=== PATIENT | female | born 2000 | race Caucasian/White ===

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

== ENCOUNTER 2018-05-30 13:03 | Emergency (ER) | payer MEDICAID, SELFPAY ==
[2018-05-30 13:04] VITALS: BP 120/71; PULSE 85; RESP 16; TEMP 36.6; O2SAT 100; BMI 24.6
[2018-05-30] MEDS: proCHLORPERazine 10 MG/2 ML Vial IV (15:47)
[2018-05-30] MEDS: 0.9% Normal Saline 1,000 ML 999 ML IV (15:47)
[2018-05-30] MEDS: Ketorolac 30 MG/ML Syringe IV (15:47)
[2018-05-30] MEDS: DiphenhydrAMINE 50 MG/ML Syringe IV (15:47)
[2018-05-30 15:50] VITALS: BP 120/77; PULSE 86; RESP 16; O2SAT 100
[2018-05-30 17:06] VITALS: BP 111/73; PULSE 69; RESP 14; O2SAT 99
--- NOTE | 2018-05-30 17:33 | ED.VISSUMM ---
- ER Visit Summary Date of Service: 05/30/18 Chief Complaint: Headache History of Present Illness: The patient is a 18 F with chronic recurrent headaches presents with a gradual onset of headache that started about 5 weeks ago and is not improved with outpatient medications. She has no vision changes but she has photophobia. She has no fever chills neck pain or any other symptoms. Physical Examination: Appears in slight distress Moist mucous membranes, no obvious facial deformity No C-spine tenderness supple neck. Regular rate and rhythm without any obvious murmurs Clear lungs bilaterally speaking in full sentences without any obvious respiratory distress Abdomen soft and nontender no guarding or rebound Moves all extremities without any difficulty or pain. Skin does not show any obvious rashes or lesions, no trauma. Alert oriented ?3 with no gross focal deficit Emergency Department Course and Treatment: Patient is given Toradol Compazine and Benadryl along with 1 L of IV fluids as of 1731 her headache is gone I will discharge her in stable condition Disposition: Discharge stable condition Impression: Headache This note was generated with [employer] dictation software. It may contain incorrect words, spelling, and punctuation that were not noted in review of the chart prior to signing ED Disposition - Plan for ED Patient: Chief Complaint: Headache Referrals: Mina Vu MD [Primary Care Provider] -
--- NOTE | 2018-05-30 17:38 | ED.DEP ---
ED Disposition - Plan for ED Patient: Disposition: Home or Assisted Living Chief Complaint: Headache Instructions: ED Headache Migraine Referrals: Mina Vu MD [Primary Care Provider] - 3-5 Days
[2018-05-30 17:48] VITALS: BP 113/90; PULSE 86; RESP 16; TEMP 36.7; O2SAT 99
== END 2018-05-30 17:49 | disposition home or self-care (01) ==
PROVIDERS: Emergency Provider Emergency Medicine; Family Provider Internal Medicine; PCP Internal Medicine
DX: R51 Headache (principal); G89.29 Other chronic pain; H53.149 Visual discomfort, unspecified; Z72.0 Tobacco use; Z79.899 Other long term (current) drug therapy
CPT/HCPCS: 96361; 96374; 96375; 99282; J7030; A4216

== ENCOUNTER → 2018-06-10 08:45 | Outpatient (CLI) | payer MEDICAID, SELFPAY ==
--- NOTE | 2018-06-10 08:47 | MRI_ITS ---
STUDY: MRI BRAIN WITH AND WITHOUT CONTRAST REASON FOR EXAM: Female, 18 years old. complicated migraine, frontal headache, weakness/memory loss during headache; x 8 wks TECHNIQUE: Standardized multiplanar fat and water weighted pulse sequences were obtained. 6 ml of Gadavist contrast material was administered intravenously for the contrast portion of the examination. COMPARISON: None. FINDINGS: Normal size of the ventricles and extra-axial spaces for the patient's age. Normal white matter tracts of the supratentorial brain. Normal bilateral basal ganglia. Normal thalami. There is no extra-axial fluid accumulation. Normal flow voids within the major intracranial circulation suggesting patency by spin echo criteria. Normal venous enhancement. There is no enhancing intra-axial or extra-axial abnormality. Normal sella turcica, pituitary gland, infundibular stalk, optic chiasm and hypothalamus. Normal tectal plate and pineal gland. Normal midbrain, sammy and medulla. Normal cerebellum. Normal basal cisterns. Normal bilateral temporal bones. Normal bilateral internal auditory canals. No demonstrated orbital abnormality, within the constraints of a routine brain study. Normal visualized paranasal sinuses. Normal calvarium and skull base. Normal visualized soft tissue structures. Normal visualized upper cervical spine. MRI/Brain W/WO Contrast IMPRESSION: Normal unenhanced and enhanced MRI of the brain. Electronically Signed: Haris Elliott MD at 9:16 EST Tel , Service support ,
== END ==
PROVIDERS: Family Provider Internal Medicine; PCP Internal Medicine; Visit Provider Nurse Practitioner Family
DX: G43.109 Migraine with aura, not intractable, without status migrainosus (principal)
CPT/HCPCS: 70553; A9585

== ENCOUNTER 2018-06-14 15:39 | Emergency (ER) | payer MEDICAID, SELFPAY ==
[2018-06-14 15:13] VITALS: BMI 24.7
[2018-06-14 15:40] VITALS: BP 129/70; PULSE 92; RESP 16; TEMP 36.7; O2SAT 100; BMI 24.4
--- NOTE | 2018-06-14 16:05 | ED.VISSUMM ---
- ER Visit Summary Date of Service: 06/14/18 Chief Complaint: Trouble urinating History of Present Illness: The patient is a 18 F history of migraine headaches. States that her last menstrual period was 05/20/2018. She had 2 days to decrease urinary output and some hematuria. Denies nausea vomiting or diarrhea. Denies any fluid retention. Denies any prior bladder or kidney history. No fever. No vaginal bleeding or discharge. Physical Examination: Well-appearing young female. Vital signs are stable and afebrile. Sh EENT exam unremarkable. Neck nontender. Lungs clear to auscultation bilaterally. Heart regular rhythm no murmur. Abdomen soft nontender. Normal bowel sounds. No peritoneal signs. Patient moving all 4 extremities. Calves are nontender without edema or cords. Neurologically the patient is awake alert with no focal motor deficits. There is Test Results: Urinalysis no acute abnormality. 1+ bacteria. But no other signs of infection. A culture was sent. Urine was sent by nursing was negative. Bladder scan was only 75. No signs of urinary retention. Emergency Department Course and Treatment: Clinically patient has a normal exam. Bladder scan and UA will be obtained. Treatment Plan: Patient be discharged home. Since she has what she believes is hematuria she will be discharged to follow-up with her primary care physician. Disposition: Discharge Impression: Gross hematuria of uncertain etiology This note was generated with [employer] dictation software. It may contain incorrect words, spelling, and punctuation that were not noted in review of the chart prior to signing ED Disposition - Plan for ED Patient: Chief Complaint: Complaint Referrals: Mina Vu MD [Primary Care Provider] -
[2018-06-14 16:33] LABS: Mucous, Urine 0 SEEN /hpf (<or=2+); Red Blood Cells-Urine 0 SEEN /hpf (0-5)
[2018-06-14 16:35] LABS: Color, Urine Yellow (Yellow); Glucose, Dipstick Normal (Normal); Ketone-Dipstick Negative (Negative); Leukocyte Esterase-Dipstick Negative /ul (Negative); Nitrite-Dipstick Negative (Negative); Occult Blood-Urine Negative /ul (Negative); Protein-Dipstick Negative (Negative); Urine Bilirubin Dipstick Negative (Negative); Urine Clarity Sl. Cloudy (Clear); Urine Urobilinogen Normal (Normal)
--- NOTE | 2018-06-14 16:46 | NURSING ---
PT REQUEST A PREG TEST. ORDER OBTAINED FROM DR. Jaqueline BOLANOS, RN [id number]
[2018-06-14 16:57] LABS: Bacteria 1+ /hpf (None Seen); Internal QC Validated? YES +Cl - CLEAR BKGD; Pregnancy, Urine Negative Negative; Squamous Epithelial Cells - UA 0-5 SEEN /hpf (5-10); White Blood Cells 0-5 SEEN /hpf (0-5)
--- NOTE | 2018-06-14 17:34 | ED.DEP ---
ED Disposition - Plan for ED Patient: Disposition: Home or Assisted Living Chief Complaint: Complaint Instructions: ED Hematuria Referrals: Mina Vu MD [Primary Care Provider] - 3-5 Days Additional Instructions: Return if feeling worse. Your urine showed no signs of infection. A urine culture was also sent when she will return in the next 24 hours and he will be notified if there is any signs of infection. Urine test was negative. All up with your doctor.
[2018-06-14 17:41] VITALS: BP 118/73; PULSE 80; RESP 14; O2SAT 100
== END 2018-06-14 17:42 | disposition home or self-care (01) ==
PROVIDERS: Emergency Provider Emergency Medicine; Family Provider Internal Medicine; PCP Internal Medicine
DX: R31.0 Gross hematuria (principal); R30.0 Dysuria; Z79.899 Other long term (current) drug therapy
CPT/HCPCS: 81001; 81025; 87086; 99282

== ENCOUNTER 2018-06-28 11:15 | Emergency (ER) | payer MEDICAID, SELFPAY ==
[2018-06-26 11:48] VITALS: BMI 24.4
[2018-06-28 11:16] VITALS: BP 134/76; PULSE 103; RESP 18; TEMP 36.5; O2SAT 100; BMI 24.5
--- NOTE | 2018-06-28 11:38 | ED.DCSUM_ITS ---
- ER Visit Summary Date of Service: 06/28/18 Chief Complaint: Headache History of Present Illness: The patient is a 18 F with history of migraines. She states she has had migraines for the past 5 weeks that are getting worse. She had an MRI of her brain last month was reportedly normal. Her amitriptyline dose was increased. She was seen at the [facility] 2 days ago and then at [facility] yesterday. Patient is complaining of generalized headache that is worse above her eyes. She did go to work this morning but left due to worsening headache. She reports black blurry vision that she had before with the severe headaches. She states she cannot feel her legs. Physical Examination: Vital signs unremarkable. Patient sitting upright in a wheelchair at bedside. She is assisted to the bed. Head neck examination reveals no sign of trauma. No meningismus. Heart is tachycardic and regular. Lung sounds are clear. Abdomen is soft nontender. Neuro exam reveals that she is tearful. She is moving all 4 extremities. She has strong distal pulses throughout. Test Results: CBC was a white count 12.5 with unremarkable differential. Chemistry studies significant for potassium 3.2 and a glucose of 73. Emergency Department Course and Treatment: Patient is given Toradol, Compazine, Benadryl, and IV fluids. On repeat evaluation she is sleeping comfortably. She easily awakens. Headache is significantly improved. Patient does state that her headache improved after receiving meds at [facility] yesterday, but returned last evening. I will give her prescriptions for the above meds to have at home as well. She will be given a couple days of potassium replacement. She will be referred to neurology for follow-up. Treatment Plan: [] Disposition: Discharge Impression: 1. Migraine, improved 2. Mild hypokalemia This note was generated with [employer] dictation software. It may contain incorrect words, spelling, and punctuation that were not noted in review of the chart prior to signing ED Disposition - Plan for ED Patient: Chief Complaint: Neuro S/Sx Referrals: Mina Vu MD [Primary Care Provider] -
[2018-06-28] MEDS: 0.9% Normal Saline 1,000 ML 999 ML IV (11:40)
[2018-06-28] MEDS: DiphenhydrAMINE 50 MG/ML Syringe 25 MG IV (11:40)
[2018-06-28] MEDS: proCHLORPERazine 10 MG/2 ML Vial IV (11:41)
[2018-06-28] MEDS: Ketorolac 30 MG/ML Syringe IV (11:41)
[2018-06-28 11:50] LABS: Absolute Lymphocyte Count 2.71 X10^3/ul (0.83-4.51); Absolute Neutrophil Count 8.8 X10^3/uL (2.0-7.7); Basophil# 0.01 X10^3/uL; Basophil% 0.1 % (0-1); Eosinophil# 0.01 X10^3/uL; Eosinophils% 0.1 % (0-5); Hematocrit 38.3 % (37-47); Hemoglobin 12.4 g/dl (12.0-15.0); Lymphocyte # 2.71 X10^3/ul (4.0); Lymphocyte % 21.7 % (19-41); Mean Corp Hgb Conc 32.4 g/gl (32-36); Mean Corpuscular Hgb 30.5 pg (27.0-32.0); Mean Corpuscular Volume 94.1 fL (81-99); Mean Platelet Vol. 9.4 fl (6.2-12.0); Monocyte# 0.89 X10^3/uL; Monocyte% 7.1 % (0-10); Neutrophil # 8.83 X10^3/uL (2.7-7.7); Neutrophil % 70.8 % (47-70); Platelet Count 306 K/mm3 (150-450); RBC Distribution Width CV 13.5 % (11.6-14.6); RBC Distribution Width SD 44.9 fl (35.1-43.9); Red Blood Count 4.07 M/mm3 (4.2-5.4); White Blood Count 12.5 K/mm3 (4.4-11.0)
[2018-06-28 11:51] LABS: POSITIVE COUNT NO; POSITIVE DIFFERENTIAL NO; POSITIVE MORPHOLOGY NO
[2018-06-28 12:07] LABS: Anion Gap 8 (5-15); BUN 14 mg/dL (7-18); BUN/Creat Ratio 19.3 RATIO (10-20); Calcium,Total 8.7 mg/dL (8.5-10.1); Chloride 107 mmol/L (98-107); Creatinine, Serum 0.73 mg/dL (0.55-1.02); EST Glomerular Filtration Rate 108 mL/min (>60); Est Glom Filt Rate - Afr Amer 131 mL/min (>60); Estimated Creatinine Clearance 92.76 ml/min; Glucose 73 mg/dL (74-106); Potassium 3.2 mmol/L (3.5-5.1); Sodium Level 142 mmol/L (136-145)
--- NOTE | 2018-06-28 12:44 | ED.DEP ---
ED Disposition - Plan for ED Patient: Disposition: Home or Assisted Living Chief Complaint: Neuro S/Sx Instructions: ED Headache Migraine, ED Potassium Deficiency Prescriptions: DiphenhydrAMINE [Benadryl] 50 mg PO Q6H PRN PRN #7 capsule PRN Reason: Headache Prochlorperazine Maleate [Compazine] 10 mg PO 4X/DAY PRN PRN #7 tablet PRN Reason: Headache Potassium Chloride [K-Dur] 20 meq PO BID #7 tablet Ketorolac [Toradol] 10 mg PO Q6H PRN #7 tablet PRN Reason: Pain Referrals: Mina Vu MD [Primary Care Provider] - 1-2 Weeks Pepe Daniels MD [STAFF PHYSICIAN] - As soon as possible
[2018-06-28 12:46] LABS: Pregnancy, Serum, hCG Quali. NEGATIVE Negative (0-9 Nonpreg)
[2018-06-28 13:03] VITALS: PULSE 103; RESP 16; O2SAT 100
== END 2018-06-28 13:04 | disposition home or self-care (01) ==
PROVIDERS: Emergency Provider Emergency Medicine; Family Provider Internal Medicine; PCP Internal Medicine
DX: G43.909 Migraine, unspecified, not intractable, without status migrainosus (principal); E87.6 Hypokalemia; F32.9 Major depressive disorder, single episode, unspecified; Z79.899 Other long term (current) drug therapy; Z87.891 Personal history of nicotine dependence
CPT/HCPCS: 80048; 84703; 85025; 96361; 96374; 96375; 99284; J7030; A4216

== ENCOUNTER → 2018-07-24 15:24 | Outpatient (CLI) | payer MEDICAID, SELFPAY ==
[2018-07-11 16:24] VITALS: BMI 24.5
[2018-07-24 17:49] LABS: Anion Gap 10 (5-15); BUN 15 mg/dL (7-18); BUN/Creat Ratio 23.2 RATIO (10-20); Calcium,Total 8.8 mg/dL (8.5-10.1); Chloride 105 mmol/L (98-107); Creatinine, Serum 0.65 mg/dL (0.55-1.02); EST Glomerular Filtration Rate 124 mL/min (>60); Est Glom Filt Rate - Afr Amer 150 mL/min (>60); Glucose 74 mg/dL (74-106); Potassium 3.5 mmol/L (3.5-5.1); Sodium Level 141 mmol/L (136-145)
== END ==
PROVIDERS: Family Provider Internal Medicine; PCP Internal Medicine; Referring Provider Nurse Practitioner Family; Visit Provider Nurse Practitioner Family
DX: E87.6 Hypokalemia (principal); R61 Generalized hyperhidrosis
CPT/HCPCS: 36415; 80048; 84443

== ENCOUNTER 2018-07-30 12:12 | Emergency (ER) | payer MEDICAID, SELFPAY ==
[2018-07-11 16:24] VITALS: BMI 24.5
[2018-07-30 12:13] VITALS: BP 115/69; PULSE 70; RESP 16; TEMP 36.8; O2SAT 100; BMI 24.3
[2018-07-30] MEDS: Metoclopramide 10 MG/2 ML Vial IV (12:41)
[2018-07-30] MEDS: Ketorolac 30 MG/ML Syringe IV (12:41)
[2018-07-30] MEDS: 0.9% Normal Saline 1,000 ML 1000 ML IV (12:41)
[2018-07-30] MEDS: DiphenhydrAMINE 50 MG/ML Syringe 25 MG IV (12:41)
--- NOTE | 2018-07-30 13:54 | ED.DCSUM_ITS ---
- ER Visit Summary Date of Service: 07/30/18 Chief Complaint: [Headache] History of Present Illness: The patient is a 18 F [presents to the emergency department complaint of a headache that started around 8 AM today. Patient has a history of migraines of a chronic nature from a young age. Patient is sched uled to see a neurologist in a couple of months. Patient states that she was started on Imitrex by her primary care physician and that worked for a while but now the headaches are becoming more regular again. Patient denies any falls or head injuries. Patient rates her headache as a 10 out of 10 and similar to prior headaches. Patient states the headache is diffuse and she describes photophobia. She describes nausea. Patient denies any falls or head injuries or recent illness.] Physical Examination: [HEENT-PERRLA, EOMI. Cranial nerves II through XII grossly intact. TMs clear. Mucous membranes moist. No adenopathy. Cardiovascular-regular rate and rhythm without murmur or ectopy Lungs-clear to auscultation, chest wall stable without crepitus or subcu emphyse ma Abdomen-normoactive bowel sounds, soft, nontender, no rebound or rigidity, no peritoneal signs. Neuro [id number] and heel gomez testing within normal limits, negative Romberg, negative pronator drift, fundi benign Extremities-intact ?4, normal range of motion, normal pulses, atraumatic] Test Results: [None indicated] Emergency Department Course and Treatment: [Patient was given a liter normal same fluid bolus as well as Reglan, Benadryl, and Toradol. Patient's headache improved from a 10 out of 10 to a 3 out of 10. Patient is requesting to go home.] Treatment Plan: [Patient to follow-up with her primary care physician as needed and follow-up with neurology. Disposition: [Discharged home in stable condition] Impression: [Migrainous cephalgia] This note was generated with [employer] dictation software. It may contain incorrect words, spelling, and punctuation that were not noted in review of the chart prior to signing ED Disposition - Plan for ED Patient: Chief Complaint: Headache Referrals: Mina Vu MD [Primary Care Provider] -
--- NOTE | 2018-07-30 13:54 | ED.DEP ---
ED Disposition - Plan for ED Patient: Chief Complaint: Headache Instructions: ED Headache Migraine Referrals: Mina Vu MD [Primary Care Provider] - 3-5 Days
[2018-07-30 14:14] VITALS: PULSE 67; RESP 18; O2SAT 100
== END 2018-07-30 14:14 | disposition home or self-care (01) ==
PROVIDERS: Emergency Provider Emergency Medicine; Family Provider Internal Medicine; PCP Internal Medicine
DX: G43.909 Migraine, unspecified, not intractable, without status migrainosus (principal); Z79.899 Other long term (current) drug therapy
CPT/HCPCS: 96361; 96374; 96375; 99284; J7030; A4216

== ENCOUNTER → 2018-09-12 17:47 | Outpatient (CLI) | payer MEDICAID, SELFPAY ==
[2018-09-12 15:21] VITALS: BMI 24.3
[2018-09-12 20:28] LABS: Chlamydia Trachomatis by PCR Negative (Negative); Neisserai gonorrhoeae by PCR Negative (Negative); Probe Check PASS; Sample Adequacy Control PASS; Specimen Processing Control PASS
== END ==
PROVIDERS: Family Provider Internal Medicine; PCP Internal Medicine; Referring Provider Nurse Practitioner Women's Health; Visit Provider Nurse Practitioner Women's Health
DX: Z11.3 Encounter for screening for infections with a predominantly sexual mode of transmission (principal)
CPT/HCPCS: 87491; 87591

== ENCOUNTER → 2018-12-20 15:30 | Outpatient (CLI) | payer MEDICAID, SELFPAY ==
[2018-12-20 15:20] VITALS: BMI 30.2
== END ==
PROVIDERS: Family Provider Internal Medicine; PCP Internal Medicine; Visit Provider Nurse Practitioner Family
DX: J02.9 Acute pharyngitis, unspecified (principal)
CPT/HCPCS: 87070; 87077; 87186

== ENCOUNTER 2019-01-31 10:18 | Emergency (ER) | payer MEDICAID, SELFPAY ==
[2018-12-20 15:20] VITALS: BMI 30.2
[2019-01-31 10:19] VITALS: BP 118/84; PULSE 82; RESP 18; TEMP 36.6; O2SAT 100; BMI 27.4
--- NOTE | 2019-01-31 10:36 | ED.VISSUMM ---
- ER Visit Summary Date of Service: 01/31/19 Chief Complaint: Abdominal pain History of Present Illness: The patient is a 18 F who presents the emergency department for the evaluation of abdominal pain with nausea. Patient states that last night around 2100 hrs. she was in bed and developed a sharp stabbing pain in her right upper quadrant. She had nausea with it but no vomiting. It subsided and she went to sleep. This morning she woke and went to work. She arrived at approximately 0600hours she ate breakfast. She states that about 3 hours later the sharp stabbing pain returned. Does not radiate. She had a normal bowel movement. She has not vomited. She notes urinary frequency that began yesterday without dysuria or hematuria. No fevers. She states that gallbladder and appendicitis runs in the family but not kidney stones. Physical Examination: Afebrile vital signs are stable Gen: Well-nourished well-developed Head: Normocephalic atraumatic Eyes: Perrl EOMI ENT: TMs clear no rhinorrhea moist mucous membranes Neck: Supple no lymphadenopathy no JVD nontender CVS: Regular rate rhythm no murmurs normal S1-S2 Respiratory: No distress clear to auscultation bilaterally chest nontender Abdomen: Soft tenderness in the right lower right middle right upper quadrant without guarding or rebound nondistended normal bowel sounds no masses Back: Nontender Extremity: Nontender no edema Skin: Normal color no rash Neuro: alert orientated ?3 CN II-XII intact normal strength sensation reflexes gait cerebellar Psych: Normal affect normal mood Test Results: CBC CMP lipase urine and test were negative. CT the pelvis demonstrated increased amount of fecal material in the right. Emergency Department Course and Treatment: I suspect with the patient is feeling is her: Attempting to push the increased stool on the right side of her colon crossed. I do not see any acute emergency requiring admission or surgery. Patient will drink apple juice and may use a dose of magnesium citrate to help. Impression: 1. Acute abdominal pain 2. Constipation This note was generated with [employer] dictation software. It may contain incorrect words, spelling, and punctuation that were not noted in review of the chart prior to signing ED Disposition - Plan for ED Patient: Disposition: Home or Assisted Living Instructions: CONSTIPATION (Adult) Prescriptions: Magnesium Citrate [Citrate Of Magnesia] 300 ml PO X1 #1 bottle Prescription Printed Referrals: Mina Vu MD [Primary Care Provider] - 3-5 Days if not improving
[2019-01-31] MEDS: Ondansetron 4 MG/2 ML Vial IV (10:59)
[2019-01-31 11:04] LABS: Absolute Lymphocyte Count 2.29 X10^3/ul (0.83-4.51); Absolute Neutrophil Count 3.7 X10^3/uL (2.0-7.7); Basophil# 0.02 X10^3/uL; Basophil% 0.3 % (0-1); Eosinophils% 1.5 % (0-5); Hematocrit 39.2 % (37-47); Hemoglobin 13.1 g/dl (12.0-15.0); Lymphocyte # 2.29 X10^3/ul (4.0); Lymphocyte % 34.9 % (19-41); Mean Corp Hgb Conc 33.4 g/gl (32-36); Mean Corpuscular Hgb 31.9 pg (27.0-32.0); Mean Corpuscular Volume 95.4 fL (81-99); Mean Platelet Vol. 9.6 fl (6.2-12.0); Monocyte# 0.47 X10^3/uL; Monocyte% 7.2 % (0-10); Neutrophil # 3.67 X10^3/uL (2.7-7.7); Neutrophil % 55.8 % (47-70); POSITIVE COUNT NO; POSITIVE DIFFERENTIAL NO; POSITIVE MORPHOLOGY NO; Platelet Count 272 K/mm3 (150-450); RBC Distribution Width CV 13.3 % (11.6-14.6); RBC Distribution Width SD 46.6 fl (35.1-43.9); Red Blood Count 4.11 M/mm3 (4.2-5.4); White Blood Count 6.6 K/mm3 (4.4-11.0)
[2019-01-31 11:12] LABS: Mucous, Urine 0 SEEN /hpf (<or=2+); Red Blood Cells-Urine 0 SEEN /hpf (0-5); White Blood Cells 0 SEEN /hpf (0-5)
[2019-01-31 11:21] LABS: AST(SGOT) 21 U/L (15-37); Alanine Aminotransfer ALT/SGPT 25 U/L (13-56); Albumin, Serum 3.8 g/dL (3.2-5.0); Alkaline Phosphatase 59 U/L (45-117); Anion Gap 5 (5-15); BUN 13 mg/dL (7-18); BUN/Creat Ratio 17.9 RATIO (10-20); Bilirubin, Direct 0.06 mg/dL (0.00-0.30); Calcium,Total 9.2 mg/dL (8.5-10.1); Chloride 105 mmol/L (98-107); Creatinine, Serum 0.73 mg/dL (0.55-1.02); EST Glomerular Filtration Rate 107 mL/min (>60); Est Glom Filt Rate - Afr Amer 130 mL/min (>60); Estimated Creatinine Clearance 101.69 ml/min; Globulin 3.7 g/dL (2.2-4.2); Glucose 89 mg/dL (74-106); Lipase 72 U/L (73-393); Potassium 4.2 mmol/L (3.5-5.1); Protein, Total 7.5 g/dL (6.4-8.2); Sodium Level 139 mmol/L (136-145)
[2019-01-31 11:28] LABS: Color, Urine Yellow (Yellow); Glucose, Dipstick Normal (Normal); Ketone-Dipstick Negative (Negative); Leukocyte Esterase-Dipstick Negative /ul (Negative); Nitrite-Dipstick Negative (Negative); Occult Blood-Urine Negative /ul (Negative); Protein-Dipstick Negative (Negative); Specific Gravity, Urine 1.005 (1.002-1.030); Urine Bilirubin Dipstick Negative (Negative); Urine Clarity Clear (Clear); Urine Urobilinogen Normal (Normal)
[2019-01-31 11:31] LABS: Internal QC Validated? YES +Cl - CLEAR BKGD; Pregnancy, Urine Negative Negative
[2019-01-31 11:37] LABS: Bacteria 1+ /hpf (None Seen); Squamous Epithelial Cells - UA 0-5 SEEN /hpf (5-10)
--- NOTE | 2019-01-31 12:00 | CT_ITS ---
STUDY: CT ABDOMEN AND PELVIS WITH CONTRAST REASON FOR EXAM: Female, 18 years old. Right-sided abdominal pain with nausea RADIATION DOSAGE (If Supplied By Facility): CTDIvol = ( 15.31 ) mGy, DLP = ( 854.91 ) mGycm TECHNIQUE: Transaxial images were obtained from the dome of the diaphragm to the symphysis pubis without oral contrast. 100 IV Isovue 300 was administered. Sagittal and coronal images were reconstructed. Individualized dose optimization techniques were used for this CT. COMPARISON: 04/06/2017 FINDINGS: The visualized lung bases are unremarkable. The visualized portions of the heart are within normal limits. Normal liver. Normal gallbladder and extrahepatic biliary system. Normal spleen. Normal pancreas. Normal bilateral adrenal glands. Normal right kidney. Normal left kidney. Normal visualized stomach. Normal small intestine. Moderate fecal retention throughout the colon. The appendix is visualized and appears normal. Normal abdominal aorta. Normal inferior vena cava. Normal retroperitoneum. Normal urinary bladder. Irregular appearance of the uterus suggesting bicornuate or septate uterus. Normal abdominal wall. Normal osseous structures. CT/Abdomen/Pelvis W IV Cont ONLY IMPRESSION: No acute findings. Fecal retention throughout the colon suggesting constipation. Normal appendix. Possible bicornuate versus septate uterus. Electronically Signed: David Burkett DO at 12:36 EDT Tel , Service support ,
== END 2019-01-31 13:38 | disposition home or self-care (01) ==
PROVIDERS: Emergency Provider Emergency Medicine; Family Provider Internal Medicine; PCP Internal Medicine
DX: R10.11 Right upper quadrant pain (principal); K59.00 Constipation, unspecified; R35.0 Frequency of micturition; K21.9 Gastro-esophageal reflux disease without esophagitis; F41.9 Anxiety disorder, unspecified; E66.9 Obesity, unspecified; Z79.899 Other long term (current) drug therapy
CPT/HCPCS: 74177; 80048; 80076; 81001; 81025; 83690; 85025; 96374; 99284; Q9967; A4216; J2405

== ENCOUNTER → 2019-02-08 16:25 | Outpatient (CLI) | payer MEDICAID, SELFPAY ==
[2019-02-08 16:25] VITALS: BMI 27.4
--- NOTE | 2019-02-08 16:30 | RAD_ITS ---
STUDY: X-RAY - LUMBAR SPINE REASON FOR EXAM: Female, 18 years old. Back pain TECHNIQUE: 5 view(s) of the lumbar spine were obtained. COMPARISON: 01/09/2015 FINDINGS: Normal lumbar lordosis. There is no substantial scoliosis. There is a normal alignment of the vertebrae. Normal vertebral bodies and endplates. Seen is mild narrowing of the L5-S1 disc space. Otherwise normal disc space heights. There is no demonstrated fracture. The soft tissue structures are unremarkable. RAD/L/S Spine Min 4 Views IMPRESSION: No change or acute abnormality. Mild narrowing of the disc at L5-S1. Electronically Signed: Joshua Wilkerson MD at 16:51 EDT , Service support ,
== END ==
PROVIDERS: Family Provider Internal Medicine; PCP Internal Medicine; Referring Provider Internal Medicine; Visit Provider Internal Medicine
DX: M54.9 Dorsalgia, unspecified (principal)
CPT/HCPCS: 72110

== ENCOUNTER 2019-03-30 15:00 | Outpatient (RCR) | payer MEDICAID, SELFPAY ==
[2019-02-08 16:25] VITALS: BMI 27.4
--- NOTE | 2019-02-21 16:42 | HP.PTEVAL_ITS ---
Patient's Visit Information FAISAL FERNÁNDEZ is a 19 year old F referred to Physical Therapy by Mina Vu MD with a diagnosis of DORSALGIA. Date of Evaluation: 02/21/19 Physical Therapist: Stephanie Olson PT, Cert MDT - Visit Plan Frequency: 2-3x /Week Duration: 4-6 Weeks Plan: AQUATIC THERAPY FOR PAIN RELIEF, POSTURE CORRECTION/STRENGTHENING, INSTRUCTION IN APPROPRIATE BODY MECHANICS AND ACTIVITY MODIFICATIONS. DLS STARTING WITH A NEUTRAL SPINE PROGRESSING ROM TOLERATED. KYLIE LE ROM, STRETCHING AND STRENGTHENING. HEP INSTRUCTION. 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 Disability: NO. Present symptoms: RIGHT LOW BACK PAIN. REALLY BAD SHOOTING PAINS THAT COME AND GO ALL THE WAY DOWN RIGHT LEG TO TOES BUT MAINLY BACK PAIN. Present since: HIGH SCHOOL. Pain Scale: WORST 9/10, LEAST 2/10. Currently: 2/10. Commenced as a result of: NO APPARENT REASON. Symptoms at onset: LOW BACK - IT WAS SO BAD I COULDN'T EVEN WALK. Worse: SWEEPING, LIFTING, PULLING, BENDING. Better: LYING ON RIGHT SIDE. Disturbed sleep: NO. Previous history/Previous treatment: H/O OF PHYSICAL THERAPY AND CHIROPRACTIC. TEMPORARY RELIEF WITH CHIROPRACTOR. NO BACK SURGERY. DX'D WITH HERNIATED DISC IN HIGH SCHOOL AND SURGERY WAS RECOMMENDED AT THAT TIME BUT PATIENT DECLINED. Coughing/sneezing/straining: NEGATIVE. Gait: BACK GETS SORE WITH TOO MUCH WALKING. Difficulty initiating urinatin: NO. Accidents: NO. Unexplained weight loss: NO. Imaging: NO MRI. BACK X-RAYS RECENTLY - PATIENT IS NOT SURE OF RESULTS BECAUSE CAN'T REMEMBER WHAT THE NURSE SAID. [facility] EMR SHOWS: STUDY: X-RAY - LUMBAR SPINE. REASON FOR EXAM: Female, 18 years old. Back pain. TECHNIQUE: 5 view(s) of the lumbar spine were obtained. COMPARISON: 01/09/2015. FINDINGS: Normal lumbar lordosis. There is no substantial scoliosis. There is a. normal alignment of the vertebrae. Normal vertebral bodies and endplates. Seen is mild narrowing of the L5-S1 disc space. Otherwise normal disc. space heights. There is no demonstrated fracture. The soft tissue structures are unremarkable. RAD/L/S Spine Min 4 Views. IMPRESSION: No change or acute abnormality. Mild narrowing of the disc at L5-S1. PMH: INTERMITTENT ABDOMINAL PAIN, ANXIETY, DEPRESSION, CHRONIC MIGRAINES, H/O HTN BUT PATIENT REPORTS THEY TOOK HER OFF BLOOD PRESSURE MEDICINE. Recent major surgery: PLOF (Prior Level of Function): - Objective Sitting/Standing Posture: POOR. Lordosis: NORMAL. Lateral shift: NO. Relevant shift: N/A. Active Correction of posture: BETTER. Other Observations: INDEP AMBULATION INTO PT WITH NO GROSS DEVIATIONS NOTED. INDEP TRANSFERS. Motor deficit: KYLIE LE'S 5/5 WITH MMT'ING EXCEPT KYLIE HIPS GRADED 4- 5/5. Sensory deficit: NO. ROM deficit: KYLIE LE'S WFL. Reflexes: 2/3 KYLIE LE'S. Dural Signs: NEGATIVE KYLIE LE'S. Lumbar mvmt loss: flex - MINIMAL - INCREASES RIGHT LOW BACK PAIN. ext - MODERATE - INCREASES RIGHT LOW BACK PAIN. R SG - MIN - NE. L SG - NIL - NE. Core strength: POOR. Palpation: NO ACUTE LUMBAR REGION TENDERNESS. SHE IS ALSO NOT TENDER WITH PALPATION IN HER HIPS. - Goals Goal 1:: DECREASE C/O RIGHT LOW BACK AND RIGHT LE SX'S. Goal Time Frame: 4-6 Weeks Goal 2:: IMPROVE BENDING, LIFTING, ADL AND WORK FUNCTION Goal Time Frame: 4-6 Weeks Goal 3:: INSTRUCT IN PROPHYLAXIS Goal Time Frame: 4-6 Weeks - Rehabilitation Potential Rehabilitation Potential: Fair - Anticipated Interventions Patient/Client Instruction: Educate patient on: Condition, Plan of Care, Risk Factors, Benefits of Fitness Program For the Purpose of:: To improve self management Therapeutic Exercise to Include: Strength training, Body mechanics, Postural training, In an aquatic setting, Dynamic Lumbar Stabilization For the Purpose of:: To decrease pain, To increase ROM, To improve muscle performance and motor function, To increase tolerance to activity/condition/position, To improve ability of physical actions for home/community/work/leisure Thank you for the opportunity to evaluate your patient. For Medicare and Medicare HMO plans, please review the plan of care and approve it. It will need to be FAXED BACK to us at [phone] for Medicare purposes. For Medicare only, by signing this I certify the plan of care. Please let me know if there are questions or concerns regarding this plan of care. Physician Signature: Date:
--- NOTE | 2019-03-30 15:27 | HP.PTDCSUM ---
HP - PT D/C Summary It has been my pleasure to treat FAISAL FERNÁNDEZ under orders from Mina Vu MD, for the diagnosis of DORSALGIA for a total of 10 visit(s). Discharge Date: 03/30/19 Please see the following information for a summary of their discharge status. - Subjective Subjective: PATIENT REPORTS HER BACK ISN'T BAD IT WAS BUT IT HAS BEEN BOTHERING HER TODAY FOR NO APPARENT REASON. PATIENT REPORTS THAT THERAPY HAS HELPED HER LEGS AND HER BACK. 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 PATIENT REPORTS SHE IS GLAD SHE DID PHYSICAL THERAPY. - Pain right LB Pain Intensity (Out of 10): 4 - Overall Improvement % Improvement: 80 - Objective Objective/Function: ALL PT GOALS HAVE BEEN MET. KYLIE LE STRENGTH IS 5/5 WITH MMT'ING BUT SHE STILL HAS POOR CORE STRENGTH AND EX'S HAVE BEEN GIVEN FOR THIS. Lumbar mvmt loss: flex - NIL. ext - MIN. R SG - NIL - NE. L SG - NIL - NE. PATIENT DENIES INCREASED PAIN WITH ROM TESTING TODAY. Core strength: POOR. Palpation: NO ACUTE LUMBAR REGION TENDERNESS. SHE IS ALSO NOT TENDER WITH PALPATION IN HER HIPS. - Goals Goal 1:: DECREASE C/O RIGHT LOW BACK AND RIGHT LE SX'S. Goal Progress: Goal Met Goal 2:: IMPROVE BENDING, LIFTING, ADL AND WORK FUNCTION Goal Progress: Goal Met Goal 3:: INSTRUCT IN PROPHYLAXIS Goal Progress: Goal Met - Plan Plan: D/C TO INDEP EX. PATIENT IS AGREEABLE. - D/C Information If there are questions or concerns regarding this patient's physical therapy, please feel free to call me at [phone]. Thank you for the referral of this patient. Sincerely, Stephanie Olson, PT, Cert MDT
== END 2019-03-30 19:00 | disposition home or self-care (01) ==
LOC: PT 15:00
PROVIDERS: Family Provider Internal Medicine; PCP Internal Medicine; Referring Provider Internal Medicine; Visit Provider Internal Medicine
DX: M54.9 Dorsalgia, unspecified (principal)
CPT/HCPCS: 97110; 97161; 97530

== ENCOUNTER 2019-05-29 07:15 | Emergency (ER) | payer MEDICAID, SELFPAY ==
[2019-05-09 15:06] VITALS: BMI 27.4
[2019-05-29 07:15] VITALS: BP 122/68; PULSE 92; RESP 18; TEMP 37.1; O2SAT 100; BMI 31.2
--- NOTE | 2019-05-29 07:42 | ED.DCSUM_ITS ---
History of Present Illness Chief Complaint: Headache Informant: Patient Onset: Days - 3 Narrative: Patient presents with gradual onset of headache that started 3 days ago. She has chronic recurrent headaches she has had migraines for quite some time in fact she needed to be admitted for these migraines a month and a half ago at [facility] per her. She takes daily medications for these migraines but she does not know what they are or who her doctor is, she tells me that [facility] at the [facility]. She has no fever chills or visual changes. She denies any cough or congestion, her headache is frontal and posterior without any neck involvement. Past Medical History - Allergies and Home Meds Allergies/Adverse Reactions: Allergies codeine phosphate [From Tylenol-Codeine #3] Allergy (Verified 05/29/19 07:18) Hives morphine Allergy (Verified 05/29/19 07:18) Itching oxycodone HCl [From Percocet] Allergy (Verified 05/29/19 07:18) Hives red dye Allergy (Verified 05/29/19 07:18) Hives Primary Care Physician: Mina Vu MD [Primary Care Provider] - Past Medical History: None Smoking Status: Never smoker Review of Systems All systems negative except as indicated General: Denies: Fever Eyes: Denies: Visual changes - bilaterally Cardiovascular: Denies: Chest pain Gastrointestinal: Denies: Abdominal pain, Nausea Musculoskeletal: Denies: Myalgias, Neck pain Neurological: Reports: Headache. Denies: Weakness, Parasthesia Psych: Reports: Anxiety Physical Exam Vital Signs/Narrative: Vital Signs Temp Pulse Resp BP Pulse Ox 05/29/19 07:15 98.8 F 92 18 122/68 H 100 General: Well nourished, Well developed, - - Appears in slight distress ENT: Moist mucous membranes Cardiovascular: Regular rate, Regular rhythm Respiratory: No distress Abdomen: Soft, Nontender Back: Nontender, Normal Inspection Extremities: Nontender, No edema Skin: Normal color, No rash Neurological: Alert, Oriented x3 Psychological: Normal affect Diagnostic/Tx/Re-eval - Medical Decision Making Patient has chronic recurrent headaches. She has a normal neurological exam and a normal physical exam. This feels like her last migraine. No diagnostic treatment is needed. She was given IV fluids, analgesics and she improved, I believe the patient is stable for discharge Discharge stable condition ED Disposition - Plan for ED Patient: Disposition: Home or Assisted Living Diagnosis: Headache Instructions: ED, Migraine (Classical) Referrals: Mina Vu MD [Primary Care Provider] - 3-5 Days
[2019-05-29] MEDS: 0.9% Normal Saline 1,000 ML 999 ML IV (07:52)
[2019-05-29] MEDS: DiphenhydrAMINE 50 MG/ML Syringe IV (07:53)
[2019-05-29] MEDS: HYDROmorphone 0.5 MG/0.5 ML SYRINGE IV (07:53)
[2019-05-29] MEDS: proCHLORPERazine 10 MG/2 ML Vial IV (07:53)
[2019-05-29] MEDS: Ketorolac 30 MG/ML Syringe IV (08:12)
[2019-05-29 09:45] VITALS: BP 119/69; PULSE 85; RESP 18; O2SAT 99
== END 2019-05-29 10:09 | disposition home or self-care (01) ==
LOC: ED 07:49
PROVIDERS: Emergency Provider Emergency Medicine; Family Provider Internal Medicine; PCP Internal Medicine
DX: R51 Headache (principal); G89.29 Other chronic pain; F41.9 Anxiety disorder, unspecified; Z88.5 Allergy status to narcotic agent; Z88.6 Allergy status to analgesic agent
CPT/HCPCS: 96361; 96365; 96366; 96375; 99285; J7030

== ENCOUNTER → 2019-07-11 15:00 | Outpatient (CLI) | payer MEDICAID, SELFPAY ==
[2019-07-11 15:06] VITALS: BMI 31.8
[2019-07-12 11:20] LABS: Red Blood Cells-Urine 0 SEEN /hpf (0-5); White Blood Cells 0 SEEN /hpf (0-5)
[2019-07-12 12:14] LABS: Color, Urine Yellow (Yellow); Glucose, Dipstick Normal (Normal); Ketone-Dipstick Negative (Negative); Leukocyte Esterase-Dipstick Negative /ul (Negative); Nitrite-Dipstick Negative (Negative); Occult Blood-Urine Negative /ul (Negative); Protein-Dipstick Negative (Negative); Urine Bilirubin Dipstick Negative (Negative); Urine Clarity Sl. Cloudy (Clear); Urine Urobilinogen Normal (Normal)
[2019-07-12 12:29] LABS: Bacteria 1+ /hpf (None Seen); Mucous, Urine RARE /hpf (<or=2+); Squamous Epithelial Cells - UA 0-5 SEEN /hpf (5-10)
== END ==
PROVIDERS: Family Provider Internal Medicine; PCP Internal Medicine; Visit Provider Nurse Practitioner Family
DX: R33.9 Retention of urine, unspecified (principal)
CPT/HCPCS: 81001

== ENCOUNTER → 2019-07-13 15:01 | Outpatient (CLI) | payer MEDICAID, SELFPAY ==
[2019-07-11 15:06] VITALS: BMI 31.8
[2019-07-13 16:12] LABS: T4 Free Direct 0.86 ng/dL (0.76-1.46); Thyroid Stim Hormone (TSH) 1.91 uIU/mL (0.358-3.74)
== END ==
PROVIDERS: Family Provider Internal Medicine; PCP Internal Medicine; Referring Provider Nurse Practitioner Family; Visit Provider Nurse Practitioner Family
DX: R63.5 Abnormal weight gain (principal)
CPT/HCPCS: 36415; 84439; 84443

== ENCOUNTER → 2019-08-21 | Outpatient (CLI) | payer MEDICAID, SELFPAY ==
[2019-08-21 16:35] VITALS: BMI 31.8
[2019-08-22 09:39] LABS: Mucous, Urine 0 SEEN /hpf (<or=2+); Red Blood Cells-Urine 0 SEEN /hpf (0-5)
[2019-08-22 12:29] LABS: Color, Urine Yellow (Yellow); Glucose, Dipstick Normal (Normal); Ketone-Dipstick Negative (Negative); Leukocyte Esterase-Dipstick Negative /ul (Negative); Nitrite-Dipstick Negative (Negative); Occult Blood-Urine 25 /ul (Negative); Protein-Dipstick Negative (Negative); Specific Gravity, Urine 1.015 (1.002-1.030); Urine Bilirubin Dipstick Negative (Negative); Urine Clarity Sl. Cloudy (Clear); Urine Urobilinogen Normal (Normal)
[2019-08-22 12:48] LABS: Amorphous Sediment 2+; Bacteria 1+ /hpf (None Seen); Squamous Epithelial Cells - UA 0-5 SEEN /hpf (5-10); White Blood Cells 0-5 SEEN /hpf (0-5)
== END | disposition home or self-care (01) ==
LOC: LABSPEC 08-22 09:36
PROVIDERS: PCP Internal Medicine; Referring Provider Nurse Practitioner Family; Visit Provider Nurse Practitioner Family
DX: R30.0 Dysuria (principal)
CPT/HCPCS: 81001; 87086; 87088

== ENCOUNTER → 2019-09-13 16:45 | Outpatient (CLI) | payer MEDICAID, SELFPAY ==
[2019-09-13 16:20] VITALS: BMI 33.3
[2019-09-14 08:58] LABS: Mucous, Urine 0 SEEN /hpf (<or=2+); Red Blood Cells-Urine 0 SEEN /hpf (0-5)
[2019-09-14 13:17] LABS: Color, Urine Yellow (Yellow); Glucose, Dipstick Normal (Normal); Ketone-Dipstick Negative (Negative); Leukocyte Esterase-Dipstick Negative /ul (Negative); Nitrite-Dipstick Negative (Negative); Occult Blood-Urine Negative /ul (Negative); Protein-Dipstick Negative (Negative); Specific Gravity, Urine 1.015 (1.002-1.030); Urine Bilirubin Dipstick Negative (Negative); Urine Clarity Sl. Cloudy (Clear); Urine Urobilinogen Normal (Normal)
[2019-09-14 13:39] LABS: Bacteria 2+ /hpf (None Seen); Squamous Epithelial Cells - UA 0-5 SEEN /hpf (5-10); White Blood Cells 0-5 SEEN /hpf (0-5)
== END ==
PROVIDERS: PCP Internal Medicine; Referring Provider Internal Medicine; Visit Provider Internal Medicine
DX: N39.0 Urinary tract infection, site not specified (principal)
CPT/HCPCS: 81001

== ENCOUNTER → 2019-09-28 14:25 | Outpatient (CLI) | payer MEDICAID, SELFPAY ==
[2019-09-27 14:58] VITALS: BMI 31.8
--- NOTE | 2019-09-28 14:40 | RAD_ITS ---
STUDY: X-RAY - LUMBAR SPINE REASON FOR EXAM: Female, 19 years old. Radiating low back pain TECHNIQUE: 5 view(s) of the lumbar spine were obtained. COMPARISON: 02/08/2019 FINDINGS: Normal lumbar lordosis. There is no substantial scoliosis. There is a normal alignment of the vertebrae. Normal vertebral bodies and endplates. Normal disc space heights, except for stable mild narrowing at L5/S1. There is no demonstrated fracture. The soft tissue structures are unremarkable. RAD/L/S Spine Min 4 Views IMPRESSION: No acute findings or significant interval change. Stable mild disc space narrowing at L5/S1 Electronically Signed: Kalen Singh MD at 9:01 EST , Service support ,
== END ==
PROVIDERS: PCP Internal Medicine; Referring Provider Internal Medicine; Visit Provider Internal Medicine
DX: M54.9 Dorsalgia, unspecified (principal); G89.29 Other chronic pain; M54.10 Radiculopathy, site unspecified
CPT/HCPCS: 72110

== ENCOUNTER → 2020-04-28 15:19 | Outpatient (CLI) | payer MEDICAID, SELFPAY ==
[2020-04-28 14:41] VITALS: BMI 31.8
[2020-04-28 17:29] LABS: ALB/GLOB Ratio 1.1 RATIO (0.9-2.4); AST(SGOT) 15 U/L (15-37); Alanine Aminotransfer ALT/SGPT 23 U/L (13-56); Alkaline Phosphatase 69 U/L (45-117); Anion Gap 5 (5-15); BUN 11 mg/dL (7-18); BUN/Creat Ratio 14.1 RATIO (10-20); Chloride 106 mmol/L (98-107); Creatinine, Serum 0.78 mg/dL (0.55-1.02); EST Glomerular Filtration Rate 98 mL/min (>60); Est Glom Filt Rate - Afr Amer 119 mL/min (>60); Globulin 3.8 g/dL (2.2-4.2); Glucose 87 mg/dL (74-106); Protein, Total 7.8 g/dL (6.4-8.2); Sodium Level 137 mmol/L (136-145); T4 Free Direct 0.97 ng/dL (0.76-1.46); Thyroid Stim Hormone (TSH) 2.07 uIU/mL (0.358-3.74)
== END ==
PROVIDERS: PCP Internal Medicine; Visit Provider Internal Medicine
DX: R35.8 Other polyuria (principal); R63.2 Polyphagia; N93.9 Abnormal uterine and vaginal bleeding, unspecified
CPT/HCPCS: 36415; 80053; 84439; 84443

== ENCOUNTER → 2020-09-03 16:08 | Outpatient (CLI) | payer MEDICAID, SELFPAY ==
[2020-09-03 08:13] VITALS: BMI 31.8
[2020-09-03 17:25] LABS: Absolute Lymphocyte Count 2.98 X10^3/uL (0.83-4.51); Absolute Neutrophil Count 3.3 X10^3/uL (2.0-7.7); Basophil# 0.02 X10^3/uL; Basophil% 0.3 % (0-1); Eosinophil# 0.12 X10^3/uL; Eosinophils% 1.7 % (0-5); Hematocrit 39.8 % (37-47); Lymphocyte # 2.98 X10^3/ul (4.0); Lymphocyte % 42.9 % (19-41); Mean Corp Hgb Conc 32.7 g/dL (32-36); Mean Corpuscular Hgb 30.1 pg (27.0-32.0); Mean Corpuscular Volume 92.1 fL (81-99); Mean Platelet Vol. 10.4 fl (6.2-12.0); Monocyte# 0.47 X10^3/uL; Monocyte% 6.8 % (0-10); NRBC Flagged by Analyzer 0 % (0-5); Neutrophil # 3.33 X10^3/uL (2.7-7.7); Neutrophil % 47.9 % (47-70); Platelet Count 274 K/mm3 (150-450); RBC Distribution Width CV 13.2 % (11.6-14.6); RBC Distribution Width SD 45.1 fl (35.1-43.9); Red Blood Count 4.32 M/mm3 (4.2-5.4)
[2020-09-03 17:54] LABS: ALB/GLOB Ratio 1.1 RATIO (0.9-2.4); AST(SGOT) 11 U/L (15-37); Alanine Aminotransfer ALT/SGPT 18 U/L (13-56); Albumin, Serum 4.2 g/dL (3.2-5.0); Alkaline Phosphatase 76 U/L (45-117); Anion Gap 6 (5-15); BUN 17 mg/dL (7-18); Calcium,Total 9.2 mg/dL (8.5-10.1); Chloride 104 mmol/L (98-107); Creatinine, Serum 0.63 mg/dL (0.55-1.02); EST Glomerular Filtration Rate 125 mL/min (>60); Est Glom Filt Rate - Afr Amer 151 mL/min (>60); Globulin 3.7 g/dL (2.2-4.2); Glucose 86 mg/dL (74-106); Lipase 70 U/L (73-393); Potassium 3.8 mmol/L (3.5-5.1); Protein, Total 7.9 g/dL (6.4-8.2); Sodium Level 138 mmol/L (136-145)
== END ==
PROVIDERS: PCP Internal Medicine; Referring Provider Internal Medicine; Visit Provider Internal Medicine
DX: R10.11 Right upper quadrant pain (principal); R14.0 Abdominal distension (gaseous)
CPT/HCPCS: 36415; 80053; 83690; 85025

== ENCOUNTER → 2020-09-03 16:51 | Outpatient (CLI) | payer MEDICAID, SELFPAY ==
[2020-09-03 08:13] VITALS: BMI 31.8
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
== END ==
PROVIDERS: PCP Internal Medicine; Referring Provider Internal Medicine; Visit Provider Internal Medicine
DX: R10.11 Right upper quadrant pain (principal); R14.0 Abdominal distension (gaseous)
CPT/HCPCS: 36415; 76705; 80053; 83690; 85025

== ENCOUNTER → 2020-09-17 15:35 | Outpatient (CLI) | payer MEDICAID, SELFPAY ==
[2020-09-11 15:23] VITALS: BMI 34.0
--- NOTE | 2020-09-17 15:38 | US_ITS ---
STUDY: ULTRASOUND OF THE FEMALE PELVIS - COMPLETE REASON FOR EXAM: Female, 20 years old. Pelvic pain. LMP: 08/07/2020. TECHNIQUE: Transabdominal and Transvaginal TECHNICAL QUALITY: Adequate. COMPARISON: CT of the abdomen and pelvis, 01/31/2015. FINDINGS: The uterus is anteverted and is in a midline position. The uterus measures 6.6 x 3.3 x 1.9 cm. Normal uterine cervix. The endometrium measures 10 mm in thickness, and is hyperechoic. There is no demonstrated endometrial mass. There is slight irregularity of the left posterior fundal wall thought to correlate with the fibroid seen on CT. This is ill-defined and not well visualized on the sagittal view. It is best seen on image 23 series 1-1. I.U.D. - The patient does not have an I.U.D. The right ovary is visualized. The right ovary measures 6.3 x 5.5 x 4.9 cm cm. There is a 5.2 x 4.9 x 4.5 cm right ovarian cyst. This was not previously noted. There is no visualized right adnexal mass or complex lesion. There is normal arterial and normal venous vascularity. The left ovary is visualized. The left ovary measures 2.3 x 2.1 x 1.3 cm. There are multiple follicles of the left ovary without a dominant cyst. There is no visualized left adnexal mass or complex lesion. There is normal arterial and normal venous vascularity. There is no fluid in the cul-de-sac. The pre void volume of the bladder was 250 ml. The urinary bladder appears grossly normal. Polycystic ovary disease: No. US/Pelvic (Non ) IMPRESSION: 1. Stable left posterior fundal fibroid. The uterus is otherwise unremarkable. 2. Large right ovarian cyst. SRU Consensus Conference guidelines (Moore, et. al. Radiology 2019;293:359-371) suggest that this follicle or simple cyst is almost certainly benign and no follow-up of this cyst is necessary. Electronically Signed: Pavel Browning DO at 16:50 EST Tel [phone], Service support ,
--- NOTE | 2020-09-17 15:38 | US_ITS ---
STUDY: ULTRASOUND OF THE FEMALE PELVIS - COMPLETE REASON FOR EXAM: Female, 20 years old. Pelvic pain. LMP: 08/07/2020. TECHNIQUE: Transabdominal and Transvaginal TECHNICAL QUALITY: Adequate. COMPARISON: CT of the abdomen and pelvis, 01/31/2015. FINDINGS: The uterus is anteverted and is in a midline position. The uterus measures 6.6 x 3.3 x 1.9 cm. Normal uterine cervix. The endometrium measures 10 mm in thickness, and is hyperechoic. There is no demonstrated endometrial mass. There is slight irregularity of the left posterior fundal wall thought to correlate with the fibroid seen on CT. This is ill-defined and not well visualized on the sagittal view. It is best seen on image 23 series 1-1. I.U.D. - The patient does not have an I.U.D. The right ovary is visualized. The right ovary measures 6.3 x 5.5 x 4.9 cm cm. There is a 5.2 x 4.9 x 4.5 cm right ovarian cyst. This was not previously noted. There is no visualized right adnexal mass or complex lesion. There is normal arterial and normal venous vascularity. The left ovary is visualized. The left ovary measures 2.3 x 2.1 x 1.3 cm. There are multiple follicles of the left ovary without a dominant cyst. There is no visualized left adnexal mass or complex lesion. There is normal arterial and normal venous vascularity. There is no fluid in the cul-de-sac. The pre void volume of the bladder was 250 ml. The urinary bladder appears grossly normal. Polycystic ovary disease: No. US/Transvaginal Non- IMPRESSION: 1. Stable left posterior fundal fibroid. The uterus is otherwise unremarkable. 2. Large right ovarian cyst. SRU Consensus Conference guidelines (Moore, et. al. Radiology 2019;293:359-371) suggest that this follicle or simple cyst is almost certainly benign and no follow-up of this cyst is necessary. Electronically Signed: Pavel Browning DO at 16:50 EST Tel [phone], Service support ,
== END ==
PROVIDERS: PCP Internal Medicine; Referring Provider Nurse Practitioner Women's Health; Visit Provider Nurse Practitioner Women's Health
DX: R10.2 Pelvic and perineal pain (principal)
CPT/HCPCS: 76830; 76856; 93976

== ENCOUNTER 2020-09-18 10:14 | Emergency (ER) | payer MEDICAID, SELFPAY ==
[2020-09-11 15:23] VITALS: BMI 34.0
[2020-09-18 10:15] VITALS: BP 152/84; PULSE 93; RESP 17; TEMP 36.6; O2SAT 99; BMI 28.3
[2020-09-18 10:20] VITALS: BP 152/84; PULSE 93; RESP 16; TEMP 36.6; O2SAT 99
[2020-09-18 10:21] VITALS: BP 152/84
--- NOTE | 2020-09-18 10:42 | CT_ITS ---
STUDY: CT ABDOMEN AND PELVIS WITHOUT CONTRAST REASON FOR EXAM: Female, 20 years old. Pain RADIATION DOSAGE (If Supplied By Facility): CTDIvol = ( 12.83 ) mGy, DLP = ( 628.45 ) mGycm TECHNIQUE: Transaxial images were obtained from the dome of the diaphragm to the symphysis pubis without oral contrast, and without intravenous contrast. Sagittal and coronal images were reconstructed. Individualized dose optimization techniques were used for this CT. COMPARISON: None. FINDINGS: The visualized lung bases are unremarkable. The visualized portions of the heart are within normal limits. Normal liver. Normal gallbladder and extrahepatic biliary system. Normal spleen. Normal pancreas. Normal bilateral adrenal glands. Normal right kidney. Normal left kidney. Normal visualized stomach. Normal small intestine. Normal colon. The appendix is visualized and appears normal. Normal abdominal aorta. Normal inferior vena cava. Normal retroperitoneum. Normal urinary bladder. 4.5 cm corpus luteum cyst of the right ovary. Normal abdominal wall. Normal osseous structures. CT/Abdomen/Pelvis without Cont IMPRESSION: 4.5 cm corpus luteum cyst of the right ovary. Electronically Signed: Pietro Mart MD at 12:06 EST Tel , Service support ,
[2020-09-18 11:03] LABS: Absolute Lymphocyte Count 1.98 X10^3/uL (0.83-4.51); Absolute Neutrophil Count 3.1 X10^3/uL (2.0-7.7); Basophil# 0.03 X10^3/uL; Basophil% 0.5 % (0-1); Eosinophil# 0.08 X10^3/uL; Eosinophils% 1.4 % (0-5); Hematocrit 41.4 % (37-47); Lymphocyte # 1.98 X10^3/ul (4.0); Lymphocyte % 35.6 % (19-41); Mean Corp Hgb Conc 31.4 g/dL (32-36); Mean Corpuscular Hgb 29.3 pg (27.0-32.0); Mean Corpuscular Volume 93.2 fL (81-99); Monocyte# 0.36 X10^3/uL; Monocyte% 6.5 % (0-10); NRBC Flagged by Analyzer 0 % (0-5); Neutrophil # 3.09 X10^3/uL (2.7-7.7); Neutrophil % 55.6 % (47-70); Platelet Count 312 K/mm3 (150-450); RBC Distribution Width CV 13.2 % (11.6-14.6); RBC Distribution Width SD 45.4 fl (35.1-43.9); Red Blood Count 4.44 M/mm3 (4.2-5.4); White Blood Count 5.6 K/mm3 (4.4-11.0)
[2020-09-18 11:08] LABS: ALB/GLOB Ratio 1.1 RATIO (0.9-2.4); AST(SGOT) 13 U/L (15-37); Alanine Aminotransfer ALT/SGPT 22 U/L (13-56); Albumin, Serum 4.3 g/dL (3.2-5.0); Alkaline Phosphatase 77 U/L (45-117); Anion Gap 6 (5-15); BUN 16 mg/dL (7-18); BUN/Creat Ratio 20.4 RATIO (10-20); Calcium,Total 9.4 mg/dL (8.5-10.1); Chloride 103 mmol/L (98-107); Creatinine, Serum 0.78 mg/dL (0.55-1.02); EST Glomerular Filtration Rate 97 mL/min (>60); Est Glom Filt Rate - Afr Amer 118 mL/min (>60); Estimated Creatinine Clearance 93.58 ml/min; Globulin 3.9 g/dL (2.2-4.2); Glucose 95 mg/dL (74-106); Lipase 64 U/L (73-393); Mucous, Urine 0 SEEN /hpf (<or=2+); Potassium 3.4 mmol/L (3.5-5.1); Protein, Total 8.2 g/dL (6.4-8.2); Red Blood Cells-Urine 0 SEEN /hpf (0-5); Sodium Level 138 mmol/L (136-145); White Blood Cells 0 SEEN /hpf (0-5)
[2020-09-18 11:11] LABS: Color, Urine Yellow (Yellow); Glucose, Dipstick Normal (Normal); Ketone-Dipstick Negative (Negative); Leukocyte Esterase-Dipstick Negative /ul (Negative); Nitrite-Dipstick Negative (Negative); Occult Blood-Urine Negative /ul (Negative); Protein-Dipstick Negative (Negative); Urine Bilirubin Dipstick Negative (Negative); Urine Clarity Clear (Clear); Urine Urobilinogen Normal (Normal); Urine pH 6.5 (5.0 - 8.0)
[2020-09-18 11:13] LABS: Internal QC Validated? YES +Cl - CLEAR BKGD; Pregnancy, Serum, hCG Quali. NEGATIVE Negative
[2020-09-18 11:19] LABS: Squamous Epithelial Cells - UA 0-5 SEEN /hpf (5-10)
[2020-09-18 11:20] LABS: Bacteria RARE /hpf (None Seen)
[2020-09-18] MEDS: 0.9% Normal Saline 1,000 ML 1000 ML IV (11:20)
[2020-09-18] MEDS: Ketorolac 30 MG/ML Syringe IV (11:49)
[2020-09-18 11:50] VITALS: BP 152/84; PULSE 93; RESP 16; TEMP 36.6; O2SAT 99
[2020-09-18] MEDS: Ondansetron 4 MG/2 ML Vial IV (11:50)
--- NOTE | 2020-09-18 13:27 | ED.DCSUM_ITS ---
- ER Visit Summary Date of Service: 09/18/20 Chief Complaint: Right lower abdominal/pelvic pain History of Present Illness: The patient is a 20 F who presents with lower abdominal and pelvic pain for the past 2 weeks. Patient describes the pain as throbbing. Patient states the pain radiates into her back. Patient states the pain is worse whenever she urinates. Patient admits to nausea but denies any vomiting. Patient denies any dysuria or hematuria. Patient denies any fevers or chills. Patient states she had a recent ultrasound which showed a 9 cm right ovarian cyst. Previous records were reviewed. The ultrasound showed the right ovarian cyst to be 5 cm. Physical Examination: Vital signs are stable. Patient is afebrile. Patient is in no acute distress. Oral mucosa is pink and moist. Neck is supple. Trachea is midline. There is no JVD. Heart was regular rate and rhythm. Lungs are clear and equal bilaterally. Abdomen is soft. Bowel sounds are normal. There is some right lower quadrant tenderness. There is no rebound or guarding noted. Cranial nerves II through XII are intact. There are no focal motor or sensory deficits. Extremities are intact. There is no calf tenderness or edema. Test Results: CBC and comprehensive metabolic profile were within normal limits. Lipase was normal. Urinalysis does not show any evidence of urinary tract infection. Serum hCG was negative. CT scan of the abdomen pelvis was obtained. There is a 4.5 cm right ovarian cyst. This was interpreted by the radiologist and reviewed by myself. Emergency Department Course and Treatment: Patient was given IV fluids, Toradol, and Zofran. Patient was instructed to follow-up with her primary care physician in 5 to 7 days. Patient was given a prescription for Naprosyn for pain. Patient understood and was agreeable with the plan. All questions were answered. Disposition: Discharge home Impression: 1. Right ovarian cyst This note was generated with [employer] dictation software. It may contain incorrect words, spelling, and punctuation that were not noted in review of the chart prior to signing ED Disposition - Plan for ED Patient: Disposition: Home or Assisted Living Diagnosis: Ovarian cyst Instructions: ED Ovarian Cyst Prescriptions: Naproxen [Naprosyn] 500 mg PO BID PRN #20 tab Transmission Status: Received by [facility]/pharmacy #[id number] Referrals: Mina Vu MD [Primary Care Provider] -
== END 2020-09-18 13:47 | disposition home or self-care (01) ==
PROVIDERS: Emergency Provider Emergency Medicine; PCP Internal Medicine
DX: N83.201 Unspecified ovarian cyst, right side (principal); G40.909 Epilepsy, unspecified, not intractable, without status epilepticus; I10 Essential (primary) hypertension; K21.9 Gastro-esophageal reflux disease without esophagitis; F32.9 Major depressive disorder, single episode, unspecified; Z79.899 Other long term (current) drug therapy
CPT/HCPCS: 74176; 80053; 81001; 83690; 84703; 85025; 96361; 96374; 96375; 99283; J7030; A4216; J2405

== ENCOUNTER → 2020-09-22 12:21 | Outpatient (CLI) | payer MEDICAID, SELFPAY ==
[2020-09-19 13:41] VITALS: BMI 33.6
--- NOTE | 2020-09-22 12:22 | US_ITS ---
STUDY: ULTRASOUND OF THE FEMALE PELVIS - COMPLETE REASON FOR EXAM: Female, 20 years old. Pelvic pain -- STAT read LMP: 09/07/2020. TECHNIQUE: Transabdominal and Transvaginal TECHNICAL QUALITY: Adequate. COMPARISON: Comparison is made with prior study dated 09/17/2020. FINDINGS: The uterus is anteverted and is in a midline position. The uterus measures 6.2 cm x 3.3 cm x 2.5 cm. Normal uterine cervix. The endometrium measures 5 mm in thickness, and is hyperechoic. There is no demonstrated endometrial mass. There is no demonstrated myometrial mass. I.U.D. - The patient does not have an I.U.D. The right ovary is visualized. The right ovary measures 3.7 cm x 4.4 cm x 2.4 cm. There is a 3.3 cm x 3.8 cm x 2.1 cm cyst in the right ovary. This has decreased in size as compared to prior study. There is no visualized right adnexal mass or complex lesion. There is normal arterial and normal venous vascularity. The left ovary is visualized. The left ovary measures 2.1 cm x 1.2 cm x 1.7 cm. There is no left ovarian cyst or ovarian mass. There is no visualized left adnexal mass or complex lesion. There is normal arterial and normal venous vascularity. There is no fluid in the cul-de-sac. The pre void volume of the bladder was 166 ml. US/Transvaginal Non- IMPRESSION: Persistent right ovarian cyst although this has decreased in size as compared to prior study. Electronically Signed: Brendan Adamson MD at 13:36 EST , Service support ,
--- NOTE | 2020-09-22 12:22 | US_ITS ---
STUDY: ULTRASOUND OF THE FEMALE PELVIS - COMPLETE REASON FOR EXAM: Female, 20 years old. Pelvic pain -- STAT read LMP: 09/07/2020. TECHNIQUE: Transabdominal and Transvaginal TECHNICAL QUALITY: Adequate. COMPARISON: Comparison is made with prior study dated 09/17/2020. FINDINGS: The uterus is anteverted and is in a midline position. The uterus measures 6.2 cm x 3.3 cm x 2.5 cm. Normal uterine cervix. The endometrium measures 5 mm in thickness, and is hyperechoic. There is no demonstrated endometrial mass. There is no demonstrated myometrial mass. I.U.D. - The patient does not have an I.U.D. The right ovary is visualized. The right ovary measures 3.7 cm x 4.4 cm x 2.4 cm. There is a 3.3 cm x 3.8 cm x 2.1 cm cyst in the right ovary. This has decreased in size as compared to prior study. There is no visualized right adnexal mass or complex lesion. There is normal arterial and normal venous vascularity. The left ovary is visualized. The left ovary measures 2.1 cm x 1.2 cm x 1.7 cm. There is no left ovarian cyst or ovarian mass. There is no visualized left adnexal mass or complex lesion. There is normal arterial and normal venous vascularity. There is no fluid in the cul-de-sac. The pre void volume of the bladder was 166 ml. US/Pelvic (Non ) IMPRESSION: Persistent right ovarian cyst although this has decreased in size as compared to prior study. Electronically Signed: Brendan Adamson MD at 13:36 EST , Service support ,
== END ==
PROVIDERS: PCP Internal Medicine; Referring Provider Nurse Practitioner Women's Health; Visit Provider Nurse Practitioner Women's Health
DX: R10.2 Pelvic and perineal pain (principal)
CPT/HCPCS: 76830; 76856; 93976

== ENCOUNTER → 2020-10-03 12:38 | Outpatient (CLI) | payer MEDICAID, SELFPAY ==
[2020-09-24 17:05] VITALS: BMI 33.6
--- NOTE | 2020-10-03 12:40 | NM_ITS ---
CLINICAL: 20-year-old female with reported history of right upper quadrant abdominal pain and nausea. RADIONUCLIDE HEPATOBILIARY SCINTIGRAPHY COMPARISON: Abdominal ultrasound report 09/03/2020, CT of the abdomen-pelvis report 09/18/2020 FINDINGS: Following the intravenous administration of 5.6 mCi of 99m Tc Mebrofenin, hepatobiliary images reveal:. 1. Relatively prompt and homogeneous radiopharmaceutical concentration is noted by a normal sized liver. No parenchymal defects are identified. 2. Gallbladder activity is identified at 15 minutes post radiopharmaceutical administration. 3. Small intestinal tract is observed at 30 minutes following tracer injection. 4. Washout of the radiopharmaceutical by the hepatic parenchyma appears qualitatively normal. Cholecystokinin (0.02 ug/kg) was administered intravenously over a 30-minute period. The post CCK gallbladder ejection fraction calculated at 20 minutes following Cholecystokinin administration was noted to be 83.0 % (normal greater than 35%). During 30 minutes of post CCK imaging, there is scintigraphic evidence of refilling of the gallbladder. NM/Hepatobilliary Img w/Pharm Int IMPRESSION: 1. A gallbladder ejection fraction calculated to be greater than 35% following the administration of Cholecystokinin makes the probability of functional hepatobiliary disease (gallbladder dyskinesia) and/or organic hepatobiliary disease (chronic acalculous cholecystitis and/or cystic duct syndrome) to be low. (Kelton Galicia et al, Journal of Nuclear Medicine 32:1695, 1991). 2. An encountered normal gallbladder ejection fraction with refilling of the gallbladder following CCK administration may represent the presence of Sphincter of Oddi dysfunction. Correlation with Sphincter of Oddi manometry may be of benefit. (Allyson and Allyson, J Nucl Med 38:1824, 1997). Electronically Signed: Pietro Deutsch DO at 7:50 EST Tel , Service support ,
== END ==
PROVIDERS: PCP Internal Medicine; Referring Provider Internal Medicine; Visit Provider Internal Medicine
DX: R10.11 Right upper quadrant pain (principal); R11.0 Nausea
CPT/HCPCS: 78227; A9537; J2805

== ENCOUNTER → 2020-11-12 15:13 | Outpatient (CLI) | payer MEDICAID, SELFPAY ==
[2020-11-12 16:46] LABS: hCG Titer Quant., Serum 11156 mIU/mL (1-3)
== END ==
PROVIDERS: PCP Internal Medicine
DX: Z32.01 Encounter for pregnancy test, result positive (principal)
CPT/HCPCS: 36415; 84702; 84703

== ENCOUNTER 2021-05-25 09:48 | Emergency (ER) | payer MEDICAID, SELFPAY ==
[2021-05-25 09:48] VITALS: BP 120/78; PULSE 73; RESP 18; TEMP 35.8; O2SAT 100; BMI 32.6
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
[2021-05-25] MEDS: Ondansetron 4 MG/2 ML Vial IV (10:48)
[2021-05-25] MEDS: 0.9% Normal Saline 1,000 ML 1000 ML IV (10:48)
[2021-05-25 10:49] LABS: Absolute Lymphocyte Count 2.05 X10^3/uL (0.83-4.51); Absolute Neutrophil Count 1.5 X10^3/uL (2.0-7.7); Basophil# 0.03 X10^3/uL; Basophil% 0.7 % (0-1); Eosinophil# 0.09 X10^3/uL; Eosinophils% 2.2 % (0-5); Hematocrit 37.8 % (37-47); Hemoglobin 12.4 g/dL (12.0-15.0); Lymphocyte # 2.05 X10^3/ul (0.83-4.51); Lymphocyte % 49.9 % (19-41); Mean Corp Hgb Conc 32.8 g/dL (32-36); Mean Corpuscular Volume 91.3 fL (81-99); Mean Platelet Vol. 9.9 fl (6.2-12.0); Monocyte# 0.42 X10^3/uL; Monocyte% 10.2 % (0-10); NRBC Flagged by Analyzer 0 % (0-5); Neutrophil # 1.51 X10^3/uL (2.7-7.7); Neutrophil % 36.8 % (47-70); Platelet Count 265 K/mm3 (150-450); RBC Distribution Width CV 13.2 % (11.6-14.6); RBC Distribution Width SD 44.4 fl (35.1-43.9); Red Blood Count 4.14 M/mm3 (4.2-5.4); White Blood Count 4.1 K/mm3 (4.4-11.0)
[2021-05-25 11:03] LABS: AST(SGOT) 15 U/L (15-37); Alanine Aminotransfer ALT/SGPT 19 U/L (13-56); Albumin, Serum 3.7 g/dL (3.2-5.0); Alkaline Phosphatase 63 U/L (45-117); Anion Gap 5 (5-15); BUN 12 mg/dL (7-18); BUN/Creat Ratio 19.6 RATIO (10-20); Calcium,Total 9.1 mg/dL (8.5-10.1); Chloride 106 mmol/L (98-107); Creatinine, Serum 0.61 mg/dL (0.55-1.02); EST Glomerular Filtration Rate 128 mL/min (>60); Est Glom Filt Rate - Afr Amer 155 mL/min (>60); Estimated Creatinine Clearance 118.65 ml/min; Globulin 3.7 g/dL (2.2-4.2); Glucose 105 mg/dL (74-106); Lipase 42 U/L (73-393); Potassium 3.7 mmol/L (3.5-5.1); Protein, Total 7.4 g/dL (6.4-8.2); Sodium Level 139 mmol/L (136-145)
== END 2021-05-25 12:55 | disposition home or self-care (01) ==
PROVIDERS: Emergency Provider Emergency Medicine; PCP Internal Medicine
DX: R10.11 Right upper quadrant pain (principal); R11.10 Vomiting, unspecified; G40.909 Epilepsy, unspecified, not intractable, without status epilepticus; I10 Essential (primary) hypertension; F32.A Depression, unspecified; F41.9 Anxiety disorder, unspecified; E66.9 Obesity, unspecified; F17.290 Nicotine dependence, other tobacco product, uncomplicated; Z79.899 Other long term (current) drug therapy
CPT/HCPCS: 74176; 80053; 83690; 85025; 96361; 96374; 99283; J7030; J2405

== ENCOUNTER 2021-07-06 08:59 | Emergency (ER) | payer MEDICAID, SELFPAY ==
[2021-07-06 08:59] VITALS: BP 137/84; PULSE 107; RESP 22; TEMP 36.6; O2SAT 100; BMI 28.8
--- NOTE | 2021-07-06 10:08 | CT_ITS ---
STUDY: CT BRAIN WITHOUT CONTRAST REASON FOR EXAM: Female, 21 years old. Vertigo RADIATION DOSAGE (If Supplied By Facility): CTDIvol = ( 44.99 ) mGy, DLP = ( 745.49 ) mGycm TECHNIQUE: Transaxial CT imaging of the brain was performed without administration of intravenous contrast material. Individualized dose optimization techniques were used for this CT. COMPARISON: Comparison is made with prior MRI of the brain dated 07/10/2008. FINDINGS: Normal soft tissue structures. Normal calvarium. Normal size ventricles and extra-axial spaces for the patient''s age. Normal white matter tracts of the cerebral hemispheres. Normal basal ganglia and thalami. Normal brainstem. Normal cerebellum. There is no intracranial hemorrhage. There are no findings of an acute ischemic infarction. Normal visualized paranasal sinuses. CT/Brain/Head without Contrast IMPRESSION: Normal unenhanced CT scan of the brain. Electronically Signed: Brendan Adamson MD at 12:13 EST , Service support ,
--- NOTE | 2021-07-06 10:08 | EKG12_ITS ---
Test Reason : DIZZINESS Blood Pressure : / mmHG Vent. Rate : 073 BPM Atrial Rate : 073 BPM P-R Int : 152 ms QRS Dur : 090 ms QT Int : 364 ms P-R-T Axes : 031 045 037 degrees QTc Int : 401 ms Normal sinus rhythm with sinus arrhythmia Low voltage QRS Borderline ECG Confirmed by JAMAR WRIGHT, NURYS ([id number]), editor department JONAS WORKMAN ([id number]) on 07/08/2021 11:28:24 AM Referred By: SYBIL Confirmed By:NURYS ROLDAN MD
--- NOTE | 2021-07-06 10:11 | EDS_ITS ---
HPI History of Present Illness Chief Complaint: Dizziness Informant: patient Onset/Context/Timing Onset: Yesterday Current Severity: Moderate Maximum Severity: Moderate Narrative Narrative: Patient presents secondary to vertigo symptoms. She states she woke yesterday morning feeling that everything was spinning. Symptoms went away after couple hours. Yesterday afternoon and evening she was fine. When she got up this morning she again felt like everything was spinning and symptoms have not abated. She feels nauseated. She denies any recent head injury. She does have history of seizures but states has never had anything like this previously. [facility] Medical History Abdominal pain Anxiety Back problem Depression Epilepsy Flu vaccine need Headache HTN (hypertension) Home Medications albuterol sulfate 90 mcg/actuation aerosol inhaler 2 puff INHALATION Q6H PRN #8.5 g 06/02/20 [Rx Last Taken Unknown] sertraline 50 mg tablet 50 mg PO DAILY #90 tab 04/30/21 [Rx Last Taken Unknown] omeprazole 40 mg capsule,delayed release 40 mg PO DAILY #30 cap 05/22/21 [Rx Last Taken Unknown] ondansetron 4 mg PO Q8H PRN #10 tab 05/25/21 [Rx Last Taken Unknown] labetalol 100 mg tablet 50 mg PO BID #60 tab 06/25/21 [Rx Last Taken Unknown] diazepam [Valium] 2 mg PO BID PRN #10 tab 07/06/21 [Rx Last Taken Unknown] ondansetron HCl [Zofran] 4 mg PO Q8H PRN #14 tab 07/06/21 [Rx Last Taken Unknown] Allergy/AdvReac Type Severity Reaction Status Date / Time Iodinated Contrast Media Allergy Intermediate HIVES, Verified 07/06/21 08:59 SHORT OF BREATH acetaminophen [From Tylenol] Allergy Mild unknown Verified 07/06/21 08:59 codeine phosphate Allergy Hives Verified 07/06/21 08:59 [From Tylenol-Codeine #3] morphine Allergy Itching Verified 07/06/21 08:59 oxycodone HCl [From Percocet] Allergy Hives Verified 07/06/21 08:59 red dye Allergy Hives Verified 07/06/21 08:59 Family History Mother Endometriosis Depression with anxiety Grandfather Diabetes Aunt Diabetes Grandfather Cancer unknown [place], passed of Unknown Hypertension High cholesterol Father Depression with anxiety Bipolar 1 disorder Surgical History H/O laparoscopy Social History Smoking Status: Current every day smoker tobacco type: cigarettes Electronic Cigarette Use: with nicotine alcohol intake: never substance use type: does not use caffeine: Yes what type of physical activity do you participate in: none seatbelt use: always do you feel safe at home: Yes 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 ED Constitutional Constitutional ED: Denies chills or fever(s) Eyes Eyes: Denies change in vision ENT ENT ED: Denies sore throat Cardiovascular Cardiovascular: Denies chest pain, palpitations or racing heartbeat Respiratory/Chest Respiratory/Chest: Reports dyspnea; Denies cough Gastrointestinal Gastrointestinal: Reports nausea; Denies abdominal pain, diarrhea or vomiting Genitourinary Genitourinary ED: Denies dysuria Musculoskeletal Musculoskeletal: Denies back pain Integumentary Denies rash Neurologic Neurologic: Denies headache(s) or weakness Allergic/Immunologic Allergic/Immunologic ED: Denies urticaria EXAM Physical Exam Const Vital Signs: 07/06/21 08:59 07/06/21 10:04 07/06/21 12:03 Temperature 98 F Temperature Source Temporal Pulse Rate 107 H 75 Respiratory Rate 22 H 19 H Respiratory Effort Normal Non-Labored Respiratory Pattern Normal Blood Pressure 137/84 H Blood Pressure Mean 101 Pulse Ox 100 Oxygen Delivery Method Room Air Positive well nourished and well developed General Appearance ED: well developed HEENT Reports moist mucous membranes Eyes PERRL and EOMs intact bilaterally Neck supple Chest Wall inspection of chest normal Resp normal respiratory effort and clear to auscultation bilaterally Cardio regular rate and regular rhythm GI non-tender Palpation: soft Extremity normal to inspection General Extremety ED: Yes tenderness Neuro oriented x3 Neuro Narrative: No focal neurologic deficits Sensorium / Orientation: alert Psych mental status grossly normal Skin no rashes or lesions noted MDM MDM MDM Narrative Medical decision making narrative: Patient had lab work and CT scan obtained. test ordered. Patient given IV fluids along with Zofran and Ativan. She has a red dye allergy cannot take Antivert. Lab Data Attestation: I reviewed the patient's lab results. Labs: Laboratory Results - last 24 hr 07/06/21 07/06/21 07/06/21 08:15 08:15 10:50 WBC 5.5 RBC 4.70 Hgb 14.3 Hct 42.9 MCV 91.3 MCH 30.4 MCHC 33.3 RDW Std Deviation 42.7 RDW Coeff of Danis 12.9 Plt Count 287 MPV 11.2 Immature Gran % (Auto) 0.200 Neut % (Auto) 51.9 Lymph % (Auto) 40.0 [place] % (Auto) 5.6 Eos % (Auto) 1.8 Baso % (Auto) 0.5 Absolute Neuts (auto) 2.9 Absolute Lymphs (auto) 2.20 Nucleated RBC % 0 Sodium Cancelled Potassium Cancelled Chloride Cancelled Carbon Dioxide Cancelled Anion Gap Cancelled BUN Cancelled Creatinine Cancelled Estim Creat Clear Calc Cancelled Est GFR (MDRD) Af Amer Cancelled Est GFR (MDRD) Non-Af Cancelled BUN/Creatinine Ratio Cancelled Glucose Cancelled Calcium Cancelled Serum , Qual NEGATIVE 07/06/21 10:50 WBC RBC Hgb Hct MCV MCH MCHC RDW Std Deviation RDW Coeff of Danis Plt Count MPV Immature Gran % (Auto) Neut % (Auto) Lymph % (Auto) [place] % (Auto) Eos % (Auto) Baso % (Auto) Absolute Neuts (auto) Absolute Lymphs (auto) Nucleated RBC % Sodium 141 Potassium 3.7 Chloride 109 H Carbon Dioxide 27.0 Anion Gap 5 BUN 9 Creatinine 0.61 Estim Creat Clear Calc 118.65 Est GFR (MDRD) Af Amer 155 Est GFR (MDRD) Non-Af 128 BUN/Creatinine Ratio 14.7 Glucose 94 Calcium 8.8 Serum , Qual Radiography Diagnostic Testing: Clinical Impression(s) from Imaging Studies Brain CT 07/06/21 10:08 IMPRESSION: Normal unenhanced CT scan of the brain. Electronically Signed: Brendan Adamson MD at 12:13 EST , Service support , Treatment and Re-Evaluation Comments:: On repeat evaluation patient does feel improved. She was able to ambulate in the roman to the restroom and back without difficulty. I do believe she has peripheral vertigo. Work-up here is all unremarkable. Patient be given prescription for Valium and Zofran. Return instructions provided. Discharge Plan Triage Chief Complaint: Dizziness ED Provider: Génesis Mueller Dx/Rx/DC Orders Clinical Impression: Vertigo Instructions: ED BPV Vertigo Prescriptions: New ondansetron HCl [Zofran] 4 mg tablet 4 mg PO Q8H PRN (Reason: nausea and vomiting) Qty: 14 RF: 0 diazepam [Valium] 2 mg tablet 2 mg PO BID PRN (Reason: vertigo) Qty: 10 RF: 0 No Action ondansetron 4 mg tablet,disintegrating 4 mg PO Q8H PRN (Reason: nausea and vomiting) Qty: 10 RF: 0 albuterol sulfate 90 mcg/actuation HFA aerosol inhaler 2 puff INHALATION Q6H PRN (Reason: shortness of breath or wheezing) Qty: 8.5 RF: 1 sertraline 50 mg tablet 50 mg PO DAILY Qty: 90 RF: 1 omeprazole 40 mg capsule,delayed release(DR/EC) 40 mg PO DAILY Qty: 30 RF: 2 labetalol 100 mg tablet 50 mg PO BID Qty: 60 RF: 1 Primary Care Provider: Mina Vu Referrals: Mina Vu MD [Primary Care Provider] - As Needed Disposition Disposition: Home, Self Care
[2021-07-06] MEDS: 0.9% Normal Saline 1,000 ML 1000 ML IV (10:21)
[2021-07-06] MEDS: Ondansetron 4 MG/2 ML Vial IV (10:22)
[2021-07-06] MEDS: LORazepam 2 MG/ML Syringe 0.5 MG IV (10:22)
[2021-07-06 10:31] LABS: Absolute Neutrophil Count 2.9 X10^3/uL (2.0-7.7); Basophil# 0.03 X10^3/uL; Basophil% 0.5 % (0-1); Eosinophils% 1.8 % (0-5); Hematocrit 42.9 % (37-47); Hemoglobin 14.3 g/dL (12.0-15.0); Mean Corp Hgb Conc 33.3 g/dL (32-36); Mean Corpuscular Hgb 30.4 pg (27.0-32.0); Mean Corpuscular Volume 91.3 fL (81-99); Mean Platelet Vol. 11.2 fl (6.2-12.0); Monocyte# 0.31 X10^3/uL; Monocyte% 5.6 % (0-10); NRBC Flagged by Analyzer 0 % (0-5); Neutrophil # 2.85 X10^3/uL (2.7-7.7); Neutrophil % 51.9 % (47-70); Platelet Count 287 K/mm3 (150-450); RBC Distribution Width CV 12.9 % (11.6-14.6); RBC Distribution Width SD 42.7 fl (35.1-43.9); White Blood Count 5.5 K/mm3 (4.4-11.0)
[2021-07-06 11:27] LABS: Internal QC Validated? YES +Cl - CLEAR BKGD; Pregnancy, Serum, hCG Quali. NEGATIVE Negative
[2021-07-06 11:34] LABS: Anion Gap 5 (5-15); BUN 9 mg/dL (7-18); BUN/Creat Ratio 14.7 RATIO (10-20); Calcium,Total 8.8 mg/dL (8.5-10.1); Chloride 109 mmol/L (98-107); Creatinine, Serum 0.61 mg/dL (0.55-1.02); EST Glomerular Filtration Rate 128 mL/min (>60); Est Glom Filt Rate - Afr Amer 155 mL/min (>60); Estimated Creatinine Clearance 118.65 ml/min; Glucose 94 mg/dL (74-106); Potassium 3.7 mmol/L (3.5-5.1); Sodium Level 141 mmol/L (136-145)
[2021-07-06 12:03] VITALS: PULSE 75; RESP 19
[2021-07-06 12:26] VITALS: BP 111/62; PULSE 57; RESP 14
== END 2021-07-06 12:42 | disposition home or self-care (01) ==
PROVIDERS: Emergency Provider Emergency Medicine; PCP Internal Medicine
DX: R42 Dizziness and giddiness (principal); G40.909 Epilepsy, unspecified, not intractable, without status epilepticus; I10 Essential (primary) hypertension; F32.A Depression, unspecified; F41.9 Anxiety disorder, unspecified; F17.210 Nicotine dependence, cigarettes, uncomplicated; Z79.899 Other long term (current) drug therapy
CPT/HCPCS: 70450; 80048; 84703; 85025; 93005; 96361; 96374; 96375; 99285; J7030; A4216; J2405

== ENCOUNTER 2021-11-02 15:16 | Outpatient (CLI) | payer MEDICAID, SELFPAY ==
--- NOTE | 2021-11-02 15:30 | RAD_ITS ---
STUDY: X-RAY - LUMBAR SPINE REASON FOR EXAM: Female, 21 years old. Low back pain. TECHNIQUE: 3 view(s) of the lumbar spine were obtained. COMPARISON: 09/28/2019. FINDINGS: Normal lumbar lordosis. Mild, likely positional, dextroscoliosis, unchanged. There is a normal alignment of the vertebrae. Normal vertebral bodies and endplates. Minimal intervertebral disc space narrowing at L5-S1. The soft tissue structures are unremarkable. RAD/Lumbar Spine 2 or 3 Views IMPRESSION: Stable mild dextroscoliosis with intervertebral disc space narrowing at L5-S1. No acute finding or evidence of erosive changes/fusion. Electronically Signed: Hiram Kelsey MD at 10:36 EDT ,
== END 2021-11-02 23:59 | disposition home or self-care (01) ==
PROVIDERS: PCP Internal Medicine; Referring Provider Physician Assistant; Visit Provider Physician Assistant
DX: M54.10 Radiculopathy, site unspecified (principal)
CPT/HCPCS: 72100

== ENCOUNTER → 2022-02-01 | Outpatient (CLI) | payer MEDICAID, SELFPAY ==
[2022-02-01 15:34] LABS: Mucous, Urine 0 SEEN /hpf (<or=2+); Red Blood Cells-Urine 0 SEEN /hpf (0-5); White Blood Cells 0 SEEN /hpf (0-5)
[2022-02-01 16:42] LABS: Absolute Lymphocyte Count 2.69 X10^3/uL (0.83-4.51); Absolute Neutrophil Count 4.3 X10^3/uL (2.0-7.7); Basophil# 0.03 X10^3/uL; Basophil% 0.4 % (0-1); Eosinophil# 0.12 X10^3/uL; Eosinophils% 1.6 % (0-5); Hematocrit 39.8 % (37-47); Lymphocyte # 2.69 X10^3/ul (0.83-4.51); Lymphocyte % 34.8 % (19-41); Mean Corp Hgb Conc 32.7 g/dL (32-36); Mean Corpuscular Volume 91.7 fL (81-99); Mean Platelet Vol. 10.1 fl (6.2-12.0); Monocyte# 0.57 X10^3/uL; Monocyte% 7.4 % (0-10); NRBC Flagged by Analyzer 0 % (0-5); Neutrophil # 4.28 X10^3/uL (2.7-7.7); Neutrophil % 55.4 % (47-70); Platelet Count 274 K/mm3 (150-450); RBC Distribution Width CV 13.1 % (11.6-14.6); RBC Distribution Width SD 44.1 fl (35.1-43.9); Red Blood Count 4.34 M/mm3 (4.2-5.4); White Blood Count 7.7 K/mm3 (4.4-11.0)
[2022-02-01 16:43] LABS: Color, Urine Yellow (Yellow); Glucose, Dipstick Normal (Normal); Ketone-Dipstick Negative (Negative); Leukocyte Esterase-Dipstick Negative /ul (Negative); Nitrite-Dipstick Negative (Negative); Occult Blood-Urine Negative /ul (Negative); Protein-Dipstick Negative (Negative); Urine Bilirubin Dipstick Negative (Negative); Urine Clarity Clear (Clear); Urine Urobilinogen Normal (Normal)
[2022-02-01 16:46] LABS: Internal QC Validated? YES +Cl - CLEAR BKGD; Pregnancy, Serum, hCG Quali. NEGATIVE Negative
[2022-02-01 16:54] LABS: ALB/GLOB Ratio 1.1 RATIO (0.9-2.4); AST(SGOT) 15 U/L (15-37); Alanine Aminotransfer ALT/SGPT 22 U/L (13-56); Albumin, Serum 3.8 g/dL (3.2-5.0); Alkaline Phosphatase 63 U/L (45-117); Anion Gap 8 (5-15); BUN 10 mg/dL (7-18); BUN/Creat Ratio 14.8 RATIO (10-20); Calcium,Total 9.2 mg/dL (8.5-10.1); Chloride 104 mmol/L (98-107); Creatinine, Serum 0.68 mg/dL (0.55-1.02); EST Glomerular Filtration Rate 114 mL/min (>60); Est Glom Filt Rate - Afr Amer 138 mL/min (>60); Globulin 3.6 g/dL (2.2-4.2); Glucose 89 mg/dL (74-106); Potassium 3.8 mmol/L (3.5-5.1); Protein, Total 7.4 g/dL (6.4-8.2); Sodium Level 140 mmol/L (136-145)
[2022-02-01 17:09] LABS: Bacteria 1+ /hpf (None Seen); Squamous Epithelial Cells - UA 0-5 SEEN /hpf (5-10)
== END | disposition home or self-care (01) ==
LOC: BIMLAB 15:21
PROVIDERS: PCP Internal Medicine; Referring Provider Internal Medicine; Visit Provider Internal Medicine
DX: R10.9 Unspecified abdominal pain (principal); R11.2 Nausea with vomiting, unspecified; N92.6 Irregular menstruation, unspecified
CPT/HCPCS: 36415; 80053; 81001; 84703; 85025; 87086; 87088

== ENCOUNTER 2022-04-27 14:53 | Emergency (ER) | payer MEDICAID, SELFPAY ==
[2022-04-27 14:54] VITALS: BP 111/81; PULSE 74; RESP 16; TEMP 36.3; O2SAT 100; BMI 30.7
--- NOTE | 2022-04-27 15:40 | MRI_ITS ---
STUDY: MRI LUMBAR SPINE WITHOUT CONTRAST REASON FOR EXAM: Female, 22 years old. back pain, cauda equina TECHNIQUE: Standardized fat and water weighted pulse sequences were obtained in the sagittal and axial planes. COMPARISON: None FINDINGS: T12-L1: Normal endplates. Normal disc height, hydration and morphology. Normal bilateral facet joints. Normal central canal and bilateral lateral recesses. Normal bilateral intervertebral neural foramina. Normal lumbar lordosis. There is no substantial scoliosis. Normal conus medullaris that terminates at the L1-2: Normal endplates. Normal disc height, hydration and morphology. Normal bilateral facet joints. Normal central canal and bilateral lateral recesses. Normal bilateral intervertebral neural foramina. L2-3: Normal endplates. Normal disc height, hydration and morphology. Normal bilateral facet joints. Normal central canal and bilateral lateral recesses. Normal bilateral intervertebral neural foramina. L3-4: Normal endplates. Normal disc height, hydration and morphology. Normal bilateral facet joints. Normal central canal and bilateral lateral recesses. Normal bilateral intervertebral neural foramina. L4-5: Normal endplates. Narrowed disc space with desiccation of the disc and mild annular bulge with small broad-based central disc protrusion.. Mild facet arthropathy and thickening of ligamenta flava. Mild narrowing of central canal. Normal bilateral lateral recesses. Normal bilateral intervertebral neural foramina. L5-S1: Normal endplates. Normal disc height, desiccation and moderate sized broad-based right paracentral/posterolateral disc protrusion displacing the descending right S1 nerve root.. Normal bilateral facet joints. Normal central canal and bilateral lateral recesses. Moderate right neuroforaminal stenosis Normal visualized sacral ala. Incidental finding of multiple small right ovarian cyst Normal visualized paraspinous soft tissue structures. MRI/Spine Lumbar (Routine) IMPRESSION: No evidence for acute fracture or other significant bony pathology.. Spinal stenosis at L4-5 secondary to small central disc protrusion and minor annular bulge. Moderate-sized broad-based right paracentral/posterolateral disc protrusion L5-S1 displacing the descending right S1 nerve root and narrowing of the right nerve root foramen Electronically Signed: Dickson Braxton MD at 21:18 EDT ,
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
[2022-04-27 16:07] LABS: Absolute Lymphocyte Count 2.56 X10^3/uL (0.83-4.51); Absolute Neutrophil Count 5.3 X10^3/uL (2.0-7.7); Basophil# 0.02 X10^3/uL; Basophil% 0.2 % (0-1); Eosinophil# 0.14 X10^3/uL; Eosinophils% 1.6 % (0-5); Hematocrit 43.7 % (37-47); Lymphocyte # 2.56 X10^3/ul (0.83-4.51); Lymphocyte % 29.9 % (19-41); Mean Corpuscular Hgb 29.8 pg (27.0-32.0); Mean Platelet Vol. 9.8 fl (6.2-12.0); Monocyte# 0.46 X10^3/uL; Monocyte% 5.4 % (0-10); NRBC Flagged by Analyzer 0 % (0-5); Neutrophil # 5.33 X10^3/uL (2.7-7.7); Neutrophil % 62.4 % (47-70); Platelet Count 269 K/mm3 (150-450); RBC Distribution Width CV 13.7 % (11.6-14.6); RBC Distribution Width SD 47.6 fl (35.1-43.9); White Blood Count 8.6 K/mm3 (4.4-11.0)
[2022-04-27 16:22] LABS: Anion Gap 5 (5-15); BUN 16 mg/dL (7-18); BUN/Creat Ratio 25.1 RATIO (10-20); Calcium,Total 10.2 mg/dL (8.5-10.1); Chloride 104 mmol/L (98-107); Creatinine, Serum 0.64 mg/dL (0.55-1.02); EST Glomerular Filtration Rate 122 mL/min (>60); Est Glom Filt Rate - Afr Amer 147 mL/min (>60); Estimated Creatinine Clearance 112.12 ml/min; Glucose 101 mg/dL (74-106); Potassium 3.8 mmol/L (3.5-5.1); Sodium Level 138 mmol/L (136-145)
[2022-04-27] MEDS: HYDROmorphone 1 MG/ML Syringe 0.5 MG IV (16:26)
[2022-04-27] MEDS: Ondansetron 4 MG/2 ML Vial IV (16:26)
[2022-04-27 16:34] VITALS: BP 127/73; PULSE 75; RESP 16; O2SAT 100
[2022-04-27 16:45] LABS: Color, Urine Straw (Yellow); Glucose, Dipstick Normal (Normal); Ketone-Dipstick Negative (Negative); Leukocyte Esterase-Dipstick Negative /ul (Negative); Nitrite-Dipstick Negative (Negative); Occult Blood-Urine Negative /ul (Negative); Protein-Dipstick Negative (Negative); Specific Gravity, Urine 1.025 (1.002-1.030); Urine Bilirubin Dipstick Negative (Negative); Urine Clarity Sl. Cloudy (Clear); Urine Urobilinogen Normal (Normal)
[2022-04-27 16:47] LABS: Internal QC Validated? YES +Cl - CLEAR BKGD; Pregnancy, Serum, hCG Quali. NEGATIVE Negative
[2022-04-27 17:13] LABS: Red Blood Cells-Urine 0-5 SEEN /hpf (0-5); Squamous Epithelial Cells - UA 10-25 SEEN /hpf (5-10); White Blood Cells 0-5 SEEN /hpf (0-5)
[2022-04-27 17:14] LABS: Bacteria 4+ /hpf (None Seen); Mucous, Urine 0 SEEN /hpf (<or=2+)
[2022-04-27] MEDS: DiphenhydrAMINE 50 MG/ML Syringe 25 MG IV (17:14)
--- NOTE | 2022-04-27 17:20 | NURSING ---
pt called out after dilaudid given and c/o itching all over no hives present but pt red all across upper back and pt scratching. dr. joyce aware and iv benadryl given
[2022-04-27 21:46] VITALS: BP 109/6; BP 109/66; PULSE 73; PULSE 81; RESP 16; TEMP 36.7; O2SAT 98; O2SAT 99
[2022-04-27] MEDS: traMADol 50 MG Tablet PO (21:54)
[2022-04-27] MEDS: predniSONE 20 MG Tablet 40 MG PO (21:54)
== END 2022-04-27 21:59 | disposition home or self-care (01) ==
PROVIDERS: Emergency Provider Emergency Medicine; PCP Internal Medicine; Visit Provider Emergency Medicine
DX: M54.16 Radiculopathy, lumbar region (principal); G89.29 Other chronic pain; I10 Essential (primary) hypertension; Z79.899 Other long term (current) drug therapy; Z87.891 Personal history of nicotine dependence
CPT/HCPCS: 72148; 80048; 81001; 84703; 85025; 96374; 96375; 99283; A4216; J2405

== ENCOUNTER → 2022-05-26 | Outpatient (CLI) | payer MEDICAID, SELFPAY ==
--- NOTE | 2022-05-26 11:49 | US_ITS ---
STUDY: ULTRASOUND OF THE FEMALE PELVIS - COMPLETE REASON FOR EXAM: Female, 22 years old. IRREGULAR MENSES LMP: 05/04/2022. TECHNIQUE: Transabdominal and Transvaginal TECHNICAL QUALITY: Adequate. COMPARISON: Comparison is made with prior study 09/22/2020. FINDINGS: The uterus is anteverted and is in a midline position. The uterus measures 6.3 cm x 4 cm x 2.4 cm. Normal uterine cervix. The endometrium measures 3.1 mm in thickness, and is hyperechoic. There is no demonstrated endometrial mass. There is no demonstrated myometrial mass. I.U.D. - The patient does not have an I.U.D. The right ovary is visualized. The right ovary measures 2.4 cm x 2.4 cm x 2.7 cm. There is a 1.5 cm x 1 cm x 1 cm septated right ovarian cyst. There is no visualized right adnexal mass or complex lesion. There is normal arterial and normal venous vascularity. The left ovary is visualized. The left ovary measures 2 cm x 1.9 cm x 2.1 cm. There is a 1.5 cm x 1.1 cm x 1 cm dominant follicle in the ovary. There is no visualized left adnexal mass or complex lesion. There is normal arterial and normal venous vascularity. There is no fluid in the cul-de-sac. The pre void volume of the bladder was 423 ml. US/Pelvic (Non ) IMPRESSION: Follicles are seen in both ovaries. Electronically Signed: Brendan Adamson MD at 14:56 EDT ,
== END | disposition home or self-care (01) ==
LOC: OPUS 11:47
PROVIDERS: PCP Internal Medicine; Visit Provider Nurse Practitioner Women's Health
DX: N92.6 Irregular menstruation, unspecified (principal)
CPT/HCPCS: 76830; 76856

== ENCOUNTER → 2022-05-31 | Outpatient (CLI) | payer MEDICAID, SELFPAY ==
[2022-05-31 14:54] LABS: Thyroid Stim Hormone (TSH) 3.81 uIU/mL (0.358-3.74)
[2022-06-02 22:07] LABS: Chlamydia By Nucleic Acid AMP Negative (Negative)
[2022-06-04 14:37] LABS: Gonococcus By Nucleic Acid AMP Negative (Negative)
[2022-06-07 17:36] LABS: HPV Reflexed? NOT INDICATED
== END | disposition home or self-care (01) ==
PROVIDERS: PCP Internal Medicine; Referring Provider Nurse Practitioner Women's Health; Visit Provider Nurse Practitioner Women's Health
DX: Z12.4 Encounter for screening for malignant neoplasm of cervix (principal); Z11.3 Encounter for screening for infections with a predominantly sexual mode of transmission; N92.6 Irregular menstruation, unspecified
CPT/HCPCS: 36415; 84443; 87491; 87591; 88175; G0145

== ENCOUNTER → 2022-06-07 | Outpatient (CLI) | payer MEDICAID, SELFPAY ==
[2022-06-07 12:47] LABS: Cholesterol 175 mg/dL (200); Free T3 2.3 pg/mL (2.18-3.98); High Density Lipoprotein 73 mg/dL; Thyroid Stim Hormone (TSH) 2.65 uIU/mL (0.358-3.74); Triglycerides 61 mg/dL; Very Low Density Lipoprotein 12 mg/dL (5-40)
== END | disposition home or self-care (01) ==
LOC: BIMLAB 09:41
PROVIDERS: PCP Internal Medicine; Referring Provider Physician Assistant; Visit Provider Physician Assistant
DX: R79.89 Other specified abnormal findings of blood chemistry (principal); Z13.220 Encounter for screening for lipoid disorders
CPT/HCPCS: 36415; 80061; 84439; 84443; 84481

== ENCOUNTER → 2022-08-05 | Outpatient (CLI) | payer MEDICAID, SELFPAY ==
[2022-08-05 12:19] LABS: Absolute Lymphocyte Count 2.27 X10^3/uL (0.83-4.51); Absolute Neutrophil Count 2.4 X10^3/uL (2.0-7.7); Basophil# 0.02 X10^3/uL; Basophil% 0.4 % (0-1); Eosinophils% 1.9 % (0-5); Hematocrit 41.7 % (37-47); Hemoglobin 13.3 g/dL (12.0-15.0); Lymphocyte # 2.27 X10^3/ul (0.83-4.51); Lymphocyte % 44.1 % (19-41); Mean Corp Hgb Conc 31.9 g/dL (32-36); Mean Corpuscular Volume 93.9 fL (81-99); Mean Platelet Vol. 10.4 fl (6.2-12.0); Monocyte# 0.39 X10^3/uL; Monocyte% 7.6 % (0-10); NRBC Flagged by Analyzer 0 % (0-5); Neutrophil # 2.36 X10^3/uL (2.7-7.7); Neutrophil % 45.8 % (47-70); Platelet Count 298 K/mm3 (150-450); RBC Distribution Width CV 13.2 % (11.6-14.6); RBC Distribution Width SD 45.2 fl (35.1-43.9); Red Blood Count 4.44 M/mm3 (4.2-5.4); White Blood Count 5.2 K/mm3 (4.4-11.0)
[2022-08-05 12:28] LABS: ALB/GLOB Ratio 1.1 RATIO (0.9-2.4); AST(SGOT) 10 U/L (15-37); Alanine Aminotransfer ALT/SGPT 21 U/L (13-56); Albumin, Serum 4.1 g/dL (3.2-5.0); Alkaline Phosphatase 62 U/L (45-117); Anion Gap 6 (5-15); BUN 14 mg/dL (7-18); BUN/Creat Ratio 19.3 RATIO (10-20); Calcium,Total 9.3 mg/dL (8.5-10.1); Chloride 102 mmol/L (98-107); Creatinine, Serum 0.73 mg/dL (0.55-1.02); EST Glomerular Filtration Rate 104 mL/min (>60); Est Glom Filt Rate - Afr Amer 126 mL/min (>60); Globulin 3.8 g/dL (2.2-4.2); Glucose 89 mg/dL (74-106); Potassium 3.9 mmol/L (3.5-5.1); Protein, Total 7.9 g/dL (6.4-8.2); Sodium Level 137 mmol/L (136-145)
== END | disposition home or self-care (01) ==
LOC: BIMLAB 09:22
PROVIDERS: PCP Internal Medicine; Referring Provider Physician Assistant; Visit Provider Physician Assistant
DX: Z01.818 Encounter for other preprocedural examination (principal); I10 Essential (primary) hypertension
CPT/HCPCS: 36415; 80053; 85025

== ENCOUNTER → 2022-08-09 | Outpatient (CLI) | payer MEDICAID, SELFPAY ==
--- NOTE | 2022-08-09 08:50 | EKG12_ITS ---
Test Reason : PRE OP Blood Pressure : / mmHG Vent. Rate : 072 BPM Atrial Rate : 072 BPM P-R Int : 148 ms QRS Dur : 088 ms QT Int : 360 ms P-R-T Axes : 029 048 042 degrees QTc Int : 394 ms Normal sinus rhythm Low voltage QRS Borderline ECG Confirmed by BARBARA WRIGHT, CRYS ([id number]), science editor JONAS WORKMAN ([id number]) on 08/10/2022 9:36:02 AM Referred By: MAGDALENA Confirmed By:CRYS JIMENEZ MD
== END | disposition home or self-care (01) ==
LOC: PSN 08:49
PROVIDERS: PCP Internal Medicine; Visit Provider Physician Assistant
DX: Z01.818 Encounter for other preprocedural examination (principal); I10 Essential (primary) hypertension
CPT/HCPCS: 93005

== ENCOUNTER 2022-08-11 11:28 | Emergency (ER) | payer MEDICAID, SELFPAY ==
[2022-08-11 11:29] VITALS: BP 116/76; PULSE 80; RESP 16; TEMP 36.4; O2SAT 98; BMI 30.1
--- NOTE | 2022-08-11 13:00 | MRI_ITS ---
STUDY: MRI BRAIN WITH AND WITHOUT CONTRAST REASON FOR EXAM: Female, 22 years old. Papilledema TECHNIQUE: Standardized multiplanar fat and water weighted pulse sequences were obtained. IV Yes YES was administered for the contrast portion of the examination. COMPARISON: MRI of the brain dated June 10, 2018. Head CT dated July 06, 2021 FINDINGS: Normal size of the ventricles and extra-axial spaces for the patient''s age. Normal white matter tracts of the supratentorial brain. There is no evidence for recent intracranial ischemia or other cause of cytotoxic edema on diffusion weighted imaging (DWI). There are no demyelinating plagues of the supratentorial brain, brainstem or cerebellum. There are no findings suspicious for multiple sclerosis (MS). Normal bilateral frontal poles, and orbital frontal and gyrus recti of the frontal lobes. Normal bilateral temporal tips of the temporal lobes. There are no white matter shear injuries (diffuse axonal injuries). There are no parenchymal hemorrhages or hematomas. There are no findings to suggest prior closed head parenchymal injury of the brain. Mild left optic neuritis/fluid distention of the optic nerve sheath is seen at the optic nerve/retinal cup junction, see image 1024 series 5. There is no demonstrated MR evidence of papilledema on the right. No intraconal masses or inflammatory processes are seen in either orbit. The bilateral eye globes are normal. There is no demonstrated MR evidence of optic neuritis on the right. No intraconal masses or inflammatory processes are seen in either orbit. The bilateral eye globes are normal. No focal or suspicious enhancement of the bilateral orbital structures or optic nerve complexes is demonstrated on this exam. Normal bilateral basal ganglia. Normal thalami. There is no extra-axial fluid accumulation. There are no brain parenchymal lesions or abnormal enhancement of the brain parenchyma. There is no demonstrated abnormal thickening or enhancement of meninges or dura. Normal flow voids within the major intracranial circulation suggesting patency by spin echo criteria. Normal venous enhancement. There is no enhancing intra-axial or extra-axial abnormality. Normal sella turcica, pituitary gland, infundibular stalk, optic chiasm and hypothalamus. Normal tectal plate and pineal gland. Normal midbrain, sammy and medulla. Normal cerebellum. Normal basal cisterns. Normal bilateral temporal bones. Normal bilateral internal auditory canals. No demonstrated orbital abnormality, within the constraints of a routine brain study. Normal visualized paranasal sinuses. Normal calvarium and skull base. Normal visualized soft tissue structures. Normal visualized upper cervical spine. MRI/Brain W/WO Contrast IMPRESSION: Mild left optic neuritis 1. There are no visualized masses of the optic chiasm or surrounding regions or of the optic nerve complexes. 2. Mild left optic neuritis/fluid distention of the optic nerve sheath is seen at the optic nerve/retinal cup junction, see image 05/17 series 5. 3. There is no demonstrated MR evidence of optic neuritis on the right. No intraconal masses or inflammatory processes are seen in either orbit. The bilateral eye globes are normal. No focal or suspicious enhancement of the bilateral orbital structures or optic nerve complexes is demonstrated on this exam. 4. Normal unenhanced and enhanced MRI of the brain. Electronically Signed: Joseluis Andrews MD at 15:57 EST ,
--- NOTE | 2022-08-11 13:00 | MRI_ITS ---
STUDY: EXAMINATION - MRV BRAIN WITHOUT CONTRAST REASON FOR EXAM: Female, 22 years old. Papilledema TECHNIQUE: 3D [id number] (TOF) imaging was performed in a kateryna MRI scanner. COMPARISON: MRI of the brain dated August 11, 2022. FINDINGS: Normal flow within the superior sagittal sinus. Normal flow within the superficial cortical veins. Normal flow within the paired internal cerebral veins, vein of Aakash and straight sinus. There is preferential flow within the right transverse and sigmoid sinuses, however there is demonstrated flow within the left transverse and sigmoid sinus. Normal flow within the bilateral jugular bulbs. There is no demonstrated evidence of intracranial venous thrombosis. MRI/MRV Head Without Contrast IMPRESSION: Normal unenhanced MRV of the brain. Electronically Signed: Joseluis Andrews MD at 15:59 EST ,
[2022-08-11] MEDS: DiphenhydrAMINE 50 MG/ML Syringe 25 MG IV (13:24)
[2022-08-11] MEDS: dexAMETHasone 10 MG/ML Vial IV (13:24)
[2022-08-11 13:38] LABS: Absolute Lymphocyte Count 2.17 X10^3/uL (0.83-4.51); Absolute Neutrophil Count 2.7 X10^3/uL (2.0-7.7); Basophil# 0.03 X10^3/uL; Basophil% 0.6 % (0-1); Eosinophil# 0.05 X10^3/uL; Hematocrit 39.2 % (37-47); Hemoglobin 12.8 g/dL (12.0-15.0); Lymphocyte # 2.17 X10^3/ul (0.83-4.51); Lymphocyte % 41.3 % (19-41); Mean Corp Hgb Conc 32.7 g/dL (32-36); Mean Corpuscular Hgb 30.4 pg (27.0-32.0); Mean Corpuscular Volume 93.1 fL (81-99); Monocyte# 0.33 X10^3/uL; Monocyte% 6.3 % (0-10); NRBC Flagged by Analyzer 0 % (0-5); Neutrophil # 2.66 X10^3/uL (2.7-7.7); Neutrophil % 50.4 % (47-70); Platelet Count 267 K/mm3 (150-450); RBC Distribution Width CV 13.3 % (11.6-14.6); RBC Distribution Width SD 45.3 fl (35.1-43.9); Red Blood Count 4.21 M/mm3 (4.2-5.4); White Blood Count 5.3 K/mm3 (4.4-11.0)
[2022-08-11 13:55] LABS: ALB/GLOB Ratio 1.1 RATIO (0.9-2.4); AST(SGOT) 11 U/L (15-37); Alanine Aminotransfer ALT/SGPT 18 U/L (13-56); Albumin, Serum 4.2 g/dL (3.2-5.0); Alkaline Phosphatase 60 U/L (45-117); Anion Gap 6 (5-15); BUN 14 mg/dL (7-18); Calcium,Total 9.5 mg/dL (8.5-10.1); Chloride 106 mmol/L (98-107); Creatinine, Serum 0.64 mg/dL (0.55-1.02); EST Glomerular Filtration Rate 122 mL/min (>60); Est Glom Filt Rate - Afr Amer 147 mL/min (>60); Estimated Creatinine Clearance 112.12 ml/min; Globulin 3.7 g/dL (2.2-4.2); Glucose 100 mg/dL (74-106); Potassium 3.6 mmol/L (3.5-5.1); Protein, Total 7.9 g/dL (6.4-8.2); Sodium Level 138 mmol/L (136-145)
[2022-08-11 14:00] LABS: Internal QC Validated? YES +Cl - CLEAR BKGD; Pregnancy, Serum, hCG Quali. NEGATIVE Negative
[2022-08-11 14:30] LABS: Prothrombin Time (Protime)PT. 13.3 SECONDS (11.7-14.9)
[2022-08-11 14:31] LABS: Partial Thromboplast Time 30.3 Seconds (24.1-36.2)
--- NOTE | 2022-08-11 14:53 | EDS_ITS ---
HPI History of Present Illness Chief Complaint: Eye Problem Informant: patient Onset/Context/Timing Location: Bilateral Eyes Onset: Days Context: Gradual Onset Timing: Continuous Worsened by: Nothing Relieved by: Nothing Associated Symptoms Visual correction: Glasses Narrative Narrative: Patient presents with swelling behind her eyes that has been constant for the past couple days. Patient states she went to the emergency department at [facility] a couple days ago and was told that she had swelling behind her eyes. Patient saw her manager code today for follow-up examination and he told her that she also had swelling behind her eyes. Patient states she was then referred to the emergency department. Patient denies any visual changes. Patient denies any loss of vision. Patient denies any headaches. Patient denies any paresthesias or weakness. Patient states she otherwise feels fine. Patient's manager code, Dr. Zenon Willard, called in prior to her coming to the emergency department. They recommend obtaining an MRI and MRV to rule out intracranial mass and dural sinus thrombosis. [facility] Medical History Abdominal discomfort Abdominal pain Acute exacerbation of chronic low back pain Anxiety Anxiety and depression Back problem Depression Epilepsy Flu vaccine need Headache HTN (hypertension) Insomnia Missed period Nausea and vomiting Seizures Home Medications labetalol 100 mg tablet 50 mg PO BID #90 tabs 06/07/22 [Rx Last Taken Unknown] omeprazole 40 mg capsule,delayed release 40 mg PO DAILY #90 caps 06/07/22 [Rx Last Taken Unknown] sertraline 50 mg tablet 75 mg PO DAILY 90 days #135 tabs 08/05/22 [Rx Last Taken Unknown] Allergy/AdvReac Type Severity Reaction Status Date / Time Iodinated Contrast Media Allergy Intermediate HIVES, Verified 08/11/22 11:31 SHORT OF BREATH codeine phosphate Allergy Hives Verified 08/11/22 11:31 [From Tylenol-Codeine #3] morphine Allergy Itching Verified 08/11/22 11:31 oxycodone HCl [From Percocet] Allergy Hives Verified 08/11/22 11:31 red dye Allergy Hives Verified 08/11/22 11:31 hydromorphone [From Dilaudid] AdvReac Itching Verified 08/11/22 11:31 Family History Mother Endometriosis Depression with anxiety Grandfather Diabetes Aunt Diabetes Grandfather Cancer unknown [place], passed of Unknown Hypertension High cholesterol Father Depression with anxiety Bipolar 1 disorder Surgical History H/O laparoscopy Social History Smoking Status: Unknown if ever smoked Electronic Cigarette Use: with nicotine alcohol intake: never substance use type: does not use caffeine: Yes what type of physical activity do you participate in: none seatbelt use: always do you feel safe at home: Yes 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 ROS ED Constitutional Constitutional ED: Denies chills or fever(s) Eyes Eyes: Denies blurry vision or change in vision ENT ENT ED: Denies rhinorrhea or sore throat Cardiovascular Cardiovascular: Denies chest pain or palpitations Respiratory/Chest Respiratory/Chest: Denies cough or dyspnea Gastrointestinal Gastrointestinal: Denies nausea or vomiting Genitourinary Genitourinary ED: Denies dysuria or hematuria Musculoskeletal Musculoskeletal: Reports back pain; Denies neck pain Integumentary Denies abscess or rash Neurologic Neurologic: Denies headache(s) or weakness Allergic/Immunologic Allergic/Immunologic ED: Denies mouth swelling or urticaria EXAM Physical Exam Const Vital Signs: 08/11/22 11:29 Temperature 97.5 F L Temperature Source Temporal Pulse Rate 80 Respiratory Rate 16 Blood Pressure 116/76 Blood Pressure Mean 89 Pulse Ox 98 Oxygen Delivery Method Room Air Positive well nourished and well developed General Appearance ED: well developed and NAD HEENT Reports moist mucous membranes Neck supple and no JVD Resp normal respiratory effort and clear to auscultation bilaterally Cardio regular rate and regular rhythm GI normal to inspection, nondistended, normoactive bowel sounds and non-tender Palpation: soft Extremity normal to inspection General Extremety ED: Negative for edema or tenderness General Extremity: Negative for edema Neuro oriented x3, CN's II-XII intact bilaterally and no sensory deficits noted Sensorium / Orientation: alert Motor Exam: strength 5/5 throughout Psych mental status grossly normal Skin no rashes or lesions noted MDM MDM MDM Narrative Medical decision making narrative: Patient has an allergy to contrast dye. Because of this, patient was given Adán adryl and Decadron here. CBC was obtained and was reviewed. This was within normal limits. PT was INR and PTT were obtained and were reviewed. This was within normal limits. Comprehensive metabolic profile was obtained and was reviewed. This was also within normal limits. Serum hCG was negative. Patient had no contraindications to MRI. MRI and MRV of the brain was obtained. There is no evidence of venous sinus thrombosis. There is some mild left optic neuritis/fluid distention of the optic nerve sheath at the optic nerve/rectal Junction. This was interpreted by the radiologist. These are also independently reviewed by myself. Patient was advised of her findings. Case was discussed with Dr. Agarwal from ophthalmology. They will attempt to contact neurology for follow-up care. Patient will follow-up with neurology for further evaluation of possible pseudotumor cerebri. Patient understood and was agreeable with plan. All questions were answered. Lab Data Attestation: I reviewed the patient's lab results. Labs: Laboratory Results - last 24 hr 08/11/22 08/11/22 08/11/22 13:27 13:27 13:27 WBC 5.3 RBC 4.21 Hgb 12.8 Hct 39.2 MCV 93.1 MCH 30.4 MCHC 32.7 RDW Std Deviation 45.3 H RDW Coeff of Danis 13.3 Plt Count 267 MPV 10.0 Immature Gran % (Auto) 0.400 Neut % (Auto) 50.4 Lymph % (Auto) 41.3 H [place] % (Auto) 6.3 Eos % (Auto) 1.0 Baso % (Auto) 0.6 Absolute Neuts (auto) 2.7 Absolute Lymphs (auto) 2.17 Nucleated RBC % 0 PT 13.3 INR 1.0 APTT 30.3 Sodium 138 Potassium 3.6 Chloride 106 Carbon Dioxide 26.0 Anion Gap 6 BUN 14 Creatinine 0.64 Estim Creat Clear Calc 112.12 Est GFR (MDRD) Af Amer 147 Est GFR (MDRD) Non-Af 122 BUN/Creatinine Ratio 22.0 H Glucose 100 Calcium 9.5 Total Bilirubin 0.60 AST 11 L ALT 18 Alkaline Phosphatase 60 Total Protein 7.9 Albumin 4.2 Globulin 3.7 Albumin/Globulin Ratio 1.1 Serum , Qual 08/11/22 13:27 WBC RBC Hgb Hct MCV MCH MCHC RDW Std Deviation RDW Coeff of Danis Plt Count MPV Immature Gran % (Auto) Neut % (Auto) Lymph % (Auto) [place] % (Auto) Eos % (Auto) Baso % (Auto) Absolute Neuts (auto) Absolute Lymphs (auto) Nucleated RBC % PT INR APTT Sodium Potassium Chloride Carbon Dioxide Anion Gap BUN Creatinine Estim Creat Clear Calc Est GFR (MDRD) Af Amer Est GFR (MDRD) Non-Af BUN/Creatinine Ratio Glucose Calcium Total Bilirubin AST ALT Alkaline Phosphatase Total Protein Albumin Globulin Albumin/Globulin Ratio Serum , Qual NEGATIVE Discharge Plan Triage Chief Complaint: Eye Problem ED Provider: Gregory Neil Dx/Rx/DC Orders Clinical Impression: Left optic neuritis Prescriptions: No Action labetalol 100 mg tablet 50 mg PO BID Qty: 90 1RF omeprazole 40 mg capsule,delayed release(DR/EC) 40 mg PO DAILY Qty: 90 1RF sertraline 50 mg tablet 75 mg PO DAILY 90 Days Qty: 135 0RF Primary Care Provider: Mina Vu Referrals: Mina Vu MD [Primary Care Provider] - 3-5 Days Zenon Gould MD [Med Staff - Active Staff] - 3-5 Days Disposition Disposition: Home, Self Care
== END 2022-08-11 17:05 | disposition home or self-care (01) ==
PROVIDERS: Emergency Provider Emergency Medicine; PCP Internal Medicine; Visit Provider Emergency Medicine
DX: H46.9 Unspecified optic neuritis (principal); F17.290 Nicotine dependence, other tobacco product, uncomplicated; I10 Essential (primary) hypertension
CPT/HCPCS: 70544; 70553; 80053; 84703; 85025; 85610; 85730; 99282; A9575; A4216

== ENCOUNTER 2022-12-02 11:00 | Outpatient (RCR) | payer MEDICAID, SELFPAY ==
--- NOTE | 2022-10-22 13:37 | HP.PTEVAL ---
Patient's Visit Information FAISAL FERNÁNDEZ is a 22 year old F referred to Physical Therapy by GIOVANI MACIEL with a diagnosis of LUMBAR PAIN ,S/P SPINAL SURGERY. Date of Evaluation: 10/22/22 Physical Therapist: Allen Hdz, PT, Cert MDT, OCS - Visit Plan Frequency: 2x /Week Duration: 6 Weeks Plan: OKAY REMOVE BRACE WITH SUPINE EX'S. PT INTERVENTIONS DLS ,RIGHT LE STRENGTHENING ,QUADS/HAMS/HIP /ANKLE ,POSTURAL EX'S ,LE FLEXABILITY AND GRADED LUMBAR ROM - Subjective This 22 y/o female presents to physical therapy with Lumbar pain . Patient underwent s/p right lumbar discectomy/laminectomy 09/14/[address] Vallejo at [facility] d/c same day with lumbar brace. Initially , seen October 06 with BLT and lumbar as silvia when walking. RTD December 08. Pain medication meloxicam , flexural . Patient located right lumbar to right leg to foot. Patient has weakness right leg. Patient has paresthesia/tingling right leg. Aggravating standing ~ 10mins and unable to bending. Alleviating some better with walking and sitting. Bowel/bladder -. Coughing/sneezing - . No Abnormal night pain. Pain affects sleeping. Patient has had lumbar radicular symptoms many years . Tried PT in past. Symptoms worse past several months MRI showed HNP . Patient tried epidural injections which made symptoms. Patient has not been working since Apr. Patient surgery has affected QOL and function. SOCIAL: [place]. VOCATION: unemployed - Pain Right Back Pain Intensity (Out of 10): 8 Pain Intensity Range: 10 Right Lower Extremity Pain Intensity (Out of 10): 8 - Objective POSTURE: mild forward posture. GAIT: mild forward posture reciprocal pattern steppage gait right ankle with decrease stance time. NEURO: c/o paresthesia/tingling right leg ,light touch intact ,+ ANR right leg ,myotome weakness ,reflexes L3-4,L4-5,L5-S1 1/3. SYMMTRIES: align. FLEXABLITY; mod tight hamstring tightness. MMT: (peak force) quads 8.5 ,hamstrings 10.6 ,anterior tibia 4.2 ,GTE 3.3 ,hip flexion 6.7 -Right leg. LUMBAR ROM: flexion mod loss ,extension min/mod loss ,side glides min loss - Special Tests L/S Slump test left side: Negative L/S Slump test right side: Positive L/S Left Straight Leg Raise: Negative L/S Right Straight Leg Raise: Positive - Balance/Special Test Scores Oswestry Low Back Score: 35 - Goals Goal 1:: Patient to be I with HEP Goal Time Frame: 6-8 Weeks Goal 2:: Patient improve posture/body mechanics 80% of time for ADLS Goal Time Frame: 6-8 Weeks Goal 3:: Patient improve lumbar ROM for function of recovery to tie shoes Goal Time Frame: 6-8 Weeks Goal 4:: Patient to improve peak force right quads/hams /hip/ankle by 5-10 to improve gait and function Goal Time Frame: 6-8 Weeks Goal 5:: Patient to improve back oswestry score by 5 points to improve function /QOL. Goal Time Frame: 6-8 Weeks Goal 6:: Patient to ambulate with improve gait pattern 90% to improve function Goal Time Frame: 6-8 Weeks - Rehabilitation Potential Physical Therapy Diagnosis: This patient underwent s/p lumbar surgery microdiscectomy/laminectomy 09/14/22 with weakness right leg ,decrease gait ,pain and poor lumbar ROM thus will benefit from skilled PT Rehabilitation Potential: Good - Anticipated Interventions Patient/Client Instruction: Educate patient on: Condition, Plan of Care For the Purpose of:: To decrease pain, To increase ROM, To improve muscle performance and motor function, To improve ability to perform ADL's, To increase tolerance to activity/condition/position, To improve ability of physical actions for home/community/work/leisure, To improve gait and locomotor functions, To improve health of tissue, To decrease soft tissue restriction, To increase flexibility/ROM, To improve endurance, To prevent re-injury, To improve tolerance to ADL's Therapeutic Exercise to Include: Strength training, Endurance training, Balance training, Body mechanics, Postural training, Flexibilty training, Dynamic Lumbar Stabilization Comment: RLE STRENGTHENING For the Purpose of:: To decrease pain, To increase ROM, To improve muscle performance and motor function, To improve ability to perform ADL's, To increase tolerance to activity/condition/position, To improve ability of physical actions for home/community/work/leisure, To improve health of tissue, To decrease soft tissue restriction, To increase flexibility/ROM, To improve balance, To prevent re-injury, To improve tolerance to ADL's Thank you for the opportunity to evaluate your patient. For Medicare and Medicare HMO plans, please review the plan of care and approve it. It will need to be FAXED BACK to us at [phone] for Medicare purposes. For Medicare only, by signing this I certify the plan of care. Please let me know if there are questions or concerns regarding this plan of care. Physician Signature: Date:
--- NOTE | 2023-03-22 11:17 | HP.PT.NRP ---
Patient Information Patient Information: FAISAL FERNÁNDEZ was seen in my office for initial evaluation on 10/22/22. The following Plan of Care was established for this patient: POC Established Initial Frequency: 2x /Week Initial Duration: 6 Weeks Anticipated Interventions Patient/Client Instruction: Educate patient on: Condition and Plan of Care For the Purpose of:: To decrease pain, To increase ROM, To improve muscle performance and motor function, To improve ability to perform ADL's, To increase tolerance to activity/condition/position, To improve ability of physical actions for home/community/work/leisure, To improve gait and locomotor functions, To improve health of tissue, To decrease soft tissue restriction, To increase flexibility/ROM, To improve endurance, To prevent re-injury and To improve tolerance to ADL's Therapeutic Exercise to Include: Strength training, Endurance training, Balance training, Body mechanics, Postural training, Flexibilty training and Dynamic Lumbar Stabilization For the Purpose of:: To decrease pain, To increase ROM, To improve muscle performance and motor function, To improve ability to perform ADL's, To increase tolerance to activity/condition/position, To improve ability of physical actions for home/community/work/leisure, To improve health of tissue, To decrease soft tissue restriction, To increase flexibility/ROM, To improve balance, To prevent re-injury and To improve tolerance to ADL's Last Seen Last Seen: This patient was last seen in our office . Pertinent comments regarding their Physical therapy will appear below: Patient was seen for PT for lumbar surgery for DLS and postural ex's thus is d/c due to not returning and cont to c/o pain At this point I will be discontinuing this patient from physical therapy. I would be happy to see this patient again in the future if found appropriate by the physician. Thank you! Allen Hdz, PT, Cert MDT, OCS Balance/Gait/Functional tests Balance/Special Test Scores Oswestry Low Back Score: 35
== END 2022-12-02 19:00 | disposition home or self-care (01) ==
LOC: PT 11:00
PROVIDERS: PCP Internal Medicine
DX: M54.50 Low back pain, unspecified (principal); Z98.890 Other specified postprocedural states
CPT/HCPCS: 97110; 97113; 97162

== ENCOUNTER → 2023-01-03 | Outpatient (CLI) | payer MEDICAID, SELFPAY ==
[2023-01-03 17:50] LABS: Absolute Lymphocyte Count 2.93 X10^3/uL (0.83-4.51); Absolute Neutrophil Count 3.1 X10^3/uL (2.0-7.7); Basophil# 0.03 X10^3/uL; Basophil% 0.4 % (0-1); Eosinophil# 0.18 X10^3/uL; Eosinophils% 2.7 % (0-5); Hematocrit 38.5 % (37-47); Hemoglobin 12.8 g/dL (12.0-15.0); Lymphocyte # 2.93 X10^3/ul (0.83-4.51); Lymphocyte % 43.9 % (19-41); Mean Corp Hgb Conc 33.2 g/dL (32-36); Mean Corpuscular Volume 93.2 fL (81-99); Mean Platelet Vol. 10.4 fl (6.2-12.0); Monocyte# 0.39 X10^3/uL; Monocyte% 5.8 % (0-10); NRBC Flagged by Analyzer 0 % (0-5); Neutrophil # 3.13 X10^3/uL (2.7-7.7); Neutrophil % 46.9 % (47-70); Platelet Count 299 K/mm3 (150-450); RBC Distribution Width CV 13.5 % (11.6-14.6); RBC Distribution Width SD 46.1 fl (35.1-43.9); Red Blood Count 4.13 M/mm3 (4.2-5.4); White Blood Count 6.7 K/mm3 (4.4-11.0)
[2023-01-03 18:01] LABS: Erythrocyte Sedimentation Rate 16 mm/hr (0-30)
[2023-01-03 18:10] LABS: Vitamin B12 253 pg/mL (211-911)
[2023-01-03 18:44] LABS: ALB/GLOB Ratio 1.1 RATIO (0.9-2.4); AST(SGOT) 17 U/L (15-37); Alanine Aminotransfer ALT/SGPT 26 U/L (13-56); Alkaline Phosphatase 72 U/L (45-117); Anion Gap 7 (5-15); BUN 14 mg/dL (7-18); BUN/Creat Ratio 22.4 RATIO (10-20); CRP < 2.90 mg/L (0.0-3.0); Calcium,Total 8.9 mg/dL (8.5-10.1); Chloride 108 mmol/L (98-107); Creatinine, Serum 0.62 mg/dL (0.55-1.02); EST Glomerular Filtration Rate 124 mL/min (>60); Est Glom Filt Rate - Afr Amer 150 mL/min (>60); Globulin 3.5 g/dL (2.2-4.2); Glucose 84 mg/dL (74-106); LDH 207 U/L (84-246); Potassium 3.7 mmol/L (3.5-5.1); Protein, Total 7.5 g/dL (6.4-8.2); Sodium Level 140 mmol/L (136-145)
[2023-01-05 13:08] LABS: Anti-Centromere B Ab <0.2 AI (0.0-0.9); Anti-Chromatin <0.2 AI (0.0-0.9); Anti-Jo <0.2 AI (0.0-0.9); Anti-Scleroderma-70 AB 0.2 AI (0.0-0.9); Anti-dsDNA Ab <1 IU/mL (0-9); RNP Ab <0.2 AI (0.0-0.9); SJOGREN'S Anti-SS-A test < 0.2 AI (0.0-0.9); SJOGREN'S Anti-SS-B test < 0.2 AI (0.0-0.9); Smith Ab <0.2 AI (0.0-0.9)
[2023-01-06 08:12] LABS: Endomysial Antibody IgA Negative (Negative); Immunoglobulin A 110 mg/dL (87-352); t-Transglutaminase IgA <2 U/mL (0-3)
[2023-01-08 22:07] LABS: Albumin 4.2 g/dL (2.9-4.4); Alpha-1-Globulins 0.2 g/dL (0.0-0.4); Alpha-2-Globulins 0.8 g/dL (0.4-1.0); Cytoplasmic Ab (C-ANCA) <1:20 titer (Neg:<1:20); Gamma Globulin 0.9 g/dL (0.4-1.8); Immunoglobulin A 107 mg/dL (87-352); Immunoglobulin E 23 IU/mL (6-495); Immunoglobulin G 979 mg/dL (586-1602); Immunoglobulin M 85 mg/dL (26-217); PROEL- TOTAL PROTEIN 7.1 g/dL (6.0-8.5); Perinuclear Ab (P-ANCA) <1:20 titer (Neg:<1:20)
== END | disposition home or self-care (01) ==
LOC: LAB 16:25
PROVIDERS: PCP Internal Medicine; Referring Provider Internal Medicine Gastroenterology; Visit Provider Internal Medicine Gastroenterology
DX: K58.0 Irritable bowel syndrome with diarrhea (principal)
CPT/HCPCS: 36415; 80053; 82607; 82746; 82784; 82785; 83516; 83615; 84165; 85025; 85652; 86140; 86225; 86235; 86255; 86256; 86334

== ENCOUNTER → 2023-01-04 | Outpatient (CLI) | payer MEDICAID, SELFPAY ==
[2023-01-09 20:07] LABS: Pancreatic Elastase, Fecal 198 (>200)
[2023-01-12 13:07] LABS: Calprotectin, Stool 27 ug/g (0-120)
== END | disposition home or self-care (01) ==
LOC: LABSPEC 08:46
PROVIDERS: PCP Internal Medicine; Referring Provider Internal Medicine Gastroenterology; Visit Provider Internal Medicine Gastroenterology
DX: K58.0 Irritable bowel syndrome with diarrhea (principal)
CPT/HCPCS: 82653; 83630; 83993; 87177; 87209; 87329; 87506

== ENCOUNTER → 2023-01-18 | Outpatient (CLI) | payer MEDICAID, SELFPAY | END | disposition home or self-care (01) | LOC: LABSPEC 15:09 | PROVIDERS: PCP Internal Medicine; Referring Provider Internal Medicine Gastroenterology; Visit Provider Internal Medicine Gastroenterology | DX: R19.7 Diarrhea, unspecified (principal) | CPT/HCPCS: 87506 ==

== ENCOUNTER → 2023-02-02 | Outpatient (CLI) | payer MEDICAID, SELFPAY ==
[2023-02-02 12:23] LABS: Absolute Lymphocyte Count 2.18 X10^3/uL (0.83-4.51); Absolute Neutrophil Count 2.4 X10^3/uL (2.0-7.7); Basophil# 0.04 X10^3/uL; Basophil% 0.7 % (0-1); Eosinophil# 0.15 X10^3/uL; Eosinophils% 2.8 % (0-5); Hematocrit 40.9 % (37-47); Hemoglobin 13.2 g/dL (12.0-15.0); Lymphocyte # 2.18 X10^3/ul (0.83-4.51); Lymphocyte % 40.7 % (19-41); Mean Corp Hgb Conc 32.3 g/dL (32-36); Mean Corpuscular Hgb 30.4 pg (27.0-32.0); Mean Corpuscular Volume 94.2 fL (81-99); Mean Platelet Vol. 10.1 fl (6.2-12.0); Monocyte# 0.54 X10^3/uL; Monocyte% 10.1 % (0-10); NRBC Flagged by Analyzer 0 % (0-5); Neutrophil # 2.42 X10^3/uL (2.7-7.7); Neutrophil % 45.3 % (47-70); Platelet Count 301 K/mm3 (150-450); RBC Distribution Width CV 13.4 % (11.6-14.6); RBC Distribution Width SD 46.5 fl (35.1-43.9); Red Blood Count 4.34 M/mm3 (4.2-5.4); White Blood Count 5.4 K/mm3 (4.4-11.0)
[2023-02-02 12:50] LABS: ALB/GLOB Ratio 0.9 RATIO (0.9-2.4); AST(SGOT) 15 U/L (15-37); Alanine Aminotransfer ALT/SGPT 23 U/L (13-56); Albumin, Serum 3.8 g/dL (3.2-5.0); Alkaline Phosphatase 75 U/L (45-117); Amylase 32 U/L (25-115); Anion Gap 7 (5-15); BUN 12 mg/dL (7-18); BUN/Creat Ratio 16.6 RATIO (10-20); Calcium,Total 9.1 mg/dL (8.5-10.1); Chloride 105 mmol/L (98-107); Creatinine, Serum 0.72 mg/dL (0.55-1.02); EST Glomerular Filtration Rate 104 mL/min (>60); Est Glom Filt Rate - Afr Amer 126 mL/min (>60); Globulin 4.1 g/dL (2.2-4.2); Glucose 94 mg/dL (74-106); Lipase 21 U/L (13-75); Potassium 3.9 mmol/L (3.5-5.1); Protein, Total 7.9 g/dL (6.4-8.2); Sodium Level 138 mmol/L (136-145)
== END | disposition home or self-care (01) ==
LOC: BIMLAB 09:05
PROVIDERS: PCP Internal Medicine; Visit Provider Internal Medicine
DX: R19.7 Diarrhea, unspecified (principal); R10.9 Unspecified abdominal pain
CPT/HCPCS: 36415; 80053; 82150; 83690; 85025

== ENCOUNTER → 2023-02-03 | Outpatient (CLI) | payer MEDICAID, SELFPAY | END | disposition home or self-care (01) | LOC: LABSPEC 11:42 | PROVIDERS: PCP Internal Medicine; Referring Provider Internal Medicine; Visit Provider Internal Medicine | DX: R19.7 Diarrhea, unspecified (principal); K58.9 Irritable bowel syndrome, unspecified | CPT/HCPCS: 87493; 87506 ==

== ENCOUNTER → 2023-02-16 | Outpatient (CLI) | payer MEDICAID, SELFPAY ==
--- NOTE | 2023-02-16 08:50 | US_ITS ---
STUDY: ABDOMINAL ULTRASOUND - RIGHT UPPER QUADRANT REASON FOR VISIT: Female, 22 years old RUQ Pain TECHNIQUE: Ultrasound evaluation of the right upper quadrant was performed with real-time and static coughlin-scale imaging. TECHNICAL QUALITY: Adequate. COMPARISON: Comparison is made with prior study dated September 03, 2020. FINDINGS: Liver: The liver measures 17.4 cm. There is increased echogenicity consistent with fatty infiltration. The bile ducts are within normal limits. There is hepatic color flow. The direction of portal flow is hepatopetal. There is no demonstrated mass lesion. Gallbladder: Normal distended gallbladder. The gallbladder wall measures 1 mm. There is a negative sonographic Vargas''s sign. There is no pericholecystic fluid. There are no gallstones. Common Bile Duct (C.B.D.): The common bile duct measures 4 mm. Pancreas: Normal size of the head, body and tail of the pancreas. There is normal echogenicity of the pancreas. There is no demonstrated pancreatic mass or cyst. Right Kidney: Normal size of the right kidney. The right kidney measures 11.3 cm x 4.3 cm x 4.8 cm. Normal renal cortex. The right cortex measures 2.2 cm. There is no demonstrated renal mass or cyst. There is no right hydronephrosis. US/Gallbladder IMPRESSION: Fatty infiltration of the liver. Electronically Signed: Brendan Adamson MD at 9:48 EDT ,
== END | disposition home or self-care (01) ==
LOC: US 08:49
PROVIDERS: PCP Internal Medicine; Referring Provider Internal Medicine; Visit Provider Internal Medicine
DX: R10.11 Right upper quadrant pain (principal); R19.7 Diarrhea, unspecified
CPT/HCPCS: 76705

== ENCOUNTER → 2023-03-11 | Outpatient (CLI) | payer MEDICAID, SELFPAY ==
[2023-03-15 20:07] LABS: QNTFERON TB Mitogen Value > 10.00 IU/mL (.); QNTFERON TB Nil Value 0.01 IU/mL (.); QNTFERON TB1+ Ag Value 0.03 IU/mL (.); QNTFERON TB2+ Ag Value 0.03 IU/mL (.); QNTIFERON TB Positive Criteria Negative (Negative)
== END | disposition home or self-care (01) ==
LOC: MTLAB 10:23
PROVIDERS: PCP Internal Medicine; Referring Provider Physician Assistant Surgical; Visit Provider Physician Assistant Surgical
DX: Z02.1 Encounter for pre-employment examination (principal)
CPT/HCPCS: 36415; 86480

== ENCOUNTER → 2023-09-22 | Outpatient (CLI) | payer MEDICAID, SELFPAY ==
[2023-09-22 16:57] LABS: Absolute Lymphocyte Count 2.09 X10^3/uL (0.83-4.51); Absolute Neutrophil Count 4.6 X10^3/uL (2.0-7.7); Basophil# 0.03 X10^3/uL; Basophil% 0.4 % (0-1); Eosinophil# 0.07 X10^3/uL; Hematocrit 41.8 % (37-47); Hemoglobin 13.5 g/dL (12.0-15.0); Lymphocyte # 2.09 X10^3/ul (0.83-4.51); Lymphocyte % 28.9 % (19-41); Mean Corp Hgb Conc 32.3 g/dL (32-36); Mean Corpuscular Volume 92.9 fL (81-99); Mean Platelet Vol. 10.5 fl (6.2-12.0); Monocyte# 0.43 X10^3/uL; Monocyte% 5.9 % (0-10); NRBC Flagged by Analyzer 0 % (0-5); Neutrophil # 4.57 X10^3/uL (2.7-7.7); Neutrophil % 63.2 % (47-70); Platelet Count 297 K/mm3 (150-450); RBC Distribution Width CV 15.1 % (11.6-14.6); RBC Distribution Width SD 51.9 fl (35.1-43.9); White Blood Count 7.2 K/mm3 (4.4-11.0)
[2023-09-22 17:14] LABS: AST(SGOT) 15 U/L (15-37); Alanine Aminotransfer ALT/SGPT 27 U/L (13-56); Alkaline Phosphatase 74 U/L (45-117); Anion Gap 6 (5-15); BUN 9 mg/dL (7-18); BUN/Creat Ratio 11.7 RATIO (10-20); Calcium,Total 9.8 mg/dL (8.5-10.1); Chloride 103 mmol/L (98-107); Cholesterol 211 mg/dL (200); Creatinine, Serum 0.77 mg/dL (0.55-1.02); EST Glomerular Filtration Rate 97 mL/min (>60); Est Glom Filt Rate - Afr Amer 117 mL/min (>60); Globulin 4.1 g/dL (2.2-4.2); Glucose 117 mg/dL (74-106); High Density Lipoprotein 81 mg/dL; Potassium 3.8 mmol/L (3.5-5.1); Protein, Total 8.1 g/dL (6.4-8.2); Sodium Level 137 mmol/L (136-145); Triglycerides 187 mg/dL; Very Low Density Lipoprotein 37 mg/dL (5-40)
== END | disposition home or self-care (01) ==
LOC: BIMLAB 14:37
PROVIDERS: PCP Internal Medicine; Visit Provider Internal Medicine
DX: I10 Essential (primary) hypertension (principal)
CPT/HCPCS: 36415; 80053; 80061; 85025

== ENCOUNTER 2023-09-28 20:08 | Emergency (ER) | payer MEDICAID, SELFPAY ==
[2023-09-28 20:09] VITALS: BP 128/90; PULSE 100; RESP 18; TEMP 36.8; O2SAT 97; BMI 34.7
[2023-09-28 20:57] LABS: Absolute Lymphocyte Count 2.88 X10^3/uL (0.83-4.51); Absolute Neutrophil Count 8.3 X10^3/uL (2.0-7.7); Basophil# 0.05 X10^3/uL; Basophil% 0.4 % (0-1); Eosinophil# 0.09 X10^3/uL; Eosinophils% 0.7 % (0-5); Hematocrit 37.3 % (37-47); Hemoglobin 12.6 g/dL (12.0-15.0); Lymphocyte # 2.88 X10^3/ul (0.83-4.51); Lymphocyte % 23.6 % (19-41); Mean Corp Hgb Conc 33.8 g/dL (32-36); Mean Corpuscular Hgb 30.4 pg (27.0-32.0); Mean Corpuscular Volume 89.9 fL (81-99); Mean Platelet Vol. 10.4 fl (6.2-12.0); Monocyte# 0.85 X10^3/uL; NRBC Flagged by Analyzer 0 % (0-5); Neutrophil # 8.26 X10^3/uL (2.7-7.7); Neutrophil % 67.8 % (47-70); Platelet Count 298 K/mm3 (150-450); RBC Distribution Width CV 15.3 % (11.6-14.6); RBC Distribution Width SD 50.2 fl (35.1-43.9); Red Blood Count 4.15 M/mm3 (4.2-5.4); White Blood Count 12.2 K/mm3 (4.4-11.0)
[2023-09-28] MEDS: Ondansetron 4 MG/2 ML Vial IV (20:59)
[2023-09-28] MEDS: Ketorolac 30 MG/ML Syringe IV (20:59)
[2023-09-28] MEDS: 0.9% Normal Saline (1000mL) 1,000 ML 250 ML IV (20:59)
--- NOTE | 2023-09-28 21:00 | EDS_ITS ---
HPI <Joan Ryan RN - Last Filed: 09/28/23 22:16> History of Present Illness Chief Complaint: Flank Pain Informant: patient Onset/Context/Timing Onset: Days (5) Timing: Intermittent Quality: Burning Location: Right abdomen, right flank Current Severity: 8/10 Maximum Severity: 8/10 Associated Symptoms Associated Symptoms: Nausea and vomiting Narrative Narrative: Patient is a 23-year-old female who presents to the ED for chest wall burning in the mid abdomen and right flank pain radiating down her buttock and right leg x 5 days. Patient also reports nausea and vomiting beginning tonight. Patient reports prior history of sciatic pain. However she reports this pain is different. She last took Motrin at 3:30 PM today without relief. She has no history of kidney stones. No family history of kidney stones. She does report a back surgery 09/14/2022. She reports only urinating small amounts. However this is chronic. She denies recent surgeries or recent travel. Prior similar symptoms: No Recent Illness/Hospitalization: No PFSH <Joan Ryan RN - Last Filed: 09/28/23 22:16> PFSH Medical History Abdominal discomfort Abdominal pain Acute exacerbation of chronic low back pain Anxiety Anxiety and depression Back problem Change in bowel habit Depression Epilepsy Flu vaccine need Gastroenteritis GERD (gastroesophageal reflux disease) Headache HTN (hypertension) Insomnia Irritable bowel syndrome with diarrhea Nausea and vomiting Seizures Home Medications omeprazole 40 mg capsule,delayed release See Rx Instructions .Route .COMPLEX #90 caps 09/02/23 [Rx Last Taken Unknown] sertraline 100 mg tablet 100 mg PO DAILY #30 tabs 09/21/23 [Rx Last Taken Unknown] norethindrone (contraceptive) 0.35 mg tablet (Stephanie) 0.35 mg PO QDAY #28 tabs 09/27/23 [Rx Last Taken Unknown] Allergy/AdvReac Type Severity Reaction Status Date / Time Iodinated Contrast Media Allergy Intermediate HIVES, Verified 09/28/23 20:11 SHORT OF BREATH codeine phosphate Allergy Hives Verified 09/28/23 20:11 [From Tylenol-Codeine #3] morphine Allergy Itching Verified 09/28/23 20:11 oxycodone HCl [From Percocet] Allergy Hives Verified 09/28/23 20:11 red dye Allergy Hives Verified 09/28/23 20:11 hydromorphone [From Dilaudid] AdvReac Itching Verified 09/28/23 20:11 Family History Mother Endometriosis Depression with anxiety Grandfather Diabetes Aunt Diabetes Grandfather Cancer unknown CA, passed of Unknown Hypertension High cholesterol Father Depression with anxiety Bipolar 1 disorder Surgical History H/O laparoscopy History of laminectomy Social History Smoking Status: Unknown if ever smoked Electronic Cigarette Use: with nicotine alcohol intake: never substance use type: does not use caffeine: Yes what type of physical activity do you participate in: none seatbelt use: always do you feel safe at home: Yes additional social history: [facility] ROS <Joan Ryan RN - Last Filed: 09/28/23 22:16> ROS ED Constitutional Constitutional ED: Denies chills, fever(s) or sweats Eyes Eyes: Denies change in vision ENT ENT ED: Denies rhinorrhea or sore throat Cardiovascular Cardiovascular: Denies chest pain, orthopnea or palpitations Respiratory/Chest Respiratory/Chest: Denies cough, dyspnea or orthopnea Gastrointestinal Gastrointestinal: Reports abdominal pain, nausea and vomiting; Denies constipation or diarrhea Genitourinary Genitourinary ED: Reports LMP (females 10-50) Details: Comment: (08/29/2023); Denies dysuria, hematuria or urinary frequency Musculoskeletal Musculoskeletal: Reports back pain; Denies arthralgias, myalgias or neck pain Integumentary Denies abscess, Abrasions or rash Neurologic Neurologic: Denies headache(s), paresthesias or weakness Psychiatric Psychiatric: Denies anxiety or depression Hematologic/Lymphatic Hematologic/Lymphatic: Reports systems reviewed and no addt'l complaints, except as documented EXAM <Joan Ryan RN - Last Filed: 09/28/23 22:16> Physical Exam Narrative Exam Narrative: Patient awake and alert. Const Vital Signs: 09/28/23 20:09 Temperature 98.2 F Temperature Source Temporal Pulse Rate 100 Respiratory Rate 18 Blood Pressure 128/90 H Blood Pressure Mean 102 Pulse Ox 97 Oxygen Delivery Method Room Air Positive well nourished and well developed General Appearance ED: well developed and NAD HEENT Reports moist mucous membranes Negative for trauma Eyes PERRL and EOMs intact bilaterally Neck no lymphadenopathy, supple and no JVD Chest Wall inspection of chest normal and palpation of chest normal Resp normal respiratory effort and clear to auscultation bilaterally Auscultation: Negative for rales, rhonchi or wheezes Cardio regular rate, regular rhythm, S1 normal heart sound and S2 normal heart sound GI normal to inspection, nondistended, normoactive bowel sounds and non-tender Auscultation: normoactive bowel sounds Palpation: soft Back/Spine General Back: CVA tenderness right Extremity normal to inspection General Extremety ED: Negative for edema or tenderness General Extremity: Negative for edema Neuro oriented x3 Sensorium / Orientation: alert Motor Exam: strength 5/5 throughout Psych mental status grossly normal Skin no rashes or lesions noted <Dr. Babak Whitaker MD - Last Filed: 09/28/23 21:25> Physical Exam Const Vital Signs: 09/28/23 20:09 Temperature 98.2 F Temperature Source Temporal Pulse Rate 100 Respiratory Rate 18 Blood Pressure 128/90 H Blood Pressure Mean 102 Pulse Ox 97 Oxygen Delivery Method Room Air MDM <Joan Ryan RN - Last Filed: 09/28/23 22:16> MDM MDM Narrative Medical decision making narrative: IV line initiated. Labwork obtained to evaluate for leukocytosis, anemia, and electrolyte derangement. Urinalysis obtained to evaluate for infection/hematuria. CT abdomen/pelvis ordered to evaluate for kidney stones. Patient given Toradol and Zofran for pain. I have personally performed a face to face assessment of the patient and have reviewed the JEREL Note. I performed a substantive portion of the visit including all aspects of the following. My hernandez findings include: History is 23-year-old female history of chronic back pain with prior lumbar back surgery for disc. Denies any fall injury or trauma. No fever. For 4 days she has had lower back pain and in the last 24 hours or so start radiating to her right flank and suprapubic area. She also has had some nausea and vomiting which she thinks is secondary to pain. Denies any fever. No hematuria. No dysuria. No history of kidney stones. No abdominal trauma. No falls. No leg weakness or numbness. No radiation of the pain to her legs. Exam is [23-year-old female. Vital signs are stable. She is afebrile. She does not look septic or toxic. H EENT exam unremarkable. Mytrex members. Neck nontender. Lungs clear to auscultation bilaterally. Heart regular rhythm rate about 95 no murmur. Chest wall and ribs nontender. Abdomen is soft, nontender, nondistended normal bowel sounds no peritoneal signs. No McBurney's point or right upper quadrant tenderness. No hernia or mass. No obstruction. Back she has reproducible lumbar and right CVA tenderness. There is no ecchymosis or bruising. There is no redness or warmth. There is no signs of trauma. Moving all 4 extremities. Neurovascularly intact. 5 out of 5 travel specialist strength. Normal dorsi and plantarflexion. Negative straight leg raise bilaterally. No cauda equina. Normal medial thigh sensation. Neurologically she is awake and alert with no focal motor deficits.] Medical Decision Making [patient with back and flank pain. Clinically think this may be musculoskeletal back pain. Versus kidney stone or other etiologies. CAT scan and labs are being obtained. She will be treated with Toradol for pain. Zofran for nausea.] Other additions or changes: [None] History & Record Review Discussion w/independent historian: Patient and Family Lab Data Labs: Laboratory Results - last 24 hr 09/28/23 09/28/23 20:00 20:23 WBC 12.2 H RBC 4.15 L Hgb 12.6 Hct 37.3 MCV 89.9 MCH 30.4 MCHC 33.8 RDW Std Deviation 50.2 H RDW Coeff of Danis 15.3 H Plt Count 298 MPV 10.4 Immature Gran % (Auto) 0.500 Neut % (Auto) 67.8 Lymph % (Auto) 23.6 [place] % (Auto) 7.0 Eos % (Auto) 0.7 Baso % (Auto) 0.4 Absolute Neuts (auto) 8.3 H Absolute Lymphs (auto) 2.88 Nucleated RBC % 0 Sodium 138 Potassium 3.7 Chloride 106 Carbon Dioxide 25.0 Anion Gap 7 BUN 14 Creatinine 0.94 Estim Creat Clear Calc 96.77 Est GFR (MDRD) Af Amer 93 Est GFR (MDRD) Non-Af 77 BUN/Creatinine Ratio 15.0 Glucose 100 Calcium 9.5 Serum , Qual NEGATIVE Urine Color Yellow Urine Clarity Clear Urine pH 6.0 Ur Specific [place] 1.025 Urine Protein 30 H Urine Glucose (UA) Normal Urine Ketones 5 H Urine Occult Blood Negative Urine Nitrite Negative Urine Bilirubin Negative Urine Urobilinogen 1 H Ur Leukocyte Esterase 25 H Urine RBC 0 SEEN Urine WBC 0-5 SEEN Ur Squamous Epith Cells 5-10 SEEN Calcium Oxalate Crystal 1+ Urine Bacteria 1+ Urine Mucus 0 SEEN Differential Diagnosis Abdominal Pain: UTI Differential Diagnosis: Renal calculi Management Discussion w/another healthcare provider: Other (Dr. Whitaker, ED provider.) Treatment and Re-Evaluation :: Lab work and imaging reviewed. CBC significant for elevated white blood cell count of 12.2 with normal neutrophils 67.8. Hemoglobin 12.6. Chemistry unremarkable. Urinalysis negative for UTI. CT abdomen pelvis negative for renal calculi. Upon reevaluation, patient reports right flank/lower back pain decreased to 7/10. Patient declined fentanyl. <Dr. Babak Whitaker MD - Last Filed: 09/28/23 21:25> MDM MDM Narrative Medical decision making narrative: IV line initiated. Labwork obtained to evaluate for leukocytosis, anemia, and electrolyte derangement. Urinalysis obtained to evaluate for infection/hematuria. CT abdomen/pelvis ordered to evaluate for kidney stones. Patient given Toradol and Zofran for pain. I have personally performed a face to face assessment of the patient and have reviewed the JEREL Note. I performed a substantive portion of the visit including all aspects of the following. My hernandez findings include: History is 23-year-old female history of chronic back pain with prior lumbar back surgery for disc. Denies any fall injury or trauma. No fever. For 4 days she has had lower back pain and in the last 24 hours or so start radiating to her right flank and suprapubic area. She also has had some nausea and vomiting which she thinks is secondary to pain. Denies any fever. No hematuria. No dysuria. No history of kidney stones. No abdominal trauma. No falls. No leg weakness or numbness. No radiation of the pain to her legs. Exam is [23-year-old female. Vital signs are stable. She is afebrile. She does not look septic or toxic. H EENT exam unremarkable. Mytrex members. Neck nontender. Lungs clear to auscultation bilaterally. Heart regular rhythm rate about 95 no murmur. Chest wall and ribs nontender. Abdomen is soft, nontender, nondistended normal bowel sounds no peritoneal signs. No McBurney's point or right upper quadrant tenderness. No hernia or mass. No obstruction. Back she has reproducible lumbar and right CVA tenderness. There is no ecchymosis or bruising. There is no redness or warmth. There is no signs of trauma. Moving all 4 extremities. Neurovascularly intact. 5 out of 5 travel specialist strength. Normal dorsi and plantarflexion. Negative straight leg raise bilaterally. No cauda equina. Normal medial thigh sensation. Neurologically she is awake and alert with no focal motor deficits.] Medical Decision Making [patient with back and flank pain. Clinically think this may be musculoskeletal back pain. Versus kidney stone or other etiologies. CAT scan and labs are being obtained. She will be treated with Toradol for pain. Zofran for nausea.] Other additions or changes: [None] Lab Data Attestation: I reviewed the patient's lab results. Lab results narrative: CBC shows a white count of 12.2. H&H 12.6 and 37. Platelets 298. Chemistries show a gap of 7. Normal BUN and creatinine. Glucose of 100. Serum test negative. UA shows 0 red cells. 0 white cells. 1+ bacteria. It is contaminated with 5- 10 epithelial cells. No nitrates. It is basically negative. Labs: Laboratory Results - last 24 hr 09/28/23 09/28/23 20:00 20:23 WBC 12.2 H RBC 4.15 L Hgb 12.6 Hct 37.3 MCV 89.9 MCH 30.4 MCHC 33.8 RDW Std Deviation 50.2 H RDW Coeff of Danis 15.3 H Plt Count 298 MPV 10.4 Immature Gran % (Auto) 0.500 Neut % (Auto) 67.8 Lymph % (Auto) 23.6 [place] % (Auto) 7.0 Eos % (Auto) 0.7 Baso % (Auto) 0.4 Absolute Neuts (auto) 8.3 H Absolute Lymphs (auto) 2.88 Nucleated RBC % 0 Sodium 138 Potassium 3.7 Chloride 106 Carbon Dioxide 25.0 Anion Gap 7 BUN 14 Creatinine 0.94 Estim Creat Clear Calc 96.77 Est GFR (MDRD) Af Amer 93 Est GFR (MDRD) Non-Af 77 BUN/Creatinine Ratio 15.0 Glucose 100 Calcium 9.5 Serum , Qual NEGATIVE Urine Color Yellow Urine Clarity Clear Urine pH 6.0 Ur Specific [place] 1.025 Urine Protein 30 H Urine Glucose (UA) Normal Urine Ketones 5 H Urine Occult Blood Negative Urine Nitrite Negative Urine Bilirubin Negative Urine Urobilinogen 1 H Ur Leukocyte Esterase 25 H Urine RBC 0 SEEN Urine WBC 0-5 SEEN Ur Squamous Epith Cells 5-10 SEEN Calcium Oxalate Crystal 1+ Urine Bacteria 1+ Urine Mucus 0 SEEN Discharge Plan Triage Chief Complaint: Flank Pain ED Provider: Babak Whitaker Dx/Rx/DC Orders Prescriptions: No Action norethindrone (contraceptive) [Stephanie] 0.35 mg tablet 0.35 mg PO QDAY Qty: 28 3RF omeprazole 40 mg capsule,delayed release(DR/EC) See Rx Instructions .ROUTE .COMPLEX Qty: 90 0RF Dose Instruction: 40 MG ORALLY DAILY Rx Instructions: 40 MG ORALLY DAILY sertraline 100 mg tablet 100 mg PO DAILY Qty: 30 0RF Primary Care Provider: Mina Vu Referrals: Mina Vu MD [Primary Care Provider] -
[2023-09-28 21:04] LABS: Mucous, Urine 0 SEEN /hpf (<or=2+); Red Blood Cells-Urine 0 SEEN /hpf (0-5)
[2023-09-28 21:06] LABS: Color, Urine Yellow (Yellow); Glucose, Dipstick Normal (Normal); Ketone-Dipstick 5 mg/dl (Negative); Leukocyte Esterase-Dipstick 25 /ul (Negative); Nitrite-Dipstick Negative (Negative); Occult Blood-Urine Negative /ul (Negative); Protein-Dipstick 30 mg/dl (Negative); Specific Gravity, Urine 1.025 (1.002-1.030); Urine Bilirubin Dipstick Negative (Negative); Urine Clarity Clear (Clear); Urine Urobilinogen 1 mg/dl (Normal)
[2023-09-28 21:11] LABS: Anion Gap 7 (5-15); BUN 14 mg/dL (7-18); Calcium,Total 9.5 mg/dL (8.5-10.1); Chloride 106 mmol/L (98-107); Creatinine, Serum 0.94 mg/dL (0.55-1.02); EST Glomerular Filtration Rate 77 mL/min (>60); Est Glom Filt Rate - Afr Amer 93 mL/min (>60); Estimated Creatinine Clearance 96.77 ml/min; Glucose 100 mg/dL (74-106); Potassium 3.7 mmol/L (3.5-5.1); Sodium Level 138 mmol/L (136-145)
[2023-09-28 21:13] LABS: Internal QC Validated? YES +Cl - CLEAR BKGD; Pregnancy, Serum, hCG Quali. NEGATIVE Negative
--- NOTE | 2023-09-28 21:15 | CT_ITS ---
INDICATION: Kidney Stone EXAMINATION: CT ABDOMEN AND PELVIS WITHOUT CONTRAST - CT Abdomen And Pelvis W/O Contrast Injection TECHNIQUE: Helically acquired images were obtained of the abdomen and pelvis without oral or IV contrast. A radiation dose optimization technique was used for this scan. IV Contrast dosage and agent: None. Oral contrast: None. COMPARISON: October 12, 2013. FINDINGS: LOWER CHEST: Lung bases are clear. No cardiomegaly or pericardial effusion. LIVER: Homogeneous with mild hepatomegaly. No focal mass. GALLBLADDER AND BILIARY TREE: No calcified gallstones. No gallbladder distension or wall edema. No intra- or extrahepatic biliary ductal dilation. PANCREAS: No focal cystic or solid mass. SPLEEN: Normal size without focal cystic or solid mass. ADRENAL GLANDS: No nodules. KIDNEYS AND URETERS: Normal renal size and position. No hydronephrosis. PERITONEUM: No ascites or free air. No other fluid collection. BOWEL: No acute gastric finding. No small bowel distention or focal wall thickening. Normal appendix. No acute colonic finding. . LYMPH NODES: No enlarged mesenteric or retroperitoneal lymph nodes. VESSELS: Aorta is non-dilated. URINARY BLADDER: Unremarkable. REPRODUCTIVE ORGANS: Unremarkable uterus and adnexa. ABDOMINAL WALL: Small fat-containing umbilical hernia without inflammation. No discrete abdominal or pelvic wall hernia. BONES: No lytic or blastic abnormality. Small posterior disc protrusion L4-5 and L5-S1 with mild spinal canal narrowing. CT/Abdomen/Pelvis without Cont IMPRESSION: No nephrolithiasis or evidence of obstructive uropathy. Small lower lumbar posterior disc protrusions with mild spinal canal narrowing. Electronically Signed: Chemo King MD at 22:31 EST ,
[2023-09-28 21:21] LABS: Bacteria 1+ /hpf (None Seen); Calcium Oxalate Crystals Ur 1+ /hpf (<or=2+); Squamous Epithelial Cells - UA 5-10 SEEN /hpf (5-10); White Blood Cells 0-5 SEEN /hpf (0-5)
--- OUTSIDE RECORDS SUMMARY | 2023-09-28 21:24 | XMS RPT_ITS | CCD ---
Author Name Unknown Address [address] [place] [address] Organization [facility] Care Team Providers Care Membership Coordinator Name Role Phone Ishmael Vu MD Unavailable Mirella Efewongbe B Primary Care Provider ALDAIR WRIGHT, DR BRIAN Mehta Primary Care Physician Ishmael Vu MD Primary Care Provider [phone] Ishmael Vu MD Primary Care Provider [phone] Mirella Efewongbe B Primary Care Provider Mirella Efewongbe B Primary Care Provider MIRELLA, EFEWONGBE B Primary Care Unavailable YAHAIRA RAMOS Attending Unavailable OLEGHE, EFEWONGBE B Primary Care Unavailable BENNY RYAN Attending Unavailabl e GURDEEP PENNY S Referring Unavailable OLEGHE, EFEWONGBE B Primary Care Unavailable AZZAM, RAED H Admitting Unavailable AZZAM, RAED H Attending Unavailable MACKENZIE, PENNY S Referring Unavailable OLEGHE, EFEWONGBE B Primary Care Unavailable MACKENZIE, PENNY S Referring Unavailable OLEGHE, EFEWONGBE B Primary Care Unavailable OLEGHE, EFEWONGBE B Primary Care Unavailable NITZ, GONZÁLEZ Admitting Unavailable NITZ, GONZÁLEZ Attending Unavailable NITZ, GONZÁLEZ Referring Unavailable Oleghe, Efewongbe B Primary Care Provider OLEGHE, EFEWONGBE Primary Care Unavailable JASON BERNARDO Attending Unavailable LYRICROTT, TONI Admitting Unavailable OLEGHE, EFEWONGBE Primary Care Unavailable INKROTT, TONI Attending Unavailable OLEGHE, EFEWONGBE Primary Care Unavailable OLEGHE, EFEWONGBE Primary Care Unavailable INKROTT, TONI Attending Unavailable OLEGHE, EFEWONGBE Primary Care Unavailable INKROTT, TONI Attending Unavailable OLEGHE, EFEWONGBE Primary Care Unavailable INKROTT, TONI Attending Unavailable INKROTT, TONI Attending Unavailable OLEGHE, EFEWONGBE Primary Care Unavailable INKROTT, TONI Referring Unavailable OLEGHE, EFEWONGBE Primary Care Unavailable INKROTT, TONI Attending Unavailable OLEGHE, EFEWONGBE Primary Care Unavailable INKROTT, TONI Referring Unavailable INKROTT, TONI Attending Unavailable INKROTT, TONI Attending Unavailable INKROTT, TONI Referring Unavailable OLEGHE, EFEWONGBE Primary Care Unavailable INKROTT, TONI Referring Unavailable INKROTT, TONI Attending Unavailable OLEGHE, EFEWONGBE B Primary Care Unavailable ARETHA DENIS Attending Unavailable OLEGHE, EFEWONGBE B Primary Care Unavailable PENNY SKY Referring Unavailable OLEGHE, EFEWONGBE B Primary Care Unavailable PENNY SKY Attending Unavailable OLEGHE, EFEWONGBE B Primary Care Unavailable PENNY MACKENZIE Referring Unavailable OLEGHE, EFEWONGBE B Primary Care Unavailable PENNY MACKENZIE Attending Unavailable MILLY LOCKWOOD Referring Unavailable OLEGHE, EFEWONGBE B Primary Care Unavailable OLEGHE, EFEWONGBE B Primary Care Unavailable PENNY SKY Attending Unavailable PENNY SKY Referring Unavailable OLEGHE, EFEWONGBE B Primary Care Unavailable ARIEL ROMO Attending Unavailable Allergies Allergy Classification Reported Allergen(s) Allergy Type Date of Onset Reaction(s) Facility Contrast Media (1 source) Contrast media Substance Allergy 8 Hives [facility]io[facility]on[facility] (2 sources) Codeine Drug Allergy 7 Hives, Itching [facility] (20 sources) Codeine; Translations: [codeine] Drug Allergy 7 [facility] (20 sources) Contrast media; Translations: [RED DYE] Drug allergy 8 Hives [facility] (20 sources) Morphine; Translations: [morphine] Drug Allergy 8 Hives, Itching [facility] (20 sources) Acetaminophen / oxyCODONE; Translations: [OXYCODONE-ACETAM INOPHEN] Drug Allergy [address] [facility] (13 sources) guaiFENesin / HYDROmorphone; Translations: [DILAUDID COUGH] Drug Allergy 3 Hives, Other: See Comments [facility] (9 sources) HYDROmorphone Drug Allergy 3 [facility] Medications Current Medications Medication Drug Class(es) Dates Sig (Normalized) Sig (Original) benoxinate hydrochloride 4 mg/ml / fluorescein sodium 2.5 mg/ml ophthalmic solution (1 source) Diagnostic Dye Start: 11-28-2022 End: 12-09-2022 fluorescein-benox inate 0.25-0.4 % 1 Drop (FLURESS) busPIRone hydrochloride 7.5 mg oral tablet (11 sources) Start: 08-22-2018 End: 08-25-2022 take 1 tablet by mouth in the morning busPIRone (Buspar) 7.5 MG tablet Take 7.5 mg by mouth in the morning and 7.5 mg in the evening. 0 08/22/2018 Active Completed/Discontinued Medications Medication Drug Class(es) Dates Sig (Normalized) Sig (Original) acetaminophen 500 mg oral tablet (8 sources) Start: 11-24-2022 take 2 tablets by mouth every eight hours as needed acetaminophen (TYLENOL) 500 mg tablet Take 2 tablets by mouth every 8 hours as needed for pain. 60 tablet 0 11/24/2022 Active Problems Active Problems Problem Classification Problem Date Documented Da te Episodic/Chronic Abdominal pain (1 source) Abdominal pain 04-22-2015 Episodic Anxiety disorders (20 sources) Anxiety state; Translations: [Generalized anxiety disorder] Onset: 09-02-2015 Chronic Epilepsy; convulsions (20 sources) Epilepsy, not refractory; Translations: [Epilepsy, unspecified, not intractable, without status epilepticus] Onset: 10-02-2018 10-02-2018 Chronic Fluid and electrolyte disorders (1 source) Hypokalemia; Translations: [Hypokalemia] Onset: 11-20-2021 Episodic Headache; including migraine (20 sources) Migraine; Translations: [Migraine, unspecified, not intractable, without status migrainosus] Onset: 09-06-2018 10-02-2018 Chronic Headache; including migraine (1 source) Headache; including migraine; Translations: [Nonintractable headache, unspecified chronicity pattern, unspecified headache type] Onset: 11-24-2022 Inflammation; infection of eye (except that caused by tuberculosis or sexually transmitteddisease) (5 sources) Optic neuritis; Translations: [Unspecified optic neuritis] Onset: 08-27-2022 Chronic Mood disorders (20 sources) Major depressive disorder; Translations: [Major depressive disorder, single episode, unspecified] Onset: 09-02-2015 Chronic Other eye disorders (3 sources) Optic disc edema; Translations: [Unspecified papilledema] Chronic Other eye disorders (4 sources) Unspecified papilledema; Translations: [Unspecified papilledema] Onset: 08-27-2022 Chronic Other eye disorders (3 sources) Optic disc disorder; 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, 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 Other eye disorders (1 source) Other disorders of optic disc, bilateral; 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, bilateral] Onset: 12-22-2022 Chronic Other female genital disorders (1 source) Abnormal uterine bleeding; Translations: [Other specified abnormal uterine and vaginal bleeding] Chronic Other female genital disorders (1 source) Other specified abnormal uterine and vaginal bleeding; Translations: [DUB (dysfunctional uterine bleeding)] Onset: 03-12-2022 Chronic Other nervous system disorders (20 sources) Chronic pain syndrome; Translations: [Chronic pain syndrome] Onset: 09-02-2015 09-08-2018 Chronic Other nervous system disorders (5 sources) Benign intracranial hypertension; Translations: [Benign intracranial hypertension] Chronic Other nervous system disorders (3 sources) Benign intracranial hypertension; Translations: [IIH (idiopathic intracranial hypertension)] Onset: 08-27-2022 Chronic Other and delivery including normal (1 source) test positive; Translations: [Encounter for test, result positive] Episodic Syncope (1 source) Near syncope; Translations: [Syncope and collapse] Episodic Unclassified (1 source) No current problems or disability 06-22-2017 Unclassified (2 sources) Post-op; Translations: [Post-op] Onset: 12-08-2022 Unclassified (2 sources) R leg numbness (post op problem) Onset: 09-23-2022 Unclassified (1 source) Low back pain, unspecified; Translations: [Low back pain, unspecified] Onset: 05-09-2022 Past or Other Problems Problem Classification Problem Date Documented Date Episodic/Chronic Blindness and vision defects (2 sources) Localized visual field defect; Translations: [Other localized visual field defect, bilateral] Onset: 11-29-2022 Episodic Contraceptive and procreative management (12 sources) Patient encounter status; Translations: [Encounter for other general counseling and advice on contraception] Onset: 09-08-2018 09-08-2018 Episodic Epilepsy; convulsions (20 sources) Seizure; Translations: [Unspecified convulsions] Onset: 09-06-2018 Episodic Other aftercare (2 sources) Encounter for follow-up examination after completed treatment for conditions other than malignant neoplasm; Translations: [Encounter for follow-up examination after completed treatment for conditions other than malignant neoplasm] Onset: 09-22-2022 Episodic Other connective tissue disease (2 sources) Other symptoms and signs involving the musculoskeletal system; Translations: [Other symptoms and signs involving the musculoskeletal system] Onset: 07-28-2022 Episodic Other eye disorders (1 source) Ocular pain, bilateral; Translations: [Eye pain, bilateral] Onset: 11-24-2022 Episodic Other injuries and conditions due to external causes (12 sources) At risk for falls ; Translations: [History of falling] Onset: 09-05-2018 09-06-2018 Episodic Residual codes; unclassified (1 source) Personal history of other specified conditions; Translations: [History of seizure] Onset: 11-24-2022 Episodic Spondylosis; intervertebral disc disorders; other back problems (20 sources) Pain in right sacroiliac joint; Translations: [Sacrococcygeal disorders, not elsewhere classified] Onset: 03-18-2020 03-18-2020 Episodic Unclassified (1 source) Low back pain, unspecified; Translations: [Low back pain, unspecified] Onset: 09-14-2022 Results Test Name Value Interpretation Reference Range Facil ity Vital Signs Date Time Vital Sign Value Performing Clinician Facility 02-23-2023 10:48-0400 Body height 160 cm Toni Vallejo MD Work Phone: [facility] 02-23-2023 10:48-0400 Body mass index (BMI) [Ratio] 34.01 kg/m2 Toni Vallejo MD Work Phone: [facility] 02-23-2023 10:48-0400 Body weight 87.09 kg Toni Valleoj MD Work Phone: [facility] 01-20-2023 10:00-0400 Body height 160 cm Benny Ryan MD Work Phone: [facility] 01-20-2023 10:00-0400 Body weight 92.99 kg Benny Ryan MD Work Phone: [facility] 01-20-2023 10:00-0400 Diastolic blood pressure 82 mm[Hg] Benny Ryan MD Work Phone: [facility] 01-20-2023 10:00-0400 Heart rate 64 /min Benny Ryan MD Work Phone: [facility] 01-20-2023 10:00-0400 Respiratory rate 18 /min Benny Ryan MD Work Phone: [facility] 01-20-2023 10:00-0400 Systolic blood pressure 120 mm[Hg] Benny Ryan MD Work Phone: [facility] 12-22-2022 11:10-0400 SaO2% (BldA) [Mass fraction] 100 % González Nitz RESPIRATORY CARE TECHNICIAN.SALES RESEARCH ANALYST Work Phone: [facility] 12-22-2022 11:00-0400 Diastolic blood pressure 77 mm[Hg] González Nitz RESPIRATORY CARE TECHNICIAN.SALES RESEARCH ANALYST Work Phone: [facility] 12-22-2022 11:00-0400 Systolic blood pressure 115 mm[Hg] González Nitz RESPIRATORY CARE TECHNICIAN.SALES RESEARCH ANALYST Work Phone: [facility] 12-22-2022 10:30-0400 Respiratory rate 16 /min González Nitz RESPIRATORY CARE TECHNICIAN.SALES RESEARCH ANALYST Work Phone: [facility] 12-22-2022 09:11-0400 Body height 160 cm González Nitz RESPIRATORY CARE TECHNICIAN.SALES RESEARCH ANALYST Work Phone: [facility] 12-22-2022 09:11-0400 Body temperature 97.5 [degF] González Nitz RESPIRATORY CARE TECHNICIAN.SALES RESEARCH ANALYST Work Phone: [facility] 12-22-2022 09:11-0400 Body weight 93.89 kg González Nitz RESPIRATORY CARE TECHNICIAN.SALES RESEARCH ANALYST Work Phone: [facility] 12-22-2022 09:11-0400 Heart rate 63 /min González Nitz RESPIRATORY CARE TECHNICIAN.SALES RESEARCH ANALYST Work Phone: [facility] 08-25-2022 12:48-0500 Body height 160 cm Penny Mackenzie MD Work Phone: [facility] 08-25-2022 12:48-0500 Body weight 77.11 kg Penny Mackenzie MD Work Phone: [facility] 08-25-2022 12:48-0500 Diastolic blood pressure 84 mm[Hg] Penny Mackenzie MD Work Phone: [facility] 08-25-2022 12:48-0500 Heart rate 89 /min Penny Mackenzie MD Work Phone: [facility] 08-25-2022 12:48-0500 Systolic blood pressure 124 mm[Hg] Penny Mackenzie MD Work Phone: [facility] 03-12-2022 16:25-0400 Body height 160 cm Yahaira Biats DO Work Phone: [facility] 03-12-2022 16:25-0400 Body weight 79.56 kg Yahaira Biats DO Work Phone: [facility] 03-12-2022 16:25-0400 Diastolic blood pressure 80 mm[Hg] Yahaira Biats DO Work Phone: [facility] 03-12-2022 16:25-0400 Systolic blood pressure 121 mm[Hg] Yahaira Biats DO Work Phone: [facility] 11-20-2021 21:30-0400 Diastolic blood pressure 58 mm[Hg] JOSELYN REICHFIELD DO [facility] 11-20-2021 21:30-0400 Heart rate 82 /min JOSELYN REICHFIELD DO [facility] 11-20-2021 21:30-0400 Mean blood pressure 75 mm[Hg] JOSELYN REICHFIELD DO [facility] 11-20-2021 21:30-0400 Respiratory rate 16 /min JOSELYN REICHFIELD DO [facility] 11-20-2021 21:30-0400 Systolic blood pressure 110 mm[Hg] JOSELYN REICHFIELD DO [facility] 11-20-2021 20:30-0400 Diastolic blood pressure 53 mm[Hg] JOSELYN REICHFIELD DO [facility] 11-20-2021 20:30-0400 Heart rate 84 /min JOSELYN REICHFIELD DO [facility] 11-20-2021 20:30-0400 Mean blood pressure 67 mm[Hg] JOSELYN REICHFIELD DO [facility] 11-20-2021 20:30-0400 Respiratory rate 16 /min JOSELYN REICHFIELD DO [facility] 11-20-2021 20:30-0400 Systolic blood pressure 94 mm[Hg] JOSELYN REICHFIELD DO [facility] 11-20-2021 18:29-0400 Diastolic blood pressure 87 mm[Hg] JOSELYN REICHFIELD DO [facility] 11-20-2021 18:29-0400 Heart rate 101 /min JOSELYN REICHFIELD DO [facility] 11-20-2021 18:29-0400 Respiratory rate 15 /min JOSELYN REICHFIELD DO [facility] 11-20-2021 18:29-0400 Systolic blood pressure 119 mm[Hg] JOSELYN REICHFIELD DO [facility] 11-20-2021 17:46-0400 Body temperature 99.14 [degF] JOSELYN REICHFIELD DO [facility] 11-20-2021 17:46-0400 Body weight 77.1 kg JOSELYN REICHFIELD DO [facility] 11-10-2020 13:04-0400 Diastolic blood pressure 65 mm[Hg] Varun Horn MD Work Phone: [facility] Work Phone: 11-10-2020 13:04-0400 Heart rate 80 /min Varun Horn MD Work Phone: [facility] Work Phone: 11-10-2020 13:04-0400 SaO2% (BldA) [Mass fraction] 100 % Varun Horn MD Work Phone: [facility] Work Phone: 11-10-2020 13:04-0400 Systolic blood pressure 112 mm[Hg] Varun Horn MD Work Phone: [facility] Work Phone: 11-10-2020 12:40-0400 Respiratory rate 14 /min Varun Horn MD Work Phone: [facility] Work Phone: 11-10-2020 10:21-0400 Body height 160 cm Varun Horn MD Work Phone: [facility] Work Phone: 11-10-2020 10:21-0400 Body mass index (BMI) [Ratio] 34.9 kg/m2 Varun Horn MD Work Phone: [facility] Work Phone: 11-10-2020 10:21-0400 Body temperature 97.7 [degF] Varun Horn MD Work Phone: [facility] Work Phone: 11-10-2020 10:21-0400 Body weight 89.36 kg Varun Horn MD Work Phone: [facility] Work Phone: Encounters Encounter Date Encounter Type Care Provider Facility Start: 07-27-2023 End: 07-27-2023 [facility] Start: 02-23-2023 End: 02-23-2023 ambulatory [facility] Start: 02-23-2023 End: 02-23-2023 Office outpatient visit 25 minutes Toni Vallejo MD Work Phone: [facility] Procedures Date Procedure Procedure Detail Performing Clinician Start: 12-22-2022 Diagnostic lumbar sp inal puncture w/fluor or ct Aretha Denis PA-C Work Phone: Start: 12-22-2022 Cell count misc body fluids w/differential count Penny Sky MD Work Phone: Start: 12-22-2022 CSF MANUAL DIFF Penny guzman MD Work Phone: Start: 12-22-2022 Protein total xcpt refractometry oth src Penny Sky MD Work Phone: Start: 11-29-2022 Oph us dx b-scan&alex n a-scan sm pt enctr Penny Sky MD Work Phone: Start: 11-29-2022 End: 11-29-2022 Visual field xm uni/bi w/interp extended exam Penny Sky MD Work Phone: Start: 11-10-2020 Us preg uterus real time w/image dcmtn transvag Varun Horn MD Work Phone: Start: 11-10-2020 ADD ON LAB TEST Varun Horn MD Work Phone: Start: 11-10-2020 Comprehensive metabo lic panel Varun Horn MD Work Phone: Start: 11-10-2020 Ecg routine ecg w/le ast 12 lds w/i&r Varun Horn MD Work Phone: Start: 01-13-2015 Diagnostic laparoscopy JOSELYN JO DO Plan of Treatment Date Care Activity Detail Author Start: 02-21-2048 Zoster Vaccines (1 of 2) Zoster Vaccines (1 of 2) [employer] Start: 12-14-2023 End: 02-13-2024 Angiotensin converting enzyme [Enzymatic activity/volume] in Cerebral spinal fluid ANGIOTEN CON ENZ, CSF Lab Routine Elevation of optic disc, bilateral IIH (idiopathic intracranial hypertension) Expected: 12/14/2023, Expires: 02/13/2024 [facility] Work Phone: Immunizations Immunization Date Immunization Notes Care Provider Fa bisi 04-28-2020 influenza, seasonal, injectable, preservative free Yahaira Ramos DO Work Phone: [facility] 04-28-2020 influenza virus vacc ine, unspecified formulation Toni Vallejo MD Work Phone: [facility] 03-15-2016 Human Papillomavirus 9-valent vaccine Yahaira Ramos DO Work Phone: [facility] 03-15-2016 HPV, unspecified formulation Toni Vallejo MD Work Phone: [facility] 03-08-2016 meningococcal oligosaccharide (groups A, C, Y and W-135) diphtheria toxoid conjugate vaccine (MCV4O) Yahaira Ramos DO Work Phone: [facility] 04-21-2011 tetanus toxoid, redu edy diphtheria toxoid, and acellular pertussis vaccine, adsorbed Yahaira Ramos DO Work Phone: [facility] 04-21-2011 varicella virus vaccine Kee miriam Ramos DO Work Phone: [facility] 03-26-2003 diphtheria, tetanus toxoids and acellular pertussis vaccine, unspecified formulation Yahaira Ramos DO Work Phone: [facility] 03-26-2003 hepatitis B vaccine, pediatric or pediatric/adolescent dosage Yahaira Ramos DO Work Phone: [facility] 03-26-2003 measles, mumps and r ubella virus vaccine Yahaira Ramos DO Work Phone: [facility] 03-26-2003 trivalent poliovirus vaccine, live, oral Yahaira Ramos DO Work Phone: [facility] 08-27-1999 diphtheria, tetanus toxoids and acellular pertussis vaccine, unspecified formulation Yahaira Ramos DO Work Phone: [facility] 08-27-1999 trivalent poliovirus vaccine, live, oral Yahaira Ramos DO Work Phone: [facility] 07-09-1999 trivalent poliovirus vaccine, live, oral Yahaira Ramos DO Work Phone: [facility] 06-24-1999 measles, mumps and r ubella virus vaccine Yahaira Rmaos DO Work Phone: [facility] 03-03-1999 varicella virus vaccine Kee d Bihemant DO Work Phone: [facility] 1998 diphtheria, tetanus toxoids and acellular pertussis vaccine, unspecified formulation Yahaira Bihemant DO Work Phone: [facility] 1998 haemophilus influenz ae type b vaccine, conjugate unspecified formulation Yahaira Biats DO Work Phone: [facility] 1998 hepatitis B vaccine, pediatric or pediatric/adolescent dosage Yahaiar Biats DO Work Phone: [facility] 1998 diphtheria, tetanus toxoids and acellular pertussis vaccine, unspecified formulation Yahaira Biats DO Work Phone: [facility] 1998 haemophilus influenz ae type b vaccine, conjugate unspecified formulation Yahaira Biats DO Work Phone: [facility] 1998 poliovirus vaccine, inactivated Yahaira Bihemant DO Work Phone: [facility] 1998 diphtheria, tetanus toxoids and acellular pertussis vaccine, unspecified formulation Yahaira Biats DO Work Phone: [facility] 1998 haemophilus influenz ae type b vaccine, conjugate unspecified formulation Yahaira Biats DO Work Phone: [facility] 1998 hepatitis B vaccine, pediatric or pediatric/adolescent dosage Yahaira Biats DO Work Phone: [facility] 1998 poliovirus vaccine, inactivated Yahaira Ramos DO Work Phone: [facility] 1998 hepatitis B vaccine, pediatric or pediatric/adolescent dosage Yahaira Biats DO Work Phone: [facility] Payers Date Payer Category Payer Medicaid [id number] 2018 Medicaid [id number] 2018 Unknown [id number] Social History Date Type Detail Facility Start: 11-10-2020 End: 01-20-2023 Tobacco smoking status NHIS Former smoker [facility] Work Phone: End: 01-22-2005 History of tobacco use Current smoker [facility] End: 01-22-2005 History of tobacco use Cigarette Smoker [facility] Start: 11-10-2020 End: 09-07-2022 Tobacco use and exposure Never used [facility] Start: 2000 Sex Assigned At Not on file [facility] Work Phone: Start: 11-28-2022 End: 01-04-2023 Exposure to SARS-CoV-2 (event) Not sure [facility] Sex Assigned At Sex [facility] Start: 10-23-2020 End: 09-07-2022 Tobacco smoking status NHIS Never smoked tobacco [facility] Start: 03-12-2022 Alcohol intake Current non-dr edge inker uppers of alcohol (finding) [facility] Start: 09-05-2018 Tobacco Comment vapes every no w and then [facility] Start: 02-02-2022 End: 02-12-2022 Exposure to SARS-CoV-2 (event) Unable to assess [facility] Start: 08-25-2022 End: 09-22-2022 Alcohol intake Current drinker of alcohol (finding) [facility] Start: 08-25-2022 Education [address] [facility] Start: 08-25-2022 Tobacco Comment Former vape user [facility] Start: 08-25-2022 Alcohol Comment Less than once a wee k [facility] Start: 11-24-2022 Tobacco smoking stat us GAIS Smokes tobacco daily [facility] Start: 11-24-2022 Tobacco Comment Vape user [facility] Start: 09-14-2022 History SDOH IPV Fear 2 [facility] Start: 09-07-2022 Alcohol Comment occas [facility] Start: 09-14-2022 End: 09-22-2022 History of Social function [facility] Start: 09-14-2022 End: 09-22-2022 Humiliation, Afraid, Rape, and Kick questionnaire [HARK] [facility] Within the last year , have you been afraid of your partner or ex-partner? No [facility] Status Date Assessment Result Facility [facility]-20-2021 [facility] Mental Status Date Assessment Result Facility 11-20-[facility]21 [facility] 11-20-2021 to 07-27-2023 Toni Vallejo MD - 02/23/2023 10:45 AM EDTTelephone Encounter - Chrissie Yen MA - 02/17/2023 12:19 PM EDTTelephone Encounter - Chrissie Yen MA - 02/17/2023 12:19 PM EDTPatient Instructions Note Date & Type Note Facility 07-27-2023 Note HNO ID: [id number] Author: Dickson Buchanan APRN.SALES RESEARCH ANALYST Service: ? Author Type: Nurse Practitioner Type: Progress Notes Filed: 07/27/2023 12:54 PM Note Text: Subjective HPI Nontoxic-appearing female presents urgent care chief complaint vomiting chills. Duration of symptoms 2 days. Associated symptoms listed above. Most bothersome symptom today is fatigue vomiting. Vomited 4 times today. Is able to drink some water. Has not vomited since drinking some water. Sick contacts work similar signs and symptoms. Has not used any OTC medications. Has transient abdominal pain. No pain currently. Denies any fevers productive cough chest pain shortness of breath pleuritic pain hemoptysis change in bowel or bladder habits. Past medical history prescription medications allergies reviewed. .Patient presents with: Vomiting: Vomiting and chills x 2 days PAST MEDICAL HISTORY Diagnosis Date Acid reflux Endometriosis age 11 Fibromyalgia a freshman in high school IIH (idiopathic intracranial hypertension) Lumbar herniated disc Migraines age 4 Papilledema PAST SURGICAL HISTORY Procedure Laterality Date PAST SURGICAL HISTORY OF laparoscopy ALLERGIES Dilaudid Cough, Morphine, Percocet [Oxycodone-Acetaminophen], Red Dye, and Tylenol #3 [Codeine] MEDICATIONS divalproex ER (DEPAKOTE ER) 500 mg 24 hr tablet Take 1 tablet by mouth daily at bedtime for 21 days. Then STOP. lamoTRIgine (LAMICTAL) 25 mg tablet Wk 1: 1 tab in pm. Wk 2: 1 tab in am AND 1 tab in pm. Wk 3: 1 tab in am AND 2 tabs in pm. Wk 4: 2 tabs in am AND 2 tabs in pm. Wk 5: 2 tabs in am AND 3 tabs in pm. Wk 6: 3 tabs in am AND 3 tabs in pm. Wk 7: 3 tabs in am AND 4 tabs in pm. Wk 8: switch to the 100 mg tablet and take 100 mg twice daily. lamoTRIgine (LAMICTAL) 100 mg tablet Take 1 tablet by mouth twice daily. Start on week 8 of the titration on 03/31/2023. acetaminophen (TYLENOL) 500 mg tablet Take 2 tablets by mouth every 8 hours as needed for pain. labetalol (TRANDATE) 100 mg tablet Take 50 mg by mouth twice daily. methocarbamol (ROBAXIN) 750 mg tablet Take 375 mg by mouth twice daily. amitriptyline (ELAVIL) 100 mg tablet Take 1 tablet by mouth daily at bedtime. FAMILY HISTORY Problem Relation Age of Onset other (obese) Sister Fibromyalgia Maternal Grandmother other (carpal tunnel) Maternal Grandmother other (acid reflux) Maternal Grandmother Cancer Maternal Grandfather Cancer Paternal Grandmother Cancer Paternal Grandfather Multiple Sclerosis No Family History Social History Tobacco Use Smoking status: Former Types: Cigarettes Smokeless tobacco: Never Tobacco comments: Vape user Vaping Use Vaping Use: current everyday user Substance Use Topics Alcohol use: Yes Comment: Less than once a week Drug use: No BP 104/64 Pulse 84 Temp 36.9 ?C (98.5 ?F) (Tympanic) Resp 18 Wt 92.3 kg (203 lb 6.4 oz) LMP (LMP Unknown) SpO2 95% BMI 36.03 kg/m? Review of Systems Constitutional: Positive for chills and malaise/fatigue. Negative for fever. HENT: Negative for congestion, ear discharge, ear pain, sinus pain and sore throat. Eyes: Negative for blurred vision, pain, discharge and redness. Respiratory: Negative for cough, hemoptysis, sputum production, shortness of breath, wheezing and stridor. Cardiovascular: Negative for chest pain. Gastrointestinal: Positive for abdominal pain and vomiting. Negative for diarrhea and nausea. Musculoskeletal: Negative for myalgias. Skin: Negative for itching and rash. Neurological: Negative for dizziness and headaches. Objective Physical Exam Constitutional: General: She is not in acute distress. Appearance: She is not diaphoretic. HENT: Head: Normocephalic. Jaw: No trismus, tenderness, swelling or pain on movement. Nose: Congestion present. Mouth/Throat: Mouth: Mucous membranes are moist. Pharynx: Oropharynx is clear. Uvula midline. No pharyngeal swelling, oropharyngeal exudate, posterior oropharyngeal erythema or uvula swelling. Eyes: Conjunctiva/sclera: Conjunctivae normal. Pupils: Pupils are equal, round, and reactive to light. Cardiovascular: Rate and Rhythm: Normal rate and regular rhythm. Heart sounds: Normal heart sounds. Pulmonary: Effort: Pulmonary effort is normal. No tachypnea, accessory muscle usage or respiratory distress. Breath sounds: Normal breath sounds. No stridor. No wheezing, rhonchi or rales. Abdominal: General: There is no distension. Palpations: Abdomen is soft. Tenderness: There is generalized abdominal tenderness. There is no guarding or rebound. Musculoskeletal: Cervical back: Normal range of motion and neck supple. No edema, erythema, rigidity or tenderness. No pain with movement. Normal range of motion. Lymphadenopathy: Cervical: No cervical adenopathy. Skin: General: Skin is warm and dry. Neurological: Mental Status: She is alert and oriented to person, (more content not included)... [facility] 02-23-2023 History of Present illness Narrative Images from the original note were not included. [facility] [address] [facility] [address] Dept: [phone] Dept Faisal [place] 2000 [phone] 02/23/2023 Problem List: MIS Right L5-S1 Laminectomy DOS 09/14/22 Lumbar radiculitis, improving Axial lower back pain, improving Diagnoses: (M54.50) Lumbar pain Chief Complaint Patient presents with Leg Pain Follow-up Back Pain HPI: Faisal is a 23 y.o. female who is here today for: PO L5-S1 Laminectomy DOS: 09/14/22 Current symptoms: Pain is located in the low back radiating to bilateral legs down the thighs to the knee. Reports left leg is worse than right leg Numbness/tingling: bilateral legs Weakness: right leg giving . Changes since surgery: Injection got denied - Rudy Aggravating factors: standing and walking Alleviating Factors: Laying down Current Treatment: L5-S1 Laminectomy gabapentin Review of Systems Musculoskeletal: Positive for arthralgias, back pain, gait problem and myalgias. Neurological: Positive for weakness and numbness. Allergies Allergen Reactions Codeine Hives Dilaudid [Hydromorphone] hives Morphine Hives and Itching Oxycodone-Acetaminophen Hives Red Dye Hives Current Outpatient Medications Medication Sig Dispense Refill amitriptyline (Elavil) 10 MG tablet Take 10 mg by mouth. busPIRone (Buspar) 7.5 MG tablet Take 7.5 mg by mouth in the morning and 7.5 mg in the evening. clonazePAM (KlonoPIN) 0.5 MG tablet Take 1 tablet by mouth for seizures greater than 3 minutes or for 3 or more seizures in 8 hours. Not to exceed 2 doses in 24 hours. gabapentin (Neurontin) 300 MG capsule Take 1 capsule (300 mg) by mouth 3 times daily. 90 capsule 0 medroxyPROGESTERone (Provera) 10 MG tablet TAKE 1 TABLET BY MOUTH EVERY DAY FOR 10 DAYS omeprazole (PriLOSEC) [address] capsule Take 40 mg by mouth daily. sertraline (Zoloft) 100 MG tablet Take 100 mg by mouth daily. methocarbamol (Robaxin) 750 MG tablet Take 1 tablet (750 mg) by mouth Nightly. (Patient not taking: Reported on 02/23/2023) 30 tablet 0 methylPREDNISolone (Medrol Dospak) 4 MG tablets Take by mouth as directed by package instructions (Patient not taking: Reported on 02/23/2023) 21 tablet 0 predniSONE (Deltasone) 20 MG tablet Take 40 mg by mouth daily. traMADol (Ultram) 50 MG tablet Take 25 mg by mouth in the morning and 25 mg in the evening. No current facility-administered medications for this visit. Past Medical History: Diagnosis Date Anxiety Depression Epilepsy (HCC) Seizures (CMS/HCC) (HCC) Past Surgical History: Procedure Laterality Date LAMINECTOMY AND MICRODISCECTOMY LUMBAR SPINE N/A 09/14/2022 L5/S1 LAPAROSCOPY ABDOMEN DIAGNOSTIC (HISTORICAL) Social History Socioeconomic History Marital status: Single Spouse name: Not on file Number of children: Not on file Years of education: Not on file Highest education level: Not on file Occupational History Not on file Tobacco Use Smoking status: Never Smokeless tobacco: Never Vaping Use Vaping Use: Former Substances: Nicotine, 8 yrs, quit few months ago Substance and Sexual Activity Alcohol use: Yes Comment: occas Drug use: Never Sexual activity: Not on file Other Topics Concern Not on file Social History Narrative Not on file Social Determinants of Health Financial Resource Strain: Not on file Food Insecurity: Not on file Transportation Needs: Not on file Physical Activity: Not on file Stress: Not on file Social Connections: Not on file Intimate Partner Violence: Not At Risk (09/14/2022) Humiliation, Afraid, Rape, and Kick questionnaire Fear of Current or Ex-Partner: No Emotionally Abused: No Physically Abused: No Sexually Abused: No Housing Stability: Not on file No family history on file. Physical Exam: Ht 5' 3 (1.6 m) Wt 192 lb (87.1 kg) BMI 34.01 kg/m SPINE/EXTREMITY: General: Posterior incision well-healed Lower Extremity Motor: 5/5 strength in all muscle groups Lower extremity sensation to light touch: L2 L3 L4 L5 S1 Right Intact Intact Intact Intact Diminished Left Intact Intact Intact Intact Intact Hip exam: Bilateral hip range of motion is full and symmetric without pain. Radiographic findings: Radiographs: Lumbar Spine: Date: 12/08/22 Views: 4 views (ap/lat/flex/ext) Findings: Please see radiology report for full interpretation. Mild degenerative disc disease at the L5/S1 level. No instability with flexion and extension. All documented radiology studies listed above were individually reviewed, interpreted (agree with radiology report unless noted below) and discussed with the patient during today's office visit. Postoperative MRI reviewed which does not reveal any residual neurologic compression. Mild L5/S1 degenerative disc disease. Lab Review: No labs were reviewed/no labs were available for review this visit. IMPRESSION: See problem list above. Faisal is a 23 y.o. female presenting with improving lower back pain status post MIS right L5-S1 Laminectomy DOS: 09/14/22. Since I last saw her, the patient is improving with respect to back and leg pain. I did certified credit counselor her that it is very important that she pursue a physical therapy program and core and hip strengthening. She voices understanding. We will see her back on an as-needed basis. PLAN: Physical therapy No follow-ups on file. Electronically signed by Toni Vallejo MD 02/23/2023 at 12:28 PM Dictated using [employer] Version 2.4 Proof read however unrecognized voice recognition errors may have occurred documented in this encounter [facility] 02-17-2023 Note Procedure request de nied, denial scanned into patients chart. [facility] 02-17-2023 Telephone encounter Note Procedure request denied, denial scanned into patients chart. [facility] 02-17-2023 Miscellaneous Notes Procedure request denied, denial scanned into patients chart. Submitted PA request to pts insurance, office will contact patient to schedule if approved Can offer fast-track RIGHT S1 TFESI. Noted Fast-track Right S1 TFESI Referral entered Please send to provider for review Patient called and notified that her MRI showed that she had normal scar tissue at the right S1 nerve. She is willing to try a right S1 TFESI as recommended by Dr. Vallejo. Please place an order for this for me to sign. documented in this encounter [facility] 02-09-2023 Note HNO ID: [id number] Author: Linda Rodriguez APRN.CNP Service: Neurology Adult Epilepsy Author Type: Nurse Practitioner Type: Progress Notes Filed: 02/09/2023 12:34 PM Note Text: Attestation signed by Silvia Tse MD at 02/09/2023 1:41 PM EPILEPSY CENTER ATTENDING NOTE [facility] Epilepsy Monitoring Unit Progress Note Date of Service: February 09, 2023 [facility] STAFF PHYSICIAN NOTE OF PERSONAL INVOLVEMENT IN CARE Patient was interviewed and examined by me on separate attending rounds this morning with nurse practitioner, Linda Rodriguez CNP. I have reviewed the history, exam, diagnosis, and plan obtained and documented by the nurse practitioner as above. I performed my own [id number] assessment and personally participated in the hernandez components. The following comments revise or confirm these. I have discussed the case and management of the patient's care with the care team. Clinical overnight update: No episodes. No complaints. Pertinent exam: Normal neurological examination Data reviewed: Continuous video EEG recording was personally reviewed by myself and the results of the evaluation to date are summarized below. Interictal findings: IS gen Ictal findings: none IMPRESSION: 22-year-old woman with evidence of generalized epilepsy based on interictal findings during EMU evaluation in 2019 presents to the EMU now to evaluate for nocturnal episodes (shaking, unawareness) of unclear etiology. Some of the symptoms are attributed to worsening stressors and anxiety by the patient. She is on Depakote 500 mg QHS. Previously tried 1000 mg QHS that caused nausea. Did not tolerate Zonisamide in the past (felt high). Discussed switching to Lamictal when in the EMU. Primary epileptologist: Dr. Ryan Admit Date: 02/07 AEDs Home: VPA ER 500 mg once daily Here: 02/07: stopped VPA ER 500 mg once daily 02/08: continue to hold VPA ER 500 mg once daily 02/09: continue to hold VPA ER 500 mg once daily PLAN: Continuous video-EEG monitoring continues Holding home anti-epileptic medications Plan to restart VPA ER 500 mg once daily on discharge with LTG titration to 50 mg BID then stopping VPA DR 500 mg BID and continuing titration of LTG to 100 mg BID Seizure precautions Rescue plan in place: 2mg of lorazepam (Ativan) IV as needed for prolonged motor epileptic seizure greater than 3 minutes and or 3rd motor epileptic seizure within 8 hours. Discharge planning tomorrow if stable overnight Follow-up after discharge with Dr. Ryan in 3 months The treatment plan was discussed in detail with the patient. Time for questions was given and answers were discussed. The patient agreed with the treatment plan. Silvia Tse MD Staff Physician [facility] Epilepsy Center Personal Pager and Cell Office: [phone] For urgent EEG review, call the Epilepsy Continuous Monitoring Unit (ECMU) at [facility] [phone] or [phone]. For overnight issues, 7pm [place] 7am, [place] [phone]. For in house night coverage of emergencies, call NPCS pager [phone]. NEUROLOGY EPILEPSY MONITORING UNIT (EMU) PROGRESS NOTE NIGHT AND WEEKEND COVERAGE: After 5 pm and over the weekends, please page [phone] to contact the epilepsy provider fondant machine operator Subjective No complaints. No seizures overnight. HOME ANTI EPILEPTIC DRUGS: VPA 1000 mg QHS ANTI EPILEPTIC DRUGS HERE: Objective 02/09/23 0921 02/09/23 0922 02/09/23 0923 02/09/23 0924 BP: Pulse: 89 91 91 91 Resp: 17 18 18 18 Temp: TempSrc: SpO2: 96% 95% 95% 95% Weight: Height: EKG, TELEMETRY, EEG, MONITORS AND ALARMS ARE ON: Yes ? Written order: Remains standing. SEIZURE DETECTION SOFTWARE ON: Yes ? outer diameter technician has been notified: Yes ? respiratory care specialist has been notified: Yes EXAM: Mental Status: Alert and oriented to person, place and time. Able to follow 1 and 2 step commands. Cranial Nerves: Pupils equal and reactive to light, extraocular muscles intact. No nystagmus, face symmetric. Motor: Moves all extremities equally. Sensation: Intact to light touch. Coordination: No dysmetria Exam otherwise unchanged. DATA: Diagnostic tests reviewed for today's visit: Most recent labs QUALITY CHECKLIST: Lines, Drains, and Airways None Reviewed lines and needs to be continued: REASONS: PRN IV SIEURE MEDICATION Current restraint orders: None Assessment AND Plan 22 year old Right handed female with evidence of generalized epilepsy based on interictal findings during EMU evaluation in 2019, presents with new nocturnal episodes of shaking of unclear etiology. Last occurred at the end of (more content not included)... [facility] 02-09-2023 Note HNO ID: [id number] Author: Angela Vargas RN Service: Care Management Author Type: Registered Nurse Type: Care Mgt Progress Note Filed: 02/09/2023 9:04 AM Note Text: CARE MANAGEMENT PROGRESS NOTE SERVICE DATE: 02/09/2023 SERVICE TIME: 9:03 AM LOS: 2 days Post-Acute Discharge Planning Patient Goal(s): General wellness, Be able to go home Spencer of Choice Explained: Discharge Planning Participant(s): Patient Patient/Family Comments: Anticipated # of Days Until Discharge: Transport at Discharge: Transportation Arrangements: Car Destination: Home Needs Prior to Discharge: Needs Prior to Discharge: To Be Determined, Discharge Prescriptions Post-Acute Discharge Plan: Patient from home with louis and his mother. IND BUFFING WHEEL FORMER MACHINE. Patient drove self to [facility]. Will drive self at discharge. Planned admission. No CM needs at this time. Will follow for transitional care planning. SIGNATURE: Angela Vargas RN PATIENT NAME: Faisal Alegria DATE: February 09, 2023 TIME: 9:03 AM PAGER/CONTACT #: [phone] [facility] 02-08-2023 Note HNO ID: [id number] Author: Angela Vargas RN Service: Care Management Author Type: Registered Nurse Type: Care Mgt Initial Assessment Filed: 02/08/2023 11:07 AM Note Text: CARE MANAGEMENT: ASSESSMENT AND DISCHARGE PLAN SERVICE DATE: February 08, 2023 SERVICE TIME: 11:05 AM PCP: Ishmael Vu MD Primary Contact: Extended Emergency Contact Information Primary Emergency Contact: Lilia Lee Relation: Friend Secondary Emergency Contact: JesusLevi Mobile Relation: Significant other Admission Status: Inpatient Insurance Provider: [employer] Discharge Planning requested by: Per Department Practice Potential Transition Plans No Services Indicated;Home Advance Directives Current Advance Directive: None Vest Finisher Attempted to Assist with AD Completion: Yes Action: Education Provided Current Living Arrangements and Support Lives with: Spouse/significant other, Other person(s) Fiance and mother in law Type of Residence: Private Residence (House) Does the patient have to climb stairs at home?: Yes;stairs outside the home;stairs within the home Support: Family members, Friends/neighbors, Spouse/significant other How do you manage to accomplish the following: Independent: Ambulation;Bathe/Shower;Dress;Meal s/Meal Prep;Going to the bathroom;Medication Management;Transportation to appointments/community Current Services/Equipment Current Post-Acute Service(s): None Discharge Planning Patient Goal(s): General wellness, Be able to go home Spencer of Choice Explained: Spencer of Choice Given: No Reason Not Given: No placements necessary Are you interested in bedside delivery of your medications? No Discharge Planning Participant(s): Patient Patient/Family Comments: Caregiver Assessment: Caregiver is ready, willing and able to meet the patient's needs as recommended by the inter-professional team: No Caregiver needed Transport at Discharge: Transportation Arrangements: Car Destination: Home Needs Prior to Discharge: Needs Prior to Discharge: To Be Determined;Discharge Prescriptions Post-Acute Discharge Plan: Spoke with patient. Patient lives with fiance and mother in law in a 2 story home. IND BUFFING WHEEL FORMER MACHINE. +Driving. -DME. Unemployed, filed for SSI but not yet approved. Uses [facility] for scripts. Drove self to hospital and will drive self at discharge. +PCP +RX -DME No CM needs at this time. Will follow for transitional care planning. SIGNATURE: Angela Vargas RN PATIENT NAME: Faisal Alegria DATE: February 08, 2023 TIME: 11:05 AM CONTACT #: [phone] [facility] 02-08-2023 Note HNO ID: [id number] Author: Linda Rodriguez APRN.CNP Service: Neurology Adult Epilepsy Author Type: Nurse Practitioner Type: Progress Notes Filed: 02/08/2023 11:10 AM Note Text: Attestation signed by Silvia Tse MD at 02/08/2023 1:44 PM EPILEPSY CENTER ATTENDING NOTE [facility] Epilepsy Monitoring Unit Progress Note Date of Service: February 08, 2023 [facility] STAFF PHYSICIAN NOTE OF PERSONAL INVOLVEMENT IN CARE Patient was interviewed and examined by me on separate attending rounds this morning with nurse practitioner, Linda Rodriguez CNP. I have reviewed the history, exam, diagnosis, and plan obtained and documented by the nurse practitioner as above. I performed my own [id number] assessment and personally participated in the hernandez components. The following comments revise or confirm these. I have discussed the case and management of the patient's care with the care team. Clinical overnight update: No episodes. No complaints. Pertinent exam: Normal neurological examination Data reviewed: Continuous video EEG recording was personally reviewed by myself and the results of the evaluation to date are summarized below. Interictal findings: IS gen Ictal findings: none IMPRESSION: 22-year-old woman with evidence of generalized epilepsy based on interictal findings during EMU evaluation in 2019 presents to the EMU now to evaluate for nocturnal episodes (shaking, unawareness) of unclear etiology. Some of the symptoms are attributed to worsening stressors and anxiety by the patient. She is on Depakote 500 mg QHS. Previously tried 1000 mg QHS that caused nausea. Did not tolerate Zonisamide in the past (felt high). Discussed switching to Lamictal when in the EMU. Primary epileptologist: Dr. Ryan Admit Date: 02/07 AEDs Home: VPA ER 500 mg once daily Here: 02/07: stopped VPA ER 500 mg once daily 02/08: continue to hold VPA ER 500 mg once daily PLAN: Continuous video-EEG monitoring continues Holding home anti-epileptic medications Plan to restart VPA ER 500 mg once daily on discharge with LTG titration to 50 mg BID then stopping VPA DR 500 mg BID and continuing titration of LTG to 100 mg BID Seizure precautions Rescue plan in place: 2mg of lorazepam (Ativan) IV as needed for prolonged motor epileptic seizure greater than 3 minutes and or 3rd motor epileptic seizure within 8 hours. Discharge planning pending capturing episodes of concern Follow-up after discharge with Dr. Ryan The treatment plan was discussed in detail with the patient. Time for questions was given and answers were discussed. The patient agreed with the treatment plan. Silvia Tse MD Staff Physician [facility] Epilepsy Center Personal Pager and Cell Office: [phone] For urgent EEG review, call the Epilepsy Continuous Monitoring Unit (ECMU) at [facility] [phone] or [phone]. For overnight issues, 7pm [place] 7am[place] [phone]. For in house night coverage of emergencies, call NPC[facility] pager [phone]. NEUROLOGY EPILEPSY MONITORING UNIT (EMU) PROGRESS NOTE NIGHT AND WEEKEND COVERAGE: After 5 pm and over the weekends, please page [phone] to contact the epilepsy provider fondant machine operator Subjective No complaints. No seizures overnight. HOME ANTI EPILEPTIC DRUGS: VPA 1000 mg QHS ANTI EPILEPTIC DRUGS HERE: Objective 02/07/23200202/07/23202302/08/23 0515 02/08/23 0935 BP: 128/81 114/70 105/63 109/61 Pulse: 81 70 71 110 Resp: 13 12 15 25 Temp: 36.6 ?C (97.8 ?F) 36.3 ?C (97.3 ?F) 36.7 ?C (98.1 ?F) TempSrc: Oral Temporal Temporal SpO2: 98% 98% 95% Weight: Height: EKG, TELEMETRY, EEG, MONITORS AND ALARMS ARE ON: Yes Written order: Remains standing. SEIZURE DETECTION SOFTWARE ON: Yes outer diameter technician has been notified: Yes respiratory care specialist has been notified: Yes EXAM: Mental Status: Alert and oriented to person, place and time. Able to follow 1 and 2 step commands. Cranial Nerves: Pupils equal and reactive to light, extraocular muscles intact. No nystagmus, face symmetric. Motor: Moves all extremities equally. Sensation: Intact to light touch. Coordination: No dysmetria Exam otherwise unchanged. DATA: Diagnostic tests reviewed for today's visit: Most recent labs QUALITY CHECKLIST: Lines, Drains, and Airways None Reviewed lines and needs to be continued: REASONS: PRN IV SIEURE MEDICATION Current restraint orders: None Assessment AND Plan 22 year old Right handed female with evidence of generalized epilepsy based on interictal findings during EMU evaluation in 2019, presents with new nocturnal episodes of shaking of unclear (more content not included)... [facility] 01-31-2023 Miscellaneous Notes Spoke with the patient and reiterated the purpose for EMU admission versus home EEG. Patient has opted to continue with EMU. REHANA OVIEDO RN Spoke with the patient and explained recommendation. She understands and will call back with decision. REHANA OVIEDO RN VEEG is still strongly preferred is at all possible because we can decrease and stop meds which we can not do at home. If it is absolutely not possible then home EEG is an option Linda Rodriguez APRN.CNP Patient is requesting home VEEG instead of EMU admission. REHANA OVIEDO RN documented in this encounter [facility] 01-21-2023 Miscellaneous Notes Patient can be reached at [phone] (home). Agree with recommendation Linda Rodriguez APRN.SOUTH Called patient and left vmm regarding Tramadol and side effects. Patient needs to call her PCP or prescriber. Left number for return call. REHANA OVIEDO RN General call : Full name of person calling: Faisal Dorantes Alegria Relationship to patient: self Phone # : [phone] Reason for call: Is EMU admit necessary if muscle spasms are caused by Tramadol.? Patient believes Tramadol is causing the muscle spasms at night. Please advise. Patient of Dr. Ryan documented in this encounter [facility] 01-20-2023 Note HNO ID: [id number] Author: Benny Ryan MD Service: ? Author Type: Physician Type: Progress Notes Filed: 01/20/2023 6:44 PM Note Text: [facility] Patient Name: Faisal ZUNIGA Date of : 2000 Referring Provider: Penny Mackenzie [address] [facility] [address] INITIAL EPILEPSY CLINIC NOTE 01/20/2023 10:00 AM CHIEF COMPLAINT: New Patient and Epilepsy HISTORY OF PRESENT ILLNESS Ms. Alegria is a 22 year old right-handed female seen in [facility] for initial consultation. There is no one accompanying the patient during today's visit. Handedness: right-handed Age of onset: 15 years Seizure History and Evolution Ms. Faisal Alegria is a 22 year old Right handed woman with history of headaches, unexplained falls, back pain s/p L5 S1 laminectomy for ?severe radiculopathy and epilepsy. She was previously seen by Dr. Velarde , last seen in 2019. 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 She felt heart rate drop and lost consciousness with shaking. Per chart review, she was seen in 2016 in Peds Neurology clinic for falls and leg pain. It was noted that her legs give out. Some of these symptoms were attributed to stressors. She was referred to psychiatry. She was seen by Dr. Velarde in 2019 for multiple different episode types including passing out at work, that she associates with headaches, her eyes becoming dark, face goes numb, tingling in lower extremities. In addition she also had nocturnal shaking episodes. With these concerns, she was referred to EMU in 2019 which showed polyspikes, and generalized spikes suggesting a diagnosis of generalized epilepsy. She also had an event of headache, vision symptoms and crying without EEG changes. She was originally started on Zonisamide but felt high-like so it was switched to Depakote. She cut the dose to half on her own due to nausea on 1000 mg QHS dose. She was previously on Lamictal for mood and has tolerated well. Recently she was evaluated for IIH, however no elevated opening pressure was noted on LP ( OP of 23). There was concern for papilledema on eye exam however it is now felt to be anatomical. No signs of optic neuritis based on evaluation at [facility] (Dr. Mackenzie). Total # of Current Anti-seizure Medications: Side Effects to Current Anti-seizure Medications: Seizure Frequency at First Visit: Longest Seizure-free Interval: CURRENT OUTPATIENT ANTISEIZURE MEDICATIONS (as of the start of the encounter) divalproex ER (DEPAKOTE ER) 500 mg 24 hr tablet (Taking) Take 2 tabs by mouth QHS. Prior Anti-seizure Therapies: Trial Adequacy: Max Daily Dose Achieved: Side Effects: Effectiveness: Comments: Gabapentin, other use Valproate Zonisamide Congitive sideeffects Comorbidities: Minor: Mood Disorders Episode Description: SEIZURE TYPE 1: Episodes of LOC (unclear if epileptic or non-epileptic) Description: She feels heart rate getting slower followed by loss of consciousness. Pediatric clinic in 2016 also noted legs giving out. Loss of awareness: Duration: Frequency: Last occurred: SEIZURE TYPE 2: nocturnal shaking episode Description: No warning or aura. Per witnesses whole body shakes in the middle of night. Patient has no awareness or recollection. Occurring every day. Loss of awareness: Duration: Frequency: Last occurred: 1 per day Patient Entered Data: EPILEPSY SCORE No Data PHQ-9 SCORE - MALLIKA 2 SCORE - MALLIKA 7 SCORE - QOLIE-10 SCORE (0=worst; 100=best QoL - higher scores represent better function) - LSSS SCORE (0- no seizures 100- most severe possible seizures) - C-SSRS SCREEN - On average, how many hours of sleep do you get in a 24-hour period? - PROMIS Sleep Disturbance T-SCORE - Have you been diagnosed with Sleep Apnea? - Seizure risk factors: Brain Tumor Unanswered CIRCULAR SAWYER STONE Infections Unanswered Developmental Delay Unanswered Family history of seizures Unanswered Febrile Seizure Unanswered Complications Unanswered Stroke Unanswered Traumatic Brain Injury Unanswered Previous Epilepsy Evaluations Other caregivers: Primary Care Provider: Ishmael Vu MD Current Outpatient Medications Medication Sig acetaminophen (TYLENOL) 500 mg tablet Take 2 tablets by mouth every 8 hours as needed for pain. prochlorperazine (COMPAZINE) 10 mg tablet Take 1 tablet by mouth every 8 hours as needed for nausea/vomiting. labetalol (TRANDATE) 100 mg tablet Take 50 mg by mouth twice daily. methocarbamol (ROBAXIN) 750 mg tablet Take 375 mg by mouth twice daily. traMADol (ULTRAM) 50 mg tablet Take 0.5 tablets by mouth twice daily. amitriptyline (ELAVIL) 100 mg tablet Take 1 tablet by mouth daily at bedtime. divalproex ER (DEPAKOTE ER) 500 mg 24 hr tablet (more content not included)... [facility] 01-20-2023 Instructions Benny Ryan MD - 01/20/2023 10:27 AM EDT We will admit you to EMU for clarifying diagnosis. We will attempt to change Depakote to a different medication when you are in the hospital. Avoid Tramadol and Wellbutrin due to increased risk of seizures. Seizure precautions - No driving in the [facility] until seizure free for 6 months - No operating heavy machines - No swimming without supervision or bathing in a bathtub due to risk of drowning in the event of a seizure. Patient may shower. - Avoid unsafe heights, including ladders, due to risk of fall-related injury in the event of a seizure. - Seizure precipitating factors discussed including not taking seizure medications as prescribed, stress, excessive caffeine intake, energy drinks, alcohol, sleep deprivation or any identifiable seizure precipitating factor. Benny Ryan MD Associate Staff, Epilepsy [facility] January 20, 2023 Office phone: [phone] documented in this encounter [facility] 01-20-2023 History of Present illness Narrative [facility] Patient Name: Faisal ZUNIGA Date of : 2000 Referring Provider: Penny Mackenzie [facility] [address] Cuello [address] [address] INITIAL EPILEPSY CLINIC NOTE 01/20/2023 10:00 AM CHIEF COMPLAINT: New Patient and Epilepsy HISTORY OF PRESENT ILLNESS Ms. Alegria is a 22 year old right-handed female seen in [facility] for initial consultation. There is no one accompanying the patient during today's visit. Handedness: right-handed Age of onset: 15 years Seizure History and Evolution Ms. Faisal Alegria is a 22 year old Right handed woman with history of headaches, unexplained falls, back pain s/p L5 S1 laminectomy for ?severe radiculopathy and epilepsy. She was previously seen by Dr. Velarde , last seen in 2019. 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 She felt heart rate drop and lost consciousness with shaking. Per chart review, she was seen in [address] [facility] Neurology clinic for falls and leg pain. It was noted that her legs give out. Some of these symptoms were attributed to stressors. She was referred to psychiatry. She was seen by Dr. Velarde in 2019 for multiple different episode types including passing out at work, that she associates with headaches, her eyes becoming dark, face goes numb, tingling in lower extremities. In addition she also had nocturnal shaking episodes. With these concerns, she was referred to EMU in 2019 which showed polyspikes, and generalized spikes suggesting a diagnosis of generalized epilepsy. She also had an event of headache, vision symptoms and crying without EEG changes. She was originally started on Zonisamide but felt high-like so it was switched to Depakote. She cut the dose to half on her own due to nausea on 1000 mg QHS dose. She was previously on Lamictal for mood and has tolerated well. Recently she was evaluated for IIH, however no elevated opening pressure was noted on LP ( OP of 23). There was concern for papilledema on eye exam however it is now felt to be anatomical. No signs of optic neuritis based on evaluation at [facility] (Dr. Mackenzie). Total # of Current Anti-seizure Medications: Side Effects to Current Anti-seizure Medications: Seizure Frequency at First Visit: Longest Seizure-free Interval: CURRENT OUTPATIENT ANTISEIZURE MEDICATIONS (as of the start of the encounter) divalproex ER (DEPAKOTE ER) 500 mg 24 hr tablet (Taking) Take 2 tabs by mouth QHS. Prior Anti-seizure Therapies: Trial Adequacy: Max Daily Dose Achieved: Side Effects: Effectiveness: Comments: Gabapentin, other use Valproate Zonisamide Congitive sideeffects Comorbidities: Minor: Mood Disorders Episode Description: SEIZURE TYPE 1: Episodes of LOC (unclear if epileptic or non-epileptic) Description: She feels heart rate getting slower followed by loss of consciousness. Pediatric clinic in 2016 also noted legs giving out. Loss of awareness: Duration: Frequency: Last occurred: SEIZURE TYPE 2: nocturnal shaking episode Description: No warning or aura. Per witnesses whole body shakes in the middle of night. Patient has no awareness or recollection. Occurring every day. Loss of awareness: Duration: Frequency: Last occurred: 1 per day Patient Entered Data: EPILEPSY SCORE No Data PHQ-9 SCORE - MALLIKA 2 SCORE - MALLIKA 7 SCORE - QOLIE-10 SCORE (0=worst; 100=best QoL - higher scores represent better function) - LSSS SCORE (0- no seizures 100- most severe possible seizures) - C-SSRS SCREEN - On average, how many hours of sleep do you get in a 24-hour period? - PROMIS Sleep Disturbance T-SCORE - Have you been diagnosed with Sleep Apnea? - Seizure risk factors: Brain Tumor Unanswered CIRCULAR SAWYER STONE Infections Unanswered Developmental Delay Unanswered Family history of seizures Unanswered Febrile Seizure Unanswered Complications Unanswered Stroke Unanswered Traumatic Brain Injury Unanswered Previous Epilepsy Evaluations Other caregivers: Primary Care Provider: Ishmael Vu MD Current Outpatient Medications Medication Sig acetaminophen (TYLENOL) 500 mg tablet Take 2 tablets by mouth every 8 hours as needed for pain. prochlorperazine (COMPAZINE) 10 mg tablet Take 1 tablet by mouth every 8 hours as needed for nausea/vomiting. labetalol (TRANDATE) 100 mg tablet Take 50 mg by mouth twice daily. methocarbamol (ROBAXIN) 750 mg tablet Take 375 mg by mouth twice daily. traMADol (ULTRAM) 50 mg tablet Take 0.5 tablets by mouth twice daily. amitriptyline (ELAVIL) 100 mg tablet Take 1 tablet by mouth daily at bedtime. divalproex ER (DEPAKOTE ER) 500 mg 24 hr tablet Take 2 tabs by mouth QHS. No current facility-administered medications for this visit. ALLERGIES Allergen Reactions Dilaudid Cough Hives, Other: See Comments dILAUDID Morphine Hives Percocet [Oxycodone* Hives Red Dye Hives Tylenol #3 [Codeine] Hives PAST MEDICAL HISTORY Diagnosis Date Acid reflux Endometriosis age 11 Fibromyalgia a freshman in high school IIH (idiopathic intracranial hypertension) Lumbar herniated disc Migraines age 4 Papilledema PAST SURGICAL HISTORY Procedure Laterality Date PAST SURGICAL HISTORY OF laparoscopy FAMILY HISTORY Problem Relation Age of Onset other (obese) Sister Fibromyalgia Maternal Grandmother other (carpal tunnel) Maternal Grandmother other (acid reflux) Maternal Grandmother Cancer Maternal Grandfather Cancer Paternal Grandmother Cancer Paternal Grandfather Multiple Sclerosis No Family History SOCIAL HISTORY: -Lives in [place], [place] -Patient lives alone? -Vocation: -Education: -Cigarette, alcohol, substance use: -Functional status: -Patient driving? Review of Systems All other systems reviewed and are negative. VITAL SIGNS: BP 120/82 Pulse 64 Resp 18 Ht 160 cm (5' 3 ) Wt 93 kg (205 lb) LMP (LMP Unknown) No BMI 36.31 kg/m General Examination: She is alone. General: Awake, alert, interactive, no acute distress, good nutritional status, normal development, well-kept Patient is wearing an abdominal binder Neurological Exam Mental Status Alert, fully oriented, attentive, with normal cognition, memory, speech and affect. Cranial Nerves Face symmetric. Hearing intact with conversational speech. Motor Examination and Coordination Motor examination with normal bulk. Normal coordination. No adventitious movements or significant tremor. Gait Antalgic gait IMPRESSION: Ms. Faisal Alegria is a 22 year old Right handed woman with evidence of generalized epilepsy based on interictal findings during EMU evaluation in 2019, now with nocturnal episodes( shaking, unawareness) of unclear etiology. Some of the symptoms are attributed to worsening stressors and anxiety by the patient. Discussed EMU evaluation to clarify new episodes as well as to switch AEDs. She is on Depakote 500 mg QHS. Previous tried 1000 mg QHS that caused nausea. Did not tolerate Zonisamide in the past (felt high). Discussed switching to lamictal when in the EMU. CLASSIFICATION OF NON-EPILEPTIC CONDITIONS Paroxysmal Events EPILEPSY CLASSIFICATION Generalized Epilepsy PLAN: Continue VPA 500 mg QHS ( prescribed as 2x 500 tabs, pt only takes one tab) Diagnostic EMU evaluation for nocturnal shaking episodes. Switch VPA to LTG while in EMU Seizure precautions including no driving discussed. Consider Folic acid supplementation. Avoid Tramadol/bupropion Future AED options: Vimpat, Onfi Data reviewed as above including: electronic medical record Education Seizure precautions - No driving in the [facility] until seizure free for 6 months - No operating heavy machines - No swimming without supervision or bathing in a bathtub due to risk of drowning in the event of a seizure. Patient may shower. - Avoid unsafe heights, including ladders, due to risk of fall-related injury in the event of a seizure. - Seizure precipitating factors discussed including not taking seizure medications as prescribed, stress, excessive caffeine intake, energy drinks, alcohol, sleep deprivation or any identifiable seizure precipitating factor. I discussed the risks, benefits and alternatives of the medical plan with the patient. Questions were answered. The patient agreed with the plan as discussed. FOLLOW-UP: Return in about 5 months (around 06/22/2023). I spent a total of 60 minutes on the date of the service which included: preparing to see the patient completing clinical documentation [id number] patient care obtaining and/or reviewing separately obtained history counseling and educating the patient/family/caregiver performing a medically appropriate examination ordering medications, tests, or procedures Benny Ryan MD cc: Primary Care Physician: Ishmael Vu MD [address] [place] [id number] Referring: Penny Mackenzie [address] [address] Patient: Ms. Faisal Alegria [address] [place] [id number] Please route this encounter to the EMU Scheduling Pool ( P EMU ) or PMU Scheduling Pool ( P PMU ) through LOS & Follow up PHASE 1.0 AND 1.5 ORDER SYNOPSIS Patient: Faisal Alegria ([id number]) Best contact number: [phone] Insurance: Payor: [facility] MEDICAID / Plan: [facility] MEDICAID / Product Type: Medicaid / Scheduling Team: Please call for adult patients: Kalie Montenegro ([phone]) Linda Ghosh ([phone]) Heidy Irwin ([phone]) Yovana Powell([phone]) Keiry Roe([phone]) Please call for pediatric patients: Yovana Powell ([phone]) Kalie Montenegro ([phone]) Linda Ghosh ([phone]) Heidy Irwin ([phone]),Keiry Roe([phone]) 01/20/2023 Admission Type EMU Adult Number of Days requested 5 Location [place] (Adults only) Admit Priority Routine PURPOSE 01/20/2023 Patient Being Considered for Epilepsy Surgery? No VEEG recommended to assess seizure burden, address new & concerning syymptom-sign complex, and/or clarify syndromic epilepsy diagnosis? Yes 01/20/2023 Sphenoidal monitoring No Electrode placement Standard Appointments and Tests EPIL EEG LEAD PLACEMENT EPIL VEEG ADMIT TO EMU/PMU Consultations None Please route this encounter to the EMU Scheduling pool ( P EMU ) or PMU Scheduling pool ( P PMU ) through LOS & Follow up Scheduling coordinators: For all VNS patients being scheduled for JAYDON, please schedule VNS off/on office visits. documented in this encounter [facility] 01-12-2023 Telephone encounter Note Submitted PA request to pts insurance, office will contact patient to schedule if approved [facility] 01-12-2023 Miscellaneous Notes Submitted PA request to pts insurance, office will contact patient to schedule if approved Can offer fast-track RIGHT S1 TFESI. Noted Fast-track Right S1 TFESI Referral entered Please send to provider for review Patient called and notified that her MRI showed that she had normal scar tissue at the right S1 nerve. She is willing to try a right S1 TFESI as recommended by Dr. Vallejo. Please place an order for this for me to sign. documented in this encounter [facility] 01-11-2023 Telephone encounter Note Can offer fast-track RIGHT [facility] TFESI. [facility]: 01-11-2023 Miscellaneous Notes Can offer fast-track RIGHT S1 TFESI. Noted Fast-track Right S1 TFESI Referral entered Please send to provider for review Patient called and notified that her MRI showed that she had normal scar tissue at the right S1 nerve. She is willing to try a right S1 TFESI as recommended by Dr. Vallejo. Please place an order for this for me to sign. documented in this encounter [facility] 01-10-2023 Note Fast-track Right S1 TFESI Referral entered Please send to provider for review [facility] 01-10-2023 Telephone encounter Note Noted [facility] 01-10-2023 Telephone encounter Note Fast-track Right S1 TFESI Referral entered Please send to provider for review [facility] 01-10-2023 Telephone encounter Note Patient called and notified that her MRI showed that she had normal scar tissue at the right S1 nerve. She is willing to try a right S1 TFESI as recommended by Dr. Vallejo. Please place an order for this for me to sign. [facility] 12-24-2022 Note HNO ID: [id number] Author: Penny Sky MD Service: ? Author Type: Physician Type: Progress Notes Filed: 12/24/2022 8:52 AM Note Text: ??This is a telemedicine visit that was performed using the [employer] virtual platform with the originating site at my work office and the distant site at the patient's home. Verbal consent to participate in a combined audio and video visit was obtained. This visit occurred during the Coronavirus (COVID-19) Public Health Emergency. The patient consented to this virtual visit. I discussed with the patient the nature of our telemedicine visits, that: - I would evaluate the patient and recommend diagnostics and treatments based on my assessment - Our sessions are not being recorded and that personal health information is protected - Our team would provide follow up care in person if/when the patient needs it I have communicated my name and active licensure. The patient's identity and physical location were verified at the time of this visit. Either the patient or their legal sales representative education courses has been informed of the risks and benefits of -- and alternatives to -- treatment through a remote evaluation and consents to proceed with the evaluation remotely. Faisal Alegria is a 22 year old woman who presents today for follow up optic disc elevation. At initial consultation on November 29, 2022, the patient reported being incidentally found to have bilateral optic disc edema by a local eye doctor Winter 2021. There were no other recent dilated fundus exams available for comparison when this was initially diagnosed. This occurred in the setting of intermittently positional headaches, with vision changes at times with her headaches, otherwise without peripheral vision loss, transient visual obscurations, pulsatile tinnitus, or diplopia. Her weight had not significantly changed. She denied exposure to topical retin-A / accutane, tetracyclines, or recent COVID-19 infection. MRI AND MRV brain performed in August 2022 with and without contrast did not show a structural etiology for her optic disc edema. Her family history is notable for color blindness in her brother and a maternal uncle with glaucoma. Her initial neuro-ophthalmic exam on 11/29/22 did show bilateral optic disc edema, right blind spot enlargement (with unreliable arcuates on the left), and bilateral dyschromatopsia. Given the history, exam, and prior work up, the next step was a lumbar puncture to check the opening pressure, thereby either confirming or rejecting the diagnosis of intracranial hypertension. ASSESSMENT/PLAN: (H47.393) Elevation of optic disc, bilateral (primary encounter diagnosis) Today (December 24, 2022) She reports actually experiencing some relief in the weight in her head with the lumbar puncture, with return of her headaches last night (that does not reportedly worsen when upright as with a post-lumbar puncture /CSF hypotension headache). There have otherwise been no changes of vision since last visit and vision was notably not something that she had reported concerns with other than in association with her headaches. She did establish with neurology 12/16 and is pending epilepsy consultation. Opening pressure on lumbar puncture performed 12/22 was recorded at 23 cm H2O, which is within normal limits (<25). It is certainly possible that this reflects the anatomic appearance of her nerves since her referring provider had seen her for the first time when she presented in winter without comparison exams prior to that. We discussed the potential options of monitoring as well as a diagnostic therapeutic trial on a low dose of a pressure lowering medication, but after extensive discussion with the patient she would like to opt for monitoring which is reasonable given normal opening pressure. I will therefore plan to see her back in 3-4 months for repeat testing/OCT to ensure at minimum stability, particularly given her afferent visual pathway deficits present at initial consultation. We reviewed signs/symptoms to be aware of that would warrant immediate presentation, for which she was provided my contact information and was encouraged to reach out. ER presentation is otherwise advised for any acute onset neurological deficits. Penny Sky MD 8:47 AM 12/24/2022 FOR ADMINISTRATIVE PURPOSES ONLY: My impression of this case is based upon an assessment of the the patient's subacute on chronic problems listed above that pose a threat to neurologic function. 32 minutes were spent on total patient care on the day of service that includes [id number] time and non. The majority of this time was spent counseling and coordinating care. I communicated with Dr. Vu regarding the management of this patient. The assessment and plan were discussed extensively with the patient who was amenable and voiced understanding. [facility] 12-24-2022 History of Present illness Narrative ??This is a telemedicine visit that was performed using the [employer] virtual platform with the originating site at my work office and the distant site at the patient's home. Verbal consent to participate in a combined audio and video visit was obtained. This visit occurred during the Coronavirus (COVID-19) Public Health Emergency. The patient consented to this virtual visit. I discussed with the patient the nature of our telemedicine visits, that: - I would evaluate the patient and recommend diagnostics and treatments based on my assessment - Our sessions are not being recorded and that personal health information is protected - Our team would provide follow up care in person if/when the patient needs it I have communicated my name and active licensure. The patient's identity and physical location were verified at the time of this visit. Either the patient or their legal sales representative education courses has been informed of the risks and benefits of -- and alternatives to -- treatment through a remote evaluation and consents to proceed with the evaluation remotely. Faisal Alegria is a 22 year old woman who presents today for follow up optic disc elevation. At initial consultation on November 29, 2022, the patient reported being incidentally found to have bilateral optic disc edema by a local eye doctor Winter 2021. There were no other recent dilated fundus exams available for comparison when this was initially diagnosed. This occurred in the setting of intermittently positional headaches, with vision changes at times with her headaches, otherwise without peripheral vision loss, transient visual obscurations, pulsatile tinnitus, or diplopia. Her weight had not significantly changed. She denied exposure to topical retin-A / accutane, tetracyclines, or recent COVID-19 infection. MRI & MRV brain performed in August 2022 with and without contrast did not show a structural etiology for her optic disc edema. Her family history is notable for color blindness in her brother and a maternal uncle with glaucoma. Her initial neuro-ophthalmic exam on 11/29/22 did show bilateral optic disc edema, right blind spot enlargement (with unreliable arcuates on the left), and bilateral dyschromatopsia. Given the history, exam, and prior work up, the next step was a lumbar puncture to check the opening pressure, thereby either confirming or rejecting the diagnosis of intracranial hypertension. ASSESSMENT/PLAN: (H47.393) Elevation of optic disc, bilateral (primary encounter diagnosis) Today (December 24, 2022) She reports actually experiencing some relief in the weight in her head with the lumbar puncture, with return of her headaches last night (that does not reportedly worsen when upright as with a post-lumbar puncture /CSF hypotension headache). There have otherwise been no changes of vision since last visit and vision was notably not something that she had reported concerns with other than in association with her headaches. She did establish with neurology 12/16 and is pending epilepsy consultation. Opening pressure on lumbar puncture performed 12/22 was recorded at 23 cm H2O, which is within normal limits (<25). It is certainly possible that this reflects the anatomic appearance of her nerves since her referring provider had seen her for the first time when she presented in winter without comparison exams prior to that. We discussed the potential options of monitoring as well as a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 patient that the outcome of complex spinal surgery such as this cannot be guaranteed. All questions were answered to the patient's satisfaction, and the patient expressed excellent understanding of the above mentioned concepts. Based on the discussion above, the patient elected to proceed with surgery as outlined above and signed informed consent. Procedure: The patient Faisal Alegria was brought to the holding area. In the holding area the patient was seen and examined by myself and the surgical site was marked with my initials with an indelible pen. The patient was then transferred to the OR by the nursing staff. In the OR the patient was given a dose of IV antibiotics within an hour of the surgical start. The patient then underwent general anesthetic while on their hospital bed and a timeout procedure was performed. SCD's were placed on the lower extremities and then turned prone onto the OR Tamir Frame table. All pressure points were well padded. The back was then prepped and draped in the usual sterile fashion. Fluoroscopy was then used to identify the appropriate surgical level. The skin over the target level was then anesthetized with local anesthetic. The skin was then incised with a scalpel and dissection was carried down to the lumbar fascia. The lumbodorsal fascia was then divided on the right with sequentially larger dilators until the self retaining retractor could be placed on the posterior elements of the correct operative levels. The intraoperative microscope was then brought into the operative field for the laminectomy. I then performed the laminectomy of L5. Using a combination of the high speed bur, Kerrison punches, spinal curets, and the microscopic Rhoton instruments, a laminectomy was performed to decompress the lamina and expose the ligamentum beneath. The cauda equina and nerve roots were seen to be compressed by the residual hypertrophic facets and the residual ligamentum flavum. A partial medial facetectomy was performed to decompress the lateral recess and expose the lateral ligamentum. The flavum was then removed to decompress the dura and nerve roots beneath. At the conclusion of the decompression the cauda equina and the L5 nerve roots were visualized and found to be decompressed. I then performed the laminectomy of S1. Using a combin (more content not included)... [facility] 09-14-2022 Note Please see office an d permission testing history and physical dated within 30 days of surgery. The patient and I discussed thoroughly the natural history of lumbar radiculopathy. I explained to them that their symptoms are caused by both mechanical compression on the nerve in addition to chemical irritation secondary to the acute inflammation. I reviewed with them the data of the spine patient outcome research trial (SPORT trial). We reviewed how conservative measures in the form of physical therapy, activity modification, oral medication and possible epidural injections are typically performed. If the patient's quality of life is not acceptable after undergoing at least 6 weeks of the above treatments, then surgical intervention becomes an option. The patient and I discussed at length their spinal condition. At this point, they have exhausted all forms of conservative measures that I have recommended. Their quality of life is totally unacceptable and they are unable to perform activities of daily living. We discussed the role of continued conservative care versus operative intervention. We discussed that the role of spine surgery is to obtain a meaningful functional recovery and does not guarantee a 100% recovery. I explained to them that we will certainly take the pressure off of the nerves during surgery, but we cannot predict biology and the nerves may take time to heal, if at all. After careful consideration, the patient certainly understands and has elected to proceed. The risks of surgery were carefully explained to the patient and family members present, of which are detailed below, verbally acknowledged and verbal consent given. Assessment: 22-year-old female with right S1 radiculopathy Plan: MIS right L5/S1 microdiscectomy with laminectomy Toni Vallejo MD The patient and I had a long discussion today with confirmed verbal understanding regarding the risks of spine surgery, which include but are not limited to the following: Blood loss from arteries or veins requiring tying off or repairing of the vessels. Transfusions of blood, which have a risk of allergic transfusion reactions and viral illnesses, including hepatitis and HIV. Infection, including wound or bone infections and/or meningitis (spinal cord infection), with subsequent need for antibiotics or future surgical procedures. Epidural hematoma. Blood clots, including deep vein thromboses (DVT) and arterial clots, with possibility of propagation of the blood clot to the lungs, brain or other organs. Respiratory or cardiac arrest (heart attack). Strokes. Coma. Blindness related to anesthesia in the prone position (rare). Renal failure. Lymphatic injury. Pneumonia. Esophageal injury. Difficulty swallowing. Hoarseness or loss of vocalization. Bowel injury. Ileus. Headache. Dizziness. Syncope. Allergic reactions to medications. Unpleasant scar formation. The need for further surgery. . Risks more specific to operations on the spine include: Failure of the surgery to relieve pain, weakness or numbness. Increased pain in the neck, back, arms or legs relating to the surgery and/or positioning. Nerve or spinal cord irritation or injury leading to paralysis, spinal instability, spinal vertebral fracture, weakness, numbness, urologic dysfunction, bowel dysfunction, sexual dysfunction, or pain. Tear of the covering of the spinal cord and spinal nerves (dural tear), leading to the need for patching or repair of such tear, or leading to spinal fluid leaks and fistulas. Surgical instrument failure, spine instrumentation/hardware failure (loosening or breakage). The need for further surgery. Risks commonly associated with spinal fusion operations include: Graft donor site pain, numbness and weakness. Graft failure and/or collapse. Failure of fusion to take place (pseudarthrosis). Breakage or dislodgement of hardware used in the spine (screws, hooks, rods, plates, cages). The need to use cadaver banked bone, with increased risk of infection and pseudarthrosis. The need for further surgery. The use of certain spinal hardware is not fully approved by the [place] Food and Drug Administration (FDA), and continues to be investigated for a decision about approval. I have substantial training in the safe placement of all spinal hardware, and this hardware is often the best choice for use in assisting a solid fusion to occur, and thus for improved clinical outcome. Risks associated with this hardware includes breakage or dislodgement of the hardware, blood vessel and/or nerve injury associated with placement of the hardware, and failure of the hardware to hold fast to itself or to bone. Occasionally, bone cement is used to help the hardware to hold well. ' [facility] 09-08-2022 Note HNO ID: [id number] Author: RT Vinicio(R) Service: ? Author Type: Technologist Type: Progress Notes Filed: 09/08/2022 2:52 PM Note Text: Radiology Service Progress Note DATE OF SERVICE: September 08, 2022 TIME: 2:30 PM PATIENT IDENTITY VERIFICATION COMPLETED USING TWO (2) STANDARD IDENTIFIERS: Name and Date of confirmed by patient verbally. FALL SCREENING: Has the patient had 2 falls in the last year or 1 fall with injury or currently using an Ambulatory Assistive Device (Walker, Cane, Wheelchair, Crutches, etc.)? No PATIENT GENDER DATA: Female. status: : No status: NO. PATIENT RELEVANT IMPLANT DATA REVIEWED: Yes ALLERGIES: Reviewed and unchanged CONTRAST ALLERGY: NO. EXAM: MRI - CONTRAST TYPE: GROUP II PERIPHERAL IV DATA: Ambulatory: A peripheral IV was started in the Right antecubital site with a Angio cath: 22 gauge. RADIOLOGY DEPARTMENT: MR; Exam(s) Completed: Head: Orbit/Sinus Sagittal Sinus MRV SIGNATURE: Karine Stover RDMS, RVT- Brent ([facility]) PATIENT NAME: Faisal Alegria DATE: September 08, 2022 TIME: 2:30 PM [facility] 09-08-2022 History of Present illness Narrative Radiology Service Progress Note DATE OF SERVICE: September 08, 2022 TIME: 2:30 PM PATIENT IDENTITY VERIFICATION COMPLETED USING TWO (2) STANDARD IDENTIFIERS: Name and Date of confirmed by patient verbally. FALL SCREENING: Has the patient had 2 falls in the last year or 1 fall with injury or currently using an Ambulatory Assistive Device (Walker, Cane, Wheelchair, Crutches, etc.)? No PATIENT GENDER DATA: Female. status: : No status: NO. PATIENT RELEVANT IMPLANT DATA REVIEWED: Yes ALLERGIES: Reviewed and unchanged CONTRAST ALLERGY: NO. EXAM: MRI - CONTRAST TYPE: GROUP II PERIPHERAL IV DATA: Ambulatory: A peripheral IV was started in the Right antecubital site with a Angio cath: 22 gauge. RADIOLOGY DEPARTMENT: MR; Exam(s) Completed: Head: Orbit/Sinus Sagittal Sinus MRV SIGNATURE: Karine Stover RDMS, RVT- [facility] ([facility]) PATIENT NAME: Faisal Alegria DATE: September 08, 2022 TIME: 2:30 PM documented in this encounter [facility] 09-07-2022 Note Patient: Faisal elizondo Procedure Information Date/Time: 09/14/22 1530 Procedure: Lumbar MIS Right L5/S1 Laminectomy (Spine Lumbar) - 150 MINUTES TOTAL WITH TURNOVER Location: [address] Operating Room Surgeons: Toni Vallejo MD Past Medical History: Past Medical History: No date: Anxiety No date: Depression No date: Epilepsy (HCC) No date: Seizures (CMS/HCC) (HCC) Past Surgical History: Past Surgical History: No date: LAPAROSCOPY ABDOMEN DIAGNOSTIC (HISTORICAL) Social History: TOBACCO: reports that she has never smoked. She has never used smokeless tobacco. ETOH: reports current alcohol use. Social History Substance and Sexual Activity Drug Use Never Family History: No family history on file. Screening: Having periods Clinical information reviewed: Allergies Meds Problems OB Status Physical Exam Airway Mallampati: III TM distance: >3 FB Neck ROM: full Mouth Open: normalendotracheal tube not in place Cardiovascular Dental Pulmonary Abdominal Anesthesia Plan ASA 2 general (H&H not done in PAT ordered DOS ) The patient is not a current smoker. Anesthetic plan and risks discussed with patient. Use of blood products discussed with who consented to blood products. patient is NPO General ERAS Patient has history of grand mal seizures, none for the last few months, on meds ÓSCAR Screening STOP-Bang Total Score: 0 Labs: Lab Results Component Value Date WBC 5.4 11/10/2020 HGB 12.7 11/10/2020 MCV 90.6 11/10/2020 Lab Results Component Value Date NA 137 11/10/2020 K 4.0 11/10/2020 CL 103 11/10/2020 CO2 28 07/28/2022 BUN 17 07/28/2022 CREATININE 0.65 07/28/2022 GLUCOSE 88 07/28/2022 CALCIUM 10.0 07/28/2022 PROT 7.6 07/28/2022 ALKPHOS 58 07/28/2022 AST 13 07/28/2022 ALT 11 07/28/2022 EGFR 126 07/28/2022 Pain Score: 8 No echocardiogram results found for the past 14 days 11/10/20 (Final) Narrative Ordered by an unspecified provider. [facility] 09-07-2022 Note Comprehensive PreSur gical History and Physical ? Name: Faisal Alegria : 2000 (Age-22 y.o.) Date of Service: Pt seen/examined on 09/07/2022 Procedure Information Date/Time: 09/14/22 1530 Procedure: Lumbar MIS Right L5/S1 Laminectomy (Spine Lumbar) - 150 MINUTES TOTAL WITH TURNOVER Location: [facility] OR [address] [place] [address] Operating Room Surgeons: Toni Vallejo MD Chief Complaint: Right leg weakness History Of Present Illness: 22 y.o. female who we are asked to see/evaluate by No name on file for pre-operative evaluation prior to . ? Pt. Presenting for the above surgery for right lower extremity weakness and numbness. Pt. Endorses leg buckling when going down the stairs.Lumbar degenerative disc disease L4/L5 and L5/S1. Pt. Saw above MD and elected for the procedure. Past Medical History: Past Medical History: No date: Anxiety No date: Depression No date: Epilepsy (HCC) No date: Seizures (CMS/HCC) (HCC) Past Surgical History: Past Surgical History: No date: LAPAROSCOPY ABDOMEN DIAGNOSTIC (HISTORICAL) Medications Prior to Admission: Prior to Admission medications Medication Sig Start Date End Date Taking? Authorizing Provider amitriptyline (Elavil) 10 MG tablet Take 10 mg by mouth. Historical Provider, busPIRone (Buspar) 7.5 MG tablet Take 7.5 mg by mouth in the morning and 7.5 mg in the evening. 08/22/18 Historical Provider, clonazePAM (KlonoPIN) 0.5 MG tablet Take 1 tablet by mouth for seizures greater than 3 minutes or for 3 or more seizures in 8 hours. Not to exceed 2 doses in 24 hours. 09/08/18 Historical ProviderMD medroxyPROGESTERone (Provera) 10 MG tablet TAKE 1 TABLET BY MOUTH EVERY DAY FOR 10 DAYS 09/11/20 Historical Provider, methocarbamol (Robaxin) 750 MG tablet Take 1 tablet (750 mg) by mouth Nightly. 07/23/22 08/22/22 Alexandro Hanks PA-C omeprazole (PriLOSEC) [address] capsule Take 40 mg by mouth daily. 06/07/22 Historical ProviderMD predniSONE (Deltasone) 20 MG tablet Take 40 mg by mouth daily. 04/27/22 Historical Provider, sertraline (Zoloft) 100 MG tablet Take 100 mg by mouth daily. 06/07/22 Historical Provider, CHRONIC NARCOTIC USE: No Allergies: Codeine, Dilaudid [hydromorphone], Morphine, Oxycodone-acetaminophen, and Red dye Can the patient take acetaminophen: Yes Social History: TOBACCO: reports that she has never smoked. She has never used smokeless tobacco. ETOH: reports current alcohol use. Social History Substance and Sexual Activity Drug Use Never Family History: No family history on file. REVIEW OF SYSTEMS: Review of Systems Constitutional: Negative. Negative for unexpected weight change. HENT: Negative. Eyes: Negative. Respiratory: Negative. Cardiovascular: Negative. Gastrointestinal: Negative. Endocrine: Negative. Genitourinary: Negative. Musculoskeletal: Negative. Skin: Negative. Neurological: Positive for weakness and numbness. Right leg Hematological: Negative. Psychiatric/Behavioral: Negative. All other systems reviewed and are negative. Physical Exam Vitals reviewed. Constitutional: Appearance: Normal appearance. HENT: Head: Normocephalic. Right Ear: Tympanic membrane normal. Left Ear: Tympanic membrane normal. Nose: Nose normal. Eyes: Extraocular Movements: Extraocular movements intact. Pupils: Pupils are equal, round, and reactive to light. Cardiovascular: Rate and Rhythm: Normal rate and regular rhythm. Pulses: Normal pulses. Heart sounds: Normal heart sounds. Pulmonary: Effort: Pulmonary effort is normal. Breath sounds: Normal breath sounds. Abdominal: General: Abdomen is flat. Bowel sounds are normal. Palpations: Abdomen is soft. Musculoskeletal: Cervical back: Normal range of motion and neck supple. Skin: General: Skin is warm and dry. Neurological: General: No focal deficit present. Mental Status: She is alert. Psychiatric: Mood and Affect: Mood normal. Vitals: Vitals Value Taken Time BP 108/70 09/07/22 1357 Temp 36.8 ?C (98.2 ?F) 09/07/22 1357 Pulse 92 09/07/22 1357 Resp 20 09/07/22 1357 SpO2 96 % 09/07/22 1357 Labs: Lab Results Component Value Date WBC 5.4 11/10/2020 HGB 12.7 11/10/2020 MCV 90.6 11/10/2020 Lab Results Component Value Date NA 137 11/10/2020 K 4.0 11/10/2020 CL 103 11/10/2020 CO2 28 07/28/2022 BUN 17 07/28/2022 CREATININE 0.65 07/28/2022 GLUCOSE 88 07/28/2022 CALCIUM 10.0 07/28/2022 PROT 7.6 07/28/2022 ALKPHOS 58 07/28/2022 AST 13 07/28/2022 ALT 11 07/28/2022 EGFR 126 07/28/2022 Francesco's Simple Cardiac Risk Index: FRANCESCO'S SIMPLE CARDIAC RISK SCORE: 0 Interpretation: 0 Points Class I 0.5% 1 Point Class II 1.3% 2 Points Class III 3.6% 3+ Points Class IV 9.1% METS >4 METS (Able to climb a flight of stairs with no chest pain or shortness of breath): Yes PAT Pain Score: Pain Score: 8 Postop Pain Management Plan (Pain consult ordered?): Pain (more content not included)... [facility] 09-07-2022 Note Comprehensive PreSur gical History and Physical ? Name: Faisal Alegria : 2000 (Age-22 y.o.) Date of Service: Pt seen/examined on 09/07/2022 Procedure Information Date/Time: 09/14/22 1530 Procedure: Lumbar MIS Right L5/S1 Laminectomy (Spine Lumbar) - 150 MINUTES TOTAL WITH TURNOVER Location: [facility] Operating Room Surgeons: Toni Vallejo MD Chief Complaint: Right leg weakness History Of Present Illness: 22 y.o. female who we are asked to see/evaluate by No name on file for pre-operative evaluation prior to . ? Pt. Presenting for the above surgery for right lower extremity weakness and numbness. Pt. Endorses leg buckling when going down the stairs.Lumbar degenerative disc disease L4/L5 and L5/S1. Pt. Saw above MD and elected for the procedure. Past Medical History: Past Medical History: No date: Anxiety No date: Depression No date: Epilepsy ([facility]) No date: Seizures (CMS/HCC) ([facility]) Past Surgical History: Past Surgical History: No date: LAPAROSCOPY ABDOMEN DIAGNOSTIC (HISTORICAL) Medications Prior to Admission: Prior to Admission medications Medication Sig Start Date End Date Taking? Authorizing Provider amitriptyline (Elavil) 10 MG tablet Take 10 mg by mouth. Historical Provider, busPIRone (Buspar) 7.5 MG tablet Take 7.5 mg by mouth in the morning and 7.5 mg in the evening. 08/22/18 Historical Provider, clonazePAM (KlonoPIN) 0.5 MG tablet Take 1 tablet by mouth for seizures greater than 3 minutes or for 3 or more seizures in 8 hours. Not to exceed 2 doses in 24 hours. 09/08/18 Historical Provider, medroxyPROGESTERone (Provera) 10 MG tablet TAKE 1 TABLET BY MOUTH EVERY DAY FOR 10 DAYS 09/11/20 Historical Provider, methocarbamol (Robaxin) 750 MG tablet Take 1 tablet (750 mg) by mouth Nightly. 07/23/22 08/22/22 Alexandro Hanks PA-C omeprazole (PriLOSEC) [address] capsule Take 40 mg by mouth daily. 06/07/22 Historical Provider, predniSONE (Deltasone) 20 MG tablet Take 40 mg by mouth daily. 04/27/22 Historical Provider, sertraline (Zoloft) 100 MG tablet Take 100 mg by mouth daily. 06/07/22 Historical Provider, CHRONIC NARCOTIC USE: No Allergies: Codeine, Dilaudid [hydromorphone], Morphine, Oxycodone-acetaminophen, and Red dye Can the patient take acetaminophen: Yes Social History: TOBACCO: reports that she has never smoked. She has never used smokeless tobacco. ETOH: reports current alcohol use. Social History Substance and Sexual Activity Drug Use Never Family History: No family history on file. REVIEW OF SYSTEMS: Review of Systems Constitutional: Negative. Negative for unexpected weight change. HENT: Negative. Eyes: Negative. Respiratory: Negative. Cardiovascular: Negative. Gastrointestinal: Negative. Endocrine: Negative. Genitourinary: Negative. Musculoskeletal: Negative. Skin: Negative. Neurological: Positive for weakness and numbness. Right leg Hematological: Negative. Psychiatric/Behavioral: Negative. All other systems reviewed and are negative. Physical Exam Vitals reviewed. Constitutional: Appearance: Normal appearance. HENT: Head: Normocephalic. Right Ear: Tympanic membrane normal. Left Ear: Tympanic membrane normal. Nose: Nose normal. Eyes: Extraocular Movements: Extraocular movements intact. Pupils: Pupils are equal, round, and reactive to light. Cardiovascular: Rate and Rhythm: Normal rate and regular rhythm. Pulses: Normal pulses. Heart sounds: Normal heart sounds. Pulmonary: Effort: Pulmonary effort is normal. Breath sounds: Normal breath sounds. Abdominal: General: Abdomen is flat. Bowel sounds are normal. Palpations: Abdomen is soft. Musculoskeletal: Cervical back: Normal range of motion and neck supple. Skin: General: Skin is warm and dry. Neurological: General: No focal deficit present. Mental Status: She is alert. Psychiatric: Mood and Affect: Mood normal. Vitals: Vitals Value Taken Time BP 108/70 09/07/22 1357 Temp 36.8 ?C (98.2 ?F) 09/07/22 1357 Pulse 92 09/07/22 1357 Resp 20 09/07/22 1357 SpO2 96 % 09/07/22 1357 Labs: Lab Results Component Value Date WBC 5.4 11/10/2020 HGB 12.7 11/10/2020 MCV 90.6 11/10/2020 Lab Results Component Value Date NA 137 11/10/2020 K 4.0 11/10/2020 CL 103 11/10/2020 CO2 28 07/28/2022 BUN 17 07/28/2022 CREATININE 0.65 07/28/2022 GLUCOSE 88 07/28/2022 CALCIUM 10.0 07/28/2022 PROT 7.6 07/28/2022 ALKPHOS 58 07/28/2022 AST 13 07/28/2022 ALT 11 07/28/2022 EGFR 126 07/28/2022 Francesco's Simple Cardiac Risk Index: FRANCESCO'S SIMPLE CARDIAC RISK SCORE: 0 Interpretation: 0 Points Class I 0.5% 1 Point Class II 1.3% 2 Points Class III 3.6% 3+ Points Class IV 9.1% METS >4 METS (Able to climb a flight of stairs with no chest pain or shortness of breath): Yes PAT Pain Score: Pain Score: 8 Postop Pain Management Plan (Pain consult ordered?): Pain (more content not included)... [facility] 08-25-2022 Note HNO ID: [id number] Author: Penny Mackenzie MD Service: ? Author Type: Physician Type: Progress Notes Filed: 08/25/2022 4:23 PM Note Text: [facility] NEW PATIENT EVALUATION/CONSULTATION Referral source: Milly Lockwood MD [id number] [facility] [id number] Also followed by: Patient Care Team: Ishmael Vu MD as PCP - General (Internal Medicine) PRINCIPAL NEUROLOGIC DIAGNOSIS: Bilateral optic disc edema DISEASE SUMMARY Date of onset: JUL 2022 Most recent MRI brain: JUL 2022 HISTORY OF ILLNESS: An opinion on this 22 year old right handed female was requested by the referring physician for a second opinion on neurological symptoms. The patient was accompanied by her great aunt and fiance. Previous records (physician notes, laboratory reports, and radiology reports) and imaging studies were reviewed and summarized. My recommendations will be communicated back to the patient's physician(s) via electronic medical record. Follow-up is expected to be with me at the [facility]. Ms. Faisal Alegria is here today for possible optic neuritis. A few days ago, her industrial millwright told her that she had optic disc swelling and mildly elevated intra-ocular pressure (while at a routine check up) and sent her to the ER immediately after at [facility]. They told her that she had swelling in the back of her eyes. At the hospital, they ran labs and told her nothing is wrong. MRI and labs were completed but she does not have the results. A few days following the ER visit, she went back to the industrial millwright who suggested that she be seen at the [facility]. She is scheduled to follow up with ophthalmology in October 2022. Her industrial millwright is Dr. Milly Lockwood at [facility]: [phone] During this time, she has not noticed any problems with her vision and denies any BREAUX. Surgery for a herniated disc is scheduled for 14 SEP 2022 at [facility] - laminectomy, L5 /S1. For the past few years, she has experienced chronic pain and her right leg gives out constantly. 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 History of epilepsy - used to follow with Dr. Velarde. She has trouble scheduling an appointment with him. She is on Depakote for her epilepsy. History of anxiety and epilepsy. She is currently unable to work due to her back. We called and spoke with Dr. Agarwal who is covering for Dr. Mcfadden. Per his report, the patient was noted to have bilateral mild optic disc swelling; she was sent to ER and had a MRI which was read as possible left optic neuritis vs. fluid distension of the left optic nerve sheath. The MRI was otherwise unremarkable. PAST HISTORY: has a past medical history of Acid reflux, Endometriosis, Fibromyalgia, Lumbar herniated disc, and Migraines. has a past surgical history that includes past surgical history of. has a current medication list which includes the following prescription(s): labetalol, methocarbamol, ondansetron orally disintegrating, tramadol, amitriptyline, divalproex er, iv contrast, and iv contrast. Social History Tobacco Use Smoking status: Former Smokeless tobacco: Never Tobacco comments: Former vape user family history includes Cancer in her maternal grandfather, paternal grandfather, and paternal grandmother; Fibromyalgia in her maternal grandmother; acid reflux in her maternal grandmother; carpal tunnel in her maternal grandmother; obese in her sister. PHYSICAL EXAM: BP 124/84 Pulse 89 Ht 160 cm (5' 3 ) Wt 77.1 kg (170 lb) LMP 07/07/2020 (Exact Date) BMI 30.11 kg/m? Multiple Sclerosis Performance Test Flowsheet Row Office Visit from 08/25/[address] [facility] Processing Speed Total Number Correct 32 Low-contrast letter acuity test-2.5 percent opacity 32 Low-contrast letter acuity test-100 percent opacity 59 Dominant hand Right hand MDT Left Hand Time 45.07 MDT Right Hand Time 41.71 Walking Speed Test (25 feet) 9.91 Hair, skin, nails, and joints were normal. Neck was supple without Lhermitte's phenomenon. Heart was regular with no murmurs. Lungs were clear to auscultation bilaterally. There was no peripheral edema. The patient was alert and oriented to person, place, and time with normal language, attention and concentration, recent and remote memory, praxis, and intellectual function. Affect was normal. The patient did not appear depressed. Visual acuity to near card was as follows: OD= 20/25 (with correction) OS= 20/25 (with correction). Visual rivera were full to confrontation. Pupils were 4 mm and briskly reactive OU without a relative afferent pupillary defect. Funduscopic examination was notable for mild bilateral optic disc edema. Ocular ductions were full without nystagmus or ataxia. Facial sensation was normal. Muscles of mastication and (more content not included)... [facility] 08-25-2022 Instructions Penny Mackenzie MD - 08/25/2022 2:27 PM EST Note If you notice any changes in your vision, increases in headaches, fever, or confusion, please go to an emergency room immediately. documented in this encounter [facility] 08-25-2022 History of Present illness Narrative Images from the original note were not included. [facility] NEW PATIENT EVALUATION/CONSULTATION Referral source: Milly Lockwood MD [id number] [facility] [id number] Also followed by: Patient Care Team: Ishmael Vu MD as PCP - General (Internal Medicine) PRINCIPAL NEUROLOGIC DIAGNOSIS: Bilateral optic disc edema DISEASE SUMMARY Date of onset: JUL 2022 Most recent MRI brain: JUL 2022 HISTORY OF ILLNESS: An opinion on this 22 year old right handed female was requested by the referring physician for a second opinion on neurological symptoms. The patient was accompanied by her great aunt and fiance. Previous records (physician notes, laboratory reports, and radiology reports) and imaging studies were reviewed and summarized. My recommendations will be communicated back to the patient's physician(s) via electronic medical record. Follow-up is expected to be with me at the [facility]. Ms. Faisal Alegria is here today for possible optic neuritis. A few days ago, her industrial millwright told her that she had optic disc swelling and mildly elevated intra-ocular pressure (while at a routine check up) and sent her to the ER immediately after at [facility]. They told her that she had swelling in the back of her eyes. At the hospital, they ran labs and told her nothing is wrong. MRI and labs were completed but she does not have the results. A few days following the ER visit, she went back to the industrial millwright who suggested that she be seen at the [facility]. She is scheduled to follow up with ophthalmology in October 2022. Her industrial millwright is Dr. Milly Lockwood at [facility]: [phone] During this time, she has not noticed any problems with her vision and denies any BREAUX. Surgery for a herniated disc is scheduled for 14 SEP 2022 at [facility] - laminectomy, L5 /S1. For the past few years, she has experienced chronic pain and her right leg gives out constantly. 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 History of epilepsy - used to follow with Dr. Velarde. She has trouble scheduling an appointment with him. She is on Depakote for her epilepsy. History of anxiety and epilepsy. She is currently unable to work due to her back. We called and spoke with Dr. Agarwal who is covering for Dr. Mcfadden. Per his report, the patient was noted to have bilateral mild optic disc swelling; she was sent to ER and had a MRI which was read as possible left optic neuritis vs. fluid distension of the left optic nerve sheath. The MRI was otherwise unremarkable. PAST HISTORY: has a past medical history of Acid reflux, Endometriosis, Fibromyalgia, Lumbar herniated disc, and Migraines. has a past surgical history that includes past surgical history of. has a current medication list which includes the following prescription(s): labetalol, methocarbamol, ondansetron orally disintegrating, tramadol, amitriptyline, divalproex er, iv contrast, and iv contrast. Social History Tobacco Use Smoking status: Former Smokeless tobacco: Never Tobacco comments: Former vape user family history includes Cancer in her maternal grandfather, paternal grandfather, and paternal grandmother; Fibromyalgia in her maternal grandmother; acid reflux in her maternal grandmother; carpal tunnel in her maternal grandmother; obese in her sister. PHYSICAL EXAM: BP 124/84 Pulse 89 Ht 160 cm (5' 3 ) Wt 77.1 kg (170 lb) LMP 07/07/2020 (Exact Date) BMI 30.11 kg/m Multiple Sclerosis Performance Test Flowsheet Row Office Visit from 08/25/[address] [facility] Processing Speed Total Number Correct 32 Low-contrast letter acuity test-2.5 percent opacity 32 Low-contrast letter acuity test-100 percent opacity 59 Dominant hand Right hand MDT Left Hand Time 45.07 MDT Right Hand Time 41.71 Walking Speed Test (25 feet) 9.91 Hair, skin, nails, and joints were normal. Neck was supple without Lhermitte's phenomenon. Heart was regular with no murmurs. Lungs were clear to auscultation bilaterally. There was no peripheral edema. The patient was alert and oriented to person, place, and time with normal language, attention and concentration, recent and remote memory, praxis, and intellectual function. Affect was normal. The patient did not appear depressed. Visual acuity to near card was as follows: OD= 20/25 (with correction) OS= 20/25 (with correction). Visual rivera were full to confrontation. Pupils were 4 mm and briskly reactive OU without a relative afferent pupillary defect. Funduscopic examination was notable for mild bilateral optic disc edema. Ocular ductions were full without nystagmus or ataxia. Facial sensation was normal. Muscles of mastication and facial expression moved normally. Hearing was intact to finger rub bilaterally. Palatal movements were normal. Sternocleidomastoid and trapezius power were normal. Tongue movements were normal. There was no dysarthria. Motor Examination: There was no pronator drift. Right Upper Extremity: Left Upper Extremity: Deltoid 5/5 Deltoid 5/5 Biceps 5/5 Biceps 5/5 Triceps 5/5 Triceps 5/5 Wrist extensors 5/5 Wrist extensors 5/5 Wrist flexors 5/5 Wrist flexors 5/5 Dorsal interossei 5/5 Dorsal interossei 5/5 Abductor pollicis 5/5 Abductor pollicis 5/5 Tone (Mane scale) 0 Tone (Mane scale) 0 Right Lower Extremity: Left Lower Extremity: Hip flexors 3+/5 Hip flexors 3/5 Hip extensors 3+/5 Hip extensors 3/5 Knee flexors 5/5 Knee flexors 3/5 Knee extensors 5/5 Knee extensors 3/5 Dorsiflexors 5/5 Dorsiflexors 4/5 Plantarflexors 5/5 Plantarflexors 4/5 Toe extensors 5/5 Toe extensors 4/5 Toe flexors 5/5 Toe flexors 4/5 Tone (Mane scale) 0 Tone (Mane scale) 0 Reflexes: brachioradialis ++ brachioradialis ++ biceps ++ biceps ++ triceps ++ triceps ++ patellar ++ patellar ++ Achilles + Achilles + Warren's sign absent Warren's sign absent clonus absent clonus absent plantar response down plantar response down Coordination testing in the arms and legs was performed including [id number], rapid-alternating, and fine movements. Coordination testing in the right leg is limited due to pain and weakness. Rapid movements were smooth with good zara and there was no dysmetria or ataxia. No signs of cerebellar dysfunction. Sensory examination: Pinprick: Normal all four extremities. Vibration: Normal bilateral lower extremities. Proprioception: Normal bilateral lower extremities. Romberg's test was normal. Gait was wide based, favoring the right leg. Stress gaits were not attempted. REVIEW OF RECORDS: See ophthalmology reports under scanned documents. REVIEW OF IMAGING STUDIES: No imaging studies were available for review. ASSESSMENT: Ms. Faisal Alegria is a 22 year old woman sent to me due to the presence of bilateral optic disc edema and concern for optic neuritis. Unfortunately, her MRI was not available for me to review but per the note from Dr. Lockwood there were findings in the left optic nerve concerning for optic neuritis versus fluid distention of the optic nerve sheath. She has no symptoms of optic neuritis and my leading suspicion is that she has idiopathic intracranial hypertension. However, for further evaluation I'm going to obtain an MRI of the orbits and will also obtain an MRV to exclude dural venous sinus thrombosis. I'll also ask neuro-ophthalmology to comment on her case. I'll send blood work for potential triggers of optic neuritis, though my suspicion is this is most likely IIH, particularly as the patient is overweight. I discussed the nature of IIH with her and the risk of insidious visual loss and the importance of following through with testing. I also advised her that weight loss can be curative. Finally, I also reviewed with the patient that while I suspect this is largely a benign process, increased intracranial pressure can be dangerous and that the cause of her papilledema has not been completely established thus far. As such, I advised that if she notices any changes in her vision, new headaches, confusion, or other neurologic changes, she should go to the emergency department immediately. She agreed to this. We should also get her reestablished with the epilepsy center and a consultation was placed for this. PLAN: MRI orbits w/wo contrast. MR venogram Refer to neuro ophthalmology Labs: Vit B12, MMA, homocysteine, CIRCULAR SAWYER STONE demyelinating disease evaluation, anti gallo id, ambar by ifa with reflex, cristian/angiotensin, Consider LP depending on results of above. Refer to epilepsy clinic Follow-up after the MRIs and neuro-ophthalmology evaluation. Office Visit on 08/25/22 MRI ORBIT WO/W IVCON MRV BRAIN WO/W IVCON CRISTIAN/ANGIOTENSIN BLD AMBAR BY IFA WITH REFLEX ANTI GALLO ID VITAMIN B12 BLOOD HOMOCYSTEINE METHYLMALONIC ACID CIRCULAR SAWYER STONE DEMYELINATING DISEASE EVALUATION, SERUM CONSULT TO OPHTHALMOLOGY CONSULT TO NEUROLOGY I spent a total of 60 minutes on the date of the service which included preparing to see the patient, [id number] patient care, completing clinical documentation, obtaining and/or reviewing separately obtained history, performing a medically appropriate examination, counseling and educating the patient/family/caregiver, and ordering medications, tests, or procedures. By signing my dame below, I, Anjana José, attest that this documentation has been prepared under the direction and in the presence of Dr. Mackenzie Electronically signed, Leopoldo Morel August 25, 2022 1:49 PM I agree with the Chief Complaint, ROS, and Past Histories independently gathered by the clinical client technical support associate and the remaining scribed note accurately describes my personal service to the patient. Penny Mackenzie MD Staff Neurologist [facility] for Multiple Sclerosis documented in this encounter [facility] 03-12-2022 Note HNO ID: [id number] Author: Yahaira Ramos, DO Service: ? Author Type: Physician Type: Progress Notes Filed: 03/12/2022 4:38 PM Note Text: Faisal Alegria is a 22 year old female who presents with a chief complaint of Follow Up (Check up since miscarriage been a year. Also cant hold urine at times urinates on herself if she don't make it. ) and Amenorrhea (Skips months it comes when it wants too. ) SUBJECTIVE Patient presents complaining of skipping periods. She states that she has skipped 2 months and arrival and then has a heavy period after that. She that this has been going on since her miscarriage last year. She denies any weight gain or problems with facial hair. She also states she had a weak bladder since her miscarriage. PAST MEDICAL HISTORY Diagnosis Date Acid reflux Endometriosis age 11 Fibromyalgia a freshman in high school Lumbar herniated disc Migraines age 4 PAST SURGICAL HISTORY Procedure Laterality Date PAST SURGICAL HISTORY OF lap Social History Tobacco Use Smoking status: Never Smokeless tobacco: Never Tobacco comments: vapes every now and then Vaping Use Vaping Use: Former Substance Use Topics Alcohol use: No Drug use: No FAMILY HISTORY Problem Relation Age of Onset Cancer Maternal Grandfather Fibromyalgia Maternal Grandmother other (carpal tunnel) Maternal Grandmother other (acid reflux) Maternal Grandmother other (obese) Sister Cancer Paternal Grandmother Cancer Paternal Grandfather OB History T0 L0 SAB0 IAB0 Ectopic0 Multiple0 Live Births0 OBJECTIVE ALLERGIES Allergen Reactions Morphine Hives Percocet [Oxycodone* Hives Red Dye Hives Tylenol #3 [Codeine] Hives Current Outpatient Medications Medication Sig Gmbjekwzfmacitx-Emowkbkig-HH (BROMFED DM) 2-30-10 mg/5 mL syrup Take 5-10 ml po q6h prn (Patient not taking: Reported on 03/12/2022) ibuprofen (MOTRIN) 800 mg tablet Take 1 tablet by mouth every 8 hours as needed for Pain. (Patient not taking: No sig reported) cyclobenzaprine (FLEXERIL) 5 mg tablet Take 1 tablet by mouth three times daily. (Patient not taking: No sig reported) miSOPROStol (CYTOTEC) 100 mcg tablet Take 4 tablets by mouth twice daily. (Patient not taking: Reported on 03/02/2021 ) ALBUTEROL INHALATION Albuterol Albuterol Sulfate (Proventil Hfa) 90 mcg/actuation HFA aerosol inhaler Active 2 PUFF INHALATION EVERY 6 HOURS 8.5 June 02, 2020 8:46am 06-02-2020 [facility] ([id number]) (Patient not taking: Reported on 03/12/2022) ondansetron orally disintegrating (ZOFRAN ODT) 4 mg disintegrating tablet (Patient not taking: No sig reported) traMADol (ULTRAM) 50 mg tablet (Patient not taking: No sig reported) potassium chloride ER (K-DUR, KLOR-CON) 20 mEq tablet Potassium Chloride Potassium Chloride [K-Dur] 20 MEQ PO TWICE A DAY 7 June 28, 2018 [facility]28-[facility] [place] ([id number] (Patient not taking: No sig reported) medroxyPROGESTERone (PROVERA, CYCRIN) 10 mg tablet TAKE 1 TABLET BY MOUTH EVERY DAY FOR 10 DAYS (Patient not taking: No sig reported) sertraline (ZOLOFT) 50 mg tablet Take 25 mg by mouth once daily. (Patient not taking: No sig reported) divalproex ER (DEPAKOTE ER) 500 mg 24 hr tablet Take 2 tabs by mouth QHS. (Patient not taking: No sig reported) buPROPion XL (WELLBUTRIN XL) 150 mg 24 hr tablet Take 1 tablet by mouth once daily. (Patient not taking: Reported on 03/12/2022) folic acid 1 mg tablet Take 2 tablets by mouth once daily. (Patient not taking: No sig reported) clonazePAM (KLONOPIN) 0.5 mg tablet Take 1 tablet by mouth for seizures greater than 3 minutes or for 3 or more seizures in 8 hours. Not to exceed 2 doses in 24 hours. busPIRone HCl 7.5 mg tablet Take 7.5 mg by mouth twice daily. (Patient not taking: Reported on 03/12/2022) amitriptyline (ELAVIL) 10 mg tablet Take 10 mg by mouth daily at bedtime. (Patient not taking: No sig reported) No current facility-administered medications for this visit. Review of Systems Constitutional: Denies weight loss, weight gain, fever Eyes: Negative vision changes ENT/Mouth: No ulcers, sinusitis, tinnitus Cardiovascular: Denies STRONG, Edema, palpitations, chest pain Respiratory: Denies wheezing, hemoptysis, SOB, cough Gastrointestinal: Denies diarrhea, bloody stool, constipation Genitourinary: See HPI Musculoskeletal: Denies muscle weakness Skin/breast: Denies discharge, masses, rash, ulcers Neurological: Denies syncope, seizures, numbness Physical Exam BP 121/80 Ht 5' 3 (1.60m) Wt 175 lb 6.4 oz (79.6kg) LMP 08/07/2020 BMI 31.08 kg/(m2). General: No Acute Distress, Well nourished, Well developed, No obvious deformities, and Alert/Oriented x 3 Mood/Affect: Normal HEENT: Normocephalic, Atraumatic, and Grossly Within Normal Limits GI: Abdomen soft, non-tender, no masses, Liver/spleen non-palpable, No hernias, and Normoactive desirae (more content not included)... [facility] 03-12-2022 History of Present illness Narrative Faisal Alegria is a 22 year old female who presents with a chief complaint of Follow Up (Check up since miscarriage been a year. Also cant hold urine at times urinates on herself if she don't make it. ) and Amenorrhea (Skips months it comes when it wants too. ) SUBJECTIVE Patient presents complaining of skipping periods. She states that she has skipped 2 months and arrival and then has a heavy period after that. She that this has been going on since her miscarriage last year. She denies any weight gain or problems with facial hair. She also states she had a weak bladder since her miscarriage. PAST MEDICAL HISTORY Diagnosis Date Acid reflux Endometriosis age 11 Fibromyalgia a freshman in high school Lumbar herniated disc Migraines age 4 PAST SURGICAL HISTORY Procedure Laterality Date PAST SURGICAL HISTORY OF lap Social History Tobacco Use Smoking status: Never Smokeless tobacco: Never Tobacco comments: vapes every now and then Vaping Use Vaping Use: Former Substance Use Topics Alcohol use: No Drug use: No FAMILY HISTORY Problem Relation Age of Onset Cancer Maternal Grandfather Fibromyalgia Maternal Grandmother other (carpal tunnel) Maternal Grandmother other (acid reflux) Maternal Grandmother other (obese) Sister Cancer Paternal Grandmother Cancer Paternal Grandfather OB History T0 L0 SAB0 IAB0 Ectopic0 Multiple0 Live Births0 OBJECTIVE ALLERGIES Allergen Reactions Morphine Hives Percocet [Oxycodone* Hives Red Dye Hives Tylenol #3 [Codeine] Hives Current Outpatient Medications Medication Sig Ywrxmtkbrvfuvoo-Pxrhajkig-SN (BROMFED DM) 2-30-10 mg/5 mL syrup Take 5-10 ml po q6h prn (Patient not taking: Reported on 03/12/2022) ibuprofen (MOTRIN) 800 mg tablet Take 1 tablet by mouth every 8 hours as needed for Pain. (Patient not taking: No sig reported) cyclobenzaprine (FLEXERIL) 5 mg tablet Take 1 tablet by mouth three times daily. (Patient not taking: No sig reported) miSOPROStol (CYTOTEC) 100 mcg tablet Take 4 tablets by mouth twice daily. (Patient not taking: Reported on 03/02/2021 ) ALBUTEROL INHALATION Albuterol Albuterol Sulfate (Proventil Hfa) 90 mcg/actuation HFA aerosol inhaler Active 2 PUFF INHALATION EVERY 6 HOURS 8.5 June 02, 2020 8:46am 06-02-2020 [facility] ([id number]) (Patient not taking: Reported on 03/12/2022) ondansetron orally disintegrating (ZOFRAN ODT) 4 mg disintegrating tablet (Patient not taking: No sig reported) traMADol (ULTRAM) 50 mg tablet (Patient not taking: No sig reported) potassium chloride ER (K-DUR, KLOR-CON) 20 mEq tablet Potassium Chloride Potassium Chloride [K-Dur] 20 MEQ PO TWICE A DAY 7 June 28, 2018 Active 06-28-2018 [facility] ([id number]) (Patient not taking: No sig reported) medroxyPROGESTERone (PROVERA, CYCRIN) 10 mg tablet TAKE 1 TABLET BY MOUTH EVERY DAY FOR 10 DAYS (Patient not taking: No sig reported) sertraline (ZOLOFT) 50 mg tablet Take 25 mg by mouth once daily. (Patient not taking: No sig reported) divalproex ER (DEPAKOTE ER) 500 mg 24 hr tablet Take 2 tabs by mouth QHS. (Patient not taking: No sig reported) buPROPion XL (WELLBUTRIN XL) 150 mg 24 hr tablet Take 1 tablet by mouth once daily. (Patient not taking: Reported on 03/12/2022) folic acid 1 mg tablet Take 2 tablets by mouth once daily. (Patient not taking: No sig reported) clonazePAM (KLONOPIN) 0.5 mg tablet Take 1 tablet by mouth for seizures greater than 3 minutes or for 3 or more seizures in 8 hours. Not to exceed 2 doses in 24 hours. busPIRone HCl 7.5 mg tablet Take 7.5 mg by mouth twice daily. (Patient not taking: Reported on 03/12/2022) amitriptyline (ELAVIL) 10 mg tablet Take 10 mg by mouth daily at bedtime. (Patient not taking: No sig reported) No current facility-administered medications for this visit. Review of Systems Constitutional: Denies weight loss, weight gain, fever Eyes: Negative vision changes ENT/Mouth: No ulcers, sinusitis, tinnitus Cardiovascular: Denies STRONG, Edema, palpitations, chest pain Respiratory: Denies wheezing, hemoptysis, SOB, cough Gastrointestinal: Denies diarrhea, bloody stool, constipation Genitourinary: See HPI Musculoskeletal: Denies muscle weakness Skin/breast: Denies discharge, masses, rash, ulcers Neurological: Denies syncope, seizures, numbness Physical Exam BP 121/80 Ht 5' 3 (1.60m) Wt 175 lb 6.4 oz (79.6kg) LMP 08/07/2020 BMI 31.08 kg/(m^2). General: No Acute Distress, Well nourished, Well developed, No obvious deformities, and Alert/Oriented x 3 Mood/Affect: Normal HEENT: Normocephalic, Atraumatic, and Grossly Within Normal Limits GI: Abdomen soft, non-tender, no masses, Liver/spleen non-palpable, No hernias, and Normoactive bowel sounds Skin: Intact, no lesions ASSESSMENT/PLAN: 1. DUB (dysfunctional uterine bleeding) - ICD9: 626.8, ICD10: N93.8 - TSH BLD - PROLACTIN BLD - HGB A1C - DHEA-S BLD - BIOAVAIL TESTO/SHBG, FEM & CHILD - PELVIC US WHI Yahaira Ramos DO documented in this encounter [facility] 04-29-2022 Hospital Discharge instructions Patient Education 11/20/2021 21:45:22 Depression Depression Depression is one of the most common mental health problems today. It is not just a state of unhappiness or sadness. It is a true disease. The cause seems to be related to a decrease in chemicals that transmit signals in the brain. Having a family history of depression, alcoholism, or suicide increases the risk. Chronic illness, chronic pain, migraine headaches, and high emotional stress also increase the risk. Depression is something we tend to recognize in others, but may have a hard time seeing in ourselves. It can show in many physical and emotional ways: Loss of appetite Overeating Not being able to sleep Sleeping too much Tiredness not related to physical exertion Restlessness or irritability Slowness of movement or speech Feeling depressed or withdrawn Loss of interest in things you once enjoyed Trouble concentrating, poor memory, trouble making decisions Thoughts of harming or killing oneself, or thoughts that life is not worth living Low self-esteem The treatment for depression may include both medicine and psychotherapy. Antidepressants can reduce suffering and can improve the ability to function during the depressed period. Therapy can offer emotional support and help you understand emotional factors that may be causing the depression. Home care Ongoing care and support help people manage this disease. Find a healthcare provider and therapist who meet your needs. Seek help when you feel like you may be getting ill. Be kind to yourself. Make it a point to do things that you enjoy (gardening, walking in nature, going to a movie). Reward yourself for small successes. Take care of your physical body. Eat a balanced diet (low in saturated fat and high in fruits and vegetables). Exercise at least 3 times a week for 30 minutes. Even mild-moderate exercise (like brisk walking) can make you feel better. Don't drink alcohol, which can make depression worse. Take medicine as prescribed. Tell each of your healthcare providers about all of the prescription and cjjt-ivm-hgxqniy medicines, vitamins, and supplements you take. Certain supplements interact with medicines and can result in dangerous side effects. Ask your pharmacist when you have questions about medicine interactions. Talk with your family and trusted friends about your feelings and thoughts. Ask them to help you recognize behavior changes early so you can get help and, if needed, medicine can be adjusted. Follow-up care Follow up with your healthcare provider, or as advised. Call 911 Call 911 if you: Have suicidal thoughts, a suicide plan, and the means to carry out the plan; or serious thoughts of hurting someone else Have trouble breathing Are very confused Feel very drowsy or have trouble awakening Faint or lose consciousness Have new chest pain that becomes more severe, lasts longer, or spreads into your shoulder, arm, neck, jaw, or back When to seek medical advice Call your healthcare provider right away if any of these happen: Feeling extreme depression, fear, anxiety, or anger toward yourself or others Feeling out of control Feeling that you may try to harm yourself or another Hearing voices that others do not hear Seeing things that others do not see Can t sleep or eat for 3 days in a row Friends or family express concern over your behavior and ask you to seek help [phone] [employer] [place] [address]. All rights reserved. This information is not intended as a substitute for professional medical care. Always follow your healthcare professional's instructions. 11/20/2021 21:45:19 Hypokalemia Hypokalemia Hypokalemia means a low level of potassium in the blood. This most often occurs in people who take water pills (diuretics). It can also occur because of severe vomiting or diarrhea. You may also have it if you take laxatives for long periods of time. It sometimes happens if you have low magnesium (hypomagnesemia). If you have this, your healthcare provider will treat the low magnesium first. A mild case of hypokalemia usually causes no symptoms. It is only found with blood testing. More severe potassium loss causes overall weakness, muscle or abdominal cramps, rapid or irregular heartbeats (heart palpitations), low blood pressure, and muscle weakness. Home care Take any potassium supplements as prescribed. Eat foods rich in potassium. The highest amount is found in avocado, baked potatoes, spinach, cantaloupe, cod, halibut, salmon, and scallops. White, red, or canas beans are also very good sources. A modest amount of potassium is found in orange juice, bananas, carrots, and tomato juice. If you take certain types of diuretics, you will also need to take potassium supplements. If you take a diuretic, discuss potassium supplements with your doctor. Follow-up care Follow up with your healthcare provider for a repeat blood test within the next week, or as advised by our staff. When to seek medical advice Call your healthcare provider right away if any of the following occur: Increased weakness, fatigue, or muscle cramps Dizziness Call 911 Call 911 if any of the following occur: Irregular heartbeat, extra beats, or very fast heart rate Loss of consciousness [phone] [employer]. [address] [place] [address]. All rights reserved. This information is not intended as a substitute for professional medical care. Always follow your healthcare professional's instructions. 11/20/2021 21:45:18 Seizure, Recurrent (Adult) Recurrent Seizure (Adult) You have had another seizure today. A common cause of seizures that keep happening (recurrent seizures) is missing doses of seizure medicine. But sometimes seizures are hard to control even when you take the medicine correctly. If this is the case for you, your healthcare provider may need to increase your dosage. Or you may need to add or change to another medicine. Home care Follow these tips when caring for yourself at home. For this seizure: Seizures aren t predictable. So avoid doing anything that might cause danger to you or other people if you have another seizure. Until the seizures are under good control, take these precautions: oDon t drive, ride a motorcycle, or ride a bike. oDon t operate dangerous equipment such as power tools oTake showers instead of baths. oDon t swim or climb ladders, trees, or roofs. Tell your close friends and relatives about your seizure. Teach them what to do for you if it happens again. If medicine was prescribed to prevent seizures, take it exactly as directed. It does not work when taken as needed. Missing doses will increase the risk of having another seizure. If you miss a dose, take the missed dose as soon as you remember. If it is almost time for your next dose, skip the missed dose. Restart the medicine at your next scheduled time. Don t take extra medicine to make up the missed dose. Wear a Medic-Alert bracelet to let emergency personnel know about your condition. Follow a regular sleep schedule such that you get at least 6 to 8 hours of restful sleep every night. This is especially important when you are sick with a cold or flu and/or another type of infection. For future seizures, if you are alone: If you feel a seizure coming on, lie down on a bed or on the floor with something soft under your head. Lie on your left side, not on your back. This will keep you from falling. It will also let fluid drain out of your mouth and prevent choking. Be sure you are clear of any objects that might injure you during the seizure. Call for help if there is time. For future seizures, if someone is with you: The person should help you get into a safe position and call for help. The person shouldn t try to force anything in your mouth once the seizure begins. This could harm your teeth or jaw. Follow-up care Follow up with your healthcare provider. Keep a seizure calendar to record how often you have a seizure. If you are being started on anti-seizure medicine, make sure that you use additional control. Seizure medicine can affect how well control pills work, and you could become . Avoid alcohol until your doctor tells you it s OK. Note: For the safety of yourself and others on the road, certain states require that the treating doctor tell the Public Health Department about any adult who is treated for a seizure and is at risk of more seizures. In this case, the Department of Motor Vehicles will be told. A restriction will be put on your emergency vehicle driver s license until a doctor gives you medical clearance to drive again. Contact your treating doctor to find out if your state requires the reporting of patients with a seizures condition. When to seek medical advice Call your healthcare provider right away if any of these occur: Seizures happen more often or last longer than usual A seizure lasts over 5 minutes You don t wake up between seizures Confusion that lasts more than 30 minutes after a seizure Injury during a seizure Fever over 100.4 F (38.0 C), or as advised Unusual irritability, drowsiness, or confusion Stiff or painful neck Headache that gets worse [phone] [employer]. [address] [place] [address], [place] [address]. All rights reserved. This information is not intended as a substitute for professional medical care. Always follow your healthcare professional's instructions. Follow Up Care 11/20/2021 17:41:14 With:[facility] Address: [address] [place] [id number] When:2-4 days Comments: With:Go to emergency room if symptoms worsen Address:Unknown When:2-4 days With:BRIAN QUINTEROS MD Address: [address] [place] [phone] When:2-4 days [facility] Evaluation + Plan note No data available for this section [facility] documented in this encounter [facility] Work Phone: Evaluation note* Diagnosis DUB (dysfunctional uterine bleeding)- Primary Other disorder of menstruation and other abnormal bleeding from female genital tract documented in [facility] Diagnosis Papilledema- Primary Papilloedema, unspecified Optic neuritis Optic neuritis, unspecified Idiopathic intracranial hypertension Benign intracranial hypertension Nonintractable epilepsy without status epilepticus, unspecified epilepsy type (HCC) documented in this encounter [facility]* Diagnosis Papilledema Papilloedema, unspecified Optic neuritis Optic neuritis, unspecified Idiopathic intracranial hypertension Benign intracranial hypertension documented in this encounter [facility]* Diagnosis Papilledema Papilloedema, unspecified Optic neuritis Optic neuritis, unspecified Idiopathic intracranial hypertension Benign intracranial hypertension documented in this encounter [facility]* Diagnosis Elevation of optic disc, bilateral- Primary Other localized visual field defect, bilateral IIH (idiopathic intracranial hypertension) Benign intracranial hypertension documented in this encounter [facility]* Diagnosis Elevation of optic disc, bilateral IIH (idiopathic intracranial hypertension) Benign intracranial hypertension documented in this encounter [facility]* Diagnosis Elevation of optic disc, bilateral- Primary documented in this encounter [facility]* Diagnosis Lumbar radiculopathy Thoracic or lumbosacral neuritis or radiculitis, unspecified [facility] Diagnosis Radiculopathy of lumbar region [facility] Diagnosis Radiculopathy of lumbar region [facility] Diagnosis Generalized epilepsy (HCC)- Primary Unspecified epilepsy without mention of intractable epilepsy Seizure-like activity (HCC) Other convulsions [facility] Radiculopathy of lumbar region [facility] Diagnosis Lumbar pain- Primary Lumbago [facility]* Attachments The following attachments cannot be sent through Care Everywhere. * Lightheadedness or Faintness (Hong Konger) * Video: Anxiety: How to Change Anxious Thoughts (Hong Konger) documented in this [facility] Work Phone: Progress note No data available for this section [facility] Reason for referral (narrative)* Diagnostic Procedure Only (Routine) - Pending Review Specialty Diagnoses / Procedures Referred By Contac t Referred To Contact [facility] Diagnoses DUB (dysfunctional uterine bleeding) Procedures PELVIC US WHI US PELVIC NONOBSTETRIC REAL-TIME IMAGE COMPLETE Yahaira Ramos DO [address] [place] [address] [facility] [address] [place] [address] Referral ID Status Reason Start Date Expiration Date Visits Requested Visits Authorized [id number] Pending Review Auto-Generat ed Referral 03/12/2022 03/12/[address] [facility] for referral (narrative)* Consultation (Urgent) - Pending Review Specialty Diagnoses / Procedures Referred By Contac t Referred To Contact Pain Medicine Diagnoses Radiculopathy of lumbar region Procedures [place] OFFICE/OUTPATIENT [facility] MDM 60-74 MINUTES Toni Vallejo MD [address] [place] [address] [address] [place] [address] [facility] [address] [place] [address] Referral ID Status Reason Start Date Expiration Date Visits Requested Visits Authorized [id number] Pending Review Perform Procedure 01/10/2023 01/10/2024 1 1 [facility] for referral (narrative)* Outpatient Procedure (Routine) - Pending Review Specialty Diagnoses / Procedures Referred By Contac t Referred To [facility] Diagnoses Generalized epilepsy (HCC) Seizure-like activity (HCC) Procedures EPIL EEG LEAD PLACEMENT EEG EXTENDED MONITORING 61-119 MINUTES ELECTROENCEPHALOGRAM REC COMA/SLEEP ONLY Benny Ryan MD [address] [place] [address] [facility] [place] [address] [place] [id number] Referral ID Status Reason Start Date Expiration Date Visits Requested Visits Authorized [id number] Pending Review Auto-Generat ed Referral 01/20/2023 01/21/2024 [address] 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 Reason for Referral Specialty Diagnoses / Procedures Referred By Contac t Referred To Contact Physical Therapy Diagnoses Lumbar pain Procedures [place] OFFICE/OUTPATIENT [facility] MDM 60-74 MINUTES Toni Vallejo MD 1 [facility] [address] [place] [address] Referral ID Status Reason Start Date Expiration Date Visits Requested Visits Authorized [id number] Pending Review Eval and Treat 02/23/2023 08/22/2023 99 99 Specialty Diagnoses / Procedures Referred By Contac t Referred To Contact Radiology Diagnoses Lumbar radiculopathy Procedures MR lumbar spine w and wo contrast Toni Vallejo MD 1 [facility] [address] [place] [address] Referral ID Status Reason Start Date Expiration Date Visits Re quested Visits Authorized [id number] Closed 12/08/2022 06/06/2023 1 1 Specialty Diagnoses / Procedures Referred By Contac t Referred To Contact Neurology / MULTIPLE SCLEROSIS Diagnoses Nonintractable epilepsy without status epilepticus, unspecified epilepsy type (HCC) Procedures CONSULT TO NEUROLOGY OFFICE/OUTPATIENT [facility] 60-74 MINUTES Penny Mackenzie MD [address] [place] [address] [place] [address] Referral ID Status Reason Start Date Expiration Date Visits Requested Visits Authorized [id number] Authorized PCP Requested Referral 08/25/2022 01/27/2023 1 1 Specialty Diagnoses / Procedures Referred By Contac t Referred To Contact Ophthalmology / MULTIPLE SCLEROSIS Diagnoses Papilledema Optic neuritis Idiopathic intracranial hypertension Procedures CONSULT TO OPHTHALMOLOGY OFFICE/OUTPATIENT [facility] 60-74 MINUTES Penny Mackenzie MD [address] [place] [address] [place] [address] Referral ID Status Reason Start Date Expiration Date Visits Requested Visits Authorized [id number] Authorized PCP Requested Referral 08/25/2022 01/27/2023 1 1 Specialty Diagnoses / Procedures Referred By Contac t Referred To Contact MR IMAGING Diagnoses Papilledema Optic neuritis Idiopathic intracranial hypertension Procedures MRV BRAIN WO/W IVCON MRA; HEAD W & WO CONTRAST Penny Mackenzie MD [address] [place] [address] Mr Imaging Referral ID Status Reason Start Date Expiration Date Visits Requested Visits Authorized [id number] Additional Clinical Info Needed Auto-Generat ed Referral 08/25/2022 09/24/2023 1 1 Specialty Diagnoses / Procedures Referred By Contac t Referred To Contact [facility] IMAGING Diagnoses Papilledema Optic neuritis Idiopathic intracranial hypertension Procedures MRI ORBIT WO/W IVCON MRI ORBIT FACE & NECK W/O & W/CONTRAST MATRL Penny Mackenzie MD [address] [place] [id number] Mr Imaging Referral ID Status Reason Start Date Expiration Date Visits Requested Visits Authorized [id number] Additional Clinical Info Needed Auto-Generat ed Referral 08/25/2022 09/24/2023 1 1 Medications Administered Section Active Administered Medications - up to 3 most recent administrations Medication Order MAR Action Action Date Dose Rate Site PHENYLephrine 2.5 % 1 Drop (AK-DILATE, ELIE-SYNEPHRINE) 1 Drop, BOTH EYES, DIRECTED, Starting on 11/28/22 at 0000, Until Mary 12/09/22 at 2359, Administer for dilation PROTECT FROM LIGHT Given 11/29/2022 9:17 AM EDT 1 Drop tropicamide 1 % 1 Drop (MYDRIACYL) 1 Drop, BOTH EYES, DIRECTED, Starting on 11/28/22 at 0000, Until Mary 12/09/22 at 2359, Administer for dilation Given 11/29/2022 9:17 AM EDT 1 Drop Additional Source Comments INFORMATION SOURCE (unrecogn ized section and content) DATE CREATED AUTHOR AUTHOR'S ORGANIZ ATION 11/13/2020 [employer] DATE CREATED AUTHOR AUTHOR'S ORGANIZ ATION 12/03/2021 [facility] DATE CREATED AUTHOR AUTHOR'S ORGANIZ ATION 11/24/2022 [facility] DATE CREATED AUTHOR AUTHOR'S ORGANIZ ATION 02/11/2023 [facility] DATE CREATED AUTHOR AUTHOR'S ORGANIZ ATION 07/09/2023 [employer] [facility] DATE CREATED AUTHOR AUTHOR'S ORGANIZ ATION 07/28/2023 [facility] Reason for Visit (unrecogniz ed section and content) Reason Comments Follow Up Check up since ayde vacaiage been a year. Also cant hold urine at times urinates on herself if she don't make it. Amenorrhea Skips months it come s when it wants too. Reason Comments New Patient Evaluation Specialty Diagnoses / Procedures Referred By Cristofer t Referred To Contact MR IMAGING Diagnoses Papilledema Optic neuritis Idiopathic intracranial hypertension Procedures MRI ORBIT WO/W IVCON MRI ORBIT FACE & NECK W/O & W/CONTRAST Penny Barillas MD [address] [place] [address] Mr Imaging Referral ID Status Reason Start Date Expiration Date V isits Requested Visits Authorized [id number] Closed Auto-Generate d Referral 08/26/2022 10/25/2022 1 1 Specialty Diagnoses / Procedures Referred By Contac t Referred To Contact MR IMAGING Diagnoses Papilledema Optic neuritis Idiopathic intracranial hypertension Procedures MRV BRAIN WO/W IVCON MRA; HEAD W & WO CONTRAST Penny Mackenzie MD [address] [place] [address] Mr Imaging Referral ID Status Reason Start Date Expiration Date V isits Requested Visits Authorized [id number] Closed Auto-Generate d Referral 08/26/2022 10/25/2022 1 1 Reason Comments Papilledema Evaluation Reason Onset Date Comments Back Pain 12/13/2022 Specialty Diagnoses / Procedures Referred By Contac t Referred To Contact Diagnoses IIH (idiopathic intracranial hypertension) Elevation of optic disc, bilateral Procedures THERAPEUTIC SPINAL PUNCTURE DRAINAGE CSF SPINAL PUNCTURE THERAPEUTIC, DRAIN CSF VIA NEEDLE OR CATH [facility] [address] [place] [address] Referral ID Status Reason Start Date Expiration Date Visits Re quested Visits Authorized [id number] 1 1 Reason Comments R retro-orbital headache optic disc elevation Specialty Diagnoses / Procedures Referred By Contac t Referred To Contact Radiology Diagnoses Lumbar radiculopathy Procedures MR lumbar spine w and wo contrast Toni Vallejo MD [address] [address] Referral ID Status Reason Start Date Expiration Date Visits Re quested Visits Authorized [id number] Closed 12/08/2022 06/06/2023 1 1 Reason Onset Date Comments Error (VOID this visit) 01/10/2023 Reason Onset Date Comments Fast-track injection 01/10/2023 Reason Comments New Patient Epilepsy Reason Comments Other Is EMU admit necessa ry if muscle spasms are caused by Tramadol.? Reason Comments VEEG testing Reason Comments Leg Pain Follow-up Back Pain Care Team (unrecognized sect ion and content) Membership Coordinator Relationship Specialty Start Date End Date Ishmael Vu MD PCP - General Internal Medicine 06/13/18 Membership Coordinator Relationship Specialty Start Date End Date Ishmael Vu MD PCP - General Internal Medicine 06/13/18 Membership Coordinator Relationship Specialty Start Date End Date Ishmael Vu MD PCP - General Internal Medicine 06/13/18 Membership Coordinator Relationship Specialty Start Date End Date Ishmael Vu MD PCP - General Internal Medicine 06/13/18 Membership Coordinator Relationship Specialty Start Date End Date Ishmael Vu MD PCP - General Internal Medicine 06/13/18 Membership Coordinator Relationship Specialty Start Date End Date FarhansadiqVish fongeduardobarry Yepez [address] [place] [address] PCP - General 08/19/20 Membership Coordinator Relationship Specialty Start Date End Date Ishmael Vu MD PCP - General Internal Medicine 06/13/18 Membership Coordinator Relationship Specialty Start Date End Date Ishmael Vu MD PCP - General Internal Medicine 06/13/18 Membership Coordinator Relationship Specialty Start Date End Date Ishmael Vu MD PCP - General Internal Medicine 06/13/18 Membership Coordinator Relationship Specialty Start Date End Date Farhangisella Noledabe B [address] [place] [address] PCP - General 08/19/20 Membership Coordinator Relationship Specialty Start Date End Date Mirella Vishewongbe B [address] [place] [address] PCP - General 08/19/20 Membership Coordinator Relationship Specialty Start Date End Date Olesadiqsandra Vishewongbe B [address] [place] [address] PCP - General 08/19/20 Membership Coordinator Relationship Specialty Start Date End Date Ishmael Vu MD PCP - General Internal Medicine 06/13/18 Membership Coordinator Relationship Specialty Start Date End Date Ishmael Vu MD PCP - General Internal Medicine 06/13/18 Membership Coordinator Relationship Specialty Start Date End Date Ishmael Vu MD PCP - General Internal Medicine 06/13/18 Membership Coordinator Relationship Specialty Start Date End Date Ishmael Vu [address] [place] [address] PCP - General 08/19/20 Membership Coordinator Relationship Specialty Start Date End Date Ishmael Vu PCP - General 08/19/20 Source Comments (unrecognize d section and content) In the event this informatio n is protected by the Federal Confidentiality of Alcohol and Drug Abuse Patient Records regulations: The Federal rules restrict any use of the information to criminally investigate or prosecute any alcohol or drug abuse patient.[facility] the event this information is protected by the Federal Confidentiality of Alcohol and Drug Abuse Patient Records regulations: The Federal rules restrict any use of the information to criminally investigate or prosecute any alcohol or drug abuse patient.[facility] Hospital[facility] the event this information is protected by the Federal Confidentiality of Alcohol and Drug Abuse Patient Records regulations: The Federal rules restrict any use of the information to criminally investigate or prosecute any alcohol or drug abuse patient.[facility] Hospital[facility] the event this information is protected by the Federal Confidentiality of Alcohol and Drug Abuse Patient Records regulations: The Federal rules restrict any use of the information to criminally investigate or prosecute any alcohol or drug abuse patient.[facility] HospitalIn the event this information is protected by the Federal Confidentiality of Alcohol and Drug Abuse Patient Records regulations: The Federal rules restrict any use of the information to criminally investigate or prosecute any alcohol or drug abuse patient.[facility] HospitalIn the event this information is protected by the Federal Confidentiality of Alcohol and Drug Abuse Patient Records regulations: The Federal rules restrict any use of the information to criminally investigate or prosecute any alcohol or drug abuse patient.[facility] HospitalIn the event this information is protected by the Federal Confidentiality of Alcohol and Drug Abuse Patient Records regulations: The Federal rules restrict any use of the information to criminally investigate or prosecute any alcohol or drug abuse patient.[facility] HospitalIn the event this information is protected by the Federal Confidentiality of Alcohol and Drug Abuse Patient Records regulations: The Federal rules restrict any use of the information to criminally investigate or prosecute any alcohol or drug abuse patient.[facility] HospitalIn the event this information is protected by the Federal Confidentiality of Alcohol and Drug Abuse Patient Records regulations: The Federal rules restrict any use of the information to criminally investigate or prosecute any alcohol or drug abuse patient.[facility] HospitalIn the event this information is protected by the Federal Confidentiality of Alcohol and Drug Abuse Patient Records regulations: The Federal rules restrict any use of the information to criminally investigate or prosecute any alcohol or drug abuse patient.[facility] HospitalIn the event this information is protected by the Federal Confidentiality of Alcohol and Drug Abuse Patient Records regulations: The Federal rules restrict any use of the information to criminally investigate or prosecute any alcohol or drug abuse patient.[facility] HospitalIn the event this information is protected by the Federal Confidentiality of Alcohol and Drug Abuse Patient Records regulations: The Federal rules restrict any use of the information to criminally investigate or prosecute any alcohol or drug abuse patient.[facility] FOR RECORDS PERTAINING TO PATIENTS WHO ARE OR HAVE BEEN ENROLLED IN A CHEMICAL DEPENDENCY/SUBSTANCEABUSE PROGRAM, SOME INFORMATION MAY BE OMITTED. This clinical summary was aggregated from multiple sources. Caution should be exercised in using it in the provision of clinical care. This summary normalizes information from multiple sources, and as a consequence, information in this document may materially change the coding, format and clinical context of patient data. In addition, data may be omitted in some cases. CLINICAL DECISIONS SHOULD BE BASED ON THE PRIMARY CLINICAL RECORDS. [facility] [employer] [facility]. provides no warranty or guarantee of the accuracy or completeness of information in this document.
[2023-09-28 22:21] VITALS: PULSE 87; RESP 19; O2SAT 100
[2023-09-28 22:56] VITALS: BP 111/68; PULSE 83; RESP 17; TEMP 36.4; O2SAT 97
== END 2023-09-28 23:00 | disposition home or self-care (01) ==
PROVIDERS: Emergency Provider Emergency Medicine; PCP Internal Medicine; Visit Provider Emergency Medicine
DX: M51.27 Other intervertebral disc displacement, lumbosacral region (principal); R10.9 Unspecified abdominal pain; R11.2 Nausea with vomiting, unspecified; I10 Essential (primary) hypertension; M54.50 Low back pain, unspecified; M79.604 Pain in right leg; G89.29 Other chronic pain
CPT/HCPCS: 74176; 80048; 81001; 84703; 85025; 96361; 96374; 96375; 99283; J7030; A4216; J2405

== ENCOUNTER 2023-11-02 18:05 | Emergency (ER) | payer MEDICAID, SELFPAY ==
[2023-11-02 18:06] VITALS: BP 135/95; PULSE 102; RESP 20; TEMP 36; O2SAT 99
--- NOTE | 2023-11-02 19:35 | MRI_ITS ---
STUDY: MRI LUMBAR SPINE WITHOUT CONTRAST REASON FOR EXAM: Female, 23 years old. cauda equina, back pain TECHNIQUE: Standardized fat and water weighted pulse sequences were obtained in the sagittal and axial planes. COMPARISON: MRI lumbar spine April 27, 2022. Also compared with CT abdomen and pelvis September 28, 2023 FINDINGS: T10-11 and T11-12 degenerative endplate changes without disc herniation. T12-L1: Mild degenerative endplate changes. Normal disc signal and height. No posterior disc herniation. No central spinal canal stenosis. Normal lumbar lordosis. There is no substantial scoliosis. Normal conus medullaris that terminates at the T12-L1 level. L1-2: Small endplate herniation superior endplate of L2. Trace posterior disc bulge. Relatively well-maintained disc signal and height. No central spinal canal or neural foraminal narrowing. No facet arthropathy. L2-3: L3 superior endplate irregularities from endplate herniation pits. The signal and height relatively well maintained with slight posterior disc bulge. No central spinal canal or neural foraminal narrowing. Trace facet and ligamentum flavum thickening without central spinal canal narrowing. L3-4: Small endplate herniation. This superior endplate of L4. Minimal disc height loss with slight posterior disc bulge slightly indenting the anterior thecal sac. No disc herniation. No significant central spinal canal stenosis. There is mild facet hypertrophy and ligamentum flavum thickening minimally narrowing the central spinal canal. L4-5: Endplates are within normal limits. There is disc desiccation and height loss. Small central disc herniation indents anterior thecal sac, similar compared to prior exam. Herniation touches with the descending nerve roots without definite impingement. There is some facet and ligamentum flavum hypertrophy mildly narrowing the central spinal canal posteriorly. L5-S1: Right paracentral disc herniation touches without impinging the descending right S1 nerve root, unchanged compared to prior exam. No neural foraminal narrowing. No significant facet arthropathy. Normal visualized sacral ala. Sacroiliac joints are normal in appearance. Normal visualized paraspinous soft tissue structures. MRI/Spine Lumbar (Routine) IMPRESSION: Unchanged small posterior disc herniations L4-5 and L5-S1 without significant central spinal canal or neural foraminal narrowing. Electronically Signed: Dwayne Go DO at 22:33 EDT ,
--- NOTE | 2023-11-02 19:40 | ED.VIS.BACK ---
HPI History of Present Illness Chief Complaint: Back Narrative Narrative: 23-year-old female past medical history of chronic back pain, anxiety and depression, degenerative disc disease and radiculopathy states that she had a laminectomy performed at [facility] in August of last year. She has had problems ever since. She states that earlier she used to follow with Dr. Meza, but in her words, he would not do anything and told her that surgery was too risky. She had found someone at [facility] to perform the laminectomy. Of note, she was seen in the emergency department in early September, almost 1 month ago and was told to follow-up with her surgeon at [facility]. She states that she did, and was found to have another bulging disc after they performed an x-ray, but was told that they would not perform surgery on her again. She relates history that she is having increased back pain. Her significant other who is with her, states there is times where she will have pain in her back and a burning sensation up the middle of her spine. Additionally, she states that she has been having problems with controlling her bladder. This has been ongoing for weeks however, but gotten worse over the last few days. No fevers or chills, no nausea or vomiting, but she states that she has a sensation to urinate but cannot, then other times she states that she will still feel like she has to urinate and she will continuously stream urine. Additionally, she relates history that because of the pain she has been laying in bed for the past few days. Questionable saddle anesthesia. [facility] Medical History Abdominal discomfort Abdominal pain Acute exacerbation of chronic low back pain Anxiety Anxiety and depression Back problem Change in bowel habit Depression Epilepsy Flu vaccine need Gastroenteritis GERD (gastroesophageal reflux disease) Headache HTN (hypertension) Insomnia Irritable bowel syndrome with diarrhea Nausea and vomiting Seizures Home Medications omeprazole 40 mg capsule,delayed release See Rx Instructions .Route .COMPLEX #90 caps 09/02/23 [Rx Last Taken Unknown] sertraline 100 mg tablet 100 mg PO DAILY #30 tabs 09/21/23 [Rx Last Taken Unknown] norethindrone (contraceptive) 0.35 mg tablet (Stephanie) 0.35 mg PO QDAY #28 tabs 09/27/23 [Rx Last Taken Unknown] tramadol 50 mg tablet 50 mg PO Q4H PRN PRN Pain 5 days #20 tabs 09/28/23 [Rx Last Taken Unknown] tramadol 50 mg tablet 50 mg PO Q6H PRN pain #12 tabs 11/02/23 [Rx Last Taken Unknown] Allergy/AdvReac Type Severity Reaction Status Date / Time Iodinated Contrast Media Allergy Intermediate HIVES, Verified 11/02/23 18:08 SHORT OF BREATH codeine phosphate Allergy Hives Verified 11/02/23 18:08 [From Tylenol-Codeine #3] morphine Allergy Itching Verified 11/02/23 18:08 oxycodone HCl [From Percocet] Allergy Hives Verified 11/02/23 18:08 red dye Allergy Hives Verified 11/02/23 18:08 hydromorphone [From Dilaudid] AdvReac Itching Verified 11/02/23 18:08 Family History Mother Endometriosis Depression with anxiety Grandfather Diabetes Aunt Diabetes Grandfather Cancer unknown CA, passed of Unknown Hypertension High cholesterol Father Depression with anxiety Bipolar 1 disorder Surgical History H/O laparoscopy History of laminectomy Social History Smoking Status: Heavy Smoker (>10/day) Electronic Cigarette Use: with nicotine alcohol intake: never substance use type: does not use caffeine: Yes what type of physical activity do you participate in: none seatbelt use: always do you feel safe at home: Yes additional social history: Single-[facility] ROS ROS ED ROS Narrative Constitutional: No fever, no chills. HEENT: No sore throat. No neck pain. No loss of vision. No rhinorrhea. Cardiovascular: No chest pain. No palpitations. No pedal edema. Respiratory: No cough, no shortness of breath. Abdominal: No abdominal pain. No nausea. No vomiting. Genitourinary: No dysuria. No hematuria. Problems with bladder control. Musculoskeletal: No myalgias. No arthralgias. Positive low back pain with radiation down right leg. Neurologic: No headaches. No dizziness. No lightheadedness. Skin: No rash. No change in color. Psychiatric: No depression. No anxiety. EXAM Physical Exam Narrative Exam Narrative: Afebrile. Vital signs noted. HEENT: Normocephalic. Atraumatic. PERRL, EOMI. Neck soft and supple. No point tenderness or step off. Cardiovascular: Regular rate and rhythm with intermittent tachycardia. No murmurs, rubs, or gallops appreciated. Respiratory: No tachypnea. Lungs clear to auscultation bilaterally. Gastrointestinal: Abdomen soft, nontender, with normoactive bowel sounds. No rebound or guarding. Neurological: Awake. Alert. Nonfocal, nonlateralizing. Able to sit up and ambulate and stand without difficulty. EHL intact bilaterally. Negative cross symptoms for straight leg raising. Able to raise right leg off bed. Chaperoned rectal examination shows normal rectal tone/sphincter tone. Skin: No rash. Normal color. No pallor. Musculoskeletal: No pedal edema. Full range of motion extremities. Const Vital Signs: 11/02/23 18:06 11/02/23 20:06 11/02/23 22:00 Temperature 96.8 F L Temperature Source Temporal Pulse Rate 102 H 62 64 Respiratory Rate 20 H 16 18 Blood Pressure 135/95 H 136/89 H 128/76 H Blood Pressure Mean 108 104 93 Pulse Ox 99 97 98 Oxygen Delivery Method Room Air Room Air Room Air MDM MDM MDM Narrative Medical decision making narrative: In the differential diagnosis is cauda equina versus discitis versus chronic lumbar radiculopathy/acute on chronic. I reviewed the patient's prior records. She was supposed to follow-up with her surgeon. She states she did. She is relating history that she is having loss of bladder control. She has questionable saddle anesthesia. She has increased pain in her back. Also in review of her problem list, she lists cauda equina syndrome. Given her history, emergent MRI will be ordered. She was seen being able to stand and change into a gown and transfer. Additionally, I reviewed her prior ED visits and she received Dilaudid for pain although she lists it as an allergy currently along with codeine and morphine and oxycodone. She will be given 50 mcg of fentanyl intravenously for analgesia. I reviewed the laboratory work from today and her urinalysis shows no evidence of infection. I do not feel antibiotics are indicated. She has normal white count of 8.2. Hemoglobin normal at 13.5. Serum is negative. Electrolyte panel is grossly unremarkable. I did do a chaperoned rectal examination and she was able to transfer and turn to her right side without difficulty, and she was able to bend and sit up. Given her clinical examination, I have a lower suspicion for cauda equina or discitis. I think she is probably having chronic radicular pain. Patient states that she had a miscarriage in 2020, and she has been having problems with urination since then. She was told by her baby attendant that there could have been some relationship to this. I reviewed the radiology report of the MRI of the lumbar spine. She has small posterior disc bulging at L4-L5 and L5-S1. It is unchanged from previous MRI. At this point in time, I do think it is probably more of a matter of pain control with her. She should follow-up with her spine surgeon at [facility]. I will write her prescription for 12 tramadol given her multiple allergies to oral medications. I did discuss with her that she may need to enter pain management as well. I feel she can be discharged given her negative MRI, and her normal clinical examination currently. Disposition is discharged home in stable condition. History & Record Review Discussion w/independent historian: Patient and Significant other Additional record(s) reviewed:: Prior ED visit Lab Data Attestation: I reviewed the patient's lab results. Labs: Laboratory Results - last 24 hr 11/02/23 11/02/23 11/02/23 20:00 20:00 20:25 WBC Cancelled Corrected WBC Cancelled RBC Cancelled Hgb Cancelled Hct Cancelled MCV Cancelled MCH Cancelled MCHC Cancelled RDW Std Deviation Cancelled RDW Coeff of Danis Cancelled Plt Count Cancelled MPV Cancelled Immature Gran % (Auto) Cancelled Neut % (Auto) Cancelled Lymph % (Auto) Cancelled [place] % (Auto) Cancelled Eos % (Auto) Cancelled Baso % (Auto) Cancelled Absolute Neuts (auto) Cancelled Absolute Lymphs (auto) Cancelled Total Counted Cancelled Neutrophils % (Manual) Cancelled Band Neutrophils % Cancelled Lymphocytes % (Manual) Cancelled Monocytes % (Manual) Cancelled Eosinophils % (Manual) Cancelled Basophils % (Manual) Cancelled Metamyelocytes % Cancelled Myelocytes % Cancelled Promyelocytes % Cancelled Blast Cells % Cancelled Plasma Cell % (Manual) Cancelled Other Cells % Cancelled Nucleated RBC % Cancelled Nucleated RBCs/100 WBC Cancelled Differential Comment Cancelled Diff Path Review Cancelled Hypersegmented Neuts Cancelled Atypical Lymphocytes Cancelled Reactive Lymphocytes Cancelled Smudge Cells Cancelled Toxic Granulation Cancelled Toxic Vacuolation Cancelled Dohle Bodies Cancelled Mindy Rods Cancelled Platelet Estimate Cancelled Plt Morphology Comment Cancelled RBC Morphology Cancelled Cancelled Polychromasia Cancelled Hypochromasia Cancelled Basophilic Stippling Cancelled Anisocytosis Cancelled Microcytosis Cancelled Macrocytosis Cancelled Spherocytes Cancelled Sickle Cells Cancelled Target Cells Cancelled Tear Drop Cells Cancelled Ovalocytes Cancelled Stomatocytes Cancelled Ornelas-Atco Bodies Cancelled Otis Cells Cancelled Bite Cells Cancelled Crenated Cell Cancelled Acanthocytes (Spur) Cancelled Rouleaux Cancelled Schistocytes Cancelled Sodium Cancelled Potassium Cancelled Chloride Cancelled Carbon Dioxide Cancelled Anion Gap Cancelled BUN Cancelled Creatinine Cancelled Estim Creat Clear Calc Cancelled Est GFR (MDRD) Af Amer Cancelled Est GFR (MDRD) Non-Af Cancelled BUN/Creatinine Ratio Cancelled Glucose Cancelled Calcium Cancelled Serum , Qual Cancelled Urine Color Yellow Urine Clarity Clear Urine pH 6.5 Ur Specific [place] 1.020 Urine Protein 15 H Urine Glucose (UA) Normal Urine Ketones Negative Urine Occult Blood 10 H Urine Nitrite Negative Urine Bilirubin Negative Urine Urobilinogen Normal Ur Leukocyte Esterase Negative Urine RBC 0-5 SEEN Urine WBC 0-5 SEEN Ur Squamous Epith Cells 0-5 SEEN Urine Bacteria 1+ Urine Mucus 0 SEEN 11/02/23 20:44 WBC 8.2 Corrected WBC RBC 4.50 Hgb 13.5 Hct 41.6 MCV 92.4 MCH 30.0 MCHC 32.5 RDW Std Deviation 48.1 H RDW Coeff of Danis 14.1 Plt Count 284 MPV 9.8 Immature Gran % (Auto) 0.500 Neut % (Auto) 58.8 Lymph % (Auto) 31.9 [place] % (Auto) 7.1 Eos % (Auto) 1.1 Baso % (Auto) 0.6 Absolute Neuts (auto) 4.8 Absolute Lymphs (auto) 2.61 Total Counted Neutrophils % (Manual) Band Neutrophils % Lymphocytes % (Manual) Monocytes % (Manual) Eosinophils % (Manual) Basophils % (Manual) Metamyelocytes % Myelocytes % Promyelocytes % Blast Cells % Plasma Cell % (Manual) Other Cells % Nucleated RBC % 0 Nucleated RBCs/100 WBC Differential Comment Diff Path Review Hypersegmented Neuts Atypical Lymphocytes Reactive Lymphocytes Smudge Cells Toxic Granulation Toxic Vacuolation Dohle Bodies Mindy Rods Platelet Estimate Plt Morphology Comment RBC Morphology Polychromasia Hypochromasia Basophilic Stippling Anisocytosis Microcytosis Macrocytosis Spherocytes Sickle Cells Target Cells Tear Drop Cells Ovalocytes Stomatocytes Ornel[place] Bodies Francis Cells Bite Cells Crenated Cell Acanthocytes (Spur) Rouleaux Schistocytes Sodium 139 Potassium 3.6 Chloride 106 Carbon Dioxide 26.0 Anion Gap 7 BUN 16 Creatinine 0.77 Estim Creat Clear Calc 118.84 Est GFR (MDRD) Af Amer 117 Est GFR (MDRD) Non-Af 97 BUN/Creatinine Ratio 20.8 H Glucose 97 Calcium 9.7 Serum , Qual NEGATIVE Urine Color Urine Clarity Urine pH Ur Specific [place] Urine Protein Urine Glucose (UA) Urine Ketones Urine Occult Blood Urine Nitrite Urine Bilirubin Urine Urobilinogen Ur Leukocyte Esterase Urine RBC Urine WBC Ur Squamous Epith Cells Urine Bacteria Urine Mucus Radiography Diagnostic Testing: Clinical Impression(s) from Imaging Studies Lumbar Spine MRI 11/02/23 19:35 IMPRESSION: Unchanged small posterior disc herniations L4-5 and L5-S1 without significant central spinal canal or neural foraminal narrowing. Electronically Signed: Dwayne Go DO at 22:33 EDT Reading Location ID and State: [facility] / [place] Tel , Service support , Discharge Plan Triage Chief Complaint: Back ED Provider: Aki Kenyon Dx/Rx/DC Orders Clinical Impression: Acute exacerbation of chronic low back pain, Lumbar back pain with radiculopathy affecting right lower extremity Instructions: ED Back Pain (Acute or Chronic), ED Chronic Pain, ED Sciatica Prescriptions: New tramadol 50 mg tablet 50 mg PO Q6H PRN (Reason: pain) Qty: 12 0RF No Action norethindrone (contraceptive) [Stephanie] 0.35 mg tablet 0.35 mg PO QDAY Qty: 28 3RF tramadol 50 mg tablet 50 mg PO Q4H PRN PRN (Reason: Pain) 5 Days Qty: 20 0RF omeprazole 40 mg capsule,delayed release(DR/EC) See Rx Instructions .ROUTE .COMPLEX Qty: 90 0RF Dose Instruction: 40 MG ORALLY DAILY Rx Instructions: 40 MG ORALLY DAILY sertraline 100 mg tablet 100 mg PO DAILY Qty: 30 0RF Primary Care Provider: Mina Vu Referrals: Mina Vu MD [Primary Care Provider] - As soon as possible Disposition Disposition: Home, Self Care
[2023-11-02 20:06] VITALS: BP 136/89; PULSE 62; RESP 16; O2SAT 97
[2023-11-02] MEDS: fentaNYL 100 MCG/2 ML Ampul 50 MCG IV (20:21)
[2023-11-02 20:22] VITALS: BMI 35.1
[2023-11-02 20:33] LABS: Mucous, Urine 0 SEEN /hpf (<or=2+)
[2023-11-02 20:48] LABS: Color, Urine Yellow (Yellow); Glucose, Dipstick Normal (Normal); Ketone-Dipstick Negative (Negative); Leukocyte Esterase-Dipstick Negative /ul (Negative); Nitrite-Dipstick Negative (Negative); Occult Blood-Urine 10 /ul (Negative); Protein-Dipstick 15 mg/dl (Negative); Urine Bilirubin Dipstick Negative (Negative); Urine Clarity Clear (Clear); Urine Urobilinogen Normal (Normal); Urine pH 6.5 (5.0 - 8.0)
[2023-11-02 20:49] LABS: Absolute Lymphocyte Count 2.61 X10^3/uL (0.83-4.51); Absolute Neutrophil Count 4.8 X10^3/uL (2.0-7.7); Basophil# 0.05 X10^3/uL; Basophil% 0.6 % (0-1); Eosinophil# 0.09 X10^3/uL; Eosinophils% 1.1 % (0-5); Hematocrit 41.6 % (37-47); Hemoglobin 13.5 g/dL (12.0-15.0); Lymphocyte # 2.61 X10^3/ul (0.83-4.51); Lymphocyte % 31.9 % (19-41); Mean Corp Hgb Conc 32.5 g/dL (32-36); Mean Corpuscular Volume 92.4 fL (81-99); Mean Platelet Vol. 9.8 fl (6.2-12.0); Monocyte# 0.58 X10^3/uL; Monocyte% 7.1 % (0-10); NRBC Flagged by Analyzer 0 % (0-5); Neutrophil # 4.82 X10^3/uL (2.7-7.7); Neutrophil % 58.8 % (47-70); Platelet Count 284 K/mm3 (150-450); RBC Distribution Width CV 14.1 % (11.6-14.6); RBC Distribution Width SD 48.1 fl (35.1-43.9); White Blood Count 8.2 K/mm3 (4.4-11.0)
[2023-11-02 20:59] LABS: Bacteria 1+ /hpf (None Seen)
[2023-11-02 21:00] LABS: Red Blood Cells-Urine 0-5 SEEN /hpf (0-5); Squamous Epithelial Cells - UA 0-5 SEEN /hpf (5-10); White Blood Cells 0-5 SEEN /hpf (0-5)
[2023-11-02 21:02] LABS: Anion Gap 7 (5-15); BUN 16 mg/dL (7-18); BUN/Creat Ratio 20.8 RATIO (10-20); Calcium,Total 9.7 mg/dL (8.5-10.1); Chloride 106 mmol/L (98-107); Creatinine, Serum 0.77 mg/dL (0.55-1.02); EST Glomerular Filtration Rate 97 mL/min (>60); Est Glom Filt Rate - Afr Amer 117 mL/min (>60); Estimated Creatinine Clearance 118.84 ml/min; Glucose 97 mg/dL (74-106); Potassium 3.6 mmol/L (3.5-5.1); Sodium Level 139 mmol/L (136-145)
[2023-11-02 21:05] LABS: Internal QC Validated? YES +Cl - CLEAR BKGD; Pregnancy, Serum, hCG Quali. NEGATIVE Negative
[2023-11-02 22:00] VITALS: BP 128/76; PULSE 64; RESP 18; O2SAT 98
[2023-11-02 22:48] VITALS: BP 132/69; PULSE 67; RESP 16; TEMP 36.7; O2SAT 97
--- NOTE | 2023-11-02 22:50 | ED.RN ---
2251: Patient given discharge instructions with significant other at bedside. Patient removed IV herself, prior to me giving d/c instructions. Site dressed with bandage, but unable to assess angiocath to see if intact.
== END 2023-11-02 22:51 | disposition home or self-care (01) ==
PROVIDERS: Emergency Provider Emergency Medicine; PCP Internal Medicine; Visit Provider Emergency Medicine
DX: M51.16 Intervertebral disc disorders with radiculopathy, lumbar region (principal); G89.29 Other chronic pain; R32 Unspecified urinary incontinence; I10 Essential (primary) hypertension; K21.9 Gastro-esophageal reflux disease without esophagitis; F32.A Depression, unspecified; F41.9 Anxiety disorder, unspecified; F17.290 Nicotine dependence, other tobacco product, uncomplicated; Z79.899 Other long term (current) drug therapy
CPT/HCPCS: 72148; 80048; 81001; 84703; 85025; 96374; 99284; A4216

== ENCOUNTER 2024-01-17 09:42 | Outpatient (RCR) | payer MEDICAID, SELFPAY ==
--- NOTE | 2024-01-25 16:43 | HP.OTFCE_ITS ---
Task Lift Floor PDL: No Ability Knee PDL: No Ability Waist PDL: Sedentary Shoulder PDL: No Ability Overhead PDL: No Ability Work Activity/Posture Bending: Occasional Ability (1-33% of day) Comments: with use of external support low occasional ability Squatting: Occasional Ability (1-33% of day) Comments: with use of external support low occasional ability Kneeling: Occasional Ability (1-33% of day) Reaching out: Occasional Ability (1-33% of day) Comments: while sitting Reaching up: Occasional Ability (1-33% of day) Comments: while sitting Sitting: No Ablility (0% of day) Walking: Occasional Ability (1-33% of day) Standing: Occasional Ability (1-33% of day) Reference Reference: Duration Sedentary Sedentary Light Light Light Medium Medium Medium Heavy Very Heavy Heavy Occasional (0-33% of day) Frequent (34-66% of day) Constant (67-100% of day) 10 # Negligible Negligible 15 # 8 # Negligible 20 # 10# Negli. 35 # 18 # 7 # 50 # 25 # 10 # 75 # 100 # >100 # 38 # 50 # >50 # 15 # 20 # >20 # Patient Information Height: 1.6 m Weight:: 72.575 kg Hand Dominance: right Medical History Medical History Including Restrictions: Pt states she had increase back pain since she was [age] years old. Pt states pain continued to get worse. pt states she was seeing a chiropractor in [id number] pt states she would see him every day and sometimes more. pt states she went to see Dr. King for pain mtg. Pt states she had 8 spine injections. pt states she started to reject the injections. Last she did see him was November of 2022 Pt went to see Dr. Yaya Vallejo this did MRI and X-ray ( done in 2022) Pt underwent laminectomy 2022. Pt states right after surgery she did not have pain and noticed her pain increased over the weeks and months. Pt states she underwent 8 weeks of Physical therapy but due to increase pain she was unable to participate in therapy ( about 5 weeks having therapy). pt at 4 months out from surgery: pt states her surgeon will not do surgery due to she is still healing pt states she does not exercise on a regular basis. pt states she had a still in 2020 # pt states does not want her to lift anything over 50# Diagnoses Diagnoses: DDD ( dx 202) Fibromyalgia (dx 2022) Scoliosis (dx 202) Disc herniation Leaning disorders Comprehension disorder Symptoms Symptoms: incontinences feeling of nausea Pain weakness right leg weakness Pain Pain: pt states she takes 800 Mg of Ibphriprohin ( just 1 x a day) sleeps with pillow between legs at night. pt states she has a burning sensation all the time. pt states she thinks she remembers in PT using tens unit- pts reported pain Work History Work History: Pt states she was employed at [employer] pt states she was only employed for about 8 weeks due to her limited ability to perform the job duties. 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 pt states she works about 2 hours pt states she worked at [employer] for three months- pt states she was required to stand and she was unable to perform her job duties. 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 Behavioral Behavioral: pt demo with flat affect and verbalizes discomfort with all movement. ADLS ADLS: Pt states she lives with her Grandparents in a two story home, no steps for entry. pts bedroom and bathroom is on the 2nd floor (pt states about 10 steps with handrail on the right side) Bathroom is a walk in shower on 2nd floor. Does use a shower chair. pt states she Drives Ind. pt states laundry she folds and puts away her clothes ( her grandmother will do her laundry for her and carry it to her room) pt states she tries to cook- will put items in the oven as she can not stand for cooking. pt states with shopping she does use a scooter to get around the store. pt states she can not bush jeans- has to wear leggings or sweat pants- states she can not get the up. Physical Examination ROM: pt demo with limited lumbar flexion due to pain. pt demo all other ROM WFL Strength: Fet2 peak force comparing right to left Shoulder flexion right 9# left 6# shoulder extension right 9# left 18# Biceps right 15.3# left 17.4# triceps right 12# left 19# Hip flexion right 14.2# left 17.2# Quadriceps right 6.9# left 15.5# Hamstrings right 10.6# left 19.8# pt demo with right side LE weakness comparing to left Right Pension Manager Strength Average: 28.33 Right Pension Manager Strength Percentile: .1% Left Pension Manager Strength Average: 58.33 Left Pension Manager Strength Percentile: 36% Right Lateral Pinch Average: 8.66 Right Lateral Pinch Percentile: <10% Left Lateral Pinch Average: 20.00 Left Lateral Pinch Percentile: >90% Right Tripod Pinch Average: 3.33 Right Tripod Pinch Percentile: <10% Left Tripod Pinch Average: 10.00 Left Tripod Pinch Percentile: 10% Comments: pt demo with right vendor relationship manager and pinch weakness : no reported issues/injury or trauma history to right UE/hand/digits with right UE but significant weakness vs left. Sensation: denies Fine Motor: denies issues Balance: Functional reach testing for balance pt demo a functional reach of 4 Interpretation: A score of 6 or less indicates a significant increased risk for falls. A score between 6-10 inches indicates a moderate risk for falls References: 1. DEACON Huynh, Deyanira BARNES, Abrahan Ye, Ant S. Functional reach: A new clinical measure of balance. J Gerontol. 1990; 45:M192. 2. DEACON Huynh, et al: Functional reach: Predictive validity in a sample of elderly male veterans. J Gerontol. 1992; 47:M93. 3. DIANNA Clifton, et al: Functional reach and single leg stance in patients with peripheral vestibular disorders. J Vestib Res. 1996; 6:343. 4. CAMERON Mcmillan, et al: Does functional reach improve with rehabilitation. Arch Phys Med Rehab. 1993; 74:796. Non Material Handling Activities Bending: pt demo the ability to bend forward 3/3x and 4/10x while holding on table top- she felt like her right side was going to give out on her and needed to sit down. heart rate 78 pain 9/10 pt unable to complete further testing she was fear full she would end up on floor. pt can perform with external support on low occasional ability Squatting: pt demo the ability to squat 2/3 x with use of external support. chair behind pts- she did go to sit rapidly with 3rd squat and slid to floor. heart rate 103 following pt able to return to standing using chair for support. pt states she falls a lot. pt can squat with external support on low occasional ability Kneeling: unable Reaching out/up: pt demo the ability to reach up 3/3x, 10/10x and 10/10x rapidly pt completed while sitting heart rate 81 following pt states pain 9/10 pt demo the ability to reach out 3/3x, 10/10x and 10/10x rapidly pt completed while sitting states pain 9/10 right side low back hip and down her right leg. heart rate 81 pt can reach up/out on occasional ability Walking: pt demo the ability to ambulate with a antalgic gait pattern - pt ambulated 300 feet x 2 with reports of pain 9/10 reporting burning sensation down right LE. pt can ambulate on occasional ability Standing: pt demo the ability to stand for 3 min and then started shifting her bodyweight- states right leg will tingle and this increases pain pt can stand on occasional ability Sitting: pt demo the ability to sit for 40 min with shifting body weight x1 pt states she typically only can sit for about 30 min pt can sit on occasional ability Climbing Stairs: pt states she will crawl up steps or scoot down on her bottom this was not tested in clinic as pt with report of pain 9/10 and having difficulty with test due to pain. Dynamic Occasional Lifting Capacity Floor Lift: pt attempted to lift from this level and once she got in squat position and was in this position for 20 seconds- she then demo controlled fall to floor onto right side (hip/buttock region) pt was able to get self up from floor using chair- states that this happens all the time to her. pt demo no ability to lift from this level. Knee Lift: unable Waist Lift: pt demo the ability to lift 15# maximally from waist level. pt did use counter top for support. pt demo lift with fair lifting mechanics. Shoulder Lift: unable Overhead Lift: unable Carrying: unable Comments: Throughout session pt reported pain 9/10. pt maintained a flat affect during assessment. heart rate ranged from 78-103 pt demo with a right side weakness both in UB and LB pts pain limiting pts safe performance of assessment
--- NOTE | 2024-01-25 16:43 | HP.OTFCE.D ---
FCE D/C Summary Discharge text: FAISAL FERNÁNDEZ was seen for a one time visit for an FCE on 01/17/24 and is discharged.
== END 2024-01-17 19:00 | disposition home or self-care (01) ==
LOC: OT 09:42
PROVIDERS: PCP Internal Medicine; Referring Provider Internal Medicine; Visit Provider Internal Medicine
DX: Z02.71 Encounter for disability determination (principal)
CPT/HCPCS: 97750

== ENCOUNTER 2024-04-24 12:03 | Emergency (ER) | payer MEDICAID, SELFPAY ==
[2024-04-24 12:05] VITALS: BP 133/91; PULSE 80; RESP 26; TEMP 37.3; O2SAT 97; BMI 37.4
--- NOTE | 2024-04-24 12:28 | EDS_ITS ---
HPI History of Present Illness Chief Complaint: Shortness of Breath Informant: patient Onset/Context/Timing Onset: Today Context: sudden Timing: Continuous Quality: Positive for Dyspnea on exertion Worsened by: Exertion Relieved by: Nothing Associated Symptoms Negative for cough, rhinorrhea, post nasal drip, ear pain, fever, sore throat, chills, sweats, clear sputum, white sputum, yellow sputum or green sputum Chest Pain: Positive for Pressure (Heaviness) Narrative Narrative: Patient presents with shortness of breath, dizziness, and chest pain that began this morning. Patient states she got up to go to the bathroom and was having some shortness of breath. Patient states she also feels like the room is spinning.. Patient states she was having difficulty ambulating because of this. Patient states I do not feel right. Patient admits to some nausea and vomiting. Patient also admits to some back pain. Patient denies any cough. Patient denies any fevers or chills. [facility] Medical History History of gestational hypertension Disability examination Change in bowel habit GERD (gastroesophageal reflux disease) Gastroenteritis Irritable bowel syndrome with diarrhea Anxiety and depression Seizures Acute exacerbation of chronic low back pain Insomnia Epilepsy HTN (hypertension) Headache Back problem Anxiety Abdominal pain Home Medications ?Medication ?Instructions ?Recorded ?Last Taken ?Type ibuprofen 800 mg tablet 800 mg PO TID PRN pain #30 tabs 11/16/23 Unknown Rx cariprazine 1.5 mg (1)-3 mg (6) See Rx Instructions PO .COMPLEX #7 12/15/23 Unknown Rx capsules in a dose pack caps cariprazine 3 mg capsule 3 mg PO DAILY #30 caps 12/15/23 Unknown Rx norethindrone (contraceptive) 0.35 0.35 mg PO QDAY #84 tabs 02/21/24 Unknown Rx mg tablet (Stephanie) omeprazole 40 mg capsule,delayed See Rx Instructions .Route 02/24/24 Unknown Rx release .COMPLEX #90 caps sertraline 100 mg tablet 100 mg PO DAILY #90 tabs 02/24/24 Unknown Rx trazodone 50 mg tablet 50 mg PO QHS PRN insomnia #10 tabs 04/24/24 Unknown Rx Allergy/AdvReac Type Severity Reaction Status Date / Time Iodinated Contrast Media Allergy Intermediate HIVES, Verified 04/24/24 12:05 SHORT OF BREATH tramadol Allergy Intermediate itching Verified 04/24/24 12:05 codeine phosphate (From Allergy Hives Verified 04/24/24 12:05 Tylenol-Codeine #3) morphine Allergy Itching Verified 04/24/24 12:05 oxycodone HCl (From Percocet) Allergy Hives Verified 04/24/24 12:05 red dye Allergy Hives Verified 04/24/24 12:05 hydromorphone (From Dilaudid) AdvReac Itching Verified 04/24/24 12:05 Family History Mother Endometriosis Depression with anxiety Grandfather Diabetes Aunt Diabetes Grandfather Cancer unknown CA, passed of Unknown Hypertension High cholesterol Father Depression with anxiety Bipolar 1 disorder Surgical History History of laminectomy H/O laparoscopy Social History Smoking Status: Current some day smoker tobacco type: e-cigarettes Electronic Cigarette Use: with nicotine alcohol intake: never substance use type: does not use caffeine: Yes what type of physical activity do you participate in: none seatbelt use: always do you feel safe at home: Yes additional social history: [facility] ROS ROS ED Constitutional Constitutional ED: Denies chills or fever(s) Eyes Eyes: Denies blurry vision or change in vision ENT ENT ED: Denies rhinorrhea or sore throat Cardiovascular Cardiovascular: Reports chest pain; Denies palpitations Respiratory/Chest Respiratory/Chest: Reports dyspnea; Denies cough Gastrointestinal Gastrointestinal: Reports nausea and vomiting Genitourinary Genitourinary ED: Denies dysuria or hematuria Musculoskeletal Musculoskeletal: Reports back pain; Denies neck pain Integumentary Denies abscess or rash Neurologic Neurologic: Denies headache(s) or weakness Allergic/Immunologic Allergic/Immunologic ED: Denies mouth swelling or urticaria EXAM Physical Exam Const Vital Signs: 04/24/24 12:05 04/24/24 12:10 04/24/24 14:04 Temperature 99.2 F H Temperature Source Oral Pulse Rate 80 81 Pulse Rate [Lying] Pulse Rate [Sitting (for 1 minute prior to obtaining)] Pulse Rate [Standing (for 1 minute prior to obtaining)] Respiratory Rate 26 H 18 Respiratory Effort Normal Respiratory Pattern Tachypnea Blood Pressure 133/91 H 132/94 H Blood Pressure [Lying] Blood Pressure [Sitting (for 1 minute prior to obtaining)] Blood Pressure [Standing (for 1 minute prior to obtaining)] Blood Pressure Mean 105 106 Blood Pressure Mean [Lying] Blood Pressure Mean [Sitting (for 1 minute prior to obtaining)] Blood Pressure Mean [Standing (for 1 minute prior to obtaining)] Pulse Ox 97 98 Oxygen Delivery Method Room Air Room Air 04/24/24 15:00 Temperature Temperature Source Pulse Rate Pulse Rate [Lying] 74 Pulse Rate [Sitting (for 1 minute prior to obtaining)] 71 Pulse Rate [Standing (for 1 minute prior to obtaining)] 77 Respiratory Rate Respiratory Effort Respiratory Pattern Blood Pressure Blood Pressure [Lying] 128/77 H Blood Pressure [Sitting (for 1 minute prior to obtaining)] 127/81 H Blood Pressure [Standing (for 1 minute prior to obtaining)] 127/86 H Blood Pressure Mean Blood Pressure Mean [Lying] 94 Blood Pressure Mean [Sitting (for 1 minute prior to obtaining)] 96 Blood Pressure Mean [Standing (for 1 minute prior to obtaining)] 99 Pulse Ox Oxygen Delivery Method Positive well nourished and well developed General Appearance ED: well developed and NAD HEENT Reports moist mucous membranes Neck supple, no meningeal signs and no JVD Resp normal respiratory effort and clear to auscultation bilaterally Cardio regular rate and regular rhythm GI non-tender and non-distended Palpation: soft Extremity normal to inspection General Extremety ED: Negative for edema or tenderness General Extremity: Negative for edema Neuro oriented x3, CN's II-XII intact bilaterally and no sensory deficits noted [place] Coma Scale: document GCS findings Spontaneous Obeys Commands Oriented 15 Sensorium / Orientation: alert Motor Exam: strength 5/5 throughout Psych Mood & Affect: anxious MDM MDM MDM Narrative Medical decision making narrative: Nicotine cessation was discussed. Differential diagnosis includes vertigo, labyrinthitis, pneumonia, cardiac dysrhythmia, cardiac ischemia, gastritis, gastroesophageal reflux disease, and anxiety. EKG will be obtained to assess for cardiac dysrhythmia and cardiac ischemia. Chest x-ray will be obtained to assess for pneumonia and pneumothorax. CBC will be obtained to assess for le ukocytosis and anemia. Comprehensive metabolic profile will be obtained to assess for hepatic function, renal function, and electrolyte abnormality. Lipase will be obtained to assess for pancreatitis. Urinalysis will be obtained to assess for urinary tract infection and hematuria. Lab Data Attestation: I reviewed the patient's lab results. Lab results narrative: CBC was reviewed and was within normal limits. Comprehensive metabolic profile was reviewed and was within normal limits. High-sensitivity troponin was reviewed and was less than 3. Lipase was reviewed and was normal at 20. Serum hCG was reviewed and was negative. Urinalysis was reviewed. There is no evidence of urinary tract infection or hematuria. Labs: Laboratory Results - last 24 hr 04/24/24 04/24/24 12:30 13:10 WBC 7.2 RBC 4.32 Hgb 13.2 Hct 40.8 MCV 94.4 MCH 30.6 MCHC 32.4 RDW Std Deviation 45.4 H RDW Coeff of Danis 13.2 Plt Count 280 MPV 10.0 Immature Gran % (Auto) 0.600 Neut % (Auto) 73.7 H Lymph % (Auto) 20.2 Stephenson % (Auto) 4.3 Eos % (Auto) 0.6 Baso % (Auto) 0.6 Absolute Neuts (auto) 5.3 Absolute Lymphs (auto) 1.46 Nucleated RBC % 0 Sodium 140 Potassium 4.0 Chloride 106 Carbon Dioxide 25.0 Anion Gap 9 BUN 16 Creatinine 0.91 Estim Creat Clear Calc 103.17 Est GFR (MDRD) Af Amer 96 Est GFR (MDRD) Non-Af 80 BUN/Creatinine Ratio 17.6 Glucose 123 H Calcium 9.6 Total Bilirubin 0.50 AST 23 ALT 29 Alkaline Phosphatase 75 Troponin I High Sens < 3 L Total Protein 8.4 H Albumin 4.3 Globulin 4.1 Albumin/Globulin Ratio 1.0 Lipase 20 Serum , Qual NEGATIVE Urine Color Yellow Urine Clarity Sl. Cloudy Urine pH 6.5 Ur Specific [place] 1.015 Urine Protein 30 H Urine Glucose (UA) Normal Urine Ketones 15 H Urine Occult Blood 250 H Urine Nitrite Negative Urine Bilirubin Negative Urine Urobilinogen Normal Ur Leukocyte Esterase Negative Urine RBC 0-5 SEEN Urine WBC 0-5 SEEN Ur Squamous Epith Cells 5-10 SEEN Urine Bacteria 2+ Urine Mucus 0 SEEN Radiography Chest X-Ray - ED: 2 View, Read by ED Physician, Read by Radiologist and No Acute Disease Diagnostic Testing: Clinical Impression(s) from Imaging Studies Chest X-Ray 04/24/24 13:15 IMPRESSION: No acute abnormality is present. Electronically Signed: Brendan Adamson MD at 13:34 EDT , PA and lateral chest x-ray was obtained. There are 2 views. On my independent interpretation, lung rivera are clear. There is normal cardiac silhouette. Bony thorax is normal. There is no acute process noted. Radiologist also interpreted the x-ray and agrees. EKG Initial EKG: Attestation: I personally reviewed and interpreted this EKG as follows: Interpretation: No Acute Injury Pattern and Sinus Tachycardia (111) Comments: EKG was obtained. On my independent interpretation, it showed a sinus tachycardia with a rate of 111. HI interval, QRS interval, and QTc intervals were all normal. Holman was normal. There are no acute ST or T wave changes. Prior EKG tracings: available for review Prior: Unchanged (08/09/2022) Treatment and Re-Evaluation :: Patient given IV fluids and Zofran. Patient was given a dose of p.o. Valium. Patient was still nauseated. Patient was given a dose of Phenergan. Patient was sleeping on reevaluation. Mother was advised of the findings. Mother was advised that this is most likely anxiety attack. Mother states patient has been having trouble sleeping at home. Patient was given a prescription for a short course of trazodone to take at bedtime. Mother was instructed to follow-up with the patient's primary care physician and counselor in 5 to 7 days. Mother was instructed to return if worse in any way. Mother understood and was agreeable with plan. All questions were answered. Discharge Plan Triage Chief Complaint: Shortness of Breath Other Complaint: Nausea/Vomiting ED Provider: Gregory Neil Dx/Rx/DC Orders Clinical Impression: Acute anxiety, HTN (hypertension), Insomnia Instructions: ED Anxiety Reaction Prescriptions: New trazodone 50 mg tablet 50 mg PO QHS PRN (Reason: insomnia) Qty: 10 0RF No Action ibuprofen 800 mg tablet 800 mg PO TID PRN (Reason: pain) Qty: 30 0RF norethindrone (contraceptive) [Stephanie] 0.35 mg tablet 0.35 mg PO QDAY Qty: 84 4RF cariprazine 3 mg capsule 3 mg PO DAILY Qty: 30 0RF Rx Instructions: Begin after dosing pack is completed cariprazine 1.5 mg (1)- 3 mg (6) capsule,dose pack See Rx Instructions PO .COMPLEX Qty: 7 0RF Rx Instructions: take 1 - 1.5 mg (white) capsule on Day 1, then 1 - 3 mg (blue-green) capsule daily for 6 days (days 2 - 7) PO omeprazole 40 mg capsule,delayed release(DR/EC) See Rx Instructions .ROUTE .COMPLEX Qty: 90 1RF Dose Instruction: 40 MG ORALLY DAILY Rx Instructions: 40 MG ORALLY DAILY sertraline 100 mg tablet 100 mg PO DAILY Qty: 90 1RF Primary Care Provider: Mina Vu Referrals: Mina Vu MD [Primary Care Provider] - 3-5 Days Print Language: [place] Leonean Disposition Disposition: Home, Self Care
--- NOTE | 2024-04-24 12:48 | EKG12_ITS ---
Test Reason : SOB Blood Pressure : / mmHG Vent. Rate : 111 BPM Atrial Rate : 111 BPM P-R Int : 150 ms QRS Dur : 074 ms QT Int : 332 ms P-R-T Axes : 027 -04 017 degrees QTc Int : 451 ms Sinus tachycardia Otherwise normal ECG Confirmed by BARBARA WRIGHT, CRYS ([id number]), video tape editor JONAS WORKMAN ([id number]) on 04/26/2024 1:21:11 PM Referred By: Confirmed By:CRYS JIMENEZ MD
[2024-04-24] MEDS: Ondansetron 4 MG/2 ML Vial IV (13:02)
[2024-04-24] MEDS: 0.9% Normal Saline (1000mL) 1,000 ML 1000 ML IV (13:02)
[2024-04-24] MEDS: diazePAM 5 MG Tablet 2.5 MG PO (13:03)
[2024-04-24 13:08] LABS: Absolute Lymphocyte Count 1.46 X10^3/uL (0.83-4.51); Absolute Neutrophil Count 5.3 X10^3/uL (2.0-7.7); Basophil# 0.04 X10^3/uL; Basophil% 0.6 % (0-1); Eosinophil# 0.04 X10^3/uL; Eosinophils% 0.6 % (0-5); Hematocrit 40.8 % (37-47); Hemoglobin 13.2 g/dL (12.0-15.0); Lymphocyte # 1.46 X10^3/ul (0.83-4.51); Lymphocyte % 20.2 % (19-41); Mean Corp Hgb Conc 32.4 g/dL (32-36); Mean Corpuscular Hgb 30.6 pg (27.0-32.0); Mean Corpuscular Volume 94.4 fL (81-99); Monocyte# 0.31 X10^3/uL; Monocyte% 4.3 % (0-10); NRBC Flagged by Analyzer 0 % (0-5); Neutrophil # 5.32 X10^3/uL (2.7-7.7); Neutrophil % 73.7 % (47-70); Platelet Count 280 K/mm3 (150-450); RBC Distribution Width CV 13.2 % (11.6-14.6); RBC Distribution Width SD 45.4 fl (35.1-43.9); Red Blood Count 4.32 M/mm3 (4.2-5.4); White Blood Count 7.2 K/mm3 (4.4-11.0)
[2024-04-24 13:14] LABS: Mucous, Urine 0 SEEN /hpf (<or=2+)
--- NOTE | 2024-04-24 13:15 | RAD_ITS ---
STUDY: X-RAY CHEST REASON FOR EXAM: Female, 24 years old. Chest pain TECHNIQUE: PA and lateral views of the chest. COMPARISON: Comparison is made with prior study February 23, 2016. FINDINGS: EKG electrodes are seen. The lungs are clear and expanded. Scattered calcified granulomas. There is no demonstrated pleural abnormality. Normal size heart. Normal mediastinum and abdiel. Normal visualized pulmonary arteries. Normal visualized aortic arch and descending thoracic aorta. Normal visualized thoracic spine. Normal visualized ribs, clavicles, and shoulders. There is no demonstrated abnormality of the visualized soft tissue structures of the upper abdomen. RAD/Chest PA and Lateral IMPRESSION: No acute abnormality is present. Electronically Signed: Brendan Adamson MD at 13:34 EDT ,
[2024-04-24 13:17] LABS: Color, Urine Yellow (Yellow); Glucose, Dipstick Normal (Normal); Ketone-Dipstick 15 mg/dl (Negative); Leukocyte Esterase-Dipstick Negative /ul (Negative); Nitrite-Dipstick Negative (Negative); Occult Blood-Urine 250 /ul (Negative); Protein-Dipstick 30 mg/dl (Negative); Specific Gravity, Urine 1.015 (1.002-1.030); Urine Bilirubin Dipstick Negative (Negative); Urine Clarity Sl. Cloudy (Clear); Urine Urobilinogen Normal (Normal); Urine pH 6.5 (5.0 - 8.0)
[2024-04-24 13:19] LABS: Internal QC Validated? YES +Cl - CLEAR BKGD; Pregnancy, Serum, hCG Quali. NEGATIVE Negative
[2024-04-24 13:24] LABS: Bacteria 2+ /hpf (None Seen); Red Blood Cells-Urine 0-5 SEEN /hpf (0-5); Squamous Epithelial Cells - UA 5-10 SEEN /hpf (5-10); White Blood Cells 0-5 SEEN /hpf (0-5)
[2024-04-24 13:31] LABS: AST(SGOT) 23 U/L (15-37); Alanine Aminotransfer ALT/SGPT 29 U/L (13-56); Albumin, Serum 4.3 g/dL (3.2-5.0); Alkaline Phosphatase 75 U/L (45-117); Anion Gap 9 (5-15); BUN 16 mg/dL (7-18); BUN/Creat Ratio 17.6 RATIO (10-20); Calcium,Total 9.6 mg/dL (8.5-10.1); Chloride 106 mmol/L (98-107); Creatinine, Serum 0.91 mg/dL (0.55-1.02); EST Glomerular Filtration Rate 80 mL/min (>60); Est Glom Filt Rate - Afr Amer 96 mL/min (>60); Estimated Creatinine Clearance 103.17 ml/min; Globulin 4.1 g/dL (2.2-4.2); Glucose 123 mg/dL (74-106); Lipase 20 U/L (13-75); Protein, Total 8.4 g/dL (6.4-8.2); Sodium Level 140 mmol/L (136-145); Troponin-I HS < 3 pg/mL (3.0-54.0)
[2024-04-24 14:04] VITALS: BP 132/94; PULSE 81; RESP 18; O2SAT 98
[2024-04-24] MEDS: proMETHazine 25 MG/ML Syringe 6.25 MG IM (14:50)
[2024-04-24 15:00] VITALS: BP 127/81; BP 127/86; BP 128/77; PULSE 71; PULSE 74; PULSE 77
[2024-04-24 16:00] VITALS: BP 113/66; PULSE 96; RESP 13; O2SAT 98
[2024-04-24 16:21] VITALS: BP 138/74; PULSE 78; RESP 16; TEMP 36.8; O2SAT 99
== END 2024-04-24 16:25 | disposition home or self-care (01) ==
PROVIDERS: Emergency Provider Emergency Medicine; PCP Internal Medicine; Visit Provider Emergency Medicine
DX: F41.1 Generalized anxiety disorder (principal); I10 Essential (primary) hypertension; G47.00 Insomnia, unspecified; F17.290 Nicotine dependence, other tobacco product, uncomplicated; Z79.899 Other long term (current) drug therapy
CPT/HCPCS: 71046; 80053; 81001; 83690; 84484; 84703; 85025; 93005; 96361; 96372; 96374; 99285; J7030; A4216; J2405

== ENCOUNTER 2024-04-30 12:53 | Emergency (ER) | payer MEDICAID, SELFPAY ==
[2024-04-30 12:53] VITALS: BP 128/116; PULSE 89; RESP 16; TEMP 36.8; O2SAT 97; BMI 35.3
--- NOTE | 2024-04-30 13:27 | EX.ED.DYSGE1 ---
HPI <UZMA Greenberg - Last Filed: 04/30/24 20:54> History of Present Illness Chief Complaint: Suicidal Narrative Narrative: Patient is a 24-year-old female with history of chronic back pain, anxiety, PTSD, bipolar, GERD who presents to the emergency department for suicidal ideations, audio hallucinations, uncontrolled anxiety/manic episodes. Patient has been in contact with crisis, patient today drove there, and secondary to her manic speech, her explanation of her suicidal ideations as well as her auditory hallucinations, they referred her to the emergency department. She is pink slipped via the crisis center. The plan per the patient is to get admitted to a psychiatric facility. She denies any specific chest pain, nausea or vomiting. Patient has been drinking alcohol 5-7 beers daily however has not had any alcohol in 1 week. Patient has stressors such as her mother, she is in a relationship which is important to her. PFS <UZMA Greenberg - Last Filed: 04/30/24 20:54> [facility] Medical History History of gestational hypertension Disability examination Change in bowel habit GERD (gastroesophageal reflux disease) Gastroenteritis Irritable bowel syndrome with diarrhea Anxiety and depression Seizures Acute exacerbation of chronic low back pain Insomnia Epilepsy HTN (hypertension) Headache Back problem Anxiety Abdominal pain Home Medications ?Medication ?Instructions ?Recorded ?Last Taken ?Type norethindrone (contraceptive) 0.35 0.35 mg PO QDAY #84 tabs 02/21/24 Unknown Rx mg tablet (Setphanie) omeprazole 40 mg capsule,delayed See Rx Instructions .Route 02/24/24 Unknown Rx release .COMPLEX #90 caps trazodone 50 mg tablet 50 mg PO QHS PRN insomnia #10 tabs 04/24/24 Unknown Rx labetalol 100 mg tablet 100 mg PO DAILY 04/30/24 Unknown History Allergy/AdvReac Type Severity Reaction Status Date / Time Iodinated Contrast Media Allergy Intermediate HIVES, Verified 04/30/24 12:53 SHORT OF BREATH tramadol Allergy Intermediate itching Verified 04/30/24 12:53 codeine phosphate (From Allergy Hives Verified 04/30/24 12:53 Tylenol-Codeine #3) morphine Allergy Itching Verified 04/30/24 12:53 oxycodone HCl (From Percocet) Allergy Hives Verified 04/30/24 12:53 red dye Allergy Hives Verified 04/30/24 12:53 hydromorphone (From Dilaudid) AdvReac Itching Verified 04/30/24 12:53 Family History Mother Endometriosis Depression with anxiety Grandfather Diabetes Aunt Diabetes Grandfather Cancer unknown CA, passed of Unknown Hypertension High cholesterol Father Depression with anxiety Bipolar 1 disorder Surgical History History of laminectomy H/O laparoscopy Social History Smoking Status: Current some day smoker tobacco type: cigarettes and e-cigarettes Electronic Cigarette Use: with nicotine alcohol intake: never substance use type: does not use caffeine: Yes what type of physical activity do you participate in: none seatbelt use: always do you feel safe at home: Yes additional social history: [facility] ROS <UZMA Greenberg - Last Filed: 04/30/24 20:54> ROS ED ROS Narrative Constitutional: Negative for fever, chills, weight loss, weakness Eyes: Negative for vision loss, vision change, double vision ENT: Negative for any sore throat, ear pain, congestion Cardiovascular: Negative for any chest pain, tightness, palpitations Respiratory: Negative for any cough, sputum production, hemoptysis, dyspnea, dyspnea on exertion, orthopnea Gastrointestinal: Negative for any abdominal pain, nausea, vomiting, diarrhea, constipation, blood in stool, blood in vomit : Negative for any urinary frequency, dysuria, retention, blood in urine Muscle skeletal: Negative for any neck pain, back pain Neurological: Negative for any headache, syncope, dizziness Skin: Negative for any rashes, itching, abrasions, lacerations Psychiatric: Negative for any homicidal ideation. Positive for anxiety, manic episodes, suicidal ideation, auditory elucidation's Hematologic: Negative for any excessive bruising, easy bleeding EXAM <UZMA Greenberg - Last Filed: 04/30/24 20:54> Physical Exam Narrative Exam Narrative: Vital signs reviewed. Patient on my initial evaluation is tearful, patient is constantly crying, she continues to say that she needs help. HEET: Head normocephalic atraumatic, TMs clear bilaterally. Posterior pharynx is clear, moist mucous membranes. Nares clear bilaterally. Neck: Supple with no lymphadenopathy or tenderness. No signs of meningismus. Cardiac: Regular rate and rhythm no murmurs gallops or rubs, equal peripheral pulses bilaterally. Respiratory: Lungs clear to auscultation bilaterally. No chest tenderness. Abdomen: Soft, nontender, nondistended. No abdominal bruit or pulsatile masses. No hepatosplenomegaly Extremities: No peripheral edema, no signs of gross trauma or deformity. Active full range of motion of all extremities. Neuro: Cranial nerves II through XII intact, no focal neurological deficits. Skin: Clean dry and intact with no rash, purpura, petechiae, vesicles or pustules. Backs/flank: No CVA tenderness, no midline spinal tenderness, no deformity. Psych: Patient is anxious, tearful, when asked if she feels suicidal right now she says not at the moment. However patient states she is hearing things that is troubling to her. Const Vital Signs: 04/30/24 12:53 04/30/24 13:53 04/30/24 14:53 Temperature 98.2 F Temperature Source Oral Pulse Rate 89 82 79 Respiratory Rate 16 16 18 Blood Pressure 128/116 H 126/99 H 129/98 H Blood Pressure Mean 120 108 108 Pulse Ox 97 98 96 Oxygen Delivery Method Room Air Room Air <Dr. Kevin Mullins DO - Last Filed: 04/30/24 20:03> Physical Exam Const Vital Signs: 04/30/24 12:53 04/30/24 13:53 04/30/24 14:53 Temperature 98.2 F Temperature Source Oral Pulse Rate 89 82 79 Respiratory Rate 16 16 18 Blood Pressure 128/116 H 126/99 H 129/98 H Blood Pressure Mean 120 108 108 Pulse Ox 97 98 96 Oxygen Delivery Method Room Air Room Air [facility] <UZMA Greenberg - Last Filed: 04/30/24 20:54> [facility] Lab Data Labs: Laboratory Results - last 24 hr 04/30/24 13:31 WBC 6.9 RBC 4.50 Hgb 13.6 Hct 42.7 MCV 94.9 MCH 30.2 MCHC 31.9 L RDW Std Deviation 46.2 H RDW Coeff of Danis 13.2 Plt Count 301 MPV 9.9 Immature Gran % (Auto) 0.600 Neut % (Auto) 69.3 Lymph % (Auto) 21.3 Dodge % (Auto) 6.6 Eos % (Auto) 1.9 Baso % (Auto) 0.3 Absolute Neuts (auto) 4.8 Absolute Lymphs (auto) 1.46 Nucleated RBC % 0 Sodium 140 Potassium 3.6 Chloride 107 Carbon Dioxide 26.0 Anion Gap 7 BUN 19 H Creatinine 0.89 Estim Creat Clear Calc 102.22 Est GFR (MDRD) Af Amer 99 Est GFR (MDRD) Non-Af 82 BUN/Creatinine Ratio 21.4 H Glucose 104 Calcium 9.8 Serum , Qual NEGATIVE Urine Opiates Screen NEGATIVE Urine Methadone Screen NEGATIVE Ur Barbiturates Screen NEGATIVE Ur Phencyclidine Scrn NEGATIVE Ur Amphetamines Screen NEGATIVE MDMA (Ecstasy) Screen NEGATIVE U Benzodiazepines Scrn POSITIVE H Urine Cocaine Screen NEGATIVE U Cannabinoids Screen NEGATIVE Ur Drug Screen Comment Ethyl Alcohol < 3.0 Treatment and Re-Evaluation :: Differential diagnosis includes however is not limited to: Suicidal ideation, homicidal ideation, manic depression, bipolar, medication noncompliance, alcohol abuse, auditory hallucinations, failure to thrive Patient appears anxious, vital signs are stable, patient is tearful. Presenting to the emergency department for complaints of auditory hallucinations, suicidal ideations, anxiety, manic episodes. Speaking with the patient, I did read the patient's pink slip from the crisis, I do believe the patient would be best benefited at a psychiatric facility. Patient is agreeable with this plan. Patient will be having a sitter, 1 mg of oral Ativan will be given. Patient will receive the screening laboratory values. When these do return, I will speak with crisis, the plan will be to transfer the patient for psychiatric help. Patient at 3:52 PM is stable, in no obvious distress. Patient's laboratory values showed normal CBC, patient's chemistries were unremarkable, patient is not intoxicated, patient had positive for benzodiazepines. Patient has COVID-negative. At this time, I did speak with the crisis, they are currently reviewing her medical records, they will now try to find placement for this patient. Currently waiting for acceptance. Patient remained stable at 5:37 PM, patient is accepted to [facility]. Currently waiting for transport, according to the medical staff, the medical transport could be anywhere between 2 to 4 hours. Patient remained stable. 8:52 PM, patient remained stable. I spoke with the patient, she is calm, collected. Patient did request another pill for anxiety for the transport. Patient was given 1 more milligram of Ativan orally. Patient will have her transport here within the next 10 to 15 minutes. Supervisory Physician Note Patient was seen and examined with the Advanced Practice Provider. Nursing notes and vital signs have been reviewed. Pertinent old records have been reviewed. I agree with the essential elements of the JEREL's history, physical exam, assessment, and plan. The differential diagnosis and management options were discussed with the JEREL. I participated in determining and agree with the management, procedures, final impression and disposition as documented. See changes noted by me. Please see addendum or separate note for any additional details. 24-year-old female with history of bipolar disorder, anxiety, PTSD presents for evaluation of suicidal ideation, auditory hallucinations, and manic episodes. Patient was in contact with crisis today and they referred her to the emergency department. Patient pink slipped. Patient endorses suicidal ideation yesterday. Did not have a plan. States she has had poor appetite and insomnia. Very tearful and anxious in the room. States she needs help. Having nightmares. States she is not on any medication for her bipolar disorder. Denies any fever, chills, shortness of breath, chest pain abdominal pain, nausea, vomiting. Denies . Denies homicidal ideation. Gen: A&O x3, very tearful and anxious Head: Normocephalic, atraumatic Eyes: No sclera icterus, conjunctiva clear, PERRL ENT: Moist mucous membranes Neck: Trachea midline CV: RRR, no murmurs Resp: Lungs CTA BL, no w/r/c GI: Abd soft, non-distended, non-tender, no r/r/g Musc: Full ROM, no deformity Skin: Warm, dry Neuro: Alert, oriented, grossly intact, sensation intact Differential diagnosis includes but is not limited to depression, anxiety, suicidal ideation, bipolar disorder Patient would benefit from inpatient psychiatric facility placement. Ativan given for anxiety. Laboratory screening ordered. CBC and BMP unremarkable. Urine negative. Urine drug screen positive only for benzos. Patient did receive Ativan. Ethanol level unremarkable. Patient medically cleared for inpatient psychiatric facility. Patient was evaluated by crisis. Accepted to inpatient psychiatric facility. Impression: 1. Depression 2. Anxiety 3. Bipolar disorder 4. Suicidal ideation <Dr. Kevin Mullins, DO - Last Filed: 04/30/24 20:03> [facility] Lab Data Labs: Laboratory Results - last 24 hr 04/30/24 13:31 WBC 6.9 RBC 4.50 Hgb 13.6 Hct 42.7 MCV 94.9 MCH 30.2 MCHC 31.9 L RDW Std Deviation 46.2 H RDW Coeff of Danis 13.2 Plt Count 301 MPV 9.9 Immature Gran % (Auto) 0.600 Neut % (Auto) 69.3 Lymph % (Auto) 21.3 Dodge % (Auto) 6.6 Eos % (Auto) 1.9 Baso % (Auto) 0.3 Absolute Neuts (auto) 4.8 Absolute Lymphs (auto) 1.46 Nucleated RBC % 0 Sodium 140 Potassium 3.6 Chloride 107 Carbon Dioxide 26.0 Anion Gap 7 BUN 19 H Creatinine 0.89 Estim Creat Clear Calc 102.22 Est GFR (MDRD) Af Amer 99 Est GFR (MDRD) Non-Af 82 BUN/Creatinine Ratio 21.4 H Glucose 104 Calcium 9.8 Serum , Qual NEGATIVE Urine Opiates Screen NEGATIVE Urine Methadone Screen NEGATIVE Ur Barbiturates Screen NEGATIVE Ur Phencyclidine Scrn NEGATIVE Ur Amphetamines Screen NEGATIVE MDMA (Ecstasy) Screen NEGATIVE U Benzodiazepines Scrn POSITIVE H Urine Cocaine Screen NEGATIVE U Cannabinoids Screen NEGATIVE Ur Drug Screen Comment Ethyl Alcohol < 3.0 Treatment and Re-Evaluation :: Differential diagnosis includes however is not limited to: Suicidal ideation, homicidal ideation, manic depression, bipolar, medication noncompliance, alcohol abuse, auditory hallucinations, failure to thrive Patient appears anxious, vital signs are stable, patient is tearful. Presenting to the emergency department for complaints of auditory hallucinations, suicidal ideations, anxiety, manic episodes. Speaking with the patient, I did read the patient's pink slip from the crisis, I do believe the patient would be best benefited at a psychiatric facility. Patient is agreeable with this plan. Patient will be having a sitter, 1 mg of oral Ativan will be given. Patient will receive the screening laboratory values. When these do return, I will speak with crisis, the plan will be to transfer the patient for psychiatric help. Patient at 3:52 PM is stable, in no obvious distress. Patient's laboratory values showed normal CBC, patient's chemistries were unremarkable, patient is not intoxicated, patient had positive for benzodiazepines. Patient has COVID-negative. At this time, I did speak with the crisis, they are currently reviewing her medical records, they will now try to find placement for this patient. Currently waiting for acceptance. Patient remained stable at 5:37 PM, patient is accepted to [facility]. Currently waiting for transport, according to the medical staff, the medical transport could be anywhere between 2 to 4 hours. Patient remained stable. Supervisory Physician Note Patient was seen and examined with the Advanced Practice Provider. Nursing notes and vital signs have been reviewed. Pertinent old records have been reviewed. I agree with the essential elements of the JEREL's history, physical exam, assessment, and plan. The differential diagnosis and management options were discussed with the JEREL. I participated in determining and agree with the management, procedures, final impression and disposition as documented. See changes noted by me. Please see addendum or separate note for any additional details. 24-year-old female with history of bipolar disorder, anxiety, PTSD presents for evaluation of suicidal ideation, auditory hallucinations, and manic episodes. Patient was in contact with crisis today and they referred her to the emergency department. Patient pink slipped. Patient endorses suicidal ideation yesterday. Did not have a plan. States she has had poor appetite and insomnia. Very tearful and anxious in the room. States she needs help. Having nightmares. States she is not on any medication for her bipolar disorder. Denies any fever, chills, shortness of breath, chest pain abdominal pain, nausea, vomiting. Denies . Denies homicidal ideation. Gen: A&O x3, very tearful and anxious Head: Normocephalic, atraumatic Eyes: No sclera icterus, conjunctiva clear, PERRL ENT: Moist mucous membranes Neck: Trachea midline CV: RRR, no murmurs Resp: Lungs CTA BL, no w/r/c GI: Abd soft, non-distended, non-tender, no r/r/g Musc: Full ROM, no deformity Skin: Warm, dry Neuro: Alert, oriented, grossly intact, sensation intact Differential diagnosis includes but is not limited to depression, anxiety, suicidal ideation, bipolar disorder Patient would benefit from inpatient psychiatric facility placement. Ativan given for anxiety. Laboratory screening ordered. CBC and BMP unremarkable. Urine negative. Urine drug screen positive only for benzos. Patient did receive Ativan. Ethanol level unremarkable. Patient medically cleared for inpatient psychiatric facility. Patient was evaluated by crisis. Accepted to inpatient psychiatric facility. Impression: 1. Depression 2. Anxiety 3. Bipolar disorder 4. Suicidal ideation Discharge Plan Triage Chief Complaint: Suicidal ED Midlevel Provider: Jamaal Mann ED Provider: Kevin Mullins Dx/Rx/DC Orders Clinical Impression: Anxiety, Bipolar 1 disorder with moderate ashley, H/O medication noncompliance, Suicidal ideation, Auditory hallucination Prescriptions: No Action norethindrone (contraceptive) [Stephanie] 0.35 mg tablet 0.35 mg PO QDAY Qty: 84 4RF trazodone 50 mg tablet 50 mg PO QHS PRN (Reason: insomnia) Qty: 10 0RF labetalol 100 mg tablet 100 mg PO DAILY omeprazole 40 mg capsule,delayed release(DR/EC) See Rx Instructions .ROUTE .COMPLEX Qty: 90 1RF Dose Instruction: 40 MG ORALLY DAILY Rx Instructions: 40 MG ORALLY DAILY Primary Care Provider: Mina Vu Referrals: Mina Vu MD [Primary Care Provider] - Print Language: Malay Disposition Disposition: Acute Care Hospital Discharge Location: [facility]
[2024-04-30 13:45] LABS: Absolute Lymphocyte Count 1.46 X10^3/uL (0.83-4.51); Absolute Neutrophil Count 4.8 X10^3/uL (2.0-7.7); Basophil# 0.02 X10^3/uL; Basophil% 0.3 % (0-1); Eosinophil# 0.13 X10^3/uL; Eosinophils% 1.9 % (0-5); Hematocrit 42.7 % (37-47); Hemoglobin 13.6 g/dL (12.0-15.0); Lymphocyte # 1.46 X10^3/ul (0.83-4.51); Lymphocyte % 21.3 % (19-41); Mean Corp Hgb Conc 31.9 g/dL (32-36); Mean Corpuscular Hgb 30.2 pg (27.0-32.0); Mean Corpuscular Volume 94.9 fL (81-99); Mean Platelet Vol. 9.9 fl (6.2-12.0); Monocyte# 0.45 X10^3/uL; Monocyte% 6.6 % (0-10); NRBC Flagged by Analyzer 0 % (0-5); Neutrophil # 4.76 X10^3/uL (2.7-7.7); Neutrophil % 69.3 % (47-70); Platelet Count 301 K/mm3 (150-450); RBC Distribution Width CV 13.2 % (11.6-14.6); RBC Distribution Width SD 46.2 fl (35.1-43.9); White Blood Count 6.9 K/mm3 (4.4-11.0)
[2024-04-30 13:53] VITALS: BP 126/99; PULSE 82; RESP 16; O2SAT 98
[2024-04-30 13:56] LABS: Internal QC Validated? YES +Cl - CLEAR BKGD; Pregnancy, Serum, hCG Quali. NEGATIVE Negative
[2024-04-30 13:57] LABS: Amphetamine Urine VISTA NEGATIVE (<1000 ng/mL); Barbiturate Urine VISTA NEGATIVE (< 200 ng/mL); Benzodiazepine Urine VISTA POSITIVE (< 200 ng/mL); Cocaine Urine VISTA NEGATIVE (< 300 ng/mL); Ecstacy Urine VISTA NEGATIVE (< 500 ng/mL); Methadone Urine VISTA NEGATIVE (< 300 ng/mL); PCP Urine VISTA NEGATIVE (< 25 ng/mL); THC Urine VISTA NEGATIVE (< 50 ng/mL); Vista UDS pH Range 5
[2024-04-30 14:00] LABS: Alcohol, Blood (Medical)-Serum < 3.0 mg/dL
[2024-04-30] MEDS: LORazepam 1 MG Tablet PO ×2 (14:03→20:56)
[2024-04-30 14:04] LABS: Anion Gap 7 (5-15); BUN 19 mg/dL (7-18); BUN/Creat Ratio 21.4 RATIO (10-20); Calcium,Total 9.8 mg/dL (8.5-10.1); Chloride 107 mmol/L (98-107); Creatinine, Serum 0.89 mg/dL (0.55-1.02); EST Glomerular Filtration Rate 82 mL/min (>60); Est Glom Filt Rate - Afr Amer 99 mL/min (>60); Estimated Creatinine Clearance 102.22 ml/min; Glucose 104 mg/dL (74-106); Potassium 3.6 mmol/L (3.5-5.1); Sodium Level 140 mmol/L (136-145)
[2024-04-30 14:53] VITALS: BP 129/98; PULSE 79; RESP 18; O2SAT 96
[2024-04-30 23:15] VITALS: BP 133/86; PULSE 82; RESP 18; TEMP 36.6; O2SAT 98
== END 2024-04-30 23:31 ==
PROVIDERS: Nurse Practitioner; Emergency Provider Surgery; PCP Internal Medicine; Visit Provider Surgery
DX: R45.851 Suicidal ideations (principal); F31.12 Bipolar disorder, current episode manic without psychotic features, moderate; R44.0 Auditory hallucinations; F41.9 Anxiety disorder, unspecified; I10 Essential (primary) hypertension; F17.210 Nicotine dependence, cigarettes, uncomplicated; F17.290 Nicotine dependence, other tobacco product, uncomplicated; Z91.148 Patient's other noncompliance with medication regimen for other reason; Z79.899 Other long term (current) drug therapy; Z81.8 Family history of other mental and behavioral disorders
CPT/HCPCS: 80048; 80307; 82077; 84703; 85025; 87635; 99285

== ENCOUNTER 2024-07-28 14:41 | Emergency (ER) | payer MEDICAID, SELFPAY ==
[2024-07-28 14:42] VITALS: BP 115/81; PULSE 80; RESP 16; TEMP 37; O2SAT 100; BMI 36.2
--- NOTE | 2024-07-28 15:19 | CT_ITS ---
EXAM: CT ABDOMEN AND PELVIS WITHOUT INTRAVENOUS CONTRAST CLINICAL INDICATION: Right upper quadrant and right lower quadrant pain TECHNIQUE: Helically acquired images were obtained of the abdomen and pelvis without intravenous contrast. This CT exam was performed using one or more of the following dose reduction techniques: automated exposure control, adjustment of the mA and/or kV according to patient size, and/or use of iterative reconstruction technique. COMPARISON: 09/28/2023 FINDINGS: LOWER THORAX: Unremarkable. Lung bases are clear. No cardiomegaly. No significant pericardial effusion. ABDOMEN: LIVER: Unremarkable. Homogeneous. GALLBLADDER AND BILE DUCTS: Unremarkable. No calcified gallstones. No gallbladder distention or wall edema. No intra- or extrahepatic biliary ductal dilation. PANCREAS: Unremarkable. No focal cystic mass. SPLEEN: Unremarkable. Normal size without focal cystic or solid mass. ADRENALS: Unremarkable. No nodules. KIDNEYS AND URETERS: Unremarkable. Normal renal size and position. No hydronephrosis. STOMACH AND BOWEL: Unremarkable. No stomach or bowel distention. No focal inflammatory change. PELVIS: APPENDIX: No evidence of acute appendicitis. BLADDER: Unremarkable. REPRODUCTIVE: There is a 2.2 x 2.2 cm fluid density mass in the right hemipelvis which may represent a right ovarian cyst. ABDOMEN and PELVIS: INTRAPERITONEAL SPACE: Unremarkable. No ascites or other fluid collection. No free air. BONES/JOINTS: Unremarkable. No suspicious lytic or blastic abnormality. SOFT TISSUES: Unremarkable. No discrete abdominal or pelvic wall hernia. VASCULATURE: Unremarkable. Abdominal aorta is non-dilated. LYMPH NODES: Unremarkable. No enlarged lymph nodes. CT/Abdomen/Pelvis without Cont IMPRESSION: Fluid density mass in the right hemipelvis which may represent an ovarian cyst. No other acute abnormalities are identified. Electronically Signed: Regis Linda MD at 17:22 [facility] ,
--- NOTE | 2024-07-28 15:20 | EDS_ITS ---
HPI HPI - GI History of Present Illness Chief Complaint: Abd Pain Narrative Narrative: 24-year-old female past medical history of anxiety presents with 2 to 3 days of abdominal pain. States its described as a burning sensation. Is mainly in the right upper quadrant of her abdomen. Food does not make it better or worse but she has had decreased appetite. She states yesterday she experienced 3 episodes of nausea and vomiting without hematemesis. No other exacerbating or alleviating factors. She states she went to her [facility] care and was told that she had protein in her urine. She denies any problems with bowel movements. No diarrhea. No dysuria or hematuria. Her urgent care papers states that she was having more right lower quadrant abdominal pain. [facility] Medical History History of gestational hypertension Disability examination Change in bowel habit GERD (gastroesophageal reflux disease) Gastroenteritis Irritable bowel syndrome with diarrhea Anxiety and depression Seizures Acute exacerbation of chronic low back pain Insomnia Epilepsy HTN (hypertension) Headache Back problem Anxiety Abdominal pain Home Medications ?Medication ?Instructions ?Recorded ?Last Taken ?Type norethindrone (contraceptive) 0.35 0.35 mg PO QDAY #84 tabs 02/21/24 Unknown Rx mg tablet (Stephanie) omeprazole 40 mg capsule,delayed See Rx Instructions .Route 02/24/24 Unknown Rx release .COMPLEX #90 caps trazodone 50 mg tablet 50 mg PO QHS PRN insomnia #10 tabs 04/24/24 Unknown Rx labetalol 100 mg tablet 100 mg PO DAILY 04/30/24 Unknown History Allergy/AdvReac Type Severity Reaction Status Date / Time Iodinated Contrast Media Allergy Intermediate HIVES, Verified 07/28/24 14:43 SHORT OF BREATH tramadol Allergy Intermediate itching Verified 07/28/24 14:43 codeine phosphate (From Allergy Hives Verified 07/28/24 14:43 Tylenol-Codeine #3) morphine Allergy Itching Verified 07/28/24 14:43 oxycodone HCl (From Percocet) Allergy Hives Verified 07/28/24 14:43 red dye Allergy Hives Verified 07/28/24 14:43 hydromorphone (From Dilaudid) AdvReac Itching Verified 07/28/24 14:43 Family History Mother Endometriosis Depression with anxiety Grandfather Diabetes Aunt Diabetes Grandfather Cancer unknown [place], passed of Unknown Hypertension High cholesterol Father Depression with anxiety Bipolar 1 disorder Surgical History History of laminectomy H/O laparoscopy Social History Smoking Status: Current some day smoker tobacco type: cigarettes and e- cigarettes Electronic Cigarette Use: with nicotine alcohol intake: never substance use type: does not use caffeine: Yes what type of physical activity do you participate in: none seatbelt use: always do you feel safe at home: Yes additional social history: [facility]-House[employer] ROS ROS ED ROS Narrative Constitutional: No fever, no chills. HEENT: No sore throat. No neck pain. No loss of vision. No rhinorrhea. Cardiovascular: No chest pain. No palpitations. No pedal edema. Respiratory: No cough, no shortness of breath. Abdominal: Positive abdominal pain. Positive nausea and vomiting, 3 episodes in the last 24 hours. No hematemesis. No diarrhea. Genitourinary: No dysuria. No hematuria. Musculoskeletal: No myalgias. No arthralgias. Neurologic: No headaches. No dizziness. No lightheadedness. Skin: No rash. No change in color. EXAM Physical Exam Narrative Exam Narrative: Afebrile. Vital signs noted. Regular rate and rhythm. Lungs clear to auscultation bilaterally. Abdomen is soft with minimal tenderness to palpation in the right upper quadrant. Negative Vargas sign. No guarding or rebound. No pain over McBurney's point. Positive bowel sounds. Neurological examination is nonfocal and nonlateralizing. Const Vital Signs: 07/28/24 14:42 07/28/24 16:41 Temperature 98.6 F Temperature Source Oral Pulse Rate 80 78 Respiratory Rate 16 16 Blood Pressure 115/81 H 93/62 Blood Pressure Mean 92 72 Pulse Ox 100 99 Oxygen Delivery Method Room Air MDM MDM MDM Narrative Medical decision making narrative: Differential diagnosis includes but not limited to ureterolithiasis versus acute appendicitis versus biliary colic versus cholecystitis versus pancreatitis. Comprehensive workup was pursued. I reviewed her laboratory work and she has normal white count of 6.3 with hemoglobin 13.7, hematocrit 41.4, platelet count normal at 274. BUN slightly elevated 19 which I think is nonspecific and creatinine 0.70. Glucose 92, LFTs are grossly unremarkable. Lipase normal at 24 so I doubt pancreatitis. Serum test is negative. I reviewed the radiology report of the CT of the abdomen and pelvis and there is no acute process, there is a fluid density mass in the right hemipelvis which may be an ovarian cyst. I do not feel she needs a repeat UA as she had this done at urgent care. At this point in time, repeat examination shows her resting comfortably on the cot. I feel she can be discharged to take avyx-cud-eapncly medications and follow-up with her primary care provider and/or ALIGNING INSPECTOR. Return instructions to the emergency department were reviewed. Disposition is discharged home in stable condition. History & Record Review Discussion w/independent historian: Patient Lab Data Attestation: I reviewed the patient's lab results. Labs: Laboratory Results - last 24 hr 07/28/24 15:30 WBC 6.3 RBC 4.60 Hgb 13.7 Hct 41.4 MCV 90.0 MCH 29.8 MCHC 33.1 RDW Std Deviation 42.9 RDW Coeff of Danis 13.1 Plt Count 274 MPV 10.1 Immature Gran % (Auto) 0.500 Neut % (Auto) 58.9 Lymph % (Auto) 33.4 [place] % (Auto) 6.1 Eos % (Auto) 0.8 Baso % (Auto) 0.3 Absolute Neuts (auto) 3.7 Absolute Lymphs (auto) 2.09 Nucleated RBC % 0 Sodium 138 Potassium 4.0 Chloride 105 Carbon Dioxide 27.0 Anion Gap 5 BUN 19 H Creatinine 0.70 Estim Creat Clear Calc 131.78 Est GFR (MDRD) Af Amer 129 Est GFR (MDRD) Non-Af 106 BUN/Creatinine Ratio 27.0 H Glucose 92 Calcium 9.4 Total Bilirubin 0.50 AST 18 ALT 26 Alkaline Phosphatase 64 Total Protein 8.1 Albumin 4.0 Globulin 4.1 Albumin/Globulin Ratio 1.0 Lipase 24 Serum , Qual NEGATIVE Radiography Diagnostic Testing: Clinical Impression(s) from Imaging Studies Abdomen/Pelvis CT 07/28/24 15:19 IMPRESSION: Fluid density mass in the right hemipelvis which may represent an ovarian cyst. No other acute abnormalities are identified. Electronically Signed: Regis Linda MD at 17:22 EST , Discharge Plan Triage Chief Complaint: Abd Pain ED Provider: Aki Kenyon Dx/Rx/DC Orders Clinical Impression: Abdominal pain, Ovarian cyst Instructions: ED Abdominal Pain Unkn Cause Fem, ED Ovarian Cyst Prescriptions: No Action norethindrone (contraceptive) [Stephanie] 0.35 mg tablet 0.35 mg PO QDAY Qty: 84 4RF trazodone 50 mg tablet 50 mg PO QHS PRN (Reason: insomnia) Qty: 10 0RF labetalol 100 mg tablet 100 mg PO DAILY omeprazole 40 mg capsule,delayed release(DR/EC) See Rx Instructions .ROUTE .COMPLEX Qty: 90 1RF Dose Instruction: 40 MG ORALLY DAILY Rx Instructions: 40 MG ORALLY DAILY Primary Care Provider: Care Physician,No Primary Referrals: Mina Vu MD [Med Staff - Active Staff] - 3-5 Days if not improving Activity Restrictions/Additional Instructions: Return to the emergency department with fever, increased pain, new or worsening symptoms. Print Language: Wolof Disposition Disposition: Home, Self Care
[2024-07-28 15:49] LABS: Absolute Lymphocyte Count 2.09 X10^3/uL (0.83-4.51); Absolute Neutrophil Count 3.7 X10^3/uL (2.0-7.7); Basophil# 0.02 X10^3/uL; Basophil% 0.3 % (0-1); Eosinophil# 0.05 X10^3/uL; Eosinophils% 0.8 % (0-5); Hematocrit 41.4 % (37-47); Hemoglobin 13.7 g/dL (12.0-15.0); Lymphocyte # 2.09 X10^3/ul (0.83-4.51); Lymphocyte % 33.4 % (19-41); Mean Corp Hgb Conc 33.1 g/dL (32-36); Mean Corpuscular Hgb 29.8 pg (27.0-32.0); Mean Platelet Vol. 10.1 fl (6.2-12.0); Monocyte# 0.38 X10^3/uL; Monocyte% 6.1 % (0-10); NRBC Flagged by Analyzer 0 % (0-5); Neutrophil # 3.68 X10^3/uL (2.7-7.7); Neutrophil % 58.9 % (47-70); Platelet Count 274 K/mm3 (150-450); RBC Distribution Width CV 13.1 % (11.6-14.6); RBC Distribution Width SD 42.9 fl (35.1-43.9); White Blood Count 6.3 K/mm3 (4.4-11.0)
[2024-07-28 15:57] LABS: Internal QC Validated? YES +Cl - CLEAR BKGD; Pregnancy, Serum, hCG Quali. NEGATIVE Negative
[2024-07-28 16:04] LABS: AST(SGOT) 18 U/L (15-37); Alanine Aminotransfer ALT/SGPT 26 U/L (13-56); Alkaline Phosphatase 64 U/L (45-117); Anion Gap 5 (5-15); BUN 19 mg/dL (7-18); Calcium,Total 9.4 mg/dL (8.5-10.1); Chloride 105 mmol/L (98-107); EST Glomerular Filtration Rate 106 mL/min (>60); Est Glom Filt Rate - Afr Amer 129 mL/min (>60); Estimated Creatinine Clearance 131.78 ml/min; Globulin 4.1 g/dL (2.2-4.2); Glucose 92 mg/dL (74-106); Lipase 24 U/L (13-75); Protein, Total 8.1 g/dL (6.4-8.2); Sodium Level 138 mmol/L (136-145)
[2024-07-28 16:41] VITALS: BP 93/62; PULSE 78; RESP 16; O2SAT 99
[2024-07-28 17:48] LABS: Mucous, Urine 0 SEEN /hpf (<or=2+)
[2024-07-28 17:49] LABS: Color, Urine Yellow (Yellow); Glucose, Dipstick Normal (Normal); Ketone-Dipstick 5 mg/dl (Negative); Leukocyte Esterase-Dipstick 25 /ul (Negative); Nitrite-Dipstick Negative (Negative); Occult Blood-Urine Negative /ul (Negative); Protein-Dipstick 15 mg/dl (Negative); Urine Bilirubin Dipstick Negative (Negative); Urine Clarity Clear (Clear); Urine Urobilinogen Normal (Normal)
[2024-07-28 18:02] LABS: Bacteria RARE /hpf (None Seen); Red Blood Cells-Urine 0-5 SEEN /hpf (0-5); Renal Epithelial Cells 0-5 SEEN /hpf (0-5); Squamous Epithelial Cells - UA 5-10 SEEN /hpf (5-10); White Blood Cells 0-5 SEEN /hpf (0-5)
[2024-07-28 18:28] VITALS: BP 106/63; PULSE 57; RESP 15; TEMP 36.3; O2SAT 100
== END 2024-07-28 18:30 | disposition home or self-care (01) ==
PROVIDERS: Emergency Provider Emergency Medicine; Visit Provider Emergency Medicine
DX: R10.11 Right upper quadrant pain (principal); N83.201 Unspecified ovarian cyst, right side; I10 Essential (primary) hypertension; F17.210 Nicotine dependence, cigarettes, uncomplicated; F17.290 Nicotine dependence, other tobacco product, uncomplicated; Z79.899 Other long term (current) drug therapy
CPT/HCPCS: 74176; 80053; 81001; 83690; 84703; 85025; 99283

== ENCOUNTER 2024-08-10 12:13 | Emergency (ER) | payer MEDICAID, SELFPAY ==
[2024-08-10 12:14] VITALS: BP 128/93; PULSE 78; RESP 18; TEMP 36.9; O2SAT 100; BMI 36.0
--- NOTE | 2024-08-10 12:57 | EX.ED.DYSGE1 ---
HPI <BALTA Friedman - Last Filed: 08/10/24 14:34> History of Present Illness Chief Complaint: Abd Pain Narrative Narrative: 24-year-old female has had 5 days of suprapubic cramping and pressure with urination. She thought she saw blood in her urine. Occasionally the pain goes to her right lower back. She states her last menstrual cycle was July 15. She is not on control. She reports 1 episode of nausea and vomiting earlier this week. She states she has had laparoscopic surgery for endometriosis. PFSH <BALTA Friedman - Last Filed: 08/10/24 14:34> [facility] Medical History History of gestational hypertension Disability examination Change in bowel habit GERD (gastroesophageal reflux disease) Gastroenteritis Irritable bowel syndrome with diarrhea Anxiety and depression Seizures Acute exacerbation of chronic low back pain Insomnia Epilepsy HTN (hypertension) Headache Back problem Anxiety Abdominal pain Home Medications ?Medication ?Instructions ?Recorded ?Last Taken ?Type norethindrone (contraceptive) 0.35 0.35 mg PO QDAY #84 tabs 02/21/24 Unknown Rx mg tablet (Stephanie) omeprazole 40 mg capsule,delayed See Rx Instructions .Route 02/24/24 Unknown Rx release .COMPLEX #90 caps trazodone 50 mg tablet 50 mg PO QHS PRN insomnia #10 tabs 04/24/24 Unknown Rx labetalol 100 mg tablet 100 mg PO DAILY 04/30/24 Unknown History sulfamethoxazole 800 1 tab PO BID 5 days #10 tabs 08/10/24 Unknown Rx mg-trimethoprim 160 mg tablet (Bactrim DS) Allergy/AdvReac Type Severity Reaction Status Date / Time Iodinated Contrast Media Allergy Intermediate HIVES, Verified 08/10/24 12:16 SHORT OF BREATH tramadol Allergy Intermediate itching Verified 08/10/24 12:16 codeine phosphate (From Allergy Hives Verified 08/10/24 12:16 Tylenol-Codeine #3) morphine Allergy Itching Verified 08/10/24 12:16 oxycodone HCl (From Percocet) Allergy Hives Verified 08/10/24 12:16 red dye Allergy Hives Verified 08/10/24 12:16 hydromorphone (From Dilaudid) AdvReac Itching Verified 08/10/24 12:16 Family History Mother Endometriosis Depression with anxiety Grandfather Diabetes Aunt Diabetes Grandfather Cancer unknown [place], passed of Unknown Hypertension High cholesterol Father Depression with anxiety Bipolar 1 disorder Surgical History History of laminectomy H/O laparoscopy Social History Smoking Status: Current some day smoker tobacco type: cigarettes and e-cigarettes Electronic Cigarette Use: with nicotine alcohol intake: never substance use type: does not use caffeine: Yes what type of physical activity do you participate in: none seatbelt use: always do you feel safe at home: Yes 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 CVS: Negative for chest pain. Respiratory: Negative for shortness of breath. GI: Positive for abdominal pain, nausea, vomiting. Negative for diarrhea, constipation, melena, hematochezia. : Negative for dysuria. EXAM <BALTA Friedman - Last Filed: 08/10/24 14:34> Physical Exam Narrative Exam Narrative: CONST: Patient sitting in no acute distress. EYES: Normal inspection. NECK: Normal inspection. RESP: No respiratory distress, CTAB. CVS: Regular rate and rhythm, no murmur, no gallop. ABD: Soft with suprapubic tenderness, no guarding or rebound, nondistended. Back: Normal inspection, no CVA tenderness. SKIN: Color normal, no rash, warm, dry, intact. EXTREMITIES: Normal appearance, no pedal edema. NEURO: Alert and answering questions appropriately. PSYCH: Normal affect. Const Vital Signs: 08/10/24 12:14 08/10/24 14:14 08/10/24 14:29 Temperature 98.4 F 97.6 F L Temperature Source Oral Pulse Rate 78 98 98 Respiratory Rate 18 18 18 Blood Pressure 128/93 H 122/86 H 122/86 H Blood Pressure Mean 104 98 98 Pulse Ox 100 98 98 Oxygen Delivery Method Room Air <Dr. Babak Whitaker MD - Last Filed: 08/10/24 14:32> Physical Exam Const Vital Signs: 08/10/24 12:14 08/10/24 14:14 08/10/24 14:29 Temperature 98.4 F 97.6 F L Temperature Source Oral Pulse Rate 78 98 98 Respiratory Rate 18 18 18 Blood Pressure 128/93 H 122/86 H 122/86 H Blood Pressure Mean 104 98 98 Pulse Ox 100 98 98 Oxygen Delivery Method Room Air [facility] <BALTA Friedman - Last Filed: 08/10/24 14:34> [facility] Narrative Medical decision making narrative: 24-year-old female presents with suprapubic pain and pressure with urination. Patient was seen here on 07/28/2024 for RUQ abdominal pain. I reviewed her visit and she had normal blood work, negative serum test, and a CT of the abdomen/pelvis showing a fluid density mass in the right hemipelvis which could be an ovarian cyst. She does not have any right sided pelvic pain today. I am not concerned for appendicitis or ovarian torsion based on her very minimal symptoms and I do not think she needs repeat blood work or CAT scan. She is reporting suprapubic pain and pressure with urination. Although her urine does not look grossly infected today, I will treat with 5 days of Bactrim and send a culture. I recommended she follow-up with her press machine feeder. She was discharged in stable condition. I have personally performed a face to face assessment of the patient and have reviewed the JEREL Note. I performed a substantive portion of the visit including all aspects of the following. My hernandez findings include: History is [24-year-old female complaint of suprapubic abdominal discomfort. Recent seen in the emergency department a CAT scan done around the fourth showed a ovarian cyst. She denies any vaginal bleeding or discharge. Last menstrual period was around the 22nd.] Exam is [well-appearing 24-year-old female. Vital signs today stable and afebrile. H EENT exam unremarkable. Moist mucous members. Neck nontender. Lungs clear to auscultation. Heart regular rate and rhythm no murmur. Rate about 85. Chest wall and ribs nontender. Abdomen soft, nontender nondistended normal bowel sounds without peritoneal signs. No hernia or mass. No distention. Back nontender. Moving all 4 extremities. Nontender no edema. Neurologically patient awake alert no focal motor deficits.] Medical Decision Making [24-year-old female urine shows 5-10 white cells 1+ bacteria. May or may not be a UTI. Should be started on Bactrim p.o. twice daily for 5 days. She had a recent CAT scan showing ovarian cyst. She will follow-up with her [employer] group.] Other additions or changes: [None] Lab Data Attestation: I reviewed the patient's lab results. Labs: Laboratory Results - last 24 hr 08/10/24 13:05 Urine Color Yellow Urine Clarity Sl. Cloudy Urine pH 6.0 Ur Specific [place] 1.025 Urine Protein 30 H Urine Glucose (UA) Normal Urine Ketones 15 H Urine Occult Blood 10 H Urine Nitrite Negative Urine Bilirubin Negative Urine Urobilinogen 1 H Ur Leukocyte Esterase 25 H Urine RBC 0 SEEN Urine WBC 0-5 SEEN Ur Squamous Epith Cells 5-10 SEEN Urine Bacteria 1+ Urine Mucus 2+ Urine Test Negative <Dr. Babak Whitaker MD - Last Filed: 08/10/24 14:32> [facility] MDM Narrative Medical decision making narrative: I have personally performed a face to face assessment of the patient and have reviewed the JEREL Note. I performed a substantive portion of the visit including all aspects of the following. My hernandez findings include: History is [24-year-old female complaint of suprapubic abdominal discomfort. Recent seen in the emergency department a CAT scan done around the fourth showed a ovarian cyst. She denies any vaginal bleeding or discharge. Last menstrual period was around the 22nd.] Exam is [well-appearing 24-year-old female. Vital signs today stable and afebrile. H EENT exam unremarkable. Moist mucous members. Neck nontender. Lungs clear to auscultation. Heart regular rate and rhythm no murmur. Rate about 85. Chest wall and ribs nontender. Abdomen soft, nontender nondistended normal bowel sounds without peritoneal signs. No hernia or mass. No distention. Back nontender. Moving all 4 extremities. Nontender no edema. Neurologically patient awake alert no focal motor deficits.] Medical Decision Making [24-year-old female urine shows 5-10 white cells 1+ bacteria. May or may not be a UTI. Should be started on Bactrim p.o. twice daily for 5 days. She had a recent CAT scan showing ovarian cyst. She will follow-up with her [employer] group.] Other additions or changes: [None] Lab Data Labs: Laboratory Results - last 24 hr 08/10/24 13:05 Urine Color Yellow Urine Clarity Sl. Cloudy Urine pH 6.0 Ur Specific [place] 1.025 Urine Protein 30 H Urine Glucose (UA) Normal Urine Ketones 15 H Urine Occult Blood 10 H Urine Nitrite Negative Urine Bilirubin Negative Urine Urobilinogen 1 H Ur Leukocyte Esterase 25 H Urine RBC 0 SEEN Urine WBC 0-5 SEEN Ur Squamous Epith Cells 5-10 SEEN Urine Bacteria 1+ Urine Mucus 2+ Urine Test Negative Discharge Plan Triage Chief Complaint: Abd Pain ED Midlevel Provider: Yovana Loving ED Provider: Babak Whitaker Dx/Rx/DC Orders Clinical Impression: Suprapubic abdominal pain, UTI (urinary tract infection) Instructions: Urinary Tract Infections in Women Prescriptions: New sulfamethoxazole-trimethoprim [Bactrim DS] 800-160 mg tablet 1 tab PO BID 5 Days Qty: 10 0RF No Action norethindrone (contraceptive) [Stephanie] 0.35 mg tablet 0.35 mg PO QDAY Qty: 84 4RF trazodone 50 mg tablet 50 mg PO QHS PRN (Reason: insomnia) Qty: 10 0RF labetalol 100 mg tablet 100 mg PO DAILY omeprazole 40 mg capsule,delayed release(DR/EC) See Rx Instructions .ROUTE .COMPLEX Qty: 90 1RF Dose Instruction: 40 MG ORALLY DAILY Rx Instructions: 40 MG ORALLY DAILY Primary Care Provider: Care Physician,No Primary Referrals: Care Physician,No Primary [Primary Care Provider] - Activity Restrictions/Additional Instructions: I prescribed an antibiotic to treat a potential urinary tract infection (UTI). Please follow-up with your primary care doctor. Print Language: South African Disposition Disposition: Home, Self Care Discharge Date/Time: 08/10/24 14:31
[2024-08-10 13:15] LABS: Red Blood Cells-Urine 0 SEEN /hpf (0-5)
[2024-08-10 13:21] LABS: Color, Urine Yellow (Yellow); Glucose, Dipstick Normal (Normal); Ketone-Dipstick 15 mg/dl (Negative); Leukocyte Esterase-Dipstick 25 /ul (Negative); Nitrite-Dipstick Negative (Negative); Occult Blood-Urine 10 /ul (Negative); Protein-Dipstick 30 mg/dl (Negative); Specific Gravity, Urine 1.025 (1.002-1.030); Urine Bilirubin Dipstick Negative (Negative); Urine Clarity Sl. Cloudy (Clear); Urine Urobilinogen 1 mg/dl (Normal)
[2024-08-10 13:32] LABS: Mucous, Urine 2+ /hpf (<or=2+); Squamous Epithelial Cells - UA 5-10 SEEN /hpf (5-10); White Blood Cells 0-5 SEEN /hpf (0-5)
[2024-08-10 13:33] LABS: Bacteria 1+ /hpf (None Seen)
[2024-08-10 13:34] LABS: Internal QC Validated? YES +Cl - CLEAR BKGD; Pregnancy, Urine Negative Negative
[2024-08-10 14:14] VITALS: BP 122/86; PULSE 98; RESP 18; O2SAT 98
[2024-08-10 14:29] VITALS: BP 122/86; PULSE 98; RESP 18; TEMP 36.4; O2SAT 98
== END 2024-08-10 14:31 | disposition home or self-care (01) ==
PROVIDERS: Physician Assistant; Emergency Provider Emergency Medicine; Visit Provider Emergency Medicine
DX: N39.0 Urinary tract infection, site not specified (principal); I10 Essential (primary) hypertension; F17.210 Nicotine dependence, cigarettes, uncomplicated; F17.290 Nicotine dependence, other tobacco product, uncomplicated; Z79.899 Other long term (current) drug therapy

== ENCOUNTER → 2024-08-22 | Outpatient (CLI) | payer MEDICAID, SELFPAY ==
[2024-08-22 12:45] LABS: Hematocrit 40.3 % (37-47); Hemoglobin 13.2 g/dL (12.0-15.0); Mean Corp Hgb Conc 32.8 g/dL (32-36); Mean Corpuscular Hgb 29.8 pg (27.0-32.0); Mean Platelet Vol. 9.9 fl (6.2-12.0); Platelet Count 274 K/mm3 (150-450); RBC Distribution Width CV 13.6 % (11.6-14.6); RBC Distribution Width SD 45.6 fl (35.1-43.9); Red Blood Count 4.43 M/mm3 (4.2-5.4); White Blood Count 6.3 K/mm3 (4.4-11.0)
[2024-08-22 13:40] LABS: Estradiol 61.7 pg/mL; Follicle Stimulating Hormone 3.8 mIU/mL; Luteinizing Hormone 5.4 mIU/mL; Thyroid Stim Hormone (TSH) 0.963 uIU/mL (0.358-3.740)
[2024-08-24 04:07] LABS: PROGESTERONE 0.1 ng/mL (.)
[2024-08-24 09:07] LABS: PROLACTIN 7.9 ng/mL (4.8-33.4)
== END | disposition home or self-care (01) ==
LOC: VSLAB 12:03
PROVIDERS: PCP Family Medicine; Visit Provider Family Medicine
DX: N92.6 Irregular menstruation, unspecified (principal)
CPT/HCPCS: 36415; 82627; 82670; 83001; 83002; 84144; 84146; 84403; 84443; 85027; 82626

== ENCOUNTER 2024-09-20 20:52 | Emergency (ER) | payer MEDICAID, SELFPAY ==
[2024-09-20 20:52] VITALS: BP 136/88; PULSE 96; RESP 18; TEMP 36.9; O2SAT 98; BMI 34.1
[2024-09-20 21:18] VITALS: BP 119/73; PULSE 128; RESP 19; TEMP 36.6; O2SAT 99
[2024-09-20] MEDS: Ondansetron ODT 4 MG Tablet PO (21:39)
[2024-09-20] MEDS: Dicyclomine 10 MG Capsule 20 MG PO (21:39)
--- NOTE | 2024-09-20 21:59 | EDS_ITS ---
HPI History of Present Illness Chief Complaint: Complaint Narrative Narrative: Patient is a 24-year-old female with a past medical history of GERD, anxiety, depression, seizures, hypertension who presented to the emergency department the chief complaint of painful urination and not feeling well. States that she has had painful burning itch for the past few days and tried taking Azo which originally helped her symptoms and then they returned. She states that she overall feels terrible. States that her menstrual cycle was last week therefore she does not believe she is . Patient denies any recent contacts [facility] Medical History History of gestational hypertension Disability examination Change in bowel habit GERD (gastroesophageal reflux disease) Gastroenteritis Irritable bowel syndrome with diarrhea Anxiety and depression Seizures Acute exacerbation of chronic low back pain Insomnia Epilepsy HTN (hypertension) Headache Back problem Anxiety Abdominal pain Home Medications ?Medication ?Instructions ?Recorded ?Last Taken ?Type omeprazole 40 mg capsule,delayed See Rx Instructions . Route 02/24/24 Unknown Rx release .COMPLEX #90 caps metformin 500 mg tablet,extended 500 mg PO QPM #30 tab s 09/06/24 Unknown Rx release 24 hr cephalexin 500 mg capsule 500 mg PO Q12H 5 days #10 ca ps 09/20/24 Unknown Rx dicyclomine 20 mg tablet 20 mg PO TID #30 tabs Unknown Rx labetalol 1 tab PO DAILY 09/20/24 Unkn own History lamotrigine 100 mg tablet 100 mg PO BID 09/20/24 Unkno wn History ondansetron 4 mg disintegrating 4 mg PO Q6H PRN nausea and 09/20/24 Unknown Rx tablet vomiting #20 tabs prazosin 1 mg capsule 1 mg PO QHS 09/20/24 Unknown History Allergy/AdvReac Type Severity Reaction Status Date / Time Iodinated Contrast Media Allergy Intermediate HIVES, Verified 09/20/24 20:53 SHORT OF BREATH tramadol Allergy Intermediate itching Verified 09/20/24 20:53 codeine phosphate (From Allergy Hives Verified 09/20/24 20:53 Tylenol-Codeine #3) morphine Allergy Itching Verified 09/20/24 20:53 oxycodone HCl (From Percocet) Allergy Hives Verified 09/20/24 20:53 red dye Allergy Hives Verified 09/20/24 20:53 hydromorphone (From Dilaudid) AdvReac Itching Verified 09/20/24 20:53 Family History Mother Endometriosis Depression with anxiety Grandfather Diabetes Aunt Diabetes Grandfather Cancer unknown [place], passed of Unknown Hypertension High cholesterol Father Depression with anxiety Bipolar 1 disorder Surgical History History of laminectomy H/O laparoscopy Social History Smoking Status: Current every day smoker tobacco type: cigarettes and e- cigarettes Electronic Cigarette Use: with nicotine alcohol intake: never substance use type: does not use caffeine: Yes what type of physical activity do you participate in: none seatbelt use: always do you feel safe at home: Yes additional social history: [facility] ROS ROS ED ROS Narrative Constitutional: Complains of chills and bodyaches denies dizziness Cardiovascular: Denies chest pain or palpitations Respiratory: Denies coughing wheezing shortness of breath Abdomen: Denies abdominal pain nausea vomiting : Complains of urinary symptoms as noted above Neurological: Denies numbness, weakness, tingling Musculoskeletal: Denies back pain Skin: Denies rashes or lesions EXAM Physical Exam Narrative Exam Narrative: General: Patient lying in bed did appear to be uncomfortable not feeling well overall Head: Atraumatic, normocephalic Eyes: PERRL bilaterally, EOMI bilateral, no conjunctival injection noted Neck: Soft, supple, trach midline Cardiovascular: Regular rate and rhythm no murmurs gallops rubs noted Respiratory: Clear to auscultation bilaterally Abdomen: Soft, nondistended, nontender to palpation Extremities: +5/5 strength noted in the bilateral upper and lower extremities, radial pulses +2/4 in the bilateral upper extremities Neurological: Patient following commands knew that she was at [facility] years 2024 Skin: Warm, dry, intact no rashes or lesions noted Const Vital Signs: 09/20/24 20:52 09/20/24 21:18 09/20/24 21:18 Temperature 98.4 F 97.8 F 97.8 F Temperature Source Oral Oral Oral Pulse Rate 96 128 H 128 H Respiratory Rate 18 19 H 19 H Respiratory Effort Respiratory Pattern Blood Pressure 136/88 H 119/73 119/73 Blood Pressure Mean 104 88 88 Pulse Ox 98 99 99 Oxygen Delivery Method Room Air Room Air Room Air 09/20/24 21:36 09/20/24 22:00 09/20/24 23:00 Temperature 98.0 F 97.9 F Temperature Source Oral Oral Pulse Rate 71 72 Respiratory Rate 18 18 Respiratory Effort Normal Non-Labored Respiratory Pattern Tachypnea Blood Pressure 131/82 H 124/78 H Blood Pressure Mean 98 93 Pulse Ox 96 98 Oxygen Delivery Method Room Air Room Air MDM MDM MDM Narrative Medical decision making narrative: Patient is a 24-year-old female who presented to the emergency department with a chief complaint of generalized not feeling well and painful urination. On the differential diagnose includes but not limited to UTI, pyelonephritis, , influenza, COVID, hypoglycemia. Once workup is obtained and reviewed she will be reevaluated. Patient be given Bentyl and Zofran. Patient's urinalysis reviewed and was significant for urinary tract infection with positive nitrates 500 cassette esterase greater than 100 white cells with 1+ bacteria she was given a gram Rocephin urine was sent for culture test negative. Patient tested negative for COVID flu RSV. On reevaluation the patient and she is still having significant pain in the lower abdomen therefore workup will be added on including blood work and CT abdomen pelvis without contrast that she has an iodine Allergy including hives. I question the patient on her Vivitrol and she stated that she did not know why she is on this her significant other bedside states that are you not on this as one-sided body will go numb periodically she states that that this may be the case she cannot recall. I questioned her history of opiate abuse/substance abuse that she states that she went to rehab a few months ago therefore she will not be given any narcotics here in the emergency department and she will be given a gram of Tylenol. Once workup is obtained reviewed she will be reevaluated. Patient's blood work and CT scan pending therefore the case will be signed out to overnight provider to follow-up on these results and make ultimate disposition Lab Data Labs: Laboratory Results - last 24 hr 09/20/24 09/20/24 22:00 22:06 Urine Color Red Urine Clarity Cloudy Urine pH 7.0 Ur Specific [place] 1.015 Urine Protein 100 H Urine Glucose (UA) Normal Urine Ketones 50 H Urine Occult Blood 25 H Urine Nitrite Positive H Urine Bilirubin 6 H Urine Urobilinogen 12 H Ur Leukocyte Esterase 500 H Urine RBC 10-25 SEEN Urine WBC >100 SEEN Ur Squamous Epith Cells 5-10 SEEN Urine Bacteria 1+ Urine Mucus 0 SEEN Urine Test Negative POC Glucose 98 Discharge Plan Triage Chief Complaint: Complaint Other Complaint: Weakness ED Provider: Levi Chapa Dx/Rx/DC Orders Clinical Impression: Abdominal pain, Urinary tract infection Prescriptions: New cephalexin 500 mg capsule 500 mg PO Q12H 5 Days Qty: 10 0RF ondansetron 4 mg tablet,disintegrating 4 mg PO Q6H PRN (Reason: nausea and vomiting) Qty: 20 0RF dicyclomine 20 mg tablet 20 mg PO TID Qty: 30 0RF No Action metformin 500 mg tablet extended release 24 hr 500 mg PO QPM Qty: 30 3RF labetalol 1 tab PO DAILY lamotrigine 100 mg tablet 100 mg PO BID Patient Comments: TAKE 1/2 (ONE-HALF) TABLET BY MOUTH AFTER BREAKFAST AND 1 TAB AT BEDTIME prazosin 1 mg capsule 1 mg PO QHS omeprazole 40 mg capsule,delayed release(DR/EC) See Rx Instructions .ROUTE .COMPLEX Qty: 90 1RF Dose Instruction: 40 MG ORALLY DAILY Rx Instructions: 40 MG ORALLY DAILY Primary Care Provider: Chika Hugo Referrals: Chika Hugo, DO [Primary Care Provider] - Activity Restrictions/Additional Instructions: Follow-up with your doctor in outpatient setting. Return with worse symptoms or concerns. Follow-up and urine culture with your primary care physician. Take antibiotics and other prescriptions are sent to your pharmacy as prescribed. Print Language: Belarusian Disposition Disposition: Home, Self Care
[2024-09-20 22:00] VITALS: BP 131/82; PULSE 71; RESP 18; TEMP 36.7; O2SAT 96
[2024-09-20 22:20] LABS: Mucous, Urine 0 SEEN /hpf (<or=2+)
[2024-09-20 22:28] LABS: Bedside Glucose 98 mg/dL (74-106)
[2024-09-20 22:32] LABS: Color, Urine Red (Yellow); Glucose, Dipstick Normal (Normal); Ketone-Dipstick 50 mg/dl (Negative); Leukocyte Esterase-Dipstick 500 /ul (Negative); Nitrite-Dipstick Positive (Negative); Occult Blood-Urine 25 /ul (Negative); Protein-Dipstick 100 mg/dl (Negative); Specific Gravity, Urine 1.015 (1.002-1.030); Urine Clarity Cloudy (Clear); Urine Urobilinogen 12 mg/dl (Normal)
[2024-09-20 22:34] LABS: Urine Bilirubin Dipstick 6 mg/dL (Negative)
[2024-09-20 23:00] VITALS: BP 124/78; PULSE 72; RESP 18; TEMP 36.6; O2SAT 98
[2024-09-20 23:01] LABS: Bacteria 1+ /hpf (None Seen); Internal QC Validated? YES +Cl - CLEAR BKGD; Pregnancy, Urine Negative Negative; Red Blood Cells-Urine 10-25 SEEN /hpf (0-5); Squamous Epithelial Cells - UA 5-10 SEEN /hpf (5-10); White Blood Cells >100 SEEN /hpf (0-5)
--- NOTE | 2024-09-20 23:10 | CT_ITS ---
PROCEDURE: ABDOMEN/PELVIS WITHOUT CONT REASON FOR EXAM: Lower abdominal pain TECHNIQUE: Abdomen and pelvis CT without intravenous contrast. Coronal and sagittal reformatted images COMPARISON: 07/28/2024 FINDINGS: Noncontrast technique limits evaluation of the abdominal and pelvic viscera. Lung bases: Clear Liver: Unremarkable. Gallbladder: Unremarkable. Spleen: Unremarkable. Pancreas: Unremarkable. Adrenals: Unremarkable. Kidneys: Unremarkable. No renal stones, hydronephrosis or perinephric stranding. No evidence of ureteral or bladder stone. Bladder: Unremarkable. Reproductive Organs: Unremarkable. Bowel: Unremarkable. Appendix: Normal caliber without secondary signs. Lymph nodes: No suspicious lymph node enlargement. Vasculature: Major vascular structures are unremarkable on noncontrast imaging. Peritoneum / Retroperitoneum: No ascites. No free air. Bones: Unremarkable. CT/Abdomen/Pelvis without Cont IMPRESSION: No evidence of acute intra-abdominal process on noncontrast imaging. One or more dose reduction techniques were used (e.g., Automated exposure contr ol, adjustment of the mA and/or kV according to patient size, use of iterative reconstruction technique). Reading Location: [id number]
[2024-09-20] MEDS: 0.9% Normal Saline (1000mL) 1,000 ML 999 ML IV (23:38)
[2024-09-20] MEDS: Acetaminophen 500 MG Tablet 1000 MG PO (23:38)
[2024-09-20] MEDS: Ceftriaxone 1 GM/50 ML BAG IV (23:38)
[2024-09-21] VITALS: BP 130/92; PULSE 73; RESP 16; TEMP 36.7; O2SAT 99
[2024-09-21 00:20] LABS: Absolute Neutrophil Count 6.2 X10^3/uL (2.0-7.7); Basophil# 0.03 X10^3/uL; Basophil% 0.3 % (0-1); Eosinophil# 0.02 X10^3/uL; Eosinophils% 0.2 % (0-5); Hematocrit 39.5 % (37-47); Hemoglobin 13.3 g/dL (12.0-15.0); Lipase 14 U/L (13-75); Lymphocyte % 28.1 % (19-41); Mean Corp Hgb Conc 33.7 g/dL (32-36); Mean Corpuscular Hgb 30.4 pg (27.0-32.0); Mean Corpuscular Volume 90.2 fL (81-99); Mean Platelet Vol. 10.2 fl (6.2-12.0); Monocyte# 0.68 X10^3/uL; Monocyte% 7.1 % (0-10); NRBC Flagged by Analyzer 0 % (0-5); Neutrophil # 6.15 X10^3/uL (2.7-7.7); Neutrophil % 64.1 % (47-70); Platelet Count 298 K/mm3 (150-450); RBC Distribution Width CV 14.1 % (11.6-14.6); RBC Distribution Width SD 46.5 fl (35.1-43.9); Red Blood Count 4.38 M/mm3 (4.2-5.4); White Blood Count 9.6 K/mm3 (4.4-11.0)
[2024-09-21 00:37] LABS: ALB/GLOB Ratio 1.4 RATIO (0.9-2.4); AST(SGOT) 27 U/L (<=31); Alanine Aminotransfer ALT/SGPT 31 U/L (<=34); Albumin, Serum 4.5 g/dL (3.5-5.0); Alkaline Phosphatase 65 U/L (35-104); Anion Gap 15 (5-15); BUN 12 mg/dL (4-19); BUN/Creat Ratio 16.3 RATIO (10-20); Calcium 9.8 mg/dL (7.6-11.0); Carbon Dioxide 22.2 mmol/L (22.0-29.0); Chloride 101 mmol/L (96-108); Creatinine, Serum 0.74 mg/dL (0.70-1.20); EST Glomerular Filtration Rate 115 (>60); Estimated Creatinine Clearance 120.77 ml/min; Globulin 3.2 g/dL (2.2-4.2); Glucose 87 mg/dL (70-99); Potassium 3.5 mmol/L (3.3-5.1); Protein, Total 7.7 g/dL (5.9-8.4); Sodium Level 138 mmol/L (133-145)
[2024-09-21 01:00] VITALS: BP 144/82; PULSE 69; RESP 18; TEMP 36.6; O2SAT 98
[2024-09-21 01:27] VITALS: BP 144/82; PULSE 78; RESP 16; TEMP 37.1; O2SAT 100
== END 2024-09-21 01:27 | disposition home or self-care (01) ==
PROVIDERS: Emergency Provider Emergency Medicine; PCP Family Medicine; Referring Provider Emergency Medicine; Visit Provider Emergency Medicine
DX: N39.0 Urinary tract infection, site not specified (principal); R10.30 Lower abdominal pain, unspecified; I10 Essential (primary) hypertension; F17.210 Nicotine dependence, cigarettes, uncomplicated; F17.290 Nicotine dependence, other tobacco product, uncomplicated; Z79.899 Other long term (current) drug therapy
CPT/HCPCS: 74176; 80053; 81001; 81025; 82962; 83690; 85025; 87086; 87088; 87186; 87631; 96365; 99283; A4216

== ENCOUNTER 2024-11-12 00:57 | Emergency (ER) | payer MEDICAID, SELFPAY ==
[2024-11-12 00:58] VITALS: BP 133/85; PULSE 89; RESP 18; TEMP 36.8; O2SAT 100; BMI 32.7
--- NOTE | 2024-11-12 01:37 | EDS_ITS ---
HPI History of Present Illness Chief Complaint: Back Informant: patient Narrative Narrative: 24-year-old female with chronic low back issues states in the last few days the pain has been worsening and now she is having some pain going down her right leg to her foot. She denies any weakness in the leg. No bowel or bladder dysfunction. No saddle anesthesia. She denies any recent injuries. She cannot remember any overuse or repetitive bending over that could have made this worse but it has flared up in the past. She states she has had an MRI in the past that showed disc disease, stating I have disks that are out. She had a laminectomy in the past but the MRI was obtained since then. No recent surgeries in the past couple months. No abdominal pain or dysuria. Back pain is low lumbar, worse into the right buttock. Prior similar symptoms: Yes and With [facility] Medical History History of gestational hypertension Disability examination Change in bowel habit GERD (gastroesophageal reflux disease) Gastroenteritis Irritable bowel syndrome with diarrhea Anxiety and depression Seizures Acute exacerbation of chronic low back pain Insomnia Epilepsy HTN (hypertension) Headache Back problem Anxiety Abdominal pain Home Medications ?Medication ?Instructions ?Recorded ?Last Taken ?Type omeprazole 40 mg capsule,delayed See Rx Instructions . Route 02/24/24 Unknown Rx release .COMPLEX #90 caps metformin 500 mg tablet,extended 500 mg PO QPM #30 tab s 09/06/24 Unknown Rx release 24 hr cephalexin 500 mg capsule 500 mg PO Q12H 5 days #10 ca ps 09/20/24 Unknown Rx dicyclomine 20 mg tablet 20 mg PO TID #30 tabs Unknown Rx labetalol 1 tab PO DAILY 09/20/24 Unkn own History lamotrigine 100 mg tablet 100 mg PO BID 09/20/24 Unkno wn History ondansetron 4 mg disintegrating 4 mg PO Q6H PRN nausea and 09/20/24 Unknown Rx tablet vomiting #20 tabs prazosin 1 mg capsule 1 mg PO QHS 09/20/24 Unknown History Allergy/AdvReac Type Severity Reaction Status Date / Time Iodinated Contrast Media Allergy Intermediate HIVES, Verified 11/12/24 01:03 SHORT OF BREATH tramadol Allergy Intermediate itching Verified 11/12/24 01:03 morphine Allergy Itching Verified 11/12/24 01:03 oxycodone HCl (From Percocet) Allergy Hives Verified 11/12/24 01:03 red dye Allergy Hives Verified 09/20/24 20:53 hydromorphone (From Dilaudid) AdvReac Itching Verified 11/12/24 01:03 Family History Mother Endometriosis Depression with anxiety Grandfather Diabetes Aunt Diabetes Grandfather Cancer unknown [place], passed of Unknown Hypertension High cholesterol Father Depression with anxiety Bipolar 1 disorder Surgical History History of laminectomy H/O laparoscopy Social History Smoking Status: Current every day smoker tobacco type: cigarettes and e- cigarettes Electronic Cigarette Use: with nicotine alcohol intake: never substance use type: does not use caffeine: Yes what type of physical activity do you participate in: none seatbelt use: always do you feel safe at home: Yes additional social history: [facility] ROS ROS ED Constitutional Constitutional ED: Denies chills or fever(s) Gastrointestinal Gastrointestinal: Denies abdominal pain, constipation, fecal incontinence, nausea or vomiting Genitourinary Genitourinary ED: Reports other Details: no urinary retention ; Denies abdominal discomfort or urinary incontinence Musculoskeletal Musculoskeletal: Reports as per HPI and back pain; Denies neck pain Integumentary Denies rash or wounds Neurologic Neurologic: Denies headache(s), paresthesias or weakness EXAM Physical Exam Const Vital Signs: 11/12/24 00:58 Temperature 98.2 F Temperature Source Oral Pulse Rate 89 Respiratory Rate 18 Blood Pressure 133/85 H Blood Pressure Mean 101 Pulse Ox 100 Oxygen Delivery Method Room Air Positive well nourished and well developed General Appearance ED: well developed and NAD HEENT Negative for trauma or tenderness Eyes PERRL and EOMs intact bilaterally Neck full ROM and supple GI normal to inspection, nondistended, normoactive bowel sounds, soft to palpation and non-tender Back/Spine normal to inspection Back/Spine Narrative: Right straight leg raise yields some burning discomfort in the thigh but no radicular symptoms are reproduced. No cross straight leg raise signs. Left- sided straight leg raise is negative. Lumbar Spine / Lower Back: ROM limited, paraspinal muscle tenderness and straight leg raise negative bilaterally; Negative for lumbar spinal tenderness Extremity normal to inspection, full ROM and no pedal edema Neuro oriented x3 and no sensory deficits noted Sensorium / Orientation: alert Motor Exam: strength 5/5 throughout and clonus absent Deep Tendon Reflexes: Rt Patellar (L4): 2+, Lt Patellar (L4): 2+, Rt Ankle (S1): 2+ and Lt Ankle (S1): 2+ Deep Tendon Reflexes Back: Rt Patellar (L4): 2+, Lt Patellar (L4): 2+, Rt Ankle (S1): 2+ and Lt Ankle (S1): 2+ Plantar Reflex: Downgoing: bilateral Psych mental status grossly normal and thought process normal Skin no rashes or lesions noted and no wounds MDM MDM MDM Narrative Medical decision making narrative: Patient has no bony tenderness in her back, she has no objective neurologic de ficits and no signs or symptoms of cauda equina syndrome. She had an MRI of her lumbar spine 1 year ago that showed some minor posterior disc herniations in the L4-L5 and L5-S1 areas. She is treated here with IM Norflex and a couple of Ladora, and will be discharged to follow-up with her doctor. This is chronic and so I do not think we need to prescribe her narcotics for this right now. History & Record Review Discussion w/independent historian: Patient and Significant other Discharge Plan Triage Chief Complaint: Back ED Provider: Toni Carson Dx/Rx/DC Orders Clinical Impression: Acute exacerbation of chronic low back pain Instructions: ED Back Pain (Acute or Chronic) Prescriptions: No Action metformin 500 mg tablet extended release 24 hr 500 mg PO QPM Qty: 30 3RF labetalol 1 tab PO DAILY lamotrigine 100 mg tablet 100 mg PO BID Patient Comments: TAKE 1/2 (ONE-HALF) TABLET BY MOUTH AFTER BREAKFAST AND 1 TAB AT BEDTIME prazosin 1 mg capsule 1 mg PO QHS cephalexin 500 mg capsule 500 mg PO Q12H 5 Days Qty: 10 0RF ondansetron 4 mg tablet,disintegrating 4 mg PO Q6H PRN (Reason: nausea and vomiting) Qty: 20 0RF dicyclomine 20 mg tablet 20 mg PO TID Qty: 30 0RF omeprazole 40 mg capsule,delayed release(DR/EC) See Rx Instructions .ROUTE .COMPLEX Qty: 90 1RF Dose Instruction: 40 MG ORALLY DAILY Rx Instructions: 40 MG ORALLY DAILY Primary Care Provider: Chika Hugo Referrals: Chika Hugo, DO [Primary Care Provider] - As soon as possible Print Language: Greenlandic Disposition Disposition: Home, Self Care Discharge Date/Time: 11/12/24 02:09
[2024-11-12] MEDS: Orphenadrine 60 MG/2 ML Ampul IM (01:49)
[2024-11-12] MEDS: HYDROcodone Bitartrate/Apap 5/325 Tablet PO (01:49)
== END 2024-11-12 02:09 | disposition home or self-care (01) ==
PROVIDERS: Emergency Provider Emergency Medicine; PCP Family Medicine; Visit Provider Emergency Medicine
DX: G89.29 Other chronic pain (principal); I10 Essential (primary) hypertension; M54.50 Low back pain, unspecified; K21.9 Gastro-esophageal reflux disease without esophagitis; Z79.899 Other long term (current) drug therapy; F17.210 Nicotine dependence, cigarettes, uncomplicated; F17.290 Nicotine dependence, other tobacco product, uncomplicated
CPT/HCPCS: 96372; 99282

== ENCOUNTER → 2024-11-21 | Outpatient (CLI) | payer MEDICAID, SELFPAY ==
[2024-11-26 14:08] LABS: HPV APTIMA, High Risk Negative (Negative)
== END | disposition home or self-care (01) ==
LOC: LABSPEC 13:32
PROVIDERS: PCP Family Medicine; Referring Provider Nurse Practitioner Women's Health; Visit Provider Nurse Practitioner Women's Health
DX: Z12.4 Encounter for screening for malignant neoplasm of cervix (principal)
CPT/HCPCS: 87624; 88175; G0145

== ENCOUNTER 2025-01-02 05:38 | Emergency (ER) | payer MEDICAID, SELFPAY ==
[2025-01-02 05:40] VITALS: BP 136/97; PULSE 94; RESP 16; TEMP 36.3; O2SAT 98; BMI 31.2
--- NOTE | 2025-01-02 06:04 | EX.ED.VIS.PS ---
HPI HPI - Psych History of Present Illness Chief Complaint: Suicidal Informant: patient, EMS and police/residential treatment staff Narrative Narrative: 24-year-old female states that she feels that she is a burden to everyone and that she took pills this evening in an effort to end her life. She states that she regularly sees psychiatry through being on counseling center. States she is not due to see her psychiatrist for another week. States she had a couple beers tonight. She reportedly took 6 ibuprofen. She states she has never done anything to harm herself in the past other than cutting when she was a teenager. Patient states she takes Lamictal metformin and omeprazole. She denies any recreational drugs. She is not currently working due to chronic back pain from disc disease. She states she has been diagnosed with bipolar disorder with depression and anxiety. She believes she took the medications around an hour before arrival but does not know the exact time. [facility] Medical History History of gestational hypertension Disability examination Change in bowel habit GERD (gastroesophageal reflux disease) Gastroenteritis Irritable bowel syndrome with diarrhea Anxiety and depression Seizures Acute exacerbation of chronic low back pain Insomnia Epilepsy HTN (hypertension) Headache Back problem Anxiety Abdominal pain Home Medications ?Medication ?Instructions ?Recorded ?Last Taken ?Type omeprazole 40 mg capsule,delayed See Rx Instructions .Route 02/24/24 Unknown Rx release .COMPLEX #90 caps dicyclomine 20 mg tablet 20 mg PO TID #30 tabs 09/20/24 Unknown Rx labetalol 1 tab PO DAILY 09/20/24 Unknown History lamotrigine 100 mg tablet 100 mg PO BID 09/20/24 Unknown History ondansetron 4 mg disintegrating 4 mg PO Q6H PRN nausea and 09/20/24 Unknown Rx tablet vomiting #20 tabs prazosin 1 mg capsule 1 mg PO QHS 09/20/24 Unknown History metformin 500 mg tablet,extended 500 mg PO QPM #30 tabs 12/24/24 Unknown Rx release 24 hr Allergy/AdvReac Type Severity Reaction Status Date / Time Iodinated Contrast Media Allergy Intermediate HIVES, Verified 01/02/25 05:43 SHORT OF BREATH tramadol Allergy Intermediate itching Verified 01/02/25 05:43 morphine Allergy Itching Verified 01/02/25 05:43 oxycodone HCl (From Percocet) Allergy Hives Verified 01/02/25 05:43 red dye Allergy Hives Verified 01/02/25 05:43 hydromorphone (From Dilaudid) AdvReac Itching Verified 01/02/25 05:43 Family History Mother Endometriosis Depression with anxiety Grandfather Diabetes Aunt Diabetes Grandfather Cancer unknown [place], passed of Unknown Hypertension High cholesterol Father Depression with anxiety Bipolar 1 disorder Surgical History History of laminectomy H/O laparoscopy Social History household members: significant other housing: apartment Smoking Status: Current every day smoker tobacco type: cigarettes and e-cigarettes Electronic Cigarette Use: with nicotine alcohol intake: never substance use type: does not use caffeine: Yes what type of physical activity do you participate in: none seatbelt use: always do you feel safe at home: Yes additional social history: [facility] ROS ROS ED Constitutional Constitutional ED: Denies chills, fever(s) or weight loss Eyes Eyes: Denies change in vision or diplopia ENT ENT ED: Denies ear pain, rhinorrhea or sore throat Cardiovascular Cardiovascular: Denies chest pain, orthopnea, palpitations or racing heartbeat Respiratory/Chest Respiratory/Chest: Denies cough, dyspnea or orthopnea Gastrointestinal Gastrointestinal: Denies abdominal pain, diarrhea, nausea or vomiting Genitourinary Genitourinary ED: Denies dysuria, hematuria or urinary frequency Musculoskeletal Musculoskeletal: Denies arthralgias or myalgias Integumentary Denies abscess or rash Neurologic Neurologic: Denies headache(s) or weakness Psychiatric Psychiatric: Reports anxiety, depression, suicidal ideation and suicidal thoughts Endocrine Endocrinology: Denies polydipsia, polyphagia or polyuria Allergic/Immunologic Allergic/Immunologic ED: Denies mouth swelling, tongue swelling or urticaria EXAM Physical Exam Const Vital Signs: 01/02/25 05:40 01/02/25 06:38 Temperature 97.4 F L Temperature Source Oral Pulse Rate 94 82 Respiratory Rate 16 16 Blood Pressure 136/97 H 124/82 H Blood Pressure Mean 110 96 Pulse Ox 98 97 Oxygen Delivery Method Room Air Room Air Positive well nourished and well developed General Appearance ED: well developed and NAD HEENT Reports normocephalic, head/scalp atraumatic and moist mucous membranes Eyes PERRL and EOMs intact bilaterally Neck no lymphadenopathy, supple and no JVD Resp normal respiratory effort and clear to auscultation bilaterally Cardio regular rate, regular rhythm and no murmurs GI normal to inspection, nondistended, normoactive bowel sounds and non-tender Palpation: soft Back/Spine no CVA tenderness and normal ROM Extremity normal to inspection General Extremety ED: Negative for edema General Extremity: Negative for edema Neuro oriented x3 and CN's II-XII intact bilaterally Sensorium / Orientation: alert Motor Exam: strength 5/5 throughout Psych Psych Narrative: Patient is crying. She states that she does not know to most questions. She avoids eye contact and is fidgety with her hands. Patient however states she is not currently feeling suicidal. She does not want to go to a psychiatric hospital. Appearance: grossly normal Activity / Motor Behavior: fidgetting and avoids eye contact Speech: minimal Mood & Affect: depressed, anxious, sad and tearful Thought Content: suicidality and No homicidality Skin no rashes or lesions noted and no wounds MDM MDM MDM Narrative Medical decision making narrative: Differential diagnosis includes drug overdose alcohol intoxication bipolar disorder depression suicidal ideation/gesture/attempt. Psychiatric screening labs will be obtained including toxicology with acetaminophen and salicylate levels. If the patient is medically cleared we will have crisis evaluate the patient for possible placement. I will fill out a pink slip. Care of the patient will be turned over to the daytime physician for final disposition Toxicology is positive for alcohol at 93 (patient states she only had 2 beers) salicylates and acetaminophen are negative urine toxicology negative. test is negative. Patient is medically cleared for psychiatric assessment and we have asked crisis to come from the community to evaluate the patient. Crisis has completed their evaluation. Patient is not actively suicidal. She is comfortable with safety plan. She has follow-up already with her psychiatrist and has a pillowcase cutter. History & Record Review Discussion w/independent historian: Patient Additional record(s) reviewed:: Prior ED visit and Prior labs Lab Data Attestation: I reviewed the patient's lab results. Labs: Laboratory Results - last 24 hr 01/02/25 06:03 WBC 6.2 RBC 4.64 Hgb 14.5 Hct 44.0 MCV 94.8 MCH 31.3 MCHC 33.0 RDW Std Deviation 48.5 H RDW Coeff of Danis 13.9 Plt Count 310 MPV 10.0 Immature Gran % (Auto) 0.300 Neut % (Auto) 49.3 Lymph % (Auto) 43.4 H [place] % (Auto) 5.4 Eos % (Auto) 1.1 Baso % (Auto) 0.5 Absolute Neuts (auto) 3.1 Absolute Lymphs (auto) 2.71 Nucleated RBC % 0 Sodium 139 Potassium 3.6 Chloride 101 Carbon Dioxide 18.3 L Anion Gap 20 H BUN 8 Creatinine 0.68 L Estim Creat Clear Calc 120.85 Est GFR (MDRD) Non-Af 123 BUN/Creatinine Ratio 11.1 Glucose 109 H Calcium 9.7 Total Bilirubin 0.40 AST 27 ALT 16 Alkaline Phosphatase 68 Total Protein 7.5 Albumin 4.6 Globulin 2.9 Albumin/Globulin Ratio 1.6 Serum , Qual NEGATIVE Salicylates < 0.5 L Urine Opiates Screen NEGATIVE U Buprenorphine Qual NEGATIVE Ur Oxycodone Screen NEGATIVE Urine Methadone Screen NEGATIVE Urine Fentanyl Screen NEGATIVE Acetaminophen < 5.0 L Ur Barbiturates Screen NEGATIVE Ur Phencyclidine Scrn NEGATIVE Ur Amphetamines Screen NEGATIVE U Benzodiazepines Scrn NEGATIVE Urine Cocaine Screen NEGATIVE U Cannabinoids Screen NEGATIVE Ethyl Alcohol 93.0 H Discharge Plan Triage Chief Complaint: Suicidal ED Provider: Asad Rivero Dx/Rx/DC Orders Clinical Impression: Drug overdose, intentional, Bipolar disorder with depression Instructions: CONTRACT, No Harm, ED Overdose Intentional Adult Prescriptions: No Action labetalol 1 tab PO DAILY lamotrigine 100 mg tablet 100 mg PO BID Patient Comments: TAKE 1/2 (ONE-HALF) TABLET BY MOUTH AFTER BREAKFAST AND 1 TAB AT BEDTIME prazosin 1 mg capsule 1 mg PO QHS ondansetron 4 mg tablet,disintegrating 4 mg PO Q6H PRN (Reason: nausea and vomiting) Qty: 20 0RF dicyclomine 20 mg tablet 20 mg PO TID Qty: 30 0RF omeprazole 40 mg capsule,delayed release(DR/EC) See Rx Instructions .ROUTE .COMPLEX Qty: 90 1RF Dose Instruction: 40 MG ORALLY DAILY Rx Instructions: 40 MG ORALLY DAILY metformin 500 mg tablet extended release 24 hr 500 mg PO QPM Qty: 30 3RF Primary Care Provider: Chika Hugo Referrals: Counseling,Center [Group of Physicians] - As soon as possible Chika Hugo, DO [Primary Care Provider] - Activity Restrictions/Additional Instructions: If you are feeling unsafe or having thoughts of harming yourself please call crisis or return to emergency Print Language: Sinhala Disposition Disposition: Home, Self Care
[2025-01-02 06:11] LABS: Absolute Lymphocyte Count 2.71 X10^3/uL (0.83-4.51); Absolute Neutrophil Count 3.1 X10^3/uL (2.0-7.7); Basophil# 0.03 X10^3/uL; Basophil% 0.5 % (0-1); Eosinophil# 0.07 X10^3/uL; Eosinophils% 1.1 % (0-5); Hemoglobin 14.5 g/dL (12.0-15.0); Lymphocyte # 2.71 X10^3/ul (0.83-4.51); Lymphocyte % 43.4 % (19-41); Mean Corpuscular Hgb 31.3 pg (27.0-32.0); Mean Corpuscular Volume 94.8 fL (81-99); Monocyte# 0.34 X10^3/uL; Monocyte% 5.4 % (0-10); NRBC Flagged by Analyzer 0 % (0-5); Neutrophil # 3.07 X10^3/uL (2.7-7.7); Neutrophil % 49.3 % (47-70); Platelet Count 310 K/mm3 (150-450); RBC Distribution Width CV 13.9 % (11.6-14.6); RBC Distribution Width SD 48.5 fl (35.1-43.9); Red Blood Count 4.64 M/mm3 (4.2-5.4); White Blood Count 6.2 K/mm3 (4.4-11.0)
--- OUTSIDE RECORDS SUMMARY | 2025-01-02 06:19 | XMS RPT_ITS | CCD ---
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 Ishmael Vu Primary Care Provider [phone] Dr. Ishmael Vu Referring Provider [phone] Christiano GARCIA, BODY PIERCER-Selina Mc Attending Provider [phone] BALTA Hendrickson Attending Provider Unavailab kaity QUINTEROS MD, DR BRIAN Mehta Primary Care Physician Dr. Ishmael Vu Primary Care Provider [phone] Dr. Ishmael Vu Referring Provider [phone] Dr. Vincent Meza Attending Provider [phone] Dr. Ishmael Vu Attending Provider [phone] Ishmael Vu MD Primary Care Provider [phone] Dr. Ishmael uV Primary Care Provider [phone] Dr. Ishmael Vu Referring Provider [phone] Dr. Ishmael Vu Primary Care Provider [phone] Dr. Ishmael Vu Referring Provider [phone] Dr. Vincent Meza Attending Provider [phone] Aide BODY PIERCER, BODY PIERCER-C Abbey Attending Provider [phone] BALTA Hendrickson Attending Provider Unavailab Ishmael Shrestha MD Primary Care Provider [phone] Oleghe, Efewongbe B Primary Care Provider Oleghe, Efewongbe B Primary Care Provider Dr. Ishmael Vu Primary Care Provider [phone] Dr. Ishmael Vu Referring Provider [phone] Christiano BODY PIERCER, BODY PIERCER-C Alexandro Attending Provider [phone] Aide BODY PIERCER, BODY PIERCER-C Abbey Attending Provider [phone] Elmer, Dr. Campbell Attending Provider [phone] Dr. Ishmael Vu Attending Provider [phone] OLEGHE, EFEWONGBE B Primary Care Unavailable YAHAIRA RAMOS Attending Unavailable OLEGHE, EFEWONGBE B Primary Care Unavailable BENNY RYAN Attending Unavailabl e MACKENZIE, TAZ S Referring Unavailable OLEGHE, EFEWONGBE B Primary Care Unavailable AZZAM, RAED H Admitting Unavailable AZZAM, RAED H Attending Unavailable MACKENZIE, TAZ S Referring Unavailable OLEGHE, EFEWONGBE B Primary Care Unavailable MACKENZIE, TAZ S Referring Unavailable OLEGHE, EFEWONGBE B Primary Care Unavailable OLEGHE, EFEWONGBE B Primary Care Unavailable NITZ, EMMANUEL Admitting Unavailable NITZ, EMMANUEL Attending Unavailable NITZ, EMMANUEL Referring Unavailable Oleghe, Efewongbe B Primary Care Provider BALTA Sanchez Attending Provider Dr. Ishmael Vu Primary Care Provider [phone] Dr. Ishmael Vu Referring Provider [phone] OLEGHE, EFEWONGBE B Primary Care Unavailable ARETHA DENIS Attending Unavailable OLEGHE, EFEWONGBE B Primary Care Unavailable TAZ SKY Referring Unavailable OLEGHE, EFEWONGBE B Primary Care Unavailable TAZ SKY Attending Unavailable OLEGHE, EFEWONGBE B Primary Care Unavailable TAZ MACKENZIE Referring Unavailable OLEGHE, EFEWONGBE B Primary Care Unavailable TAZ MACKENZIE Attending Unavailable MILLY LOCKWOOD Referring Unavailable OLEGHE, EFEWONGBE B Primary Care Unavailable OLEGHE, EFEWONGBE B Primary Care Unavailable TAZ SKY Attending Unavailable TAZ SKY Referring Unavailable OLEGHE, EFEWONGBE B Primary Care Unavailable ARIEL ROMO Attending Unavailable Dr. Ishmael Vu Primary Care Provider [phone] Dr. Ishmael Vu Attending Provider [phone] Dr. Ishmael Vu Referring Provider [phone] Aide BODY PIERCER, BODY PIERCER-C Abbey Attending Provider Olegisella, Efewongbe B Primary Care Provider Mirella Efewongbe B Primary Care Provider Dr. Ishmael Vu Primary Care Provider [phone] Dr. Ishmael Vu Attending Provider [phone] Dr. Ishmael Vu Referring Provider [phone] Aide BODY PIERCER, BODY PIERCER-C Abbey Attending Provider [phone] TONI VALLEJO Attending Unavailable OLEGHE, EFEWONGBE Primary Care Unavailable OLEGHE, EFEWONGBE Primary Care Unavailable TONI VALLEJO Attending Unavailable OLEGHE, EFEWONGBE Primary Care Unavailable TONI VALLEJO Attending Unavailable TONI VALLEJO Referring Unavailable SKEGGS, FIDE Attending Unavailable SKEGGS, FIDE Referring Unavailable OLEGHE, EFEWONGBE Primary Care Unavailable OLEGHE, EFEWONGBE Primary Care Unavailable SKEGGS, FIDE Referring Unavailable OLEGHE, EFEWONGBE Primary Care Unavailable SKEGGS FIDE Attending Unavailable Oleghe, Efewongbe B Primary Care Provider Aki Kenyon MD Attending Provider Aki Kenyon MD Emergency Provider Care Physician, No Primary Primary Care Provider Unavailable Sherman WRIGHT, Dr. Hilliard Attending Provider [phone] Sherman WRIGHT, Dr. Hilliard Emergency Provider Oanh DO, Chika Primary Care Provider Oanh DO, Chika Attending Provider Oanh DO, Chika Referring Provider Aide BODY PIERCER-CAbbey Attending Provider Sammi FOWLER, Dr. Sims Attending Provider Sammi FOWLER, Dr. Sims Referring Provider Sammi FOWLER, Dr. Sims Emergency Provider [phone] Yamileth WRIGHT, Dr. Muñoz Emergency Provider Kevin Mullins Attending Unavailabl e Oleghe, Efewongbe Primary Care Unavailable Oanh VSC, Chika Primary Care Unavailable Oanh VSC, Chika Attending Unavailable Oleghe, Efewongbe Primary Care Unavailable Oleghe, Efewongbe Referring Unavailable Chemo Emery Attending Unavailable Oanh VSC, Chika Primary Care Unavailable Oanh VSC, Chika Referring Unavailable Aide, Abbey Attending Unavailable Oanh VSC, Chika Referring Unavailable Aide, Abbey Attending Unavailable Oanh VSC, Chika Primary Care Unavailable Oleghe, Efewongbe Referring Unavailable [place], Abbey Attending Unavailable Oleghe, Efewongbe Primary Care Unavailable Oanh VSC, Chika Primary Care Unavailable Oanh VSC, Chika Referring Unavailable [place], Abbey Attending Unavailable Oleghe, Efewongbe Referring Unavailable Bibiana Forde Attending Unavailable Oleghe, Efewongbe Primary Care Unavailable Oleghe, Efewongbe Referring Unavailable Aide, Abbey Attending Unavailable Oleghe, Efewongbe Primary Care Unavailable Oleghe, Efewongbe Referring Unavailable Oleghe, Efewongbe Attending Unavailable Oleghe, Efewongbe Primary Care Unavailable Levi Chapa Referring Unavailable Chapa, Levi Attending Unavailable Oanh VSC, Chika Primary Care Unavailable Oanh VS, Chika Primary Care Unavailable Toni Carson Attending Unavailable Oleghe, Efewongbe Primary Care Unavailable Gregory Neil Attending Unavailable Care Physician, No Primary Primary Care Unava ilable Aki Kenyon Attending Unavailable Care Physician, No Primary Primary Care Unava ilable Babak Whitaker [facility] Unavailable Abbey Noble Referring Unavailable Abbey Noble Attending Unavailable Oleghe, Efewongbe Referring Unavailable Oleghe, Efewongbe Attending Unavailable Oleghe, Efewongbe Primary Care Unavailable Oanh VS, Chika Primary Care Unavailable [facility]anh [facility], Chika [facility] Un[facility] Attending Unavailable Allergies Allergy Classification Reported Allergen(s) Allergy Type Date of Onset Reaction(s) Facility Acetaminophen / oxyCODONE (1 source) Acetaminophen / oxyCODONE Drug Allergy 1 [facility] Contrast Media (2 sources) Contrast media Substance Allergy 8 [facility] Opioid Agonists (5 sources) Codeine Drug Allergy 7 Hives, Itching [facility] (3 sources) Acetaminophen Drug Allergy [address] [facility] Work Phone: (19 sources) Codeine; Translations: [codeine phosphate] Drug Allergy 2 [facility] (20 sources) Contrast media; Translations: [RED DYE] Allergy to substance 8 [facility] Work Phone: (20 sources) Morphine; Translations: [morphine] Drug Allergy 8 Hives, Itching [facility] Work Phone: (20 sources) oxyCODONE; Translations: [oxycodone HCl] Drug Allergy 2 [facility] (20 sources) Iodinated Contrast Media; Translations: [Iodinated Contrast Media] Allergy to substance 2 HIVES, SHORT OF BREATH [facility] (20 sources) Codeine; Translations: [codeine] Drug Allergy 7 [facility] (20 sources) Acetaminophen / oxyCODONE; Translations: [OXYCODONE-ACETAM INOPHEN] Drug Allergy 1 Hives [facility] (20 sources) HYDROmorphone Drug Allergy [address] [facility] (13 sources) guaiFENesin / HYDROmorphone; Translations: [DILAUDID COUGH] Drug Allergy 3 Hives, Other: See Comments [facility] (1 source) [facility]) [facility] Drug Allergy 5 [facility] (1 source) Morphine Drug Allergy 5 [facility] (1 source) traMADol Drug Allergy 5 [facility] Medications Current Medications Medication Drug Class(es) Dates Sig (Normalized) Sig (Original) benoxinate hydrochloride 4 mg/ml / fluorescein sodium 2.5 mg/ml ophthalmic solution (1 source) Diagnostic Dye Start: 11-28-2022 End: 12-09-2022 fluorescein-brad xinate 0.25-0.4 % 1 Drop (FLURESS) cephalexin 500 mg oral capsule (20 sources) Cephalosporin Antibacterial Start: 09-20-2024 take 1 capsule by mouth every twelve hours Cephalexin 500 mg capsule Active 500 mg PO Q12H 10 5 September 20, 2024 1:00am Start: 08-21-2019 End: 09-13-2019 take 1 capsule by mouth three times daily Cephalexin (Keflex) 500 mg capsule Discontinued 500 mg PO THREE TIMES A DAY August 21, 2019 1:00am September 13, 2019 5:19pm diclofenac sodium 50 mg delayed release oral tablet (2 sources) Nonsteroidal Anti-inflammatory Drug Start: 03-14-2020 take 1 tablet by mouth twice daily at mealtime diclofenac (VOLTAREN) 50 MG EC tablet Indications: Lumbar pain , Pain of right sacroiliac joint Take 1 tablet by mouth 2 times daily (with meals) TO START AFTER COMPLETION OF MEDROL DOSE PACK 60 tablet 0 03/14/2020 Active Start: 04-22-2015 diclofenac pot assium 50 mg oral tablet Dose : 50 mg = 1 tab(s), Oral, TID, PRN as needed for pain Start Date: 04/22/15 Status: Ordered dicyclomine hydrochloride 20 mg oral tablet (20 sources) Anticholinergic Start: 09-20-2024 take 1 tablet by mouth three times daily Dicyclomine 20 mg tablet Active 20 mg PO THREE TIMES A DAY September 20, 2024 1:00am Start: 11-23-2022 End: 09-27-2023 take 1 tablet by mouth twice daily Dicyclomine 20 mg tablet Discontinued 0 .ROUTE .COMPLEX 60 February 07, 2023 5:38pm September 27, 2023 11:41am TAKE 1 TABLET BY MOUTH TWICE A DAY gabapentin 300 mg oral capsule (15 sources) Anti-epileptic Agent Start: 10-10-2023 End: 11-09-2023 take 1 capsule by mouth three times daily gabapentin (Neurontin) 300 MG capsule Take 1 capsule (300 mg) by mouth 3 times daily. 90 capsule 10/10/2023 Active Start: 10-06-2022 End: 10-04-2023 take 1 capsule by mouth three times daily gabapentin (Neurontin) 300 MG capsule Indications: Lumbar radiculopathy Take 1 capsule (300 mg) by mouth 3 times daily. 90 capsule 0 10/06/2022 10/04/2023 Discontinued (Med list cleanup) hydrOXYzine hydrochloride 25 mg oral tablet (1 source) Antihistamine Start: 12-30-2021 take 25 mg by mouth three times daily Hydroxyzine Hcl Active 25 MG PO THREE TIMES A DAY December 30, 2021 12:00am iv contrast (will be provided with radiology test) (2 sources) Start: 08-25-2022 End: 08-26-2022 iv contrast (will be provided with radiology test) MRI Orbits Inject, intravenously, once for 1 dose. No IV access, insert saline lock prior to the beginning of sedation, infusion, injection of imaging exam. Discontinue saline lock post exam. If Pt. has a central line or IVAD, may access for administration according to line specific nursing protocol. Once exam is complete flush line and de-access according to line specific nursing protocol in the MR contrast administration guidelines link. 1 Each 0 08/25/2022 08/26/2022 Active Start: 08-25-2022 End: 08-26-2022 iv contrast (will be provide d with radiology test) MRV Brain Inject, intravenously, once for 1 dose. No IV access, insert saline lock prior to the beginning of sedation, infusion, injection of imaging exam. Discontinue saline lock post exam. If Pt. has a central line or IVAD, may access for administration according to line specific nursing protocol. Once exam is complete flush line and de-access according to line specific nursing protocol in the MR contrast administration guidelines link. 1 Each 0 08/25/2022 08/26/2022 Active Comment on above: MRI Orbits Inject, i ntravenously, once for 1 dose. No IV access, insert saline lock prior to the beginning of sedation, infusion, injection of imaging exam. Discontinue saline lock post exam. If Pt. has a central line or IVAD, may access for administration according to line specific nursing protocol. Once exam is complete flush line and de-access according to line specific nursing protocol in the MR contrast administration guidelines link. MRV Brain Inject, in travenously, once for 1 dose. No IV access, insert saline lock prior to the beginning of sedation, infusion, injection of imaging exam. Discontinue saline lock post exam. If Pt. has a central line or IVAD, may access for administration according to line specific nursing protocol. Once exam is complete flush line and de-access according to line specific nursing protocol in the MR contrast administration guidelines link. Labetalol (20 sources) beta-Adrenergic Sharon Start: 09-20-2024 labetalol Active 1 {tbl} PO DAILY September 20, 2024 1:00am Start: 04-30-2024 End: 09-06-2024 take 1 tablet by mouth once daily Labetalol 100 mg tablet Discontinued 100 mg PO DAILY April 30, 2024 12:00am September 06, 2024 4:28pm Start: 01-14-2021 End: 09-27-2023 labetalol (TRANDATE) 100 mg tablet Take 50 mg by mouth twice daily. 0 06/07/2022 Active Start: 01-14-2021 End: 09-27-2023 take 50 mg by mouth twice daily Labetalol Discontinued 50 MG PO TWICE A DAY 60 June 25, 2021 11:29am June 07, 2022 10:26am Comment on above: Take 50 mg by mouth twice daily. lamoTRIgine 100 mg oral tablet (1 source) Mood Stabilizer, Anti-epileptic Agent Start: take 1 tablet by mouth twice daily Lamotrigine 100 mg tablet Active 100 mg PO TWICE A DAY September 20, 2024 1:00am meloxicam 15 mg oral tablet (3 sources) Nonsteroidal Anti-inflammatory Drug Start: 3 End: 3 take 1 tablet by mouth once daily meloxicam (Mobic) 15 MG tablet Indications: Lumbar pain Take 1 tablet (15 mg) by mouth daily. 30 tablet 0 10/06/2022 11/05/2022 Active Start: 10-28-2021 Meloxicam Acti ve 7.5 MG PO DAILY October 28, 2021 4:13pm Take daily for 1 week then use as needed. 24 hr metFORMIN hydrochloride 500 mg extended release oral tablet (1 source) Biguanide Start: 09-06-2024 take 1 tablet by mouth once daily in the evening Metformin 500 mg tablet extended release 24 hr Active 500 mg PO EVERY EVENING September 06, 2024 1:00am omeprazole 40 mg delayed release oral capsule (20 sources) Proton Pump Inhibitor Start: 05-22-2021 End: 02-24-2024 take 1 capsule by mouth once daily Omeprazole 40 mg capsule,delayed release(DR/EC) Active 0 .ROUTE .COMPLEX February 24, 2024 3:20pm 40 MG ORALLY DAILY Start: 01-14-2021 End: 05-22-2021 take 2 capsules by mouth once daily Omeprazole 20 mg capsule,delayed release(DR/EC) Discontinued 40 mg PO DAILY January 14, 2021 12:00am May 22, 2021 8:21am Start: 01-14-2021 End: 05-22-2021 take 40 mg by mouth once daily Omeprazole Discontinued 40 MG PO DAILY January 14, 2021 12:00am May 22, 2021 8:21am Start: 09-04-2020 End: 10-30-2020 take 1 capsule by mouth once daily Omeprazole Magnesium (Acid Syrup Maker Cook (Omeprazole)) 20 mg capsule,delayed release(DR/EC) Discontinued 20 mg PO DAILY October 29, 2020 11:31am October 30, 2020 4:10pm Comment on above: Take 40 mg by mouth once daily. ondansetron 4 mg disintegrating oral tablet (20 sources) Serotonin-3 Receptor Antagonist Start: 09-20-19 take 1 tablet by mouth every six hours as needed for nausea and vomiting Ondansetron 4 mg tablet,disintegrati ng Active 4 mg PO EVERY 6 HOURS as needed for nausea and vomiting September 20, 2024 1:00am Start: 09-15-2022 End: 09-22-2022 take 1 tablet by mouth every eight hours as needed for nausea and vomiting ondansetron (Zofran) 4 MG tablet Take 1 tablet (4 mg) by mouth every 8 hours as needed for nausea or vomiting for up to 7 days. 20 tablet 0 09/15/2022 09/22/2022 Active Start: 09-14-2022 End: 09-14-2022 ondansetron (Zofran) injecti on 4 mg Start: 07-06-2021 End: 10-28-2021 take 1 tablet by mouth every eight hours as needed for nausea and vomiting Ondansetron Hcl (Zofran) 4 mg tablet Discontinued 4 mg PO Q8H as needed for nausea and vomiting July 06, 2021 1:00am October 28, 2021 3:45pm Start: 09-19-2020 End: 08-25-2022 take 1 tablet by mouth every eight hours as needed for nausea and vomiting Ondansetron 4 mg tablet,disintegrating Discontinued 4 mg PO Q8H as needed for nausea and vomiting May 25, 2021 12:00am August 05, 2021 5:37pm Start: 06-21-2017 End: 07-01-2017 take 1 tablet by mouth every eight hours as needed for nausea Ondansetron 4 MG tablet Discontinued 4 mg PO EVERY 8 HOURS NEEDED as needed for Nausea June 21, 2017 1:00am July 01, 2017 11:01am Comment on above: Take 1 tablet by angela th every 8 hours as needed for nausea/vomiting. patella support brace (19 sources) Start: 10-28-2021 patella support brace Active 0 .Route .MEDSUPPLY October 28, 2021 4:13pm Wear daily Start: 10-28-2021 End: 05-31-2022 patella support brace Discon tinued 0 .Route .MEDSUPPLY October 28, 2021 12:00am May 31, 2022 1:52pm Wear daily Start: 10-28-2021 End: 05-31-2022 patella support brace Discon tinued 0 .Route .MEDSUPPLY October 27, 2021 11:00pm May 31, 2022 12:52pm Wear daily Start: 10-28-2021 patella suppor t brace Active 0 .Route .MEDSUPPLY October 28, 2021 12:00am Wear daily phenylephrine hydrochloride 25 mg/ml ophthalmic solution (1 source) alpha-1 Adrenergic Agonist Start: 11-28-2022 End: 12-09-2022 PHENYLephrine 2.5 % 1 Drop (AK-DILATE, ELIE-SYNEPHRINE) prazosin 1 mg oral capsule (1 source) alpha-Adrenergic Sharon Start: 09-20-2024 take 1 capsule by mouth at bedtime Prazosin 1 mg capsule Active 1 mg PO AT BEDTIME September 20, 2024 1:00am proparacaine hydrochloride 5 mg/ml ophthalmic solution (1 source) Local Anesthetic Start: 11-28-2022 End: 12-09-2022 proparacaine 0.5 % 1 Drop (ALCAINE) Imitrex (1 source) Serotonin-1b and Serotonin-1d Receptor Agonist Start: 08-04-2018 Imitrex Once, PRN as needed for migraine headache Start Date: 08/04/18 Status: Ordered tropicamide 10 mg/ml ophthalmic solution (1 source) Anticholinergic Start: 11-28-2022 End: 12-09-2022 tropicamide 1 % 1 Drop (MYDRIACYL) Completed/Discontinued Medications Medication Drug Class(es) Dates Sig (Normalized) Sig (Original) acetaminophen 500 mg oral tablet (10 sources) Start: 11-24-2022 take 2 tablets by mouth every eight hours as needed acetaminophen (TYLENOL) 500 mg tablet Take 2 tablets by mouth every 8 hours as needed for pain. 60 tablet 0 11/24/2022 Active Start: 09-14-2022 End: 09-14-2022 acetaminophen (Tylenol) tabl et 1,000 mg Start: 11-10-2020 End: 11-10-2020 acetaminophen (TYLENOL) tabl et 1,000 mg Comment on above: Take 2 tablets by mo uth every 8 hours as needed for pain. Albuterol (4 sources) beta2-Adrenergic Agonist Start: 06-02-2020 End: 08-25-2022 ALBUTEROL INHALATION Start: 06-02-2020 ALBUTEROL INHA LATION Albuterol Albuterol Sulfate (Proventil Hfa) 90 mcg/actuation HFA aerosol inhaler Active 2 PUFF INHALATION EVERY 6 HOURS 8.June 02, 2020 8:46am 06-02-2020 [facility] ([id number]) 0 06/02/2020 Active Start: 06-02-2020 take 1 puff(s) by in halation every six hours Albuterol Sulfate Active 2 PUFF INHALATION EVERY 6 HOURS 8.June 02, 2020 9:46am Comment on above: Albuterol Albuterol Sulfate (Proventil Hfa) 90 mcg/actuation HFA aerosol inhaler Active 2 PUFF INHALATION EVERY 6 HOURS 8.June 02, 2020 8:46am 06-02-2020 [facility] ([id number]) ALPRAZolam 0.25 mg disintegrating oral tablet (2 sources) Benzodiazepine Start: End: ALPRAZolam (Xanax) disintegrating tablet 0.25 mg amitriptyline hydrochloride 100 mg oral tablet (20 sources) Tricyclic Antidepressant Start: take 1 tablet by mouth once daily at bedtime amitriptyline (ELAVIL) 100 mg tablet Take 1 tablet by mouth daily at bedtime. 0 08/25/2022 Active Start: 08-02-2018 End: 08-21-2019 take 1 tablet by mouth at bedtime Amitriptyline 25 mg tablet Discontinued 25 mg PO AT BEDTIME December 27, 2018 10:49am August 21, 2019 5:35pm Start: 07-11-2018 End: 10-04-2023 take 1 tablet by mouth at bedtime Amitriptyline 10 mg tablet Discontinued 10 mg PO AT BEDTIME July 11, 2018 1:00am August 03, 2018 12:56pm Comment on above: Take 10 mg by mouth daily at bedtime. Take 1 tablet by angela th daily at bedtime. brompheniramine maleate 0.4 mg/ml / dextromethorphan hydrobromide 2 mg/ml / pseudoephedrine hydrochloride 6 mg/ml oral solution (2 sources) alpha-Adrenergic Agonist, Uncompetitive H-xkzpns-O-aspartate Receptor Antagonist, Sigma-1 Agonist Start: End: take 5-10 mL by mouth every six hours as needed Brompheniramine-Pse udoeph-DM (BROMFED DM) 2-30-10 mg/5 mL syrup Take 5-10 ml po q6h prn 120 mL 0 03/02/2021 08/25/2022 Discontinued (Other) Comment on above: Take 5-10 ml po q6h prn 24 hr buPROPion hydrochloride 150 mg extended release oral tablet (20 sources) Aminoketone Start: End: take 1 tablet by mouth once daily in the morning Bupropion Hcl 150 mg tablet extended release 24 hr Discontinued 150 mg PO EVERY MORNING 90 June 14, 2019 11:41am April 28, 2020 2:37pm Start: 09-29-2017 End: 07-11-2018 take 1 tablet by mouth once daily in the morning Bupropion Hcl 300 mg tablet extended release 24 hr Discontinued 300 mg PO EVERY MORNING 60 May 30, 2018 2:31pm July 11, 2018 5:18pm Start: 08-09-2017 End: 09-29-2017 take 1 tablet by mouth every other day in the morning, then take 1 tablet by mouth once daily Bupropion Hcl 300 mg tablet extended release 24 hr Discontinued 300 mg PO EVERY MORNING 60 August 09, 2017 4:13pm September 29, 2017 3:49pm Take 1 tab every other day x 4 days then 1 tab daily subsequently. Start: 08-09-2017 End: 08-09-2017 take 1 tablet by mouth once daily in the morning Bupropion Hcl 300 mg tablet extended release 24 hr Discontinued 300 mg PO EVERY MORNING 60 August 09, 2017 1:00am August 09, 2017 4:14pm Start: 04-22-2015 take 1 tablet by angela th every hour, then take 1 tablet by mouth once daily Wellbutrin XL 300 mg/24 hours oral tablet, extended release Dose : 300 mg = 1 tab(s), Oral, Daily Start Date: 04/22/15 Status: Ordered Comment on above: Take 1 tablet by angela th once daily. busPIRone hydrochloride 7.5 mg oral tablet (20 sources) Start: 08-22-19 End: 10-04-19 take 1 tablet by mouth twice daily Buspirone 7.5 mg tablet Discontinued 7.5 mg PO TWICE A DAY August 22, 2018 1:00am October 02, 2018 11:57am Comment on above: Take 7.5 mg by mouth twice daily. calcium chloride 0.0014 meq/ml / potassium chloride 0.004 meq/ml / sodium chloride 0.103 meq/ml / sodium lactate 0.028 meq/ml injectable solution (2 sources) Start: 09-14-19 End: 09-14-19 lactated Ringer's (LR) infusion cariprazine 3 mg oral capsule (2 sources) Atypical Antipsychotic Start: 12-15-19 End: 04-30-20 take 1 capsule by mouth once daily Cariprazine 3 mg capsule Discontinued 3 mg PO DAILY December 15, 2023 12:00am April 30, 2024 1:08pm Begin after dosing pack is completed Start: 12-15-2023 End: 04-30-2024 Cariprazine 1.5 mg (1)- 3 mg (6) capsule,dose pack Discontinued 0 PO .COMPLEX December 15, 2023 12:00am April 30, 2024 1:09pm take 1 - 1.5 mg (white) capsule on Day 1, then 1 - 3 mg (blue-green) capsule daily for 6 days (days 2 - 7) PO cholecalciferol 1.25 mg oral capsule (19 sources) Vitamin D Start: 09-16-2017 End: 08-21-2019 take 1 capsule by mouth every week Cholecalciferol (Vitamin D3) 50,000 unit capsule Discontinued 80762 U PO EVERY WEEK September 16, 2017 1:00am August 21, 2019 5:35pm clonazePAM 0.5 mg oral tablet (20 sources) Benzodiazepine Start: 09-08-2018 End: 10-04-2023 clonazePAM (KlonoPIN) 0.5 MG tablet Take 1 tablet by mouth for seizures greater than 3 minutes or for 3 or more seizures in 8 hours. Not to exceed 2 doses in 24 hours. 0 09/08/2018 10/04/2023 Discontinued (Med list cleanup) Comment on above: Take 1 tablet by angela for seizures greater than 3 minutes or for 3 or more seizures in 8 hours. Not to exceed 2 doses in 24 hours. cyclobenzaprine hydrochloride 5 mg oral tablet (20 sources) Muscle Relaxant Start: 12-16-2020 End: 08-25-2022 take 1 tablet by mouth three times daily cyclobenzaprine (FLEXERIL) 5 mg tablet Take 1 tablet by mouth three times daily. 20 tablet 0 12/16/2020 08/25/2022 Discontinued (Other) Start: 07-11-2019 End: 08-21-2019 take 5-10 mg by mouth three times daily as needed for muscle spasms Cyclobenzaprine 10 mg tablet Discontinued 5 - 10 mg PO THREE TIMES A DAY as needed for muscle spasm July 11, 2019 1:00am August 21, 2019 5:35pm Start: 06-14-2019 End: 06-21-2019 take 1 tablet by mouth twice daily as needed for muscle spasms Cyclobenzaprine 10 mg tablet Discontinued 10 mg PO TWICE A DAY as needed for muscle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 Episodic Residual codes; unclassified (1 source) Auditory hallucinations; Translations: [Auditory hallucinations] 05-08-2024 Episodic Spondylosis; intervertebral disc disorders; other back problems (20 sources) Other intervertebral disc displacement, lumbar region; Translations: [Herniation of intervertebral disc of lumbar spine] Chronic Spondylosis; intervertebral disc disorders; other back problems (20 sources) Pain in right sacroiliac joint; Translations: [Sacrococcygeal disorders, not elsewhere classified] Onset: 0 03-18-2020 Episodic Sprains and strains (19 sources) Low back strain; Translations: [Strain of muscle, fascia and tendon of lower back, initial encounter] 01-10-2015 Episodic Syncope (1 source) Near syncope; Translations: [Syncope and collapse] Episodic Unclassified (1 source) No current problems or disability 06-22-2017 Unclassified (1 source) Low back pain, unspecified; Translations: [Low back pain, unspecified] Onset: 2 Urinary tract infections (2 sources) Urinary tract infectious disease; Translations: [Urinary tract infection, site not specified] 09-29-2024 Episodic Past or Other Problems Problem Classification Problem Date Documented Date Episodic/Chronic Abdominal pain (20 sources) Right flank pain; Translations: [Unspecified abdominal pain] Onset: 08-20-2024 04-22-2015 Episodic Administrative/social admission (3 sources) Encounter for pre-employment examination; Translations: [Health examination of defined subpopulations] Onset: 02-01-2024 03-11-2023 Episodic Blindness and vision defects (2 sources) Localized visual field defect; Translations: [Other localized visual field defect, bilateral] Onset: 11-29-2022 Episodic Other aftercare (2 sources) Surgical follow-up; Translations: [Encounter for follow-up examination after completed treatment for conditions other than malignant neoplasm] Episodic Other connective tissue disease (5 sources) Weakness of right leg; Translations: [Other symptoms and signs involving the musculoskeletal system] Episodic Other eye disorders (1 source) Ocular pain, bilateral; Translations: [Eye pain, bilateral] Onset: 11-24-2022 Episodic Other injuries and conditions due to external causes (12 sources) At risk for falls ; Translations: [History of falling] Onset: 09-05-2018 09-06-2018 Episodic Other lower respiratory disease (1 source) Shortness of breath; Translations: [Shortness of breath] Onset: 05-16-2024 Episodic Residual codes; unclassified (1 source) Personal history of other specified conditions; Translations: [History of seizure] Onset: 11-24-2022 Episodic Residual codes; unclassified (1 source) H/O Spinal surgery; Translations: [Other specified postprocedural states] Episodic Suicide and intentional self-inflicted injury (2 sources) Suicidal thoughts; Translations: [Suicidal ideations] Onset: 05-22-2024 05-08-2024 Episodic Unclassified (1 source) Low back pain, unspecified; Translations: [Low back pain, unspecified] Onset: 02-23-2023 Results Test Name Value Interpretation Reference Range Facility PAP IG HPV APTIMA 16/18,45on 11-26-2024 ADEQ Comment Normal . [facility] Comment on above: Order Comment: Speci men Comment: [id number] Comment: No. of containers..01 ThinPrep Vial Result Comment: Sati sfactory for evaluation. No endocervical component is identified. Performed By: #### M 100.019, L501.9100, L700.6800, L505.5000, L100.0100, L500.2500 #### [facility] [address] [place], [place], [id number] COMM . Normal . [facility] Comment on above: Order Comment: Speci men Comment: [id number] Comment: No. of containers..01 ThinPrep Vial Performed By: #### M 100.019, L501.9100, L700.6800, L505.5000, L100.0100, L500.2500 #### [facility] [address] [place], [place], [id number] COMMENT Comment Normal . [facility] Comment on above: Order Comment: Pily barnhart Comment: [id number] Comment: No. of containers..01 ThinPrep Vial Result Comment: This liquid based ThinPrep(R) pap test was screened with the use of an image guided system. Performed By: #### M 100.019, L501.9100, L700.6800, L505.5000, L100.0100, L500.2500 #### [facility] [address] [place], [place], [id number] DIAG Comment Normal . [facility] Comment on above: Order Comment: Magalii men Comment: [id number] Comment: No. of containers..01 ThinPrep Vial Result Comment: NEGA TIVE FOR INTRAEPITHELIAL LESION OR MALIGNANCY. FUNGAL ORGANISMS MORPHOLOGICALLY CONSISTENT WITH EVONNE SPECIES ARE PRESENT. Performed By: #### M 100.019, L501.9100, L700.6800, L505.5000, L100.0100, L500.2500 #### [facility] [address] [place], [place], [id number] (684) HPV APTIMA, HR Negative Normal Negative [facility] Comment on above: Order Comment: Speci men Comment: [id number] Comment: No. of containers..01 ThinPrep Vial Result Comment: This nucleic acid amplification test detects fourteen high- risk HPV types (16,18,31,33,35,39,45,51,52,56,58,59,66,68) without differentiation. Performed By: #### M 100.019, L501.9100, L700.6800, L505.5000, L100.0100, L500.2500 #### [facility] [address] [place], [place], [id number] (081) HPV Jaclyn Rfx Comment Normal . [facility] Comment on above: Order Comment: Speci men Comment: [id number] Comment: No. of containers..01 ThinPrep Vial Result Comment: Crit eria not met, HPV Genotype not performed. Performed at: - [facility] [id number] Ground Products Director: Reema Enamorado MD, Phone: [phone] Performed at: = - [facility] [id number] Ground [employer] Director: Reema Enamorado MD, Phone: [phone] Performed By: #### M 100.019, L501.9100, L700.6800, L505.5000, L100.0100, L500.2500 #### [facility] [address] [place], [place], [phone] (912) PAPSMR Comment Normal . [facility] Comment on above: Order Comment: Speci men Comment: [id number] Comment: No. of containers..01 ThinPrep Vial Result Comment: The Pap smear is a screening test designed to aid in the detection of premalignant and malignant conditions of the uterine cervix. It is not a diagnostic procedure and should not be used as the sole means of detecting cervical cancer. Both false-positive and false-negative reports do occur. Performed By: #### M 100.019, L501.9100, L700.6800, L505.5000, L100.0100, L500.2500 #### [facility] [address] [place], [place], [address] PERFORM Comment Normal . [facility] Comment on above: Order Comment: Speci men Comment: [id number] Comment: No. of containers..01 ThinPrep Vial Result Comment: Kareem Barrientos, Subassembly Assembler (ASCP) Performed By: #### M 100.019, L501.9100, L700.6800, L505.5000, L100.0100, L500.2500 #### [facility] [address] 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: 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: No Is patient in pain?: No Allergies Iodinated Contrast Media Allergy (Intermediate, Verified 11/21/24 11:14) HIVES, SHORT OF BREATH tramadol Allergy (Intermediate, Verified 11/21/24 11:14) itching morphine Allergy (Verified 11/21/24 11:14) Itching oxycodone HCl (From Percocet) Allergy (Verified 11/21/24 11:14) Hives red dye Allergy (Verified 11/21/24 11:14) Hives hydromorphone (From Dilaudid) Adverse Reaction (Verified 11/21/24 11:14) Itching Medications ???Medication ???Instructions ???Recorded ???Confirmed ???Type omeprazole 40 mg capsule,delayed See Rx Instructions .Route 4 11/21/24 Rx release .COMPLEX #90 caps metformin 500 mg tablet,extended 500 mg PO QPM #30 tabs 09/06/24 Rx release 24 hr dicyclomine 20 mg tablet 20 mg PO TID #30 tabs 09/20/24 Rx labetalol 1 tab PO DAILY 09/20/24 11/21/24 H istory lamotrigine 100 mg tablet 100 mg PO BID 09/20/24 11/21/24 Hi story ondansetron 4 mg disintegrating 4 mg PO Q6H PRN nausea and 5 11/21/24 Rx tablet vomiting #20 tabs prazosin 1 mg capsule 1 mg PO QHS 09/20/24 11/21/24 Hist ory medroxyprogesterone 10 mg tablet 10 mg PO QDAY 10 days #10 tabs 11/21/24 Rx Is last menstrual period known: Yes Last Menstrual Period: 10/05/24 Post menopausal: No Patient : No : No PFSH Medical History History of gestational hypertension Disability examination Change in bowel habit GERD (gastroesophageal reflux disease) Gastroenteritis Irritable bowel syndrome with diarrhea Anxiety and depression Seizures Acute exacerbation of chronic low back pain Insomnia Epilepsy HTN (hypertension) Headache Back problem Anxiety Abdominal pain Surgical History History of laminectomy H/O laparoscopy Family History Mother Endometriosis Depression with anxiety Grandfather Diabetes Aunt Diabetes Grandfather Cancer unknown CA, passed of Unknown Hypertension High cholesterol Father Depression with anxiety Bipolar 1 disorder Social History Smoking Status: Current every day smoker tobacco type: cigarettes and e-cigarettes Electronic Cigarette Use: with nicotine alcohol intake: never substance use type: does not use caffeine: Yes what type of physical activity do you participate in: none seatbelt use: always do you feel safe at home: Yes additional social history: Single-[facility] History 0 Elective abortions Hx Para Spontaneous abortions Hx # Term Pregnancies Ectopic pregnancies Hx # Pregnancies Multiple births # of living children HPI Encounter for routine gynecological examination Details: PAMELA ALEGRIA is a 24 year old who presents for annual exam. Menses still irregular every 4-6 weeks. did not do semen analysis. He no longer has insurance. She has failed letrozole with another provider. Last PAP: 2021 History of abnormal PAP: no Last mammogram: age 33 Other preventative health care screenings: Oanh Female Reproductive History Last Menstrual Period: 10/05/24 Questions: metorrhagia: No, sexually active: Yes, dyspareunia: No and PCB: No ROS Const Constitutional: Denies fatigue, weight gain or weight loss Cardio Card: Denies chest pain Resp Resp: Denies cough or dyspnea on exertion GI GI: Denies abdominal pain, bloating, change in stool character, constipation or vomiting : Reports as per HPI; Denies difficulty voiding, pelvic pain, urinary frequency, urinary incontinence, urinary urgency, vaginal discharge or vaginal pruritus Exam Const General: cooperative, healthy appearing, no acute distress and well developed Nutritional Appearance: obese Orientation: alert, oriented to person and oriented to place HENMT Head: normal to inspection Neck Neck: normal visual inspection Thyroid: thyroid normal Lymphatic: no lymphadenopathy noted Chest Breast inspection: normal inspection of the breasts and normal inspection of the (more content not included)... Normal [facility] Emergency Department Summary on 11-12-2024 Emergency Department Summary [facility] Medical Records Department [address] [place] [address] Emergency Department Summary 11/12/24 MR#: [id number] Acct: [id number] Name: PAMELA ALEGRIA Rep #: [id number] : 2000 24 From: Toni Carson MD PCP: Chika Hugo DO Status:DEP ER Location: ED HPI History of Present Illness Chief Complaint: Back Informant: patient Narrative Narrative: 24-year-old female with chronic low back issues states in the last few days the pain has been worsening and now she is having some pain going down her right leg to her foot. She denies any weakness in the leg. No bowel or bladder dysfunction. No saddle anesthesia. She denies any recent injuries. She cannot remember any overuse or repetitive bending over that could have made this worse but it has flared up in the past. She states she has had an MRI in the past that showed disc disease, stating I have disks that are out. She had a laminectomy in the past but the MRI was obtained since then. No recent surgeries in the past couple months. No abdominal pain or dysuria. Back pain is low lumbar, worse into the right buttock. Prior similar symptoms: Yes and With Prior Back Pain [facility] Medical History History of gestational hypertension Disability examination Change in bowel habit GERD (gastroesophageal reflux disease) Gastroenteritis Irritable bowel syndrome with diarrhea Anxiety and depression Seizures Acute exacerbation of chronic low back pain Insomnia Epilepsy HTN (hypertension) Headache Back problem Anxiety Abdominal pain Home Medications ???Medication ???Instructions ???Recorded ???Last Taken ???Type omeprazole 40 mg capsule,delayed See Rx Instructions .Route 4 Unknown Rx release .COMPLEX #90 caps metformin 500 mg tablet,extended 500 mg PO QPM #30 tabs 09/06/24 Un known Rx release 24 hr cephalexin 500 mg capsule 500 mg PO Q12H 5 days #10 caps Unknown Rx dicyclomine 20 mg tablet 20 mg PO TID #30 tabs 09/20/24 Unk nown Rx labetalol 1 tab PO DAILY 09/20/24 Unknown Hi story lamotrigine 100 mg tablet 100 mg PO BID 09/20/24 Unknown His tory ondansetron 4 mg disintegrating 4 mg PO Q6H PRN nausea and 5 Unknown Rx tablet vomiting #20 tabs prazosin 1 mg capsule 1 mg PO QHS 09/20/24 Unknown Histo ry Allergy/AdvReac Type Severity Reaction Status Date / Time Iodinated Contrast Media Allergy Intermediate HIVES, Verified 11/12/24 01:03 SHORT OF BREATH tramadol Allergy Intermediate itching Verified 11/12/24 01:03 morphine Allergy Itching Verified 11/12/24 01:03 oxycodone HCl (From Percocet) Allergy Hives Verified 11/12/24 01:03 red dye Allergy Hives Verified 09/20/24 20:53 hydromorphone (From Dilaudid) AdvReac Itching Verified 11/12/24 01:03 Family History Mother Endometriosis Depression with anxiety Grandfather Diabetes Aunt Diabetes Grandfather Cancer unknown CA, passed of Unknown Hypertension High cholesterol Father Depression with anxiety Bipolar 1 disorder Surgical History History of laminectomy H/O laparoscopy Social History Smoking Status: Current every day smoker tobacco type: cigarettes and e-cigarettes Electronic Cigarette Use: with nicotine alcohol intake: never substance use type: does not use caffeine: Yes what type of physical activity do you participate in: none seatbelt use: always do you feel safe at home: Yes additional social history: [facility] ROS ROS ED Constitutional Constitutional ED: Denies chills or fever(s) Gastrointestinal Gastrointestinal: Denies abdominal pain, constipation, fecal incontinence, nausea or vomiting Genitourinary Genitourinary ED: Reports other Details: no urinary retention ; Denies abdominal discomfort or urinary incontinence Musculoskeletal Musculoskeletal: Reports as per HPI and back pain; Denies neck pain Integumentary Denies rash or wounds Neurologic Neurologic: Denies headache(s), paresthesias or weakness EXAM Physical Exam Const Vital Signs: 11/12/24 00:58 Temperature 98.2 F Temperature Source Oral Pulse Rate 89 Respiratory Rate 18 Blood Pressure 133/85 H Blood Pressure Mean 101 Pulse Ox 100 Oxygen Delivery Method Room Air Positive well nourished and well developed General Appearance ED: well developed and NAD HEENT Negative for trauma or tenderness Eyes PERRL and EOMs intact bilaterally Neck full ROM and supple GI normal to inspection, nondistended, normoactive bowel sounds, soft to palpation and no (more content not included)... Normal [facility] Urine Cultureon 09-22-2024 [facility] Presumptive E. coli [place] Count >100,000 Presumptive E. coli: REACTION Ampicillin Islt DAJA <=2 Ampicillin+Sulbac Islt DAJA <=2 S Cefepime Islt DAJA <=0.12 S cefTRIAXone Islt DAJA <=0.25 S Ciprofloxacin Islt DAJA 0.5 I B-Lactamase Extended Susc Islt NEG Gentamicin Islt DAJA <=1 S levoFLOXacin Islt DAJA 1 I Meropenem Islt DAJA <=0.25 S Nitrofurantoin Islt DAJA <=16 S Pip+Tazo Islt DAJA <=4 S TMP SMX Islt DAJA <=[address] [facility] Comment on above: Performed By: #### M 100.019, L501.9100, L700.6800, L505.5000, L100.0100, L500.2500 #### [facility] [address] [place], [address] CBC W/Diff, Automatedon 08-26 Absolute Lymph 2.70 X10 3/uL Normal 0.83-4.51 [facility] Comment on above: Performed By: #### M 100.019, L501.9100, L700.6800, L505.5000, L100.0100, L500.2500 #### [facility] [address] [place], [address] Absolute Neut 6.2 X10 3/uL Normal 2.0-7.7 [facility] Comment on above: Performed By: #### M 100.019, L501.9100, L700.6800, L505.5000, L100.0100, L500.2500 #### [facility] [address] [place], [address] Basophils/100 WBC (Bld) 0.3 % Normal 0-1 [facility] Comment on above: Performed By: #### M 100.019, L501.9100, L700.6800, L505.5000, L100.0100, L500.2500 #### [facility] [address] [place], [address] Eosinophils/100 WBC (Bld) 0.2 % Normal 0-5 [facility] Comment on above: Performed By: #### M 100.019, L501.9100, L700.6800, L505.5000, L100.0100, L500.2500 #### [facility] [address] [place], [address] Erythrocyte distribution width (RBC) [Ratio] 14.1 % Normal 11.6-14.6 [facility] Comment on above: Performed By: #### M 100.019, L501.9100, L700.6800, L505.5000, L100.0100, L500.2500 #### [facility] [address] [facility] [place], [address] Hematocrit (Bld) [Volume fraction] 39.5 % Normal 37-47 [facility] Comment on above: Performed By: #### M 100.019, L501.9100, L700.6800, L505.5000, L100.0100, L500.2500 #### [facility] [address] [facility] [place], [address] Hemoglobin (Bld) [Mass/Vol] 13.3 g/dL Normal 12.0-15.0 [facility] Comment on above: Performed By: #### M 100.019, L501.9100, L700.6800, L505.5000, L100.0100, L500.2500 #### [facility] [address] [facility] [place], [address] IG% 0.200 Normal 0.0-0.9 [facility] Comment on above: Result Comment: IG% - Immature Granulocytes (promyelocytes, myelocytes and metamyelocytes) > 1% indicates that a LEFT SHIFT is Present. Performed By: #### M 100.019, L501.9100, L700.6800, L505.5000, L100.0100, L500.2500 #### [facility] [address] [place], [address] Lymphocytes/100 WBC (Bld) 28.1 % Normal 19-41 [facility] Comment on above: Performed By: #### M 100.019, L501.9100, L700.6800, L505.5000, L100.0100, L500.2500 #### [facility] [address] [place], [address] MCH (RBC) [Entitic mass] 30.4 pg Normal 27.0-32.0 [facility] Comment on above: Performed By: #### M 100.019, L501.9100, L700.6800, L505.5000, L100.0100, L500.2500 #### [facility] [address] [place], [address] MCHC (RBC) [Mass/Vol] 33.7 g/dL Normal 32-36 [facility] Comment on above: Performed By: #### M 100.019, L501.9100, L700.6800, L505.5000, L100.0100, L500.2500 #### [facility] [address] [place], [address] MCV (RBC) [Entitic vol] 90.2 fL Normal 81-99 [facility] Comment on above: Performed By: #### M 100.019, L501.9100, L700.6800, L505.5000, L100.0100, L500.2500 #### [facility] [address] [place], [address] Monocytes/100 WBC (Bld) 7.1 % Normal 0-10 [facility] Comment on above: Performed By: #### M 100.019, L501.9100, L700.6800, L505.5000, L100.0100, L500.2500 #### [facility] [address] [place], [address] Neutrophils/100 WBC (Bld) 64.1 % Normal 47-70 [facility] Comment on above: Performed By: #### M 100.019, L501.9100, L700.6800, L505.5000, L100.0100, L500.2500 #### [facility] [address] [place], [address] Nucleated RBC (Bld) [#/Vol] 0 10*3/uL Normal 0-5 [facility] Comment on above: Performed By: #### M 100.019, L501.9100, L700.6800, L505.5000, L100.0100, L500.2500 #### [facility] [address] [place], [address] Platelet mean volume (Bld) [Entitic vol] 10.2 fL Normal 6.2-12.0 [facility] Comment on above: Performed By: #### M 100.019, L501.9100, L700.6800, L505.5000, L100.0100, L500.2500 #### [facility] [address] [place], [address] Platelets (Bld) [#/Vol] 298 10*3/uL Normal 150-450 [facility] Comment on above: Performed By: #### M 100.019, L501.9100, L700.6800, L505.5000, L100.0100, L500.2500 #### [facility] [address] [place], [address] RBC (Bld) [#/Vol] 4.38 10*6/uL Normal 4.2-5.4 [facility] Comment on above: Performed By: #### M 100.019, L501.9100, L700.6800, L505.5000, L100.0100, L500.2500 #### [facility] [address] [place], [address] RDW SD 46.5 fl High 35.1-43.9 [facility] Comment on above: Performed By: #### M 100.019, L501.9100, L700.6800, L505.5000, L100.0100, L500.2500 #### [facility] [address] [place], [address] WBC (Bld) [#/Vol] 9.6 10*3/uL Normal 4.4-11.0 [facility] Comment on above: Performed By: #### M 100.019, L501.9100, L700.6800, L505.5000, L100.0100, L500.2500 #### [facility] [address] [place], [address] Comprehensive Metabolic Prof [facility] 09-21-2024 Albumin [Mass/Vol] 4.5 g/dL Normal 3.5-5.0 [facility] Comment on above: Performed By: #### M 100.019, L501.9100, L700.6800, L505.5000, L100.0100, L500.2500 #### [facility] [address] [place], [address] Albumin/Globulin [Mass ratio] 1.4 {ratio} Normal 0.9-2.4 [facility] Comment on above: Performed By: #### M 100.019, L501.9100, L700.6800, L505.5000, L100.0100, L500.2500 #### [facility] [address] [place], [address] ALK PHOS 65 U/L Normal 35-104 [facility] Comment on above: Performed By: #### M 100.019, L501.9100, L700.6800, L505.5000, L100.0100, L500.2500 #### [facility] [address] [place], [address] ALT [Catalytic activity/Vol] 31 U/L Normal <=34 [facility] Comment on above: Performed By: #### M 100.019, L501.9100, L700.6800, L505.5000, L100.0100, L500.2500 #### [facility] [address] [place], [address] Anion gap [Moles/Vol] 15 mmol/L Normal 5-15 [facility] Comment on above: Performed By: #### M 100.019, L501.9100, L700.6800, L505.5000, L100.0100, L500.2500 #### [facility] [address] [place], [address] AST [Catalytic activity/Vol] 27 U/L Normal <=31 [facility] Comment on above: Performed By: #### M 100.019, L501.9100, L700.6800, L505.5000, L100.0100, L500.2500 #### [facility] [address] [place], [address] Bilirubin [Mass/Vol] 0.40 mg/dL Normal 0.00-1.30 [facility] [facility] Comment on above: Performed By: #### M 100.019, L501.9100, L700.6800, L505.5000, L100.0100, L500.2500 #### [facility] [address] [place], [address] BUN/CRE 16.3 RATIO Normal 10-20 [facility] Comment on above: Performed By: #### M 100.019, L501.9100, L700.6800, L505.5000, L100.0100, L500.2500 #### [facility] [address] [place], [address] Calcium [Mass/Vol] 9.8 mg/dL Normal 7.6-11.0 [facility] Comment on above: Performed By: #### M 100.019, L501.9100, L700.6800, L505.5000, L100.0100, L500.2500 #### [facility] [address] [place], [address] Chloride [Moles/Vol] 101 mmol/L Normal 96-108 [facility] Comment on above: Performed By: #### M 100.019, L501.9100, L700.6800, L505.5000, L100.0100, L500.2500 #### [facility] [address] [place], [address] CO2 [Moles/Vol] 22.2 mmol/L Normal 22.0-29.0 [facility] Comment on above: Performed By: #### M 100.019, L501.9100, L700.6800, L505.5000, L100.0100, L500.2500 #### [facility] [address] [place], [address] Creatinine [Mass/Vol] 0.74 mg/dL Normal 0.70-1.20 [facility] Comment on above: Performed By: #### M 100.019, L501.9100, L700.6800, L505.5000, L100.0100, L500.2500 #### [facility] [address] [place], [address] ECRCL 120.77 ml/min Normal [facility] Comment on above: Performed By: #### M 100.019, L501.9100, L700.6800, L505.5000, L100.0100, L500.2500 #### [facility] [address] [place], [address] GFR/1.73 sq M.predicted among non-blacks MDRD (S/P/Bld) [Vol rate/Area] 115 mL/min/{1.73_m2} Normal >60 [facility] Comment on above: Result Comment: mL/m in/1.73m2 CKD-EPI Creatinine Equation (2020) Performed By: #### M 100.019, L501.9100, L700.6800, L505.5000, L100.0100, L500.2500 #### [facility] [address] [place], [address] Globulin (S) [Mass/Vol] 3.2 g/dL Normal 2.2-4.2 [facility] Comment on above: Performed By: #### M 100.019, L501.9100, L700.6800, L505.5000, L100.0100, L500.2500 #### [facility] [address] [place], [address] Glucose [Mass/Vol] 87 mg/dL Normal 70-99 [facility] Comment on above: Performed By: #### M 100.019, L501.9100, L700.6800, L505.5000, L100.0100, L500.2500 #### [facility] [address] [place], [address] Potassium [Moles/Vol] 3.5 mmol/L Normal 3.3-5.1 [facility] Comment on above: Result Comment: Hemo lysis present, Results??could be affected. ?? Performed By: #### M 100.019, L501.9100, L700.6800, L505.5000, L100.0100, L500.2500 #### [facility] [address] [place], [address] Sodium [Moles/Vol] 138 mmol/L Normal 133-145 [facility] Comment on above: Performed By: #### M 100.019, L501.9100, L700.6800, L505.5000, L100.0100, L500.2500 #### [facility] [address] [place], [address] T PROT 7.7 g/dL Normal 5.9-8.4 [facility] Comment on above: Performed By: #### M 100.019, L501.9100, L700.6800, L505.5000, L100.0100, L500.2500 #### [facility] [address] [place], [address] Urea nitrogen [Mass/Vol] 12 mg/dL Normal 4-19 [facility] Comment on above: Performed By: #### M 100.019, L501.9100, L700.6800, L505.5000, L100.0100, L500.2500 #### [facility] [address] [place], [address] Lipaseon 09-21-2024 Lipase [Catalytic activity/Vol] 14 U/L Normal 13-75 [facility] Comment on above: Result Comment: Ayush dewitt note: LIPASE revised reference range effective 22. New Lipase methodology. Expected to produce lower values than the previous assay method. NEW Reference Range: 13 - 75 U/L Performed By: #### M 100.019, L501.9100, L700.6800, L505.5000, L100.0100, L500.2500 #### [facility] [address] [place], [address] Abdomen/Pelvis without Conto n 09-20-2024 Abdomen/Pelvis without Cont [facility] [address] [place] [address] Abdomen/Pelvis without Cont MR#: [id number] Acct: [id number] Name: PAMELA ALEGRIA Rep #: [id number] : 2000 F 24 From: Cas Lopez MD PCP: Chika Hugo DO Status: REG ER Study: Abdomen/Pelvis without Cont Date of Exam: 08/26 02/15 Exam# [id number] Ordering Dr: Levi Chapa DO PROCEDURE: ABDOMEN/PELVIS WITHOUT CONT REASON FOR EXAM: Lower abdominal pain TECHNIQUE: Abdomen and pelvis CT without intravenous contrast. Coronal and sagittal reformatted images COMPARISON: 07/28/2024 FINDINGS: Noncontrast technique limits evaluation of the abdominal and pelvic viscera. Lung bases: Clear Liver: Unremarkable. Gallbladder: Unremarkable. Spleen: Unremarkable. Pancreas: Unremarkable. Adrenals: Unremarkable. Kidneys: Unremarkable. No renal stones, hydronephrosis or perinephric stranding. No evidence of ureteral or bladder stone. Bladder: Unremarkable. Reproductive Organs: Unremarkable. Bowel: Unremarkable. Appendix: Normal caliber without secondary signs. Lymph nodes: No suspicious lymph node enlargement. Vasculature: Major vascular structures are unremarkable on noncontrast imaging. Peritoneum / Retroperitoneum: No ascites. No free air. Bones: Unremarkable. CT/Abdomen/Pelvis without Cont IMPRESSION: No evidence of acute intra-abdominal process on noncontrast imaging. One or more dose reduction techniques were used (e.g., Automated exposure control, adjustment of the mA and/or kV according to patient size, use of iterative reconstruction technique). Reading Location: [facility] CC: Dr. 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 Absolute neutrophil countOrd ered By: Levi Chapa on 09-20-2024 Neutrophils (Bld) [#/Vol] 6.2 10*3/uL 2.0-7.7 [facility] BUN/creatinine ratioOrdered By: Levi Chapa on 09-20-2024 Urea nitrogen/Creatinine [Mass ratio] 16.3 mg/mg 10-20 [facility] Basophil percentageOrdered B y: Levi Chapa on 09-20-2024 Basophils/100 WBC (Bld) 0.3 % 0-1 [facility] Bedside Glucoseon 09-20-2024 FINGERSTICK GLU 98 mg/dL Normal 74-106 [facility] Comment on above: Result Comment: MARIAA GEMENT OF PATIENT CARE PER NURSING PROTOCOL Performed By: #### M 100.019, L501.9100, L700.6800, L505.5000, L100.0100, L500.2500 #### [facility] [address] [place], [address] Bilirubin Test strip Ql (U)O rdered By: Levi Chapa on 09-20-2024 Bilirubin Ql (U) 6 mg/dL High Negative [facility] Comment on above: COLOR OF URINE MAY A FFECT DIPSTICK RESULTS. Bilirubin, totalOrdered By: Levi Chapa on 09-20-2024 Bilirubin [Mass/Vol] 0.40 mg/dL 0.00-1.30 [facility] Carbon dioxide measurementOr dered By: Levi Chapa on 09-20-2024 CO2 [Moles/Vol] 22.2 mmol/L 22.0-29.0 [facility] Chloride measurementOrdered By: Levi Chapa on 09-20-2024 Chloride [Moles/Vol] 101 mmol/L 96-108 [facility] Emergency Department Summary on 09-20-2024 Emergency Department Summary [facility] Medical Records Department [address] [place] [address] Emergency Department Summary 09/20/24 MR#: [id number] Acct: [id number] Name: PAMELA ALEGRIA Rep #: [id number] : 2000 24 From: Levi Chapa DO PCP: Chika Hugo DO Status:REG ER Location: ED ADDENDUM by Alpesh Chappell DO on 09/21/24 at 0123 The patient was signed out to me while awaiting results of her CT scan. The CT scan of the abdomen pelvis revealed no acute findings and therefore with overall negative workup there is no need for further evaluation in the ER and patient is otherwise safe for discharge 09/21/24 0123 Cosigner Signature (if applicable): cc: Chika Hugo DO * Signed HPI History of Present Illness Chief Complaint: Complaint Narrative Narrative: Patient is a 24-year-old female with a past medical history of GERD, anxiety, depression, seizures, hypertension who presented to the emergency department the chief complaint of painful urination and not feeling well. States that she has had painful burning itch for the past few days and tried taking Azo which originally helped her symptoms and then they returned. She states that she overall feels terrible. States that her menstrual cycle was last week therefore she does not believe she is . Patient denies any recent contacts [facility] Medical History History of gestational hypertension Disability examination Change in bowel habit GERD (gastroesophageal reflux disease) Gastroenteritis Irritable bowel syndrome with diarrhea Anxiety and depression Seizures Acute exacerbation of chronic low back pain Insomnia Epilepsy HTN (hypertension) Headache Back problem Anxiety Abdominal pain Home Medications ???Medication ???Instructions ???Recorded ???Last Taken ???Type omeprazole 40 mg capsule,delayed See Rx Instructions .Route 4 Unknown Rx release .COMPLEX #90 caps metformin 500 mg tablet,extended 500 mg PO QPM #30 tabs 09/06/24 Un known Rx release 24 hr cephalexin 500 mg capsule 500 mg PO Q12H 5 days #10 caps Unknown Rx dicyclomine 20 mg tablet 20 mg PO TID #30 tabs 09/20/24 Unk nown Rx labetalol 1 tab PO DAILY 09/20/24 Unknown Hi story lamotrigine 100 mg tablet 100 mg PO BID 09/20/24 Unknown His tory ondansetron 4 mg disintegrating 4 mg PO Q6H PRN nausea and 5 Unknown Rx tablet vomiting #20 tabs prazosin 1 mg capsule 1 mg PO QHS 09/20/24 Unknown Histo ry Allergy/AdvReac Type Severity Reaction Status Date / Time Iodinated Contrast Media Allergy Intermediate HIVES, Verified 09/20/24 20:53 SHORT OF BREATH tramadol Allergy Intermediate itching Verified 09/20/24 20:53 codeine phosphate (From Allergy Hives Verified 09/20/24 20:53 Tylenol-Codeine #3) morphine Allergy Itching Verified 09/20/24 20:53 oxycodone HCl (From Percocet) Allergy Hives Verified 09/20/24 20:53 red dye Allergy Hives Verified 09/20/24 20:53 hydromorphone (From Dilaudid) AdvReac Itching Verified 09/20/24 20:53 Family History Mother Endometriosis Depression with anxiety Grandfather Diabetes Aunt Diabetes Grandfather Cancer unknown CA, passed of Unknown Hypertension High cholesterol Father Depression with anxiety Bipolar 1 disorder Surgical History History of laminectomy H/O laparoscopy Social History Smoking Status: Current every day smoker tobacco type: cigarettes and e-cigarettes Electronic Cigarette Use: with nicotine alcohol intake: never substance use type: does not use caffeine: Yes what type of physical activity do you participate in: none seatbelt use: always do you feel safe at home: Yes additional social history: [facility]-House[employer] ROS ROS ED ROS Narrative Constitutional: Complains of chills and bodyaches denies dizziness Cardiovascular: Denies chest pain or palpitations Respiratory: Denies coughing wheezing shortness of breath Abdomen: Denies abdominal pain nausea vomiting : Complains of urinary symptoms as noted above Neurological: Denies numbness, weakness, tingling Musculoskeletal: Denies back pain Skin: Denies rashes or lesions EXAM Physical Exam Narrative Exam Narrative: General: Patient lying in bed did appear to be uncomfortable not feeling well overall Head: Atraumatic, normocephalic Eyes: PERRL bilaterally, EOMI bilateral, no conjunctival injection noted Neck: Soft, supple, trach midline Cardiovascular: Regular rate and rhythm no murmurs gallops rubs noted Respiratory: Clear to auscultation bilaterally Abdomen: Sof (more content not included)... Normal [facility] Eosinophil percentageOrdered By: Levi Chapa on 09-20-2024 Eosinophils/100 WBC (Bld) 0.2 % 0-5 [facility] Epithelial cells.squamous LM Ql (Urine sed)Ordered By: Levi Chapa on 09-20-2024 Epithelial cells.squamous LM.HPF (Urine sed) [#/Area] 5 /[HPF] 5-10 [facility] Erythrocyte distribution wid th (RBC) [Ratio]Ordered By: Levi Chapa on 09-20-2024 Erythrocyte distribution width (RBC) [Entitic vol] 46.5 fL High 35.1-43.9 [facility] Erythrocyte distribution wid th ratioOrdered By: Levi Chapa on 09-20-2024 Erythrocyte distribution width (RBC) [Ratio] 14.1 % 11.6-14.6 [facility] Estimation of creatinine nakul aranceOrdered By: Levi Chapa on 09-20-2024 Estimated Creatinine Clearance Calc 120.77 ml/min [facility] GFR/1.73 sq M.predicted abbe g non-blacks MDRD (S/P/Bld) [Vol rate/Area]Ordered By: Levi Chapa on 09-20-2024 Estimated GFR (MDRD) Non-Af Amer 115 >60 [facility] Comment on above: mL/min/1.73m2 CKD-EP I Creatinine Equation (2020) Glucose Ql (U)Ordered By: Marvin Chapa on 09-20-2024 Urine Glucose (UA) Normal mg/dl Normal [facility] Glucose measurement at bedsi deOrdered By: Levi Chapa on 09-20-2024 Bedside Glucose (Misc Panel) 98 mg/dL 74-106 [facility] Comment on above: MANAGEMENT OF PATIEN T CARE PER NURSING PROTOCOL Hematocrit Auto (Bld) [Volum e fraction]Ordered By: Levi Chapa on 09-20-2024 Hematocrit (Bld) [Volume fraction] 39.5 % 37-47 [facility] Hemoglobin measurementOrdere d By: Levi Chapa on 09-20-2024 Hemoglobin (Bld) [Mass/Vol] 13.3 g/dL 12.0-15.0 [facility] Immature granulocytes/100 WB C Auto (Bld)Ordered By: Levi Chapa on 09-20-2024 Immature granulocytes/100 WBC (Bld) 0.200 % 0.0-0.9 [facility] Comment on above: IG% - Immature Granu locytes (promyelocytes, myelocytes and metamyelocytes) > 1% indicates that a LEFT SHIFT is Present. Influenza virus A and B and SARS-CoV-2 (COVID-19) and Respiratory syncytial virus RNAOrdered By: Levi Chapa on 09-20-2024 SARS-CoV-2 (COVID-19) RNA JULIETTE+probe Ql (Unsp spec) [facility] Ketones Test strip Ql (U)Ord ered By: Levi Chapa on 02-27-2025 Ketones Ql (U) 50 mg/dl High Negative [facility] - Chemistry and C hemistry - challengeOrdered By: Levi Chapa on 09-20-2024 AST [Catalytic activity/Vol] 27 U/L <32 [facility] Lipase measurementOrdered By : Levi Chapa on 09-20-2024 Lipase [Catalytic activity/Vol] 14 U/L 13-75 [facility] Comment on above: Please note:LIPASE r evised reference range effective 22. New Lipase methodology. Expected to produce lower values than the previous assay method. NEW Reference Range: 13 - 75 U/L Lymphocytes Auto (Unsp spec) [#/Vol]Ordered By: Levi Chapa on 09-20-2024 Lymphocytes (Bld) [#/Vol] 2.70 10*3/uL 0.83-4.51 [facility] Lymphocytes/100 WBC Auto (Un sp spec)Ordered By: Levi Chapa on 09-20-2024 Lymphocytes/100 WBC (Bld) 28.1 % 19-41 [facility] M100.678on 09-20-2024 M100.678 SARS-CoV-2 (COVID 19 ) Negative INFLUENZA A Negative INFLUENZA B Negative RSV PCR Negative Normal [facility] Comment on above: Performed By: #### M 100.019, L501.9100, L700.6800, L505.5000, L100.0100, L500.2500 #### [facility] [address] [place], [place], [id number] MCV (mean corpuscular volume ) determinationOrdered By: Levi Chapa on 09-20-2024 MCV (RBC) [Entitic vol] 90.2 fL 81-99 [facility] Mean corpuscular hemoglobin (MCH) determinationOrdered By: Levi Chapa on 09-20-2024 MCH (RBC) [Entitic mass] 30.4 pg 27.0-32.0 [facility] Mean corpuscular hemoglobin concentration (MCHC) determinationOrdered By: Levi Chapa on 09-20-2024 MCHC (RBC) [Mass/Vol] 33.7 g/dL 32-36 [facility] Mean platelet volume determi nationOrdered By: Levi Chapa on 09-20-2024 Platelet mean volume (Bld) [Entitic vol] 10.2 fL 6.2-12.0 [facility] Microscopic analysis of urin e for red blood cells (RBC)Ordered By: Levi Chapa on 09-20-2024 Urine RBC 10-25 SEEN /hpf 0-5 [facility] Monocyte percentageOrdered B y: Levi Chapa on 09-20-2024 Monocytes/100 WBC (Bld) 7.1 % 0-10 [facility] Mucus LM Ql (Urine sed)Order ed By: Levi Chapa on 09-20-2024 Mucus Ql (Urine sed) 0 SEEN /hpf [facility] Neutrophil percentageOrdered By: Levi Chapa on 09-20-2024 Neutrophils/100 WBC (Bld) 64.1 % 47-70 [facility] Nitrite Test strip Ql (U)Ord ered By: Levi Chapa on 09-20-2024 Nitrite Ql (U) Positive High Negative [facility] Nucleated red blood cell per centageOrdered By: Levi Chapa on 09-20-2024 Nucleated RBC/100 WBC (Bld) [Ratio] 0 % 0-5 [facility] Platelet countOrdered By: Marvin Chapa on 09-20-2024 Platelets (Bld) [#/Vol] 298 10*3/uL 150-450 [facility] ,Urineon 09-20-2024 Beta HCG ( test) Ql (U) Negative Normal [facility] Comment on above: Order Comment: COLOR OF URINE MAY AFFECT DIPSTICK RESULTS. Result Comment: Very dilute urine specimens, as indicated by a low specific gravity, may not contain major account representative levels of hCG. If is still suspected, a first morning urine specimen should be collected 48 hours later and tested. Performed By: #### M 100.019, L501.9100, L700.6800, L505.5000, L100.0100, L500.2500 #### [facility] [address] [place], [address] Protein Test strip Ql (U)Ord ered By: Levi Chapa on 09-20-2024 Protein Ql (U) 100 mg/dl High Negative [facility] RBC Auto (Bld) [#/Vol]Ordere d By: Levi Chapa on 09-20-2024 RBC (Bld) [#/Vol] 4.38 10*6/uL 4.2-5.4 [facility] Serum creatinine measurement (mass/volume)Ordered By: Levi Chapa on 09-20-2024 Creatinine [Mass/Vol] 0.74 mg/dL 0.70-1.20 [facility] Serum globulin measurementOr dered By: Levi Chapa on 09-20-2024 Globulin (S) [Mass/Vol] 3.2 g/dL 2.2-4.2 [facility] Serum glucose measurement (m ass/volume)Ordered By: Levi Chapa on 09-20-2024 Glucose [Mass/Vol] 87 mg/dL 70-99 [facility] Serum or plasma alanine blanco otransferase (ALT) measurementOrdered By: Levi Chapa on 09-20-2024 ALT [Catalytic activity/Vol] 31 U/L <35 [facility] Serum or plasma albumin fabio urement (mass/volume)Ordered By: Levi Chapa on 09-20-2024 Albumin [Mass/Vol] 4.5 g/dL 3.5-5.0 [facility] Serum or plasma albumin/glob ulin mass ratioOrdered By: Levi Chapa on 09-20-2024 Albumin/Globulin [Mass ratio] 1.4 {ratio} 0.9-2.4 [facility] Serum or plasma alkaline nael sphatase measurementOrdered By: Levi Chapa on 09-20-2024 ALP [Catalytic activity/Vol] 65 U/L 35-104 [facility] Serum or plasma anion gap de termination (moles/volume)Ordered By: Levi Chapa on 09-20-2024 Anion gap [Moles/Vol] 15 mmol/L 5-15 [facility] Serum or plasma calcium fabio urement (mass/volume)Ordered By: Levi Chapa on 09-20-2024 Calcium [Mass/Vol] 9.8 mg/dL 7.6-11.0 [facility] Serum or plasma potassium me asurementOrdered By: Levi Chapa on 09-20-2024 Potassium [Moles/Vol] 3.5 mmol/L 3.3-5.1 [facility] Comment on above: Hemolysis present, R esults could be affected. Serum or plasma sodium measu rement (moles/volume)Ordered By: Leviyaneth Chapa on 09-20-2024 Sodium [Moles/Vol] 138 mmol/L 133-145 [facility] Serum or plasma urea nitroge n measurement (mass/volume)Ordered By: Levi Chapa on 09-20-2024 Urea nitrogen [Mass/Vol] 12 mg/dL 4-19 [facility] Total proteinOrdered By: [facility] yaneth Chapa on 09-20-2024 Protein [Mass/Vol] 7.7 g/dL 5.9-8.4 [facility] Urinalysis, Completeon 09-20 BACTERIA 1+ /hpf Normal None Seen [facility] Comment on above: Order Comment: COLOR OF URINE MAY AFFECT DIPSTICK RESULTS.CLEAN CATCH Performed By: #### M 100.019, L501.9100, L700.6800, L505.5000, L100.0100, L500.2500 #### [facility] [address] [place], [address] EPI,SQUAMOUS 5-10 SEEN Normal 5-10 [facility] Comment on above: Order Comment: COLOR OF URINE MAY AFFECT DIPSTICK RESULTS.CLEAN CATCH Performed By: #### M 100.019, L501.9100, L700.6800, L505.5000, L100.0100, L500.2500 #### [facility] [address] [place], [address] RBC 10-25 SEEN Normal 0-5 [facility] Comment on above: Order Comment: COLOR OF URINE MAY AFFECT DIPSTICK RESULTS.CLEAN CATCH Performed By: #### M 100.019, L501.9100, L700.6800, L505.5000, L100.0100, L500.2500 #### [facility] [address] [place], [address] WBC >100 SEEN Normal 0-5 [facility] Comment on above: Order Comment: COLOR OF URINE MAY AFFECT DIPSTICK RESULTS.CLEAN CATCH Performed By: #### M 100.019, L501.9100, L700.6800, L505.5000, L100.0100, L500.2500 #### [facility] [address] [place], [address] Mucus Ql (Urine sed) 0 SEEN Normal [facility] Comment on above: Order Comment: COLOR OF URINE MAY AFFECT DIPSTICK RESULTS.CLEAN CATCH Performed By: #### M 100.019, L501.9100, L700.6800, L505.5000, L100.0100, L500.2500 #### [facility] [address] [place], [address] Urine blood detectionOrdered By: Levi Chapa on 09-20-2024 Urine Occult Blood 25 /ul High Negative [facility] Urine clarityOrdered By: Kae Chapa on 09-20-2024 Clarity (U) Cloudy Clear [facility] Urine color determinationOrd ered By: Levi Chapa on 09-20-2024 Color (U) Red Yellow [facility] Urine cultureOrdered By: Kae Chapa on 09-20-2024 Bacteria identified Cx Nom (U) Presumptive E. coli Abnormal [facility] Urine leukocyte esterase det ection by dipstickOrdered By: Levi Chapa on 09-20-2024 Leukocyte esterase Test strip Ql (U) 500 /ul High Negative [facility] Urine pHOrdered By: Levi eckert on 09-20-2024 pH (U) 7.0 [pH] 5.0 - 8.0 [facility] Urine testOrdered By: Levi Chapa on 09-20-2024 HCG ( test) Ql (U) Negative [facility] Comment on above: Very dilute urine sp ecimens, as indicated by a low specificgravity, may not contain major account representative levels of hCG. If is still suspected, a first morning urinespecimen should be collected 48 hours later and tested. Urine sediment bacteria coun t by microscopy (number/high power field)Ordered By: Levi Chapa on 09-20-2024 Bacteria LM.HPF (Urine sed) [#/Area] 1 /[HPF] None Seen [facility] Urine specific gravity measu rementOrdered By: Levi Chapa on 09-20-2024 Specific gravity (U) [Rel density] 1.015 1.002-1.030 [facility] Urobilinogen Ql (U)Ordered B y: Levi Chapa on 09-20-2024 Urobilinogen (U) [Mass/Vol] 12 mg/dL High Normal [facility] White blood cell (WBC) count Ordered By: Levi Chapa on 09-20-2024 WBC (Bld) [#/Vol] 9.6 10*3/uL 4.4-11.0 [facility] White blood cell countOrdere d By: Levi Chapa on 09-20-2024 Urine WBC >100 SEEN /hpf 0-5 [facility] - Chemistry and C hemistry - challengeOrdered By: Abbey Noble on 09-06-2024 HCG ( test) Ql (U) Negative [facility] Overlock Waistline Joiner Office Visit Reporton 09-06-2024 Overlock Waistline Joiner Office Visit Report [facility] [address], [address] [place] [address] OFFICE VISIT Date of Service: 09/06/24 MR#: [id number] Acct: [id number] Name: PAMELA ALEGRIA Rep #: [id number] : 2000 Provider: UZMA harrison Age/Sex: 24/F Location: [facility] Status: Signed Intake Vital Signs 08/10/24 12:14 09/06/24 15:21 09/06/24 15:29 Height 5 ft 3 in 5 ft 3 in 5 ft 3 in Weight: 197 lb 4 oz BMI 34.9 BP 118/84 H Intake Visit Reasons: New PCOS dx Chief Complaint: New PCOS dx Service Greeter Required: No Is patient in pain?: No Allergies Iodinated Contrast Media Allergy (Intermediate, Verified 09/06/24 15:21) HIVES, SHORT OF BREATH tramadol Allergy (Intermediate, Verified 09/06/24 15:21) itching codeine phosphate (From Tylenol-Codeine #3) Allergy (Verified 09/06/24 15:21) Hives morphine Allergy (Verified 09/06/24 15:21) Itching oxycodone HCl (From Percocet) Allergy (Verified 09/06/24 15:21) Hives red dye Allergy (Verified 09/06/24 15:21) Hives hydromorphone (From Dilaudid) Adverse Reaction (Verified 09/06/24 15:21) Itching Medications ???Medication ???Instructions ???Recorded ???Confirmed ???Type omeprazole 40 mg capsule,delayed See Rx Instructions .Route 4 09/06/24 Rx release .COMPLEX #90 caps trazodone 50 mg tablet 50 mg PO QHS PRN insomnia #10 tabs 04/24/24 09/06/24 Rx sulfamethoxazole 800 1 tab PO BID 5 days #10 tabs 08/1009/06/24 Rx mg-trimethoprim 160 mg tablet (Bactrim DS) medroxyprogesterone 10 mg tablet 10 mg PO QDAY 10 days #10 tabs 09/06/24 Rx metformin 500 mg tablet,extended 500 mg PO QPM #30 tabs 09/06/24 Rx release 24 hr Is last menstrual period known: Yes Last Menstrual Period: 08/01/24 Post menopausal: No Patient : No : No PFSH Medical History History of gestational hypertension Disability examination Change in bowel habit GERD (gastroesophageal reflux disease) Gastroenteritis Irritable bowel syndrome with diarrhea Anxiety and depression Seizures Acute exacerbation of chronic low back pain Insomnia Epilepsy HTN (hypertension) Headache Back problem Anxiety Abdominal pain Surgical History History of laminectomy H/O laparoscopy Family History Mother Endometriosis Depression with anxiety Grandfather Diabetes Aunt Diabetes Grandfather Cancer unknown CA, passed of Unknown Hypertension High cholesterol Father Depression with anxiety Bipolar 1 disorder Social History Smoking Status: Current some day smoker tobacco type: cigarettes and e-cigarettes Electronic Cigarette Use: with nicotine alcohol intake: never substance use type: does not use caffeine: Yes what type of physical activity do you participate in: none seatbelt use: always do you feel safe at home: Yes additional social history: Single-[facility]-[employer] HPI New PCOS dx Details: PAMELA ALEGRIA is a 24 year old who presents for recently told by PCP that she has PCOS. Menses every 4-8 weeks. Her DHEAS slightly elevated. Other labs normal. Acne not problematic. Some facial hair/plucks once a week. States previous OB in [place] had her on metformin 500mg daily and very helpful and she had monthly menses but he retired. Her partner states he has never used contraception and has never achieved with anyone. Female Reproductive History Last Menstrual Period: 08/01/24 Questions: metorrhagia: No, sexually active: Yes, dyspareunia: No and PCB: No History 0 Elective abortions Hx Para Spontaneous abortions Hx # Term Pregnancies Ectopic pregnancies Hx # Pregnancies Multiple births # of living children ROS Const Constitutional: Reports system reviewed and no additional complaints, except as documented Eyes Eyes: Reports system reviewed and no additional complaints, except as documented GI GI: Denies abdominal pain or change in bowel habits : Reports as per HPI Exam Const General: cooperative and no acute distress Nutritional Appearance: obese Orientation: oriented x3 HENMT Head: normal to inspection and normocephalic Eyes General: appearance normal, both eyes and all related structures Neck Neck: normal visual inspection Resp Effort Inspection: normal respiratory effort Neuro Cognition: normal cognition Speech: speech normal Psych Appearance: grossly normal Mood: congruent mood Affect: normal affect Speech and Movement: speech and movement normal Attitude: cooperative Judgment: judgmen (more content not included)... Normal [facility] DHEA Sulfateon 08-24-2024 DHEA SULFATE 399.0 ug/dL High 84.8-378.0 [facility] Comment on above: Order Comment: N Performed By: #### M 100.019, L501.9100, L700.6800, L505.5000, L100.0100, L500.2500 #### [facility] [address] [place], [address] PROGESTERONE 4317on 08-24-19 25 PROGESTERONE 0.1 ng/mL Normal . [facility] Comment on above: Order Comment: N Result Comment: Foll icular phase 0.1 - 0.9 Luteal phase 1.8 - 23.9 Ovulation phase 0.1 - 12.0 First trimester 11.0 - 44.3 Second trimester 25.4 - 83.3 Third trimester 58.7 - 214.0 Postmenopausal 0.0 - 0.1 Performed at: [address] [id number] [employer] Director: Darryl Barnett PhD, Phone: [phone] Performed By: #### M 100.019, L501.9100, L700.6800, L505.5000, L100.0100, L500.2500 #### [facility] [address] [facility] [place], [place], [id number] PROLACTIN 4465on 08-24-2024 PROLACTIN 7.9 ng/mL Normal 4.8-33.4 [facility] Comment on above: Result Comment: Perf ormed at: [facility] [address] [place] [id number] [employer] Director: Darryl Barnett PhD, Phone: [phone] Performed By: #### M 100.019, L501.9100, L700.6800, L505.5000, L100.0100, L500.2500 #### [facility] [address] [facility] [place], [place], [id number] CBC-Complete Blood Cnt No Di ffon 08-22-2024 Erythrocyte distribution width (RBC) [Ratio] 13.6 % Normal 11.6-14.6 [facility] Comment on above: Performed By: #### M 100.019, L501.9100, L700.6800, L505.5000, L100.0100, L500.2500 #### [facility] [address] [place], [place], [id number] Hematocrit (Bld) [Volume fraction] 40.3 % Normal 37-47 [facility] Comment on above: Performed By: #### M 100.019, L501.9100, L700.6800, L505.5000, L100.0100, L500.2500 #### [facility] [address] [place], [address] Hemoglobin (Bld) [Mass/Vol] 13.2 g/dL Normal 12.0-15.0 [facility] Comment on above: Performed By: #### M 100.019, L501.9100, L700.6800, L505.5000, L100.0100, L500.2500 #### [facility] [address] [place], [address] MCH (RBC) [Entitic mass] 29.8 pg Normal 27.0-32.0 [facility] Comment on above: Performed By: #### M 100.019, L501.9100, L700.6800, L505.5000, L100.0100, L500.2500 #### [facility] [address], [address] MCHC (RBC) [Mass/Vol] 32.8 g/dL Normal 32-36 [facility] Comment on above: Performed By: #### M 100.019, L501.9100, L700.6800, L505.5000, L100.0100, L500.2500 #### [facility] [address], [address] MCV (RBC) [Entitic vol] 91.0 fL Normal 81-99 [facility] Comment on above: Performed By: #### M 100.019, L501.9100, L700.6800, L505.5000, L100.0100, L500.2500 #### [facility] [address] [place], [address] Platelet mean volume (Bld) [Entitic vol] 9.9 fL Normal 6.2-12.0 [facility] Comment on above: Performed By: #### M 100.019, L501.9100, L700.6800, L505.5000, L100.0100, L500.2500 #### [facility] [address] [place], [address] Platelets (Bld) [#/Vol] 274 10*3/uL Normal 150-450 [facility] Comment on above: Performed By: #### M 100.019, L501.9100, L700.6800, L505.5000, L100.0100, L500.2500 #### [facility] [address] [place], [address] RBC (Bld) [#/Vol] 4.43 10*6/uL Normal 4.2-5.4 [facility] Comment on above: Performed By: #### M 100.019, L501.9100, L700.6800, L505.5000, L100.0100, L500.2500 #### [facility] [address] [place], [address] RDW SD 45.6 fl High 35.1-43.9 [facility] Comment on above: Performed By: #### M 100.019, L501.9100, L700.6800, L505.5000, L100.0100, L500.2500 #### [facility] [address] [place], [address] WBC (Bld) [#/Vol] 6.3 10*3/uL Normal 4.4-11.0 [facility] Comment on above: Performed By: #### M 100.019, L501.9100, L700.6800, L505.5000, L100.0100, L500.2500 #### [facility] [address] [place], [address] Dehydroepiandrosterone sulfa te (DHEA-S) measurementOrdered By: Chika Hugo on 08-22-2024 Dehydroepiandrosterone Sulfate 399.0 ug/dL High 84.8-378.0 [facility] Erythrocyte distribution wid th (RBC) [Ratio]Ordered By: Chika Hugo on 08-22-2024 Erythrocyte distribution width (RBC) [Entitic vol] 45.6 fL High 35.1-43.9 [facility] Erythrocyte distribution wid th ratioOrdered By: Chika Hugo on 08-22-2024 Erythrocyte distribution width (RBC) [Ratio] 13.6 % 11.6-14.6 [facility] Estradiolon 08-22-2024 ESTRADIOL 61.7 pg/mL Normal [facility] Comment on above: Result Comment: NORM AL REFERENCE RANGES FEMALE FOLLICULAR 21.4 - 164.8 pg/mL MID-CYCLE PEAK 49.9 - 367.2 pg/mL LUTEAL 40.2 - 259.0 pg/mL POST-MENOPAUSAL ON MHT <11.0 - 462.1 pg/mL NOT ON MHT <11.0 - 58.3 pg/mL MALE <11.0 - 52.5 pg/mL NOTE: [employer] HAS CONFIRMED THE DRUG FULVETRANT (FASLODEX) MAY CAUSE FALSELY ELEVATED ESTRADIOL RESULTS WHEN USING THIS TEST METHOD. IF PATIENT IS TAKING FULVESTRANT AN ALTERNATIVE METHOD SHOULD BE USED TO DETERMINE ESTRADIOL CONCENTRATION. Performed By: #### M 100.019, L501.9100, L700.6800, L505.5000, L100.0100, L500.2500 #### [facility] [address] [place] [address], [id number] Estradiol measurementOrdered By: Chika Hugo on 08-22-2024 Estradiol (E2) Level 61.7 pg/mL [facility] Comment on above: NORMAL REFERENCE RAN GES FEMALE FOLLICULAR 21.4 - 164.8 pg/mL MID-CYCLE PEAK 49.9 - 367.2 pg/mL LUTEAL 40.2 - 259.0 pg/mL POST-MENOPAUSAL ON MHT <11.0 - 462.1 pg/mL NOT ON MHT <11.0 - 58.3 pg/mL MALE <11.0 - 52.5 pg/mL NOTE:[employer] HAS CONFIRMED THE DRUG FULVETRANT (FASLODEX) MAY CAUSE FALSELY ELEVATED ESTRADIOL RESULTS WHEN USING THIS TEST METHOD. IF PATIENT IS TAKING FULVESTRANT AN ALTERNATIVE METHOD SHOULD BE USED TO DETERMINE ESTRADIOL CONCENTRATION. FSH and LHon 08-22-2024 FSH 3.8 mIU/mL Normal [facility] Comment on above: Result Comment: NORMAL REFERENCE RANGES FEMALE FOLLICULAR 2.3 - 12.6 mIU/mL MID-CYCLE PEAK 5.2 - 17.5 mIU/mL LUTEAL 1.7 - 12.9 mIU/mL POST-MENOPAUSAL ON MHT 5.9 - 72.8 mIU/mL NOT ON MHT 12.7 - 132.2 mlU/mL MALE 0.7 - 10.8 mIU/mL Performed By: #### M 100.019, L501.9100, L700.6800, L505.5000, L100.0100, L500.2500 #### [facility] [address] [place], [place], [id number] LH 5.4 mIU/mL Normal [facility] Comment on above: Result Comment: NORMAL REFERENCE RANGES FEMALE FOLLICULAR 1.9 - 26.2 mIU/mL MID-CYCLE PEAK 22.8 - 76.1 mIU/mL LUTEAL 0.6 - 16.6 mIU/mL POST-MENOPAUSAL ON MHT 1.1 - 52.4 mIU/mL NOT ON MHT 8.6 - 61.8 mIU/mL MALE 1.2 - 10.6 mIU/mL Performed By: #### M 100.019, L501.9100, L700.6800, L505.5000, L100.0100, L500.2500 #### [facility] [address] [place], [place], [phone] Follicle stimulating hormone (FSH) levelOrdered By: Chika Hugo on 08-22-2024 Follicle Stimulating Hormone 3.8 mIU/mL [facility] Comment on above: NORMAL REFERENCE RAN GES FEMALE FOLLICULAR 2.3 - 12.6 mIU/mL MID-CYCLE PEAK 5.2 - 17.5 mIU/mL LUTEAL 1.7 - 12.9 mIU/mL POST-MENOPAUSAL ON MHT 5.9 - 72.8 mIU/mL NOT ON MHT 12.7 - 132.2 mlU/mL MALE 0.7 - 10.8 mIU/mL Hematocrit Auto (Bld) [Volum e fraction]Ordered By: Chika Hugo on 08-22-2024 Hematocrit (Bld) [Volume fraction] 40.3 % 37-47 [facility] Hemoglobin measurementOrdere d By: Chika Hugo on 08-22-2024 Hemoglobin (Bld) [Mass/Vol] 13.2 g/dL 12.0-15.0 [facility] Luteinizing hormone measurem entOrdered By: Chika Hugo on 08-22-2024 Luteinizing Hormone 5.4 mIU/mL [facility] Comment on above: NORMAL REFERENCE RAN GES FEMALE FOLLICULAR 1.9 - 26.2 mIU/mL MID-CYCLE PEAK 22.8 - 76.1 mIU/mL LUTEAL 0.6 - 16.6 mIU/mL POST-MENOPAUSAL ON MHT 1.1 - 52.4 mIU/mL NOT ON MHT 8.6 - 61.8 mIU/mL MALE 1.2 - 10.6 mIU/mL MCV (mean corpuscular volume ) determinationOrdered By: Chika Hugo on 08-22-2024 MCV (RBC) [Entitic vol] 91.0 fL 81-99 [facility] Mean corpuscular hemoglobin (MCH) determinationOrdered By: Chika Hugo on 08-22-2024 MCH (RBC) [Entitic mass] 29.8 pg 27.0-32.0 [facility] Mean corpuscular hemoglobin concentration (MCHC) determinationOrdered By: Chika Hugo on 08-22-2024 MCHC (RBC) [Mass/Vol] 32.8 g/dL 32-36 [facility] Mean platelet volume determi nationOrdered By: Chika Hugo on 08-22-2024 Platelet mean volume (Bld) [Entitic vol] 9.9 fL 6.2-12.0 [facility] Platelet countOrdered By: Michael Hugo on 08-22-2024 Platelets (Bld) [#/Vol] 274 10*3/uL 150-450 [facility] Prolactin [Mass/Vol]Ordered By: Chika Hugo on 08-22-2024 Prolactin 7.9 ng/mL 4.8-33.4 [facility] Comment on above: Performed at: - [facility] [address] [id number] Director: Darryl Barnett PhD, Phone: [phone] Quantitative serum progester one measurement by electrochemiluminescence immunoassay (Ordered By: Chika Hugo on 08-22-2024 Progesterone Level 0.1 ng/mL . [facility] Comment on above: Follicular phase 0.1 - 0.9 Luteal phase 1.8 - 23.9 Ovulation phase 0.1 - 12.0 First trimester 11.0 - 44.3 Second trimester 25.4 - 83.3 Third trimester 58.7 - 214.0 Postmenopausal 0.0 - 0.1Performed at: [facility] [address] [id number] Director: Darryl Barnett PhD, Phone: [phone] RBC Auto (Bld) [#/Vol]Ordere d By: Chika Hugo on 08-22-2024 RBC (Bld) [#/Vol] 4.43 10*6/uL 4.2-5.4 [facility] TSH QnOrdered By: Chika hendrickson on 08-22-2024 Thyroid Stimulating Hormone (TSH) 0.963 uIU/mL 0.358-3.740 [facility] Testosterone, Serum Totalon 08-22-2024 Testosterone [Mass/Vol] 41.02 ng/dL Normal [facility] Comment on above: Result Comment: CENT RAL 90% REFERENCE RANGES MALE AGE <50 197.44 - 669.58 ng/dL MALE AGE > or = 50 187.72 - 684.19 ng/dL FEMALE AGE <50 8.38 - 35.01 ng/dL FEMALE AGE > or = 50 <7.00 - 35.92 ng/dL Effective as of 02/17/21 Performed By: #### M 100.019, L501.9100, L700.6800, L505.5000, L100.0100, L500.2500 #### [facility] [address] [place], [place], [address] Testosterone, totalOrdered B y: Chika Hugo on 08-22-2024 Testosterone [Mass/Vol] 41.02 ng/dL [facility] Comment on above: CENTRAL 90% REFERENC E RANGES MALE AGE <50 197.44 - 669.58 ng/dL MALE AGE > or = 50 187.72 - 684.19 ng/dL FEMALE AGE <50 8.38 - 35.01 ng/dL FEMALE AGE > or = 50 <7.00 - 35.92 ng/dL Effective as of 02/17/21 Thyroid Stim Hormone (TSH)on 08-22-2024 TSH 0.963 uIU/mL Normal 0.358-3.740 [facility] Comment on above: Performed By: #### M 100.019, L501.9100, L700.6800, L505.5000, L100.0100, L500.2500 #### [facility] [address] [place], [place], [address] White blood cell (WBC) count Ordered By: Chika Hugo on 08-22-2024 WBC (Bld) [#/Vol] 6.3 10*3/uL 4.4-11.0 [facility] Bilirubin Test strip Ql (U)O rdered By: Yovana Loving on 08-10-2024 Bilirubin Ql (U) Negative Negative [facility] Emergency Department Summary on 08-10-2024 Emergency Department Summary [facility] Medical Records Department [address] [place] [address] Emergency Department Summary 08/10/24 MR#: [id number] Acct: [id number] Name: PAMELA ALEGRIA Rep #: [id number] : 2000 24 From: Yovana GIFFORD PCP: Care Physician,No Primary Status:DEP ER Location: ED HPI History of Present Illness Chief Complaint: Abd Pain Narrative Narrative: 24-year-old female has had 5 days of suprapubic cramping and pressure with urination. She thought she saw blood in her urine. Occasionally the pain goes to her right lower back. She states her last menstrual cycle was July 15. She is not on control. She reports 1 episode of nausea and vomiting earlier this week. She states she has had laparoscopic surgery for endometriosis. [facility] Medical History History of gestational hypertension Disability examination Change in bowel habit GERD (gastroesophageal reflux disease) Gastroenteritis Irritable bowel syndrome with diarrhea Anxiety and depression Seizures Acute exacerbation of chronic low back pain Insomnia Epilepsy HTN (hypertension) Headache Back problem Anxiety Abdominal pain Home Medications ???Medication ???Instructions ???Recorded ???Last Taken ???Type norethindrone (contraceptive) 0.35 0.35 mg PO QDAY #84 tabs 02/21/24 Unknown Rx mg tablet (Stephan) omeprazole 40 mg capsule,delayed See Rx Instructions .Route 02/24/24 Unknown Rx release .COMPLEX #90 caps trazodone 50 mg tablet 50 mg PO QHS PRN insomnia #10 tabs 04/24/24 Unknown Rx labetalol 100 mg tablet 100 mg PO DAILY 04/30/24 Unknown History sulfamethoxazole 800 1 tab PO BID 5 days #10 tabs 08/10/24 Unknown Rx mg-trimethoprim 160 mg tablet (Bactrim DS) Allergy/AdvReac Type Severity Reaction Status Date / Time Iodinated Contrast Media Allergy Intermediate HIVES, Verified 08/10/24 12:16 SHORT OF BREATH tramadol Allergy Intermediate itching Verified 08/10/24 12:16 codeine phosphate (From Allergy Hives Verified 08/10/24 12:16 Tylenol-Codeine #3) morphine Allergy Itching Verified 08/10/24 12:16 oxycodone HCl (From Percocet) Allergy Hives Verified 08/10/24 12:16 red dye Allergy Hives Verified 08/10/24 12:16 hydromorphone (From Dilaudid) AdvReac Itching Verified 08/10/24 12:16 Family History Mother Endometriosis Depression with anxiety Grandfather Diabetes Aunt Diabetes Grandfather Cancer unknown CA, passed of Unknown Hypertension High cholesterol Father Depression with anxiety Bipolar 1 disorder Surgical History History of laminectomy H/O laparoscopy Social History Smoking Status: Current some day smoker tobacco type: cigarettes and e-cigarettes Electronic Cigarette Use: with nicotine alcohol intake: never substance use type: does not use caffeine: Yes what type of physical activity do you participate in: none seatbelt use: always do you feel safe at home: Yes additional social history: Single-[facility]-[employer] ROS ROS ED ROS Narrative Constitutional: Negative for fever, chills, malaise. CVS: Negative for chest pain. Respiratory: Negative for shortness of breath. GI: Positive for abdominal pain, nausea, vomiting. Negative for diarrhea, constipation, melena, hematochezia. : Negative for dysuria. EXAM Physical Exam Narrative Exam Narrative: CONST: Patient sitting in no acute distress. EYES: Normal inspection. NECK: Normal inspection. RESP: No respiratory distress, CTAB. CVS: Regular rate and rhythm, no murmur, no gallop. ABD: Soft with suprapubic tenderness, no guarding or rebound, nondistended. Back: Normal inspection, no CVA tenderness. SKIN: Color normal, no rash, warm, dry, intact. EXTREMITIES: Normal appearance, no pedal edema. NEURO: Alert and answering questions appropriately. PSYCH: Normal affect. Const Vital Signs: 08/10/24 12:14 08/10/24 14:14 08/10/24 14:29 Temperature 98.4 F 97.6 F L Temperature Source Oral Pulse Rate 78 98 98 Respiratory Rate 18 18 18 Blood Pressure 128/93 H 122/86 H 122/86 H Blood Pressure Mean 104 98 98 Pulse Ox 100 98 98 Oxygen Delivery Method Room Air Physical Exam Const Vital Signs: 08/10/24 12:14 08/10/24 14:14 08/10/24 14:29 Temperature 98.4 F 97.6 F L Temperature Source Oral Pulse Rate 78 98 98 Respiratory Rate 18 18 18 Blood Pressure 128/93 H 122/86 H 122/86 H Blood Pressure Mean 104 98 98 Pulse Ox 100 98 98 Oxygen Delivery Method Room Air MDM MDM MDM Narrative Medical decision making narrative: (more content not included)... Normal [facility] Epithelial cells.squamous LM Ql (Urine sed)Ordered By: Yovana Loving on 08-10-2024 Epithelial cells.squamous LM.HPF (Urine sed) [#/Area] 5 /[HPF] 5-10 [facility] Glucose Ql (U)Ordered By: Yuliana Loving on 08-10-2024 Urine Glucose (UA) Normal mg/dl Normal [facility] Ketones Test strip Ql (U)Ord ered By: Yovana Loving on 08-10-2024 Ketones Ql (U) 15 mg/dl High Negative [facility] Microscopic analysis of urin e for red blood cells (RBC)Ordered By: Yovana Loving on 08-10-2024 Urine RBC 0 SEEN /hpf 0-5 [facility] Mucus LM Ql (Urine sed)Order ed By: Yovana Loving on 08-10-2024 Mucus Ql (Urine sed) 2+ /hpf [facility] Nitrite Test strip Ql (U)Ord ered By: Yovana Loving on 08-10-2024 Nitrite Ql (U) Negative Negative [facility] ,Urineon 08-10-2024 Beta HCG ( test) Ql (U) Negative Normal [facility] Comment on above: Order Comment: CLEAN CATCH Result Comment: Very dilute urine specimens, as indicated by a low specific gravity, may not contain major account representative levels of hCG. If is still suspected, a first morning urine specimen should be collected 48 hours later and tested. Performed By: #### M 100.019, L501.9100, L700.6800, L505.5000, L100.0100, L500.2500 #### [facility] [address] [place], [place], [address] Protein Test strip Ql (U)Ord ered By: Yovana Loving on 08-10-2024 Protein Ql (U) 30 mg/dl High Negative [facility] Urinalysis, Completeon 08-10 BACTERIA 1+ /hpf Normal None Seen [facility] Comment on above: Order Comment: CLEAN CATCH Performed By: #### M 100.019, L501.9100, L700.6800, L505.5000, L100.0100, L500.2500 #### [facility] [address] [place], [address] EPI,SQUAMOUS 5-10 SEEN Normal 5-10 [facility] Comment on above: Order Comment: CLEAN CATCH Performed By: #### M 100.019, L501.9100, L700.6800, L505.5000, L100.0100, L500.2500 #### [facility] [address] [place], [address] Mucus Ql (Urine sed) 2+ /hpf Normal [facility] Comment on above: Order Comment: CLEAN CATCH Performed By: #### M 100.019, L501.9100, L700.6800, L505.5000, L100.0100, L500.2500 #### [facility] [address] [place], [address] WBC 0-5 SEEN Normal 0-5 [facility] Comment on above: Order Comment: CLEAN CATCH Performed By: #### M 100.019, L501.9100, L700.6800, L505.5000, L100.0100, L500.2500 #### [facility] [address] [place], [address] RBC 0 SEEN Normal 0-5 [facility] Comment on above: Order Comment: CLEAN CATCH Performed By: #### M 100.019, L501.9100, L700.6800, L505.5000, L100.0100, L500.2500 #### [facility] [address] [place], [address] Urine blood detectionOrdered By: Yovana Loving on 08-10-2024 Urine Occult Blood 10 /ul High Negative [facility] Urine clarityOrdered By: Nhung Loving on 08-10-2024 Clarity (U) Sl. Cloudy Clear [facility] Urine color determinationOrd ered By: Yovana Loving on 08-10-2024 Color (U) Yellow Yellow [facility] Urine leukocyte esterase det ection by dipstickOrdered By: Yovana Loving on 01-17-2025 Leukocyte esterase Test strip Ql (U) 25 /ul High Negative [facility] Urine pHOrdered By: Yovana saleh on 08-10-2024 pH (U) 6.0 [pH] 5.0 - 8.0 [facility] Urine testOrdered By: Yovanakierra Loving on 08-10-2024 HCG ( test) Ql (U) Negative [facility] Comment on above: Very dilute urine sp ecimens, as indicated by a low specificgravity, may not contain major account representative levels of hCG. If is still suspected, a first morning urinespecimen should be collected 48 hours later and tested. Urine sediment bacteria coun t by microscopy (number/high power field)Ordered By: Yovana Loving on 08-10-2024 Bacteria LM.HPF (Urine sed) [#/Area] 1 /[HPF] None Seen [facility] Urine specific gravity measu rementOrdered By: Yovana Loving on 08-10-2024 Specific gravity (U) [Rel density] 1.025 1.002-1.030 [facility] Urobilinogen Ql (U)Ordered B y: Yovana Loving on 08-10-2024 Urobilinogen (U) [Mass/Vol] 1 mg/dL High Normal [facility] White blood cell countOrdere d By: Yovana Loving on 08-10-2024 Urine WBC 0-5 SEEN /hpf 0-5 [facility] Abdomen/Pelvis without Conto n 07-28-2024 Abdomen/Pelvis without Cont [facility] [address] [place], [place] [address] Abdomen/Pelvis without Cont MR#: [id number] Acct: [id number] Name: PAMELA ALEGRIA Rep #: [id number] : 2000 F 24 From: Regis Linda MD PCP: Care Physician,No Primary Status: REG ER Study: Abdomen/Pelvis without Cont Date of Exam: 11/16 Exam# [id number] Ordering [place]: [place] [id number] EXAM: CT ABDOMEN AND PELVIS WITHOUT INTRAVENOUS CONTRAST CLINICAL INDICATION: Right upper quadrant and right lower quadrant pain TECHNIQUE: Helically acquired images were obtained of the abdomen and pelvis without intravenous contrast. This CT exam was performed using one or more of the following dose reduction techniques: automated exposure control, adjustment of the mA and/or kV according to patient size, and/or use of iterative reconstruction technique. COMPARISON: 09/28/2023 FINDINGS: LOWER THORAX: Unremarkable. Lung bases are clear. No cardiomegaly. No significant pericardial effusion. ABDOMEN: LIVER: Unremarkable. Homogeneous. GALLBLADDER AND BILE DUCTS: Unremarkable. No calcified gallstones. No gallbladder distention or wall edema. No intra- or extrahepatic biliary ductal dilation. PANCREAS: Unremarkable. No focal cystic mass. SPLEEN: Unremarkable. Normal size without focal cystic or solid mass. ADRENALS: Unremarkable. No nodules. KIDNEYS AND URETERS: Unremarkable. Normal renal size and position. No hydronephrosis. STOMACH AND BOWEL: Unremarkable. No stomach or bowel distention. No focal inflammatory change. PELVIS: APPENDIX: No evidence of acute appendicitis. BLADDER: Unremarkable. REPRODUCTIVE: There is a 2.2 x 2.2 cm fluid density mass in the right hemipelvis which may represent a right ovarian cyst. ABDOMEN and PELVIS: INTRAPERITONEAL SPACE: Unremarkable. No ascites or other fluid collection. No free air. BONES/JOINTS: Unremarkable. No suspicious lytic or blastic abnormality. SOFT TISSUES: Unremarkable. No discrete abdominal or pelvic wall hernia. VASCULATURE: Unremarkable. Abdominal aorta is non-dilated. LYMPH NODES: Unremarkable. No enlarged lymph nodes. CT/Abdomen/Pelvis without Cont IMPRESSION: Fluid density mass in the right hemipelvis which may represent an ovarian cyst. No other acute abnormalities are identified. Electronically Signed: Regis Linda MD at 17:22 [facility] , CC: Dr. 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 Absolute neutrophil countOrd ered By: Aki Kneyon on 07-28-2024 Neutrophils (Bld) [#/Vol] 3.7 10*3/uL 2.0-7.7 [facility] Albumin to globulin ratioOrd ered By: Aki Kenyon on 07-28-2024 Albumin/Globulin [Mass ratio] 1.0 {ratio} 0.9-2.4 [facility] Bacteria LM.HPF (Urine sed) [#/Area]Ordered By: Aki Kenyon on 07-28-2024 Urine Bacteria RARE /hpf None Seen [facility] Basophil percentageOrdered B y: Aki Kenyon on 07-28-2024 Basophils/100 WBC (Bld) 0.3 % 0-1 [facility] Beta HCG ( test) Ql Ordered By: Aki Kenyon on 07-28-2024 Serum Test, Qualitative Negative [facility] Bilirubin Test strip Ql (U)O rdered By: Aki Kenyon on 07-28-2024 Bilirubin Ql (U) Negative Negative [facility] Bilirubin, totalOrdered By: Aki Kenyon on 07-28-2024 Bilirubin [Mass/Vol] 0.50 mg/dL 0.20-1.00 [facility] Comment on above: For patients on eltr ombopag therapy, use of Dimension [place] TBIL is not recommended. Blood urea nitrogen (BUN)/cr eatinine ratioOrdered By: Aki Kenyon on 07-28-2024 Urea nitrogen/Creatinine [Mass ratio] 27.0 mg/mg High 10-20 [facility] CBC W/Diff, Automatedon Absolute Lymph 2.09 X10 3/uL Normal 0.83-4.51 [facility] Comment on above: Performed By: #### M 100.019, L501.9100, L700.6800, L505.5000, L100.0100, L500.2500 #### [facility] [address] [place], [address] Absolute Neut 3.7 X10 3/uL Normal 2.0-7.7 [facility] Comment on above: Performed By: #### M 100.019, L501.9100, L700.6800, L505.5000, L100.0100, L500.2500 #### [facility] [address] [place], [address] Basophils/100 WBC (Bld) 0.3 % Normal 0-1 [facility] Comment on above: Performed By: #### M 100.019, L501.9100, L700.6800, L505.5000, L100.0100, L500.2500 #### [facility] [address] [place], [address] Eosinophils/100 WBC (Bld) 0.8 % Normal 0-5 [facility] Comment on above: Performed By: #### M 100.019, L501.9100, L700.6800, L505.5000, L100.0100, L500.2500 #### [facility] [address] [place], [address] Erythrocyte distribution width (RBC) [Ratio] 13.1 % Normal 11.6-14.6 [facility] Comment on above: Performed By: #### M 100.019, L501.9100, L700.6800, L505.5000, L100.0100, L500.2500 #### [facility] [address] [place], [address] Hematocrit (Bld) [Volume fraction] 41.4 % Normal 37-47 [facility] Comment on above: Performed By: #### M 100.019, L501.9100, L700.6800, L505.5000, L100.0100, L500.2500 #### [facility] [address] [place], [address] Hemoglobin (Bld) [Mass/Vol] 13.7 g/dL Normal 12.0-15.0 [facility] Comment on above: Performed By: #### M 100.019, L501.9100, L700.6800, L505.5000, L100.0100, L500.2500 #### [facility] [address] [place], [address] IG% 0.500 Normal 0.0-0.9 [facility] Comment on above: Result Comment: IG% - Immature Granulocytes (promyelocytes, myelocytes and metamyelocytes) > 1% indicates that a LEFT SHIFT is Present. Performed By: #### M 100.019, L501.9100, L700.6800, L505.5000, L100.0100, L500.2500 #### [facility] [address] [place], [address] Lymphocytes/100 WBC (Bld) 33.4 % Normal 19-41 [facility] Comment on above: Performed By: #### M 100.019, L501.9100, L700.6800, L505.5000, L100.0100, L500.2500 #### [facility] [address] [place], [address] MCH (RBC) [Entitic mass] 29.8 pg Normal 27.0-32.0 [facility] Comment on above: Performed By: #### M 100.019, L501.9100, L700.6800, L505.5000, L100.0100, L500.2500 #### [facility] [address] [place], [address] MCHC (RBC) [Mass/Vol] 33.1 g/dL Normal 32-36 [facility] Comment on above: Performed By: #### M 100.019, L501.9100, L700.6800, L505.5000, L100.0100, L500.2500 #### [facility] [address] [place], [address] MCV (RBC) [Entitic vol] 90.0 fL Normal 81-99 [facility] Comment on above: Performed By: #### M 100.019, L501.9100, L700.6800, L505.5000, L100.0100, L500.2500 #### [facility] [address] [place], [address] Monocytes/100 WBC (Bld) 6.1 % Normal 0-10 [facility] Comment on above: Performed By: #### M 100.019, L501.9100, L700.6800, L505.5000, L100.0100, L500.2500 #### [facility] [address] [place], [address] Neutrophils/100 WBC (Bld) 58.9 % Normal 47-70 [facility] Comment on above: Performed By: #### M 100.019, L501.9100, L700.6800, L505.5000, L100.0100, L500.2500 #### [facility] [address] [place], [address] Nucleated RBC (Bld) [#/Vol] 0 10*3/uL Normal 0-5 [facility] Comment on above: Performed By: #### M 100.019, L501.9100, L700.6800, L505.5000, L100.0100, L500.2500 #### [facility] [address] [place], [address] Platelet mean volume (Bld) [Entitic vol] 10.1 fL Normal 6.2-12.0 [facility] Comment on above: Performed By: #### M 100.019, L501.9100, L700.6800, L505.5000, L100.0100, L500.2500 #### [facility] [address] [place], [address] Platelets (Bld) [#/Vol] 274 10*3/uL Normal 150-450 [facility] Comment on above: Performed By: #### M 100.019, L501.9100, L700.6800, L505.5000, L100.0100, L500.2500 #### [facility] [address] [place], [address] RBC (Bld) [#/Vol] 4.60 10*6/uL Normal 4.2-5.4 [facility] Comment on above: Performed By: #### M 100.019, L501.9100, L700.6800, L505.5000, L100.0100, L500.2500 #### [facility] [address] [place], [address] RDW SD 42.9 fl Normal 35.1-43.9 [facility] Comment on above: Performed By: #### M 100.019, L501.9100, L700.6800, L505.5000, L100.0100, L500.2500 #### [facility] [address] [place], [address] WBC (Bld) [#/Vol] 6.3 10*3/uL Normal 4.4-11.0 [facility] Comment on above: Performed By: #### M 100.019, L501.9100, L700.6800, L505.5000, L100.0100, L500.2500 #### [facility] [address] [place], [place], [id number] [phone] Carbon dioxide measurementOr dered By: Aki Kenyon on 07-28-2024 CO2 [Moles/Vol] 27.0 mmol/L 21.0-32.0 [facility] Chloride measurementOrdered By: Aki Kenyon on 07-28-2024 Chloride [Moles/Vol] 105 mmol/L 98-107 [facility] Comprehensive Metabolic Prof ilon 07-28-2024 Albumin [Mass/Vol] 4.0 g/dL Normal 3.2-5.0 [facility] Comment on above: Performed By: #### M 100.019, L501.9100, L700.6800, L505.5000, L100.0100, L500.2500 #### [facility] [address] [place], [address] Albumin/Globulin [Mass ratio] 1.0 {ratio} Normal 0.9-2.4 [facility] Comment on above: Performed By: #### M 100.019, L501.9100, L700.6800, L505.5000, L100.0100, L500.2500 #### [facility] [address] [place], [address] ALK P 64 U/L Normal 45-117 [facility] Comment on above: Performed By: #### M 100.019, L501.9100, L700.6800, L505.5000, L100.0100, L500.2500 #### [facility] [address] [place], [address] ALT [Catalytic activity/Vol] 26 U/L Normal 13-56 [facility] Comment on above: Performed By: #### M 100.019, L501.9100, L700.6800, L505.5000, L100.0100, L500.2500 #### [facility] [address] [place], [address] AST [Catalytic activity/Vol] 18 U/L Normal 15-37 [facility] Comment on above: Result Comment: Slig ht Hemolysis, Result may be falsely increased. Performed By: #### M 100.019, L501.9100, L700.6800, L505.5000, L100.0100, L500.2500 #### [facility] [address] [place], [address] Bilirubin [Mass/Vol] 0.50 mg/dL Normal 0.20-1.00 [facility] Comment on above: Result Comment: For patients on eltrombopag therapy, use of Dimension [place] TBIL is not recommended. Performed By: #### M 100.019, L501.9100, L700.6800, L505.5000, L100.0100, L500.2500 #### [facility] [address] [place], [address] BUN/CRE 27.0 RATIO High 10-20 [facility] Comment on above: Performed By: #### M 100.019, L501.9100, L700.6800, L505.5000, L100.0100, L500.2500 #### [facility] [address] [place], [address] CA,Total 9.4 mg/dL Normal 8.5-10.1 [facility] Comment on above: Performed By: #### M 100.019, L501.9100, L700.6800, L505.5000, L100.0100, L500.2500 #### [facility] [address] [place], [address] Chloride [Moles/Vol] 105 mmol/L Normal 98-107 [facility] Comment on above: Performed By: #### M 100.019, L501.9100, L700.6800, L505.5000, L100.0100, L500.2500 #### [facility] [address] [place], [address] CO2 [Moles/Vol] 27.0 mmol/L Normal 21.0-32.0 [facility] Comment on above: Performed By: #### M 100.019, L501.9100, L700.6800, L505.5000, L100.0100, L500.2500 #### [facility] [address] [place], [address] Creatinine [Mass/Vol] 0.70 mg/dL Normal 0.55-1.02 [facility] Comment on above: Result Comment: The validity of the calculated GFR GFRAA in patients over 70 years has not been determined. Clinical correlation is essential. Performed By: #### M 100.019, L501.9100, L700.6800, L505.5000, L100.0100, L500.2500 #### [facility] [address] [place], [address] ECRCL 131.78 ml/min Normal [facility] Comment on above: Performed By: #### M 100.019, L501.9100, L700.6800, L505.5000, L100.0100, L500.2500 #### [facility] [address] [place], [address] EST GFR - AA 129 mL/min Normal >60 [facility] Comment on above: Result Comment: Afri can Danish GFR Calc Performed By: #### M 100.019, L501.9100, L700.6800, L505.5000, L100.0100, L500.2500 #### [facility] [address] [place], [address] GAP 5 Normal 5-15 [facility] Comment on above: Performed By: #### M 100.019, L501.9100, L700.6800, L505.5000, L100.0100, L500.2500 #### [facility] [address] [place], [address] GFR/1.73 sq M.predicted among non-blacks MDRD (S/P/Bld) [Vol rate/Area] 106 mL/min/{1.73_m2} Normal >60 [facility] Comment on above: Result Comment: Non- GFR Calc Performed By: #### M 100.019, L501.9100, L700.6800, L505.5000, L100.0100, L500.2500 #### [facility] [address] [place], [address] Globulin (S) [Mass/Vol] 4.1 g/dL Normal 2.2-4.2 [facility] Comment on above: Performed By: #### M 100.019, L501.9100, L700.6800, L505.5000, L100.0100, L500.2500 #### [facility] [address] [place], [address] Glucose [Mass/Vol] 92 mg/dL Normal 74-106 [facility] Comment on above: Performed By: #### M 100.019, L501.9100, L700.6800, L505.5000, L100.0100, L500.2500 #### [facility] [address] [place], [address] Potassium [Moles/Vol] 4.0 mmol/L Normal 3.5-5.1 [facility] Comment on above: Result Comment: Slig ht Hemolysis, Result may be falsely increased. Performed By: #### M 100.019, L501.9100, L700.6800, L505.5000, L100.0100, L500.2500 #### [facility] [address] [place], [address] Sodium [Moles/Vol] 138 mmol/L Normal 136-145 [facility] Comment on above: Performed By: #### M 100.019, L501.9100, L700.6800, L505.5000, L100.0100, L500.2500 #### [facility] [address] [place], [address] T PROT 8.1 g/dL Normal 6.4-8.2 [facility] Comment on above: Performed By: #### M 100.019, L501.9100, L700.6800, L505.5000, L100.0100, L500.2500 #### [facility] [address] [place], [address] Urea nitrogen [Mass/Vol] 19 mg/dL High 7-18 [facility] Comment on above: Performed By: #### M 100.019, L501.9100, L700.6800, L505.5000, L100.0100, L500.2500 #### [facility] [address] [place], [address] Emergency Department Summary on 07-28-2024 Emergency Department Summary [facility] Medical Records Department [address] [place] [address] Emergency Department Summary 07/28/24 MR#: [id number] Acct: [id number] Name: PAMELA ALEGRIA Rep #: [id number] : 2000 24 From: Aki Kenyon MD PCP: Care Physician,No Primary Status:REG ER Location: ED HPI HPI - GI History of Present Illness Chief Complaint: Abd Pain Narrative Narrative: 24-year-old female past medical history of anxiety presents with 2 to 3 days of abdominal pain. States its described as a burning sensation. Is mainly in the right upper quadrant of her abdomen. Food does not make it better or worse but she has had decreased appetite. She states yesterday she experienced 3 episodes of nausea and vomiting without hematemesis. No other exacerbating or alleviating factors. 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 She denies any problems with bowel movements. No diarrhea. No dysuria or hematuria. Her urgent care papers states that she was having more right lower quadrant abdominal pain. [facility] Medical History History of gestational hypertension Disability examination Change in bowel habit GERD (gastroesophageal reflux disease) Gastroenteritis Irritable bowel syndrome with diarrhea Anxiety and depression Seizures Acute exacerbation of chronic low back pain Insomnia Epilepsy HTN (hypertension) Headache Back problem Anxiety Abdominal pain Home Medications ???Medication ???Instructions ???Recorded ???Last Taken ???Type norethindrone (contraceptive) 0.35 0.35 mg PO QDAY #84 tabs 02/21/24 Unknown Rx mg tablet (Stephan) omeprazole 40 mg capsule,delayed See Rx Instructions .Route 02/24/24 Unknown Rx release .COMPLEX #90 caps trazodone 50 mg tablet 50 mg PO QHS PRN insomnia #10 tabs 04/24/24 Unknown Rx labetalol 100 mg tablet 100 mg PO DAILY 04/30/24 Unknown History Allergy/AdvReac Type Severity Reaction Status Date / Time Iodinated Contrast Media Allergy Intermediate HIVES, Verified 07/28/24 14:43 SHORT OF BREATH tramadol Allergy Intermediate itching Verified 07/28/24 14:43 codeine phosphate (From Allergy Hives Verified 07/28/24 14:43 Tylenol-Codeine #3) morphine Allergy Itching Verified 07/28/24 14:43 oxycodone HCl (From Percocet) Allergy Hives Verified 07/28/24 14:43 red dye Allergy Hives Verified 07/28/24 14:43 hydromorphone (From Dilaudid) AdvReac Itching Verified 07/28/24 14:43 Family History Mother Endometriosis Depression with anxiety Grandfather Diabetes Aunt Diabetes Grandfather Cancer unknown CA, passed of Unknown Hypertension High cholesterol Father Depression with anxiety Bipolar 1 disorder Surgical History History of laminectomy H/O laparoscopy Social History Smoking Status: Current some day smoker tobacco type: cigarettes and e-cigarettes Electronic Cigarette Use: with nicotine alcohol intake: never substance use type: does not use caffeine: Yes what type of physical activity do you participate in: none seatbelt use: always do you feel safe at home: Yes 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 HEENT: No sore throat. No neck pain. No loss of vision. No rhinorrhea. Cardiovascular: No chest pain. No palpitations. No pedal edema. Respiratory: No cough, no shortness of breath. Abdominal: Positive abdominal pain. Positive nausea and vomiting, 3 episodes in the last 24 hours. No hematemesis. No diarrhea. Genitourinary: No dysuria. No hematuria. Musculoskeletal: No myalgias. No arthralgias. Neurologic: No headaches. No dizziness. No lightheadedness. Skin: No rash. No change in color. EXAM Physical Exam Narrative Exam Narrative: Afebrile. Vital signs noted. Regular rate and rhythm. Lungs clear to auscultation bilaterally. Abdomen is soft with minimal tenderness to palpation in the right upper quadrant. Negative Vargas sign. No guarding or rebound. No pain over McBurney's point. Positive bowel sounds. Neurological examination is nonfocal and nonlateralizing. Const Vital Signs: 07/28/24 14:42 07/28/24 16:41 Temperature 98.6 F Temperature Source Oral Pulse Rate 80 78 Respiratory Rate 16 16 Blood Pressure 115/81 H 93/62 Blood Pressure Mean 92 72 Pulse Ox 100 99 Oxygen Delivery Method Room Air MDM MDM MDM Narrative Medical decision making narrative: Differential diagnosis includes but not limited to ureterolithiasis versus acute appendicitis versus biliary colic versus cholecystitis (more content not included)... Normal [facility] Eosinophil percentageOrdered By: Aki Kenyon on 07-28-2024 Eosinophils/100 WBC (Bld) 0.8 % 0-5 [facility] Epithelial cells.renal LM.HP F (Urine sed) [#/Area]Ordered By: Aki Kenyon on 07-28-2024 Urine Renal Epithelial Cells 0-5 SEEN /hpf 0-5 [facility] Epithelial cells.squamous LM Ql (Urine sed)Ordered By: Aki Kenyon on 07-28-2024 Epithelial cells.squamous LM.HPF (Urine sed) [#/Area] 5 /[HPF] 5-10 [facility] Erythrocyte distribution wid th (RBC) [Ratio]Ordered By: Aki Kenyon on 07-28-2024 Erythrocyte distribution width (RBC) [Entitic vol] 42.9 fL 35.1-43.9 [facility] Erythrocyte distribution wid th ratioOrdered By: Aki Kenyon on 07-28-2024 Erythrocyte distribution width (RBC) [Ratio] 13.1 % 11.6-14.6 [facility] Estimated glomerular filtrat ion rate (GFR) AmericanOrdered By: Aki Kenyon on 07-28-2024 Estimated GFR (MDRD) Amer 129 mL/min >60 [facility] Comment on above: GFR Calc Estimation of creatinine nakul aranceOrdered By: Aki Kenyon on 07-28-2024 Estimated Creatinine Clearance Calc 131.78 ml/min [facility] Glomerular filtration rate ( GFR) estimationOrdered By: Aki Kenyon on 07-28-2024 Estimated GFR (MDRD) Non-Af Amer 106 mL/min >60 [facility] Comment on above: Non- GFR Calc Glucose Ql (U)Ordered By: Roman Butlerodica on 07-28-2024 Urine Glucose (UA) Normal mg/dl Normal [facility] Glucose measurementOrdered B y: Aki Kostas on 07-28-2024 Glucose [Mass/Vol] 92 mg/dL 74-106 [facility] Hematocrit Auto (Bld) [Volum e fraction]Ordered By: Aki Kenyon on 07-28-2024 Hematocrit (Bld) [Volume fraction] 41.4 % 37-47 [facility] Hemoglobin measurementOrdere d By: Aki Kenyon on 07-28-2024 Hemoglobin (Bld) [Mass/Vol] 13.7 g/dL 12.0-15.0 [facility] Immature granulocytes/100 WB C Auto (Bld)Ordered By: Aki Kenyon on 07-28-2024 Immature granulocytes/100 WBC (Bld) 0.500 % 0.0-0.9 [facility] Comment on above: IG% - Immature Granu locytes (promyelocytes, myelocytes and metamyelocytes) > 1% indicates that a LEFT SHIFT is Present. Ketones Test strip Ql (U)Ord ered By: Aki Kenyon on 07-28-2024 Ketones Ql (U) 5 mg/dl High Negative [facility] - Chemistry and C hemistry - challengeOrdered By: Aki Kenyon on 07-28-2024 AST [Catalytic activity/Vol] 18 U/L 15-37 [facility] Comment on above: Slight Hemolysis, Re sult may be falsely increased. Lipaseon 07-28-2024 Lipase [Catalytic activity/Vol] 24 U/L Normal 13-75 [facility] Comment on above: Result Comment: Ayush dewitt note: LIPASE revised reference range effective 22. New Lipase methodology. Expected to produce lower values than the previous assay method. NEW Reference Range: 13 - 75 U/L Performed By: #### M 100.019, L501.9100, L700.6800, L505.5000, L100.0100, L500.2500 #### [facility] [address] [place] [address]. [place], [address] Lipase measurementOrdered By : Aki Kenyon on 07-28-2024 Lipase [Catalytic activity/Vol] 24 U/L 13-75 [facility] Comment on above: Please note:LIPASE r evised reference range effective 22. New Lipase methodology. Expected to produce lower values than the previous assay method. NEW Reference Range: 13 - 75 U/L Lymphocytes Auto (Unsp spec) [#/Vol]Ordered By: Aki Kenyon on 07-28-2024 Lymphocytes (Bld) [#/Vol] 2.09 10*3/uL 0.83-4.51 [facility] Lymphocytes/100 WBC Auto (Un sp spec)Ordered By: Aki Kenyon on 07-28-2024 Lymphocytes/100 WBC (Bld) 33.4 % 19-41 [facility] MCV (mean corpuscular volume ) determinationOrdered By: Aki Kenyon on 07-28-2024 MCV (RBC) [Entitic vol] 90.0 fL 81-99 [facility] Mean corpuscular hemoglobin (MCH) determinationOrdered By: Aki Kenyon on 07-28-2024 MCH (RBC) [Entitic mass] 29.8 pg 27.0-32.0 [facility] Mean corpuscular hemoglobin concentration (MCHC) determinationOrdered By: Aki Kenyon on 07-28-2024 MCHC (RBC) [Mass/Vol] 33.1 g/dL 32-36 [facility] Mean platelet volume determi nationOrdered By: Aki Kenyon on 07-28-2024 Platelet mean volume (Bld) [Entitic vol] 10.1 fL 6.2-12.0 [facility] Microscopic analysis of urin e for red blood cells (RBC)Ordered By: Aki Kenyon on 07-28-2024 Urine RBC 0-5 SEEN /hpf 0-5 [facility] Monocyte percentageOrdered B y: Aki Kenyon on 07-28-2024 Monocytes/100 WBC (Bld) 6.1 % 0-10 [facility] Mucus LM Ql (Urine sed)Order ed By: Aki Kenyon on 07-28-2024 Mucus Ql (Urine sed) 0 SEEN /hpf [facility] Neutrophil percentageOrdered By: Aki Kenyon on 07-28-2024 Neutrophils/100 WBC (Bld) 58.9 % 47-70 [facility] Nitrite Test strip Ql (U)Ord ered By: Aki Kenyon on 07-28-2024 Nitrite Ql (U) Negative Negative [facility] Nucleated red blood cell per centageOrdered By: Aki Kenyon on 07-28-2024 Nucleated RBC/100 WBC (Bld) [Ratio] 0 % 0-5 [facility] Platelet countOrdered By: Roman Kenyon on 07-28-2024 Platelets (Bld) [#/Vol] 274 10*3/uL 150-450 [facility] Potassium measurementOrdered By: Aki Kenyon on 07-28-2024 Potassium [Moles/Vol] 4.0 mmol/L 3.5-5.1 [facility] Comment on above: Slight Hemolysis, Re sult may be falsely increased. ,Serum,hCG Quali.on 07-28-2024 HCG, SERUM QUAL Negative Normal [facility] Comment on above: Performed By: #### L 700.6800 #### [facility] [address] [place] [address], [address] Protein Test strip Ql (U)Ord ered By: Aki Kenyon on 07-28-2024 Protein Ql (U) 15 mg/dl High Negative [facility] RBC Auto (Bld) [#/Vol]Ordere d By: Aki Kenyon on 07-28-2024 RBC (Bld) [#/Vol] 4.60 10*6/uL 4.2-5.4 [facility] Serum anion gap measurementO rdered By: Aki Kenyon on 07-28-2024 Anion gap [Moles/Vol] 5 mmol/L 5-15 [facility] Serum globulin measurementOr dered By: Aki Kenyon on 07-28-2024 Globulin (S) [Mass/Vol] 4.1 g/dL 2.2-4.2 [facility] Serum or plasma alanine blanco otransferase (ALT) measurementOrdered By: Aki Kenyon on 07-28-2024 ALT [Catalytic activity/Vol] 26 U/L 13-56 [facility] Serum or plasma albumin fabio urement (mass/volume)Ordered By: Aki Kenyon on 07-28-2024 Albumin [Mass/Vol] 4.0 g/dL 3.2-5.0 [facility] Serum or plasma alkaline nael sphatase measurementOrdered By: Aki Kenyon on 07-28-2024 ALP [Catalytic activity/Vol] 64 U/L 45-117 [facility] Serum or plasma calcium fabio urement (mass/volume)Ordered By: Aki Kenyon on 07-28-2024 Calcium [Mass/Vol] 9.4 mg/dL 8.5-10.1 [facility] Serum or plasma creatinine m easurement (mass/volume)Ordered By: Aki Kenyon on 07-28-2024 Creatinine [Mass/Vol] 0.70 mg/dL 0.55-1.02 [facility] Comment on above: The validity of the calculated GFR & GFRAA in patients over 70 years has not been determined. Clinical correlation is essential. Serum or plasma urea nitroge n measurement (mass/volume)Ordered By: Aki Kenyon on 07-28-2024 Urea nitrogen [Mass/Vol] 19 mg/dL High 7-18 [facility] Sodium levelOrdered By: Aki Kenyon on 07-28-2024 Sodium [Moles/Vol] 138 mmol/L 136-145 [facility] Total proteinOrdered By: Amanda Kenyon on 07-28-2024 Protein [Mass/Vol] 8.1 g/dL 6.4-8.2 [facility] Urinalysis, Completeon 07-28 BACTERIA RARE Normal None Seen [facility] Comment on above: Order Comment: CLEAN CATCH Performed By: #### M 100.019, L501.9100, L700.6800, L505.5000, L100.0100, L500.2500 #### [facility] [address] [place], [place], [id number] EPI,RENAL 0-5 SEEN Normal 0-5 [facility] Comment on above: Order Comment: CLEAN CATCH Performed By: #### M 100.019, L501.9100, L700.6800, L505.5000, L100.0100, L500.2500 #### [facility] [address] [place], [address] EPI,SQUAMOUS 5-10 SEEN Normal 5-10 [facility] Comment on above: Order Comment: CLEAN CATCH Performed By: #### M 100.019, L501.9100, L700.6800, L505.5000, L100.0100, L500.2500 #### [facility] [address] [place], [address] RBC 0-5 SEEN Normal 0-5 [facility] Comment on above: Order Comment: CLEAN CATCH Performed By: #### M 100.019, L501.9100, L700.6800, L505.5000, L100.0100, L500.2500 #### [facility] [address] [place], [address] WBC 0-5 SEEN Normal 0-5 [facility] Comment on above: Order Comment: CLEAN CATCH Performed By: #### M 100.019, L501.9100, L700.6800, L505.5000, L100.0100, L500.2500 #### [facility] [address] [place], [address] Mucus Ql (Urine sed) 0 SEEN Normal [facility] Comment on above: Order Comment: CLEAN CATCH Performed By: #### M 100.019, L501.9100, L700.6800, L505.5000, L100.0100, L500.2500 #### [facility] [address] [place], [address] Urine blood detectionOrdered By: Aki Kenyon on 07-28-2024 Urine Occult Blood Negative Negative [facility] Urine clarityOrdered By: Amanda Kenyon on 07-28-2024 Clarity (U) Clear Clear [facility] Urine color determinationOrd ered By: Aki Kenyon on 07-28-2024 Color (U) Yellow Yellow [facility] Urine leukocyte esterase det ection by dipstickOrdered By: Aki Kenyon on 07-28-2024 Leukocyte esterase Test strip Ql (U) 25 /ul High Negative [facility] Urine pHOrdered By: Aki Koroma jeannakierra on 07-28-2024 pH (U) 6.0 [pH] 5.0 - 8.0 [facility] Urine specific gravity measu rementOrdered By: Aki Robkierra on 07-28-2024 Specific gravity (U) [Rel density] 1.020 1.002-1.030 [facility] Urobilinogen Ql (U)Ordered B y: Aki Robkierra on 07-28-2024 Urine Urobilinogen Normal mg/dl Normal [facility] White blood cell (WBC) count Ordered By: Aki Butlermarshal on 07-28-2024 WBC (Bld) [#/Vol] 6.3 10*3/uL 4.4-11.0 [facility] White blood cell countOrdere d By: Aki Kenyon on 07-28-2024 Urine WBC 0-5 SEEN /hpf 0-5 [facility] Alcohol, Blood (Medical)-Ser umon 04-30-2024 SERUM ETOH < 3.[address] [facility] Comment on above: Result Comment: The serum:whole blood ethanol ratio is approximately 1.14 and varies slightly with hematocrit. Medical Alcohol reference interval and critical value in non-tolerant individuals; 50 - 100 Impairment 100 Intoxication 100 - 250 Severe Poisoning 250 - 400 Deep/possible fatal coma Performed By: #### M 100.019, L501.9100, L700.6800, L505.5000, L100.0100, L500.2500 #### [facility] [address] [place], [address] Basic Metabolic Profile (BMP )on 04-30-2024 BUN/CRE 21.4 RATIO High - [facility] Comment on above: Performed By: #### M 100.019, L501.9100, L700.6800, L505.5000, L100.0100, L500.2500 #### [facility] [address] [place], [address] CA,Total 9.8 mg/dL Normal 8.5-10.1 [facility] Comment on above: Performed By: #### M 100.019, L501.9100, L700.6800, L505.5000, L100.0100, L500.2500 #### [facility] [address] [place], [address] Chloride [Moles/Vol] 107 mmol/L Normal 98-107 [facility] Comment on above: Performed By: #### M 100.019, L501.9100, L700.6800, L505.5000, L100.0100, L500.2500 #### [facility] [address] [place], [address] CO2 [Moles/Vol] 26.0 mmol/L Normal 21.0-32.0 [facility] Comment on above: Performed By: #### M 100.019, L501.9100, L700.6800, L505.5000, L100.0100, L500.2500 #### [facility] [address] [place], [address] Creatinine [Mass/Vol] 0.89 mg/dL Normal 0.55-1.02 [facility] Comment on above: Result Comment: The validity of the calculated GFR GFRAA in patients over 70 years has not been determined. Clinical correlation is essential. Performed By: #### M 100.019, L501.9100, L700.6800, L505.5000, L100.0100, L500.2500 #### [facility] [address] [place], [address] ECRCL 102.22 ml/min Normal [facility] Comment on above: Performed By: #### M 100.019, L501.9100, L700.6800, L505.5000, L100.0100, L500.2500 #### [facility] [address] [place], [address] EST GFR - AA 99 mL/min Normal >60 [facility] Comment on above: Result Comment: Afri can Danish GFR Calc Performed By: #### M 100.019, L501.9100, L700.6800, L505.5000, L100.0100, L500.2500 #### [facility] [address] [place], [address] GAP 7 Normal 5-15 [facility] Comment on above: Performed By: #### M 100.019, L501.9100, L700.6800, L505.5000, L100.0100, L500.2500 #### [facility] [address] [place], [address] GFR/1.73 sq M.predicted among non-blacks MDRD (S/P/Bld) [Vol rate/Area] 82 mL/min/{1.73_m2} Normal >60 [facility] Comment on above: Result Comment: Non- GFR Calc Performed By: #### M 100.019, L501.9100, L700.6800, L505.5000, L100.0100, L500.2500 #### [facility] [address] [place], [address] Glucose [Mass/Vol] 104 mg/dL Normal 74-106 [facility] Comment on above: Result Comment: Fast ing Glucose result from 100 to 125 mg/dL suggests IMPAIRED HOMEOSTASIS per A.D.A. criteria. Performed By: #### M 100.019, L501.9100, L700.6800, L505.5000, L100.0100, L500.2500 #### [facility] [address] [place], [address] Potassium [Moles/Vol] 3.6 mmol/L Normal 3.5-5.1 [facility] Comment on above: Performed By: #### M 100.019, L501.9100, L700.6800, L505.5000, L100.0100, L500.2500 #### [facility] [address] [place], [address] Sodium [Moles/Vol] 140 mmol/L Normal 136-145 [facility] Comment on above: Performed By: #### M 100.019, L501.9100, L700.6800, L505.5000, L100.0100, L500.2500 #### [facility] [address] [place], [address] Urea nitrogen [Mass/Vol] 19 mg/dL High 7-18 [facility] Comment on above: Performed By: #### M 100.019, L501.9100, L700.6800, L505.5000, L100.0100, L500.2500 #### [facility] [address] [place], [address] CBC W/Diff, Automatedon 10-0 Absolute Lymph 1.46 X10 3/uL Normal 0.83-4.51 [facility] Comment on above: Performed By: #### M 100.019, L501.9100, L700.6800, L505.5000, L100.0100, L500.2500 #### [facility] [address], [address] Absolute Neut 4.8 X10 3/uL Normal 2.0-7.7 [facility] Comment on above: Performed By: #### M 100.019, L501.9100, L700.6800, L505.5000, L100.0100, L500.2500 #### [facility] [address] [place], [address] Basophils/100 WBC (Bld) 0.3 % Normal 0-1 [facility] Comment on above: Performed By: #### M 100.019, L501.9100, L700.6800, L505.5000, L100.0100, L500.2500 #### [facility] [address], [address] Eosinophils/100 WBC (Bld) 1.9 % Normal 0-5 [facility] Comment on above: Performed By: #### M 100.019, L501.9100, L700.6800, L505.5000, L100.0100, L500.2500 #### [facility] [address] [place], [address] Erythrocyte distribution width (RBC) [Ratio] 13.2 % Normal 11.6-14.6 [facility] Comment on above: Performed By: #### M 100.019, L501.9100, L700.6800, L505.5000, L100.0100, L500.2500 #### [facility] [address] [place], [address] Hematocrit (Bld) [Volume fraction] 42.7 % Normal 37-47 [facility] Comment on above: Performed By: #### M 100.019, L501.9100, L700.6800, L505.5000, L100.0100, L500.2500 #### [facility] [address] [place], [address] Hemoglobin (Bld) [Mass/Vol] 13.6 g/dL Normal 12.0-15.0 [facility] Comment on above: Performed By: #### M 100.019, L501.9100, L700.6800, L505.5000, L100.0100, L500.2500 #### [facility] [address], [address] IG% 0.600 Normal 0.0-0.9 [facility] Comment on above: Result Comment: IG% - Immature Granulocytes (promyelocytes, myelocytes and metamyelocytes) > 1% indicates that a LEFT SHIFT is Present. Performed By: #### M 100.019, L501.9100, L700.6800, L505.5000, L100.0100, L500.2500 #### [facility] [address] [place], [address] Lymphocytes/100 WBC (Bld) 21.3 % Normal 19-41 [facility] Comment on above: Performed By: #### M 100.019, L501.9100, L700.6800, L505.5000, L100.0100, L500.2500 #### [facility] [address] [place], [address] MCH (RBC) [Entitic mass] 30.2 pg Normal 27.0-32.0 [facility] Comment on above: Performed By: #### M 100.019, L501.9100, L700.6800, L505.5000, L100.0100, L500.2500 #### [facility] [address] [place], [address] MCHC (RBC) [Mass/Vol] 31.9 g/dL Low 32-36 [facility] Comment on above: Performed By: #### M 100.019, L501.9100, L700.6800, L505.5000, L100.0100, L500.2500 #### [facility] [address] [place], [address] MCV (RBC) [Entitic vol] 94.9 fL Normal 81-99 [facility] Comment on above: Performed By: #### M 100.019, L501.9100, L700.6800, L505.5000, L100.0100, L500.2500 #### [facility] [address] [place], [address] Monocytes/100 WBC (Bld) 6.6 % Normal 0-10 [facility] Comment on above: Performed By: #### M 100.019, L501.9100, L700.6800, L505.5000, L100.0100, L500.2500 #### [facility] [address] [place], [address] Neutrophils/100 WBC (Bld) 69.3 % Normal 47-70 [facility] Comment on above: Performed By: #### M 100.019, L501.9100, L700.6800, L505.5000, L100.0100, L500.2500 #### [facility] [address] [place], [address] Nucleated RBC (Bld) [#/Vol] 0 10*3/uL Normal 0-5 [facility] Comment on above: Performed By: #### M 100.019, L501.9100, L700.6800, L505.5000, L100.0100, L500.2500 #### [facility] [address] [place], [address] Platelet mean volume (Bld) [Entitic vol] 9.9 fL Normal 6.2-12.0 [facility] Comment on above: Performed By: #### M 100.019, L501.9100, L700.6800, L505.5000, L100.0100, L500.2500 #### [facility] [address] [place], [address] Platelets (Bld) [#/Vol] 301 10*3/uL Normal 150-450 [facility] Comment on above: Performed By: #### M 100.019, L501.9100, L700.6800, L505.5000, L100.0100, L500.2500 #### [facility] [address] [place], [address] RBC (Bld) [#/Vol] 4.50 10*6/uL Normal 4.2-5.4 [facility] Comment on above: Performed By: #### M 100.019, L501.9100, L700.6800, L505.5000, L100.0100, L500.2500 #### [facility] [address], [address] RDW SD 46.2 fl High 35.1-43.9 [facility] Comment on above: Performed By: #### M 100.019, L501.9100, L700.6800, L505.5000, L100.0100, L500.2500 #### [facility] [address] [place], [address] WBC (Bld) [#/Vol] 6.9 10*3/uL Normal 4.4-11.0 [facility] Comment on above: Performed By: #### M 100.019, L501.9100, L700.6800, L505.5000, L100.0100, L500.2500 #### [facility] [address], [address] Emergency Department Summary on 04-30-2024 Emergency Department Summary [facility] Medical Records Department [address] [place] [address] Emergency Department Summary 04/30/24 MR#: [id number] Acct: [id number] Name: PAMELA ALEGRIA Rep #: [id number] : 2000 24 From: Jamaal GUSMAN PCP: Dr. Ishmael Vu MD Status:DEP ER Location: ED [facility] History of Present Illness Chief Complaint: Suicidal Narrative Narrative: Patient is a 24-year-old female with history of chronic back pain, anxiety, PTSD, bipolar, GERD who presents to the emergency department for suicidal ideations, audio hallucinations, uncontrolled anxiety/manic episodes. Patient has been in contact with crisis, patient today drove there, and secondary to her manic speech, her explanation of her suicidal ideations as well as her auditory hallucinations, they referred her to the emergency department. She is pink slipped via the crisis center. The plan per the patient is to get admitted to a psychiatric facility. She denies any specific chest pain, nausea or vomiting. Patient has been drinking alcohol 5-7 beers daily however has not had any alcohol in 1 week. Patient has stressors such as her mother, she is in a relationship which is important to her. [facility] Medical History History of gestational hypertension Disability examination Change in bowel habit GERD (gastroesophageal reflux disease) Gastroenteritis Irritable bowel syndrome with diarrhea Anxiety and depression Seizures Acute exacerbation of chronic low back pain Insomnia Epilepsy HTN (hypertension) Headache Back problem Anxiety Abdominal pain Home Medications ???Medication ???Instructions ???Recorded ???Last Taken ???Type norethindrone (contraceptive) 0.35 0.35 mg PO QDAY #84 tabs 02/21/24 Unknown Rx mg tablet (Stephan) omeprazole 40 mg capsule,delayed See Rx Instructions .Route 02/24/24 Unknown Rx release .COMPLEX #90 caps trazodone 50 mg tablet 50 mg PO QHS PRN insomnia #10 tabs 04/24/24 Unknown Rx labetalol 100 mg tablet 100 mg PO DAILY 04/30/24 Unknown History Allergy/AdvReac Type Severity Reaction Status Date / Time Iodinated Contrast Media Allergy Intermediate HIVES, Verified 04/30/24 12:53 SHORT OF BREATH tramadol Allergy Intermediate itching Verified 04/30/24 12:53 codeine phosphate (From Allergy Hives Verified 04/30/24 12:53 Tylenol-Codeine #3) morphine Allergy Itching Verified 04/30/24 12:53 oxycodone HCl (From Percocet) Allergy Hives Verified 04/30/24 12:53 red dye Allergy Hives Verified 04/30/24 12:53 hydromorphone (From Dilaudid) AdvReac Itching Verified 04/30/24 12:53 Family History Mother Endometriosis Depression with anxiety Grandfather Diabetes Aunt Diabetes Grandfather Cancer unknown CA, passed of Unknown Hypertension High cholesterol Father Depression with anxiety Bipolar 1 disorder Surgical History History of laminectomy H/O laparoscopy Social History Smoking Status: Current some day smoker tobacco type: cigarettes and e-cigarettes Electronic Cigarette Use: with nicotine alcohol intake: never substance use type: does not use caffeine: Yes what type of physical activity do you participate in: none seatbelt use: always do you feel safe at home: Yes additional social history: Single-[facility] [employer] ROS ROS ED ROS Narrative Constitutional: Negative for fever, chills, weight loss, weakness Eyes: Negative for vision loss, vision change, double vision ENT: Negative for any sore throat, ear pain, congestion Cardiovascular: Negative for any chest pain, tightness, palpitations Respiratory: Negative for any cough, sputum production, hemoptysis, dyspnea, dyspnea on exertion, orthopnea Gastrointestinal: Negative for any abdominal pain, nausea, vomiting, diarrhea, constipation, blood in stool, blood in vomit : Negative for any urinary frequency, dysuria, retention, blood in urine Muscle skeletal: Negative for any neck pain, back pain Neurological: Negative for any headache, syncope, dizziness Skin: Negative for any rashes, itching, abrasions, lacerations Psychiatric: Negative for any homicidal ideation. Positive for anxiety, manic episodes, suicidal ideation, auditory elucidation's Hematologic: Negative for any excessive bruising, easy bleeding EXAM Physical Exam Narrative Exam Narrative: Vital signs reviewed. Patient on my initial evaluation is tearful, patient is constantly crying, she continues to say that she needs help. HEET: Head normocephalic atraumatic, TMs clear bilaterally. Posterior pharynx is clear, moist mucous membranes. Nares cl (more content not included)... Normal [facility] M100.019on 04-30-[address] [facility] Comment on above: Performed By: #### M 100.019, L501.9100, L700.6800, L505.5000, L100.0100, L500.2500 #### [facility] [address] [place], [address] ,Serum,hCG Quali.on 04-30-2024 HCG, SERUM QUAL Negative Normal [facility] Comment on above: Performed By: #### M 100.019, L501.9100, L700.6800, L505.5000, L100.0100, L500.2500 #### [facility] [address] [place], [address] Urine Drug Screen (VISTA)on 04-30-2024 AMPHETAMINES Negative Normal <1000 ng/mL [facility] Comment on above: Performed By: #### M 100.019, L501.9100, L700.6800, L505.5000, L100.0100, L500.2500 #### [facility] [address] [place] [address] BARBITIURATES Negative Normal < 200 ng/mL [facility] Comment on above: Performed By: #### M 100.019, L501.9100, L700.6800, L505.5000, L100.0100, L500.2500 #### [facility] [employer] [place], [place], [facility] BENZODIAZIPINE Positive Abnormal < 200 ng/mL [facility] Comment on above: Performed By: #### M 100.019, L501.9100, L700.6800, L505.5000, L100.0100, L500.2500 #### [facility] [employer] [place], [facility] COCAINE Negative Normal < 300 ng/mL [facility] Comment on above: Performed By: #### M 100.019, L501.9100, L700.6800, L505.5000, L100.0100, L500.2500 #### [facility] [address] [place], [facility] ECSTACY Negative Normal < 500 ng/mL [facility] Comment on above: Performed By: #### M 100.019, L501.9100, L700.6800, L505.5000, L100.0100, L500.2500 #### [facility] [address] [place], [address] METHADONE Negative Normal < 300 ng/mL [facility] Comment on above: Performed By: #### M 100.019, L501.9100, L700.6800, L505.5000, L100.0100, L500.2500 #### [facility] [address], [address] OPIATES Negative Normal < 300 ng/mL [facility] Comment on above: Performed By: #### M 100.019, L501.9100, L700.6800, L505.5000, L100.0100, L500.2500 #### [facility] [address] [place], [address] PCP Negative Normal < 25 ng/mL [facility] Comment on above: Performed By: #### M 100.019, L501.9100, L700.6800, L505.5000, L100.0100, L500.2500 #### [facility] [address], [address] THC Negative Normal < 50 ng/mL [facility] Comment on above: Performed By: #### M 100.019, L501.9100, L700.6800, L505.5000, L100.0100, L500.2500 #### [facility] [address] [place], [address] VISTA UDS PH [address] [facility] Comment on above: Performed By: #### M 100.019, L501.9100, L700.6800, L505.5000, L100.0100, L500.2500 #### [facility] [address] [place], [address] 12 Lead EKGon 04-24-2024 12 Lead EKG [facility] [address] [place], [place] [address] [address] 12 Lead EKG 04/24/24 1259 MR#: [id number] Acct: [id number] Name: PAMELA ALEGRIA Rep #: [id number] : 2000 24 From: Mina Gao MD Attending Dr: Status: DEP ER Ordering Dr: Gregory Neil DO Date: 04/24/24 Location: ED Sex: F C Admitted: Test Reason : SOB Blood Pressure : / mmHG Vent. Rate : 111 BPM Atrial Rate : 111 BPM P-R Int : 150 ms QRS Dur : 074 ms QT Int : 332 ms P-R-T Axes : 027 -04 017 degrees QTc Int : 451 ms Sinus tachycardia Otherwise normal ECG Confirmed by BARBARA WRIGHT, MINA ([id number]), offline editor JONAS WORKMAN ([id number]) on 04/26/2024 1:21:11 PM Referred By: Confirmed By:MINA GAO MD 04/26/24 1321 Date Mina Gao MD CC: Dr. Ishmael Vu MD; Dr. Gregory Niel DO Signed Normal [facility] CBC W/Diff, Automatedon 10-0 Absolute Lymph 1.46 X10 3/uL Normal 0.83-4.51 [facility] Comment on above: Performed By: #### L 501.2450, L501.4020, L500.4050, L100.0100, L700.6800 #### [facility] [address] [place], [address] Absolute Neut 5.3 X10 3/uL Normal 2.0-7.7 [facility] Comment on above: Performed By: #### L 501.2450, L501.4020, L500.4050, L100.0100, L700.6800 #### [facility] [address] [place], [address] Basophils/100 WBC (Bld) 0.6 % Normal 0-1 [facility] Comment on above: Performed By: #### L 501.2450, L501.4020, L500.4050, L100.0100, L700.6800 #### [facility] [address] [place], [address] Eosinophils/100 WBC (Bld) 0.6 % Normal 0-5 [facility] Comment on above: Performed By: #### L 501.2450, L501.4020, L500.4050, L100.0100, L700.6800 #### [facility] [address] [place], [address] Erythrocyte distribution width (RBC) [Ratio] 13.2 % Normal 11.6-14.6 [facility] Comment on above: Performed By: #### L 501.2450, L501.4020, L500.4050, L100.0100, L700.6800 #### [facility] [address] [place], [address] Hematocrit (Bld) [Volume fraction] 40.8 % Normal 37-47 [facility] Comment on above: Performed By: #### L 501.2450, L501.4020, L500.4050, L100.0100, L700.6800 #### [facility] [address], [address] Hemoglobin (Bld) [Mass/Vol] 13.2 g/dL Normal 12.0-15.0 [facility] Comment on above: Performed By: #### L 501.2450, L501.4020, L500.4050, L100.0100, L700.6800 #### [facility] [address] [place], [address] IG% 0.600 Normal 0.0-0.9 [facility] Comment on above: Result Comment: IG% - Immature Granulocytes (promyelocytes, myelocytes and metamyelocytes) > 1% indicates that a LEFT SHIFT is Present. Performed By: #### L 501.2450, L501.4020, L500.4050, L100.0100, L700.6800 #### [facility] [address] [place], [address] Lymphocytes/100 WBC (Bld) 20.2 % Normal 19-41 [facility] Comment on above: Performed By: #### L 501.2450, L501.4020, L500.4050, L100.0100, L700.6800 #### [facility] [address] [place], [address] MCH (RBC) [Entitic mass] 30.6 pg Normal 27.0-32.0 [facility] Comment on above: Performed By: #### L 501.2450, L501.4020, L500.4050, L100.0100, L700.6800 #### [facility] [address] [place], [address] MCHC (RBC) [Mass/Vol] 32.4 g/dL Normal 32-36 [facility] Comment on above: Performed By: #### L 501.2450, L501.4020, L500.4050, L100.0100, L700.6800 #### [facility] [address] [place], [address] MCV (RBC) [Entitic vol] 94.4 fL Normal 81-99 [facility] Comment on above: Performed By: #### L 501.2450, L501.4020, L500.4050, L100.0100, L700.6800 #### [facility] [address] [place], [address] Monocytes/100 WBC (Bld) 4.3 % Normal 0-10 [facility] Comment on above: Performed By: #### L 501.2450, L501.4020, L500.4050, L100.0100, L700.6800 #### [facility] [address] [place], [address] Neutrophils/100 WBC (Bld) 73.7 % High 47-70 [facility] Comment on above: Performed By: #### L 501.2450, L501.4020, L500.4050, L100.0100, L700.6800 #### [facility] [address] [place], [address] Nucleated RBC (Bld) [#/Vol] 0 10*3/uL Normal 0-5 [facility] Comment on above: Performed By: #### L 501.2450, L501.4020, L500.4050, L100.0100, L700.6800 #### [facility] [address] [place], [address] Platelet mean volume (Bld) [Entitic vol] 10.0 fL Normal 6.2-12.0 [facility] Comment on above: Performed By: #### L 501.2450, L501.4020, L500.4050, L100.0100, L700.6800 #### [facility] [address] [place], [address] Platelets (Bld) [#/Vol] 280 10*3/uL Normal 150-450 [facility] Comment on above: Performed By: #### L 501.2450, L501.4020, L500.4050, L100.0100, L700.6800 #### [facility] [address] [place], [address] RBC (Bld) [#/Vol] 4.32 10*6/uL Normal 4.2-5.4 [facility] Comment on above: Performed By: #### L 501.2450, L501.4020, L500.4050, L100.0100, L700.6800 #### [facility] [address] [place], [address] RDW SD 45.4 fl High 35.1-43.9 [facility] Comment on above: Performed By: #### L 501.2450, L501.4020, L500.4050, L100.0100, L700.6800 #### [facility] [address] [place], [address] WBC (Bld) [#/Vol] 7.2 10*3/uL Normal 4.4-11.0 [facility] Comment on above: Performed By: #### L 501.2450, L501.4020, L500.4050, L100.0100, L700.6800 #### [facility] [address] [place], [address] Chest PA and Lateralon 04-24 Chest PA and Lateral [facility] [address] [place] [address] Chest PA and Lateral MR#: [id number] Acct: [id number] Name: PAMELA ALEGRIA Rep #: [id number] : 2000 F 24 From: Brendan hodge MD PCP: Dr. Ishmael Vu MD Status: [facility] ER Study: Chest PA and Lateral Date of Exam: 04/24/24 Exam# [id number] Ordering Dr: [place] [id number] STUDY: X-RAY CHEST REASON FOR EXAM: Female, 24 years old. Chest pain TECHNIQUE: PA and lateral views of the chest. COMPARISON: Comparison is made with prior study February 23, 2016. FINDINGS: EKG electrodes are seen. The lungs are clear and expanded. Scattered calcified granulomas. There is no demonstrated pleural abnormality. Normal size heart. Normal mediastinum and abdiel. Normal visualized pulmonary arteries. Normal visualized aortic arch and descending thoracic aorta. Normal visualized thoracic spine. Normal visualized ribs, clavicles, and shoulders. There is no demonstrated abnormality of the visualized soft tissue structures of the upper abdomen. RAD/Chest PA and Lateral IMPRESSION: No acute abnormality is present. Electronically Signed: Brendan Adamson MD at 13:34 EDT , CC: Dr. Ishmael Vu MD; Dr. Gregory Neil DO Plate Painter Apprentice: Signed Normal [facility] Comprehensive Metabolic Prof ilon 04-24-2024 Albumin [Mass/Vol] 4.3 g/dL Normal 3.2-5.0 [facility] Comment on above: Order Comment: 'TROP ' Serial specimen #1, #2 or #3: 1 Performed By: #### L 501.2450, L501.4020, L500.4050, L100.0100, L700.6800 #### [facility] [address] [place], [address] Albumin/Globulin [Mass ratio] 1.0 {ratio} Normal 0.9-2.4 [facility] Comment on above: Order Comment: 'TROP ' Serial specimen #1, #2 or #3: 1 Performed By: #### L 501.2450, L501.4020, L500.4050, L100.0100, L700.6800 #### [facility] [address] [place], [address] ALK P 75 U/L Normal 45-117 [facility] Comment on above: Order Comment: 'TROP ' Serial specimen #1, #2 or #3: 1 Performed By: #### L 501.2450, L501.4020, L500.4050, L100.0100, L700.6800 #### [facility] [address] [place], [address] ALT [Catalytic activity/Vol] 29 U/L Normal 13-56 [facility] Comment on above: Order Comment: 'TROP ' Serial specimen #1, #2 or #3: 1 Performed By: #### L 501.2450, L501.4020, L500.4050, L100.0100, L700.6800 #### [facility] [address] [place], [address] AST [Catalytic activity/Vol] 23 U/L Normal 15-37 [facility] Comment on above: Order Comment: 'TROP ' Serial specimen #1, #2 or #3: 1 Result Comment: Mode rate Hemolysis, Result may be falsely increased. Performed By: #### L 501.2450, L501.4020, L500.4050, L100.0100, L700.6800 #### [facility] [address] [place], [address] Bilirubin [Mass/Vol] 0.50 mg/dL Normal 0.20-1.00 [facility] Comment on above: Order Comment: 'TROP ' Serial specimen #1, #2 or #3: 1 Result Comment: For patients on eltrombopag therapy, use of Dimension [place] TBIL is not recommended. Performed By: #### L 501.2450, L501.4020, L500.4050, L100.0100, L700.6800 #### [facility] [address] [place], [address] BUN/CRE 17.6 RATIO Normal 10-20 [facility] Comment on above: Order Comment: 'TROP ' Serial specimen #1, #2 or #3: 1 Performed By: #### L 501.2450, L501.4020, L500.4050, L100.0100, L700.6800 #### [facility] [address] [place], [address] CA,Total 9.6 mg/dL Normal 8.5-10.1 [facility] Comment on above: Order Comment: 'TROP ' Serial specimen #1, #2 or #3: 1 Performed By: #### L 501.2450, L501.4020, L500.4050, L100.0100, L700.6800 #### [facility] [address] [place], [address] Chloride [Moles/Vol] 106 mmol/L Normal 98-107 [facility] Comment on above: Order Comment: 'TROP ' Serial specimen #1, #2 or #3: 1 Performed By: #### L 501.2450, L501.4020, L500.4050, L100.0100, L700.6800 #### [facility] [address] [place], [address] CO2 [Moles/Vol] 25.0 mmol/L Normal 21.0-32.0 [facility] Comment on above: Order Comment: 'TROP ' Serial specimen #1, #2 or #3: 1 Performed By: #### L 501.2450, L501.4020, L500.4050, L100.0100, L700.6800 #### [facility] [address] [place], [address] Creatinine [Mass/Vol] 0.91 mg/dL Normal 0.55-1.02 [facility] Comment on above: Order Comment: 'TROP ' Serial specimen #1, #2 or #3: 1 Result Comment: The validity of the calculated GFR GFRAA in patients over 70 years has not been determined. Clinical correlation is essential. Performed By: #### L 501.2450, L501.4020, L500.4050, L100.0100, L700.6800 #### [facility] [address] [place], [address] ECRCL 103.17 ml/min Normal [facility] Comment on above: Order Comment: 'TROP ' Serial specimen #1, #2 or #3: 1 Performed By: #### L 501.2450, L501.4020, L500.4050, L100.0100, L700.6800 #### [facility] [address] [place], [address] EST GFR - AA 96 mL/min Normal >60 [facility] Comment on above: Order Comment: 'TROP ' Serial specimen #1, #2 or #3: 1 Result Comment: Afri can Danish GFR Calc Performed By: #### L 501.2450, L501.4020, L500.4050, L100.0100, L700.6800 #### [facility] [address] [place], [address] GAP 9 Normal 5-15 [facility] Comment on above: Order Comment: 'TROP ' Serial specimen #1, #2 or #3: 1 Performed By: #### L 501.2450, L501.4020, L500.4050, L100.0100, L700.6800 #### [facility] [address] [place], [address] GFR/1.73 sq M.predicted among non-blacks MDRD (S/P/Bld) [Vol rate/Area] 80 mL/min/{1.73_m2} Normal >60 [facility] Comment on above: Order Comment: 'TROP ' Serial specimen #1, #2 or #3: 1 Result Comment: Non- GFR Calc Performed By: #### L 501.2450, L501.4020, L500.4050, L100.0100, L700.6800 #### [facility] [address] [place], [address] Globulin (S) [Mass/Vol] 4.1 g/dL Normal 2.2-4.2 [facility] Comment on above: Order Comment: 'TROP ' Serial specimen #1, #2 or #3: 1 Performed By: #### L 501.2450, L501.4020, L500.4050, L100.0100, L700.6800 #### [facility] [address] [place], [address] Glucose [Mass/Vol] 123 mg/dL High 74-106 [facility] Comment on above: Order Comment: 'TROP ' Serial specimen #1, #2 or #3: 1 Result Comment: Fast ing Glucose result from 100 to 125 mg/dL suggests IMPAIRED HOMEOSTASIS per A.D.A. criteria. Performed By: #### L 501.2450, L501.4020, L500.4050, L100.0100, L700.6800 #### [facility] [address] [place], [address] Potassium [Moles/Vol] 4.0 mmol/L Normal 3.5-5.1 [facility] Comment on above: Order Comment: 'TROP ' Serial specimen #1, #2 or #3: 1 Result Comment: Mode rate Hemolysis, Result may be falsely increased. Performed By: #### L 501.2450, L501.4020, L500.4050, L100.0100, L700.6800 #### [facility] [address] [place], [address] Sodium [Moles/Vol] 140 mmol/L Normal 136-145 [facility] Comment on above: Order Comment: 'TROP ' Serial specimen #1, #2 or #3: 1 Performed By: #### L 501.2450, L501.4020, L500.4050, L100.0100, L700.6800 #### [facility] [address] [place], [address] T PROT 8.4 g/dL High 6.4-8.2 [facility] Comment on above: Order Comment: 'TROP ' Serial specimen #1, #2 or #3: 1 Performed By: #### L 501.2450, L501.4020, L500.4050, L100.0100, L700.6800 #### [facility] [address] [place], [address] Urea nitrogen [Mass/Vol] 16 mg/dL Normal 7-18 [facility] Comment on above: Order Comment: 'TROP ' Serial specimen #1, #2 or #3: 1 Performed By: #### L 501.2450, L501.4020, L500.4050, L100.0100, L700.6800 #### [facility] [address] [place], [address] Emergency Department Summary on 04-24-2024 Emergency Department Summary [facility] Medical Records Department [address] [place] [address] Emergency Department Summary 04/24/24 MR#: [id number] Acct: [id number] Name: PAMELA ALEGRIA Rep #: [id number] : 2000 24 From: Gregory Neil DO PCP: Dr. Ishmael Vu MD Status:DEP ER Location: ED HPI History of Present Illness Chief Complaint: Shortness of Breath Informant: patient Onset/Context/Timing Onset: Today Context: sudden Timing: Continuous Quality: Positive for Dyspnea on exertion Worsened by: Exertion Relieved by: Nothing Associated Symptoms Negative for cough, rhinorrhea, post nasal drip, ear pain, fever, sore throat, chills, sweats, clear sputum, white sputum, yellow sputum or green sputum Chest Pain: Positive for Pressure (Heaviness) Narrative Narrative: Patient presents with shortness of breath, dizziness, and chest pain that began this morning. Patient states she got up to go to the bathroom and was having some shortness of breath. Patient states she also feels like the room is spinning.. Patient states she was having difficulty ambulating because of this. Patient states I do not feel right. Patient admits to some nausea and vomiting. Patient also admits to some back pain. Patient denies any cough. Patient denies any fevers or chills. [facility] Medical History History of gestational hypertension Disability examination Change in bowel habit GERD (gastroesophageal reflux disease) Gastroenteritis Irritable bowel syndrome with diarrhea Anxiety and depression Seizures Acute exacerbation of chronic low back pain Insomnia Epilepsy HTN (hypertension) Headache Back problem Anxiety Abdominal pain Home Medications ???Medication ???Instructions ???Recorded ???Last Taken ???Type ibuprofen 800 mg tablet 800 mg PO TID PRN pain #30 tabs 11/16/23 Unknown Rx cariprazine 1.5 mg (1)-3 mg (6) See Rx Instructions PO .COMPLEX #7 12/15/23 Unknown Rx capsules in a dose pack caps cariprazine 3 mg capsule 3 mg PO DAILY #30 caps 12/15/23 Unknown Rx norethindrone (contraceptive) 0.35 0.35 mg PO QDAY #84 tabs 02/21/24 Unknown Rx mg tablet (Stephan) omeprazole 40 mg capsule,delayed See Rx Instructions .Route 02/24/24 Unknown Rx release .COMPLEX #90 caps sertraline 100 mg tablet 100 mg PO DAILY #90 tabs 02/24/24 Unknown Rx trazodone 50 mg tablet 50 mg PO QHS PRN insomnia #10 tabs 04/24/24 Unknown Rx Allergy/AdvReac Type Severity Reaction Status Date / Time Iodinated Contrast Media Allergy Intermediate HIVES, Verified 04/24/24 12:05 SHORT OF BREATH tramadol Allergy Intermediate itching Verified 04/24/24 12:05 codeine phosphate (From Allergy Hives Verified 04/24/24 12:05 Tylenol-Codeine #3) morphine Allergy Itching Verified 04/24/24 12:05 oxycodone HCl (From Percocet) Allergy Hives Verified 04/24/24 12:05 red dye Allergy Hives Verified 04/24/24 12:05 hydromorphone (From Dilaudid) AdvReac Itching Verified 04/24/24 12:05 Family History Mother Endometriosis Depression with anxiety Grandfather Diabetes Aunt Diabetes Grandfather Cancer unknown [place], passed of Unknown Hypertension High cholesterol Father Depression with anxiety Bipolar 1 disorder Surgical History History of laminectomy H/O laparoscopy Social History Smoking Status: Current some day smoker tobacco type: e-cigarettes Electronic Cigarette Use: with nicotine alcohol intake: never substance use type: does not use caffeine: Yes what type of physical activity do you participate in: none seatbelt use: always do you feel safe at home: Yes additional social history: Single-[facility]-House[employer] ROS ROS ED Constitutional Constitutional ED: Denies chills or fever(s) Eyes Eyes: Denies blurry vision or change in vision ENT ENT ED: Denies rhinorrhea or sore throat Cardiovascular Cardiovascular: Reports chest pain; Denies palpitations Respiratory/Chest Respiratory/Chest: Reports dyspnea; Denies cough Gastrointestinal Gastrointestinal: Reports nausea and vomiting Genitourinary Genitourinary ED: Denies dysuria or hematuria Musculoskeletal Musculoskeletal: Reports back pain; Denies neck pain Integumentary Denies abscess or rash Neurologic Neurologic: Denies headache(s) or weakness Allergic/Immunologic Allergic/Immunologic ED: Denies mouth swelling or urticaria EXAM Physical Exam Const Vital Signs: 04/24/24 12:05 04/24/24 12:10 04/24/24 14:04 Temperature 99.2 F H Temperature Source Oral Pulse Rate 80 81 Pulse Rate [Lying] Pulse Rate [Sitting (for 1 mi (more content not included)... Normal [facility] L501.4020on 04-24-2024 TROPONIN-I HS < 3 Low 3.0-54.0 [facility] Comment on above: Order Comment: 'TROP ' Serial specimen #1, #2 or #3: 1 Result Comment: Plekierra dewitt Note: New Test Units and Gender Specific Reference Ranges. For more information see Policy Stat Procedure [place] High Sensitivity Troponin (TNIH) and attachments. Performed By: #### M 100.019, L501.9100, L700.6800, L505.5000, L100.0100, L500.2500 #### [facility] [address] [place], [address] Lipaseon 04-24-2024 Lipase [Catalytic activity/Vol] 20 U/L Normal 13-75 [facility] Comment on above: Order Comment: 'TROP ' Serial specimen #1, #2 or #3: 1 Result Comment: Plea se note: LIPASE revised reference range effective 22. New Lipase methodology. Expected to produce lower values than the previous assay method. NEW Reference Range: 13 - 75 U/L Performed By: #### M 100.019, L501.9100, L700.6800, L505.5000, L100.0100, L500.2500 #### [facility] [address] [place], [address] ,Serum,hCG Quali.on 04-24-2024 HCG, SERUM QUAL Negative Normal [facility] Comment on above: Performed By: #### L 501.2450, L501.4020, L500.4050, L100.0100, L700.6800 #### [facility] [address] [place], [address] Urinalysis, Completeon 04-24 BACTERIA 2+ /hpf Normal None Seen [facility] Comment on above: Order Comment: CLEAN CATCH Performed By: #### M 100.019, L501.9100, L700.6800, L505.5000, L100.0100, L500.2500 #### [facility] [address] [place], [address] EPI,SQUAMOUS 5-10 SEEN Normal 5-10 [facility] Comment on above: Order Comment: CLEAN CATCH Performed By: #### M 100.019, L501.9100, L700.6800, L505.5000, L100.0100, L500.2500 #### [facility] [address] [place], [address] RBC 0-5 SEEN Normal 0-5 [facility] Comment on above: Order Comment: CLEAN CATCH Performed By: #### M 100.019, L501.9100, L700.6800, L505.5000, L100.0100, L500.2500 #### [facility] [address] [place], [address] WBC 0-5 SEEN Normal 0-5 [facility] Comment on above: Order Comment: CLEAN CATCH Performed By: #### M 100.019, L501.9100, L700.6800, L505.5000, L100.0100, L500.2500 #### [facility] [address] [place], [address] Mucus Ql (Urine sed) 0 SEEN Normal [facility] Comment on above: Order Comment: CLEAN CATCH Performed By: #### M 100.019, L501.9100, L700.6800, L505.5000, L100.0100, L500.2500 #### [facility] [address] [place], [address] Overlock Waistline Joiner Office Visit Reporton 02-21-2024 Overlock Waistline Joiner Office Visit Report [facility] [place] [address] [place], [place] [address] OFFICE VISIT Date of Service: 02/21/24 MR#: [id number] Acct: [id number] Name: PAMELA ALEGRIA Rep #: [id number] : 2000 Provider: UZMA harrison Age/Sex: 24/F Location: [facility] Status: Signed Intake Vital Signs 01/17/24 10:15 02/21/24 10:21 02/21/24 10:25 Height 5 ft 3 in 5 ft 3 in 5 ft 3 in Weight: 208 lb 4 oz BMI 36.8 BP 117/73 Intake Visit Reasons: BC FOLLOW UP Chief Complaint: BC F/U Service Greeter Required: No Is patient in pain?: No Allergies Iodinated Contrast Media Allergy (Intermediate, Verified 02/21/24 10:20) HIVES, SHORT OF BREATH tramadol Allergy (Intermediate, Verified 02/21/24 10:20) itching codeine phosphate (From Tylenol-Codeine #3) Allergy (Verified 02/21/24 10:20) Hives morphine Allergy (Verified 02/21/24 10:20) Itching oxycodone HCl (From Percocet) Allergy (Verified 02/21/24 10:20) Hives red dye Allergy (Verified 02/21/24 10:20) Hives hydromorphone (From Dilaudid) Adverse Reaction (Verified 02/21/24 10:20) Itching Medications ???Medication ???Instructions ???Recorded ???Confirmed ???Type sertraline 100 mg tablet 100 mg PO DAILY #90 tabs 11/03/23 02/21/24 Rx ibuprofen 800 mg tablet 800 mg PO TID PRN pain #30 tabs 11/16/23 02/21/24 Rx omeprazole 40 mg capsule,delayed See Rx Instructions .Route 12/06/23 02/21/24 Rx release .COMPLEX #90 caps cariprazine 1.5 mg (1)-3 mg (6) See Rx Instructions PO .COMPLEX #7 12/15/23 02/21/24 Rx capsules in a dose pack caps cariprazine 3 mg capsule 3 mg PO DAILY #30 caps 12/15/23 02/21/24 Rx norethindrone (contraceptive) 0.35 0.35 mg PO QDAY #84 tabs 02/21/24 02/21/24 Rx mg tablet (Stephan) Is last menstrual period known: No Post menopausal: No Patient : No : No Control Method: OCP Nurse's Note: No menses; takes OCP continuously. [facility] Medical History (Updated 02/21/24 @ 10:32 by Abbey Noble NP, [facility]ERCER-C) History of gestational hypertension Disability examination Change in bowel habit GERD (gastroesophageal reflux disease) Gastroenteritis Irritable bowel syndrome with diarrhea Anxiety and depression Seizures Acute exacerbation of chronic low back pain Insomnia Epilepsy HTN (hypertension) Headache Back problem Anxiety Abdominal pain Surgical History History of laminectomy H/O laparoscopy Family History Mother Endometriosis Depression with anxiety Grandfather Diabetes Aunt Diabetes Grandfather Cancer unknown [place], passed of Unknown Hypertension High cholesterol Father Depression with anxiety Bipolar 1 disorder Social History Smoking Status: Heavy Smoker (>10/day) Electronic Cigarette Use: with nicotine alcohol intake: never substance use type: does not use caffeine: Yes what type of physical activity do you participate in: none seatbelt use: always do you feel safe at home: Yes additional social history: Single-[facility] HPI BC FOLLOW UP Details: PAMELA ALEGRIA is a 24 year old who presents for 3 month follow up start of stephan progesterone OCP. States she has had a couple of days of very light spotting but no menses. Very happy with this contraception and wishes to continue. Same sexual partner and declines need for STD evaluation. Denies any concerns History 0 Elective abortions Hx Para Spontaneous abortions Hx # Term Pregnancies Ectopic pregnancies Hx # Pregnancies Multiple births # of living children ROS Const Constitutional: Reports system reviewed and no additional complaints, except as documented Eyes Eyes: Reports system reviewed and no additional complaints, except as documented GI GI: Denies abdominal pain or change in bowel habits : Reports as per HPI Exam Const General: cooperative and no acute distress Orientation: oriented x3 HENMT Head: normal to inspection and normocephalic Eyes General: appearance normal, both eyes and all related structures Neck Neck: normal visual inspection Resp Effort Inspection: normal respiratory effort Neuro Cognition: normal cognition Speech: speech normal Psych Appearance: grossly normal Mood: congruent mood Affect: normal affect Speech and Movement: speech and movement normal Attitude: cooperative Judgment: judgment good Coding Level of Care Code Off vis,est,level 2 Diagnoses Irregular menses N92.6 Assessment and Plan Assessment and Plan (1) Irregular menses: Status: Acute Medications: Refilled norethindrone (contrac (more content not included)... Normal [facility] OT FCE D/C Summaryon 024 OT FCE D/C Summary [facility] Occup[facility] [address] [place] [address] [address] [place] [address] / REHABILITATION SERVICES DISCHARGE SUMMARY MR#: [id number] Acct: [id number] Name: PAMELA ALEGRIA Rep #: [id number] : 2000 23 From: Dian NIETO/Supa, CHT Referring Dr.: Dr. Ishmael Vu MD Status: REG RCR Eval Date: Discharge Date: FCE D/C Summary Discharge text: PAMELA ALEGRIA was seen for a one time visit for an FCE on 01/17/24 and is discharged. 01/25/24 1643 CC: Dr. Ishmael Vu MD MK Signed Normal [facility] OT Functional Capacity Evalo n 01-25-2024 OT Functional Capacity Eval [facility] [address] [place] [address] / REHABILITATION SERVICES INITIAL EVALUATION MR#: [id number] Acct: [id number] Name: PAMELA ALEGRIA Rep #: [id number] : 2000 23 From: Dian Woodson OTR/L, CHT Referring Dr.: Dr. Ishmael Vu MD Status: REG RCR Insurance: [facility] Hospital Date: SELF PAY INSURANCE Task Lift Floor PDL: No Ability Knee PDL: No Ability Waist PDL: Sedentary Shoulder PDL: No Ability Overhead PDL: No Ability Work Activity/Posture Bending: Occasional Ability (1-33% of day) Comments: with use of external support low occasional ability Squatting: Occasional Ability (1-33% of day) Comments: with use of external support low occasional ability Kneeling: Occasional Ability (1-33% of day) Reaching out: Occasional Ability (1-33% of day) Comments: while sitting Reaching up: Occasional Ability (1-33% of day) Comments: while sitting Sitting: No Ablility (0% of day) Walking: Occasional Ability (1-33% of day) Standing: Occasional Ability (1-33% of day) Reference Reference: Duration Sedentary Sedentary Light Light Light Medium Medium Medium Heavy Very Heavy Heavy Occasional (0-33% of day) Frequent (34-66% of day) Constant (67-100% of day) 10 # Negligible Negligible 15 # 8 # Negligible 20 # 10# Negli. 35 # 18 # 7 # 50 # 25 # 10 # 75 # 100 # >100 # 38 # 50 # >50 # 15 # 20 # >20 # Patient Information Height: 1.6 m Weight:: 72.575 kg Hand Dominance: right Medical History Medical History Including Restrictions: Pt states she had increase back pain since she was [age] years old. Pt states pain continued to get worse. pt states she was seeing a chiropractor in [id number] pt states she would see him every day and sometimes more. pt states she went to see Dr. King for pain mtg. Pt states she had 8 spine injections. pt states she started to reject the injections. Last she did see him was November of 2022 Pt went to [address] Dr[address] Yaya Vallejo this did MRI and X-ray ( done in 2022) Pt underwent laminectomy 2022. Pt states right after surgery she did not have pain and noticed her pain increased over the weeks and months. Pt states she underwent 8 weeks of Physical therapy but due to increase pain she was unable to participate in therapy ( about 5 weeks having therapy). pt at 4 months out from surgery: pt states her surgeon will not do surgery due to she is still healing pt states she does not exercise on a regular basis. pt states she had a still in 2020 # pt states does not want her to lift anything over 50# Diagnoses Diagnoses: DDD ( dx 2020) Fibromyalgia (dx 2021) Scoliosis (dx 2020) Disc herniation Leaning disorders Comprehension disorder Symptoms Symptoms: incontinences feeling of nausea Pain weakness right leg weakness Pain Pain: pt states she takes 800 Mg of Ibphriprohin ( just 1 x a day) sleeps with pillow between legs at night. pt states she has a burning sensation all the time. pt states she thinks she remembers in PT using tens unit- pts reported pain Work History Work History: Pt states she was employed at [employer] pt states she was only employed for about 8 weeks due to her limited ability to perform the job duties. 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 pt states she works about 2 hours pt states she worked at [employer] for three months- pt states she was required to stand and she was unable to perform her job duties. 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 Behavioral Behavioral: pt demo with flat affect and verbalizes discomfort with all movement. ADLS ADLS: Pt states she lives with her Grandparents in a two story home, no steps for entry. pts bedroom and bathroom is on the 2nd floor (pt states about 10 steps with handrail on the right side) Bathroom is a walk in shower on 2nd floor. Does use a shower chair. pt states she Drives Ind. pt states laundry she folds and puts away her clothes ( her grandmother will do her laundry for her and carry it to her room) pt states she tries to cook- will put items in the oven as she can not stand for cooking. pt states with shopping she does use a scooter to get around the store. pt states she can not bush jeans- has to wear leggings or sweat pants- states she can not get the up. Physical Examination ROM: pt demo with limited lumbar flexion due to pain. pt demo all other ROM WFL Strength: Fet2 peak force comparing right to left Shoulder flexion right 9# left 6# shoulder extension right 9# left 18# Biceps right 15.3# left 17.4# triceps right 12# left 19# Hi (more content not included)... [address] 12-15-2023 36 LETICIA has been faxed t o the number provided. [address] 12-13-2023 36 Pt aware no orders c an be completed until care is established. Please fax a blank LETICIA to [phone] [facility] 36 Name of caller: Millie or Contact phone number: [phone] Relationship to Patient: Patient Provider: Practice: 05/21/24 Chief Complaint/Reason for Call: Patient called in regarding records. Patient stated she contacted her old Doctors office () and they are needing a LETICIA form sent for her to sign. Patient stated they need one in order to send her records over. Patient stated the fax needs to go to [facility] at F: [phone]. Patient stated she would like to know if would also fill her medication once records are sent over. Please advise. Best time of day caller can be reached: Any Patient advised that office/PCP has 24-48 business hours to return their call: Yes [facility] Internal Medicine Office Vis waqas 12-08-2023 Internal Medicine Office Visit [facility] [address] [place] [address] [address] [place] [address] OFFICE VISIT Date of Service: 12/08/23 MR#: [id number] Acct: [id number] Name: PAMELA ALEGRIA Rep #: [id number] : 2000 Provider: UZMA bella Age/Sex: 23/F Location: [facility] Status: Signed Intake Vital Signs 11/16/23 10:30 12/08/23 09:37 Height 5 ft 3 in 5 ft 3 in Weight: 201 lb 201 lb BMI 35.6 35.6 BP 130/88 H 110/80 Blood Pressure Location Lt brachial Lt brachial Position Sitting Sitting Respiration 17 14 Pulse 76 86 Pulse Source Monitor Monitor Temp 98.0 F 97.1 F L Temp Source Temporal Temporal Pulse Oximetry (%) 98 98 Oxygen Delivery Method room air room air Intake Visit Reasons: acute - discuss meds Service Greeter Required: No Is patient in pain?: No Allergies Iodinated Contrast Media Allergy (Intermediate, Verified 12/08/23 09:33) HIVES, SHORT OF BREATH tramadol Allergy (Intermediate, Verified 12/08/23 09:36) itching codeine phosphate (From Tylenol-Codeine #3) Allergy (Verified 12/08/23 09:33) Hives morphine Allergy (Verified 12/08/23 09:33) Itching oxycodone HCl (From Percocet) Allergy (Verified 12/08/23 09:33) Hives red dye Allergy (Verified 12/08/23 09:33) Hives hydromorphone (From Dilaudid) Adverse Reaction (Verified 12/08/23 09:33) Itching Medications ???Medication ???Instructions ???Recorded ???Confirmed ???Type norethindrone (contraceptive) 0.35 0.35 mg PO QDAY #28 tabs 09/27/23 12/08/23 Rx mg tablet (Stephan) sertraline 100 mg tablet 100 mg PO DAILY #90 tabs 11/03/23 12/08/23 Rx ibuprofen 800 mg tablet 800 mg PO TID PRN pain #30 tabs 11/16/23 12/08/23 Rx omeprazole 40 mg capsule,delayed See Rx Instructions .Route 12/06/23 12/08/23 Rx release .COMPLEX #90 caps lurasidone 20 mg tablet (Latuda) 20 mg PO QPM #30 tabs 12/08/23 12/08/23 Rx Nurse's Note: Needs bp pill. States she has been having bad manic episodes has been bad the past couple of days. States she had a mental break, sx's include going nut's unable to explain crying, yelling locking herself in room. See's counselor. [facility] Medical History Abdominal discomfort Abdominal pain Acute exacerbation of chronic low back pain Anxiety Anxiety and depression Back problem Change in bowel habit Depression Epilepsy Flu vaccine need Gastroenteritis GERD (gastroesophageal reflux disease) Headache HTN (hypertension) Insomnia Irritable bowel syndrome with diarrhea Nausea and vomiting Seizures Surgical History H/O laparoscopy History of laminectomy Family History Mother Endometriosis Depression with anxiety Grandfather Diabetes Aunt Diabetes Grandfather Cancer unknown CA, passed of Unknown Hypertension High cholesterol Father Depression with anxiety Bipolar 1 disorder Social History Smoking Status: Heavy Smoker (>10/day) Electronic Cigarette Use: with nicotine alcohol intake: never substance use type: does not use caffeine: Yes what type of physical activity do you participate in: none seatbelt use: always do you feel safe at home: Yes additional social history: [facility] HPI HPI Details: PAMELA ALEGRIA, is a 23 F who presents to the office today for an acute visit to discuss medications. Recently, patient reports she has been feeling very down for the past 3 to 5 days. She states she has a history of bipolar disorder during childhood and has required inpatient psychiatric hospitaliz ations in the past. She states in her teenage years she was on multiple medications including Lamictal, Seroquel and Abilify she states over the past year she has only been on zoloft. She also states she took Vyvanse in the past for ADHD. In the past few months she has had episodes of major depression lasting at least 1-2 weeks at a time and occurring once per month. She reports during these episodes she feels very down, sleeps a lot, is very irritable and snaps at she feels exhausted. She states that she does not have high/manic episodes or symptoms. Denies manic type episodes such as spending, pressured speech, flight of ideas, excessive energy or risky behaviors. She reports she also has difficulty sleeping and sleeps on average 3 to 5 hours per night as she cannot control her racing thoughts. She has flashbacks of incidents from a few years ago. She does see a local counselor once per week however she thinks that counseling makes symptoms worse. She reports she lives with her grandparents and has a safe home environment and has a good relationship with her boyfriend. She (more content not included)... Normal [facility] 36on 11-21-2023 36 Pt is not under any restrictions from a spine standpoint. [facility] 36 Pt called stating th at she needs a dated letter/ list of restrictions sent to [facility] at [phone]. Please advise. [facility] Absolute lymphocyte countOrd ered By: Aki Butlermarshal on 11-02-2023 Lymphocytes Auto (Unsp spec) [#/Vol] 2.61 10*3/uL 0.83-4.51 [facility] Automated lymphocyte count a s percentage of total leukocytesOrdered By: Aki Kenyon on 11-02-2023 Lymphocytes/100 WBC Auto (Unsp spec) 31.9 % 19-41 [facility] Basophil percentageOrdered B y: Aki Carriemarshal on 11-02-2023 Basophils/100 WBC (Bld) 0.6 % 0-1 [facility] Chloride [Moles/Vol] 106 mmol/L 98-[address] [facility] [address] [facility] Eosinophils/100 WBC (Bld) 1.1 % 0-5 [facility] Glucose [Mass/Vol] 97 mg/dL 74-106 [facility] Hemoglobin (Bld) [Mass/Vol] 13.5 g/dL 12.0-15.0 [facility] Monocytes/100 WBC (Bld) 7.1 % 0-10 [facility] Neutrophils (Bld) [#/Vol] 4.8 10*3/uL 2.0-7.7 [facility] Neutrophils/100 WBC (Bld) 58.8 % 47-70 [facility] Potassium [Moles/Vol] 3.6 mmol/L 3.5-5.1 [facility] Sodium [Moles/Vol] 139 mmol/L 136-145 [facility] WBC (Bld) [#/Vol] 8.2 10*3/uL 4.4-11.0 [facility] Basophil percentage 0-5 SEEN /hpf 0-5 [facility] Bilirubin Test strip Ql (U)O rdered By: Aki Kenyon on 11-02-2023 Bilirubin Ql (U) Negative Negative [facility] Determination of erythrocyte mean corpuscular volume (MCV)Ordered By: Aki Kenyon on 11-02-2023 MCV (RBC) [Entitic vol] 92.4 fL 81-99 [facility] Erythrocyte distribution wid th ratioOrdered By: Aki Kenyon on 11-02-2023 Erythrocyte distribution width (RBC) [Ratio] 14.1 % 11.6-14.6 [facility] Erythrocyte distribution wid th standard deviationOrdered By: Aki Kenyon on 11-02-2023 Erythrocyte distribution width (RBC) [Entitic vol] 48.1 fL 35.1-43.9 [facility] Hematocrit Auto (Bld) [Volum e fraction]Ordered By: Aki Kenyon on 11-02-2023 Hematocrit (Bld) [Volume fraction] 41.6 % 37-47 [facility] Immature granulocytes/100 WB C Auto (Bld)Ordered By: Aki Kenyon on 11-02-2023 Immature granulocytes/100 WBC (Bld) 0.500 % 0.0-0.9 [facility] Comment on above: IG% - Immature Granu locytes (promyelocytes, myelocytes and metamyelocytes) > 1% indicates that a LEFT SHIFT is Present. Ketones Test strip Ql (U)Ord ered By: Aki Kenyon on 11-02-2023 Ketones Ql (U) Negative Negative [facility] Laboratory - Chemistry and C hemistry - challengeOrdered By: Aki Kenyon on 11-02-2023 CO2 [Moles/Vol] 26.0 mmol/L 21.0-32.0 [facility] Urea nitrogen/Creatinine [Mass ratio] 20.8 mg/mg 10-20 [facility] - Hematology and Cell countsOrdered By: Aki Kenyon on 11-02-2023 MCH (RBC) [Entitic mass] 30.0 pg 27.0-32.0 [facility] MCHC (RBC) [Mass/Vol] 32.5 g/dL 32-36 [facility] Nucleated RBC/100 WBC (Bld) [Ratio] 0 % 0-5 [facility] Platelet mean volume (Bld) [Entitic vol] 9.8 fL 6.2-12.0 [facility] Platelets (Bld) [#/Vol] 284 10*3/uL 150-450 [facility] Mucus LM Ql (Urine sed)Order ed By: Aki Kenyon on 11-02-2023 Mucus Ql (Urine sed) 0 SEEN /hpf [facility] Nitrite Test strip Ql (U)Ord ered By: Aki Kenyon on 11-02-2023 Nitrite Ql (U) Negative Negative [facility] No Panel InformationOrdered By: Aki Kenyon on 11-02-2023 Estimated Creatinine Clearance Calc 118.84 ml/min [facility] Estimated GFR (MDRD) Amer 117 mL/min >60 [facility] Comment on above: GFR Calc Estimated GFR (MDRD) Non-Af Amer 97 mL/min >60 [facility] Comment on above: Non- GFR Calc Urine RBC 0-5 SEEN /hpf 0-5 [facility] Protein Test strip Ql (U)Ord ered By: Aki Kenyon on 11-02-2023 Protein Ql (U) 15 mg/dl Negative [facility] RBC Auto (Bld) [#/Vol]Ordere d By: Aki Kenyon on 11-02-2023 RBC (Bld) [#/Vol] 4.50 10*6/uL 4.2-5.4 [facility] Serum or plasma calcium fabio urement (mass/volume)Ordered By: Aki Kenyon on 11-02-2023 Calcium [Mass/Vol] 9.7 mg/dL 8.5-10.1 [facility] Serum or plasma choriogonado tropin detectionOrdered By: Aki Kenyon on 11-02-2023 HCG ( test) Ql Negative [facility] Serum or plasma creatinine m easurement (mass/volume)Ordered By: Aki Kenyon on 11-02-2023 Creatinine [Mass/Vol] 0.77 mg/dL 0.55-1.02 [facility] Comment on above: The validity of the calculated GFR & GFRAA in patients over 70 years has not been determined. Clinical correlation is essential. Serum or plasma urea nitroge n measurement (mass/volume)Ordered By: Aki Kenyon on 11-02-2023 Urea nitrogen [Mass/Vol] 16 mg/dL 7-18 [facility] Squamous epithelial cells de tection in urine sediment by light microscopyOrdered By: Aki Kenyon on 11-02-2023 Epithelial cells.squamous LM Ql (Urine sed) 0-5 SEEN /hpf - [facility] Thin prep Papanicolaou smear with manual screeningOrdered By: Aki Kenyon on 11-02-2023 Thin prep Papanicolaou smear with manual screening 7 - [facility] Urine blood detectionOrdered By: Aki Kenyon on 11-02-2023 RBC Ql (U) 10 /ul Negative [facility] Urine clarityOrdered By: Amanda Kenyon on 11-02-2023 Clarity (U) Clear Clear [facility] Urine color determinationOrd ered By: Aki Kenyon on 11-02-2023 Color (U) Yellow Yellow [facility] Urine glucose detectionOrder ed By: Aki Kenyon on 11-02-2023 Glucose Ql (U) Normal mg/dl Normal [facility] Urine leukocyte esterase det ection by dipstickOrdered By: Aki Kenyon on 11-02-2023 Leukocyte esterase Test strip Ql (U) Negative Negative [facility] Urine pHOrdered By: Aki valderrama on 11-02-2023 pH (U) 6.5 [pH] 5.0 - 8.0 [facility] Urine sediment bacteria coun t by microscopy (number/high power field)Ordered By: Aki Kenyon on 11-02-2023 Bacteria LM.HPF (Urine sed) [#/Area] 1 /[HPF] None Seen [facility] Urine specific gravity measu rementOrdered By: Aki Kenyon on 11-02-2023 Specific gravity (U) [Rel density] 1.020 1.002-1.030 [facility] Urine urobilinogen measureme ntOrdered By: Aki Kenyon on 11-02-2023 Urobilinogen Ql (U) Normal mg/dl Normal [facility] Progress Noteon 10-10-2023 Progress Note [facility] [address] [place] [address] Dept: [phone] Dept Patient was seen today via Telehealth by agreement and consent. I used the following Telehealth technology: Audio capability only. Patient location: Patient Location: Home. The patient has been advised of the potential risks and limitations of this mode of treatment (including but not limited to the absence of in-person examination) and has agreed to be treated in a remote fashion in spite of them. I spent 21 minutes on the phone with this patient in addition to imaging review. Any and all of the patient's/patient's family's questions on this issue have been answered and I have made no promises or guarantees to the patient. The patient has also been advised to contact this office for worsening conditions or problems, and seek emergency medical treatment and/or call 911 if the patient deems either necessary. The patient stated that they are currently in the [facility]. If the patient is a minor, permission has been obtained by the parent or guardian for the patient to receive medical care at this visit. Chief Complaint Patient presents with Follow-up MRI review Subjective Current symptoms: Low back pain radiating down the anterior right thigh Intermittent tinging, not since Tuesday Right leg weakness Urinary incontinence Changes since last visit: MRI Aggravating factors: standing and walking Alleviating Factors: Laying down Current Treatment: Ibuprofen/tylenol Tobacco Use: Low Risk (10/04/2023) Patient History Smoking Tobacco Use: Never Smokeless Tobacco Use: Never Passive Exposure: Not on file Objective This was a virtual visit appointment. No vitals or in person physical exam obtained. Labs Lab Results Component Value Date HGBA1C 5.1 07/28/2022 Lab Results Component Value Date CREATININE 0.65 07/28/2022 Imaging Images reviewed with patient today Lumbar MRI 10/06/23 Findings: Multiplanar multisequence high field strength MRI images were obtained through the lumbar spine pre and post administration of intravenous gadolinium contrast. Five lumbar type vertebra are assumed for purposes of numbering on this examination. The lumbar spine is in normal overall alignment without evidence of spondylolisthesis. Postoperative changes of L5-S1 right-sided laminectomy. No abnormal postcontrast enhancement. L5-S1 intervertebral disc space narrowing, slightly increased compared to the prior exam. Additional new mild reactive endplate changes/edema, which are new compared to the prior exam. The remaining intervertebral disc spaces are maintained. The remaining bone marrow signal intensity is preserved. The conus terminates at a normal L1 level. No abnormal signal is appreciated within the distal cord. T12-L1: No disc bulge or disc protrusion. No central spinal canal stenosis. No neural foraminal narrowing. L1-L2: No disc bulge or disc protrusion. No central spinal canal stenosis. No neural foraminal narrowing. L2-L3: No disc bulge or disc protrusion. No central spinal canal stenosis. No neural foraminal narrowing. L3-L4: No disc bulge or disc protrusion. No central spinal canal stenosis. No neural foraminal narrowing. L4-L5: No disc bulge or disc protrusion. No central spinal canal stenosis. No neural foraminal narrowing. L5-S1: Asymmetric to the right, there is a tiny disc osteophyte complex, new compared to the prior exam, which abuts the exiting nerve root of the slightly narrowed right lateral recess. Otherwise the central canal and neural foramina are patent. IMPRESSION: Impression: 1. At L5-S1, there is a new tiny disc osteophyte complex asymmetric to the right which abuts the exiting nerve root of the slightly narrowed right lateral recess. 2. L5-S1 intervertebral disc space narrowing, slightly increased compared to the prior exam. Additional new mild reactive endplate changes/edema, which are new compared to the prior exam. All documented radiology studies listed above were individually reviewed, interpreted (agree with radiology report unless noted below) and discussed with the patient during today's office visit. Lumbar MRI reviewed which does not reveal any high-grade stenosis. Assessment 23-year-old female with lower back pain and radiculitis Plan MRI reviewed, see above. No high-grade compression. Unsure of the symptom etiology of the patient. We reviewed options with respect oral medication, injections and spinal cord stimulator. She would like to retrial gabapentin to see how her symptoms improve, which I think is reasonable. Prescription sent to her pharmacy. Electronically signed by Toni Vallejo MD 10/10/2023 at 3:38 PM Please note that portions of this note may have been completed with voice recognition software. Documentation reviewed prior to signing but min (more content not included)... Normal [facility] MR Lumbar spine WO and W con trast Gavin 10-06-2023 Impression: 1. At L5-S1, there is a new tiny disc osteophyte complex asymmetric to the right which abuts the exiting nerve root of the slightly narrowed right lateral recess. 2. L5-S1 intervertebral disc space narrowing, slightly increased compared to the prior exam. Additional new mild reactive endplate changes/edema, which are new compared to the prior exam. Report Dictated on Electronically Signed By: Celso Box MD Electronically Signed Date/Time: 10/06/2023 9:42 AM [facility] Patient Name: [facility]AMEL[facility]RIA [facility] 2000 [id number] Exam Date/Time: 10/06/2023 08:38 Procedure: MR LUMBAR SPINE W AND WO CONTRAST Ordering Provider: LEWIS SUSAN Reason For Exam: Low back pain, cauda equina syndrome suspected Examination: MRI lumbar spine Clinical Indication: Low back pain, cauda equina syndrome suspected Comparison: January 05, 2023 Findings: Multiplanar multisequence high field strength MRI images were obtained through the lumbar spine pre and post administration of intravenous gadolinium contrast. Five lumbar type vertebra are assumed for purposes of numbering on this examination. The lumbar spine is in normal overall alignment without evidence of spondylolisthesis. Postoperative changes of L5-S1 right-sided laminectomy. No abnormal postcontrast enhancement. L5-S1 intervertebral disc space narrowing, slightly increased compared to the prior exam. Additional new mild reactive endplate changes/edema, which are new compared to the prior exam. The remaining intervertebral disc spaces are maintained. The remaining bone marrow signal intensity is preserved. The conus terminates at a normal L1 level. No abnormal signal is appreciated within the distal cord. T12-L1: No disc bulge or disc protrusion. No central spinal canal stenosis. No neural foraminal narrowing. L1-L2: No disc bulge or disc protrusion. No central spinal canal stenosis. No neural foraminal narrowing. L2-L3: No disc bulge or disc protrusion. No central spinal canal stenosis. No neural foraminal narrowing. L3-L4: No disc bulge or disc protrusion. No central spinal canal stenosis. No neural foraminal narrowing. L4-L5: No disc bulge or disc protrusion. No central spinal canal stenosis. No neural foraminal narrowing. L5-S1: Asymmetric to the right, there is a tiny disc osteophyte complex, new compared to the prior exam, which abuts the exiting nerve root of the slightly narrowed right lateral recess. Otherwise the central canal and neural foramina are patent. [facility] Celso Box MD - 10/06/2023 Patient Name: PAMELA ALEGRIA : 2000 Exam Date/Time: 10/06/2023 08:38 Procedure: MR LUMBAR SPINE W AND WO CONTRAST Ordering Provider: LEWIS SUSAN Reason For Exam: Low back pain, cauda equina syndrome suspected Examination: MRI lumbar spine Clinical Indication: Low back pain, cauda equina syndrome suspected Comparison: January 05, 2023 Findings: Multiplanar multisequence high field strength MRI images were obtained through the lumbar spine pre and post administration of intravenous gadolinium contrast. Five lumbar type vertebra are assumed for purposes of numbering on this examination. The lumbar spine is in normal overall alignment without evidence of spondylolisthesis. Postoperative changes of L5-S1 right-sided laminectomy. No abnormal postcontrast enhancement. L5-S1 intervertebral disc space narrowing, slightly increased compared to the prior exam. Additional new mild reactive endplate changes/edema, which are new compared to the prior exam. The remaining intervertebral disc spaces are maintained. The remaining bone marrow signal intensity is preserved. The conus terminates at a normal L1 level. No abnormal signal is appreciated within the distal cord. T12-L1: No disc bulge or disc protrusion. No central spinal canal stenosis. No neural foraminal narrowing. L1-L2: No disc bulge or disc protrusion. No central spinal canal stenosis. No neural foraminal narrowing. L2-L3: No disc bulge or disc protrusion. No central spinal canal stenosis. No neural foraminal narrowing. L3-L4: No disc bulge or disc protrusion. No central spinal canal stenosis. No neural foraminal narrowing. L4-L5: No disc bulge or disc protrusion. No central spinal canal stenosis. No neural foraminal narrowing. L5-S1: Asymmetric to the right, there is a tiny disc osteophyte complex, new compared to the prior exam, which abuts the exiting nerve root of the slightly narrowed right lateral recess. Otherwise the central canal and neural foramina are patent. IMPRESSION: Impression: 1. At L5-S1, there is a new tiny disc osteophyte complex asymmetric to the right which abuts the exiting nerve root of the slightly narrowed right lateral recess. 2. L5-S1 intervertebral disc space narrowing, slightly increased compared to the prior exam. Additional new mild reactive endplate changes/edema, which are new compared to the prior exam. Report Dictated on Electronically Signed By: Celso Box MD Electronically Signed Date/Time: 10/06/2023 9:42 AM EDT [facility] Radiology Study observation (narrative) [facility] He alth MR Lumbar spine WO and W con trast IVOrdered By: Celso Box on 10-06-2023 [facility] Work Phone: Office Visiton 10-04-2023 Follow-up visit [id number] Pamela Alegria 2000 F Date Provider Department Center 10/04/2023 [id number] [facility] OR None No family history on file Level of Service:12097 NC OFFICE/OUTPATIENT ESTABLISHED LOW MDM 20 MIN Reason for Visit and Comments: Follow-up [366615] Back Pain [12] Leg Pain [522309] [facility] PATINSon 10-04-2023 PATINS We will call you wit h MRI time/date/location once approved and scheduled. Dr. Vallejo will call you with the results. [facility] Progress Noteon 10-04-2023 Progress Note [facility] [address] [facility] [address] Dept: [phone] Dept Pamela Alegria 2000 [id number] 10/04/2023 Problem List: MIS Right L5-S1 Laminectomy DOS 09/14/22; Dr. Vallejo Lumbar pain Lumbar radiculopathy, right Urinary incontinence Diagnoses: (M54.50) Lumbar pain (M54.16) Lumbar radiculopathy (R32) Urinary incontinence, unspecified type Chief Complaint Patient presents with Follow-up Back Pain Leg Pain HPI: Pamela is a 23 y.o. female who is here today for: right leg pain Current symptoms: Low back pain radiating down the anterior right thigh Intermittent tinging, not since Tuesday Right leg weakness Urinary incontinence Changes since last visit: Worsening right leg pain and swelling started a few weeks ago, went to [facility] 09/28/23; no injury/activity known Has not done PT Aggravating factors: standing and walking Alleviating Factors: Laying down Current Treatment: Ibuprofen/tylenol Review of Systems Musculoskeletal: Positive for arthralgias, back pain, gait problem and myalgias. Neurological: Positive for weakness and numbness. Allergies Allergen Reactions Codeine Hives Dilaudid [Hydromorphone] hives Morphine Hives and Itching Oxycodone-Acetaminophen Hives Red Dye Hives Current Outpatient Medications Medication Sig Dispense Refill gabapentin (Neurontin) 300 MG capsule Take 1 capsule (300 mg) by mouth 3 times daily. 90 capsule 0 methocarbamol (Robaxin) 750 MG tablet Take 1 tablet (750 mg) by mouth Nightly. (Patient not taking: Reported on 02/23/2023) 30 tablet 0 methylPREDNISolone (Medrol Dospak) 4 MG tablets Take by mouth as directed by package instructions (Patient not taking: Reported on 02/23/2023) 21 tablet 0 omeprazole (PriLOSEC) [address] capsule Take 40 mg by mouth daily. predniSONE (Deltasone) 20 MG tablet Take 40 mg by mouth daily. sertraline (Zoloft) 100 MG tablet Take 100 mg by mouth daily. No current facility-administered medications for this visit. Past Medical History: Diagnosis Date Anxiety Depression Epilepsy (HCC) Seizures (HCC) Past Surgical History: Procedure Laterality Date [...] No family history on file. Physical Exam: There were no vitals taken for this visit. SPINE/EXTREMITY: General: Patient is in no apparent distress. Gait is slightly antalgic, nonassisted. She is able to go up on her toes and back on her heels in a standing position. Mild tenderness to palpation of lumbar spine. Posterior incision well-healed. Lower Extremity Motor: HF Q TA EHL Peroneals GSC Right 4+ 5 5 5 5 5 Left 5 5 5 5 5 5 Lower extremity sensation to light touch: L2 L3 L4 L5 S1 Right Intact Decreased Intact Intact Intact Left Intact Intact Intact Intact Intact Lower extremity reflexes: Patellar Achilles Right 1+ 1+ Left 1+ 1+ Straight leg raise: Right Negative Left Negative Misc: Clonus Right None Left None Hip exam: Bilateral hip range of motion is full and symmetric without pain. Radiographic findings: Radiographs: Lumbar Spine: Date: 10/04/23 Views: 4 views (ap/lat/flex/ext) Findings: There is no aortic calcification noted. The bilateral hip joint spaces are observed with no significant degenerative changes noted. The bilateral SI joints are also observed with no significant degenerative changes noted. Mild dextroscoliosis. There is no loss of lumbar lordosis. There are five non rib-bearing lumbar vertebrae. Vertebral body heights maintained throughout the lumbar spine. There is no acute fracture or bony abnormality noted. Mild degenerative disc disease. There are mild spondylitic changes and facet arthropathy noted. There is no listhesis noted on flexion (more content not included)... [facility] XR LUMBAR SPINE 4-5 VIEWon 0 10-04-2023 XR LUMBAR SPINE 4-5 VIEW There is no aortic calcification noted. The bilateral hip joint spaces are observed with no significant degenerative changes noted. The bilateral SI joints are also observed with no significant degenerative changes noted. Mild dextroscoliosis. There is no loss of lumbar lordosis. There are five non rib-bearing lumbar vertebrae. Vertebral body heights maintained throughout the lumbar spine. There is no acute fracture or bony abnormality noted. Mild degenerative disc disease. There are mild spondylitic changes and facet arthropathy noted. There is no listhesis noted on flexion/extension radiographs. [facility] 36on 10-03-2023 36 We can discuss this at her appointment tomorrow. [facility] 36on 09-30-2023 36 S patient calling, swelling bruising and pain at laminectomy site B over a year ago A Had laminectomy last year. States 2 days ago she developed pain, swelling and bruising near surgical site. Pain is severe. Not relieved by tramadol. Can barely walk R Advised ED today. Patient was going to wait until next week but I strongly advised based off her symptoms to go to [facility] or [facility] today. Patient unsure if she will be going at this time. A patient calling, Reason for Disposition [1] SEVERE back pain (e.g., excruciating, unable to do any normal activities) AND [2] not improved 2 hours after pain medicine Protocols used: Back Olcy-ABZIM-IJ [facility] Absolute lymphocyte countOrd ered By: Babak Whitaker on 09-28-2023 Lymphocytes Auto (Unsp spec) [#/Vol] 2.88 10*3/uL 0.83-4.51 [facility] Automated lymphocyte count a s percentage of total leukocytesOrdered By: Babak Whitaker on 09-28-2023 Lymphocytes/100 WBC Auto (Unsp spec) 23.6 % 19-41 [facility] Basophil percentageOrdered B y: Babak Whitaker on 09-28-2023 Basophils/100 WBC (Bld) 0.4 % 0-1 [facility] Chloride [Moles/Vol] 106 mmol/L 98-107 [facility] Eosinophils/100 WBC (Bld) 0.7 % 0-5 [facility] Glucose [Mass/Vol] 100 mg/dL 74-106 [facility] Comment on above: Fasting Glucose resu lt from 100 to 125 mg/dL suggests IMPAIRED HOMEOSTASIS per A.D.A. criteria. Hemoglobin (Bld) [Mass/Vol] 12.6 g/dL 12.0-15.0 [facility] Monocytes/100 WBC (Bld) 7.0 % 0-10 [facility] Neutrophils (Bld) [#/Vol] 8.3 10*3/uL 2.0-7.7 [facility] Neutrophils/100 WBC (Bld) 67.8 % 47-70 [facility] Potassium [Moles/Vol] 3.7 mmol/L 3.5-5.1 [facility] Sodium [Moles/Vol] 138 mmol/L 136-145 [facility] WBC (Bld) [#/Vol] 12.2 10*3/uL 4.4-11.0 [facility] Basophil percentage 0-5 SEEN /hpf 0-5 [facility] Bilirubin Test strip Ql (U)O rdered By: Babak Whitaker on 09-28-2023 Bilirubin Ql (U) Negative Negative [facility] Calcium oxalate crystals det ection in urine sediment by light microscopyOrdered By: Babak Whitaker on 09-28-2023 Calcium oxalate crystals LM Ql (Urine sed) 1+ /hpf [facility] Determination of erythrocyte mean corpuscular volume (MCV)Ordered By: Babak Whitaker on 09-28-2023 MCV (RBC) [Entitic vol] 89.9 fL 81-99 [facility] Erythrocyte distribution wid th ratioOrdered By: Babak Whitaker on 09-28-2023 Erythrocyte distribution width (RBC) [Ratio] 15.3 % 11.6-14.6 [facility] Erythrocyte distribution wid th standard deviationOrdered By: Babak Whitaker on 09-28-2023 Erythrocyte distribution width (RBC) [Entitic vol] 50.2 fL 35.1-43.9 [facility] Hematocrit Auto (Bld) [Volum e fraction]Ordered By: Babak Whitaker on 09-28-2023 Hematocrit (Bld) [Volume fraction] 37.3 % 37-47 [facility] Immature granulocytes/100 WB C Auto (Bld)Ordered By: Babak Whitaker on 09-28-2023 Immature granulocytes/100 WBC (Bld) 0.500 % 0.0-0.9 [facility] Comment on above: IG% - Immature Granu locytes (promyelocytes, myelocytes and metamyelocytes) > 1% indicates that a LEFT SHIFT is Present. Ketones Test strip Ql (U)Ord ered By: Babak Whitaker on 09-28-2023 Ketones Ql (U) 5 mg/dl Negative [facility] Laboratory - Chemistry and C hemistry - challengeOrdered By: Babak Whitaker on 09-28-2023 CO2 [Moles/Vol] 25.0 mmol/L 21.0-32.0 [facility] Urea nitrogen/Creatinine [Mass ratio] 15.0 mg/mg 10-20 [facility] Laboratory - Hematology and Cell countsOrdered By: Babak Whitaker on 09-28-2023 MCH (RBC) [Entitic mass] 30.4 pg 27.0-32.0 [facility] MCHC (RBC) [Mass/Vol] 33.8 g/dL 32-36 [facility] Nucleated RBC/100 WBC (Bld) [Ratio] 0 % 0-5 [facility] Platelet mean volume (Bld) [Entitic vol] 10.4 fL 6.2-12.0 [facility] Platelets (Bld) [#/Vol] 298 10*3/uL 150-450 [facility] Mucus LM Ql (Urine sed)Order ed By: Babak Whitaker on 09-28-2023 Mucus Ql (Urine sed) 0 SEEN /hpf [facility] Nitrite Test strip Ql (U)Ord ered By: Babak Whitaker on 09-28-2023 Nitrite Ql (U) Negative Negative [facility] No Panel InformationOrdered By: Babak Whitaker on 09-28-2023 Estimated Creatinine Clearance Calc 96.77 ml/min [facility] Estimated GFR (MDRD) Amer 93 mL/min >60 [facility] Comment on above: GFR Calc Estimated GFR (MDRD) Non-Af Amer 77 mL/min >60 [facility] Comment on above: Non- GFR Calc Urine RBC 0 SEEN /hpf 0-5 [facility] Protein Test strip Ql (U)Ord ered By: Babak Whitaker on 09-28-2023 Protein Ql (U) 30 mg/dl Negative [facility] RBC Auto (Bld) [#/Vol]Ordere d By: Babak Whitaker on 09-28-2023 RBC (Bld) [#/Vol] 4.15 10*6/uL 4.2-5.4 [facility] Serum or plasma calcium fabio urement (mass/volume)Ordered By: Babak Whitaker on 09-28-2023 Calcium [Mass/Vol] 9.5 mg/dL 8.5-10.1 [facility] Serum or plasma choriogonado tropin detectionOrdered By: Babak Whitaker on 09-28-2023 HCG ( test) Ql Negative [facility] Serum or plasma creatinine m easurement (mass/volume)Ordered By: Babak Whitaker on 09-28-2023 Creatinine [Mass/Vol] 0.94 mg/dL 0.55-1.02 [facility] Comment on above: The validity of the calculated GFR & GFRAA in patients over 70 years has not been determined. Clinical correlation is essential. Serum or plasma urea nitroge n measurement (mass/volume)Ordered By: Babak Whitaker on 09-28-2023 Urea nitrogen [Mass/Vol] 14 mg/dL 7-18 [facility] Squamous epithelial cells de tection in urine sediment by light microscopyOrdered By: Babak Whitaker on 09-28-2023 Epithelial cells.squamous LM Ql (Urine sed) 5-10 SEEN /hpf 5-10 [facility] Thin prep Papanicolaou smear with manual screeningOrdered By: Babak Whitaker on 09-28-2023 Thin prep Papanicolaou smear with manual screening 7 5-15 [facility] Urine blood detectionOrdered By: Babak Whitaker on 09-28-2023 RBC Ql (U) Negative Negative [facility] Urine clarityOrdered By: Justice Whitaker on 09-28-2023 Clarity (U) Clear Clear [facility] Urine color determinationOrd ered By: Babak Whitaker on 09-28-2023 Color (U) Yellow Yellow [facility] Urine glucose detectionOrder ed By: Babak Whitaker on 09-28-2023 Glucose Ql (U) Normal mg/dl Normal [facility] Urine leukocyte esterase det ection by dipstickOrdered By: Babak Whitaker on 09-28-2023 Leukocyte esterase Test strip Ql (U) 25 /ul Negative [facility] Urine pHOrdered By: Babak melendrez on 09-28-2023 pH (U) 6.0 [pH] 5.0 - 8.0 [facility] Urine sediment bacteria coun t by microscopy (number/high power field)Ordered By: Babak Whitaker on 09-28-2023 Bacteria LM.HPF (Urine sed) [#/Area] 1 /[HPF] None Seen [facility] Urine specific gravity measu rementOrdered By: Babak Whitaker on 09-28-2023 Specific gravity (U) [Rel density] 1.025 1.002-1.030 [facility] Urine urobilinogen measureme ntOrdered By: Babak Whitaker on 09-28-2023 Urobilinogen Ql (U) 1 mg/dl Normal [facility] Laboratory - Chemistry and C hemistry - challengeon 09-27-2023 HCG ( test) Ql (U) Negative [facility] Absolute lymphocyte countOrd ered By: Ishmael Vu on 09-22-2023 Lymphocytes Auto (Unsp spec) [#/Vol] 2.09 10*3/uL 0.83-4.51 [facility] Automated lymphocyte count a s percentage of total leukocytesOrdered By: Ishmael Vu on 09-22-2023 Lymphocytes/100 WBC Auto (Unsp spec) 28.9 % 19-41 [facility] Basophil percentageOrdered B y: Ishmael Vu on 09-22-2023 Basophils/100 WBC (Bld) 0.4 % 0-1 [facility] Bilirubin [Mass/Vol] 0.30 mg/dL 0.20-1.00 [facility] Comment on above: For patients on eltr ombopag therapy, use of Dimension [place] TBIL is not recommended. Chloride [Moles/Vol] 103 mmol/L 98-107 [facility] Cholesterol [Mass/Vol] 211 mg/dL <200 [facility] Comment on above: <200 mg/dL Desirable 200-240 mg/dL Borderline >240 mg/dL High Risk Eosinophils/100 WBC (Bld) 1.0 % 0-5 [facility] Glucose [Mass/Vol] 117 mg/dL 74-106 [facility] Comment on above: Fasting Glucose resu lt from 100 to 125 mg/dL suggests IMPAIRED HOMEOSTASIS per A.D.A. criteria. Hemoglobin (Bld) [Mass/Vol] 13.5 g/dL 12.0-15.0 [facility] Monocytes/100 WBC (Bld) 5.9 % 0-10 [facility] Neutrophils (Bld) [#/Vol] 4.6 10*3/uL 2.0-7.7 [facility] Neutrophils/100 WBC (Bld) 63.2 % 47-70 [facility] Potassium [Moles/Vol] 3.8 mmol/L 3.5-5.1 [facility] Protein [Mass/Vol] 8.1 g/dL 6.4-8.2 [facility] Sodium [Moles/Vol] 137 mmol/L 136-145 [facility] Triglyceride [Mass/Vol] 187 mg/dL <199 [facility] Comment on above: The drugs N-Acetylcy steine and Metamizole may falsely depress this assay.Serum Triglycerides Reference Interval Normal <150 mg/dL Borderline high 150 - 199 mg/dL High 200 - 499 mg/dL Very High > or = 500 mg/dL WBC (Bld) [#/Vol] 7.2 10*3/uL 4.4-11.0 [facility] Determination of erythrocyte mean corpuscular volume (MCV)Ordered By: Ishmael Vu on 09-22-2023 MCV (RBC) [Entitic vol] 92.9 fL 81-99 [facility] Erythrocyte distribution wid th ratioOrdered By: [facility] on 09-22-2023 Erythrocyte distribution width (RBC) [Ratio] 15.1 % 11.6-14.6 [facility] Erythrocyte distribution wid th standard deviationOrdered By: [facility] on 09-22-2023 Erythrocyte distribution width (RBC) [Entitic vol] 51.9 fL 35.1-43.9 [facility] Hematocrit Auto (Bld) [Volum e fraction]Ordered By: [facility]nd[facility] on 09-22-2023 Hematocrit (Bld) [Volume fraction] 41.8 % 37-47 [facility] Immature granulocytes/100 WB C Auto (Bld)Ordered By: Ishmael Vu on 09-22-2023 Immature granulocytes/100 WBC (Bld) 0.600 % 0.0-0.9 [facility] Comment on above: IG% - Immature Granu locytes (promyelocytes, myelocytes and metamyelocytes) > 1% indicates that a LEFT SHIFT is Present. Laboratory - Chemistry and C hemistry - challengeOrdered By: Ishmael Vu on 09-22-2023 Albumin/Globulin [Mass ratio] 1.0 {ratio} 0.9-2.4 [facility] ALP [Catalytic activity/Vol] 74 U/L 45-117 [facility] ALT [Catalytic activity/Vol] 27 U/L 13-56 [facility] Cholesterol in HDL [Mass/Vol] 81 mg/dL >40 [facility] Comment on above: The drugs N-Acetylcy steine and Metamizole may falsely depress this assay. Reference Range HDL <40 mg/dL Low HDL Cholesterol HDL >or= 60 mg/dL High HDL Cholesterol Cholesterol in LDL [Mass/Vol] 93 mg/dL 0-130 [facility] CO2 [Moles/Vol] 28.0 mmol/L 21.0-32.0 [facility] Globulin (S) [Mass/Vol] 4.1 g/dL 2.2-4.2 [facility] Urea nitrogen/Creatinine [Mass ratio] 11.7 mg/mg 10-20 [facility] Laboratory - Hematology and Cell countsOrdered By: Ishmael Vu on 09-22-2023 MCH (RBC) [Entitic mass] 30.0 pg 27.0-32.0 [facility] MCHC (RBC) [Mass/Vol] 32.3 g/dL 32-36 [facility] Nucleated RBC/100 WBC (Bld) [Ratio] 0 % 0-5 [facility] Platelet mean volume (Bld) [Entitic vol] 10.5 fL 6.2-12.0 [facility] Platelets (Bld) [#/Vol] 297 10*3/uL 150-450 [facility] No Panel InformationOrdered By: Ishmael Vu on 09-22-2023 Estimated GFR (MDRD) Amer 117 mL/min >60 [facility] Comment on above: GFR Calc Estimated GFR (MDRD) Non-Af Amer 97 mL/min >60 [facility] Comment on above: Non- GFR Calc VLDL Cholesterol 37 mg/dL 5-40 [facility] RBC Auto (Bld) [#/Vol]Ordere d By: Ishmael Vu on 09-22-2023 RBC (Bld) [#/Vol] 4.50 10*6/uL 4.2-5.4 [facility] Serum or plasma calcium fabio urement (mass/volume)Ordered By: Ishmael Vu on 09-22-2023 Calcium [Mass/Vol] 9.8 mg/dL 8.5-10.1 [facility] Serum or plasma creatinine m easurement (mass/volume)Ordered By: Ishmael Vu on 09-22-2023 Creatinine [Mass/Vol] 0.77 mg/dL 0.55-1.02 [facility] Comment on above: The validity of the calculated GFR & GFRAA in patients over 70 years has not been determined. Clinical correlation is essential. Serum or plasma urea nitroge n measurement (mass/volume)Ordered By: Ishmael Vu on 09-22-2023 Urea nitrogen [Mass/Vol] 9 mg/dL 7-18 [facility] Thin prep Papanicolaou smear with manual screeningOrdered By: Ishmael Vu on 09-22-2023 Thin prep Papanicolaou smear with manual screening 4.0 g/dL 3.2-5.0 [facility] Thin prep Papanicolaou smear with manual screening 15 U/L 1537 [facility] Thin prep Papanicolaou smear with manual screening 6 5-15 [facility] CNOVon 07-27-2023 CNOV Office Visit (UCWSTR ) PAMELA ALEGRIA ([id number]) 2000 F Date Time Provider Department 07/27/23 12:15 PM [facility] During your visit today, we recorded the following information about you: Temperature Pulse Respiration Blood pressure 98.5 degrees 84/minute 18/minute 104/64 Weight 92.3 kg DewayneDicksonKRYSTAL.[employer] 07/27/2023 12:54 PM Signed Subjective HPI Nontoxic-appearing female presents urgent care [...] OF laparoscopy ALLERGIES Dilaudid Cough, Morphine, Percocet [Oxycodone-Acetaminophe n], Red Dye, and Tylenol #3 [Codeine] MEDICATIONS [...] guarding or rebound. Musculoskeletal: Cervical back: Normal r (more content not included)... Normal [facility] 36on 07-06-2023 36 Letter faxed [facility] 36 Pamela is calling ba ck in with the fax number of where the papers need sent to: [place] [phone] Name of caller: Millie or Contact phone number: [phone] Relationship to Patient: patient Provider: Dr. Vallejo Practice: Ortho Chief Complaint/Reason for Call: Pt is requesting a letter for [facility] hiring agency that she is able to work with no restrictions. Please call pt once letter is completed so that she can pickup in office. Please advise. Best time of day caller can be reached: any Patient advised that office/PCP has 24-48 business hours to return their call: Yes [facility] Qualitative QuantiFERON-TB g old in tube testOrdered By: Ankit Zhu on 03-11-2023 M. tuberculosis tuberculin stim IFN-g Ql (Bld) 0.03 IU/mL . [facility] Thin prep Papanicolaou smear with manual screeningOrdered By: Ankit Zhu on 03-11-2023 Thin prep Papanicolaou smear with manual screening Comment . [facility] Comment on above: QuantiFERON-TB Gold Plus is a qualitative indirect test forM tuberculosis infection (including disease) and isintended for use in conjunction with risk assessment,radiography, and other medical and diagnostic evaluations.The QuantiFERON-TB Gold Plus result is determined bysubtracting the Nil value from either TB antigen (Ag)value. The Mitogen tube serves as a control for the test. Thin prep Papanicolaou smear with manual screening 0.03 IU/mL . [facility] Thin prep Papanicolaou smear with manual screening 0.01 IU/mL . [facility] Thin prep Papanicolaou smear with manual screening > 10.00 IU/mL . [facility] Thin prep Papanicolaou smear with manual screening Negative Negative [facility] Comment on above: No response to M tub erculosis antigens detected.Infection with M tuberculosis is unlikely, but high riskindividuals should be considered for additional testing(ATS/IDSA/CDC Clinical Practice Guidelines, 2017). Thereference range is an Antigen minus Nil result of <0.35IU/mL.The specimen received for QuantiFERON testing was incubatedby the ordering institution. Specific procedures outlinedin our Directory of Services and in the package insert forthe QuantiFERON Gold (In Tube) test must be followed toenable for proper stimulation of cells for the productionof interferon gamma. Chemiluminescence immunoassaymethodologyPerformed at: [facility] [id number] Director: Darryl Barnett PhD, Phone: [phone] Office Visiton 02-23-2023 Follow-up visit [id number] Pamela Alegria 2000 F Date Provider Department Center 02/23/2023 [facility] ORT None No family history on file Level of Service:35680 NC OFFICE/OUTPATIENT ESTABLISHED MOD MDM 30-39 MIN Reason for Visit and Comments: Leg Pain [536331] Follow-up [670021] Back Pain [12] Normal [facility] Progress Noteon 02-23-2023 Progress Note [facility] [address] [facility] [address] Dept: [phone] Dept Pamela Alegria 2000 [id number] 02/23/2023 Problem List: MIS Right L5-S1 Laminectomy DOS 09/14/22 Lumbar radiculitis, improving Axial lower back pain, improving Diagnoses: (M54.50) Lumbar pain Chief Complaint Patient presents with Leg Pain Follow-up Back Pain HPI: Pamela is a 23 y.o. female who is [...] Wt 192 lb (87.1 kg) BMI 34.01 kg/m? SPINE/EXTREMITY: General: Posterior incision well-healed Lower Extremity [...] labs were available for review this visit. IMP (more content not included)... Normal [facility] 36on 02-15-2023 36 Pt returning Bibiana's call. Read message to Pt. Pt concerned that she has no restrictions as she states she still cannot stand or sit for long periods of time and still has shooting pain going down one leg. Pt asked what next steps should be and what restrictions she has. Advised Pt to talk with Dr Vallejo about restrictions and next steps at her OV next week. Pt voiced understanding. MARIAM [facility] 36 LVM informing that w e do not have any restrictions for her. Informed her we could write a letter if she needs one and to call back if she needs to. [facility] 36on 02-14-2023 36 Name of caller: Millie or Contact phone number: [phone] Relationship to Patient: patient Provider: Genevieve Practice: [facility] Chief Complaint/Reason for Call: Pt is calling asking if she would be able to return to work at this time. She has a few job interviews this week and is wanting to know when she would be able to return. All of the positions require an 8-10 hour work day with possible significant walking. Please call to advise. Best time of day caller can be reached: Any Patient advised that office/PCP has 24-48 business hours to return their call: No [facility] CNDSon 02-10-2023 CNDS HNO ID: [id number] Author: Stephie Carmona APRN.S[employer]IOR COMMISS[employer] AGENT Service: Neurology Adult Epilepsy Author Type: Nurse Practitioner Type: Discharge Summary Filed: 02/10/2023 11:57 AM Note Text: Attestation signed by Silvia Tse MD at 02/10/2023 12:07 PM EPILEPSY CENTER ATTENDING NOTE Date of Service: February 10, 2023 [facility] [place] NOTE OF PERSONAL INVOLVEMENT IN CARE I have reviewed the discharge note obtained and documented by the nurse practitioner as above. Please see my separate phase report for details of history, EEG interpretation, and overall impression. Silvia Tse MD Staff Physician [facility] Epilepsy Center Office phone: [phone] DISCHARGE SUMMARY PATIENT NAME: Pamela Alegria ADMISSION DATE: 02/07/2023 DISCHARGE DATE: 02/10/2023 ADMITTING SERVICE: Epilepsy ATTENDING PHYSICIAN: Silvia Tse MD Code Status: Not on file Referring/Secondary Physician: Benny Ryan MD Highest Readmission Risk Score: 12 The 30 day readmissions risk score is derived from an internally validated risk model which evaluates patient level characteristics, utilization history, medication orders and lab results up until the day of discharge. Patients with a score of 40 or above are considered highest risk for readmission. Specific patient level drivers will be listed at the bottom of the summary. The 30 day readmissions risk score is derived from an internally validated risk model which evaluates patient level characteristics, utilization history, medication orders and lab results up until the day of discharge. Patients with a score of 40 or above are considered highest risk for readmission. Specific patient level drivers will be listed at the bottom of the summary. REASON FOR HOSPITALIZATION: Diagnosis of Events Principal Problem: Seizures (HCC) (POA: Yes) Active Problems: Nicotine use disorder, F17.2 (POA: Unknown) Generalized idiopathic epilepsy and epileptic syndromes, not intractable, without status epilepticus (HCC) (POA: Yes) Resolved Problems: * No resolved hospital problems. * IMPORTANT TESTS AND PROCEDURES: Continuous Video EEG HOSPITAL COURSE: Pamela Alegria is a 22 year old female with evidence of generalized epilepsy based on interictal findings during EMU evaluation in 2019 who?presents with new?nocturnal episodes?of?shaking of unclear etiology.?Last occurred at the end of December with concurrent Wellbutrin Use. Pamela presented to the [facility] EMU on 02/07/2023 for diagnosis of new episode type and to switch medications. Medications (VPA) was discontinued during the admission. Patient noted to have no events captured. ?Interictal findings: ?IS gen, Jermaine and Wave Complex, Generalized. Please see separate video-EEG report for details. Prior to discharge, antiepileptic medications were changed to the following regimen: Lamictal 25 mg qHS was started and VPA ER 500 mg once daily was restarted with LTG titration to 50 mg BID then stopping VPA DR 500 mg BID and continuing titration of LTG to 100 mg BID. She will continue to follow up with Dr. Ryan regarding her Epilepsy. Activity precautions were reiterated. Transitions of Care Critical Issues: SPECIALIST FOLLOW-UP: Dr. Ryan HERNANDEZ MEDICATION CHANGES: LTG 25 mg qHS started with 8 week titration to 100 mg BID. VPA decreased to 500 mg qHS for 3 weeks-->then stop (once pt reached LTG 50 mg BID) LABS AND PROCEDURES PENDING AT DISCHARGE: Finalized Video EEG Report CONSULTING TEAMS DURING HOSPITALIZATION: None Treatment Team: Attending Provider: Silvia Tse MD PATIENT CONDITION AT DISCHARGE: Stable DISCHARGE DISPOSITION: Home with Self Care Discharge Physical Exam: VITAL SIGNS: BP 111/61 Pulse 94 Temp 36.7 ?C (98.1 ?F) (Temporal) Resp 20 Ht 160 cm (5' 3) Wt 98.3 kg (216 lb 11.4 oz) LMP (LMP Unknown) SpO2 100% BMI 38.39 kg/m? GENERAL: Alert, no distress, cooperative NEURO: Grossly normal cognition, motor function, and cranial nerves III-XII INFORMATION PROVIDED TO PATIENT: Hospital stay and summary Medication Instructions Activity Restrictions Follow UP DIET: Resume pre-hospital diet ACTIVITY: Seizure Precautions: no bathing or swimming unsupervised, no driving, no use of heavy machinery, no use of sharp moving objects (i.e. power tools), avoid heights. If active epilepsy, driving will need to be cleared by an Epileptologist. Driving laws vary state to state, refer to state law for restrictions. ALLERGIES Allergen Reactions - Dilaudid Cough Hives, Other: See Comments dILAUDID - Morphine Hives - Percocet [Oxycodone* Hives - Red Dye Hives - Tylenol #3 [Codeine] Hives DISCHARGE MEDICATION: Medication List START taking these medications * lamoTRIg (more content not included)... Normal [facility] HCG ( test) Ql (U)o n 02-07-2023 Specific gravity (U) [Rel density] 1.020 Normal 1.005-1.030 [facility] Comment on above: Order Comment: Speci men Type: URINE SPECIMEN Ordering Facility: [facility] Address: [address] [place] [id number] Performed By: #### 2 106-3 #### [facility] CLIA [id number] [address] [place] HCG Preg Ur Qlon 02-07-2023 HCG ( test) Ql (U) Negative Normal Negative [facility] Comment on above: Order Comment: Speci men Type: URINE SPECIMEN Ordering Facility: [facility] Address: [facility] [place] [address] Result Comment: This test is intended to aid in the early detection of . Very dilute urine samples, as indicated by a low specific gravity, may not contain major account representative levels of hCG. This test detects intact hCG only. This test does not reliably detect hCG degradation products, including free-beta subunit and beta-core fragment. Therefore, this test may show reduced reactivity in urine after 8 weeks gestation. A number of conditions other than , including trophoblastic disease and certain non-trophoblastic neoplasms cause elevated levels of hCG. As with any assay employing mouse antibodies, the possibility exists for interference by human anti-mouse antibodies (HAMA) in the specimen. The test provides a presumptive diagnosis for . Performed By: #### 2 106-3 #### [facility] CLIA [id number] [address] [place] HISTORY PHYSICALon 3 HISTORY PHYSICAL HNO ID: [id number] Author: Stephie Carmona APRN.SENIOR COMMISSARY AGENT Service: Neurology Adult Epilepsy Author Type: Nurse Practitioner Type: HANDP Filed: 02/07/2023 4:27 PM Note Text: Attestation signed by Silvia Tse MD at 02/08/2023 1:44 PM EPILEPSY CENTER ATTENDING NOTE [facility] Epilepsy Monitoring Unit Progress Note Date of Service: February 08, 2023 [facility] [place] NOTE OF PERSONAL INVOLVEMENT IN CARE Patient was interviewed and examined by me on separate attending rounds this morning with nurse practitioner, Stephie Carmona CNP. I have reviewed the history, exam, diagnosis, and plan obtained and documented by the nurse practitioner as above. I performed my own capj-jx-htcs assessment and personally participated in the hernandez [...] treatment plan. Silvia Tse MD Staff Physician [facility] Epilepsy Center Personal Pager and Cell Office: [phone] For urgent EEG review, call the Epilepsy Continuous Monitoring Unit (ECMU) at [facility] [phone] or [phone]. For overnight issues, 7pm to 7am, [place] [phone]. For in house night coverage of emergencies, call NPCS pager [phone]. NEURO EPILEPSY ADMIT NOTE SERVICE DATE: 02/07/2023 SERVICE TIME: 1:15 PM NIGHT AND WEEKEND COVERAGE: After 5 pm and over the weekends, please page [phone] to contact the epilepsy provider director of flight operations ATTENDING PHYSICIAN: Dr. Tse [facility] UNIT: [id number] [facility] Adult Epilepsy Monitoring Unit (EMU) SERVICE: Adult Epilepsy Subjective CHIEF COMPLAINT: seizures PRESENT ILLNESS: This is a 22 year old right handed female who presents with a chief complaint of seizures admitted for diagnsotic Video EEG monitoring. She is a newly established patient of Dr. Ryan, seen on 01/20/2023. Portions of his note were copied, italicized, and reviewed with the patient. SEIZURE HISTORY: Ms. Pamela Alegria is a 22 year old Right handed woman with history of headaches, unexplained falls, back pain s/p L5 S1 laminectomy for ?severe radiculopathy and epilepsy. She was previously seen by Dr. Velarde , last seen in 2019. 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 She felt heart rate drop [...] nocturnal shaking episodes. With these concerns, she (more content not included)... Normal [facility] TOX SCREEN ROUT URon 023 Amphetamines Confirm (U) [Mass/Vol] Negative Normal Negative [facility] Comment on above: Order Comment: Speci men Type: URINE SPECIMEN Ordering Facility: [facility] Address: [address] [place] [address] Result Comment: Cuto ff threshold at 1000 ng/mL. Performed By: #### U TOX2 #### [facility] CLIA [id number] [address] BARBITURATES, URINE Negative Normal Negative [facility] Comment on above: Order Comment: Speci men Type: URINE SPECIMEN Ordering Facility: [facility] Address: [address] [place] [address] Result Comment: Cuto ff threshold at 200 ng/mL. Performed By: #### U TOX2 #### [facility] CLIA [id number] [address] BENZODIAZEPINES, UR Negative Normal Negative [facility] Comment on above: Order Comment: Speci men Type: URINE SPECIMEN Ordering Facility: [facility] Address: [address] [place] [address] Result Comment: Cuto ff threshold at 200 ng/mL. Performed By: #### U TOX2 #### [facility] CLIA [id number] [address] CANNABINOIDS,URINE Negative Normal Negative [facility] Comment on above: Order Comment: Speci men Type: URINE SPECIMEN Ordering Facility: [facility] Address: [address] [place] [address] Result Comment: Cuto ff threshold at 50 ng/mL. Performed By: #### U TOX2 #### [facility] CLIA [id number] [address] [place] Cocaine Ql (U) Negative Normal Negative [facility] Comment on above: Order Comment: Speci men Type: URINE SPECIMEN Ordering Facility: [facility] Address: [address] [place] [address] Result Comment: Cuto ff threshold at 300 ng/mL. Performed By: #### U TOX2 #### [facility] CLIA [id number] [address] Ethanol (U) [Mass/Vol] <11 Normal <11 [facility] Comment on above: Order Comment: Speci men Type: URINE SPECIMEN Ordering Facility: [facility] Address: [address] [place] [address] Performed By: #### U TOX2 #### [facility] CLIA [id number] [address] Opiates Screen Ql (U) Negative Normal Negative [facility] Comment on above: Order Comment: Speci men Type: URINE SPECIMEN Ordering Facility: [facility] Address: [address] [place] [address] Result Comment: Cuto ff threshold at 300 ng/mL. Performed By: #### U TOX2 #### [facility] CLIA [id number] [address] oxyCODONE cutoff Screen (U) [Mass/Vol] Negative Normal Negative [facility] Comment on above: Order Comment: Speci men Type: URINE SPECIMEN Ordering Facility: [facility] Address: [address] [place] [address] Result Comment: Cuto ff threshold at 100 ng/mL. Performed By: #### U TOX2 #### [facility] CLIA [id number] [address] Phencyclidine Ql (U) Negative Normal Negative [facility] Comment on above: Order Comment: Speci men Type: URINE SPECIMEN Ordering Facility: [facility] Address: [address] [place] [address] Result Comment: Cuto ff threshold at 25 ng/mL. Performed By: #### U TOX2 #### [facility] CLIA [id number] [address] [place] [id number] [place] Clostridium difficile detect ion by polymerase chain reactionOrdered By: Ishmael Vu on 02-03-2023 C. difficile DNA JULIETTE+probe Ql (Unsp spec) [facility] Stool enteric pathogen panel by probe and target amplification methodOrdered By: Ishmael Vu on 02-03-2023 Gastrointestinal pathogens panel JULIETTE+probe (Stl) [facility] Absolute lymphocyte countOrd ered By: Ishmael Vu on 02-02-2023 Lymphocytes Auto (Unsp spec) [#/Vol] 2.18 10*3/uL 0.83-4.51 [facility] Basophil percentageOrdered B y: Ishmael Vu on 02-02-2023 Amylase [Catalytic activity/Vol] 32 U/L 25-115 [facility] Basophils/100 WBC (Bld) 0.7 % 0-1 [facility] Bilirubin [Mass/Vol] 0.30 mg/dL 0.20-1.00 [facility] Comment on above: For patients on eltr ombopag therapy, use of Dimension [place] TBIL is not recommended. Chloride [Moles/Vol] 105 mmol/L 98-107 [facility] Eosinophils/100 WBC (Bld) 2.8 % 0-5 [facility] Glucose [Mass/Vol] 94 mg/dL 74-106 [facility] Neutrophils (Bld) [#/Vol] 2.4 10*3/uL 2.0-7.7 [facility] Neutrophils/100 WBC (Bld) 45.3 % 47-70 [facility] Potassium [Moles/Vol] 3.9 mmol/L 3.5-5.1 [facility] Protein [Mass/Vol] 7.9 g/dL 6.4-8.2 [facility] Sodium [Moles/Vol] 138 mmol/L 136-145 [facility] WBC (Bld) [#/Vol] 5.4 10*3/uL 4.4-11.0 [facility] Blood erythrocytes count (nu mber/volume)Ordered By: Ishmael Vu on 02-02-2023 RBC (Bld) [#/Vol] 4.34 10*6/uL 4.2-5.4 [facility] Blood hemoglobin measurement (mass/volume)Ordered By: Ishmael Vu on 02-02-2023 Hemoglobin (Bld) [Mass/Vol] 13.2 g/dL 12.0-15.0 [facility] Blood lymphocytes/100 leukoc ytesOrdered By: maxime Vu on 02-02-2023 Lymphocytes/100 WBC (Bld) 40.7 % 19-41 [facility] Blood monocytes/100 leukocyt esOrdered By: maxime Vu on 02-02-2023 Monocytes/100 WBC (Bld) 10.1 % 0-10 [facility] Blood platelet mean volumeOr dered By: maxime Vu on 02-02-2023 Platelet mean volume (Bld) [Entitic vol] 10.1 fL 6.2-12.0 [facility] Determination of erythrocyte mean corpuscular volume (MCV)Ordered By: Ishmael Vu on 02-02-2023 MCV (RBC) [Entitic vol] 94.2 fL 81-99 [facility] Hematocrit Auto (Bld) [Volum e fraction]Ordered By: maxime Realsandra on 02-02-2023 Hematocrit (Bld) [Volume fraction] 40.9 % 37-47 [facility] Laboratory - Chemistry and C hemistry - challengeOrdered By: Ishmael Vu on 02-02-2023 ALP [Catalytic activity/Vol] 75 U/L 45-117 [facility] ALT [Catalytic activity/Vol] 23 U/L 13-56 [facility] CO2 [Moles/Vol] 26.0 mmol/L 21.0-32.0 [facility] Globulin (S) [Mass/Vol] 4.1 g/dL 2.2-4.2 [facility] Lipase [Catalytic activity/Vol] 21 U/L 13-75 [facility] Comment on above: Please note:LIPASE r evised reference range effective 22. New Lipase methodology. Expected to produce lower values than the previous assay method. NEW Reference Range: 13 - 75 U/L Urea nitrogen/Creatinine [Mass ratio] 16.6 mg/mg 10-20 [facility] Laboratory - Hematology and Cell countsOrdered By: Ishmael Vu on 02-02-2023 Erythrocyte distribution width (RBC) [Entitic vol] 46.5 fL 35.1-43.9 [facility] Erythrocyte distribution width (RBC) [Ratio] 13.4 % 11.6-14.6 [facility] Immature granulocytes/100 WBC (Bld) 0.400 % 0.0-0.9 [facility] Comment on above: IG% - Immature Granu locytes (promyelocytes, myelocytes and metamyelocytes) > 1% indicates that a LEFT SHIFT is Present. MCH (RBC) [Entitic mass] 30.4 pg 27.0-32.0 [facility] Nucleated RBC/100 WBC (Bld) [Ratio] 0 % 0-5 [facility] MCHC Auto (RBC) [Mass/Vol]Or dered By: Ishmael uV on 02-02-2023 MCHC (RBC) [Mass/Vol] 32.3 g/dL 32-36 [facility] No Panel InformationOrdered By: Ishmael Vu on 02-02-2023 Estimated GFR (MDRD) Amer 126 mL/min >60 [facility] Comment on above: GFR Calc Estimated GFR (MDRD) Non-Af Amer 104 mL/min >60 [facility] Comment on above: Non- GFR Calc Platelets bldOrdered By: Momo Vu on 02-02-2023 Platelets (Bld) [#/Vol] 301 10*3/uL 150-450 [facility] Serum or plasma albumin fabio urement (mass/volume)Ordered By: Ishmael Vu on 02-02-2023 Albumin [Mass/Vol] 3.8 g/dL 3.2-5.0 [facility] Serum or plasma albumin/glob ulin mass ratioOrdered By: Ishmael Vu on 02-02-2023 Albumin/Globulin [Mass ratio] 0.9 {ratio} 0.9-2.4 [facility] Serum or plasma calcium fabio urement (mass/volume)Ordered By: Ishmael Vu on 02-02-2023 Calcium [Mass/Vol] 9.1 mg/dL 8.5-10.1 [facility] Serum or plasma creatinine m easurement (mass/volume)Ordered By: Ishmael Vu on 02-02-2023 Creatinine [Mass/Vol] 0.72 mg/dL 0.55-1.02 [facility] Comment on above: The validity of the calculated GFR & GFRAA in patients over 70 years has not been determined. Clinical correlation is essential. Serum or plasma urea nitroge n measurement (mass/volume)Ordered By: Ishmael Vu on 02-02-2023 Urea nitrogen [Mass/Vol] 12 mg/dL 7-18 [facility] Thin prep Papanicolaou smear with manual screeningOrdered By: Ishmael Vu on 02-02-2023 Thin prep Papanicolaou smear with manual screening 15 U/L 15-37 [facility] Thin prep Papanicolaou smear with manual screening 7 5-15 [facility] CNPNon 01-27-2023 CNPN Telephone (NE50MN) PAMELA ALEGRIA ([id number]) 2000 F Date Time Provider Department 01/27/23 BENNY RYAN NE50MN During your visit today, we recorded the following information about you: TATI OVIEDO RN 01/27/2023 4:29 PM Signed Patient is requesting home VEEG instead of EMU admission. DARWIN RING APRN.SOUTH 01/27/2023 4:44 PM Signed VEEG is still strongly preferred is at all possible because we can decrease and stop meds which we can not do at home. If it is absolutely not possible then home EEG is an option Stephie Carmona APRN.[facility] OVIEDO RN 01/28/2023 10:42 AM Signed Spoke with the patient and explained recommendation. She understands and will call back with decision. DARWIN RING RN 01/31/2023 3:20 PM Signed Spoke with the patient and reiterated the purpose for EMU admission versus home EEG. Patient has opted to continue with EMU. TATI OVIEDO RN Allergies As of Date: 01/27/2023 Noted Allergy Reaction DILAUDID COUGH 08/25/2022 4 - Hives 14 - Other: See Comments Comments: dILAUDID MORPHINE 06/13/2018 4 - Hives PERCOCET (OXYCODONE-ACETAMINOPHE N)10/23/2020 4 - Hives RED DYE 06/13/2018 4 - Hives TYLENOL #3 (CODEINE) 06/13/2018 4 - Hives Date Reviewed: 01/20/2023 Reviewed by: Jonas Pa LPN - Fully Assessed Reason for Visit: VEEG testing [Other] Prescriptions as of 01/31/2023 - acetaminophen (TYLENOL) 500 mg tablet Take 2 tablets by mouth every 8 hours as needed for pain. - prochlorperazine (COMPAZINE) 10 mg tablet Take 1 tablet by mouth every 8 hours as needed for nausea/vomiting. - labetalol (TRANDATE) 100 mg tablet Take 50 mg by mouth twice daily. - methocarbamol (ROBAXIN) 750 mg tablet Take 375 mg by mouth twice daily. - traMADol (ULTRAM) 50 mg tablet Take 0.5 tablets by mouth twice daily. - amitriptyline (ELAVIL) 100 mg tablet Take 1 tablet by mouth daily at bedtime. - divalproex ER (DEPAKOTE ER) 500 mg 24 hr tablet Take 2 tabs by mouth QHS. 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 Patient believes Tramadol is causing the muscle spasms at night. Please advise. Patient of Dr. Issac OVIEDO RN 01/21/2023 4:45 PM Signed Called patient and left [facility] regarding Tramadol and side effects. Patient needs to call her PCP or prescriber. Left number for return call. DARWIN RING APRN.[facility] 01/21/2023 4:57 PM Signed Agree with recommendation Stephie Carmona APRN.[facility] Aida Carvajal Sec 01/21/2023 5:05 PM Signed Patient can be reached at [phone] (home). TATI OVIEDO RN 01/24/2023 10:35 AM Signed Spoke with the patient. She contacted her PCP and Tramadol was discontinued. She wanted to let Dr. Ryan know. She also wanted to know if she should still be admitted to EMU since spasms were caused by Tramadol. Informed her that given her history, it is still recommended for her to continue with plan of EMU. She verbalized understanding and will continue with admission. TATI OVIEDO RN Allergies As of Date: 01/21/2023 Noted Allergy Reaction DILAUDID COUGH 08/25/2022 4 - Hives 14 - Other: See Comments Comments: dILAUDID MORPHINE 06/13/2018 4 - Hives PERCOCET (OXYCODONE-ACETAMINOPHE N)10/23/2020 4 - Hives RED DYE 06/13/2018 4 - Hives TYLENOL #3 (CODEINE) 06/13/2018 4 - Hives Date Reviewed: 01/20/2023 Reviewed by: Jonas Pa LPN - Fully Assessed Reason for Visit: Other [Other] Cmt: Is EMU admit necessary if muscle spasms are caused by Tramadol.? Prescriptions as of 01/24/2023 - acetaminophen (TYLENOL) 500 mg tablet Take 2 tablets by mouth every 8 hours as needed for pain. - prochlorperazine (COMPAZINE) 10 mg tablet Take 1 tablet by mouth every 8 hours as needed for nausea/vomiting. - labetalol (TRANDATE) 100 mg tablet Take 50 mg by mouth twice daily. - methocarbamol (ROBAXIN) 750 mg tablet Take 375 mg by mouth twice daily. - traMADol (ULTRAM) 50 mg tablet Take 0.5 tablets by mouth twice daily. - amitriptyline (ELAVIL) 100 mg tablet Take 1 tablet by mouth daily at bedtime. - divalproex ER (DEPAKOTE ER) 500 mg 24 hr tablet Take 2 tabs by mouth QHS. 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*10/02/2018 Encounter Status:Closed by STEPHIE CARMONA on 01/21/23 Normal [facility] CNOVon 01-20-2023 CNOV Office Visit (NEEPBA ) PAMELA ALEGRIA ([id number]) 2000 F Date Time Provider Department 01/20/23 10:00 AM BENNY RYAN During your visit today, we recorded the following information about you: Pulse Respiration Blood pressure Weight 64/minute 18/minute 120/82 93 kg Height 1.6 m Benny Ryan MD 01/20/2023 6:44 PM Signed [facility] Patient Name: Pamela ZUNIGA Date of : 2000 Referring Provider: Taz Mackenzie [address] [place] [id number] INITIAL EPILEPSY CLINIC NOTE 01/20/2023 10:00 AM CHIEF COMPLAINT: New Patient and Epilepsy HISTORY OF PRESENT ILLNESS Ms. Alegria is a 22 year old right-handed female seen in [facility] for initial consultation. There is no one accompanying the patient during today's visit. Handedness: right-handed Age of onset: 15 years Seizure History and Evolution Ms. Pamela Alegria is a 22 year old Right handed woman with history of headaches, unexplained falls, back pain s/p L5 S1 laminectomy for ?severe radiculopathy and epilepsy. She was previously seen by Dr. Velarde , last seen in 2019. 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 She felt heart rate [...] of optic neuritis based on evaluation at [facility] (Dr. Mackenzie). 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 Normal [facility] Stool enteric pathogen panel by probe and target amplification methodOrdered By: Adrian Payne on 01-18-2023 Gastrointestinal pathogens panel JULIETTE+probe (Stl) [facility] 36on 01-12-2023 36 Submitted PA request to pts insurance, office will contact patient to schedule if approved Normal [facility] 36on 01-11-2023 Can offer fast-track RIGHT S1 TFESI. Normal [facility] 36on 01-10-2023 36 Noted Normal [facility] 36 Patient called and notified that her MRI showed that she had normal scar tissue at the right S1 nerve. She is willing to try a right S1 TFESI as recommended by Dr. Vallejo. Please place an order for this for me to sign. Normal [facility] Gastrointestinal pathogens p holly JULIETTE+probe (Stl)Ordered By: Adrian Payne on 01-04-2023 Enteric Bacteriology Campylobacter species [facility] No Panel InformationOrdered By: Adrian Payne on 01-04-2023 Giardia Antigen (DAJA) [facility] Stool Calprotectin 27 ug/g 0-120 [facility] Comment on above: Concentration Interp retation Follow-Up< 5 - 50 ug/g Normal None>50 -120 ug/g Borderline Re-evaluate in 4-6 weeks >120 ug/g Abnormal Repeat as clinically indicatedPerformed at: - [facility] [address] [id number] Director: Angeles Chavarria MD, Phone: [phone] Stool Pancreatic Elastase [address] >200 [facility] Comment on above: Result Units: ug Sue st./g Severe Pancreatic Insufficiency: <100 Moderate Pancreatic Insufficiency: 100 - 200 Normal: >200Performed at: BN - [facility] [address], [place], [place] [id number] Director: Angeles Chavarria MD, Phone: [phone] Ova and parasitesOrdered By: Adrian Payne on 01-04-2023 Ova and parasites identified LM Nom (Unsp spec) [facility] Stool lactoferrin detection by immunoassayOrdered By: Adrian Payne on 01-04-2023 Lactoferrin IA Ql (Stl) [facility] Absolute lymphocyte countOrd ered By: Adrian Payne on 01-03-2023 Lymphocytes Auto (Unsp spec) [#/Vol] 2.93 10*3/uL 0.83-4.51 [facility] Albumin Elph [Mass/Vol]Order ed By: Adrian Payne on 01-03-2023 Albumin [Mass/Vol] 4.2 g/dL 2.9-4.4 [facility] Atypical perinuclear antineu trophil cytoplasmic antibodies measurementOrdered By: Adrian Payne on 01-03-2023 Neutrophil cytoplasmic Ab.perinuclear.atypical IF (S) [Titer] <1:20 titer Neg:<1:20 [facility] Comment on above: The atypical pANCA p attern has been observed in asignificant percentage of patients with ulcerative colitis,primary sclerosing cholangitis and autoimmune hepatitis.Performed at: [address] [id number] Director: Darryl Barnett PhD, Phone: [phone] at: [address] [id number] Director: Angeles Chavarria MD, Phone: [phone] Basophil percentageOrdered B y: Adrian Payne on 01-03-2023 Basophil percentage < 0.2 AI 0.0-0.9 [facility] Basophils/100 WBC (Bld) 0.4 % 0-1 [facility] Bilirubin [Mass/Vol] 0.20 mg/dL 0.20-1.00 [facility] Comment on above: For patients on eltr ombopag therapy, use of Dimension [place] TBIL is not recommended. Chloride [Moles/Vol] 108 mmol/L 98-[address] [facility] Eosinophils/100 WBC (Bld) 2.7 % 0-5 [facility] Glucose [Mass/Vol] 84 mg/dL 74-106 [facility] LDH [Catalytic activity/Vol] 207 U/L 84-246 [facility] Neutrophils (Bld) [#/Vol] 3.1 10*3/uL 2.0-7.7 [facility] Neutrophils/100 WBC (Bld) 46.9 % 47-70 [facility] Potassium [Moles/Vol] 3.7 mmol/L 3.5-5.1 [facility] Protein [Mass/Vol] 7.5 g/dL 6.4-8.2 [facility] Sodium [Moles/Vol] 140 mmol/L 136-145 [facility] WBC (Bld) [#/Vol] 6.7 10*3/uL 4.4-11.0 [facility] Blood erythrocytes count (nu mber/volume)Ordered By: Adrian Payne on 01-03-2023 RBC (Bld) [#/Vol] 4.13 10*6/uL 4.2-5.4 [facility] Blood hemoglobin measurement (mass/volume)Ordered By: Adrian Payne on 01-03-2023 Hemoglobin (Bld) [Mass/Vol] 12.8 g/dL 12.0-15.0 [facility] Blood lymphocytes/100 leukoc ytesOrdered By: Adrian Payne on 01-03-2023 Lymphocytes/100 WBC (Bld) 43.9 % 19-41 [facility] Blood monocytes/100 leukocyt esOrdered By: Adrian Payne on 01-03-2023 Monocytes/100 WBC (Bld) 5.8 % 0-10 [facility] Blood platelet mean volumeOr dered By: Adrian Payne on 01-03-2023 Platelet mean volume (Bld) [Entitic vol] 10.4 fL 6.2-12.0 [facility] Determination of erythrocyte mean corpuscular volume (MCV)Ordered By: Adrian Payne on 01-03-2023 MCV (RBC) [Entitic vol] 93.2 fL 81-99 [facility] Erythrocyte sedimentation ra teOrdered By: Adrian Payne on 01-03-2023 ESR (Bld) [Velocity] 16 mm/h 0-30 [facility] Hematocrit Auto (Bld) [Volum e fraction]Ordered By: Adrian Payne on 01-03-2023 Hematocrit (Bld) [Volume fraction] 38.5 % 37-47 [facility] Interpretation of serum or p lasma protein pattern by immunofixation (narrative resultOrdered By: Adrian Payne on 01-03-2023 Protein Fractions Immunofixation Jerson [Interp] See comment [facility] Comment on above: Result: Not Observed Laboratory - Chemistry and C hemistry - challengeOrdered By: Adrian Payne on 01-03-2023 ALP [Catalytic activity/Vol] 72 U/L 45-117 [facility] ALT [Catalytic activity/Vol] 26 U/L 13-56 [facility] CO2 [Moles/Vol] 25.0 mmol/L 21.0-32.0 [facility] Cobalamin (Vitamin B12) [Mass/Vol] 253 pg/mL 211-911 [facility] Globulin (S) [Mass/Vol] 3.5 g/dL 2.2-4.2 [facility] Urea nitrogen/Creatinine [Mass ratio] 22.4 mg/mg 10-20 [facility] Laboratory - Hematology and Cell countsOrdered By: Adrian Payne on 01-03-2023 Erythrocyte distribution width (RBC) [Entitic vol] 46.1 fL 35.1-43.9 [facility] Erythrocyte distribution width (RBC) [Ratio] 13.5 % 11.6-14.6 [facility] Immature granulocytes/100 WBC (Bld) 0.300 % 0.0-0.9 [facility] Comment on above: IG% - Immature Granu locytes (promyelocytes, myelocytes and metamyelocytes) > 1% indicates that a LEFT SHIFT is Present. MCH (RBC) [Entitic mass] 31.0 pg 27.0-32.0 [facility] Nucleated RBC/100 WBC (Bld) [Ratio] 0 % 0-5 [facility] MCHC Auto (RBC) [Mass/Vol]Or dered By: Adrian Payne on 01-03-2023 MCHC (RBC) [Mass/Vol] 33.2 g/dL 32-36 [facility] No Panel InformationOrdered By: Adrian Payne on 01-03-2023 Addendum Document Comment . [facility] Comment on above: Protein electrophore sis scan will follow via computer,mail, or animal rides manager delivery. Centromere B Antibody <0.2 AI 0.0-0.9 [facility] Endomysial IgA Antibody Negative Negative [facility] Estimated GFR (MDRD) Amer 150 mL/min >60 [facility] Comment on above: GFR Calc Estimated GFR (MDRD) Non-Af Amer 124 mL/min >60 [facility] Comment on above: Non- GFR Calc Immunoglobulin E 23 IU/mL 6-495 [facility] UNIVERSITY RELATIONS VICE PRESIDENT Antibody <0.2 AI 0.0-0.9 [facility] Platelets bldOrdered By: Deniz Payne on 01-03-2023 Platelets (Bld) [#/Vol] 299 10*3/uL 150-450 [facility] Serum DNA double strand anti body assay (units/volume)Ordered By: Adrian Payne on 01-03-2023 DNA double strand Ab Qn (S) [IU]/mL 0-9 [facility] Comment on above: Negative <5 Equivoca l 5 - 9 Positive >9 Serum IgA measurement (units /volume)Ordered By: Adrian Payne on 01-03-2023 IgA Qn (S) 110 mg/dL 87-352 [facility] Comment on above: Performed at: [address] [id number] Director: Darryl Barnett PhD, Phone: [phone] Serum Felicita-1 antibody assay (u nits/volume)Ordered By: Adrian Payne on 01-03-2023 Felicita-1 extractable nuclear Ab Qn (S) <0.2 AI 0.0-0.9 [facility] Serum Scl-70 extractable nuc lear antibody assay (units/volume)Ordered By: Adrian Payne on 01-03-2023 SCL-70 extractable nuclear Ab Qn (S) 0.2 AI 0.0-0.9 [facility] Serum Raygoza extractable nucl ear antibody detectionOrdered By: Adrian Payne on 01-03-2023 Raygoza extractable nuclear Ab Ql (S) <0.2 AI 0.0-0.9 [facility] Serum [id number] measu rement by electrophoresisOrdered By: Adrian Payne on 01-03-2023 Alpha 1 globulin Elph [Mass/Vol] 0.2 g/dL 0.0-0.4 [facility] Alpha 1 globulin Elph [Mass/Vol] 0.8 g/dL 0.4-1.0 [facility] Serum classic neutrophil cyt oplasmic antibody assay (units/volume)Ordered By: Adrian Payne on 01-03-2023 Neutrophil cytoplasmic Ab.classic Qn (S) <1:20 titer Neg:<1:20 [facility] Serum globulin measurement ( mass/volume)Ordered By: Adrian Payne on 01-03-2023 Globulin (S) [Mass/Vol] 2.9 g/dL 2.2-3.9 [facility] Serum or plasma C reactive p rotein measurement (mass/volume)Ordered By: Adrian Payne on 01-03-2023 CRP [Mass/Vol] mg/L 0.0-3.0 [facility] Comment on above: C-Reactive Protein ( CRP) provides useful information for thediagnosis, therapy and monitoring of inflammatory processesand associated diseases. For the evaluation of Relative Riskfor Cardiovascular Disease, a High Sensitivity CRP (HSCRP)should be ordered. Serum or plasma IgA measurem ent (mass/volume)Ordered By: Adrian Payne on 01-03-2023 IgA [Mass/Vol] 107 mg/dL 87-352 [facility] Serum or plasma IgG measurem ent (mass/volume)Ordered By: Adrian Payne on 01-03-2023 IgG [Mass/Vol] 979 mg/dL 586-1602 [facility] Serum or plasma IgM measurem ent (mass/volume)Ordered By: Adrian Payne on 01-03-2023 IgM [Mass/Vol] 85 mg/dL 26-217 [facility] Serum or plasma albumin fabio urement (mass/volume)Ordered By: Adrian Payne on 01-03-2023 Albumin [Mass/Vol] 4.0 g/dL 3.2-5.0 [facility] Serum or plasma albumin/glob ulin mass ratioOrdered By: Adrian Payne on 01-03-2023 Albumin/Globulin [Mass ratio] 1.1 {ratio} 0.9-2.4 [facility] Serum or plasma beta globuli n measurement by electrophoresis (mass/volume)Ordered By: Adrian Payne on 01-03-2023 Beta globulin Elph [Mass/Vol] 1.1 g/dL 0.7-1.3 [facility] Serum or plasma calcium fabio urement (mass/volume)Ordered By: Adrian Payne on 01-03-2023 Calcium [Mass/Vol] 8.9 mg/dL 8.5-10.1 [facility] Serum or plasma creatinine m easurement (mass/volume)Ordered By: Adrian Payne on 01-03-2023 Creatinine [Mass/Vol] 0.62 mg/dL 0.55-1.02 [facility] Comment on above: The validity of the calculated GFR & GFRAA in patients over 70 years has not been determined. Clinical correlation is essential. Serum or plasma folate measu rement (mass/volume)Ordered By: Adrian Payne on 01-03-2023 Folate [Mass/Vol] 49.00 ng/mL 3.1-55.4 [facility] Serum or plasma gamma globul in measurement by electrophoresis (mass/volume)Ordered By: Adrian Payne on 01-03-2023 Gamma globulin Elph [Mass/Vol] 0.9 g/dL 0.4-1.8 [facility] Serum or plasma immunoelectr ophoresis interpretation (nominal result)Ordered By: Adrian Payne on 01-03-2023 Interpretation IEP [Interp] Comment . [facility] Comment on above: No monoclonality det ected. Serum or plasma urea nitroge n measurement (mass/volume)Ordered By: Adrian Payne on 01-03-2023 Urea nitrogen [Mass/Vol] 14 mg/dL 7-18 [facility] Serum perinuclear neutrophil cytoplasmic antibody titer by immunofluorescenceOrdered By: Adrian Payne on 01-03-2023 Neutrophil cytoplasmic Ab.perinuclear IF (S) [Titer] <1:20 titer Neg:<1:20 [facility] Comment on above: The presence of posi tive fluorescence exhibiting P-ANCA orC-ANCA patterns alone is not specific for the diagnosis ofWegener's Granulomatosis (WG) or microscopic polyangiitis.Decisions about treatment should not be based solely onANCA IFA results. The International ANCA Group Consensusrecommends follow up testing of positive sera with both NC-3 and MPO-ANCA enzyme immunoassays. As many as 5% serumsamples are positive only by EIA. Ref. AM J Clin Meomow6088;111:507-513. Serum tissue transglutaminas e IgA antibody assay (units/volume)Ordered By: Adrian Payne on 01-03-2023 tTG IgA Qn (S) <2 U/mL 0-3 [facility] Comment on above: Negative 0 - 3 Weak Positive 4 - 10 Positive >10 Tissue Transglutaminase (tTG) has been identified as the endomysial antigen. Studies have demonstr- ated that endomysial IgA antibodies have over 99% specificity for gluten sensitive enteropathy. Thin prep Papanicolaou smear with manual screeningOrdered By: Adrian Payne on 01-03-2023 Thin prep Papanicolaou smear with manual screening 17 U/L 15-37 [facility] Thin prep Papanicolaou smear with manual screening 7 5-15 [facility] Thin prep Papanicolaou smear with manual screening 1.5 0.7-1.7 [facility] Total protein bloodOrdered B y: Adrian Payne on 01-03-2023 Protein [Mass/Vol] 7.1 g/dL 6.0-8.5 [facility] ALLIED HEALTHon 12-22-2022 ALLIED HEALTH HNO ID: [id number] Author: RT Libia(R) Service: Radiology Author Type: Technologist Type: Allied Health Filed: 12/22/2022 10:53 AM Note Text: Radiology Service Progress Note PATIENT NAME: Pamela Alegria DATE OF SERVICE: December 22, 2022 [...] PERIPHERAL IV DATA: Not applicable SIGNED BY: Leslie Richter, RT(R) December 22, 2022 10:52 AM Normal [facility] ANGIOTEN CON ENZ, CSFon 05-3 ANGIOTENSIN CONVERTING ENZYME, CSF 0.8 U/L Normal 0.0-2.5 [facility] Comment on above: Order Comment: Speci men Type: CEREBROSPINAL FLUID Ordering Facility: [facility] Address: [address] [place] [id number] Result Comment: This test was developed and its performance characteristics determined by [facility]. It has not been cleared or approved by the [place] Food and Drug Administration. This test was performed in a CLIA certified laboratory and is intended for clinical purposes. Performed By: [facility] [address] [place] [address] Differential Repairer: Vu Velazco MD, PhD Performed By: #### C ABELINO #### [facility] CLIA [id number] [address] [place] [address] BRIEF OP NOTon 12-22-2022 BRIEF OP NOT HNO ID: [id number] Author: Emmanuel Velazco APRN.SENIOR COMMISSARY AGENT Service: Interventional Radiology Author Type: Nurse Practitioner Type: Brief Op Note Filed: 12/22/2022 10:17 AM Note Text: BRIEF OPERATIVE / PROCEDURE NOTE LOG ID: [id number] SURGERY/PROCEDURE DATE: 12/22/2022 INCISION/PROCEDURE START TIME: 0955 INCISION CLOSE/PROCEDURE END TIME: 1010 SURGEON(S)/PROCEDURALIS T(S) AND GROCERY DELIVERER(S): Surgeon(s) and Role: * Emmanuel Velazco APRN.SENIOR COMMISSARY AGENT - Primary No Additional Staff SURGERY/PROCEDURE(S): Fluoroscopy guided diagnostic and therapeutic lumbar puncture with local anesthetic ANESTHESIA: Local FINDINGS: Access with 15 cm spinal needle at L4/5 midline, OP 23, CP <15, 11 ml clear CSF removed in 4 tubes ESTIMATED BLOOD LOSS: 0 ml SPECIMENS: 11 ml in 4 tubes COMPLICATIONS: None PRE-OP/PRE-PROCEDURE DIAGNOSIS: Headache, papilledema POST-OP/POST-PROCEDURE DIAGNOSIS: Same as Preop SIGNATURE: Emmanuel Velazco APRN.CNP PATIENT NAME: Pamela Alegria DATE: December 22, 2022 TIME: 10:16 AM Normal [facility] CSF MANUAL DIFFon 12-22-2022 Diff Total, CSF 89 cells counted [facility] Lymph%, CSF 88 % 50 - 90 % [facility] Macro%, CSF 6 % High <1 % [facility] Bartholomew%, CSF 7 % Low 10 - 50 % [facility] DIF TTL, CSF 89 cells counted Normal [facility] Comment on above: Order Comment: Speci men Type: CEREBROSPINAL FLUID Ordering Facility: [facility] Address: [address] [place] [address] Performed By: #### 3 4563-7, [id number] #### [facility] CLIA [id number] [address] [place] [address] [place] LYMPH%, CSF 88 % Normal 50-90 [facility] Comment on above: Order Comment: Speci men Type: CEREBROSPINAL FLUID Ordering Facility: [facility] Address: [address] [place] [address] Performed By: #### 3 4563-7, [id number] #### [facility] CLIA [id number] [address] [place] [address] [place] MACRO%, CSF 6 % High <1 [facility] Comment on above: Order Comment: Speci men Type: CEREBROSPINAL FLUID Ordering Facility: [facility] Address: [address] [place] [address] Performed By: #### 3 4563-7, [id number] #### [facility] CLIA [id number] [address] [place] [address] [place] MONO%, CSF 7 % Low 10-50 [facility] Comment on above: Order Comment: Speci men Type: CEREBROSPINAL FLUID Ordering Facility: [facility] Address: [address] [place], [place] [id number] Performed By: #### 3 4563-7, [id number] #### [facility] CLIA [id number] [address] CYTOLOGY NON-GYNon CASE REPORT Normal [facility] Comment on above: Order Comment: Speci men Type: FLUID SPECIMENOrdering Facility: [facility] Address: [address] [place] [address] Result Comment: [facility] Cytology Report Case: [id number] Authorizing Provider: Taz Sky MD Collected: 12/22/2022 10:02 AM Ordering Location: Ophthalmology Received: 12/22/2022 12:46 PM Pathologist: Monica Palmer MD Specimen: CEREBROSPINAL FLUID. Performed By: #### C YTONON ####[facility] [id number] [address] CLINICAL HISTORY c/f IIH Normal [facility] Comment on above: Order Comment: Speci men Type: FLUID SPECIMENOrdering Facility: [facility] Address: [address] [place] [address] Performed By: #### C YTONON ####[facility] [id number] [address] FINAL DIAGNOSIS Normal [facility] Comment on above: Order Comment: Speci men Type: FLUID SPECIMENOrdering Facility: [facility] Address: [address] [place] [address] Result Comment: A - CEREBROSPINAL FLUID. Negative for malignant cells. Performed By: #### C YTONON ####[facility] [id number] [address] FINAL PERFORMING LAB Normal [facility] Comment on above: Order Comment: Speci men Type: FLUID SPECIMENOrdering Facility: [facility] Address: [address] [place] [address] Result Comment: Tech nical component, handbag parts cutter screening performed at [facility], [address] [place] [address] CLIA# [id number] Diagnostic interpretation performed at [facility], [address] [place] [address] CLIA# [id number] Differential Repairer: Gregory Gamboa M.D. Performed By: #### C YTONON ####[facility] [id number] [address] GROSS DESCRIPTION Normal [facility] Comment on above: Order Comment: Speci men Type: FLUID SPECIMENOrdering Facility: [facility] Address: [address] [place] [address] Result Comment: A. C EREBROSPINAL FLUID. 2.5 cc clear colorless fluid. Cytospin prepared. Performed By: #### C YTONON ####[facility] [id number] [address] Cell count panel (CSF)on Clarity (CSF) Clear Normal Clear [facility] Comment on above: Order Comment: Speci men Type: CEREBROSPINAL FLUID Ordering Facility: [facility] Address: [address] [address] Performed By: #### 3 4563-7, [id number] #### [facility] CLIA [id number] [address] [place] [address] Clarity (Unsp spec) Not Indicated Normal Clear [facility] Comment on above: Order Comment: Speci men Type: CEREBROSPINAL FLUID Ordering Facility: [facility] Address: [address] [address] Performed By: #### 3 4563-7, [id number] #### [facility] CLIA [id number] [address] Color (CSF) Colorless Normal Colorless [facility] Comment on above: Order Comment: Speci men Type: CEREBROSPINAL FLUID Ordering Facility: [facility] Address: [address] [address] Performed By: #### 3 4563-7, [id number] #### [facility] CLIA [id number] [address] Color (Spun CSF) Not Indicated Normal Colorless [facility] Comment on above: Order Comment: Speci men Type: CEREBROSPINAL FLUID Ordering Facility: [facility] Address: [address] [place] [address] Performed By: #### 3 4563-7, [id number] #### [facility] CLIA [id number] [address] CSF TUBE NUMBER Tube 4 Normal [facility] Comment on above: Order Comment: Speci men Type: CEREBROSPINAL FLUID Ordering Facility: [facility] Address: [address] [place] [address] Performed By: #### 3 4563-7, [id number] #### [facility] CLIA [id number] [address] [place] [address] RBC Manual cnt (CSF) [#/Vol] 0 cells/uL Normal 0-5 [facility] Comment on above: Order Comment: Speci men Type: CEREBROSPINAL FLUID Ordering Facility: [facility] Address: [address] [place] [address] Performed By: #### 3 4563-7, [id number] #### [facility] CLIA [id number] [address] [place] [address] WBC Manual cnt (CSF) [#/Vol] 1 cells/uL Normal 0-5 [facility] Comment on above: Order Comment: Speci men Type: CEREBROSPINAL FLUID Ordering Facility: [facility] Address: [address] [place] [address] Performed By: #### 3 4563-7, [id number] #### [facility] CLIA [id number] [address] Clarity (CSF) Clear Clear [facility] Clarity (Unsp spec) Not Indicated Clear [facility] Color (CSF) Colorless Colorless [facility] Color (Spun CSF) Not Indicated Colorless [facility] CSF Tube Number Tube 4 [facility] RBC Manual cnt (CSF) [#/Vol] 0 cells/uL 0 - 5 cells/uL [facility] WBC Manual cnt (CSF) [#/Vol] 1 cells/uL 0 - 5 cells/uL [facility] Glucose CSF-mCncon 3 Glucose (CSF) [Mass/Vol] 61 mg/dL Normal 40-70 [facility] Comment on above: Order Comment: Pily barnhart Type: CEREBROSPINAL FLUIDOrdering Facility: [facility] Address: [address] [place] [address] Result Comment: Lumb ar CSF glucose values of healthy patients are approximately 60% of the plasma values and must always be compared with a concurrently measured plasma value for adequate clinical interpretation. References: 1. Glucose HK (GLUC3) [package insert V 12.0 Kosovan]. [employer], [place], [place]. November 2015. 2. Elba Kaminski, Elba Vargas (2015). Chapter 7: Glucose and Lactate. F. Brian suárez al.(eds.), Cerebrospinal Fluid in Clinical Neurology. Coke: OOYYO. Performed By: #### 2 342-4 ####[facility] [id number] [place] [address] [place] PROTEIN CSFon 12-22-2022 Protein (CSF) [Mass/Vol] 24 mg/dL 15 - 45 mg/dL [facility] Prot CSF-mCncon 12-22-2022 Protein (CSF) [Mass/Vol] 24 mg/dL Normal 15-45 [facility] Comment on above: Order Comment: Pily barnhart Type: CEREBROSPINAL FLUID Ordering Facility: [facility] Address: [address] [place] [address] Performed By: #### 2 880-3 #### [facility] CLIA [id number] 1 [place] [address] [place] VDRL CSF-Titron 12-22-2022 Reagin Ab VDRL (CSF) [Titer] Non-Reactive Normal Nonreactive [facility] Comment on above: Order Comment: Pily barnhart Type: CEREBROSPINAL FLUID [facility]ing Facility: [facility] Address: [address] [place] [address] Result Comment: CSF VDRL test is used an aid in diagnosis of neurosyphilis. CSF VDRL detects non-treponemal antibodies and has lower sensitivity than CSF treponemal tests such as FTA, therefore a negative result cannot reliably rule out neurosyphilis. Clinical correlation is required. Performed By: #### 3 1146-4 #### [facility] CLIA [id number] [address] [place] [address] [place] XR LUMBAR PUNCTURE DIAGNon 0 12-22-2022 [facility] XR LUMBAR PUNCTURE DIAGNOSTI Con 12-22-2022 XR LUMBAR PUNCTURE DIAGNOSTIC * * *Final Report* * * DATE OF EXAM: Dec 22 2022 10:57AM [id number] [id number] - XR LUMBAR PUNCTURE DIAGNOSTIC / PROCEDURE REASON: iih * * * * Physician Interpretation * * * * PROCEDURE: Diagnostic and therapeutic lumbar Puncture Under Fluoroscopic Guidance HISTORY: The patient is a 22 years year old Female who presented with headaches and papilledema. Consent: The risks, benefits, treatment options, potential complications, equipment, and personnel to be involved were discussed (including the risks of radiation exposure, contrast and anesthesia administration) with the patient. All of her questions were answered and consent was obtained. The patient indicated she was willing to proceed. General: A) Medication Reconciliation: The patient's medications and allergies were reviewed in the electronic medical record and reconciled to the proposed procedure/treatment. B) Pre-Procedure Medications: Medication #1: None C) Positioning: The patient was placed Prone on the Fluoroscopy table. D) The Lumbar dorsal soft tissues. were then sterile prepped and draped. E) Time Out: A time out was performed immediately prior to procedure start with the nursing, anesthesia and interventional team, correctly identifying the name, medical record number, procedure, anatomy (including marking of site and side), patient position, procedure consent form, relevant diagnostic and radiology test results, antibiotic administration, safety precautions, and procedure-specific equipment needs. Timeout Affirmation (if attending not present): GRAPHIC DESIGN INTERN and RT present. F) Anesthesia Type: administration of local anesthesia. Local Anesthesia: 2% Lidocaine G) Anesthesia Was Administered For A Total Of None. H) Patient Monitoring: N/A TECHNIQUE/RESULT: A) Access Site: A 15 cm 20 gauge spinal needle from a Midline approach at the L4-L5 level. B) Counting reference: Lumbosacral junction. For the purposes of this report, L4-5 is considered the level of the iliac crest. C) Procedure Details: Using sterile procedure, local anesthesia was introduced to the skin and subcutaneous tissues as outlined above. Therapeutic LP Details: Under fluoroscopic guidance, the needle was carefully advanced into the lumbar subarachnoid space resulting in free flow of CSF. Therapeutic Volume: 11 ml of CSF was withdrawn in a sterile fashion from the subarachnoid space and forwarded to the laboratory for analysis. No contrast was administered Opening pressure was recorded at 23 cm H2O Closing pressure was recorded at <15 cm H2O CSF Color: Clear Diagnostic LP Details: Under fluoroscopic guidance, the needle was carefully advanced into the lumbar subarachnoid space resulting in free flow of CSF. Diagnostic Volume: 11 mL of CSF was withdrawn and forwarded to the lab for analysis. Opening pressure was recorded at 23 cm H2O CSF Color: Clear D) Estimated Blood Loss: 0 mL E) Type of Removed Specimens: CSF F) Number of Specimens: 11 mL in 4 tubes Fluoroscopic Radiation Summary: Fluoroscopic guidance was performed in conjunction with the medical lab technician. Plane A, Air Kerma: 1.50 Dose Area Product (DAP): 22.01 Fluoro time: 00:06 min: sec Post-Procedure: Conclusion: The patient was transferred to the Radiology Recovery Room in stable condition. Immediate Complications: None. Delayed Complications (will be reported as an addendum to the original report): None apparent at this time Timeout Time and Procedure Start Time: 0955 Procedure End Time and Sign Out Time: 1010 IMPRESSION: TECHNICALLY SUCCESSFUL THERAPEUTIC AND DIAGNOSTIC LUMBAR PUNCTURE. The procedure was performed by: Emmanuel Velazco CNP Plate Painter Apprentice: ROS Transcribe Date/Time: Dec 22 2022 1:30P Dictated by : EMMANUEL VELAZCO CNP This examination was interpreted and the report reviewed and electronically signed by: EMMANUEL VELAZCO CNP on Dec 22 2022 1:32PM EST [id number] [facility] 12-21-2022 36 Done and approved Normal [facility] 12-17-2022 36 MRI is in pending to deny. Please call for P2P. Normal [facility] [place] [employer] [facility] CNOVon 12-16-2022 CNOV Office Visit ([facility] ) PAMELA ALEGRIA ([id number]) 2000 F Date Time Provider Department 12/16/22 10:00 AM [facility] During your visit today, we recorded the following information about you: Pulse Blood pressure Weight Height 74/minute 113/74 93.4 kg 1.6 m Aretha Denis PA-C 12/16/2022 10:49 AM Signed Neurology Outpatient Clinic Date: December 16, 2022 Patient Name: Pamela Alegria Referring physician: No referring provider defined for this encounter. Primary physician: Ishmael Vu (Fransisco) [address] [place] [address] Reason for Evaluation: Headaches Subjective HPI Pamela Alegria is a 22 year old right-handed female who presents for evaluation of headache. Dr. Ishmael Vu MD is the PCP. Chart review: Has LP scheduled 12/22/22 for papilledema found by ophthalmology. MRI and MRV normal in 09/16, ophtho 11/29/22 with optic edema. Patient has epilepsy appt in January. Patient already seen neurology in August, at the [facility] for possible optic neuritis. MRI of the [...] vomiting or dizziness. Patient did see an fuse cutter who saw papilledema, referred to the emergency department. She did have MRV of the brain and MRI of the orbits performed in August, did ask what the cause of this imaging was, patient was unsure. However, imaging did not show any abnormality and no signs of IIH. On chart review, patient did see Dr. Mackenzie at the [facility] who ordered these imaging studies due to possible papilledema. Patient also notes history of epilepsy, diagnosed by Dr. Velarde in 2018. Is currently on Depakote 500 mg, but states that she is unsure if this is for her bipolar disorder or for seizures. Otherwise, she is compliant. Patient and figuillermina agree that she has not had an [...] night sweats, or significant unintentional weight loss. EY (more content not included)... Normal [facility] Laboratory - Chemistry and C hemistry - challengeon 12-01-2022 HCG ( test) Ql (U) Negative [facility] Basic metabolic 2000 panelon 11-24-2022 Anion gap [Moles/Vol] 10 mmol/L Normal 9-18 [facility] Comment on above: Order Comment: Magalii obey Type: BLOOD SPECIMENOrdering Facility: [facility] Address: [address] [address] Performed By: #### 2 4321-2 ####[facility] [id number] [place] [address] [place] Calcium [Mass/Vol] 9.3 mg/dL Normal 8.5-10.2 [facility] Comment on above: Order Comment: Pily barnhart Type: BLOOD SPECIMENOrdering Facility: [facility] Address: [address] [address] Performed By: #### 2 4321-2 ####[facility] [id number] [place] [address] [place] Chloride [Moles/Vol] 104 mmol/L Normal 97-105 [facility] Comment on above: Order Comment: Pily barnhart Type: BLOOD SPECIMENOrdering Facility: [facility] Address: [address] [address] Performed By: #### 2 4321-2 ####[facility] [id number] [place] [address] [place] CO2 [Moles/Vol] 25 mmol/L Normal 22-30 [facility] Comment on above: Order Comment: Speci men Type: BLOOD SPECIMENOrdering Facility: [facility] Address: [address] [place] [address] Performed By: #### 2 4321-2 ####[facility] [id number] [place] [address] [place] Creatinine [Mass/Vol] 0.59 mg/dL Normal 0.58-0.96 [facility] Comment on above: Order Comment: Speci men Type: BLOOD SPECIMENOrdering Facility: [facility] Address: [address] [place] [address] Performed By: #### 2 4321-2 ####[facility] [id number] [address] [place] ESTIMATED GLOMERULAR FILTRATION RATE 129 mL/min/1.73m??? Normal >=60 [facility] Comment on above: Order Comment: Speci men Type: BLOOD SPECIMENOrdering Facility: [facility] Address: [address] [place] [address] Result Comment: Martha mated Glomerular Filtration Rate (eGFR) is calculated using the 2020 CKD-EPI creatinine equation. This equation utilizes serum creatinine, sex, and age as parameters. The creatinine assay has traceable calibration to isotope dilution-mass spectrometry. Refer to KDIGO guidelines for clinical interpretation. In patients with unstable renal function, e.g. those with acute kidney injury, the eGFR may not accurately reflect actual GFR. Performed By: #### 2 4321-2 ####[facility] [id number] [place] [address] [place] Glucose [Mass/Vol] 98 mg/dL Normal 74-99 [facility] Comment on above: Order Comment: Speci men Type: BLOOD SPECIMENOrdering Facility: [facility] Address: [address] [address] Result Comment: The [place] Diabetes Association (ADA) provides guidance for cutoff values for fasting glucose and random glucose. The ADA defines fasting as no caloric intake for at least 8 hours. Fasting plasma glucose results between 100 to 125 mg/dL indicate increased risk for diabetes (prediabetes). Fasting plasma glucose results greater than or equal to 126 mg/dL meet the criteria for diagnosis of diabetes. In the absence of unequivocal hyperglycemia, results should be confirmed by repeat testing. In a patient with classic symptoms of hyperglycemia or hyperglycemic crisis, random plasma glucose results greater than or equal to 200 mg/dL meet the criteria for diagnosis of diabetes. Reference: Standards of Medical Care in Diabetes 2016, [place] Diabetes Association. Diabetes Care. 2016.39(Suppl 1). Performed By: #### 2 4321-2 ####[facility] [id number] [place] [address] [place] Potassium [Moles/Vol] 3.7 mmol/L Normal 3.7-5.1 [facility] Comment on above: Order Comment: Speci men Type: BLOOD SPECIMENOrdering Facility: [facility] Address: [address] [address] Performed By: #### 2 4321-2 ####[facility] [id number] [place] [address] [place] Sodium [Moles/Vol] 139 mmol/L Normal 136-144 [facility] Comment on above: Order Comment: Speci men Type: BLOOD SPECIMENOrdering Facility: [facility] Address: [address] [address] Performed By: #### 2 4321-2 ####[facility] [id number] [place] [address] [place] Urea nitrogen [Mass/Vol] 9 mg/dL Normal 7-21 [facility] Comment on above: Order Comment: Speci men Type: BLOOD SPECIMENOrdering Facility: [facility] Address: [address] [address] Performed By: #### 2 4321-2 ####[facility] [id number] [address] [place] CBC panel Auto (Bld)on 11-24 Erythrocyte distribution width (RBC) [Ratio] 13.1 % Normal 11.5-15.0 [facility] Comment on above: Order Comment: Speci men Type: BLOOD SPECIMENOrdering Facility: [facility] Address: [address] [place], [place] [id number] Performed By: #### 5 8410-2 ####[facility] [id number] [address] [place] Hematocrit (Bld) [Volume fraction] 38.0 % Normal 36.0-46.0 [facility] Comment on above: Order Comment: Speci men Type: BLOOD SPECIMENOrdering Facility: [facility] Address: [address] [place], [place] [id number] Performed By: #### 5 8410-2 ####[facility] [id number] [address] [place] Hemoglobin (Bld) [Mass/Vol] 12.8 g/dL Normal 11.5-15.5 [facility] Comment on above: Order Comment: Speci men Type: BLOOD SPECIMENOrdering Facility: [facility] Address: [address] [place], [place] [address] Performed By: #### 5 8410-2 ####[facility] [id number] [place] [address] [place] MCH (RBC) [Entitic mass] 30.6 pg Normal 26.0-34.0 [facility] Comment on above: Order Comment: Speci men Type: BLOOD SPECIMENOrdering Facility: [facility] Address: [address] [place], [place] [address] Performed By: #### 5 8410-2 ####[facility] [id number] [place] [address] [place] MCHC (RBC) [Mass/Vol] 33.7 g/dL Normal 30.5-36.0 [facility] Comment on above: Order Comment: Speci men Type: BLOOD SPECIMENOrdering Facility: [facility] Address: [address] [place] [address] Performed By: #### 5 8410-2 ####[facility] [id number] [address] [place] MCV (RBC) [Entitic vol] 90.9 fL Normal 80.0-100.0 [facility] Comment on above: Order Comment: Speci men Type: BLOOD SPECIMENOrdering Facility: [facility] Address: [address] [place] [address] Performed By: #### 5 8410-2 ####[facility] [id number] [address] [place] Nucleated RBC (Bld) [#/Vol] 10*3/uL Normal <0.01 [facility] Comment on above: Order Comment: Speci men Type: BLOOD SPECIMENOrdering Facility: [facility] Address: [address] [place], [place] [address] Performed By: #### 5 8410-2 ####[facility] [id number] [place] [address] [place] Platelet mean volume (Bld) [Entitic vol] 9.9 fL Normal 9.0-12.7 [facility] Comment on above: Order Comment: Speci men Type: BLOOD SPECIMENOrdering Facility: [facility] Address: [address] [place], [place] [address] Performed By: #### 5 8410-2 ####[facility] [id number] [place] [address] [place] Platelets (Bld) [#/Vol] 279 10*3/uL Normal 150-400 [facility] Comment on above: Order Comment: Speci men Type: BLOOD SPECIMENOrdering Facility: [facility] Address: [address] [place] [address] Performed By: #### 5 8410-2 ####[facility] [id number] [place] [address] [place] RBC (Bld) [#/Vol] 4.18 10*6/uL Normal 3.90-5.20 [facility] Comment on above: Order Comment: Speci men Type: BLOOD SPECIMENOrdering Facility: [facility] Address: [address] [place] [address] Performed By: #### 5 8410-2 ####[facility] [id number] [place] [address] [place] WBC (Bld) [#/Vol] 6.35 10*3/uL Normal 3.70-11.00 [facility] Comment on above: Order Comment: Speci men Type: BLOOD SPECIMENOrdering Facility: [facility] Address: [address] [place] [address] Performed By: #### 5 8410-2 ####[facility] [id number] [place] [address] [place] ED PROV NOTEon 11-24-2022 ED PROV NOTE HNO ID: [id number] Author: Ariel Romo MD Service: Emergency Medicine Author Type: Physician Type: ED Provider Notes Filed: 11/25/2022 8:40 PM Note Text: ED Provider Note Patient Name: Pamela Alegria : 2000 SERVICE DATE: 11/24/22 History Patient presents with: Eye Complaint: Sent by [facility] for immediate evaluation for increased fluid in brain and swelling and pain of eyes. HPI Patient is a 22-year-old female with a history of fibromyalgia, migraines, endometriosis, lumbar herniated disc, GERD presenting to the ED for reported papilledema. Patient says she was seen at [facility] recently and was told she had papilledema and that she needed to follow-up immediately. Also says she had recent imaging which showed fluid on her brain. Regarding symptoms, patient says she has bilateral occipital headache/migraine that is persistent despite trying OTC NSAIDs, migraine meds, Tylenol. Has had problems with this migraine for a number of months. Endorses associated photophobia and mild nausea. Patient tends to get episodes mostly at night. She also endorses intermittent blurry vision and bilateral eye pain associated with headaches. Says she is frustrated that nobody has been able to give her answers regarding the papilledema and headaches. Patient denies focal neurodeficits (other than blurry vision as mentioned above), new weakness, ataxia, AMS, abdominal pain, vomiting, chest pain, shortness of breath, lower extremity edema. PAST MEDICAL HISTORY Diagnosis Date Acid reflux [...] History Social History Tobacco Use Smoking status: Every Day Types: Cigarettes Smokeless tobacco: Never Tobacco comments: Vape user Vaping Use Vaping Use: Former Substance and Sexual Activity Alcohol use: Yes Comment: Less than once a week Drug use: No Sexual activity: Yes Partners: Male control/protection: None Comment: educated-not using any form of control ALLERGIES Allergen Reactions Dilaudid Cough Hives, Other: See Comments dILAUDID Morphine Hives Percocet [Oxycodone* Hives Red Dye Hives Tylenol #3 [Codeine] Hives Review of Systems All other systems reviewed and are negative. Physical Exam Vitals BP Pulse Temp Temp src Resp SpO2 Weight Height 11/24/22 1301 11/24/22 1301 11/24/22 1301 11/24/22 1301 11/24/22 1301 11/24/22 1301 11/24/22 1315 11/24/22 1315 127/79 76 37.1 ?C (98.8 ?F) Oral 19 99 % 92.1 kg (203 lb) 1.6 m (5' 3) Physical Exam Physical Exam Vitals and nursing note reviewed. Constitutional: General: Not in acute distress. Appearance: Normal appearance. Not diaphoretic. HENT: Mouth/Throat: Mouth: Mucous membranes are moist. Pharynx: Oropharynx is clear. Eyes: Extraocular Movements: Extraocular movements grossly intact. Pupils: Pupils are equal, round, and reactive to light. Cardiovascular: Rate and Rhythm: Normal rate and regular rhythm. Pulses: Distal pulses intact in bilateral upper and lower extremities. Heart sounds: Normal heart sounds. Pulmonary: Effort: Pulmonary effort is normal. Not in respiratory distress. Breath sounds: Normal breath sounds. Abdominal: General: There is no distension. Palpations: Abdomen is soft. Tenderness: There is no abdominal tenderness. Musculoskeletal: General: No swelling or deformity in bilateral upper AND lower extremities. Skin: General: Skin is warm and dry. Capillary Refill: Capillary refill takes less than 3 seconds. Neurological: General: Motor and sensation grossly intact in bilateral upper and lower extremities. Patient strength in right lower extremity 4 out of 5, strength in left lower extremity 5 out of 5. Patient says this is her baseline since spinal procedure. Mental Status: Alert and oriented to person, place, and time. GCS: 15 Cranial Nerves: No facial asymmetry. CN III-VIII, X-XII intact. Psychiatric: Behavior: Behavior normal. Diagnostic Testing ED Labs Ordered and Reviewed PROTHROMBIN TIME/PT - Abnormal; Notable for the following components: Result Value Ref Range PT Sec 9.6 (*) 9.7 - 13.0 sec INR <0.9 (*) 0.9 - 1.3 All other components within normal limits BASIC METABOLIC PNL - Normal CBC - Normal ACTIVATED PTT - Normal Narrative: Unfractionated Heparin Therapeutic Ranges: Standard Heparin Nomogram: 53 to 78 seconds (anti-Xa level of 0.3 to 0.7 U/ml) Low Dose/ACS Nomogr (more content not included)... Normal [facility] HCG Preg Ur Qlon 11-24-2022 HCG ( test) Ql (U) Negative Normal Negative [facility] Comment on above: Order Comment: Speci men Type: URINE SPECIMENOrdering Facility: [facility] Address: [address] [place] [id number] Result Comment: This test is intended to aid in the early detection of . Very dilute urine samples, as indicated by a low specific gravity, may not contain major account representative levels of hCG. This test detects intact hCG only. This test does not reliably detect hCG degradation products, including free-beta subunit and beta-core fragment. Therefore, this test may show reduced reactivity in urine after 8 weeks gestation. A number of conditions other than , including trophoblastic disease and certain non-trophoblastic neoplasms cause elevated levels of hCG. As with any assay employing mouse antibodies, the possibility exists for interference by human anti-mouse antibodies (HAMA) in the specimen. The test provides a presumptive diagnosis for . Performed By: #### 2 106-3 ####[facility] [id number] [address] [facility] PT panel Coag (PPP)on 2022 INR Coag (PPP) [Relative time] {INR} Low 0.9-1.3 [facility] [place] Comment on above: Order Comment: Speci men Type: BLOOD SPECIMENOrdering Facility: [facility] Address: [address] [address] Result Comment: Jackie min K Antagonist (VKA) Therapeutic Range: INR 2 to 3 (Target INR of 2.5) Note: For patients treated with VKA drugs, such as warfarin, the [employer] 2012 Guideline recommends a therapeutic INR range of 2 to 3 (target INR of 2.5). This recommendation includes high-risk patients with antiphospholipid syndrome with previous arterial or venous thromboembolism, current-generation mechanical or bioprosthetic aortic heart valve replacement. Note: Patients with mechanical aortic valve replacement and additional risk factors for thromboembolic events (atrial fibrillation, previous thromboembolism, LV dysfunction, hypercoagulable conditions) or an older generation mechanical AVR (i.e., ball in-Cage) or any mechanical MVR should have a INR therapeutic range of 2.5 to 3.5 (target INR of 3). Gudelia GH, et al. Chest 2012, 141:7S-47S John PADGETT et al. [facility] 2017, 70: 252-289 Result rechecked. Sample checked for clot. Performed By: #### 3 4528-0, 50380-7 ####[facility] LABIA [id number] [place] [address] [place] PT Coag (PPP) [Time] 9.6 s Low 9.7-13.0 [facility] Comment on above: Order Comment: Speci men Type: BLOOD SPECIMENOrdering Facility: [facility] Address: [address] [place] [address] Performed By: #### 3 4528-0, 72441-4 ####[facility] [id number] [place] [address] [place] aPTT PPPon 11-24-2022 aPTT Coag (PPP) [Time] 28.6 s Normal 23.0-32.[address] [facility] Comment on above: Order Comment: Speci men Type: BLOOD SPECIMENOrdering Facility: [facility] Address: [address] [place] [address] Performed By: #### 3 4528-0, 96322-3 ####[facility] [id number] [place] [address] [place] CBC W Auto Differential pane l (Bld)Ordered By: Taylor Arias on 09-14-2022 Basophils (Bld) [#/Vol] 0.0 10*3/uL 0.0 - 0.2 10*3/uL [facility] Basophils/100 WBC (Bld) 0.5 % 0.0 - 2.0 % [facility] Eosinophils (Bld) [#/Vol] 0.1 10*3/uL 0.0 - 0.5 10*3/uL [facility] Eosinophils/100 WBC (Bld) 0.9 % Low 1.0 - 6.0 % [facility] Erythrocyte distribution width (RBC) [Ratio] 13.4 % 11.5 - 14.5 % [facility] Hematocrit (Bld) [Volume fraction] 42.1 % 35.0 - 47.0 % [facility] Hemoglobin (Bld) [Mass/Vol] 13.7 g/dL 11.7 - 16.0 g/dL [facility] Interpretation and review of laboratory results Abnormal [facility] Lymphocytes (Bld) [#/Vol] 2.8 10*3/uL 1.0 - 4.3 10*3/uL [facility] Lymphocytes/100 WBC (Bld) 43.1 % High 20.0 - 40.0 % [facility] MCH (RBC) [Entitic mass] 30.6 pg 26.0 - 34.0 pg [facility] MCHC (RBC) [Mass/Vol] 32.6 % 32.0 - 36.0 % [facility] MCV (RBC) [Entitic vol] 93.7 fL 80.0 - 98.0 fL [facility] Monocytes (Bld) [#/Vol] 0.5 10*3/uL 0.0 - 0.8 10*3/uL [facility] Monocytes/100 WBC (Bld) 7.7 % 2.0 - 10.0 % [facility] Neutrophils (Bld) [#/Vol] 3.1 10*3/uL 1.8 - 7.0 10*3/uL [facility] Neutrophils/100 WBC (Bld) 47.8 % 40.0 - 80.0 % [facility] Nucleated RBC/100 WBC (Bld) [Ratio] 0.1 % [facility] Platelet mean volume (Bld) [Entitic vol] 8.0 fL 7.4 - 12.4 fL [facility] Platelets (Bld) [#/Vol] 299 10*3/uL 140 - 440 10*3/uL [facility] RBC (Bld) [#/Vol] 4.49 10*6/uL 3.8 - 5.20 10*6/uL [facility] WBC (Bld) [#/Vol] 6.5 10*3/uL 3.6 - 10.7 10*3/uL [facility] HCG ( test) Ql (U)o n 09-14-2022 Beta HCG ( test) Ql (U) [id number] [facility] Interpretation and review of laboratory results Normal [facility] NEGATIVE QC Pass [facility] POSITIVE QC Pass [facility] Preg Test, Ur Negative Negative [facility] No Panel Informationon 09-14 There is no interpretation needed for this exam. IMAGING MRI ORBIT WO/W IVCONon 09-08 MRI ORBIT WO/W IVCON * * *Final Report* * * DATE OF EXAM: Sep 08 2022 3:04PM LDM 0311 - MRI ORBIT WO/W IVCON / PROCEDURE REASON: multiple diagnoses * * * * Physician Interpretation * * * * EXAMINATION: MRI ORBIT WO/W IVCON, MRV BRAIN WO/W IVCON HISTORY: Papilledema Optic neuritis Idiopathic intracranial hypertension TECHNIQUE: MRI ORBIT WO/W IVCON, MRV BRAIN WO/W IVCON. TECHNIQUE: Intracranial 2D hnfu-vt-iejokj MRV without contrast with 2D multiplanar and 3D maximum intensity projections calculated on the imaging workstation under physician supervision. COMPARISON: 07/01/[address] RESULT: Intracranial MRV: The major intracranial venous sinuses are patent, including the superior sagittal sinus, the straight sinus and the right and left transverse and sigmoid sinuses. The major deep and superficial cerebral veins are patent, including the internal cerebral veins. No venous filling defect is identified to suggest intracranial venous thrombosis. IMPRESSION: No evidence of intracranial venous thrombosis. Orbits: Ocular globes-normal morphology and signal intensity. Normal position Optic nerve/nerve sheaths-normal morphology and signal intensity. No evidence of optic nerve atrophy or optic neuritis. Ocular muscles-normal morphology and signal intensity. No signs of abnormal enlargement or inflammation. Orbital fat-unremarkable. Lacrimal glands-normal. Sella turcica, suprasellar cistern, optic chiasm complex cavernous sinus-unremarkable. Occipital lobe/optic radiations-unremarkable . Acute Change: No evidence restricted diffusion indicating acute infarction Hemorrhage: No evidence of prior parenchymal hemorrhage on the gradient echo images. Mass Lesion/ Mass Effect: No evidence of an intracranial mass or extra-axial fluid collection. No significant mass effect. Chronic Change: The white matter is within normal limits of signal intensity for age. Parenchyma: No significant volume loss for age. The brain parenchyma is otherwise within normal limits of signal intensity and morphology. No evidence of demyelinating lesions Ventricles: Normal caliber and morphology. Skull Base: Hypothalamic and pituitary region are grossly normal. Craniocervical junction is normal. Normal cerebellar tonsillar position. No significant marrow replacement process. Vasculature: Major intracranial arterial structures, and dural venous sinuses show typical flow void, suggesting patency by spin echo criteria. Other: Left maxillary sinus retention cyst IMPRESSION: Negative enhanced and nonenhanced MRI of the orbits. No MRI evidence of idiopathic intracranial hypertension. No MRI evidence of optic neuritis. Unremarkable intracranial MRV Plate Painter Apprentice: ROS Transcribe Date/Time: Sep 12 2022 11:07A Dictated by : RL JAMA MD This examination was interpreted and the report reviewed and electronically signed by: RL JAMA MD on Sep 12 2022 12:18PM EST [id number] Normal [facility] MRV BRAIN WO/W IVCONon 09-08 MRV BRAIN WO/W IVCON * * *Final Report* * * DATE OF EXAM: Sep 08 2022 3:04PM LDM 0336 - MRV BRAIN WO/W IVCON / PROCEDURE REASON: multiple diagnoses * * * * Physician Interpretation * * * * EXAMINATION: MRI ORBIT WO/W IVCON, MRV BRAIN WO/W IVCON HISTORY: Papilledema Optic neuritis Idiopathic intracranial hypertension TECHNIQUE: MRI ORBIT WO/W IVCON, MRV BRAIN WO/W IVCON. TECHNIQUE: Intracranial 2D wbdn-ys-ckkpga MRV without contrast with 2D multiplanar and 3D maximum intensity projections calculated on the imaging workstation under physician supervision. COMPARISON: 07/01/[address] RESULT: Intracranial MRV: The major intracranial venous sinuses are patent, including the superior sagittal sinus, the straight sinus and the right and left transverse and sigmoid sinuses. The major deep and superficial cerebral veins are patent, including the internal cerebral veins. No venous filling defect is identified to suggest intracranial venous thrombosis. IMPRESSION: No evidence of intracranial venous thrombosis. Orbits: Ocular globes-normal morphology and signal intensity. Normal position Optic nerve/nerve sheaths-normal morphology and signal intensity. No evidence of optic nerve atrophy or optic neuritis. Ocular muscles-normal morphology and signal intensity. No signs of abnormal enlargement or inflammation. Orbital fat-unremarkable. Lacrimal glands-normal. Sella turcica, suprasellar cistern, optic chiasm complex cavernous sinus-unremarkable. Occipital lobe/optic radiations-unremarkable . Acute Change: No evidence restricted diffusion indicating acute infarction Hemorrhage: No evidence of prior parenchymal hemorrhage on the gradient echo images. Mass Lesion/ Mass Effect: No evidence of an intracranial mass or extra-axial fluid collection. No significant mass effect. Chronic Change: The white matter is within normal limits of signal intensity for age. Parenchyma: No significant volume loss for age. The brain parenchyma is otherwise within normal limits of signal intensity and morphology. No evidence of demyelinating lesions Ventricles: Normal caliber and morphology. Skull Base: Hypothalamic and pituitary region are grossly normal. Craniocervical junction is normal. Normal cerebellar tonsillar position. No significant marrow replacement process. Vasculature: Major intracranial arterial structures, and dural venous sinuses show typical flow void, suggesting patency by spin echo criteria. Other: Left maxillary sinus retention cyst IMPRESSION: Negative enhanced and nonenhanced MRI of the orbits. No MRI evidence of idiopathic intracranial hypertension. No MRI evidence of optic neuritis. Unremarkable intracranial MRV Plate Painter Apprentice: [facility] Transcribe Date/Time: Sep 12 2022 11:07A Dictated by : RL JAMA MD This examination was interpreted and the report reviewed and electronically signed by: RL JAMA MD on Sep 12 2022 12:18PM EST [id number] Normal [facility] ABELINO SerPl-cCncon 08-27-2022 Angiotensin converting enzyme [Catalytic activity/Vol] 27 U/L Normal <=52 [facility] Comment on above: Order Comment: Pily barnhart Type: BLOOD SPECIMENOrdering Facility: [facility] Address: [address] [address] Result Comment: Vonnie ficially low ABELINO levels may be found for patients taking ABELINO inhibitors or after the administration of gadolinium. This test was developed and its performance characteristics determined by [facility]'s [facility] Pathology and Laboratory Medicine [place] ([facility]). It has not been cleared or approved by the FDA. [facility] is regulated under CLIA as qualified to perform high-complexity testing. This test is used for clinical purposes. It should not be regarded as investigational or for research. Performed By: #### 2 742-5 ####[facility] LABCLIA [id number] [place] [address] [place] ERICA BY IFA WITH REFLEXon Nuclear Ab IF (S) [Titer] Negative Normal Negative [facility] Comment on above: Order Comment: Pily barnhart Type: BLOOD SPECIMENOrdering Facility: [facility] Address: [address] [phone] Result Comment: Anti -nuclear antibody test is used as an aid in diagnosis of systemic autoimmune diseases. Where positive and clinically warranted, follow-up using disease-specific testing is recommended. Low positive titers are not uncommon with advanced age, certain chronic infections, and malignancies among others. Test methodology: Indirect fluorescence immunoassay (IFA) using HEp-2 cells. Performed By: #### A NAIFR ####[facility] LABCLIA [id number] [facility] [id number] [place] [address] OF [facility] SALES EXPERT HOME THEATER DEMYELINATING DISEASE EV ALUATION, SERUMon 08-27-2022 SALES EXPERT HOME THEATER DEMYELINATING DISEASE INTERP, S SEE NOTE Normal [facility] Comment on above: Order Comment: Pily barnhart Type: BLOOD SPECIMENOrdering Facility: [facility] Address: [address] [place] [address] Result Comment: No i nformative autoantibodies were detected in this evaluation. A negative result does not preclude a diagnosis of an inflammatory SALES EXPERT HOME THEATER demyelinating disorder. Performed By: #### Selina CONNOLLY ####[facility] RE[facility] LABCLIA [id number] [address] [address] MYELIN OLIGODENDROCYTE GLYCOPROTEIN (MOG-IGG1) FLUORESCENCE-ACTIVATED CELL Negative Normal Negative [facility] Comment on above: Order Comment: Pily barnhart Type: BLOOD SPECIMENOrdering Facility: [facility] Address: [address] [place] [address] Result Comment: ADDITIONAL INFORMATION This test was developed and its performance characteristics determined by [facility] in a manner consistent with CLIA requirements. This test has not been cleared or approved by the U.S. Food and Drug Administration. Test Performed by: [facility] [address] [place] [address] Ground Products Director: Kwasi Lr M.D. Ph.D.; CLIA# [id number] Performed By: #### C DS1SE ####[facility] LABCLIA [id number] [place] [address] NMO/AQPF FACS, S Negative Normal Negative [facility] Comment on above: Order Comment: Pily barnhart Type: BLOOD SPECIMENOrdering Facility: [facility] Address: [address] [place] [address] Result Comment: ADDITIONAL INFORMATION This test was developed and its performance characteristics determined by [facility] in a manner consistent with CLIA requirements. This test has not been cleared or approved by the U.S. Food and Drug Administration. Performed By: #### C DS1SE ####[facility] LABCLIA [id number] [place] [address] Centromere Ab IF Ql (S)on Centromere Ab Qn (S) <0.2 Normal <1.0 [facility] Comment on above: Order Comment: Pily barnhart Type: BLOOD SPECIMENOrdering Facility: [facility] Address: [address] [place] [address] Result Comment: Anti -centromere antibody is used as in aid in diagnosis of systemic sclerosis. Clinical correlation is required. Test Methodology: Multiplex flow immunoassay. Performed By: #### 1 7792-3, 65963-3, 14151-0, 89948-1, 70910-0, 18451-2, 76853-1, 75306-7 ####[facility] LABCLIA [id number] [place] [address] [place] CENTROMERE AB QUAL Negative Normal Negative [facility] Comment on above: Order Comment: Pily barnhart Type: BLOOD SPECIMENOrdering Facility: [facility] Address: [address] [phone] Performed By: #### 1 7792-3, 71704-2, 51300-1, 02384-4, 40488-4, 16921-4, 97896-0, 74551-4 ####[facility] LABCLIA [id number] [address] [address] [place] Chromatin Ab Qnon 08-27-2022 CHROMATIN AB QUAL Negative Normal Negative [facility] Comment on above: Order Comment: Speci men Type: BLOOD SPECIMENOrdering Facility: [facility] Address: [address] [place] [address] Performed By: #### 1 7792-3, 09798-1, 95329-6, 04813-7, 17066-2, 73449-4, 36453-7, 22659-3 ####[facility] LABCLIA [id number] [place] [address] [place] Chromatin Ab SerPl-aCncon Chromatin Ab Qn <0.2 Normal <1.0 [facility] Comment on above: Order Comment: Speci men Type: BLOOD SPECIMENOrdering Facility: [facility] Address: [address] [place] [address] Result Comment: Test Methodology: Multiplex flow immunoassay. Performed By: #### 1 7792-3, 26307-8, 23771-9, 91786-9, 64855-2, 01853-2, 98608-0, 32196-3 ####[facility] LABIA [id number] [place] [address] [place] DORA Jo1 Ab Ser-aCncon 2022 Felicita-1 extractable nuclear Ab Qn (S) <0.2 Normal <1.0 [facility] Comment on above: Order Comment: Speci men Type: BLOOD SPECIMENOrdering Facility: [facility] Address: [address] [place] [address] Performed By: #### 1 7792-3, 10556-9, 09503-4, 18775-4, 22561-5, 45917-2, 16215-3, 67189-1 ####[facility] LABCLIA [id number] [place] [address] [place] DORA UNIVERSITY RELATIONS VICE PRESIDENT Ab Ser-aCncon 2022 Ribonucleoprotein extractable nuclear Ab Qn (S) <0.2 Normal <1.0 [facility] Comment on above: Order Comment: Speci men Type: BLOOD SPECIMENOrdering Facility: [facility] Address: [address] [place] [address] Performed By: #### 1 7792-3, 16416-9, 43078-5, 85763-4, 29127-4, 53100-0, 71989-3, 04310-4 ####[facility] LABCLIA [id number] [place] [address] [place] DORA SM IgG Ser-aCncon 2022 Raygoza extractable nuclear IgG Qn (S) <0.2 Normal <1.0 [facility] Comment on above: Order Comment: Speci men Type: BLOOD SPECIMENOrdering Facility: [facility] Address: [address] [place] [address] Performed By: #### 1 7792-3, 00835-0, 06545-7, 66882-0, 51165-4, 01067-3, 14039-8, 15842-9 ####[facility] LABCLIA [id number] [place] [address] [place] DORA SS-A Ab Ser-aCncon 08-27 Sjogrens syndrome-A extractable nuclear Ab Qn (S) <0.2 Normal <1.0 [facility] Comment on above: Order Comment: Speci men Type: BLOOD SPECIMENOrdering Facility: [facility] Address: [address] [place] [address] Result Comment: Test Methodology: Multiplex flow immunoassay. Performed By: #### 1 7792-3, 01759-6, 31650-4, 30744-5, 36910-9, 66540-9, 54275-7, 29784-1 ####[facility] LABCLIA [id number] [place] [address] [place] DORA SS-B Ab Ser-aCncon 08-27 Sjogrens syndrome-B extractable nuclear Ab Qn (S) <0.2 Normal <1.0 [facility] Comment on above: Order Comment: Pily barnhart Type: BLOOD SPECIMENOrdering Facility: [facility] Address: [address] [place] [address] Result Comment: Anti -SSB (anti-La) antibody is used as an aid in diagnosis of a variety of systemic autoimmune diseases, especially for Sjogren's syndrome and systemic lupus erythematosus. Clinical correlation is required. Test Methodology: Multiplex flow immunoassay. Performed By: #### 1 7792-3, 69303-8, 80603-5, 20881-7, 88889-1, 76425-4, 11463-5, 83926-6 ####[facility] LABCLIA [id number] [place] [address] [place] Hcys SerPl-sCncon 08-27-2022 Homocysteine [Moles/Vol] 11.4 umol/L Normal <15.1 [facility] Comment on above: Order Comment: Pily barnhart Type: BLOOD SPECIMEN [facility] Address: [address] [place] [address] Performed By: #### 1 3965-9 #### [facility] CLIA [id number] [address] [place] [address] [place] Felicita-1 extractable nuclear Ab Qn (S)on 08-27-2022 FELICITA 1 ANTIBODY QUAL Negative Normal Negative [facility] Comment on above: Order Comment: Pily barnhart Type: BLOOD SPECIMENOrdering Facility: [facility] Address: [address] [place] [address] Result Comment: Anti -FELICITA-1 antibody is used as an aid in diagnosis of polymyositis and dermatomyositis especially with pulmonary involvement. A negative result cannot rule out polymyositis or dermatomyositis. Clinical correlation is required. Test Methodology: Multiplex flow immunoassay. Performed By: #### 1 7792-3, 02573-7, 41201-0, 71303-0, 78876-5, 98631-6, 16318-6, 12245-6 ####[facility] LABCLIA [id number] [place] [address] [place] Methylmalonate SerPl-sCncon 08-27-2022 Methylmalonate [Moles/Vol] 152 nmol/L Normal 79-376 [facility] Comment on above: Order Comment: Pily barnhart Type: BLOOD SPECIMENOrdering Facility: [facility] Address: [address] [place] [address] Result Comment: This test was developed and its performance characteristics determined by [facility] [place] ([facility]). It has not been cleared or approved by the FDA. [facility] is regulated under CLIA as qualified to perform high-complexity testing. This test is used for clinical purposes. It should not be regarded as investigational or for research. Performed By: #### 1 3964-2 ####[facility] LABIA [id number] [place] [address] [place] Ribonucleoprotein extractabl e nuclear Ab Qn (S)on 08-27-2022 ANTI-UNIVERSITY RELATIONS VICE PRESIDENT QUAL Negative Normal Negative [facility] Comment on above: Order Comment: Pily barnhart Type: BLOOD SPECIMENOrdering Facility: [facility] Address: [address] [place] [address] Performed By: #### 1 7792-3, 85481-2, 75982-2, 42278-7, 87615-9, 94010-3, 14914-1, 96608-7 ####[facility] LABIA [id number] [place] [address] [place] RIBOSOMAL UNIVERSITY RELATIONS VICE PRESIDENT QUAL Negative Normal Negative [facility] Comment on above: Order Comment: Pily barnhart Type: BLOOD SPECIMENOrdering Facility: [facility] Address: [address] [place] [address] Result Comment: Anti -Ribosomal RNA (Ribosomal P) antibody is used as an aid in diagnosis of systemic autoimmune diseases especially systemic lupus erythematosus and mixed connective tissue disease. Cross-reactivity with Anti-raygoza antibody is not uncommon. Clinical correlation is required. Test Methodology: Multiplex flow immunoassay. Performed By: #### 1 7792-3, 22268-5, 23442-1, 20547-4, 11240-5, 10073-7, 22460-3, 98156-3 ####[facility] [id number] [place] [address] [place] SCL-70 extractable nuclear I gG IA Qn (S)on 08-27-2022 SCLERODERMA AB QUAL Negative Normal Negative [facility] Comment on above: Order Comment: Speci men Type: BLOOD SPECIMENOrdering Facility: [facility] Address: [address] [address] Performed By: #### 1 7792-3, 30992-1, 37886-9, 77754-0, 50519-3, 28887-0, 13237-3, 81306-2 ####[facility] [id number] [place] SCLERODERMA IGG AB 0.2 AI Normal <1.0 [facility] Comment on above: Order Comment: Speci men Type: BLOOD SPECIMENOrdering Facility: [facility] Address: [address] [place] [address] Result Comment: Scl- 70/Scleroderma antibody test is used as an aid in diagnosis of systemic sclerosis especially the diffuse cutaneous form. A negative result cannot rule out systemic sclerosis. The final interpretation should consider clinical picture and other test results such as anti-centromere antibody. Test Methodology: Multiplex flow immunoassay. Performed By: #### 1 7792-3, 88007-5, 33921-1, 84036-2, 04619-8, 58636-3, 11801-9, 58439-9 ####[facility] [id number] [place] [address] [place] Sjogrens syndrome-A extracta ble nuclear Ab Qn (S)on 08-27-2022 SSA ANTIBODY QUAL Negative Normal Negative [facility] Comment on above: Order Comment: Speci men Type: BLOOD SPECIMENOrdering Facility: [facility] Address: [address] [address] Performed By: #### 1 7792-3, 29354-4, 28592-1, 54898-9, 63169-7, 64865-2, 41813-2, 23789-6 ####[facility] LABCLIA [id number] [address] [place] Sjogrens syndrome-B extracta ble nuclear Ab Qn (S)on 08-27-2022 SSB ANTIBODY QUAL Negative Normal Negative [facility] Comment on above: Order Comment: Speci men Type: BLOOD SPECIMENOrdering Facility: [facility] Address: [address] [place] [address] Performed By: #### 1 7792-3, 21970-3, 25396-1, 31433-2, 65791-3, 23120-4, 28458-1, 91208-5 ####[facility] [id number] [address] Rayogza extractable nuclear Ig G Qn (S)on 08-27-2022 SM ANTIBODY QUAL Negative Normal Negative [facility] Comment on above: Order Comment: Pily barnhart Type: BLOOD SPECIMENOrdering Facility: [facility] Address: [address] [place] [address] Result Comment: Anti -Sm (Raygoza) antibody is used as an aid in diagnosis of systemic lupus erythematosus and its presence is associated with renal disease. A negative result cannot rule out systemic lupus erythematosus. Clinical correlation is required. Test Methodology: Multiplex flow immunoassay. Performed By: #### 1 7792-3, 98485-6, 52643-1, 07176-6, 80926-4, 69835-5, 95283-0, 30711-5 ####[facility] LABIA [id number] [place] [address] [place] Vit B12 SerPl-mCncon 023 Cobalamin (Vitamin B12) [Mass/Vol] 237 pg/mL Normal 232-1245 [facility] Comment on above: Order Comment: Speci men Type: BLOOD SPECIMENOrdering Facility: [facility] Address: [address] [place] [address] Performed By: #### 2 132-9 ####[facility] LABCLIA [id number] [id number] [id number] [place] CNOVon 08-25-2022 CNOV Office Visit (NEMSMN ) PAMELA ALEGRIA ([id number]) 2000 F Date Time Provider Department 08/25/22 1:15 PM TAZ MACKENZIE During your visit today, we recorded the following information about you: Pulse Blood pressure Weight Height 89/minute 124/84 77.1 kg 1.6 m Taz Mackenzie MD 08/25/2022 4:23 PM Signed [facility] NEW PATIENT EVALUATION/CONSULTATION Referral source: Milly Lockwood MD [address] [facility] [address] Also followed by: Patient Care Team: sIhmael Vu MD as PCP - General (Internal [...] expected to be with me at the [facility]. Ms. Pamela Alegria is here today for possible optic neuritis. A few days ago, her fuse cutter told her that she had optic disc swelling and mildly elevated intra-ocular pressure (while at a routine check up) and sent her to the ER immediately after at [facility]. They told her that she had swelling in the back of her eyes. At the hospital, they ran labs and told her nothing is wrong. MRI and labs were completed but she does not have the results. A few days following the ER visit, she went back to the fuse cutter who suggested that she be seen at the [facility]. She is scheduled to follow up with ophthalmology in October 2022. Her fuse cutter is Dr. Milly Lockwood at [facility]: [phone] During this time, she has not noticed any problems with her vision and denies any BREAUX. Surgery for a herniated disc is scheduled for 14 SEP 2022 at [facility] - laminectomy, L5 /S1. For the past few years, she has experienced chronic pain and her right leg gives out constantly. 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 Multiple Sclerosis Performance Test Flowsheet Row Office Visit from 08/25/2022 in [facility] Processing Speed Total Number Correct 32 Low-contrast [...] full to confrontation. Pupils were 4 mm (more content not included)... Normal [facility] Absolute lymphocyte countOrd ered By: Dr. Neil on 08-11-2022 Lymphocytes Auto (Unsp spec) [#/Vol] 2.17 10*3/uL 0.83-4.51 [facility] Basophil percentageOrdered B y: Dr. Neil on 08-11-2022 Basophils/100 WBC (Bld) 0.6 % 0-1 [facility] Bilirubin [Mass/Vol] 0.60 mg/dL 0.20-1.00 [facility] Comment on above: For patients on eltr ombopag therapy, use of Dimension [place] TBIL is not recommended. Chloride [Moles/Vol] 106 mmol/L 98-107 [facility] Eosinophils/100 WBC (Bld) 1.0 % 0-5 [facility] Glucose [Mass/Vol] 100 mg/dL 74-106 [facility] Comment on above: Fasting Glucose resu lt from 100 to 125 mg/dL suggests IMPAIRED HOMEOSTASIS per A.D.A. criteria. Neutrophils (Bld) [#/Vol] 2.7 10*3/uL 2.0-7.7 [facility] Neutrophils/100 WBC (Bld) 50.4 % 47-70 [facility] Potassium [Moles/Vol] 3.6 mmol/L 3.5-5.1 [facility] Protein [Mass/Vol] 7.9 g/dL 6.4-8.2 [facility] Sodium [Moles/Vol] 138 mmol/L 136-145 [facility] WBC (Bld) [#/Vol] 5.3 10*3/uL 4.4-11.0 [facility] Beta hCG serum qualOrdered B y: Dr. Neil on 08-11-2022 Beta HCG ( test) Ql Negative [facility] Blood erythrocytes count (nu mber/volume)Ordered By: Dr. Neil on 08-11-2022 RBC (Bld) [#/Vol] 4.21 10*6/uL 4.2-5.4 [facility] Blood hemoglobin measurement (mass/volume)Ordered By: Dr. Neil on 08-11-2022 Hemoglobin (Bld) [Mass/Vol] 12.8 g/dL 12.0-15.0 [facility] Blood lymphocytes/100 leukoc ytesOrdered By: Dr. Neil on 08-11-2022 Lymphocytes/100 WBC (Bld) 41.3 % 19-41 [facility] Blood monocytes/100 leukocyt esOrdered By: Dr. Neil on 08-11-2022 Monocytes/100 WBC (Bld) 6.3 % 0-10 [facility] Blood platelet mean volumeOr dered By: Dr. Neil on 08-11-2022 Platelet mean volume (Bld) [Entitic vol] 10.0 fL 6.2-12.0 [facility] Determination of erythrocyte mean corpuscular volume (MCV)Ordered By: Dr. Neil on 08-11-2022 MCV (RBC) [Entitic vol] 93.1 fL 81-99 [facility] Hematocrit Auto (Bld) [Volum e fraction]Ordered By: Dr. Neil on 08-11-2022 Hematocrit (Bld) [Volume fraction] 39.2 % 37-47 [facility] INR in Blood by Coagulation assayOrdered By: Dr. Neil on 08-11-2022 INR Coag (Bld) [Relative time] 1.0 {INR} [facility] Laboratory - Chemistry and C hemistry - challengeOrdered By: Dr. Neil on 08-11-2022 ALP [Catalytic activity/Vol] 60 U/L 45-117 [facility] ALT [Catalytic activity/Vol] 18 U/L 13-56 [facility] CO2 [Moles/Vol] 26.0 mmol/L 21.0-32.0 [facility] Globulin (S) [Mass/Vol] 3.7 g/dL 2.2-4.2 [facility] Urea nitrogen/Creatinine [Mass ratio] 22.0 mg/mg 10-20 [facility] Laboratory - CoagulationOrde red By: Dr. Neil on 08-11-2022 aPTT Coag (Bld) [Time] 30.3 s 24.1-36.2 [facility] PT Coag (PPP) [Time] 13.3 s 11.7-14.9 [facility] Laboratory - Hematology and Cell countsOrdered By: Dr. Neil on 08-11-2022 Erythrocyte distribution width (RBC) [Entitic vol] 45.3 fL 35.1-43.9 [facility] Erythrocyte distribution width (RBC) [Ratio] 13.3 % 11.6-14.6 [facility] Immature granulocytes/100 WBC (Bld) 0.400 % 0.0-0.9 [facility] Comment on above: IG% - Immature Granu locytes (promyelocytes, myelocytes and metamyelocytes) > 1% indicates that a LEFT SHIFT is Present. MCH (RBC) [Entitic mass] 30.4 pg 27.0-32.0 [facility] Nucleated RBC/100 WBC (Bld) [Ratio] 0 % 0-5 [facility] MCHC Auto (RBC) [Mass/Vol]Or dered By: Dr. Neil on 08-11-2022 MCHC (RBC) [Mass/Vol] 32.7 g/dL 32-36 [facility] No Panel InformationOrdered By: Dr. Neil on 08-11-2022 Estimated Creatinine Clearance Calc 112.12 ml/min [facility] Estimated GFR (MDRD) Amer 147 mL/min >60 [facility] Comment on above: GFR Calc Estimated GFR (MDRD) Non-Af Amer 122 mL/min >60 [facility] Comment on above: Non- GFR Calc Platelets bldOrdered By: Dr. Neil on 08-11-2022 Platelets (Bld) [#/Vol] 267 10*3/uL 150-450 [facility] Serum or plasma albumin fabio urement (mass/volume)Ordered By: Dr. Neil on 08-11-2022 Albumin [Mass/Vol] 4.2 g/dL 3.2-5.0 [facility] Serum or plasma albumin/glob ulin mass ratioOrdered By: Dr. Neil on 08-11-2022 Albumin/Globulin [Mass ratio] 1.1 {ratio} 0.9-2.4 [facility] Serum or plasma calcium fabio urement (mass/volume)Ordered By: Dr. Neil on 08-11-2022 Calcium [Mass/Vol] 9.5 mg/dL 8.5-10.1 [facility] Serum or plasma creatinine m easurement (mass/volume)Ordered By: Dr. Neil on 08-11-2022 Creatinine [Mass/Vol] 0.64 mg/dL 0.55-1.02 [facility] Comment on above: The validity of the calculated GFR & GFRAA in patients over 70 years has not been determined. Clinical correlation is essential. Serum or plasma urea nitroge n measurement (mass/volume)Ordered By: Dr. Neil on 08-11-2022 Urea nitrogen [Mass/Vol] 14 mg/dL 7-18 [facility] Thin prep Papanicolaou smear with manual screeningOrdered By: Dr. Neil on 08-11-2022 Thin prep Papanicolaou smear with manual screening 11 U/L 15-37 [facility] Thin prep Papanicolaou smear with manual screening 6 5-15 [facility] Absolute lymphocyte countOrd ered By: Vero Hendrickson on 08-05-2022 Lymphocytes Auto (Unsp spec) [#/Vol] 2.27 10*3/uL 0.83-4.51 [facility] Basophil percentageOrdered B y: Vero Hendrickson on 01-12-2023 Basophils/100 WBC (Bld) 0.4 % 0-1 [facility] Bilirubin [Mass/Vol] 0.40 mg/dL 0.20-1.00 [facility] Comment on above: For patients on eltr ombopag therapy, use of Dimension [place] TBIL is not recommended. Chloride [Moles/Vol] 102 mmol/L 98-107 [facility] Eosinophils/100 WBC (Bld) 1.9 % 0-5 [facility] Glucose [Mass/Vol] 89 mg/dL 74-106 [facility] Neutrophils (Bld) [#/Vol] 2.4 10*3/uL 2.0-7.7 [facility] Neutrophils/100 WBC (Bld) 45.8 % 47-70 [facility] Potassium [Moles/Vol] 3.9 mmol/L 3.5-5.1 [facility] Protein [Mass/Vol] 7.9 g/dL 6.4-8.2 [facility] Sodium [Moles/Vol] 137 mmol/L 136-145 [facility] WBC (Bld) [#/Vol] 5.2 10*3/uL 4.4-11.0 [facility] Blood erythrocytes count (nu mber/volume)Ordered By: Vero Hendrickson on 08-05-2022 RBC (Bld) [#/Vol] 4.44 10*6/uL 4.2-5.4 [facility] Blood hemoglobin measurement (mass/volume)Ordered By: Vero Hendrickson on 08-05-2022 Hemoglobin (Bld) [Mass/Vol] 13.3 g/dL 12.0-15.0 [facility] Blood lymphocytes/100 leukoc ytesOrdered By: Vero Hendrickson on 08-05-2022 Lymphocytes/100 WBC (Bld) 44.1 % 19-41 [facility] Blood monocytes/100 leukocyt esOrdered By: Vero Hendrickson on 08-05-2022 Monocytes/100 WBC (Bld) 7.6 % 0-10 [facility] Blood platelet mean volumeOr dered By: Vero Hendrickson on 08-05-2022 Platelet mean volume (Bld) [Entitic vol] 10.4 fL 6.2-12.0 [facility] Determination of erythrocyte mean corpuscular volume (MCV)Ordered By: Vero Hendrickson on 08-05-2022 MCV (RBC) [Entitic vol] 93.9 fL 81-99 [facility] Hematocrit Auto (Bld) [Volum e fraction]Ordered By: Vero Hendrickson on 08-05-2022 Hematocrit (Bld) [Volume fraction] 41.7 % 37-47 [facility] Laboratory - Chemistry and C hemistry - challengeOrdered By: Vero Hendrickson on 08-05-2022 ALP [Catalytic activity/Vol] 62 U/L 45-117 [facility] ALT [Catalytic activity/Vol] 21 U/L 13-56 [facility] CO2 [Moles/Vol] 29.0 mmol/L 21.0-32.0 [facility] Globulin (S) [Mass/Vol] 3.8 g/dL 2.2-4.2 [facility] Urea nitrogen/Creatinine [Mass ratio] 19.3 mg/mg 10-20 [facility] Laboratory - Hematology and Cell countsOrdered By: Verojero Hendrickson on 08-05-2022 Erythrocyte distribution width (RBC) [Entitic vol] 45.2 fL 35.1-43.9 [facility] Erythrocyte distribution width (RBC) [Ratio] 13.2 % 11.6-14.6 [facility] Immature granulocytes/100 WBC (Bld) 0.200 % 0.0-0.9 [facility] Comment on above: IG% - Immature Granu locytes (promyelocytes, myelocytes and metamyelocytes) > 1% indicates that a LEFT SHIFT is Present. MCH (RBC) [Entitic mass] 30.0 pg 27.0-32.0 [facility] Nucleated RBC/100 WBC (Bld) [Ratio] 0 % 0-5 [facility] MCHC Auto (RBC) [Mass/Vol]Or dered By: Vero Hendrickson on 08-05-2022 MCHC (RBC) [Mass/Vol] 31.9 g/dL 32-36 [facility] No Panel InformationOrdered By: Vero Hendrickson on 08-05-2022 Estimated GFR (MDRD) Amer 126 mL/min >60 [facility] Comment on above: GFR Calc Estimated GFR (MDRD) Non-Af Amer 104 mL/min >60 [facility] Comment on above: Non- GFR Calc Platelets bldOrdered By: Ignacio Hendrickson on 08-05-2022 Platelets (Bld) [#/Vol] 298 10*3/uL 150-450 [facility] Serum or plasma albumin fabio urement (mass/volume)Ordered By: Vero Hendrickson on 08-05-2022 Albumin [Mass/Vol] 4.1 g/dL 3.2-5.0 [facility] Serum or plasma albumin/glob ulin mass ratioOrdered By: Vero Hendrickson on 08-05-2022 Albumin/Globulin [Mass ratio] 1.1 {ratio} 0.9-2.4 [facility] Serum or plasma calcium fabio urement (mass/volume)Ordered By: Vero Hendrickson on 08-05-2022 Calcium [Mass/Vol] 9.3 mg/dL 8.5-10.1 [facility] Serum or plasma creatinine m easurement (mass/volume)Ordered By: Vero Hendrickson on 08-05-2022 Creatinine [Mass/Vol] 0.73 mg/dL 0.55-1.02 [facility] Comment on above: The validity of the calculated GFR & GFRAA in patients over 70 years has not been determined. Clinical correlation is essential. Serum or plasma urea nitroge n measurement (mass/volume)Ordered By: Vero Hendrickson on 08-05-2022 Urea nitrogen [Mass/Vol] 14 mg/dL 7-18 [facility] Thin prep Papanicolaou smear with manual screeningOrdered By: Vero Hendrickson on 08-05-2022 Thin prep Papanicolaou smear with manual screening 10 U/L 15-37 [facility] Thin prep Papanicolaou smear with manual screening 6 5-15 [facility] MR Lumbar spine WO contrasto n 07-27-2022 Patient Name: PAMELA ALEGRIA Exam Date/Time: 07/27/2022 10:41 Procedure: MR LUMBAR SPINE WO CONTRAST Ordering Provider: VALLEJO BRADLEY Reason For Exam: MR LUMBAR SPINE WO CONTRAST, MR THORACIC SPINE WO CONTRAST CLINICAL HISTORY: Lower extremity weakness, progressive TECHNIQUE: 1. Multiplantar, multisequence MR imaging of the thoracic spine without contrast. 2. Multiplanar, multisequence MRI imaging of the lumbar spine without contrast. COMPARISON: None FINDINGS: THORACIC SPINE: Counting reference: Craniocervical junction Field Cane Scaler Helper image: Unremarkable Alignment: Normal Spinal cord: Motion artifact somewhat limit assessment of the spinal cord on the axial T2 sequence. However, no findings to suggest cord edema or cord lesions. No cord compression. Soft tissues: Unremarkable Vertebrae: Normal marrow signal intensity. No fractures. No osseous lesions. Canal and foramina: No stenosis. LUMBAR SPINE: Counting reference: For this report, L5-S1 is considered the last lumbar-type disc space, and L4-L5 is at the level of the iliac crests. Alignment: Anatomic Conus: Normal position and signal intensity. Vertebral bodies/marrow: Normal vertebral body height. Normal marrow signal intensity. Canal and foramina: T12-L1: Canal and foramina are patent. L1-L2: Canal and foramina are patent. L2-L3: Canal and foramina are patent. L3-L4: Canal and foramina are patent. L4-L5: A central disc protrusion mildly narrows the spinal canal and subarticular recesses bilaterally. No evidence of nerve root impingement. Patent neural foramina. L5-S1: A 10 mm right subarticular zone disc extrusion produces moderate subarticular recess stenosis with mild mass effect on the right S1 nerve root sleeve. There is no spinal stenosis. The neural foramina are patent. Visualized sacrum: Unremarkable. Soft tissue structures: Unremarkable. [facility] Hiram Singh M D - 07/27/2022 Patient Name: PAMELA ALGERIA Exam Date/Time: 07/27/2022 10:41 Procedure: MR LUMBAR SPINE WO CONTRAST Ordering Provider: VALLEJO BRADLEY Reason For Exam: MR LUMBAR SPINE WO CONTRAST, MR THORACIC SPINE WO CONTRAST CLINICAL HISTORY: Lower extremity weakness, progressive TECHNIQUE: 1. Multiplantar, multisequence MR imaging of the thoracic spine without contrast. 2. Multiplanar, multisequence MRI imaging of the lumbar spine without contrast. COMPARISON: None FINDINGS: THORACIC SPINE: Counting reference: Craniocervical junction Field Cane Scaler Helper image: Unremarkable Alignment: Normal Spinal cord: Motion artifact somewhat limit assessment of the spinal cord on the axial T2 sequence. However, no findings to suggest cord edema or cord lesions. No cord compression. Soft tissues: Unremarkable Vertebrae: Normal marrow signal intensity. No fractures. No osseous lesions. Canal and foramina: No stenosis. LUMBAR SPINE: Counting reference: For this report, L5-S1 is considered the last lumbar-type disc space, and L4-L5 is at the level of the iliac crests. Alignment: Anatomic Conus: Normal position and signal intensity. Vertebral bodies/marrow: Normal vertebral body height. Normal marrow signal intensity. Canal and foramina: T12-L1: Canal and foramina are patent. L1-L2: Canal and foramina are patent. L2-L3: Canal and foramina are patent. L3-L4: Canal and foramina are patent. L4-L5: A central disc protrusion mildly narrows the spinal canal and subarticular recesses bilaterally. No evidence of nerve root impingement. Patent neural foramina. L5-S1: A 10 mm right subarticular zone disc extrusion produces moderate subarticular recess stenosis with mild mass effect on the right S1 nerve root sleeve. There is no spinal stenosis. The neural foramina are patent. Visualized sacrum: Unremarkable. Soft tissue structures: Unremarkable. IMPRESSION: 1. Normal MRI of the thoracic spine. 2. Right L5-S1 subarticular recess stenosis secondary to a 10 mm extruded disc with mild mass effect on the right S1 nerve root sleeve. 3. Mild L4-5 spinal stenosis secondary to a central disc protrusion. Report Dictated on Electronically Signed By: Hiram Singh Electronically Signed Date/Time: 07/27/2022 3:02 PM EST [facility] Radiology Study observation (narrative) Osm[facility]ierra jj MR Thoracic spine WO contras ton 07-27-2022 Patient Name: PAMELA ALEGRIA Exam Date/Time: 07/27/2022 11:11 Procedure: MR THORACIC SPINE WO CONTRAST Ordering Provider: VALLEJO BRADLEY Reason For Exam: MR LUMBAR SPINE WO CONTRAST, MR THORACIC SPINE WO CONTRAST CLINICAL HISTORY: Lower extremity weakness, progressive TECHNIQUE: 1. Multiplantar, multisequence MR imaging of the thoracic spine without contrast. 2. Multiplanar, multisequence MRI imaging of the lumbar spine without contrast. COMPARISON: None FINDINGS: THORACIC SPINE: Counting reference: Craniocervical junction Field Cane Scaler Helper image: Unremarkable Alignment: Normal Spinal cord: Motion artifact somewhat limit assessment of the spinal cord on the axial T2 sequence. However, no findings to suggest cord edema or cord lesions. No cord compression. Soft tissues: Unremarkable Vertebrae: Normal marrow signal intensity. No fractures. No osseous lesions. Canal and foramina: No stenosis. LUMBAR SPINE: Counting reference: For this report, L5-S1 is considered the last lumbar-type disc space, and L4-L5 is at the level of the iliac crests. Alignment: Anatomic Conus: Normal position and signal intensity. Vertebral bodies/marrow: Normal vertebral body height. Normal marrow signal intensity. Canal and foramina: T12-L1: Canal and foramina are patent. L1-L2: Canal and foramina are patent. L2-L3: Canal and foramina are patent. L3-L4: Canal and foramina are patent. L4-L5: A central disc protrusion mildly narrows the spinal canal and subarticular recesses bilaterally. No evidence of nerve root impingement. Patent neural foramina. L5-S1: A 10 mm right subarticular zone disc extrusion produces moderate subarticular recess stenosis with mild mass effect on the right S1 nerve root sleeve. There is no spinal stenosis. The neural foramina are patent. Visualized sacrum: Unremarkable. Soft tissue structures: Unremarkable. [facility] Hiram Singh M D - 07/27/2022 Patient Name: PAMELA ALEGRIA Exam Date/Time: 07/27/2022 11:11 Procedure: MR THORACIC SPINE WO CONTRAST Ordering Provider: VALLEJO BRADLEY Reason For Exam: MR LUMBAR SPINE WO CONTRAST, MR THORACIC SPINE WO CONTRAST CLINICAL HISTORY: Lower extremity weakness, progressive TECHNIQUE: 1. Multiplantar, multisequence MR imaging of the thoracic spine without contrast. 2. Multiplanar, multisequence MRI imaging of the lumbar spine without contrast. COMPARISON: None FINDINGS: THORACIC SPINE: Counting reference: Craniocervical junction Field Cane Scaler Helper image: Unremarkable Alignment: Normal Spinal cord: Motion artifact somewhat limit assessment of the spinal cord on the axial T2 sequence. However, no findings to suggest cord edema or cord lesions. No cord compression. Soft tissues: Unremarkable Vertebrae: Normal marrow signal intensity. No fractures. No osseous lesions. Canal and foramina: No stenosis. LUMBAR SPINE: Counting reference: For this report, L5-S1 is considered the last lumbar-type disc space, and L4-L5 is at the level of the iliac crests. Alignment: Anatomic Conus: Normal position and signal intensity. Vertebral bodies/marrow: Normal vertebral body height. Normal marrow signal intensity. Canal and foramina: T12-L1: Canal and foramina are patent. L1-L2: Canal and foramina are patent. L2-L3: Canal and foramina are patent. L3-L4: Canal and foramina are patent. L4-L5: A central disc protrusion mildly narrows the spinal canal and subarticular recesses bilaterally. No evidence of nerve root impingement. Patent neural foramina. L5-S1: A 10 mm right subarticular zone disc extrusion produces moderate subarticular recess stenosis with mild mass effect on the right S1 nerve root sleeve. There is no spinal stenosis. The neural foramina are patent. Visualized sacrum: Unremarkable. Soft tissue structures: Unremarkable. IMPRESSION: 1. Normal MRI of the thoracic spine. 2. Right L5-S1 subarticular recess stenosis secondary to a 10 mm extruded disc with mild mass effect on the right S1 nerve root sleeve. 3. Mild L4-5 spinal stenosis secondary to a central disc protrusion. Report Dictated on Electronically Signed By: Hiram Singh Electronically Signed Date/Time: 07/27/2022 3:02 PM EST [facility] Radiology Study observation (narrative) [facility] No Panel Informationon 07-27 1. Normal MRI of the thoracic spine. 2. Right L5-S1 subarticular recess stenosis secondary to a 10 mm extruded disc with mild mass effect on the right S1 nerve root sleeve. 3. Mild L4-5 spinal stenosis secondary to a central disc protrusion. Report Dictated on Electronically Signed By: Hiram Singh Electronically Signed Date/Time: 07/27/2022 3:02 PM [facility] No Panel InformationOrdered By: Hiram Singh on 07-27-2022 [facility] Work Phone: Basophil percentageOrdered B y: Vero Hendrickson on 06-07-2022 Cholesterol [Mass/Vol] 175 mg/dL <200 [facility] Comment on above: <200 mg/dL Desirable 200-240 mg/dL Borderline >240 mg/dL High Risk Triglyceride [Mass/Vol] 61 mg/dL <199 [facility] Comment on above: The drugs N-Acetylcy steine and Metamizole may falsely depress this assay.Serum Triglycerides Reference Interval Normal <150 mg/dL Borderline high 150 - 199 mg/dL High 200 - 499 mg/dL Very High > or = 500 mg/dL Laboratory - Chemistry and C hemistry - challengeOrdered By: Vero Hendrickson on 06-07-2022 Free T4 [Mass/Vol] 1.00 ng/dL 0.76-1.46 [facility] No Panel InformationOrdered By: Vero Hendrickson on 06-07-2022 Free Triiodothyronine (T3) pg/dL 2.3 pg/mL 2.18-3.98 [facility] Thyroid Stimulating Hormone (TSH) 2.65 uIU/mL 0.358-3.74 [facility] Serum or plasma cholesterol in HDL measurement (mass/volume)Ordered By: Vero Hendrickson on 06-07-2022 Cholesterol in HDL [Mass/Vol] 73 mg/dL >40 [facility] Comment on above: The drugs N-Acetylcy steine and Metamizole may falsely depress this assay. Reference Range HDL <40 mg/dL Low HDL Cholesterol HDL >or= 60 mg/dL High HDL Cholesterol Serum or plasma cholesterol in VLDL measurement (mass/volume)Ordered By: Vero Katlynoron on 06-07-2022 Cholesterol in VLDL [Mass/Vol] 12 mg/dL 5-40 [facility] Serum or plasma low density lipoprotein (LDL) cholesterol measurement (mass/volume)Ordered By: Vero Emeka on 06-07-2022 Cholesterol in LDL [Mass/Vol] 90 mg/dL 0-130 [facility] Cervical or vagninal specime n microscopic examination by cytology stain (reported asOrdered By: Abbey Noble on 05-31-2022 Cytology report Cyto stain Doc (Cvx/Vag) Comment . [facility] Comment on above: The Pap smear is a s creening test designed to aid in thedetection of premalignant and malignant conditions of theuterine cervix. It is not a diagnostic procedure andshould not be used as the sole means of detecting cervicalcancer. Both false-positive and false-negative reports dooccur. Chlamydia trachomatis rRNA d etection by probe and target amplification methodOrdered By: Abbey Noble on 05-31-2022 C. trachomatis rRNA JULIETTE+probe Ql (Unsp spec) Negative Negative [facility] Laboratory - Chemistry and C hemistry - challengeon 05-31-2022 HCG ( test) Ql (U) Negative [facility] Laboratory - CytologyOrdered By: Abbey Noble on 05-31-2022 Subassembly Assembler Cyto stain Nom (Cvx/Vag) [ID] Comment . [facility] Comment on above: Mee Latif Cytote chnologist (ASCP) Laboratory - Microbiology an d Antimicrobial susceptibilityOrdered By: Abbey Noble on 05-31-2022 N. gonorrhoeae DNA JULIETTE+probe Ql (Unsp spec) Negative Negative [facility] Comment on above: Performed at: =G - L [address] [id number] Director: Reema Enamorado MD, Phone: [phone] Laboratory - Miscellaneous t estsOrdered By: Abbey Noble on 05-31-2022 Service comment (Unsp spec) [Interp] Comment . [facility] Comment on above: This liquid based Th inPrep(R) pap test was screened withthe use of an image guided system. Service comment (Unsp spec) [Interp] . . [facility] No Panel InformationOrdered By: Abbey Noble on 05-31-2022 Human Papillomavirus Screen Comment . [facility] Comment on above: The HPV DNA reflex selina bowman were not met with this specimenresult therefore, no HPV testing was performed.Performed at: - [facility] [id number] Director: Reema Enamorado MD, Phone: [phone] Pathology report final diagnosis Narrative Comment . [facility] Comment on above: NEGATIVE FOR INTRAEP ITHELIAL LESION OR MALIGNANCY. Thyroid Stimulating Hormone (TSH) 3.81 uIU/mL 0.358-3.74 [facility] Absolute lymphocyte countOrd ered By: Dr. Mueller on 04-27-2022 Lymphocytes Auto (Unsp spec) [#/Vol] 2.56 10*3/uL 0.83-4.51 [facility] Basophil percentageOrdered B y: Dr. Mueller on 04-27-2022 Basophil percentage 0-5 SEEN /hpf 0-5 [facility] Basophils/100 WBC (Bld) 0.2 % 0-1 [facility] Chloride [Moles/Vol] 104 mmol/L 98-107 [facility] Eosinophils/100 WBC (Bld) 1.6 % 0-5 [facility] Glucose [Mass/Vol] 101 mg/dL 74-106 [facility] Comment on above: Fasting Glucose resu lt from 100 to 125 mg/dL suggests IMPAIRED HOMEOSTASIS per A.D.A. criteria. Neutrophils (Bld) [#/Vol] 5.3 10*3/uL 2.0-7.7 [facility] Neutrophils/100 WBC (Bld) 62.4 % 47-70 [facility] Potassium [Moles/Vol] 3.8 mmol/L 3.5-5.1 [facility] Sodium [Moles/Vol] 138 mmol/L 136-145 [facility] WBC (Bld) [#/Vol] 8.6 10*3/uL 4.4-11.0 [facility] Beta hCG serum qualOrdered B y: Dr. Mueller on 04-27-2022 Beta HCG ( test) Ql Negative [facility] Bilirubin Test strip Ql (U)O rdered By: Dr. Mueller on 04-27-2022 Bilirubin Ql (U) Negative Negative [facility] Blood erythrocytes count (nu mber/volume)Ordered By: Dr. Mueller on 04-27-2022 RBC (Bld) [#/Vol] 4.70 10*6/uL 4.2-5.4 [facility] Blood hemoglobin measurement (mass/volume)Ordered By: Dr. Mueller on 04-27-2022 Hemoglobin (Bld) [Mass/Vol] 14.0 g/dL 12.0-15.0 [facility] Blood lymphocytes/100 leukoc ytesOrdered By: Dr. Mueller on 04-27-2022 Lymphocytes/100 WBC (Bld) 29.9 % 19-41 [facility] Blood monocytes/100 leukocyt esOrdered By: Dr. Mueller on 04-27-2022 Monocytes/100 WBC (Bld) 5.4 % 0-10 [facility] Blood platelet mean volumeOr dered By: Dr. Mueller on 04-27-2022 Platelet mean volume (Bld) [Entitic vol] 9.8 fL 6.2-12.0 [facility] Determination of erythrocyte mean corpuscular volume (MCV)Ordered By: Dr. Mueller on 04-27-2022 MCV (RBC) [Entitic vol] 93.0 fL 81-99 [facility] Hematocrit Auto (Bld) [Volum e fraction]Ordered By: Dr. Mueller on 04-27-2022 Hematocrit (Bld) [Volume fraction] 43.7 % 37-47 [facility] Ketones Test strip Ql (U)Ord ered By: Dr. Mueller on 04-27-2022 Ketones Ql (U) Negative Negative [facility] Laboratory - Chemistry and C hemistry - challengeOrdered By: Dr. Mueller on 04-27-2022 CO2 [Moles/Vol] 29.0 mmol/L 21.0-32.0 [facility] Urea nitrogen/Creatinine [Mass ratio] 25.1 mg/mg 10-20 [facility] Laboratory - Hematology and Cell countsOrdered By: Dr. Mueller on 04-27-2022 Erythrocyte distribution width (RBC) [Entitic vol] 47.6 fL 35.1-43.9 [facility] Erythrocyte distribution width (RBC) [Ratio] 13.7 % 11.6-14.6 [facility] Immature granulocytes/100 WBC (Bld) 0.500 % 0.0-0.9 [facility] Comment on above: IG% - Immature Granu locytes (promyelocytes, myelocytes and metamyelocytes) > 1% indicates that a LEFT SHIFT is Present. MCH (RBC) [Entitic mass] 29.8 pg 27.0-32.0 [facility] Nucleated RBC/100 WBC (Bld) [Ratio] 0 % 0-5 [facility] MCHC Auto (RBC) [Mass/Vol]Or dered By: Dr. Mueller on 04-27-2022 MCHC (RBC) [Mass/Vol] 32.0 g/dL 32-36 [facility] Mucus LM Ql (Urine sed)Order ed By: Dr. Mueller on 04-27-2022 Mucus Ql (Urine sed) 0 SEEN /hpf [facility] Nitrite Test strip Ql (U)Ord ered By: Dr. Mueller on 04-27-2022 Nitrite Ql (U) Negative Negative [facility] No Panel InformationOrdered By: Dr. Mueller on 04-27-2022 Estimated Creatinine Clearance Calc 112.12 ml/min [facility] Estimated GFR (MDRD) Amer 147 mL/min >60 [facility] Comment on above: GFR Calc Estimated GFR (MDRD) Non-Af Amer 122 mL/min >60 [facility] Comment on above: Non- GFR Calc Platelets bldOrdered By: Dr. Mueller on 04-27-2022 Platelets (Bld) [#/Vol] 269 10*3/uL 150-450 [facility] Protein Test strip Ql (U)Ord ered By: Dr. Mueller on 04-27-2022 Protein Ql (U) Negative Negative [facility] Serum or plasma calcium fabio urement (mass/volume)Ordered By: Dr. Mueller on 04-27-2022 Calcium [Mass/Vol] 10.2 mg/dL 8.5-10.1 [facility] Serum or plasma creatinine m easurement (mass/volume)Ordered By: Dr. Mueller on 04-27-2022 Creatinine [Mass/Vol] 0.64 mg/dL 0.55-1.02 [facility] Comment on above: The validity of the calculated GFR & GFRAA in patients over 70 years has not been determined. Clinical correlation is essential. Serum or plasma urea nitroge n measurement (mass/volume)Ordered By: Dr. Mueller on 10-04-2022 Urea nitrogen [Mass/Vol] 16 mg/dL 7-18 [facility] Squamous epithelial cells de tection in urine sediment by light microscopyOrdered By: Dr. Mueller on 04-27-2022 Epithelial cells.squamous LM Ql (Urine sed) 10-25 SEEN /hpf 5-10 [facility] Thin prep Papanicolaou smear with manual screeningOrdered By: Dr. Mueller on 04-27-2022 Thin prep Papanicolaou smear with manual screening 5 5-15 [facility] Urine blood detectionOrdered By: Dr. Mueller on 04-27-2022 RBC Ql (U) Negative Negative [facility] RBC Ql (U) 0-5 SEEN /hpf 0-5 [facility] Urine clarityOrdered By: Dr. Mueller on 04-27-2022 Clarity (U) Sl. Cloudy Clear [facility] Urine color determinationOrd ered By: Dr. Mueller on 04-27-2022 Color (U) Straw Yellow [facility] Urine glucose detectionOrder ed By: Dr. Mueller on 04-27-2022 Glucose Ql (U) Normal mg/dl Normal [facility] Urine leukocyte esterase det ection by dipstickOrdered By: Dr. Mueller on 04-27-2022 Leukocyte esterase Test strip Ql (U) Negative Negative [facility] Urine pHOrdered By: Dr. Simone fong on 04-27-2022 pH (U) 6.0 [pH] 5.0 - 8.0 [facility] Urine sediment bacteria coun t by microscopy (number/high power field)Ordered By: Dr. Mueller on 04-27-2022 Bacteria LM.HPF (Urine sed) [#/Area] 4 /[HPF] None Seen [facility] Urine specific gravity measu rementOrdered By: Dr. Mueller on 04-27-2022 Specific gravity (U) [Rel density] 1.025 1.002-1.030 [facility] Urobilinogen Auto test strip Ql (U)Ordered By: Dr. Mueller on 04-27-2022 Urobilinogen Ql (U) Normal mg/dl Normal [facility] CNOVon 03-12-2022 CNOV Office Visit (AGOBST ) PAMELA ALEGRIA ([id number]) 2000 F Date Time Provider Department 03/12/22 4:45 PM YAHAIRA RAMOS During your visit today, we recorded the following information about you: Blood pressure Weight Height 121/80 79.6 kg 1.6 m Yahaira Ramos DO 03/12/2022 4:38 PM Signed Pamela Alegria is a 22 year old female [...] [Codeine] Hives Current Outpatient Medications Medication Sig Brompheniramine-Pseudoe ph-DM (BROMFED DM) 2-30-10 mg/5 mL syrup Take [...] HOURS 8.5 June 02, 2020 8:46am 06-02-2020 [facility] ([id number]) (Patient not taking: Reported on 03/12/2022) ondansetron orally disintegrating (ZOFRAN ODT) 4 mg disintegrating tablet (Patient not taking: No sig reported) traMADol (ULTRAM) 50 mg tablet (Patient not taking: No sig reported) potassium chloride ER (K-DUR, KLOR-CON) 20 mEq tablet Potassium Chloride Potassium Chloride [K-Dur] 20 MEQ PO TWICE A DAY 7 June 28, 2018 Active 06-28-2018 [facility] ([id number]) (Patient not taking: No sig reported) medroxyPROGESTERone [...] General: No Acute Distress, Well nourished, Well (more content not included)... Normal [facility] Absolute lymphocyte counton 02-01-2022 Lymphocytes Auto (Unsp spec) [#/Vol] 2.69 10*3/uL 0.83-4.51 [facility] Work Phone: Basophil percentageon 2021 Basophil percentage 0 SEEN /hpf 0-5 [facility] Work Phone: Basophils/100 WBC (Bld) 0.4 % 0-1 [facility] Work Phone: Bilirubin [Mass/Vol] 0.20 mg/dL 0.20-1.00 [facility] Work Phone: Comment on above: For patients on eltr ombopag therapy, use of Dimension [place] TBIL is not recommended. Chloride [Moles/Vol] 104 mmol/L 98-107 [facility] Work Phone: Eosinophils/100 WBC (Bld) 1.6 % 0-5 [facility] Work Phone: Glucose [Mass/Vol] 89 mg/dL 74-106 [facility] Work Phone: Neutrophils (Bld) [#/Vol] 4.3 10*3/uL 2.0-7.7 [facility] Work Phone: Neutrophils/100 WBC (Bld) 55.4 % 47-70 [facility] Work Phone: Potassium [Moles/Vol] 3.8 mmol/L 3.5-5.1 [facility] Work Phone: Protein [Mass/Vol] 7.4 g/dL 6.4-8.2 [facility] Work Phone: Sodium [Moles/Vol] 140 mmol/L 136-145 [facility] Work Phone: WBC (Bld) [#/Vol] 7.7 10*3/uL 4.4-11.0 [facility] Work Phone: Beta hCG serum qualon 2021 Beta HCG ( test) Ql Negative [facility] Work Phone: Bilirubin Test strip Ql (U)o n 02-01-2022 Bilirubin Ql (U) Negative Negative [facility] Work Phone: Blood erythrocytes count (nu mber/volume)on 02-01-2022 RBC (Bld) [#/Vol] 4.34 10*6/uL 4.2-5.4 [facility] Work Phone: Blood hemoglobin measurement (mass/volume)on 02-01-2022 Hemoglobin (Bld) [Mass/Vol] 13.0 g/dL 12.0-15.0 [facility] Work Phone: Blood lymphocytes/100 leukoc yteson 02-01-2022 Lymphocytes/100 WBC (Bld) 34.8 % 19-41 [facility] Work Phone: Blood monocytes/100 leukocyt eson 02-01-2022 Monocytes/100 WBC (Bld) 7.4 % 0-10 [facility] Work Phone: Blood platelet mean volumeon 02-01-2022 Platelet mean volume (Bld) [Entitic vol] 10.1 fL 6.2-12.0 [facility] Work Phone: [phone] Determination of erythrocyte mean corpuscular volume (MCV)on 02-01-2022 MCV (RBC) [Entitic vol] 91.7 fL 81-99 [facility] Work Phone: [phone] Hematocrit Auto (Bld) [Volum e fraction]on 02-01-2022 Hematocrit (Bld) [Volume fraction] 39.8 % 37-47 [facility] Work Phone: [phone] Ketones Test strip Ql (U)on 02-01-2022 Ketones Ql (U) Negative Negative [facility] Work Phone: [phone] Laboratory - Chemistry and C hemistry - challengeon 02-01-2022 ALP [Catalytic activity/Vol] 63 U/L 45-117 [facility] Work Phone: [phone] ALT [Catalytic activity/Vol] 22 U/L 13-56 [facility] Work Phone: [phone] CO2 [Moles/Vol] 28.0 mmol/L 21.0-32.0 [facility] Work Phone: [phone] Globulin (S) [Mass/Vol] 3.6 g/dL 2.2-4.2 [facility] Work Phone: [phone] Urea nitrogen/Creatinine [Mass ratio] 14.8 mg/mg 10-20 [facility] Work Phone: [phone] Laboratory - Hematology and Cell countson 02-01-2022 Erythrocyte distribution width (RBC) [Entitic vol] 44.1 fL 35.1-43.9 [facility] Work Phone: [phone] Erythrocyte distribution width (RBC) [Ratio] 13.1 % 11.6-14.6 [facility] Work Phone: [phone] Immature granulocytes/100 WBC (Bld) 0.400 % 0.0-0.9 [facility] Work Phone: [phone] Comment on above: IG% - Immature Granu locytes (promyelocytes, myelocytes and metamyelocytes) > 1% indicates that a LEFT SHIFT is Present. MCH (RBC) [Entitic mass] 30.0 pg 27.0-32.0 [facility] Work Phone: Nucleated RBC/100 WBC (Bld) [Ratio] 0 % 0-5 [facility] Work Phone: MCHC Auto (RBC) [Mass/Vol]on 02-01-2022 MCHC (RBC) [Mass/Vol] 32.7 g/dL 32-36 [facility] Work Phone: Mucus LM Ql (Urine sed)on Mucus Ql (Urine sed) 0 SEEN /hpf [facility] Work Phone: Nitrite Test strip Ql (U)on 02-01-2022 Nitrite Ql (U) Negative Negative [facility] Work Phone: No Panel Informationon 02-01 Estimated GFR (MDRD) Amer 138 mL/min >60 [facility] Work Phone: Comment on above: GFR Calc Estimated GFR (MDRD) Non-Af Amer 114 mL/min >60 [facility] Work Phone: Comment on above: Non- GFR Calc Platelets bldon 02-01-2022 Platelets (Bld) [#/Vol] 274 10*3/uL 150-450 [facility] Work Phone: [phone] Protein Test strip Ql (U)on 02-01-2022 Protein Ql (U) Negative Negative [facility] Work Phone: [phone] Serum or plasma albumin fabio urement (mass/volume)on 02-01-2022 Albumin [Mass/Vol] 3.8 g/dL 3.2-5.0 [facility] Work Phone: [phone] Serum or plasma albumin/glob ulin mass ratioon 02-01-2022 Albumin/Globulin [Mass ratio] 1.1 {ratio} 0.9-2.4 [facility] Work Phone: [phone] Serum or plasma calcium fabio urement (mass/volume)on 02-01-2022 Calcium [Mass/Vol] 9.2 mg/dL 8.5-10.1 [facility] Work Phone: Serum or plasma creatinine m easurement (mass/volume)on 02-01-2022 Creatinine [Mass/Vol] 0.68 mg/dL 0.55-1.02 [facility] Work Phone: Comment on above: The validity of the calculated GFR & GFRAA in patients over 70 years has not been determined. Clinical correlation is essential. Serum or plasma urea nitroge n measurement (mass/volume)on 02-01-2022 Urea nitrogen [Mass/Vol] 10 mg/dL 7-18 [facility] Work Phone: Squamous epithelial cells de tection in urine sediment by light microscopyon 02-01-2022 Epithelial cells.squamous LM Ql (Urine sed) 0-5 SEEN /hpf 5-10 [facility] Work Phone: Thin prep Papanicolaou smear with manual screeningon 02-01-2022 Thin prep Papanicolaou smear with manual screening 15 U/L 15-37 [facility] Work Phone: Thin prep Papanicolaou smear with manual screening 8 5-15 [facility] Work Phone: Urine blood detectionon 01-22 RBC Ql (U) Negative Negative [facility] Work Phone: RBC Ql (U) 0 SEEN /hpf 0-5 [facility] Work Phone: Urine clarityon 02-01-2022 Clarity (U) Clear Clear [facility] Work Phone: Urine color determinationon 02-01-2022 Color (U) Yellow Yellow [facility] Work Phone: Urine glucose detectionon Glucose Ql (U) Normal mg/dl Normal [facility] Work Phone: Urine leukocyte esterase det ection by dipstickon 02-01-2022 Leukocyte esterase Test strip Ql (U) Negative Negative [facility] Work Phone: Urine pHon 02-01-2022 pH (U) 7.0 [pH] 5.0 - 8.0 [facility] Work Phone: Urine sediment bacteria coun t by microscopy (number/high power field)on 02-01-2022 Bacteria LM.HPF (Urine sed) [#/Area] 1 /[HPF] None Seen [facility] Work Phone: Urine specific gravity measu rementon 02-01-2022 Specific gravity (U) [Rel density] 1.010 1.002-1.030 [facility] Work Phone: Urobilinogen Auto test strip Ql (U)on 02-01-2022 Urobilinogen Ql (U) Normal mg/dl Normal [facility] Work Phone: .Auto Diffon 11-20-2021 Basophil, Absolute 0.00 10 3/mcL Normal 0.00-0.19 [facility] ([place]) Comment on above: Performed By: #### C BC, ADIFF, ANEU, BMP, ALC, GFR #### [address] [address] Basophils/100 WBC (Bld) 0.2 % Normal 0.0-2.5 [facility] ([place]) Comment on above: Performed By: #### C BC, ADIFF, ANEU, BMP, ALC, GFR #### [address] [address] Eosinophil, Absolute 0.10 10 3/mcL Normal 0.00-0.40 [facility] ([place]) Comment on above: Performed By: #### C BC, ADIFF, ANEU, BMP, ALC, GFR #### [address] [address] Eosinophils/100 WBC (Bld) 0.6 % Normal 0.0-7.0 [facility] ([place]) Comment on above: Performed By: #### C BC, ADIFF, ANEU, BMP, ALC, GFR #### [address] [address] Lymphocyte, Absolute 2.90 10 3/mcL Normal 0.77-3.85 [facility] ([place]) Comment on above: Performed By: #### C BC, ADIFF, ANEU, BMP, ALC, GFR #### [address] [address] Lymphocytes/100 WBC (Bld) 31.3 % Normal 10.0-50.0 [facility] ([place]) Comment on above: Performed By: #### C BC, ADIFF, ANEU, BMP, ALC, GFR #### [address] [address] Monocyte, Absolute 0.60 10 3/mcL Normal 0.15-1.00 [facility] ([place]) Comment on above: Performed By: #### C BC, ADIFF, ANEU, BMP, ALC, GFR #### [address] [address] Monocytes/100 WBC (Bld) 6.2 % Normal 1.7-13.0 [facility] ([place]) Comment on above: Performed By: #### C BC, ADIFF, ANEU, BMP, ALC, GFR #### [address] [address] Neutrophils/100 WBC (Bld) 61.7 % Normal 37.0-80.0 [facility] ([place]) Comment on above: Performed By: #### C BC, ADIFF, ANEU, BMP, ALC, GFR #### [address] [address] .GFRon 11-20-2021 GFR 98 ml/min/1.73sqm Normal [facility] ([place]) Comment on above: Result Comment: GFR Population mean for , Non- Americans Ages 20-29 = 116 mL/min/1.73 sq.m. Ages 30-39 = 107 mL/min/1.73 sq.m. Ages 40-49 = 99 mL/min/1.73 sq.m. Ages 50-59 = 93 mL/min/1.73 sq.m. Ages 60-69 = 85 mL/min/1.73 sq.m. Ages 70+ = 75 mL/min/1.73 sq.m. Chronic Kidney Disease: Less than 60 mL/min/1.73 square meters End Stage Renal Disease: Less than 15 mL/min/1.73 square meters Performed By: #### C BC, ADIFF, ANEU, BMP, ALC, GFR #### [address] [address] GFR Non- 81 ml/min/1.73sqm Normal [facility] ([place]) Comment on above: Result Comment: GFR Population mean for , Non- Americans Ages 20-29 = 116 mL/min/1.73 sq.m. Ages 30-39 = 107 mL/min/1.73 sq.m. Ages 40-49 = 99 mL/min/1.73 sq.m. Ages 50-59 = 93 mL/min/1.73 sq.m. Ages 60-69 = 85 mL/min/1.73 sq.m. Ages 70+ = 75 mL/min/1.73 sq.m. Chronic Kidney Disease: Less than 60 mL/min/1.73 square meters End Stage Renal Disease: Less than 15 mL/min/1.73 square meters Performed By: #### C BC, ADIFF, ANEU, BMP, ALC, GFR #### [address] [address] .NEUABSon 11-20-2021 Neutrophil, Absolute 5.70 10 3/mcL Normal 2.85-6.16 [facility] ([place]) Comment on above: Performed By: #### C BC, ADIFF, ANEU, BMP, ALC, GFR #### [address] [address] Mykel 11-20-2021 Ethanol Level <3 Normal 0-3 [facility] ([place]) Comment on above: Performed By: #### C BC, ADIFF, ANEU, BMP, ALC, GFR #### [address] [address] BMPon 11-20-2021 BUN/Creatinine Ratio 11 ratio Normal 7-27 [facility] ([place]) Comment on above: Performed By: #### C BC, ADIFF, ANEU, BMP, ALC, GFR #### [address] [address] Calcium [Mass/Vol] 9.7 mg/dL Normal 8.4-10.2 [facility] ([place]) Comment on above: Performed By: #### C BC, ADIFF, ANEU, BMP, ALC, GFR #### [address] [address] Chloride [Moles/Vol] 100 mmol/L Normal 98-107 [facility] ([place]) Comment on above: Performed By: #### C BC, ADIFF, ANEU, BMP, ALC, GFR #### [place] [address] CO2 [Moles/Vol] 24 mmol/L Normal 22-29 [facility] ([place]) Comment on above: Performed By: #### C BC, ADIFF, ANEU, BMP, ALC, GFR #### [address] [address] Creatinine [Mass/Vol] 0.87 mg/dL Normal 0.55-1.02 [facility] ([place]) Comment on above: Performed By: #### C BC, ADIFF, ANEU, BMP, ALC, GFR #### [address] [address] Electrolyte Balance 16.0 mEq/L High 4.0-15.0 [facility] ([place]) Comment on above: Performed By: #### C BC, ADIFF, ANEU, BMP, ALC, GFR #### [address] [address] Glucose [Mass/Vol] 127 mg/dL High 70-105 [facility] ([place]) Comment on above: Performed By: #### C BC, ADIFF, ANEU, BMP, ALC, GFR #### [address] [address] Potassium [Moles/Vol] 3.0 mmol/L Low 3.5-5.1 [facility] ([place]) Comment on above: Performed By: #### C BC, ADIFF, ANEU, BMP, ALC, GFR #### [place] [address] Sodium [Moles/Vol] 140 mmol/L Normal 136-145 [facility] ([place]) Comment on above: Performed By: #### C BC, ADIFF, ANEU, BMP, ALC, GFR #### [place] [address] Urea nitrogen [Mass/Vol] 10 mg/dL Normal 7-18 [facility] ([place]) Comment on above: Performed By: #### C BC, ADIFF, ANEU, BMP, ALC, GFR #### [place] [id number] CBCon 11-20-2021 Erythrocyte distribution width (RBC) [Ratio] 13.6 % Normal 11.5-14.5 [facility] ([place]) Comment on above: Performed By: #### C BC, ADIFF, ANEU, BMP, ALC, GFR #### [place] [address] Hematocrit (Bld) [Volume fraction] 39.1 % Normal 37.0-47.0 [facility] ([place]) Comment on above: Performed By: #### C BC, ADIFF, ANEU, BMP, ALC, GFR #### [place] [id number] Hgb 13.1 G/dL Normal 12.0-16.0 [facility] ([place]) Comment on above: Performed By: #### C BC, ADIFF, ANEU, BMP, ALC, GFR #### [place] [id number] MCH (RBC) [Entitic mass] 29.9 pg Normal 27.0-31.2 [facility] ([place]) Comment on above: Performed By: #### C BC, ADIFF, ANEU, BMP, ALC, GFR #### [place] [id number] MCHC 33.5 G/dL Normal 33.0-37.0 [facility] ([place]) Comment on above: Performed By: #### C BC, ADIFF, ANEU, BMP, ALC, GFR #### [address] [address] MCV (RBC) [Entitic vol] 89.3 fL Normal 80.0-94.0 [facility] ([place]) Comment on above: Performed By: #### C BC, ADIFF, ANEU, BMP, ALC, GFR #### [address] [address] Platelet 281 10 3/mcL Normal 130-400 [facility] ([place]) Comment on above: Performed By: #### C BC, ADIFF, ANEU, BMP, ALC, GFR #### [address] [address] Platelet mean volume (Bld) [Entitic vol] 8.4 fL Normal 7.4-10.4 [facility] [place] ([place]) Comment on above: Performed By: #### C BC, ADIFF, ANEU, BMP, ALC, GFR #### [address] [address] RBC 4.37 10 6/mcL Normal 4.20-5.40 [facility] [place] ([place]) Comment on above: Performed By: #### C BC, ADIFF, ANEU, BMP, ALC, GFR #### [address] [address] WBC 9.20 10 3/mcL Normal 4.60-10.80 [facility] [place] ([place]) Comment on above: Performed By: #### C BC, ADIFF, ANEU, BMP, ALC, GFR #### [address] [address] [id number] 11-20-2021 Date of Onset [id number] Invalid Interpretation Code [facility] [place] ([place]) Comment on above: Performed By: #### Selina OVD19 #### [address] [address] Employed in Healthcare No Normal [facility] ([place]) Comment on above: Performed By: #### Selina OVD19 #### [address] [address] First Test Unknown Normal [facility] [place] ([place]) Comment on above: Performed By: #### C OVD19 #### [place] [address] [place], [place] [address] Hospitalized No Normal [facility] [place] ([place]) Comment on above: Performed By: #### C OVD19 #### [place] [address] [place], [place] [address] ICU No Normal [facility] [place] ([place]) Comment on above: Performed By: #### C OVD19 #### [place] [address] [address] Not [facility]ly [facility] ([place]) Comment on above: Performed By: #### C OVD19 #### [place] [address] Resides in Congregate Care Setting No [facility] ([place]) Comment on above: Performed By: #### C OVD19 #### [place] [address] SARS-CoV-2 (COVID-19) RNA JULIETTE+probe Ql (Unsp spec) Negative Normal Negative [facility] [place] ([place]) Comment on above: Performed By: #### C OVD19 #### [place] [address] SARS-CoV-2 (COVID-19) RNA JULIETTE+probe Ql (Unsp spec) Normal [facility] [place] ([place]) Comment on above: Result Comment: Nega tive results do not preclude SARS-CoV-2 infection and should not be used as the sole basis for patient management decisions. Negative results must be combined with clinical observations, patient history, and epidemiological information. There is a risk of false negative values resulting from improperly collected, transported, or handled specimens. There is a risk of false negative values due to the presence of sequence variants in the pathogen targets of the assay, procedural errors, amplification inhibitors in specimens, or inadequate numbers of organisms for amplification. NATTY SARS-CoV-2 Assay is a Real-Time reverse-transcriptase polymerase chain reaction (RT-PCR) based qualitative in vitro diagnostic test intended for the qualitative detection of nucleic acid from the SARS-CoV-2 in nasopharyngeal swab specimens collected from individuals suspected of COVID-19 by their healthcare provider. Testing is limited to laboratories certified under the Clinical Laboratory Improvement Amendments of 1988 (CLIA), 42 U.S.C. ?263a, to perform moderate and high complexity tests. COVID-19 Int Performed By: #### C OVD19 #### [place] [address] [place], [place] [address] Symptomatic as Defined by [facility] No [facility] ([place]) Comment on above: Performed By: #### C OVD19 #### [place] [address] [place], [place] [address] CT HEAD OR BRAIN W/O CONTRAS Ton 11-20-2021 CT HEAD OR BRAIN W/O CONTRAST ORIGINAL EXAMINATION: CT OF THE HEAD WITHOUT CONTRAST 11/20/2021 9:08 pm TECHNIQUE: CT of the head was performed without the administration of intravenous contrast. Dose modulation, iterative reconstruction, and/or weight based adjustment of the mA/kV was utilized to reduce the radiation dose to as low as reasonably achievable. COMPARISON: None. HISTORY: ORDERING SYSTEM PROVIDED HISTORY: Reason for Exam: change in mental status/weakness/aphasia FINDINGS: BRAIN/VENTRICLES: There is no acute intracranial hemorrhage, mass effect or midline shift. No abnormal extra-axial fluid collection. The coughlin-white differentiation is maintained without evidence of an acute infarct. There is no evidence of hydrocephalus. ORBITS: The visualized portion of the orbits demonstrate no acute abnormality. SINUSES: The visualized paranasal sinuses and mastoid air cells demonstrate no acute abnormality. SOFT TISSUES/SKULL: No acute abnormality of the visualized skull or soft tissues. IMPRESSION: No acute intracranial abnormality. RECOMMENDATIONS: Unavailable Interpreted by: Alexandro Melchor Preliminary Report By: Alexandro Melchor Electronically signed By Alexandro Melchor Dictated Date: 11/20/2021 9:13:14 PM Prelim Date: 11/20/2021 9:14:42 PM Sign Date: 11/20/2021 9:14:42 PM Ordering Provider: URSZULA CHAUHAN Normal [facility] [place] ([place]) LABORATORYOrdered By: Sia Amos on 11-20-2021 Amphetamines Screen Ql (U) Negative (11/20/21 8:21 PM) Invalid Interpretation Code AO Manual Urine SS Barbiturates Screen Ql (U) Negative (11/20/21 8:21 PM) Invalid Interpretation Code AO Manual Urine SS Benzodiazepines Ql (U) Negative (11/20/21 8:21 PM) Invalid Interpretation Code AO Manual Urine SS Benzoylecgonine Screen Ql (U) Negative (11/20/21 8:21 PM) Invalid Interpretation Code AO Manual Urine SS Cannabinoids tested Screen Nom (U) Negative (11/20/21 8:21 PM) Invalid Interpretation Code AO Manual Urine SS HCG ( test) Ql Negative (11/20/21 8:21 PM) Invalid Interpretation Code AO Manual Urine SS Methadone Screen Ql (U) Negative (11/20/21 8:21 PM) Invalid Interpretation Code AO Manual Urine SS Opiates Screen Ql (U) Negative (11/20/21 8:21 PM) Invalid Interpretation Code AO Manual Urine SS Phencyclidine Ql (U) Negative (11/20/21 8:21 PM) Invalid Interpretation Code AO Manual Urine SS test (u) int Not detected Invalid Interpretation Code AO Manual Urine SS Tricyclic antidepressants Screen Ql (U) Negative (11/20/21 8:21 PM) Invalid Interpretation Code AO Manual Urine SS ADMITTED TO INTENSIVE CARE UNIT FOR CONDITION OF INTEREST:FIND:PT:^PATIE NT:ORD: No (11/20/21 6:02 PM) Invalid Interpretation Code AO Auto Urine SS EMPLOYED IN A HEALTHCARE SETTING:FIND:PT:^PATIEN T:ORD: No (11/20/21 6:02 PM) Invalid Interpretation Code AO Auto Urine SS FIRST TEST FOR CONDITION OF INTEREST:FIND:PT:^PATIE NT:ORD: Unknown (11/20/21 6:02 PM) Invalid Interpretation Code AO Auto Urine SS HAS SYMPTOMS RELATED TO CONDITION OF INTEREST:FIND:PT:^PATIE NT:ORD: No (11/20/21 6:02 PM) Invalid Interpretation Code AO Auto Urine SS Illness or injury onset date and time 20211120 Invalid Interpretation Code AO Auto Urine SS Patient was hospitalized because of this condition No (11/20/21 6:02 PM) Invalid Interpretation Code AO Auto Urine SS status Not (11/20/21 6:02 PM) Invalid Interpretation Code AO Auto Urine SS RESIDES IN A CONGREGATE CARE SETTING:FIND:PT:^PATIEN T:ORD: No (11/20/21 6:02 PM) Invalid Interpretation Code AO Auto Urine SS SARS-CoV-2 (COVID-19) RNA JULIETTE+probe Ql (Resp) Negative (11/20/21 6:02 PM) Invalid Interpretation Code Negative AO Auto Urine SS SARS-CoV-2 (COVID-19) RNA JULIETTE+probe Ql (Unsp spec) Negative results do not preclude SARS-CoV-2 infection and should not be used as the sole basis for patient management decisions. Negative results must be combined with clinical observations, patient history, and epidemiological information.There is a risk of false negative values resulting from improperly collected, transported, or handled specimens.There is a risk of false negative values due to the presence of sequence variants in the pathogen targets of the assay, procedural errors, amplification inhibitors in specimens, or inadequate numbers of organisms for amplification.NATTY SARS-CoV-2 Assay is a Real-Time reverse-transcriptase polymerase chain reaction (RT-PCR) based qualitative in vitro diagnostic test intended for the qualitative detection of nucleic acid from the SARS-CoV-2 in nasopharyngeal swab specimens collected from individuals suspected of COVID-19 by their healthcare provider. Testing is limited to laboratories certified under the Clinical Laboratory Improvement Amendments of 1988 (CLIA), 42 U.S.C. 263a, to perform moderate and high complexity tests. Invalid Interpretation Code AO Auto Urine SS LABORATORYOrdered By: Song Aguilar on 11-20-2021 Basophil, Absolute 0.00 103/mcL Invalid Interpretation Code 0.00 - 0.19 10^3/mcL AO Auto Heme SS Basophils/100 WBC (Bld) 0.2 % Invalid Interpretation Code 0.0 - 2.5 % AO Auto Heme SS Eosinophil, Absolute 0.10 103/mcL Invalid Interpretation Code 0.00 - 0.40 10^3/mcL AO Auto Heme SS Eosinophils/100 WBC (Bld) 0.6 % Invalid Interpretation Code 0.0 - 7.0 % AO Auto Heme SS Erythrocyte distribution width (RBC) [Ratio] 13.6 % Invalid Interpretation Code 11.5 - 14.5 % AO Auto Heme SS Hematocrit (Bld) [Volume fraction] 39.1 % Invalid Interpretation Code 37.0 - 47.0 % AO Auto Heme SS Hemoglobin (Bld) [Mass/Vol] 13.1 G/dL Invalid Interpretation Code 12.0 - 16.0 G/dL AO Auto Heme SS Lymphocyte, Absolute 2.90 103/mcL Invalid Interpretation Code 0.77 - 3.85 10^3/mcL AO Auto Heme SS Lymphocytes/100 WBC (Bld) 31.3 % Invalid Interpretation Code 10.0 - 50.0 % AO Auto Heme SS MCH (RBC) [Entitic mass] 29.9 pg Invalid Interpretation Code 27.0 - 31.2 pg AO Auto Heme SS MCHC (RBC) [Mass/Vol] 33.5 G/dL Invalid Interpretation Code 33.0 - 37.0 G/dL AO Auto Heme SS MCV (RBC) [Entitic vol] 89.3 fL Invalid Interpretation Code 80.0 - 94.0 fL AO Auto Heme SS Monocyte, Absolute 0.60 103/mcL Invalid Interpretation Code 0.15 - 1.00 10^3/mcL AO Auto Heme SS Monocytes/100 WBC (Bld) 6.2 % Invalid Interpretation Code 1.7 - 13.0 % AO Auto Heme SS Neutrophil, Absolute 5.70 103/mcL Invalid Interpretation Code 2.85 - 6.16 10^3/mcL AO Auto Heme SS Neutrophils/100 WBC (Bld) 61.7 % Invalid Interpretation Code 37.0 - 80.0 % AO Auto Heme SS Platelet mean volume (Bld) [Entitic vol] 8.4 fL Invalid Interpretation Code 7.4 - 10.4 fL AO Auto Heme SS Platelets (Bld) [#/Vol] 281 103/mcL Invalid Interpretation Code 130 - 400 10^3/mcL AO Auto Heme SS RBC (Bld) [#/Vol] 4.37 106/mcL Invalid Interpretation Code 4.20 - 5.40 10^6/mcL AO Auto Heme SS WBC (Bld) [#/Vol] 9.20 103/mcL Invalid Interpretation Code 4.60 - 10.80 10^3/mcL AO Auto Heme SS LABORATORYOrdered By: Song Lcuero on 11-20-2021 Calcium [Mass/Vol] 9.7 mg/dL Invalid Interpretation Code 8.4 - 10.2 mg/dL AO ADM SS Chloride [Moles/Vol] 100 mmol/L Invalid Interpretation Code 98 - 107 mmol/L AO ADM SS CO2 [Moles/Vol] 24 mmol/L Invalid Interpretation Code 22 - 29 mmol/L AO ADM SS Creatinine [Mass/Vol] 0.87 mg/dL Invalid Interpretation Code 0.55 - 1.02 mg/dL AO ADM SS Electrolyte Balance 16.0 mEq/L Invalid Interpretation Code 4.0 - 15.0 mEq/L AO ADM SS Ethanol Level mg/dL Invalid Interpretation Code 0 - 3 mg/dL AO Chemistry S Glucose [Mass/Vol] 127 mg/dL Invalid Interpretation Code 70 - 105 mg/dL AO ADM SS Potassium [Moles/Vol] 3.0 mmol/L Invalid Interpretation Code 3.5 - 5.1 mmol/L AO ADM SS Sodium [Moles/Vol] 140 mmol/L Invalid Interpretation Code 136 - 145 mmol/L AO ADM SS Urea nitrogen [Mass/Vol] 10 mg/dL Invalid Interpretation Code 7 - 18 mg/dL AO ADM SS Urea nitrogen/Creatinine [Mass ratio] 11 ratio Invalid Interpretation Code 7 - 27 ratio AO ADM SS LABORATORYOrdered By: SYSTEM SYSTEM on 11-20-2021 GFR 98 ml/min/1.73sqm Invalid Interpretation Code AO Chemistry S GFR Non- 81 ml/min/1.73sqm Invalid Interpretation Code AO Chemistry S PREGUon 11-20-2021 HCG ( test) Ql (U) Negative Normal [facility] [place] ([place]) Comment on above: Performed By: #### P REGU, TOXSC #### [address] [address] test (u) int Not detected Invalid Interpretation Code [facility] [place] ([place]) Comment on above: Performed By: #### P REGU, TOXSC #### [address] [address] TOXSCon 11-20-2021 U Ampheta (AO) Negative Normal [facility] [place] ([place]) Comment on above: Performed By: #### P REGU, TOXSC #### [address] [address] U Petra (AO) Negative Normal [facility] [place] ([place]) Comment on above: Performed By: #### P REGU, TOXSC #### [address] [address] U Dank (AO) Negative [facility] ([place]) Comment on above: Performed By: #### P REGU, TOXSC #### [address] [address] U Cannab (AO) Negative Normal [facility] [place] ([place]) Comment on above: Performed By: #### P REGU, TOXSC #### [address] [address] U Cocaine (AO) Negative Normal [facility] [place] ([place]) Comment on above: Performed By: #### P REGU, TOXSC #### [address] [address] U Methadone (AO) Negative Normal [facility] [place] ([place]) Comment on above: Performed By: #### P REGU, TOXSC #### [address] [address] U PCP (AO) Negative [facility] ([place]) Comment on above: Performed By: #### P REGU, TOXSC #### [address] [address] U TCA (AO) Negative [facility] ([place]) Comment on above: Performed By: #### P REGU, TOXSC #### [address] [address] Urine Opiates (AO) Negative Normal [facility] ([place]) Comment on above: Performed By: #### P REGU, TOXSC #### [address] [address] Add On Lab TestOrdered By: Nereyda Horn on 11-10-2020 Add On Accepted [facility] Work Phone: Comment on above: Specimen available & acceptable for analysis. Test Performed by [facility], [address] , [address] Work Phone: Add on test from HISon 11-10 Add on test from HIS Accepted Normal [facility] Comment on above: Result Comment: Spec imen available & acceptable for analysis. Performed By: #### A DDON #### [facility] [address] [place] [address] Comp Metabolic Panelon 11-10 ALT [Catalytic activity/Vol] 21 U/L Normal 0-34 [facility] Comment on above: Result Comment: The ALT test is performed by an updated assay method. Please note that the reference intervals have been changed and are now sex specific. Performed By: #### Q WNT4, CMP3, MG3, HEMDF, TROPN #### [facility] [address] [place] [address] Calcium [Mass/Vol] 9.5 mg/dL Normal 8.4-10.4 [facility] Comment on above: Performed By: #### Q WNT4, CMP3, MG3, HEMDF, TROPN #### [facility] [address] [place] [address] Glucose [Mass/Vol] 104 mg/dL High 70-100 [facility] Comment on above: Performed By: #### Q WNT4, CMP3, MG3, HEMDF, TROPN #### [facility] [address] [place] [address] ALP [Catalytic activity/Vol] 65 U/L Normal 38-126 [facility] Comment on above: Performed By: #### Q WNT4, CMP3, MG3, HEMDF, TROPN #### [facility] [address] [place] [address] Anion gap [Moles/Vol] 11 mmol/L Normal 3-13 [facility] Comment on above: Performed By: #### Q WNT4, CMP3, MG3, HEMDF, TROPN #### [facility] [address] [place] [address] AST [Catalytic activity/Vol] 26 U/L Normal 15-46 [facility] Comment on above: Performed By: #### Q WNT4, CMP3, MG3, HEMDF, TROPN #### [facility] [address] [place] [address] Bilirubin [Mass/Vol] 0.5 mg/dL Normal 0.2-1.3 [facility] Comment on above: Performed By: #### Q WNT4, CMP3, MG3, HEMDF, TROPN #### [facility] [address] [place] [address] CO2 [Moles/Vol] 24 mmol/L Normal 22-30 [facility] Comment on above: Performed By: #### Q WNT4, CMP3, MG3, HEMDF, TROPN #### [facility] [address] [place] [address] Creatinine [Mass/Vol] 0.51 mg/dL Low 0.52-1.25 [facility] Comment on above: Performed By: #### Q WNT4, CMP3, MG3, HEMDF, TROPN #### [facility] [address] [place] [address] eGFR OTHER > 90.0 Normal >60 [facility] Comment on above: Result Comment: KDIG O guidelines provide the following GFR categories: Stage GFR(ml/min/1.73 m2) Terms G1 >=90 Normal or high G2 60-89 Mildly decreased* G3a 45-59 Mildly to moderately decreased G3b 30-44 Moderately to severely decreased G4 15-29 Severely decreased G5 <15 Kidney failure *Relative to young adult level. In the absence of evidence of kidney damage, neither GFR category G1 nor G2 fulfill the criteria for CKD. The CKD-EPI equation is validated in individuals 18 years of age and older. Currently the best equation for estimating glomerular filtration rate (GFR) from serum creatinine in children is the Bedside Pace equation. It is less accurate in patients with extremes of muscle mass, restriction of dietary protein, ingestion of creatine, extra-renal metabolism of creatinine, or treatment with medications that affect renal tubular creatinine secretion. Performed By: #### Q WNT4, CMP3, MG3, HEMDF, TROPN #### [facility] [address] [place] [address] GFR/1.73 sq M.predicted among blacks MDRD (S/P/Bld) [Vol rate/Area] mL/min/{1.73_m2} Normal >60 [facility] Comment on above: Performed By: #### Q WNT4, CMP3, MG3, HEMDF, TROPN #### [facility] [address] [place] [address] Protein [Mass/Vol] 7.7 g/dL Normal 6.3-8.2 [facility] Comment on above: Performed By: #### Q WNT4, CMP3, MG3, HEMDF, TROPN #### [facility] [address] [place] [address] Urea nitrogen [Mass/Vol] 10 mg/dL Normal 7-20 [facility] Comment on above: Performed By: #### Q WNT4, CMP3, MG3, HEMDF, TROPN #### [facility] [address] [place] [address] Potassium [Moles/Vol] 4.0 mmol/L Normal 3.5-5.1 [facility] Comment on above: Performed By: #### Q WNT4, CMP3, MG3, HEMDF, TROPN #### [facility] [address] [place] [address] Sodium [Moles/Vol] 137 mmol/L Normal 135-145 [facility] Comment on above: Performed By: #### Q WNT4, CMP3, MG3, HEMDF, TROPN #### [facility] [address] [place] [address] Albumin [Mass/Vol] 4.7 g/dL Normal 3.5-5.0 [facility] Comment on above: Performed By: #### Q WNT4, CMP3, MG3, HEMDF, TROPN #### [facility] [address] [place] [address] Chloride [Moles/Vol] 103 mmol/L Normal 98-107 [facility] Comment on above: Performed By: #### Q WNT4, CMP3, MG3, HEMDF, TROPN #### [facility] [address] [place] [address] Comprehensive Metabolic Pane lOrdered By: Halie Horn on 11-10-2020 Albumin [Mass/Vol] 4.7 g/dL 3.5 - 5.0 g/dL [facility] Work Phone: ALP (Bld) [Catalytic activity/Vol] 65 U/L 38 - 126 U/L [facility] Work Phone: ALT [Catalytic activity/Vol] 21 U/L 0 - 34 U/L [facility] Work Phone: Comment on above: The ALT test is perf ormed by an updated assay method. Please note that the reference intervals have been changed and are now sex specific. Anion gap [Moles/Vol] 11 mmol/L 3 - 13 mmol/L [facility] Work Phone: [phone] AST [Catalytic activity/Vol] 26 U/L 15 - 46 U/L [facility] Work Phone: [phone] Bilirubin [Mass/Vol] 0.5 mg/dL 0.2 - 1 .3 mg/dL [facility] Work Phone: [phone] Calcium [Mass/Vol] 9.5 mg/dL 8.4 - 10. 4 mg/dL [facility] Work Phone: [phone] Chloride [Moles/Vol] 103 mmol/L 98 - 10 7 mmol/L [facility] Work Phone: [phone] CO2 [Moles/Vol] 24 mmol/L 22 - 30 mmol/L [facility] Work Phone: [phone] Creatinine [Mass/Vol] 0.51 mg/dL Low 0.52 - 1.25 mg/dL [facility] Work Phone: [phone] EGFR IF NonAfrican Danish >90.0 >60 mL/min [facility] Work Phone: [phone] Comment on above: KDIGO guidelines pro vide the following GFR categories: Stage GFR(ml/min/1.73 m2) Terms G1 >=90 Normal or high G2 60-89 Mildly decreased* G3a 45-59 Mildly to moderately decreased G3b 30-44 Moderately to severely decreased G4 15-29 Severely decreased G5 <15 Kidney failure *Relative to young adult level. In the absence of evidence of kidney damage, neither GFR category G1 nor G2 fulfill the criteria for CKD. The CKD-EPI equation is validated in individuals 18 years of age and older. Currently the best equation for estimating glomerular filtration rate (GFR) from serum creatinine in children is the Bedside Pace equation. It is less accurate in patients with extremes of muscle mass, restriction of dietary protein, ingestion of creatine, extra-renal metabolism of creatinine, or treatment with medications that affect renal tubular creatinine secretion. Free PSA/Total PSA [Mass fraction] 7.7 g/dL 6.3 - 8.2 g/dL [facility] Work Phone: [phone] GFR/1.73 sq M.predicted among blacks MDRD (S/P/Bld) [Vol rate/Area] mL/min/{1.73_m2} >60 mL/min [facility] Work Phone: [phone] Glucose [Mass/Vol] 104 mg/dL High 70 - 100 mg/dL [facility] Work Phone: [phone] Interpretation and review of laboratory results Abnormal [employer] Work Phone: [phone] Potassium [Moles/Vol] 4.0 mmol/L 3.5 - 5.1 mmol/L [facility] Work Phone: [phone] Sodium [Moles/Vol] 137 mmol/L 135 - 145 mmol/L [facility] Work Phone: [phone] Urea nitrogen (BldV) [Mass/Vol] 10 mg/dL 7 - 20 mg/dL [facility] Work Phone: [phone] HCG, Quantitative, Ordered By: Halie Horn on 11-10-2020 hCG Quant 75[address] m[IU]/mL Abnormal [employer] Work Phone: Comment on above: Females < 5 Values in should double every 2 to 3 days for the first 6 weeks.Elevated concentrations of human chorionic gonadotropin (hCG) measured in the first trimester of are observed in normal , but may serve as an indication of chorionic carcinoma, hydatiform mole, or multiple .Decreasing hCG concentrations indicate threatened or missed , recent termination of , ectopic , gestosis or intrauterine . Ondina- and postmenopausal females may have detectable hCG concentrations (< or = to 14 mIU/mL) due to pituitary production of hCG. Serum follicle-stimulating hormone measurement may aid in ruling-out in this population. Cutoffs of greater than 20 to 45 mIU/mL have been suggested and are method dependent. False-elevations (called phantom human chorionic gonadotropin: hCG) may occur with patients who have human antianimal or heterophilic antibodies. Some specimens may not dilute linearly due to abnormal forms of hCG. Elevated hCG concentrations not associated with are found in patients with other diseases such as tumors of the germ cells, ovaries, bladder, pancreas, stomach, lungs, and liver. This test is not intended to detect or monitor tumors or gestational trophoblastic disease. Interpretation and review of laboratory results Abnormal [employer] Work Phone: Test Performed by [facility], [address] , [place], [place] [address] [facility] Work Phone: [phone] Hemogram (CBC) w/Auto DiffOr dered By: Halie Horn on 11-10-2020 Absolute Baso # 0.0 10*3/uL 0.0 - 0.2 10*3/uL [facility] Work Phone: [phone] Absolute Neut # 2.9 10*3/uL 1.8 - 7.0 10*3/uL [facility] Work Phone: 22 Basophils/100 WBC (Bld) 0.5 % 0.0 - 2.0 % [facility] Work Phone: Eosinophils (Bld) [#/Vol] 0.1 10*3/uL 0.0 - 0.5 10*3/uL [facility] Work Phone: [phone] Eosinophils/100 WBC (Bld) 1.5 % 1.0 - 6.0 % [facility] Work Phone: Granulocytes/100 WBC (Bld) 53.6 % 40.0 - 80.0 % [facility] Work Phone: Hematocrit (Bld) [Volume fraction] 38.3 % 35.0 - 47.0 % [facility] Work Phone: 22 Hemoglobin.gastrointest inal spec 1 Ql (Stl) 12.7 g/dL 11.7 - 16.0 g/dL [facility] Work Phone: 22 Lymphocytes (Bld) [#/Vol] 2.0 10*3/uL 1.0 - 4.3 10*3/uL [facility] Work Phone: 22 Lymphocytes/100 WBC (Bld) 36.6 % 20.0 - 40.0 % [facility] Work Phone: MCH (RBC) [Entitic mass] 30.1 pg 26.0 - 34.0 pg [facility] Work Phone: 22 MCHC (RBC) [Mass/Vol] 33.2 % 32.0 - 36.0 % [facility] Work Phone: MCV (RBC) [Entitic vol] 90.6 fL 79.0 - 98.0 fL [employer] Work Phone: [phone] Monocytes (Bld) [#/Vol] 0.4 10*3/uL 0.0 - 0.8 10*3/uL [facility] Work Phone: [phone] Monocytes/100 WBC (Bld) 7.8 % 2.0 - 10.0 % [facility] Work Phone: 1 Platelet distribution width (Bld) [Ratio] 13.3 % 11.5 - 14.5 % [facility] Work Phone: 1 Platelet mean volume (Bld) [Entitic vol] 7.8 fL 7.4 - 10.4 fL [facility] Work Phone: 1) Platelets (Bld) [#/Vol] 284 10*3/uL 140 - 440 10*3/uL [facility] Work Phone: 1 RBC (Bld) [#/Vol] 4.22 10*6/uL 3.80 - 5.2 0 10*6/uL [facility] Work Phone: [phone] WBC (Bld) [#/Vol] 5.4 10*3/uL 3.6 - 10.7 10*3/uL [facility] Work Phone: [phone] Performed by [facility], [address] Daily Work Phone: [phone] Hemogram w/ Autodiffon 11-10 Abs Baso Cnt 0.0 10*3/uL Normal 0.0-0.[address] [facility] Comment on above: Performed By: #### Q WNT4, CMP3, MG3, HEMDF, TROPN #### [facility] [address] [place] [address] Abs Neutrophile Cnt 2.9 10*3/uL Normal 1.8-7.0 [facility] Comment on above: Performed By: #### Q WNT4, CMP3, MG3, HEMDF, TROPN #### [facility] [address] [place] [address] Basophils/100 WBC (Bld) 0.5 % Normal 0.0-2.0 [facility] Comment on above: Performed By: #### Q WNT4, CMP3, MG3, HEMDF, TROPN #### [facility] [address] [place] [address] Eosinophils (Bld) [#/Vol] 0.1 10*3/uL Normal 0.0-0.5 [facility] Comment on above: Performed By: #### Q WNT4, CMP3, MG3, HEMDF, TROPN #### [facility] [address] [place] [address] Eosinophils/100 WBC (Bld) 1.5 % Normal 1.0-6.0 [facility] Comment on above: Performed By: #### Q WNT4, CMP3, MG3, HEMDF, TROPN #### [facility] [address] [place] [address] Erythrocyte distribution width (RBC) [Ratio] 13.3 % Normal 11.5-14.5 [facility] Comment on above: Performed By: #### Q WNT4, CMP3, MG3, HEMDF, TROPN #### [facility] [address] [place] [address] Granulocytes/100 WBC (Bld) 53.6 % Normal 40.0-80.0 [facility] Comment on above: Performed By: #### Q WNT4, CMP3, MG3, HEMDF, TROPN #### [facility] [address] [place] [address] Hematocrit (Bld) [Volume fraction] 38.3 % Normal 35.0-47.0 [facility] Comment on above: Performed By: #### Q WNT4, CMP3, MG3, HEMDF, TROPN #### [facility] [address] [place] [address] Hemoglobin (Bld) [Mass/Vol] 12.7 g/dL Normal 11.7-16.0 [facility] Comment on above: Performed By: #### Q WNT4, CMP3, MG3, HEMDF, TROPN #### [facility] [address] [place] [address] Lymphocytes (Bld) [#/Vol] 2.0 10*3/uL Normal 1.0-4.3 [facility] Comment on above: Performed By: #### Q WNT4, CMP3, MG3, HEMDF, TROPN #### [facility] [address] [place] [address] Lymphocytes/100 WBC (Bld) 36.6 % Normal 20.0-40.0 [facility] Comment on above: Performed By: #### Q WNT4, CMP3, MG3, HEMDF, TROPN #### [facility] [address] [place] [address] MCH (RBC) [Entitic mass] 30.1 pg Normal 26.0-34.0 [facility] Comment on above: Performed By: #### Q WNT4, CMP3, MG3, HEMDF, TROPN #### [facility] [address] [place] [address] MCHC 33.2 % Normal 32.0-36.0 [facility] Comment on above: Performed By: #### Q WNT4, CMP3, MG3, HEMDF, TROPN #### [facility] [address] [facility] [place] [address] MCV (RBC) [Entitic vol] 90.6 fL Normal 79.0-98.0 [facility] Comment on above: Performed By: #### Q WNT4, CMP3, MG3, HEMDF, TROPN #### [facility] [address] [place] [address] Monocytes (Bld) [#/Vol] 0.4 10*3/uL Normal 0.0-0.8 [facility] Comment on above: Performed By: #### Q WNT4, CMP3, MG3, HEMDF, TROPN #### [facility] [address] [place] [address] Monocytes/100 WBC (Bld) 7.8 % Normal 2.0-10.0 [facility] Comment on above: Performed By: #### Q WNT4, CMP3, MG3, HEMDF, TROPN #### [facility] [address] [place] [address] Platelet mean volume (Bld) [Entitic vol] 7.8 fL Normal 7.4-10.4 [facility] Comment on above: Performed By: #### Q WNT4, CMP3, MG3, HEMDF, TROPN #### [facility] [address] [place] [address] Platelets (Bld) [#/Vol] 284 10*3/uL Normal 140-440 [facility] Comment on above: Performed By: #### Q WNT4, CMP3, MG3, HEMDF, TROPN #### [facility] [address] [place] [address] RBC (Bld) [#/Vol] 4.22 10*6/uL Normal 3.80-5.20 [facility] Comment on above: Performed By: #### Q WNT4, CMP3, MG3, HEMDF, TROPN #### [facility] [address] [place] [address] WBC (Bld) [#/Vol] 5.4 10*3/uL Normal 3.6-10.7 [facility] Comment on above: Performed By: #### Q WNT4, CMP3, MG3, HEMDF, TROPN #### [facility] [address] [place] [address] Magnesiumon 11-10-2020 Magnesium [Mass/Vol] 1.9 mg/dL Normal 1.6-2.3 [facility] Comment on above: Performed By: #### Q WNT4, CMP3, MG3, HEMDF, TROPN #### [facility] [address] [place] [address] MagnesiumOrdered By: Halie holcomb on 11-10-2020 Magnesium [Mass/Vol] 1.9 mg/dL 1.6 - 2 .3 mg/dL [facility] Work Phone: No Panel InformationOrdered By: Halie Horn on 11-10-2020 Test Performed by [facility], [address] , [place], [place] [address] [facility] Work Phone: Troponin Ion 11-10-2020 Troponin I.cardiac [Mass/Vol] ng/mL Normal 0.000-0.034 [facility] [employer] Comment on above: Result Comment: . Performed By: #### Q WNT4, CMP3, MG3, HEMDF, TROPN #### [employer] [address] [place] [address] Troponin [id number] By: Halie Horn on 11-10-2020 Troponin I.cardiac [Mass/Vol] ng/mL 0.000 - 0.034 ng/mL [employer] Work Phone: Comment on above: . Test Performed by [facility], [address] , [place], [place] [address] [employer] Work Phone: US OB TRANSVAGINALOrdered By : Halie Horn on 11-10-2020 Patient Name: PAMELA ALEGRIA Ultrasound ACCESSION EXAM DATE/TIME PROCEDURE ORDERING PROVIDER [id number] 11/10/2020 12:13 EDT US 4275 -SUSAN HALIE Transvaginal CPT code 43174 Reason For Exam (US Transvaginal) per history, unable to visualized FHR on TA, near syncopal Report Indication: Irregular cycles. FINDINGS: Transvaginal sonography performed. Gestational sac present 9.2 mm. No pole seen. No cardiac activity. 4 mm yolk sac suspected. Uterus 6.0 x 5.0 x 3.9 cm. Cervix 2.7 cm. No free fluid. Right ovary unremarkable 2.4 cm. Left ovary has heterogeneous lesion with some cystic components measuring 2.4 x 1.5 x 1.9 cm. Adjacent cystic area 1.7 cm. IMPRESSION: No definite pole. See above. Questionable very early . Please correlate laboratory values. Left ovarian/adnexal cystic structure. Significance uncertain. Consider follow-up. Report Dictated on --- Final --- Dictating Physician: MD CAMACHO JOHN Signed Date and Time: 11/10/2020 12:34 pm Signed by: MD CAMACHO JOHN Transcribed Date and Time: 11/10/2020 12:35 [facility] Work Phone: Luc, [facility] Incoming Radiology Results From [employer] - 11/10/2020 12:35 PM EDT Patient Name: PAMELA ALEGRIA Ultrasound ACCESSION EXAM DATE/TIME PROCEDURE ORDERING PROVIDER [id number] 11/10/2020 12:13 EDT US HALIE LEAL Transvaginal CPT code 50168 Reason For Exam (US Transvaginal) per history, unable to visualized FHR on TA, near syncopal Report Indication: Irregular cycles. FINDINGS: Transvaginal sonography performed. Gestational sac present 9.2 mm. No pole seen. No cardiac activity. 4 mm yolk sac suspected. Uterus 6.0 x 5.0 x 3.9 cm. Cervix 2.7 cm. No free fluid. Right ovary unremarkable 2.4 cm. Left ovary has heterogeneous lesion with some cystic components measuring 2.4 x 1.5 x 1.9 cm. Adjacent cystic area 1.7 cm. IMPRESSION: No definite pole. See above. Questionable very early . Please correlate laboratory values. Left ovarian/adnexal cystic structure. Significance uncertain. Consider follow-up. Report Dictated on --- Final --- Dictating Physician: MD CAMACHO JOHN Signed Date and Time: 11/10/2020 12:34 pm Signed by: MD CAMACHO JOHN Transcribed Date and Time: 11/10/2020 12:35 [facility] Work Phone: US Transvaginalon 11-10-2020 US Transvaginal Patient Name: PAMELA ALEGRIA Ultrasound ACCESSION EXAM DATE/TIME PROCEDURE ORDERING PROVIDER [id number] 11/10/2020 12:13 EDT US HALIE LEAL Transvaginal CPT code 20367 Reason For Exam (US Transvaginal) per history, unable to visualized FHR on TA, near syncopal Report Indication: Irregular cycles. FINDINGS: Transvaginal sonography performed. Gestational sac present 9.2 mm. No pole seen. No cardiac activity. 4 mm yolk sac suspected. Uterus 6.0 x 5.0 x 3.9 cm. Cervix 2.7 cm. No free fluid. Right ovary unremarkable 2.4 cm. Left ovary has heterogeneous lesion with some cystic components measuring 2.4 x 1.5 x 1.9 cm. Adjacent cystic area 1.7 cm. IMPRESSION: No definite pole. See above. Questionable very early . Please correlate laboratory values. Left ovarian/adnexal cystic structure. Significance uncertain. Consider follow-up. Report Dictated on Final Dictating Physician: MD CAMACHO JOHN Signed Date and Time: 11/10/2020 12:34 pm Signed by: MD CAMACHO JOHN Transcribed Date and Time: 11/10/2020 12:35 Normal [facility] [employer] hCG Quantitativeon hCG Quantitative 29747 m[IU]/mL Abnormal [facility] [employer] Comment on above: Result Comment: Fema les < 5 Values in should double every 2 to 3 days for the first 6 weeks.Elevated concentrations of human chorionic gonadotropin (hCG) measured in the first trimester of are observed in normal , but may serve as an indication of chorionic carcinoma, hydatiform mole, or multiple .Decreasing hCG concentrations indicate threatened or missed , recent termination of , ectopic , gestosis or intrauterine . Ondina- and postmenopausal females may have detectable hCG concentrations (< or = to 14 mIU/mL) due to pituitary production of hCG. Serum follicle-stimulating hormone measurement may aid in ruling-out in this population. Cutoffs of greater than 20 to 45 mIU/mL have been suggested and are method dependent. False-elevations (called phantom human chorionic gonadotropin: hCG) may occur with patients who have human antianimal or heterophilic antibodies. Some specimens may not dilute linearly due to abnormal forms of hCG. Elevated hCG concentrations not associated with are found in patients with other diseases such as tumors of the germ cells, ovaries, bladder, pancreas, stomach, lungs, and liver. This test is not intended to detect or monitor tumors or gestational trophoblastic disease. Performed By: #### Q WNT4, CMP3, MG3, HEMDF, TROPN #### [facility] [address] [place] [address] Comprehensive Panelon 2018 Urea nitrogen [Mass/Vol] 18 mg/dL Normal 7-18 [facility] Comment on above: Performed By: #### P 8 #### [facility] [address] [place], [place] [address] ALP [Catalytic activity/Vol] 67 U/L Normal 46-116 [facility] Comment on above: Performed By: #### P 8 #### [facility] [address] [place], [place] [address] Protein [Mass/Vol] 7.0 g/dL Normal 6.4-8.2 [facility] Comment on above: Performed By: #### P 8 #### [facility] [address] [place], [place] [address] ALT [Catalytic activity/Vol] 20 U/L Normal 12-78 [facility] Comment on above: Performed By: #### P 8 #### [facility] [address] [place], [place] [address] Bilirubin [Mass/Vol] 0.2 mg/dL Normal 0.2-1.0 [facility] Comment on above: Performed By: #### P 8 #### [facility] [address] [place], [place] [address] Creatinine [Mass/Vol] 0.59 mg/dL Normal 0.51-0.95 [facility] Comment on above: Performed By: #### P 8 #### [facility] [address] [place], [place] [address] AST [Catalytic activity/Vol] 14 U/L Normal 9-37 [facility] Comment on above: Performed By: #### P 8 #### [facility] [address] [place], [place] [address] Albumin [Mass/Vol] 3.9 g/dL Normal 3.4-5.0 [facility] Comment on above: Performed By: #### P 8 #### [facility] [address] [place], [place] [address] Anion gap [Moles/Vol] 9 mmol/L Normal 8-16 [facility] Comment on above: Performed By: #### P 8 #### [facility] [address] [place], [place] [address] CO2 [Moles/Vol] 30 mmol/L Normal 21-32 [facility] Comment on above: Performed By: #### P 8 #### [facility] [address] [place], [place] [address] Glucose [Mass/Vol] 95 mg/dL Normal 70-99 [facility] Comment on above: Performed By: #### P 8 #### [facility] [address] [place], [place] [address] Calcium [Mass/Vol] 9.5 mg/dL Normal 8.5-10.1 [facility] Comment on above: Performed By: #### P 8 #### [facility] [address] [place], [place] [address] Chloride [Moles/Vol] 105 mmol/L Normal 98-107 [facility] Comment on above: Performed By: #### P 8 #### [facility] [address] [place], [place] [address] Potassium [Moles/Vol] 4.5 mmol/L Normal 3.5-5.1 [facility] Comment on above: Performed By: #### P 8 #### [facility] [address] [place], [place] [address] Sodium [Moles/Vol] 139 mmol/L Normal 136-145 [facility] Comment on above: Performed By: #### P 8 #### [facility] [address] [place], [place] [address] Hemogramon 12-04-2018 Erythrocyte distribution width (RBC) [Ratio] 13.9 % Normal 11.7-14.4 [facility] Comment on above: Performed By: #### P 8 #### [facility] [address] [place], [place] [address] Hematocrit (Bld) [Volume fraction] 39.6 % Normal 34.1-44.9 [facility] Comment on above: Performed By: #### P 8 #### [facility] [address] [place], [place] [address] Hemoglobin (Bld) [Mass/Vol] 13.0 g/dL Normal 11.2-15.7 [facility] Comment on above: Performed By: #### P 8 #### [facility] [address] [place] [address] MCH (RBC) [Entitic mass] 31.1 pg Normal 25.6-32.2 [facility] Comment on above: Performed By: #### P 8 #### [facility] [address] [place] [address] MCHC (RBC) [Mass/Vol] 32.8 % Normal 31.6-34.8 [facility] Comment on above: Performed By: #### P 8 #### [facility] [address] [place] [address] MCV (RBC) [Entitic vol] 94.7 fL Normal 79.4-94.8 [facility] Comment on above: Performed By: #### P 8 #### [facility] [address] [place] [address] Platelet mean volume (Bld) [Entitic vol] 10.6 fL Normal 9.4-12.3 [facility] Comment on above: Performed By: #### P 8 #### [facility] [address] [place] [address] Platelets (Bld) [#/Vol] 243 thou/cmm Normal 182-369 [facility] Comment on above: Performed By: #### P 8 #### [facility] [address] [place] [address] RBC (Bld) [#/Vol] 4.18 mil/cmm Normal 3.93-5.22 [facility] Comment on above: Performed By: #### P 8 #### [facility] [address] [place] [address] RDW SD 48.5 fl High 36.4-46.3 [facility] Comment on above: Performed By: #### P 8 #### [facility] [address] [place] [id number] WBC (Bld) [#/Vol] 6.12 thou/cmm Normal 3.98-10.04 [facility] Comment on above: Performed By: #### P 8 #### [facility] [address] [place] [id number] MDRD GFRon 12-04-2018 GFR/1.73 sq M predicted among non-blacks MDRD (S/P/Bld) [Vol rate/Area] mL/min/{1.73_m2} Normal >60mL/min/1. 73m2 [facility] Comment on above: Result Comment: If t he patient is , multiply the result by 1.210. Performed By: #### P 8 #### [facility] [address] [place] [address] Valproic Acid,Alma.on 2018 Valproic Acid,Alma. 61 mg/L Normal 50-100 [facility] Comment on above: Performed By: #### P 8 #### [place] [address] Potassium Bloodon 09-07-2018 Potassium [Moles/Vol] 3.5 mmol/L Normal 3.5-5.1 [facility] Comment on above: Performed By: #### C BCD1 #### [place] [address] Glucose Meteron 09-06-2018 Glucose [Mass/Vol] 110 mg/dL High 70-99 [facility] Comment on above: Result Comment: DARWIN CARTER Performed By: #### C BCD1 #### [place] [address] Activated PTTon 09-05-2018 aPTT Coag (Bld) [Time] 27.6 s Normal 23.0-32.4 [facility] Comment on above: Result Comment: Note : New Reference Range Unfractionated Heparin Therapeutic Ranges: Standard Heparin Nomogram: 53 to 78 seconds (anti-Xa level of 0.3 to 0.7 U/mL) Low Dose/ACS Nomogram: 49 to 67 seconds (anti-Xa level of 0.2 to 0.5 U/mL) Stroke Treatment Nomogram: 49 to 67 seconds (anti-Xa level of 0.2 to 0.5 U/mL) Note: The APTT therapeutic range has been determined for the current lot of laboratory APTT reagent in use throughout the [facility]. Performed By: #### C BCD1 #### [facility] [address] [place] [address] Comprehensive Panelon 2018 AST [Catalytic activity/Vol] 12 U/L Normal 9-37 [facility] Comment on above: Performed By: #### C BCD1 #### [facility] [address] [place], [place] [address] ALP [Catalytic activity/Vol] 51 U/L Normal 46-116 [facility] Comment on above: Performed By: #### C BCD1 #### [facility] [address] [place] [address] Urea nitrogen [Mass/Vol] 11 mg/dL Normal 7-18 [facility] Comment on above: Performed By: #### C BCD1 #### [facility] [address] [place] [address] Protein [Mass/Vol] 7.6 g/dL Normal 6.4-8.2 [facility] Comment on above: Performed By: #### C BCD1 #### [facility] [address] [place] [address] Creatinine [Mass/Vol] 0.62 mg/dL Normal 0.51-0.95 [facility] Comment on above: Performed By: #### C BCD1 #### [facility] [address] [place] [address] ALT [Catalytic activity/Vol] 22 U/L Normal 12-78 [facility] Comment on above: Performed By: #### C BCD1 #### [facility] [address] [place], [place] [address] Bilirubin [Mass/Vol] 0.4 mg/dL Normal 0.2-1.0 [facility] Comment on above: Performed By: #### C BCD1 #### [facility] [address] [place], [place] [address] Albumin [Mass/Vol] 4.2 g/dL Normal 3.4-5.0 [facility] Comment on above: Performed By: #### C BCD1 #### [facility] [address] [place] [address] Glucose [Mass/Vol] 78 mg/dL Normal 70-99 [facility] Comment on above: Performed By: #### C BCD1 #### [facility] [address] [place], [place] [address] Anion gap [Moles/Vol] 11 mmol/L Normal 8-16 [facility] Comment on above: Performed By: #### C BCD1 #### [facility] [address] [place], [place] [address] CO2 [Moles/Vol] 26 mmol/L Normal 21-32 [facility] Comment on above: Performed By: #### C BCD1 #### [facility] [address] [place] [address] Calcium [Mass/Vol] 9.0 mg/dL Normal 8.5-10.1 [facility] Comment on above: Performed By: #### C BCD1 #### [facility] [address] [place] [address] Chloride [Moles/Vol] 105 mmol/L Normal 98-107 [facility] Comment on above: Performed By: #### C BCD1 #### [facility] [address] [place] [address] Potassium [Moles/Vol] 3.2 mmol/L Low 3.5-5.1 [facility] Comment on above: Performed By: #### C BCD1 #### [facility] [address] [place] [address] Sodium [Moles/Vol] 139 mmol/L Normal 136-145 [facility] Comment on above: Performed By: #### C BCD1 #### [facility] [address] [place], [place] [address] Hemogram/Diffon 09-05-2018 Abs Immature Grans 0.01 thou/cmm Normal 0.00-0.05 [facility] Comment on above: Performed By: #### C BCD1 #### [facility] [address] [place], [place] [address] Abs. Baso 0.02 thou/cmm Normal 0.01-0.08 [facility] Comment on above: Performed By: #### C BCD1 #### [facility] [address] [place], [place] [address] Abs. Bartholomew 0.39 thou/cmm Normal 0.27-0.70 [facility] Comment on above: Performed By: #### C BCD1 #### [facility] [address] [place], [place] [address] Abs. Neut (ANC) 2.11 thou/cmm Normal 1.56-6.13 [facility] Comment on above: Performed By: #### C BCD1 #### [facility] [address] [place] [address] Basophils/100 WBC (Bld) 0.3 % Normal [facility] Comment on above: Performed By: #### C BCD1 #### [facility] [address] [place] [address] Eosinophils (Bld) [#/Vol] 0.09 thou/cmm Normal 0.00-0.31 [facility] Comment on above: Performed By: #### C BCD1 #### [facility] [address] [place] [address] Eosinophils/100 WBC (Bld) 1.6 % Normal [facility] Comment on above: Performed By: #### C BCD1 #### [facility] [address] [place], [place] [address] Erythrocyte distribution width (RBC) [Ratio] 12.3 % Normal 11.7-14.4 [facility] Comment on above: Performed By: #### C BCD1 #### [facility] [address] [place], [place] [address] Hematocrit (Bld) [Volume fraction] 38.7 % Normal 34.1-44.9 [facility] Comment on above: Performed By: #### C BCD1 #### [facility] [address] [place], [place] [address] Hemoglobin (Bld) [Mass/Vol] 12.7 g/dL Normal 11.2-15.7 [facility] Comment on above: Performed By: #### C BCD1 #### [facility] [address] [place] [address] Immature Grans 0.20 % Normal [facility] Comment on above: Performed By: #### C BCD1 #### [facility] [address] [place], [place] [address] Lymphocytes (Bld) [#/Vol] 3.15 thou/cmm Normal 1.18-3.74 [facility] Comment on above: Performed By: #### C BCD1 #### [facility] [address] [place], [place] [address] Lymphocytes/100 WBC (Bld) 54.6 % Normal [facility] Comment on above: Performed By: #### C BCD1 #### [facility] [address] [place], [place] [address] MCH (RBC) [Entitic mass] 30.1 pg Normal 25.6-32.2 [facility] Comment on above: Performed By: #### C BCD1 #### [facility] [address] [place], [place] [address] MCHC (RBC) [Mass/Vol] 32.8 % Normal 31.6-34.8 [facility] Comment on above: Performed By: #### C BCD1 #### [facility] [address] [place], [place] [address] MCV (RBC) [Entitic vol] 91.7 fL Normal 79.4-94.8 [facility] Comment on above: Performed By: #### C BCD1 #### [facility] [address] [place], [place] [address] Monocytes/100 WBC (Bld) 6.8 % Normal [facility] Comment on above: Performed By: #### C BCD1 #### [facility] [address] [place], [place] [address] Platelet mean volume (Bld) [Entitic vol] 9.7 fL Normal 9.4-12.3 [facility] Comment on above: Performed By: #### C BCD1 #### [facility] [address] [place], [place] [address] Platelets (Bld) [#/Vol] 283 thou/cmm Normal 182-369 [facility] Comment on above: Performed By: #### C BCD1 #### [facility] [address] [place], [place] [address] RBC (Bld) [#/Vol] 4.22 mil/cmm Normal 3.93-5.22 [facility] Comment on above: Performed By: #### C BCD1 #### [facility] [address] [place], [place] [address] RDW SD 41.3 fl Normal 36.4-46.3 [facility] Comment on above: Performed By: #### C BCD1 #### [facility] [address] [place] [address] Seg Neutrophil 36.5 % Normal [facility] Comment on above: Performed By: #### C BCD1 #### [facility] [address] [place] [address] WBC (Bld) [#/Vol] 5.77 thou/cmm Normal 3.98-10.04 [facility] Comment on above: Performed By: #### C BCD1 #### [facility] [address] [place] [address] MDRD GFRon 09-05-2018 GFR/1.73 sq M predicted among non-blacks MDRD (S/P/Bld) [Vol rate/Area] mL/min/{1.73_m2} Normal >60mL/min/1. 73m2 [facility] Comment on above: Result Comment: If t he patient is , multiply the result by 1.210. Performed By: #### C BCD1 #### [facility] [address] [place] [address] Magnesium Bloodon 09-05-2018 Magnesium [Mass/Vol] 2.2 mg/dL Normal 1.6-2.6 [facility] Comment on above: Performed By: #### C BCD1 #### [facility] [address] [place] [address] Phosphorus Bloodon 9 Phosphate [Mass/Vol] 3.0 mg/dL Normal 2.5-4.9 [facility] Comment on above: Performed By: #### C BCD1 #### [facility] [address] [place] [address] Protimeon 09-05-2018 INR Coag (PPP) [Relative time] 1.02 {INR} Normal 0.90-1.30 [facility] Comment on above: Result Comment: Note : Reference Range Change Vitamin K Antagonist (VKA) Therapeutic Range: INR 2 to 3 (Target INR of 2.5) Note: For patients treated with VKA drugs, such as warfarin, the [employer] 2012 Guideline recommends a therapeutic INR range of 2 to 3 (target INR of 2.5). This recommendation includes high-risk patients with antiphospholipid syndrome with previous arterial or venous thromboembolism, current-generation mechanical or bioprosthetic aortic heart valve replacement. VKA Therapeutic Range for some Mechanical Valve Replacement: INR 2.5 to 3.5 (Target INR of 3) Note: Patients with mechanical aortic valve replacement and additional risk factors for thromboembolic events (atrial fibrillation, previous thromboembolism, LV dysfunction, hypercoagulable conditions) or an older generation mechanical AVR (i.e., ball in-Cage) or any mechanical MVR should have a INR therapeutic range of 2.5 to 3.5 target INR of 3). Gudelia GH, et al. Chest 2012; 141:7S-47S John RA, et al. JAC 2017; 70: 252-289 Performed By: #### P T #### [place] [address] PT Coag (PPP) [Time] 10.6 s Normal 9.7-13.0 [facility] Comment on above: Performed By: #### P T #### [facility] [address] [place] [id number] TSH, 3rd generationon 2018 TSH, 3rd generation 2.360 uIU/mL Normal 0.358-3.740 [facility] Comment on above: Performed By: #### C BCD1 #### [facility] [address] [place] [id number] Urine Drug Screenon 09-05-19 19 Urine Cocaine Metab Non-detected Normal Non-Detected [facility] Comment on above: Performed By: #### C BCD1 #### [place] [id number] Urine Opiate Non-detected Normal Non-Detected [facility] Comment on above: Performed By: #### C BCD1 #### [facility] [address] [place], [place] [address] Urine PCP Non-detected Normal Non-Detected [facility] Comment on above: Performed By: #### C BCD1 #### [address] [address] Urine THC Non-detected Normal Non-Detected [facility] Comment on above: Result Comment: Urin e Drug Cutoff Levels Urine Amphetamine 500 ng/mL Urine Barbiturate 200 ng/mL Urine Benzodiazepines 200 ng/mL Urine Cocaine 150 ng/mL Urine Phencyclidine (PCP) 25 ng/mL Urine Opiates 300 ng/mL Urine THC 50 ng/mL The results of these analytes are unconfirmed and reported qualitatively as detected or non-detected relative to the cutoff value. Detected results indicate the sample is likely to contain the analyte. Non-detected results indicate that either the sample does not contain the analyte or it is present in concentrations below the cutoff level. This drug screen should be used for medical diagnostic purposes only. Performed By: #### C BCD1 #### [place] [address] Urine Amphetamine Non-detected Normal Non-Detected [facility] Comment on above: Performed By: #### C BCD1 #### [place] [address] Urine Barbiturates Non-detected Normal Non-Detected [facility] Comment on above: Performed By: #### C BCD1 #### [address] [address] Urine Benzodiazepine Non-detected Normal Non-Detected [facility] Comment on above: Performed By: #### C BCD1 #### [place] [address] Urine HCG, Qual.on 9 Beta HCG ( test) Ql (U) Negative Normal Negative [facility] Comment on above: Performed By: #### C BCD1 #### [place] [address] Specific [place], Ur 1.011 Normal 1.005-1.030 [facility] Comment on above: Performed By: #### C BCD1 #### [place] [address] MDRD GFRon 07-02-2018 GFR/1.73 sq M predicted among non-blacks MDRD (S/P/Bld) [Vol rate/Area] mL/min/{1.73_m2} Normal >60mL/min/1. 73m2 [facility] Comment on above: Result Comment: If t he patient is , multiply the result by 1.210. Performed By: #### G FR #### [place] [address] Renal Panelon 07-02-2018 Calcium [Mass/Vol] 8.4 mg/dL Low 8.5-10.1 [facility] Comment on above: Result Comment: RESU LT RECHECKED Performed By: #### R ENAL #### [place] [address] Creatinine [Mass/Vol] 0.75 mg/dL Normal 0.51-0.95 [facility] Comment on above: Performed By: #### R ENAL #### [place] [address] Phosphate [Mass/Vol] 5.6 mg/dL High 2.5-4.9 [facility] Comment on above: Performed By: #### R ENAL #### [place] [address] Albumin [Mass/Vol] 3.4 g/dL Normal 3.4-5.0 [facility] Comment on above: Performed By: #### R ENAL #### [place] [address] Chloride [Moles/Vol] 109 mmol/L High 98-107 [facility] Comment on above: Performed By: #### R ENAL #### [address] [address] CO2 [Moles/Vol] 24 mmol/L Normal 21-32 [facility] Comment on above: Performed By: #### R ENAL #### [facility] 1 [place], [place] [address] Potassium [Moles/Vol] 4.4 mmol/L Normal 3.5-5.1 [facility] Comment on above: Performed By: #### R ENAL #### [facility] 1 [place], [place] [address] Sodium [Moles/Vol] 141 mmol/L Normal 136-145 [facility] Comment on above: Performed By: #### R ENAL #### [facility] 1 [place], [place] [address] Urea nitrogen [Mass/Vol] 18 mg/dL Normal 7-18 [facility] Comment on above: Performed By: #### R ENAL #### [facility] 1 [place], [place] [address] Glucose [Mass/Vol] 92 mg/dL Normal 70-99 [facility] Comment on above: Performed By: #### R ENAL #### [facility] 1 [place], [place] [address] Basic Panelon 07-01-2018 Creatinine [Mass/Vol] 0.67 mg/dL Normal 0.51-0.95 [facility] Comment on above: Performed By: #### P 8 #### [facility] 1 [place], [place] [address] Anion gap [Moles/Vol] 9 mmol/L Normal 8-16 [facility] Comment on above: Performed By: #### P 8 #### [facility] 1 [place], [place] [address] Calcium [Mass/Vol] 9.3 mg/dL Normal 8.5-10.1 [facility] Comment on above: Performed By: #### P 8 #### [facility] 1 [place], [place] [address] CO2 [Moles/Vol] 29 mmol/L Normal 21-32 [facility] Comment on above: Performed By: #### P 8 #### [facility] 1 [place], [place] [address] Glucose [Mass/Vol] 90 mg/dL Normal 70-99 [facility] Comment on above: Performed By: #### P 8 #### [facility] 1 [place], [place] [address] Urea nitrogen [Mass/Vol] 11 mg/dL Normal 7-18 [facility] Comment on above: Performed By: #### P 8 #### [facility] 1 [place], [place] [address] Chloride [Moles/Vol] 103 mmol/L Normal 98-107 [facility] Comment on above: Performed By: #### P 8 #### [facility] 1 [place], [place] [address] Potassium [Moles/Vol] 4.1 mmol/L Normal 3.5-5.1 [facility] Comment on above: Performed By: #### P 8 #### [facility] 1 [place] [id number] Sodium [Moles/Vol] 137 mmol/L Normal 136-145 [facility] Comment on above: Performed By: #### P 8 #### [facility] [address] [place] [address] [address] HEAD W/O CONTRASTon 07-01 CT HEAD W/O CONTRAST Performed at [facility] APPROVED BY: Dickson Payne MD EXAMINATION: CT HEAD W/O CONTRAST CLINICAL HISTORY: Headache. TECHNIQUE: Serial axial images without IV contrast are obtained from the vertex to the foramen magnum. MQ: [id number] Contrast: None CT Dose-Length Product: 785 mGy*cm CT Dose Reduction Employed: 3. mAs or kVp is manually adjusted based on either the patient size or age. COMPARISON: None. RESULT: Serial images demonstrate no definite evidence of acute infarction, hemorrhage, or mass lesion. The ventricles appear within normal limits in size and configuration for age without evidence of midline shift. The visualized paranasal sinuses are clear. 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 IMPRESSION: No definite acute abnormality as described above. Normal [facility] Hemogram/Diffon 07-01-2018 Abs Immature Grans 0.04 thou/cmm Normal 0.00-0.05 [facility] Comment on above: Performed By: #### C BCD1 #### [facility] [address] [place] [address] Abs. Baso 0.04 thou/cmm Normal 0.01-0.08 [facility] Comment on above: Performed By: #### C BCD1 #### [facility] [address] [place] [address] Abs. Bartholomew 0.33 thou/cmm Normal 0.27-0.70 [facility] Comment on above: Performed By: #### C BCD1 #### [facility] 1 [place] [address] Abs. Neut (ANC) 3.67 thou/cmm Normal 1.56-6.13 [facility] Comment on above: Performed By: #### C BCD1 #### [facility] [address] [place] [address] Basophils/100 WBC (Bld) 0.6 % Normal [facility] Comment on above: Performed By: #### C BCD1 #### [facility] 1 [place] [address] Eosinophils (Bld) [#/Vol] 0.06 thou/cmm Normal 0.00-0.31 [facility] Comment on above: Performed By: #### C BCD1 #### [facility] [address] [place] [address] Eosinophils/100 WBC (Bld) 0.9 % Normal [facility] Comment on above: Performed By: #### C BCD1 #### [facility] [address] [place] [address] Erythrocyte distribution width (RBC) [Ratio] 13.2 % Normal 11.7-14.4 [facility] Comment on above: Performed By: #### C BCD1 #### [facility] [address] [place] [address] Hematocrit (Bld) [Volume fraction] 41.2 % Normal 34.1-44.9 [facility] Comment on above: Performed By: #### C BCD1 #### [facility] [address] [place] [address] Hemoglobin (Bld) [Mass/Vol] 13.7 g/dL Normal 11.2-15.7 [facility] Comment on above: Performed By: #### C BCD1 #### [facility] 1 [place], [place] [address] Immature Grans 0.60 % Normal [facility] Comment on above: Performed By: #### C BCD1 #### [facility] 1 [place], [place] [address] Lymphocytes (Bld) [#/Vol] 2.66 thou/cmm Normal 1.18-3.74 [facility] Comment on above: Performed By: #### C BCD1 #### [facility] 1 [place], [place] [address] Lymphocytes/100 WBC (Bld) 39.1 % Normal [facility] Comment on above: Performed By: #### C BCD1 #### [facility] 1 [place], [place] [address] MCH (RBC) [Entitic mass] 30.4 pg Normal 25.6-32.2 [facility] Comment on above: Performed By: #### C BCD1 #### [facility] [address] [place] [address] MCHC (RBC) [Mass/Vol] 33.3 % Normal 31.6-34.8 [facility] Comment on above: Performed By: #### C BCD1 #### [facility] 1 [place], [place] [address] MCV (RBC) [Entitic vol] 91.4 fL Normal 79.4-94.8 [facility] Comment on above: Performed By: #### C BCD1 #### [facility] 1 [place], [place] [address] Monocytes/100 WBC (Bld) 4.9 % Normal [facility] Comment on above: Performed By: #### C BCD1 #### [facility] 1 [place], [place] [address] Platelet mean volume (Bld) [Entitic vol] 9.3 fL Low 9.4-12.3 [facility] Comment on above: Performed By: #### C BCD1 #### [facility] 1 [place], [place] [address] Platelets (Bld) [#/Vol] 294 thou/cmm Normal 182-369 [facility] Comment on above: Performed By: #### C BCD1 #### [facility] 1 [place], [place] [address] RBC (Bld) [#/Vol] 4.51 mil/cmm Normal 3.93-5.22 [facility] Comment on above: Performed By: #### C BCD1 #### [facility] [address] [place] [address] RDW SD 44.1 fl Normal 36.4-46.3 [facility] Comment on above: Performed By: #### C BCD1 #### [facility] [address] [place] [address] Seg Neutrophil 53.9 % Normal [facility] Comment on above: Performed By: #### C BCD1 #### [place] [address] WBC (Bld) [#/Vol] 6.80 thou/cmm Normal 3.98-10.04 [facility] Comment on above: Performed By: #### C BCD1 #### [place] [address] Magnesium Bloodon 07-01-2018 Magnesium [Mass/Vol] 2.2 mg/dL Normal 1.6-2.6 [facility] Comment on above: Performed By: #### M AG #### [place] [address] Phosphorus Bloodon 8 Phosphate [Mass/Vol] 3.8 mg/dL Normal 2.5-4.9 [facility] Comment on above: Performed By: #### P HOS #### [facility] 1 [place] [address] Urine HCG, Qual.on 8 Beta HCG ( test) Ql (U) Negative Normal Negative [facility] Comment on above: Performed By: #### H CGUR #### [place] [address] Specific [place], Ur 1.007 Normal 1.005-1.030 [facility] Comment on above: Performed By: #### H CGUR #### [place] [address] Lab Report: (P) Urinalysis, Completeon 06-21-2017 Bilirubin Ql (U) Negative Invalid Interpretation Code Negative [facility] Work Phone: [phone] NITRITE UR Negative Invalid Interpretation Code Negative [facility] Work Phone: [phone] OCCULT BLOOD-UR Negative Invalid Interpretation Code Negative [facility] Work Phone: [phone] specific gravity, urine 1.020 Invalid Interpretation Code 1.002-1.030 [facility] Work Phone: [phone] Urine, clarity Clear Invalid Interpretation Code Clear [facility] Work Phone: [phone] Urine, color Yellow Invalid Interpretation Code Yellow [facility] Work Phone: [phone] Urine, glucose presence Normal mg/dl Invalid Interpretation Code Normal [facility] Work Phone: [phone] Urine, ketones presence 50 High Negative B [facility] Work Phone: [phone] Urine, leukocyte esterase presence 25 High Negative [facility] Work Phone: [phone] Urine, pH 6.5 [pH] Invalid Interpretation Code 5.0 - 8.0 [facility] Work Phone: [phone] Urine, protein 15 mg/dL High Negative [facility] [place] [facility] Work Phone: [phone] UROBILI Normal mg/dl Invalid Interpretation Code Normal [facility] Work Phone: [phone] Lab Report: ,Urineo n 06-21-2017 HCG.beta subunit ( test) Ql (U) Negative Invalid Interpretation Code [facility] Work Phone: [phone] Lab Report: Urinalysis, Comp leteon 06-21-2017 Urine, bacteria in sediment 0 /[HPF] Invalid Interpretation Code None Seen [facility] Work Phone: [phone] Urine, epithelial cells in sediment 0-5 SEEN Invalid Interpretation Code 5-10 [facility] Work Phone: [phone] Urine, erythrocytes in sediment by volume 0 SEEN Invalid Interpretation Code 0-5 [facility] Work Phone: [phone] Urine, mucus presence in sediment 0 SEEN Invalid Interpretation Code [facility] Work Phone: [phone] WBC (Leukocytes) 0 SEEN Invalid Interpretation Code 0-5 [facility] Work Phone: [phone] Culture, urine Bacteria identified Cx Nom (U) Positive [facility] Work Phone: No Panel Information [facility] Vital Signs Date Time Vital Sign Value Performing Clinician Facility 11-12-2024 00:58-0400 Body height 159.99 cm Aki Kenyon MD Work Phone: [facility] 11-12-2024 00:58-0400 Body mass index (BMI) [Ratio] 32.7 kg/m2 Aki Kenyon MD Work Phone: [facility] 11-12-2024 00:58-0400 Body temperature 98.2 [degF] Aki Kenyon MD Work Phone: [facility] 11-12-2024 00:58-0400 Body weight 83.8 kg Aki Kenyon MD Work Phone: [facility] 11-12-2024 00:58-0400 Diastolic blood pressure 85 mm[Hg] Aki Kenyon MD Work Phone: [facility] 11-12-2024 00:58-0400 Heart rate 89 /min Aki Kenyon MD Work Phone: [facility] 11-12-2024 00:58-0400 Respiratory rate 18 /min Aki Kenyon MD Work Phone: [facility] 11-12-2024 00:58-0400 SaO2% (BldA) [Mass fraction] 100 % Aki Kenyon MD Work Phone: [facility] 11-12-2024 00:58-0400 Systolic blood pressure 133 mm[Hg] Aki Kenyon MD Work Phone: [facility] 09-21-2024 01:27-0500 Body temperature 98.7 [degF] Aki Kenyon MD Work Phone: [facility] 09-21-2024 01:27-0500 Diastolic blood pressure 82 mm[Hg] Aki Kenyon MD Work Phone: 7(846)465-333984 [place] [address] 09-21-2024 01:27-0500 Heart rate 78 /min Aki Kenyon MD Work Phone: 5(116)793-355284 [place] [address] 09-21-2024 01:27-0500 Respiratory rate 16 /min Aki Kenyon MD Work Phone: 1(026)693-648284 [place] [address] 09-21-2024 01:27-0500 SaO2% (BldA) [Mass fraction] 100 % Aki Kenyon MD Work Phone: 2(168)495-842684 [place] [address] 09-21-2024 01:27-0500 Systolic blood pressure 144 mm[Hg] Aki Kenyon MD Work Phone: 7(779)076-373258 [place] [address] 09-20-2024 20:52-0500 Body mass index (BMI) [Ratio] 34.1 kg/m2 Aki Kenyon MD Work Phone: 5(243)943-230958 [place] [address] 09-20-2024 20:52-0500 Body weight 87.4 kg Aki Kenyon MD Work Phone: 1(841)221-977058 [place] [address] 09-06-2024 15:21-0500 Body mass index (BMI) [Ratio] 34.9 kg/m2 Aki Kenyon MD Work Phone: 7(120)911-484284 [place] [address] 09-06-2024 15:21-0500 Body weight 89.47 kg Aki Kenyon MD Work Phone: 7(916)033-369584 [place] [address] 09-06-2024 15:21-0500 Diastolic blood pressure 84 mm[Hg] Aki Kenyon MD Work Phone: 6(844)529-718484 [place] [address] 09-06-2024 15:21-0500 Systolic blood pressure 118 mm[Hg] Aki Kenyon MD Work Phone: 0(469)714-670784 [place] [address] 08-10-2024 14:29-0500 Body temperature 97.6 [degF] Aki Kenyon MD Work Phone: [facility] 08-10-2024 14:29-0500 Diastolic blood pressure 86 mm[Hg] Aki Kenyon MD Work Phone: 8(885)138-388484 [place] [address] 08-10-2024 14:29-0500 Heart rate 98 /min Aki Kenyon MD Work Phone: 8(453)684-444184 [place] [address] 08-10-2024 14:29-0500 Respiratory rate 18 /min Aki Kenyon MD Work Phone: 1(471)894-338258 [place] [address] 08-10-2024 14:29-0500 SaO2% (BldA) [Mass fraction] 98 % Aki Kenyon MD Work Phone: 1(311)605-621184 [place] [address] 08-10-2024 14:29-0500 Systolic blood pressure 122 mm[Hg] Aki Kenyon MD Work Phone: 8(392)252-106658 [place] [address] 08-10-2024 12:14-0500 Body mass index (BMI) [Ratio] 36 kg/m2 Aki Kenyon MD Work Phone: 5(434)196-665784 [place] [address] 08-10-2024 12:14-0500 Body weight 92.27 kg Aki Kenyon MD Work Phone: 5(722)456-345258 [place] [address] 07-28-2024 18:28-0500 Body temperature 97.4 [degF] Aki Kenyon MD Work Phone: 5(906)361-159158 [place] [address] 07-28-2024 18:28-0500 Diastolic blood pressure 63 mm[Hg] Aki Kenyon MD Work Phone: 1(734)950-129858 [place] [address] 07-28-2024 18:28-0500 Heart rate 57 /min Aki Kenyon MD Work Phone: 0(851)362-031184 [place] [address] 07-28-2024 18:28-0500 Respiratory rate 15 /min Aki Kenyon MD Work Phone: 1(137)922-409884 [place] [address] 07-28-2024 18:28-0500 SaO2% (BldA) [Mass fraction] 100 % Aki Kenyon MD Work Phone: 2(402)075-423884 [place] [address] 07-28-2024 18:28-0500 Systolic blood pressure 106 mm[Hg] Aki Kenyon MD Work Phone: [facility] 07-28-2024 14:42-0500 Body mass index (BMI) [Ratio] 36.2 kg/m2 Aki Kenyon MD Work Phone: [facility] 07-28-2024 14:42-0500 Body weight 92.75 kg Aki Kenyon MD Work Phone: [facility] 11-02-2023 22:48-0400 Body temperature 98.1 [degF] Dr. Ishmael Vu Work Phone: [facility] 11-02-2023 22:48-0400 Diastolic blood pressure 69 mm[Hg] Dr. Ishmael Vu Work Phone: [facility] 11-02-2023 22:48-0400 Heart rate 67 /min Dr. Ishmael Vu Work Phone: [facility] 11-02-2023 22:48-0400 Respiratory rate 16 /min Dr. Ishmael Vu Work Phone: [facility] 11-02-2023 22:48-0400 SaO2% (BldA) [Mass fraction] 97 % Dr. Ishmael Vu Work Phone: [facility] 11-02-2023 22:48-0400 Systolic blood pressure 132 mm[Hg] Dr. Ishmael Vu Work Phone: [facility] 11-02-2023 20:22-0400 Body mass index (BMI) [Ratio] 35.1 kg/m2 Dr. Ishmael Vu Work Phone: [facility] 11-02-2023 20:22-0400 Body weight 89.[address] Ishmael Vu Work Phone: [facility] 11-02-2023 18:06-0400 Body height 160.[address] Ishmael Vu Work Phone: [facility] 09-28-2023 22:56-0500 Body temperature 97.6 [degF] Dr. Ishmael Vu Work Phone: [facility] 09-28-2023 22:56-0500 Diastolic blood pressure 68 mm[Hg] Dr. Ishmael Vu Work Phone: [facility] 09-28-2023 22:56-0500 Heart rate 83 /min Dr. Ishmael Vu Work Phone: [facility] 09-28-2023 22:56-0500 Respiratory rate 17 /min Dr. Ishmael Vu Work Phone: [facility] 09-28-2023 22:56-0500 SaO2% (BldA) [Mass fraction] 97 % Dr. Ishmael Vu Work Phone: [facility] 09-28-2023 22:56-0500 Systolic blood pressure 111 mm[Hg] Dr. Ishmael Vu Work Phone: [facility] 09-28-2023 20:09-0500 Body height 160.[address] Ishmael Vu Work Phone: [facility] 09-28-2023 20:09-0500 Body mass index (BMI) [Ratio] 34.7 kg/m2 Dr. Ishmael Vu Work Phone: [facility] 09-28-2023 20:09-0500 Body weight 88.[address] Ishmael Vu Work Phone: [facility] 09-27-2023 10:28-0500 Body mass index (BMI) [Ratio] 35 kg/m2 Dr. Ishmael Vu Work Phone: [facility] 09-27-2023 10:28-0500 Body weight 89.[address] Ishmael Vu Work Phone: [facility] 09-27-2023 10:28-0500 Diastolic blood pressure 82 mm[Hg] Dr. Ishmael Vu Work Phone: [facility] 09-27-2023 10:28-0500 Systolic blood pressure 126 mm[Hg] Dr. Ishmael Vu Work Phone: [facility] 09-22-2023 14:14-0500 Body mass index (BMI) [Ratio] 34.7 kg/m2 Dr. Ishmael Vu Work Phone: [facility] 09-22-2023 14:14-0500 Body temperature 97.9 [degF] Dr. Ishmael Vu Work Phone: [facility] 09-22-2023 14:14-0500 Body weight 89.[address] Ishmael Vu Work Phone: [facility] 09-22-2023 14:14-0500 Diastolic blood pressure 80 mm[Hg] Dr. Ishmael Vu Work Phone: [facility] 09-22-2023 14:14-0500 Heart rate 107 /min Dr. Ishmael Vu Work Phone: [facility] 09-22-2023 14:14-0500 Respiratory rate 16 /min Dr. Ishmael Vu Work Phone: [facility] 09-22-2023 14:14-0500 SaO2% (BldA) [Mass fraction] 99 % Dr. Ishmael Vu Work Phone: [facility] 09-22-2023 14:14-0500 Systolic blood pressure 118 mm[Hg] Dr. Ishmael Vu Work Phone: [facility] 02-23-2023 10:48-0400 Body height 160 cm Toni Valljeo MD Work Phone: [facility] [employer] 02-23-2023 10:48-0400 Body mass index (BMI) [Ratio] 34.01 kg/m2 Toin Vallejo MD Work Phone: [facility] 02-23-2023 10:48-0400 Body weight 87.09 kg Toni Vallejo MD Work Phone: [facility] 02-02-2023 08:38-0400 Body height 160.[address] Ishmael Vu Work Phone: [facility] 02-02-2023 08:38-0400 Body mass index (BMI) [Ratio] 37.2 kg/m2 Dr. Ihsmael Vu Work Phone: [facility] 02-02-2023 08:38-0400 Body temperature 97.1 [degF] Dr. Ishmael Vu Work Phone: [facility] 02-02-2023 08:38-0400 Body weight 95.[address] Ishmael Vu Work Phone: [facility] 02-02-2023 08:38-0400 Diastolic blood pressure 82 mm[Hg] Dr. Ishmael Vu Work Phone: [facility] 02-02-2023 08:38-0400 Heart rate 88 /min Dr. Ishmael Vu Work Phone: [facility] 02-02-2023 08:38-0400 Respiratory rate 18 /min Dr. Ishmael Vu Work Phone: [facility] 02-02-2023 08:38-0400 SaO2% (BldA) [Mass fraction] 99 % Dr. Ishmael Vu Work Phone: [facility] 02-02-2023 08:38-0400 Systolic blood pressure 108 mm[Hg] Dr. Ishmael Vu Work Phone: [facility] 01-20-2023 10:00-0400 Body height 160 cm Benny Ryan MD Work Phone: [facility] 01-20-2023 10:00-0400 Body weight 92.99 kg Benny Ryan MD Work Phone: [facility] 01-20-2023 10:00-0400 Diastolic blood pressure 82 mm[Hg] Benny Ryan MD Work Phone: [facility] 01-20-2023 10:00-0400 Heart rate 64 /min Benny Ryan MD Work Phone: [facility] 01-20-2023 10:00-0400 Respiratory rate 18 /min Benny Ryan MD Work Phone: [facility] 01-20-2023 10:00-0400 Systolic blood pressure 120 mm[Hg] Benny Ryan MD Work Phone: [facility] 12-22-2022 11:10-0400 SaO2% (BldA) [Mass fraction] 100 % Emmanuel Nitz [employer] INTERN[employer] Work Phone: [facility] 12-22-2022 11:00-0400 Diastolic blood pressure 77 mm[Hg] Emmanuel Nitz [employer] INTERN[employer]ENT Work Phone: [facility] 12-22-2022 11:00-0400 Systolic blood pressure 115 mm[Hg] Emmanuel Nitz [employer] INTERN[employer]ENT Work Phone: [facility] 12-22-2022 10:30-0400 Respiratory rate 16 /min Emmanuel Nitz GRAPHIC DESIGN INTERN.SENIOR COMMISSARY AGENT Work Phone: [facility] 12-22-2022 09:11-0400 Body height 160 cm Emmanuel Nitz GRAPHIC DESIGN INTERN.SENIOR COMMISSARY AGENT Work Phone: [facility] 12-22-2022 09:11-0400 Body temperature 97.5 [degF] Emmanuel Nitz GRAPHIC DESIGN INTERN.SENIOR COMMISSARY AGENT Work Phone: [facility] 12-22-2022 09:11-0400 Body weight 93.89 kg Emmanuel Nitz GRAPHIC DESIGN INTERN.SENIOR COMMISSARY AGENT Work Phone: [facility] 12-22-2022 09:11-0400 Heart rate 63 /min Emmanuel Velazco SENIOR COMMISSARY AGENT Work Phone: [facility] 12-01-2022 09:00-0400 Body height 160.[address] Ishmael Vu Work Phone: [facility] 12-01-2022 08:52-0400 Body mass index (BMI) [Ratio] 36.3 kg/m2 Dr. Ishmael Vu Work Phone: [facility] 12-01-2022 08:52-0400 Body weight 93.[address] Ishmael Vu Work Phone: [facility] 12-01-2022 08:52-0400 Diastolic blood pressure 68 mm[Hg] Dr. Ishmael Vu Work Phone: [facility] 12-01-2022 08:52-0400 Systolic blood pressure 112 mm[Hg] Dr. Ishmale Vu Work Phone: [facility] 11-23-2022 10:13-0400 Body mass index (BMI) [Ratio] 35.9 kg/m2 Dr. Ishmael Vu Work Phone: [facility] 11-23-2022 10:13-0400 Body temperature 98.3 [degF] Dr. Ishmael Vu Work Phone: [facility] 11-23-2022 10:13-0400 Body weight 92.[address] Ishmael Vu Work Phone: [facility] 11-23-2022 10:13-0400 Diastolic blood pressure 72 mm[Hg] Dr. Ishmael Vu Work Phone: [facility] 11-23-2022 10:13-0400 Heart rate 68 /min Dr. Ishmael Vu Work Phone: [facility] 11-23-2022 10:13-0400 Respiratory rate 16 /min Dr. Ihsmael Vu Work Phone: [facility] 11-23-2022 10:13-0400 SaO2% (BldA) [Mass fraction] 99 % Dr. Ishmael Vu Work Phone: [facility] 11-23-2022 10:13-0400 Systolic blood pressure 120 mm[Hg] Dr. Ishmael Vu Work Phone: [facility] 10-06-2022 09:57-0400 Body height 160 cm Toni Vallejo MD Work Phone: [facility] 10-06-2022 09:57-0400 Body mass index (BMI) [Ratio] 34.01 kg/m2 Toni Vallejo MD Work Phone: [facility] 10-06-2022 09:57-0400 Body weight 87.09 kg Toni Vallejo MD Work Phone: [facility] 09-22-2022 12:55-0500 Body temperature 97.7 [degF] Jason Bernardo MD Work Phone: [facility] 09-22-2022 12:55-0500 Diastolic blood pressure 76 mm[Hg] Jason Bernardo MD Work Phone: [facility] 09-22-2022 12:55-0500 Heart rate 88 /min Jason Bernardo MD Work Phone: [facility] 09-22-2022 12:55-0500 Respiratory rate 16 /min Jason Bernardo MD Work Phone: [facility] 09-22-2022 12:55-0500 SaO2% (BldA) [Mass fraction] 100 % Jason Bernardo MD Work Phone: [facility] 09-22-2022 12:55-0500 Systolic blood pressure 115 mm[Hg] Jason Bernardo MD Work Phone: [facility] 09-14-2022 20:00-0500 Diastolic blood pressure 61 mm[Hg] Toni Vallejo MD Work Phone: [facility] 09-14-2022 20:00-0500 Heart rate 70 /min Toni Vallejo MD Work Phone: [facility] 09-14-2022 20:00-0500 SaO2% (BldA) [Mass fraction] 98 % Toni Vallejo MD Work Phone: [facility] 09-14-2022 20:00-0500 Systolic blood pressure 111 mm[Hg] Toni Vallejo MD Work Phone: [facility] 09-14-2022 19:30-0500 Respiratory rate 13 /min Toni Vallejo MD Work Phone: [facility] 09-14-2022 18:37-0500 Body temperature 97.2 [degF] Toni Vallejo MD Work Phone: [facility] 09-14-2022 13:57-0500 Body height 160 cm Toni Vallejo MD Work Phone: [facility] 09-14-2022 13:57-0500 Body mass index (BMI) [Ratio] 34.01 kg/m2 Toni Vallejo MD Work Phone: [facility] 09-14-2022 13:57-0500 Body weight 87.09 kg Toni Vallejo MD Work Phone: [facility] 08-25-2022 12:48-0500 Body height 160 cm Taz Mackenzie MD Work Phone: [facility] 08-25-2022 12:48-0500 Body weight 77.11 kg Taz Mackenzie MD Work Phone: [facility] 08-25-2022 12:48-0500 Diastolic blood pressure 84 mm[Hg] Taz Mackenzie MD Work Phone: [facility] 08-25-2022 12:48-0500 Heart rate 89 /min Taz Mackenzie MD Work Phone: [facility] 08-25-2022 12:48-0500 Systolic blood pressure 124 mm[Hg] Taz Mackenzie MD Work Phone: [facility] 08-11-2022 11:29-0500 Body height 160.[address] Ishmael Vu Work Phone: [facility] 08-11-2022 11:29-0500 Body mass index (BMI) [Ratio] 30.1 kg/m2 Dr. Ishmael Vu Work Phone: [facility] 08-11-2022 11:29-0500 Body temperature 97.5 [degF] Dr. Ishmael Vu Work Phone: [facility] 08-11-2022 11:29-0500 Body weight 77.[address] Ishmael Vu Work Phone: [facility] 08-11-2022 11:29-0500 Diastolic blood pressure 76 mm[Hg] Dr. Ishmael Vu Work Phone: [facility] 08-11-2022 11:29-0500 Heart rate 80 /min Dr. Ishmael Vu Work Phone: [facility] 08-11-2022 11:29-0500 Respiratory rate 16 /min Dr. Ishmael Vu Work Phone: [facility] 08-11-2022 11:29-0500 SaO2% (BldA) [Mass fraction] 98 % Dr. Ishmael Vu Work Phone: [facility] 08-11-2022 11:29-0500 Systolic blood pressure 116 mm[Hg] Dr. Ishmael Vu Work Phone: [facility] 08-05-2022 09:02-0500 Body mass index (BMI) [Ratio] 32.8 kg/m2 Dr. Ishmael Vu Work Phone: [facility] 08-05-2022 09:02-0500 Body temperature 98.5 [degF] Dr. Ishmael Vu Work Phone: [facility] 08-05-2022 09:02-0500 Body weight 83.[address] Ishmael Vu Work Phone: [facility] 08-05-2022 09:02-0500 Diastolic blood pressure 88 mm[Hg] Dr. Ishmael Vu Work Phone: [facility] 08-05-2022 09:02-0500 Heart rate 89 /min Dr. Ishmael Vu Work Phone: [facility] 08-05-2022 09:02-0500 Respiratory rate 14 /min Dr. Ishmael Vu Work Phone: [facility] 08-05-2022 09:02-0500 SaO2% (BldA) [Mass fraction] 98 % Dr. Ishmael Vu Work Phone: [facility] 08-05-2022 09:02-0500 Systolic blood pressure 126 mm[Hg] Dr. Ishmael Vu Work Phone: [facility] 07-28-2022 10:00-0500 Body height 167.6 cm Toni Vallejo MD Work Phone: [facility] 07-28-2022 10:00-0500 Body mass index (BMI) [Ratio] 28.57 kg/m2 Toni Vallejo MD Work Phone: [facility] 07-28-2022 10:00-0500 Body weight 80.29 kg Toni Vallejo MD Work Phone: [facility] 06-07-2022 09:02-0500 Body height 160.[address] Ishmael Vu Work Phone: [facility] Work Phone: 06-07-2022 09:02-0500 Body mass index (BMI) [Ratio] 31.7 kg/m2 Dr. Ishmael Vu Work Phone: [facility] 06-07-2022 09:02-0500 Body temperature 97.7 [degF] Dr. Ishmael Vu Work Phone: [facility] 06-07-2022 09:02-0500 Body weight 81.[address] Ishmael Vu Work Phone: [facility] 06-07-2022 09:02-0500 Diastolic blood pressure 78 mm[Hg] Dr. Ishmael Vu Work Phone: [facility] 06-07-2022 09:02-0500 Heart rate 88 /min Dr. Ishmael Vu Work Phone: [facility] 06-07-2022 09:02-0500 Respiratory rate 16 /min Dr. Ishmael Vu Work Phone: [facility] 06-07-2022 09:02-0500 SaO2% (BldA) [Mass fraction] 99 % Dr. Ishmael Vu Work Phone: [facility] 06-07-2022 09:02-0500 Systolic blood pressure 124 mm[Hg] Dr. Ishmael Vu Work Phone: [facility] 05-31-2022 12:45-0500 Body height 160.[address] Ishmael Vu Work Phone: [facility] Work Phone: 05-31-2022 12:45-0500 Body mass index (BMI) [Ratio] 31.9 kg/m2 Dr. Ishmael Vu Work Phone: [facility] 05-31-2022 12:45-0500 Body weight 81.[address] Ishmael Vu Work Phone: [facility] 05-31-2022 12:45-0500 Diastolic blood pressure 82 mm[Hg] Dr. Ishmael Vu Work Phone: [facility] 05-31-2022 12:45-0500 Systolic blood pressure 118 mm[Hg] Dr. Ishmael Vu Work Phone: [facility] 05-18-2022 13:29-0400 Body mass index (BMI) [Ratio] 31.4 kg/m2 Dr. Ishmael Vu Work Phone: [facility] 05-18-2022 13:29-0400 Body weight 80.[address] Ishmael Vu Work Phone: [facility] 05-18-2022 13:29-0400 Diastolic blood pressure 74 mm[Hg] Dr. Ishmael Vu Work Phone: [facility] 05-18-2022 13:29-0400 Systolic blood pressure 108 mm[Hg] Dr. Ishmael Vu Work Phone: [facility] 04-27-2022 21:46-0400 Body temperature 98.1 [degF] Dr. Ishmael Vu Work Phone: [facility] 04-27-2022 21:46-0400 Diastolic blood pressure 6 mm[Hg] Dr. Ishmael Vu Work Phone: [facility] 04-27-2022 21:46-0400 Heart rate 81 /min Dr. Ishmael Vu Work Phone: [facility] 04-27-2022 21:46-0400 Respiratory rate 16 /min Dr. Ishmael Vu Work Phone: [facility] 04-27-2022 21:46-0400 SaO2% (BldA) [Mass fraction] 99 % Dr. Ishmael Vu Work Phone: [facility] 04-27-2022 21:46-0400 Systolic blood pressure 109 mm[Hg] Dr. Ishmael Vu Work Phone: [facility] 04-27-2022 14:54-0400 Body height 160.[address] Ishmael Vu Work Phone: [facility] Work Phone: 04-27-2022 14:54-0400 Body mass index (BMI) [Ratio] 30.7 kg/m2 Dr. Ishmael Vu Work Phone: [facility] 04-27-2022 14:54-0400 Body weight 78.[address] Ishmael Vu Work Phone: [facility] 03-12-2022 16:25-0400 Body height 160 cm Yahaira Biats DO Work Phone: [facility] 03-12-2022 16:25-0400 Body weight 79.56 kg Yahaira Biats DO Work Phone: [facility] 03-12-2022 16:25-0400 Diastolic blood pressure 80 mm[Hg] Yahaira Biats DO Work Phone: [facility] 03-12-2022 16:25-0400 Systolic blood pressure 121 mm[Hg] Yahaira Biats DO Work Phone: [facility] 02-01-2022 15:05-0400 Body height 160.[address] Ishmael Vu Work Phone: [facility] Work Phone: 02-01-2022 15:05-0400 Body mass index (BMI) [Ratio] 31.7 kg/m2 Dr. Ishmael Vu Work Phone: [facility] Work Phone: 02-01-2022 15:05-0400 Body temperature 98.3 [degF] Dr. Ishmael Vu Work Phone: [facility] Work Phone: 02-01-2022 15:05-0400 Body weight 81.[address] Ishmael Vu Work Phone: [facility] Work Phone: 02-01-2022 15:05-0400 Diastolic blood pressure 64 mm[Hg] Dr. Ishmael Vu Work Phone: [facility] Work Phone: 02-01-2022 15:05-0400 Heart rate 85 /min Dr. Ishmael Vu Work Phone: [facility] Work Phone: 02-01-2022 15:05-0400 Respiratory rate 18 /min Dr. Ishmael Vu Work Phone: [facility] Work Phone: 02-01-2022 15:05-0400 SaO2% (BldA) [Mass fraction] 98 % Dr. Ishmael Vu Work Phone: [facility] Work Phone: 02-01-2022 15:05-0400 Systolic blood pressure 116 mm[Hg] Dr. Ishmael Vu Work Phone: [facility] Work Phone: 12-30-2021 16:06-0400 Body mass index (BMI) [Ratio] 31.1 kg/m2 Dr. Ishmael Vu Work Phone: [facility] Work Phone: 12-30-2021 16:06-0400 Body temperature 98.2 [degF] Dr. Ishmael Vu Work Phone: [facility] Work Phone: 12-30-2021 16:06-0400 Body weight 79.[address] Ishmael Vu Work Phone: [facility] Work Phone: 12-30-2021 16:06-0400 Diastolic blood pressure 82 mm[Hg] Dr. Ishmael Vu Work Phone: [facility] Work Phone: 12-30-2021 16:06-0400 Heart rate 72 /min Dr. Ishmael Vu Work Phone: [facility] Work Phone: 12-30-2021 16:06-0400 Respiratory rate 14 /min Dr. Ishmael Vu Work Phone: [facility] Work Phone: 12-30-2021 16:06-0400 SaO2% (BldA) [Mass fraction] 99 % Dr. Ishmael Vu Work Phone: [facility] Work Phone: 12-30-2021 16:06-0400 Systolic blood pressure 114 mm[Hg] Dr. Ishmael Vu Work Phone: [facility] Work Phone: 11-20-2021 21:30-0400 Diastolic blood pressure 58 mm[Hg] JOSELYN REICHFIELD DO [facility] [place] 11-20-2021 21:30-0400 Heart rate 82 /min JOSELYN REICHFIELD DO [facility] 11-20-2021 21:30-0400 Mean blood pressure 75 mm[Hg] JOSELYN REICHFIELD DO [facility] 11-20-2021 21:30-0400 Respiratory rate 16 /min JOSELYN REICHFIELD DO [facility] 11-20-2021 21:30-0400 Systolic blood pressure 110 mm[Hg] JOSELYN REICHFIELD DO [facility] 11-20-2021 20:30-0400 Diastolic blood pressure 53 mm[Hg] JOSELYN REICHFIELD DO [facility] 11-20-2021 20:30-0400 Heart rate 84 /min JOSELYN REICHFIELD DO [facility] 11-20-2021 20:30-0400 Mean blood pressure 67 mm[Hg] JOSELYN REICHFIELD DO [facility] 11-20-2021 20:30-0400 Respiratory rate 16 /min JOSELYN REICHFIELD DO [facility] 11-20-2021 20:30-0400 Systolic blood pressure 94 mm[Hg] JOSELYN REICHFIELD DO [facility] 11-20-2021 18:29-0400 Diastolic blood pressure 87 mm[Hg] JOSELYN REICHFIELD DO [facility] 11-20-2021 18:29-0400 Heart rate 101 /min JOSELYN REICHFIELD DO [facility] 11-20-2021 18:29-0400 Respiratory rate 15 /min JOSELYN REICHFIELD DO [facility] 11-20-2021 18:29-0400 Systolic blood pressure 119 mm[Hg] JOSELYN REICHFIELD DO [facility] 11-20-2021 17:46-0400 Body temperature 99.14 [degF] JOSELYN JO DO [facility] 11-20-2021 17:46-0400 Body weight 77.1 [facility] 11-18-2021 14:52-0400 Body mass index (BMI) [Ratio] 32.8 kg/m2 Dr. Ishmael Vu Work Phone: [facility] Work Phone: 11-18-2021 14:52-0400 Body weight 83.[address] Ishmael Vu Work Phone: [facility] Work Phone: 10-28-2021 15:37-0400 Body mass index (BMI) [Ratio] 32.2 kg/m2 Dr. Ishmael Vu Work Phone: [facility] Work Phone: 10-28-2021 15:37-0400 Body temperature 98.1 [degF] Dr. Ishmael Vu Work Phone: [facility] Work Phone: 10-28-2021 15:37-0400 Body weight 82.[address] Ishmael Vu Work Phone: [facility] Work Phone: 10-28-2021 15:37-0400 Diastolic blood pressure 86 mm[Hg] Dr. Ishmael Vu Work Phone: [facility] Work Phone: 10-28-2021 15:37-0400 Heart rate 84 /min Dr. Ishmael Vu Work Phone: [facility] Work Phone: 10-28-2021 15:37-0400 Respiratory rate 16 /min Dr. Ishmael Vu Work Phone: [facility] Work Phone: 10-28-2021 15:37-0400 SaO2% (BldA) [Mass fraction] 99 % Dr. Ishmael Vu Work Phone: [facility] Work Phone: 10-28-2021 15:37-0400 Systolic blood pressure 114 mm[Hg] Dr. Ishmael Vu Work Phone: [facility] Work Phone: 10-28-2021 15:37-0400 Body height 160.[address] Ishmael Vu Work Phone: [facility] Work Phone: 10-28-2021 15:37-0400 Body mass index (BMI) [Ratio] 32.2 kg/m2 Dr. Ishmael Vu Work Phone: [facility] Work Phone: 10-28-2021 15:37-0400 Body temperature 98.1 [degF] Dr. Ishmael Vu Work Phone: [facility] Work Phone: 10-28-2021 15:37-0400 Body weight 82.[address] Ishmael Vu Work Phone: [facility] Work Phone: 10-28-2021 15:37-0400 Diastolic blood pressure 86 mm[Hg] Dr. Ishmael Vu Work Phone: [facility] Work Phone: 10-28-2021 15:37-0400 Heart rate 84 /min Dr. Ishmael Vu Work Phone: [facility] Work Phone: 10-28-2021 15:37-0400 Respiratory rate 16 /min Dr. Ishmael Vu Work Phone: [facility] Work Phone: 10-28-2021 15:37-0400 SaO2% (BldA) [Mass fraction] 99 % Dr. Ishmael Vu Work Phone: [facility] Work Phone: 10-28-2021 15:37-0400 Systolic blood pressure 114 mm[Hg] Dr. Ishmael Vu Work Phone: [facility] Work Phone: 08-05-2021 15:42-0500 Body mass index (BMI) [Ratio] 32.1 kg/m2 Dr. Ishmael Vu Work Phone: [facility] Work Phone: 08-05-2021 15:42-0500 Body temperature 98.2 [degF] Dr. Ishmael Vu Work Phone: [facility] Work Phone: 08-05-2021 15:42-0500 Body weight 82.[address] Ishmael Vu Work Phone: [facility] Work Phone: 08-05-2021 15:42-0500 Diastolic blood pressure 72 mm[Hg] Dr. Ishmael Vu Work Phone: [facility] Work Phone: 08-05-2021 15:42-0500 Heart rate 84 /min Dr. Ishmael Vu Work Phone: [facility] Work Phone: 08-05-2021 15:42-0500 Respiratory rate 14 /min Dr. Ishmael Vu Work Phone: [facility] Work Phone: 08-05-2021 15:42-0500 SaO2% (BldA) [Mass fraction] 99 % Dr. Ishmael Vu Work Phone: [facility] Work Phone: 08-05-2021 15:42-0500 Systolic blood pressure 124 mm[Hg] Dr. Ishmael Vu Work Phone: [facility] Work Phone: 11-10-2020 13:04-0400 Diastolic blood pressure 65 mm[Hg] Halie Horn MD Work Phone: [facility] Work Phone: 11-10-2020 13:04-0400 Heart rate 80 /min Halie Horn MD Work Phone: [facility] Work Phone: 11-10-2020 13:04-0400 SaO2% (BldA) [Mass fraction] 100 % Halie Horn MD Work Phone: [facility] Work Phone: 11-10-2020 13:04-0400 Systolic blood pressure 112 mm[Hg] Halie Horn MD Work Phone: [facility] Work Phone: 11-10-2020 12:40-0400 Respiratory rate 14 /min Halie Horn MD Work Phone: [facility] Work Phone: 11-10-2020 10:21-0400 Body height 160 cm Halie Horn MD Work Phone: [facility] Work Phone: 11-10-2020 10:21-0400 Body mass index (BMI) [Ratio] 34.9 kg/m2 Halie Horn MD Work Phone: [facility] Work Phone: 11-10-2020 10:21-0400 Body temperature 97.7 [degF] Halie Horn MD Work Phone: [facility] Work Phone: 11-10-2020 10:21-0400 Body weight 89.36 kg Halie Horn MD Work Phone: [facility] Work Phone: Encounters Encounter Date Encounter Type Care Provider Facility Start: 11-21-2024 Encounter for gynecological examination (general) (routine) with abnormal findings Abbey Noble [facility] Start: 11-21-2024 End: 11-21-2024 ambulatory Chika Oanh VS Facility:[facility] Start: 11-21-2024 End: 11-21-[address] [facility] Facility:[facility] Start: 11-12-2024 End: 11-12-2024 Emergency department patient visit Aki Kenyon MD Work Phone: -Emergency Department Work Phone: Start: 10-30-2024 ambulatory Chika Oanh VS Faci lity:[facility] Start: 09-20-2024 End: 09-21-2024 Emergency department patient visit Dr. Levi Chapa DO -Emergency Department Work Phone: Start: 09-12-[address] [facility] Faci lity:[facility] Start: 09-06-2024 End: 09-06-2024 Patient encounter procedure Abbey Noble [facility] -[facility] [place] Work Phone: Start: 09-06-2024 End: 09-06-[address] [facility] Facility:[facility] Start: 08-22-2024 End: 08-22-2024 Patient encounter procedure Chika Oanh DO -Otilia, Payal Grier Start: 08-22-2024 End: 08-22-2024 ambulatory Chika Oanh VS Facility:[facility] Start: 08-10-2024 End: 08-10-2024 Emergency department patient visit Dr. Babak Whitaker MD -Emergency Department Work Phone: Start: 07-28-2024 End: 07-28-2024 Emergency department patient visit Dr. Aki Kenyon MD -Emergency Department Work Phone: Start: 06-13-2024 ambulatory Ishmael Vu Facili ty:[facility] Start: 05-02-2024 ambulatory Ishmael Vu Facili ty:[facility] Start: 04-30-2024 End: 04-30-2024 Emergency department patient visit Kevin Mullins Facility:[facility] Start: 04-24-2024 End: 04-24-2024 Emergency department patient visit Ishmael Vu Facility:[facility] Start: 02-21-2024 End: 02-21-2024 ambulatory Ishmael Vu Facility:[facility] Start: 01-27-2024 End: 01-27-2024 ambulatory [facility] Start: 01-27-2024 End: 01-27-2024 Patient encounter procedure Juju Ferguson RN [facility] Clinical Communication Start: 01-17-2024 End: 01-17-2024 [facility] Facility:[facility] Start: 12-27-2023 ambulatory Ishmael Gundersoni ty:[facility] Start: 12-08-2023 End: 12-08-2023 ambulatory Ishmael Vu Facility:[facility] Start: 11-21-2023 Telephone encounter Toni longo MD Work Phone: [facility] Clinical Communication Comment on above: Letter for School/[facility] Start: 11-02-2023 End: 11-02-2023 Emergency department patient visit Dr. Ishmael Vu Work Phone: [facility]-Emergency Department Work Phone: Start: 10-10-2023 End: 10-10-2023 ambulatory TONI VALLEJO [facility] Start: 10-10-2023 End: 10-10-2023 Office outpatient visit 15 minutes Toni Vallejo MD Work Phone: [facility] Comment on above: Lumbar pain (Primary Dx) Start: 10-06-2023 End: 10-07-2023 ambulatory FIDE LEWIS [facility] Start: 10-06-2023 End: 10-06-2023 Subsequent hospital visit by physician Fide Lewis NP Work Phone: [facility] MRI Comment on above: Lumbar pain; Lumbar radiculopathy; Urinary incontinence, unspecified type Start: 10-04-2023 End: 10-04-2023 ambulatory ISHMAEL VU [facility] Start: 10-04-2023 End: 10-04-2023 Office outpatient visit 15 minutes Fide Lewis NP Work Phone: [facility] Comment on above: Lumbar pain (Primary Dx); Lumbar radiculopathy; Urinary incontinence, unspecified type Start: 09-30-2023 ambulatory Aida Macias RN [facility] Cl inical Communication Start: 09-30-2023 Patient encounter [facility] Start: 09-28-2023 End: 09-28-2023 Emergency department patient visit Dr. Ishmael Vu Work Phone: [facility]-Emergency Department Work Phone: Start: 09-27-2023 End: 09-27-[address] Ishmael Vu Work Phone: [facility] [place] Work Phone: Start: 09-22-2023 End: 09-22-[address] Ishmael Vu Work Phone: [facility] Work Phone: Start: 07-27-2023 End: 07-27-2023 ambulatory ISHMAEL VU Facility:[facility] Start: 03-11-2023 End: 03-11-[address] Ishmael Vu Work Phone: [facility] Work Phone: Start: 03-11-2023 End: 03-11-[address] Ishmael Vu Work Phone: [facility] Work Phone: Start: 02-23-2023 End: 02-23-2023 ambulatory ISHMAEL VU [facility] Start: 02-23-2023 End: 02-23-2023 Office outpatient visit 25 minutes Toni Vallejo MD Work Phone: [facility] Comment on above: Lumbar pain (Primary Dx) Start: 02-16-2023 End: 02-16-[address] Ishmael Vu Work Phone: [facility] Work Phone: Start: 02-16-2023 End: 02-16-[address] Ishmael Vu Work Phone: [facility] [place], [facility] Work Phone: Start: 02-07-2023 End: 02-10-2023 Evaluation and management of inpatient ISHMAEL VU Facility:[facility] Start: 02-03-2023 End: 02-03-[address] Ishmael Vu Work Phone: [facility] Work Phone: Start: 02-03-2023 End: 02-03-[address] Ishmael Vu Work Phone: [facility]-Laboratory, Specimen Work Phone: Start: 02-02-2023 End: 02-02-[address] Ishmael Vu Work Phone: [facility] Work Phone: Start: 02-02-2023 End: 02-02-[address] Ishmael Vu Work Phone: [facility] Work Phone: Start: 01-27-2023 Telephone encounter Benny Ryan MD Work Phone: Neurology Comment on above: VEEG testing Start: 01-21-2023 Telephone encounter Benny Ryan MD Work Phone: Neurology Comment on above: Other (Is EMU admit necessary if muscle spasms are caused by Tramadol.?) Start: 01-20-2023 End: 01-20-2023 ambulatory ISHMAEL VU Facility:[facility] Start: 01-20-2023 End: 01-20-2023 Patient encounter procedure Benny Ryan MD Work Phone: Neurology Epilepsy Comment on above: Generalized epilepsy (HCC) (Primary Dx); Seizure-like activity (HCC) Start: 01-18-2023 End: 01-18-[address] Ishmael Vu Work Phone: [facility] Work Phone: Start: 01-18-2023 End: 01-18-[address] [facility] Work [facility]: Start: 01-10-2023 Telephone encounter Fide cardoso NP Work Phone: [facility] Comment on above: Fast-track injection Start: 01-05-2023 End: 01-06-2023 ambulatory [facility] Start: 01-05-2023 End: 01-05-2023 Subsequent hospital visit by physician Toni Vallejo MD Work Phone: [facility] MRI Comment on above: Lumbar radiculopathy Start: 01-04-2023 End: 01-04-[address] Ishmael Vu Work Phone: [facility] Work Phone: Start: 01-04-2023 End: 01-04-[address] [facility] Start: 01-03-2023 End: 01-03-[address] Ishmael Vu Work Phone: [facility] Work Phone: Start: 01-03-2023 End: 01-03-[address] Ishmael Vu Work Phone: [facility] Start: 01-03-2023 End: 01-03-[address] Ishmael Vu Work Phone: [facility] Gastro[facility]ology Start: 12-24-2022 E-mail encounter fro m caregiver Taz Sky MD Work Phone: [facility] Start: 12-24-2022 Patient encounter procedure Taz Sky MD Work Phone: Ophthalmology Comment on above: Appointment Schedule d Start: 12-24-2022 End: 12-24-2022 ambulatory Taz Sky MD Work Phone: Ophthalmology Comment on above: Elevation of optic d isc, bilateral (Primary Dx) Start: 12-24-2022 End: 12-24-2022 Telemedicine consultation with patient Taz Sky MD Work Phone: [facility] Start: 12-22-2022 ambulatory ISHMAEL VU Faci lity:[facility] Start: 12-22-2022 End: 12-22-2022 Subsequent hospital visit by physician Emmanuel Velazco APRN.[employer] Work Phone: [facility] INTERVENTIONAL RADIOLOGY Comment on above: IIH (idiopathic intr acranial hypertension) [G93.2] Start: 12-16-2022 End: 12-16-2022 ambulatory ISHMAEL VU Facility:[facility] Start: 12-13-2022 Telephone encounter Toni longo MD Work Phone: [facility] Comment on above: Back Pain Start: 12-02-2022 End: 12-02-[address] Ishmael Vu Work Phone: [facility] Work Phone: Start: 12-02-2022 End: 12-02-[address] Ishmael Vu Work Phone: [facility] Work Phone: Start: 12-02-[address] Iliana Vu Work Phone: [facility] Start: 12-01-2022 End: 12-01-[address] Ishmael Vu Work Phone: [facility] [place] Start: 11-29-2022 End: 11-29-2022 ambulatory ISHMAEL VU Facility:[facility] Start: 11-29-2022 End: 11-29-2022 Patient encounter procedure Taz Sky MD Work Phone: Ophthalmology Comment on above: Elevation of optic d isc, bilateral (Primary Dx); Other localized visual field defect, bilateral; IIH (idiopathic intracranial hypertension) Start: 11-24-2022 End: 11-24-2022 Emergency department patient visit ISHMAEL VU Facility:[facility] Start: 11-23-2022 End: 11-23-[address] Ishmael Vu Work Phone: [facility] Internal Medicine Start: 11-22-2022 ambulatory Facility:[facility] Start: 10-06-2022 End: 10-06-2022 Postop follow up visit related to original px Toni Vallejo MD Work Phone: [facility] Comment on above: Lumbar radiculopathy (Primary Dx); Lumbar pain; S/P spinal surgery Start: 09-24-2022 Telephone encounter Fide cardoso NP Work Phone: [facility] Comment on above: Follow Up Call Start: 09-23-2022 Telephone encounter Toni longo MD Work Phone: [facility] Comment on above: Nurse Navigation (tr iage) Start: 09-22-2022 End: 09-22-2022 Emergency department patient visit Jason Bernardo MD Work Phone: [facility] ED Comment on above: Postop check (Primar y Dx) Start: 09-15-2022 Telephone encounter Toni longo MD Work Phone: [facility] Comment on above: Nurse triage Start: 09-14-2022 End: 09-14-2022 Subsequent hospital visit by physician [facility] Comment on above: Arrived Start: 09-14-2022 End: 09-14-2022 Subsequent hospital visit by physician Toni Vallejo MD Work Phone: [facility] OR Comment on above: Lumbar pain (Primary Dx) Start: 09-08-2022 ambulatory TAZ MACKENZIE Facility :[facility] Start: 09-08-2022 End: 09-08-2022 Subsequent hospital visit by physician [facility] (1.5t) [facility] Comment on above: Papilledema [H47.10] Start: 08-27-2022 End: 08-27-2022 ambulatory Taz Mackenzie MD Work Phone: [facility] Start: 08-27-2022 E-mail encounter fro m caregiver Taz Mackenzie MD Work Phone: [facility] Start: 08-25-2022 End: 08-25-2022 ambulatory ISHMAEL VU Facility:[facility] Start: 08-25-2022 Telephone encounter Toni longo MD Work Phone: [facility] [place] Comment on above: Letter for School/Wo rk Start: 08-25-2022 End: 08-25-2022 Patient encounter procedure Taz Mackenzie MD Work Phone: [facility] Comment on above: Papilledema (Primary Dx); Optic neuritis; Idiopathic intracranial hypertension; Nonintractable epilepsy without status epilepticus, unspecified epilepsy type (HCC) Start: 08-11-2022 End: 08-11-2022 Emergency department patient visit Dr. Ishmael Vu Work Phone: [facility] Start: 08-09-2022 End: 08-09-[address] Ishmael Vu Work Phone: [facility] Work Phone: Start: 08-09-2022 End: 08-09-[address] Ishmael Vu Work Phone: [facility]/Neurology Start: 08-05-2022 End: 08-05-[address] Ishmael Vu Work Phone: [facility] Work Phone: Start: 08-05-2022 End: 08-05-[address] Ishmael Vu Work Phone: [facility] Internal Medicine Start: 08-05-2022 End: 08-05-[address] Ishmael Vu Work Phone: [facility] Start: 08-03-2022 ambulatory Fide Og Work Phone: [facility] [place] Comment on above: Lumbar radiculopathy (Primary Dx) Start: 07-28-2022 Telephone encounter Toni longo MD Work Phone: [facility] [place] Comment on above: PCP clearance Start: 07-28-2022 End: 07-28-2022 Office outpatient visit 25 minutes Toni Vallejo MD Work Phone: [facility] [place] Comment on above: Weakness of right lo wer extremity (Primary Dx) Start: 07-27-2022 End: 07-27-2022 Subsequent hospital visit by physician Toni Vallejo MD Work Phone: [facility] MRI Comment on above: Weakness of right lo wer extremity Start: 07-23-2022 Telephone encounter Toni longo MD Work Phone: [facility] [place] Comment on above: Advice Only (/) Start: 06-07-2022 End: 06-07-[address] Ishmael Vu Work Phone: [facility] Work Phone: Start: 06-07-2022 End: 06-07-[address] Ishmael Vu Work Phone: [facility] Internal Medicine Start: 06-04-2022 End: 06-04-[address] Ishmael Vu Work Phone: [facility] Orthopaedic Specia Start: 05-31-2022 End: 05-31-[address] Ishmael Vu Work Phone: [facility] Work Phone: Start: 05-31-2022 End: 05-31-[address] Ishmael Vu Work Phone: [facility] Start: 05-26-2022 End: 05-26-[address] Ishmael Vu Work Phone: [facility] Work Phone: Start: 05-26-2022 End: 05-26-[address] Ishmael Vu Work Phone: [facility] Ultrasound Start: 05-18-2022 End: 05-18-[address] Ishmael Vu Work Phone: [facility] Women's Care Start: 04-29-2022 End: 04-29-[address] Ishmael Vu Work Phone: [facility] Orthopaedic Specia Start: 04-27-2022 End: 04-27-2022 Emergency department patient visit Dr. Ishmael Vu Work Phone: [facility] Start: 03-12-2022 End: 03-12-2022 ambulatory ISHMAEL VU Facility:[facility] Start: 03-12-2022 End: 03-12-2022 Patient encounter procedure Yahaira Ramos DO Work Phone: [facility] Obstetrics & Gynecology Comment on above: DUB (dysfunctional u terine bleeding) (Primary Dx) Start: 02-01-2022 End: 02-01-[address] Ishmael Vu Work Phone: [facility] Internal Medicine Start: 12-30-2021 End: 12-30-[address] Ishmael Vu Work Phone: [facility] Internal Medicine Start: 11-20-2021 End: 11-20-2021 Emergency department patient visit JOSELYN JO DO [facility] Start: 11-18-2021 End: 11-18-[address] Ishmael Vu Work Phone: [facility] Orthopaedic Specia Start: 11-02-2021 End: 11-02-[address] Ishmael Vu Work Phone: [facility]Rad[facility], [facility] Start: 10-28-2021 End: 10-28-[address] Ishmael Vu Work Phone: [facility] Internal Medicine Start: 08-05-2021 End: 08-05-[address] Ishmael Vu Work Phone: [facility] Internal Medicine Start: 11-10-2020 End: 11-10-2020 Emergency department patient visit Halie Horn MD Work Phone: [facility] ED Comment on above: Near syncope (Primar y Dx); Anxiety state; test positive Procedures Date Procedure Procedure Detail Performing Clinician Start: 09-20-2024 CT of abdomen and pe lvis without contrast Aki Kenyon MD Work Phone: Start: 09-20-2024 SARS-CoV-2, Influenz a & RSV (PCR) Aki Kenyon MD Work Phone: Start: 09-20-2024 Urine culture Aki haramn MD Work Phone: Start: 07-28-2024 CT of abdomen and pe lvis without contrast Aki Kenyon MD Work Phone: Start: 11-02-2023 MRI of lumbar spine Dr. Ishmael Vu Work Phone: Start: 10-10-2023 Follow-up visit Follow-up TONI VALLEJO Start: 10-06-2023 Mri spinal canal lum bar w/o & w/contr matrl Fide Lewis NP Work Phone: Start: 09-28-2023 CT of abdomen and pe lvis without contrast Dr. Ishmael Vu Work Phone: Start: 02-16-2023 US scan of gallbladder Dr. Ishmael Vu Work Phone: Start: 02-03-[address] e detection Dr[address] Ishmael Vu Work Phone: Start: 02-03-[address] Ishmael Vu Work Phone: Start: 01-18-[address] Ishmael Vu Work Phone: Start: 01-04-2023 Giardia Antigen (DAJA) D andrew Vu Work Phone: Start: 01-04-[address] parasites identification [address] Ishmael Vu Work Phone: Start: 12-22-2022 Diagnostic lumbar sp inal puncture w/fluor or ct Aretha Denis PA-C Work Phone: Start: 12-22-2022 Cell count misc body fluids w/differential count Taz Sky MD Work Phone: Start: 12-22-2022 CSF MANUAL DIFF Taz guzman MD Work Phone: Start: 12-22-2022 Protein total xcpt refractometry oth src Taz Sky MD Work Phone: Start: 11-29-2022 Oph us dx b-scan&alex n a-scan sm pt enctr Taz Sky MD Work Phone: Start: 11-29-2022 End: 11-29-2022 Visual field xm uni/bi w/interp extended exam Taz Sky MD Work Phone: Start: 09-14-2022 FL GUIDANCE OR USE O NLY - NON-RESULTABLE Toni Vallejo MD Work Phone: Start: 09-14-2022 End: 09-14-2022 Proctor facetectomy & foramotomy 1 segment lumbar Toni Vallejo MD Work Phone: Start: 09-14-2022 Blood count complete auto&auto difrntl wbc Fide Lewis BODY PIERCER Work Phone: Start: 09-14-2022 Urine test visual color cmprsn meths Everton Sky MD Work Phone: Start: 08-11-2022 MRI of brain with contrast Dr. Ishmael Vu Work Phone: Start: 08-11-[address] Dunia Vu Work Phone: Start: 07-27-2022 End: 07-27-2022 Mri spinal canal lumbar w/o contrast material Toni Vallejo MD Work Phone: Start: 05-26-[address] Sandra Vu Work Phone: Start: 05-26-[address] Ishmael Vu Work Phone: Start: 04-27-2022 MRI of lumbar spine Dr. Ishmael Vu Work Phone: Start: 11-02-2021 X-ray of lumbar spin e, two or three views Dr. Ishmael Vu Work Phone: Start: 11-10-2020 Us preg uterus real time w/image dcmtn transvag Halie Horn MD Work Phone: Start: 11-10-2020 ADD ON LAB TEST Halie Horn MD Work Phone: Start: 11-10-2020 Comprehensive metabo lic panel Halie Horn MD Work Phone: Start: 11-10-2020 Ecg routine ecg w/le ast 12 lds w/i&r Halie Horn MD Work Phone: Start: 01-13-2015 Diagnostic laparoscopy JOSELYN DEYSI DO Clostridium difficil e detection Dr. Ishmael Vu Work Phone: Lactoferrin measurement Dr. Ishmael Vu Work Phone: Nucleic acid assay Dr. Iliana Vu Work Phone: Urine culture Dr. Ishmael Vu Work Phone: Plan of Treatment Date Care Activity Detail Author Start: 2058 RSV Immunization age d 60 or older (1 - 1-dose 60+ series) RSV Immunization aged 60 or older (1 - 1-dose 60+ series) [facility] Start: 02-21-2048 Zoster Vaccines (1 of 2) Zoste r Vaccines (1 of 2) [facility] Start: 11-12-[address] [facility] Start: 09-21-[address] [facility] Start: 08-10-[address] [facility] Start: 07-28-2024 [facility] Start: 05-21-2024 End: 05-21-2024 Patient encounter procedure 05/21/2024 1:40 PM EDT Office Visit [facility] [address] [place] [id number] Tati Mendoza DO [address] [place] [address] [facility] Start: 03-25-2024 Influenza vaccination S [facility] Start: 12-14-2023 End: 02-13-2024 Angiotensin converting enzyme [Enzymatic activity/volume] in Cerebral spinal fluid ANGIOTEN CON ENZ, CSF Lab Routine Elevation of optic disc, bilateral IIH (idiopathic intracranial hypertension) Expected: 12/14/2023, Expires: 02/13/2024 [facility] Work Phone: Comment on above: Expected: 12/14/2023 , Expires: 02/13/2024 Start: 12-14-2023 End: 02-13-2024 CBC W Auto Differential panel - Blood CBC + DIFF Lab Routine Elevation of optic disc, bilateral IIH (idiopathic intracranial hypertension) Expected: 12/14/2023, Expires: 02/13/2024 [facility] Work Phone: Comment on above: Expected: 12/14/2023 , Expires: 02/13/2024 Start: 12-14-2023 End: 02-13-2024 Cell count panel - Cerebral spinal fluid CSF CELL COUNT Lab Routine Elevation of optic disc, bilateral IIH (idiopathic intracranial hypertension) Expected: 12/14/2023, Expires: 02/13/2024 [facility] Work Phone: Comment on above: Expected: 12/14/2023 , Expires: 02/13/2024 Start: 12-14-2023 End: 02-13-2024 Comprehensive metabolic 2000 panel - Serum or Plasma COMP METABOLIC PANEL Lab Routine Elevation of optic disc, bilateral IIH (idiopathic intracranial hypertension) Expected: 12/14/2023, Expires: 02/13/2024 [facility] Work Phone: Comment on above: Expected: 12/14/2023 , Expires: 02/13/2024 Start: 12-14-2023 End: 02-13-2024 CYTOLOGY NON-COMIC BOOK DESIGNER CYTOLOGY NON-COMIC BOOK DESIGNER Lab Routine Elevation of optic disc, bilateral IIH (idiopathic intracranial hypertension) Expected: 12/14/2023, Expires: 02/13/2024 [facility] Work Phone: Comment on above: Expected: 12/14/2023 , Expires: 02/13/2024 Start: 12-14-2023 End: 02-13-2024 Protein [Mass/volume] in Cerebral spinal fluid PROTEIN CSF Lab Routine Elevation of optic disc, bilateral IIH (idiopathic intracranial hypertension) Expected: 12/14/2023, Expires: 02/13/2024 [facility] Work Phone: Comment on above: Expected: 12/14/2023 , Expires: 02/13/2024 Start: 12-14-2023 End: 02-13-2024 Reagin Ab [Titer] in Cerebral spinal fluid by VDRL VDRL CSF Lab Routine Elevation of optic disc, bilateral IIH (idiopathic intracranial hypertension) Expected: 12/14/2023, Expires: 02/13/2024 [facility] Work Phone: Comment on above: Expected: 12/14/2023 , Expires: 02/13/2024 Start: 11-02-[address] [facility] Start: 10-10-2023 End: 10-10-2023 Telemedicine consultation with patient 10/10/2023 3:15 PM EDT Telemedicine [facility] [address] [place] [address] Toni Vallejo MD [address] [place] [address] [address] [place] [address] [facility] Start: 10-06-2023 End: 10-06-2023 Patient encounter procedure 10/06/2023 8:15 AM EDT Appointment [facility] [address] [place] [id number] Fide Lewis NP 1 [facility] [place] [address] [place], [place] [id number] [facility] [place] Start: 10-04-2023 End: 10-03-2024 MR Lumbar spine WO and W contrast IV MR lumbar spine w and wo contrast Imaging STAT Lumbar pain Lumbar radiculopathy Urinary incontinence, unspecified type Expected: 10/04/2023, Expires: 10/03/2024 [facility] Work Phone: Comment on above: Expected: 10/04/2023 , Expires: 10/03/2024 Start: 09-28-[address] [facility] Start: 03-25-2023 COVID-19 Vaccine () COVID-19 Vaccine () [facility] Start: 03-25-2023 Influenza vaccination C [facility] Start: 02-23-2023 End: 02-23-2023 Patient encounter procedure 02/23/2023 10:45 AM EDT Office Visit [facility] [address] [place] [phone] Toni Vallejo MD 1 [facility] [place] [address] [place] [address] [facility] Start: 01-05-2023 End: 01-05-2023 Patient encounter procedure 01/05/2023 Appointment Radiology [facility] Start: 01-04-2023 Elastase, pancreatic (el-1), fecal; quantitative [facility] Start: 01-04-2023 Protein measurement [facility] Start: 01-04-[address] [facility] Start: 01-03-[address] [facility] Start: 01-03-2023 Serum immunofixation [facility] Start: 01-03-[address] [facility] Start: 12-08-2022 End: 12-08-2022 Patient encounter procedure 12/08/2022 Office Visit Orthopedic Surgery Toni Vallejo MD 1 [employer] [address] [place], [place] [id number] [facility] Start: 11-23-2022 Patient referral [facility] Work Phone: Start: 10-06-2022 End: 10-06-2022 Patient encounter procedure 10/06/2022 Office Visit Orthopedic Surgery Toni Vallejo MD 1 [facility] [place] [address] [place], [place] [id number] [facility] [place] Start: 09-14-2022 End: 09-14-2022 Admission to same day surgery center 09/14/2022 Surgery Procedural Toni Vallejo MD 1 [facility] [employer] [address] [place], [place] [phone] Lumbar MIS Right L5/S1 Laminectomy [79115 (CPT )] [facility] Comment on above: Lumbar MIS Right L5/ S1 Laminectomy [44930 (CPT )] Start: 09-14-2022 End: 09-14-2022 Anesthesia consultation 09/14/2022 Anesthesia Event Procedural Judy Peralta PA [address] [place] [address] [facility] OR Start: 09-14-2022 End: 09-14-2022 Proctor facetectomy & foramotomy 1 segment lumbar POSTERIOR LUMBAR LAMINECTOMY FACETECTOMY FORAMINOTOMY AND DECOMPRESSION Radiculopathy, lumbosacral region Spinal stenosis, lumbosacral region 09/14/2022 3:30 PM EST [facility] Operating Room Start: 09-14-2022 Subsequent hospital visit by physician 09/14/2022 Hospital Encounter Procedural Toni Vallejo MD 1 [facility] [place] [address] [place], [place] [phone] [facility] Start: 09-07-2022 End: 09-07-2022 Admission to establishment 09/07/2022 Pre-Admission Testing Pre-Admission Testing [facility] Pre-Admit Testing Start: 08-25-2022 End: 10-25-2022 ERICA BY IFA WITH REFLEX ERICA BY IFA WITH REFLEX Lab Routine Papilledema Optic neuritis Idiopathic intracranial hypertension Expected: 08/25/2022, Expires: 10/25/2022 [facility] Work Phone: Comment on above: Expected: 08/25/2022 , Expires: 10/25/2022 Start: 08-25-2022 End: 10-25-2022 Angiotensin converting enzyme [Enzymatic activity/volume] in Serum or Plasma ABELINO/ANGIOTENSIN BLD Lab Routine Papilledema Optic neuritis Idiopathic intracranial hypertension Expected: 08/25/2022, Expires: 10/25/2022 [facility] Work Phone: Comment on above: Expected: 08/25/2022 , Expires: 10/25/2022 Start: 08-25-2022 End: 10-25-2022 SALES EXPERT HOME THEATER DEMYELINATING DISEASE EVALUATION, SERUM SALES EXPERT HOME THEATER DEMYELINATING DISEASE EVALUATION, SERUM Lab Routine Papilledema Optic neuritis Idiopathic intracranial hypertension Expected: 08/25/2022, Expires: 10/25/2022 [facility] Work Phone: Comment on above: Expected: 08/25/2022 , Expires: 10/25/2022 Start: 08-25-2022 End: 10-25-2022 Cobalamin (Vitamin B12) [Mass/volume] in Serum or Plasma VITAMIN B12 BLOOD Lab Routine Papilledema Optic neuritis Idiopathic intracranial hypertension Expected: 08/25/2022, Expires: 10/25/2022 [facility] Work Phone: Comment on above: Expected: 08/25/2022 , Expires: 10/25/2022 Start: 08-25-2022 End: 10-25-2022 Extractable nuclear Ab panel - Serum ANTI DORA ID Lab Routine Papilledema Optic neuritis Idiopathic intracranial hypertension Expected: 08/25/2022, Expires: 10/25/2022 [facility] Work Phone: Comment on above: Expected: 08/25/2022 , Expires: 10/25/2022 Start: 08-25-2022 End: 10-25-2022 Homocysteine [Moles/volume] in Serum or Plasma HOMOCYSTEINE Lab Routine Papilledema Optic neuritis Idiopathic intracranial hypertension Expected: 08/25/2022, Expires: 10/25/2022 [facility] Work Phone: Comment on above: Expected: 08/25/2022 , Expires: 10/25/2022 Start: 08-25-2022 End: 10-25-2022 Methylmalonate [Moles/volume] in Serum or Plasma METHYLMALONIC ACID Lab Routine Papilledema Optic neuritis Idiopathic intracranial hypertension Expected: 08/25/2022, Expires: 10/25/2022 [facility] Work Phone: Comment on above: Expected: 08/25/2022 , Expires: 10/25/2022 Start: 08-03-2022 End: 08-03-2023 Methicillin resistant Staphylococcus aureus (MRSA) DNA [Presence] in Nose by JULIETTE with probe detection MRSA by PCR Microbiology Routine Lumbar radiculopathy Expected: 08/03/2022 (Approximate), Expires: 08/03/2023 [facility] Work Phone: Comment on above: Expected: 08/03/2022 (Approximate), Expires: 08/03/2023 Start: 07-28-2022 End: 07-28-2023 25-hydroxyvitamin D3 [Mass/volume] in Serum or Plasma Vitamin D 25 hydroxy Lab Routine Weakness of right lower extremity Expected: 07/28/2022 (Approximate), Expires: 07/28/2023 [facility] Comment on above: Expected: 07/28/2022 (Approximate), Expires: 07/28/2023 Start: 07-28-2022 End: 07-28-2023 CBC W Auto Differential panel - Blood CBC and differential Lab Routine Weakness of right lower extremity Expected: 07/28/2022 (Approximate), Expires: 07/28/2023 [facility] Comment on above: Expected: 07/28/2022 (Approximate), Expires: 07/28/2023 Start: 07-28-2022 End: 07-28-2023 Comprehensive metabolic 1998 panel - Serum or Plasma Comprehensive metabolic panel Lab Routine Weakness of right lower extremity Expected: 07/28/2022 (Approximate), Expires: 07/28/2023 [facility] Comment on above: Expected: 07/28/2022 (Approximate), Expires: 07/28/2023 Start: 07-28-2022 End: 07-28-2023 Hemoglobin A1c/Hemoglobin.total in Blood Hemoglobin A1c Lab Routine Weakness of right lower extremity Expected: 07/28/2022 (Approximate), Expires: 07/28/2023 [facility] Work Phone: Comment on above: Expected: 07/28/2022 (Approximate), Expires: 07/28/2023 Start: 07-28-2022 End: 07-28-2022 Patient encounter procedure 07/28/2022 Office Visit Orthopedic Surgery Toni Vallejo MD 1 Guest of a Guest [address] [place], [place] [id number] [facility] [place] Start: 07-27-2022 End: 07-27-2022 Patient encounter procedure 07/27/2022 Appointment Radiology Toni Vallejo MD 1 Guest of a Guest [address] [place], [place] [id number] [facility] Start: 05-31-2022 Chlamydia deoxyribon ucleic acid detection [facility] Work Phone: Start: 05-31-2022 Liquid based cervica l cytology screening [facility] Work Phone: Start: 04-29-2022 Patient referral [facility] Work Phone: Start: 03-25-2022 Influenza vaccination C [facility] Start: 03-12-2022 End: 03-12-2023 BIOAVAIL TESTO/SHBG, FEM & CHILD BIOAVAIL TESTO/SHBG, FEM & CHILD Lab Routine DUB (dysfunctional uterine bleeding) Expected: 03/12/2022, Expires: 03/12/2023 [facility] Work Phone: Comment on above: Expected: 03/12/2022 , Expires: 03/12/2023 Start: 03-12-2022 End: 03-12-2023 DHEA-S BLD DHEA-S BLD Lab Routine DUB (dysfunctional uterine bleeding) Expected: 03/12/2022, Expires: 03/12/2023 [facility] Work Phone: Comment on above: Expected: 03/12/2022 , Expires: 03/12/2023 Start: 03-12-2022 End: 03-12-2023 Hemoglobin A1c in Blood HGB A1C Lab Routine DUB (dysfunctional uterine bleeding) Expected: 03/12/2022, Expires: 03/12/2023 [facility] Work Phone: Comment on above: Expected: 03/12/2022 , Expires: 03/12/2023 Start: 03-12-2022 End: 03-12-2023 Prolactin [Mass/volume] in Serum or Plasma PROLACTIN BLD Lab Routine DUB (dysfunctional uterine bleeding) Expected: 03/12/2022, Expires: 03/12/2023 [facility] Work Phone: Comment on above: Expected: 03/12/2022 , Expires: 03/12/2023 Start: 03-12-2022 End: 03-12-2023 Thyrotropin [Units/volume] in Serum or Plasma TSH BLD Lab Routine DUB (dysfunctional uterine bleeding) Expected: 03/12/2022, Expires: 03/12/2023 [facility] Work Phone: Comment on above: Expected: 03/12/2022 , Expires: 03/12/2023 Start: 10-28-2021 Patient referral [facility] Work Phone: Start: 08-05-2021 Patient referral [facility] Work Phone: Start: 04-21-2021 DTaP/Tdap/Td vaccine (7 - Td) DTaP/Tdap/Td vaccine (7 - Td) [facility] Work Phone: Start: 04-21-2021 DTaP/Tdap/Td Vaccine s (7 - Td or Tdap) DTaP/Tdap/Td Vaccines (7 - Td or Tdap) [facility] Start: 04-21-2021 Urine microalbumin profile DTA P,TDAP,TD (7 - Td or Tdap) [facility] Start: 04-16-2021 COVID-19 VACCINE (3 - Booster for Pfizer series) COVID-19 VACCINE (3 - Booster for Pfizer series) [facility] Start: 01-09-2021 COVID-19 VACCINE (3 - Booster for Pfizer series) COVID-19 VACCINE (3 - Booster for Pfizer series) [facility] Start: 01-09-2021 COVID-19 VACCINE (3 - Pfizer series) COVID-19 VACCINE (3 - Pfizer series) [facility] Start: 11-12-2020 End: 12-10-2020 HCG, Quantitative, HCG, Quantitative, Lab Routine test positive Expected: 11/12/2020, Expires: 12/10/2020 [facility] Work Phone: Comment on above: Expected: 11/12/2020 , Expires: 12/10/2020 Start: 2019 PAP TESTING PAP TESTING [facility] Start: 2019 Screening for malign ant neoplasm of cervix [facility] Start: 07-21-2017 End: 07-21-2017 Appointment Appointment [facility] Work Phone: Start: 07-01-2017 End: 07-01-2017 Appointment Appointment [facility] Work Phone: Start: 04-12-2016 HPV vaccine (2 - 3-d ose series) HPV vaccine (2 - 3-dose series) [facility] Start: 04-12-2016 HPV Vaccines (2 - 3- dose series) HPV Vaccines (2 - 3-dose series) [facility] Start: 02-21-2016 CHLAMYDIA SCREENING (18-24) CHLAMYDIA SCREENING (18-24) [facility] Start: 02-21-2016 GC (GONORRHEA) SCREE IVAN (18-24) GC (GONORRHEA) SCREENING (18-24) [facility] Start: 02-21-2016 HEPATITIS C SCREENING HEPATITIS C [facility] Start: 02-21-2016 Hepatitis C screening Hepatitis C [facility] Start: 02-21-2016 HIV SCREENING HIV SCREENING [facility] Start: 2014 COVID-19 Vaccine (1) COVID-19 Vaccin e (1) [facility] Work Phone: Start: 2014 MENINGOCOCCAL B: 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 (1 of 2 - Patient Seeks Protection) MENINGOCOCCAL B: Consider based on risk (1 of 2 - Patient Seeks Protection) [facility] Start: 2014 Screening for Chlamy dione trachomatis Chlamydia screen [facility] Work Phone: Start: 2013 HIV screening HIV screen [facility] Work Phone: Start: 02-21-2012 PEDS TO ADULT TRANSI TION ANNUAL ASSESSMENT PEDS TO ADULT TRANSITION ANNUAL ASSESSMENT [facility] Start: 2010 Adult depression scr eening assessment DEPRESSION SCREENING [facility] Start: 2010 Depression Monitoring Depression Mon itoring [facility] Start: 2010 Depresssion Monitoring Depresssion M onitoring [facility] Start: 2010 PEDS TO ADULT TRANSI TION INITIAL DISCUSSION PEDS TO ADULT TRANSITION INITIAL DISCUSSION [facility] Start: 02-21-2008 MENINGOCOCCAL B: 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in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 Electrophoresis: chase ma globulin [facility] End: 01-21-2024 EPIL EEG LEAD PLACEMENT EPIL EEG LEAD PLACEMENT NEUROLOGY Routine Generalized epilepsy (HCC) Seizure-like activity (HCC) 1 Occurrences starting 01/20/2023 until 01/21/2024 [facility] Work Phone: Comment on above: 1 Occurrences starti ng 01/20/2023 until 01/21/2024 EPIL VEEG ADMIT TO EMU/PMU EPIL VEEG ADMIT TO EMU/PMU NEUROLOGY Routine Generalized epilepsy (HCC) Seizure-like activity (HCC) Ordered: 01/20/2023 [facility] Work Phone: Comment on above: Ordered: 01/20/[address] [facility] Glucose [Mass/volume ] in Cerebral spinal fluid GLUCOSE CSF Lab Routine Elevation of optic disc, bilateral IIH (idiopathic intracranial hypertension) Ordered: 11/29/2022 [facility] Work Phone: Comment on above: Ordered: 11/29/2022 IgA [Mass/volume] in Serum or Plasma [facility] IgE [Units/volume] i n Serum or Plasma [facility] IgG [Mass/volume] in Serum or Plasma [facility] IgM [Mass/volume] in Serum or Plasma [facility] IR LP FOR DRAINAGE (PRESSURE) IR LP FOR DRAINAGE (PRESSURE) Radiology MELLY Elevation of optic disc, bilateral IIH (idiopathic intracranial hypertension) Ordered: 11/29/2022 [facility] Work Phone: Comment on above: Ordered: 11/29/2022 MR Lumbar spine [facility] Work Phone: End: 01-05-2023 MR Lumbar spine WO and W contrast IV [facility] [employer] Work Phone: Comment on above: Once for 1 Occurrenc es starting 01/05/2023 until 01/05/2023 End: 09-24-2023 Mra head w/o & w/contrast material MRV BRAIN WO/W IVCON Radiology Routine Papilledema Optic neuritis Idiopathic intracranial hypertension 1 Occurrences starting 08/25/2022 until 09/24/2023 [facility] Work Phone: Comment on above: 1 Occurrences starti ng 08/25/2022 until 09/24/2023 End: 09-08-2022 Mra head w/o & w/contrast material [facility] Work Phone: Comment on above: 1 Occurrences starti ng 09/08/2022 until 09/08/2022 End: 09-24-2023 Mri orbit face & neck w/o & w/contrast matrl MRI ORBIT WO/W IVCON Radiology Routine Papilledema Optic neuritis Idiopathic intracranial hypertension 1 Occurrences starting 08/25/2022 until 09/24/2023 [facility] Work Phone: Comment on above: 1 Occurrences starti ng 08/25/2022 until 09/24/2023 End: 09-08-2022 Mri orbit face & neck w/o & w/contrast matrl [facility] Work Phone: Comment on above: 1 Occurrences starti ng 09/08/2022 until 09/08/2022 Neutrophil cytoplasm ic Ab.classic [Units/volume] in Serum [facility] OUTSIDE PROCEDURE SCAN OUTSIDE P ROCEDURE SCAN Procedures Ordered: 01/04/2023 [facility] Comment on above: Ordered: 01/04/2023 Ova and parasites identified in Unspecified specimen by Light microscopy [facility] P-ANCA measurement [facility] Path report.final Dx Spec [facility] Work Phone: Patient Education [facility] Work Phone: Patient referral [facility] Work Phone: PELVIC US WHI PELVIC US WHI An c Imaging Routine DUB (dysfunctional uterine bleeding) Ordered: 03/12/2022 [facility] Work Phone: Comment on above: Ordered: 03/12/2022 Protein electrophore sis panel - Serum or Plasma [facility] Reagin Ab [Titer] in Cerebral spinal fluid by VDRL VDRL CSF Lab Routine Elevation of optic disc, bilateral IIH (idiopathic intracranial hypertension) 12/22/2022 10:02 AM EDT [facility] Work Phone: Serum protein electrophoresis [facility] End: 11-10-2020 [facility] POINT [facility] ULTRASOUND Imaging STAT Once for 1 Occurrences starting 11/10/2020 until 11/10/2020 [facility] Work Phone: Comment on above: Once for 1 Occurrenc es starting 11/10/2020 until 11/10/2020 US Gallbladder [facility] Immunizations Immunization Date Immunization Notes Care Provider Fa bisi 04-28-2020 Flucelvax Quad 2019- 2020 (PF) (flu vac qs 2020(4 yr up)CD(PF)) 60 mcg ([address] Ishmael Vu Work Phone: [facility] Work Phone: 04-28-2020 influenza, injectable,quadrivalent, preservative free, pediatric Dr. Ishmael Vu Work Phone: [facility] 04-28-2020 influenza, seasonal, injectable, preservative free Yahaira Ramos DO Work Phone: [facility] 04-28-2020 influenza virus vacc ine, unspecified formulation Toni Vallejo MD Work Phone: [facility] 03-15-2016 Human Papillomavirus 9-valent vaccine Yahaira Ramos DO Work Phone: [facility] 03-15-2016 HPV, unspecified formulation Toni Vallejo MD Work Phone: [facility] 03-08-2016 meningococcal oligosaccharide (groups A, C, Y and W-135) diphtheria toxoid conjugate vaccine (MCV4O) Yahaira Ramos DO Work Phone: [facility] 04-21-2011 tetanus toxoid, redu edy diphtheria toxoid, and acellular pertussis vaccine, adsorbed Yahaira Ramos DO Work Phone: [facility] 04-21-2011 varicella virus vaccine Kee miriam Bihemant DO Work Phone: [facility] 03-26-2003 diphtheria, tetanus toxoids and acellular pertussis vaccine, unspecified formulation Yahaira Bihemant DO Work Phone: [facility] 03-26-2003 hepatitis B vaccine, pediatric or pediatric/adolescent dosage Yahaira Biats DO Work Phone: [facility] 03-26-2003 measles, mumps and rubella virus vaccine Yahaira Biats DO Work Phone: [facility] 03-26-2003 trivalent poliovirus vaccine, live, oral Yahaira Ramos DO Work Phone: [facility] 08-27-1999 diphtheria, tetanus toxoids and acellular pertussis vaccine, unspecified formulation Yahaira Bihemant DO Work Phone: [facility] 08-27-1999 trivalent poliovirus vaccine, live, oral Yahaira Ramos DO Work Phone: [facility] 07-09-1999 trivalent poliovirus vaccine, live, oral Yahaira Ramos DO Work Phone: [facility] 06-24-1999 measles, mumps and rubella virus vaccine Yahaira Biats DO Work Phone: [facility] 03-03-1999 varicella virus vaccine Kee Ramos DO Work Phone: [facility] 1998 diphtheria, tetanus toxoids and acellular pertussis vaccine, unspecified formulation Yahaira Biats DO Work Phone: [facility] 1998 haemophilus influenz ae type b vaccine, conjugate unspecified formulation Yahaira Armandoats DO Work Phone: [facility] 1998 hepatitis B vaccine, pediatric or pediatric/adolescent dosage Yahaira Biats DO Work Phone: [facility] 1998 diphtheria, tetanus toxoids and acellular pertussis vaccine, unspecified formulation Yahaira Biats DO Work Phone: [facility] 1998 haemophilus influenz ae type b vaccine, conjugate unspecified formulation Yahaira Bihemant DO Work Phone: [facility] 1998 poliovirus vaccine, inactivated Yahaira Bihemant DO Work Phone: [facility] 1998 diphtheria, tetanus toxoids and acellular pertussis vaccine, unspecified formulation Yahaira Bihemant DO Work Phone: [facility] 1998 haemophilus influenz ae type b vaccine, conjugate unspecified formulation Yahaira Bihemant DO Work Phone: [facility] 1998 hepatitis B vaccine, pediatric or pediatric/adolescent dosage Yahaira Biats DO Work Phone: [facility] 1998 poliovirus vaccine, inactivated Yahaira Ramos DO Work Phone: [facility] 1998 hepatitis B vaccine, pediatric or pediatric/adolescent dosage Yahaira Bihemant DO Work Phone: [facility] Payers Date Payer Category Payer Self-pay [id number] 2022 Unknown [id number] 2018 Medicaid [id number] 2018 Unknown [id number] 2015 Private Health Insurance [id number] Unknown [id number] 2.16.8 [id number] Unknown [id number] 2.16.8 [id number] Unknown [id number] 2.16.8 [id number] Unknown [id number] 2.16.8 [id number] Unknown [id number] 2.16.8 [id number] Unknown [id number] 2.16.8 [id number] Unknown [id number] 2.16.8 [id number] Unknown [id number] 2.16.8 [id number] Unknown [id number] 2.16.8 [id number] Unknown [id number] 2.16.8 [id number] Unknown [id number] 2.16.8 [id number] Unknown [id number] 2.16.8 [id number] Unknown [id number] 2.16.8 [id number] Unknown [id number] 2.16.8 [id number] Unknown [id number] 2.16.8 [id number] Unknown [id number] 2.16.8 [id number] Unknown [id number] 2.16.8 [id number] Unknown [id number] 2.16.8 [id number] Social History Date Type Detail Facility Start: 11-10-2020 End: 06-23-2022 Tobacco smoking status [facility] Former smoker [facility] Work Phone: End: 01-22-2005 History of tobacco use Current smoker [facility] End: 01-22-2005 History of tobacco use Cigarette Smoker [facility] Start: 11-10-2020 End: 09-07-2022 Tobacco use and exposure Never used [facility] Start: 1998 Sex Assigned At Not on file S [facility] Work Phone: Start: 07-02-2022 End: 01-04-2023 Exposure to SARS-CoV-2 (event) Not sure [facility] Start: 10-28-2021 End: 11-02-2023 Tobacco smoking status NHIS Unknown if ever smoked [facility] Start: 05-29-[address] 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) [facility] Start: 09-05-2018 Tobacco Comment vapes every no w and then [facility] Start: 02-02-2022 End: 02-12-2022 Exposure to SARS-CoV-2 (event) Unable to assess [facility] Start: 08-25-2022 End: 09-22-2022 Alcohol intake Current drinker of alcohol (finding) [facility] Start: 08-25-2022 Education 13 [facility] Start: 08-25-2022 Tobacco Comment Former vape user [facility] Start: 08-25-2022 Alcohol Comment Less than once a week [facility] Start: 11-24-2022 End: 11-12-2024 Tobacco smoking status NHIS Smokes tobacco daily [facility] Start: 11-24-2022 Tobacco Comment Vape user [facility] Start: 09-14-2022 History SDOH IPV Fear 2 S [facility] Start: 09-07-2022 [facility] Start: 09-14-2022 End: 10-04-2023 History of Social function [facility] Start: 09-14-2022 End: 10-04-2023 Humiliation, Afraid, Rape, and Kick questionnaire [HARK] [facility] Within the last year , have you been afraid of your partner or ex-partner? No [facility] PHQ2 Score 1 [facility] Start: 11-12-2024 Sex Female (finding) [facility] NEGATED: Highlighted row [facility] Functional Status Date Assessment Result Facility 11-20-2021 [facility] Status Date Assessment Result Facility 09-20-2024 Cognitive function Level Of Cons ciousness Awake;Alert;Appropriate;Follow s Commands [facility] Work Phone: 11-20-2021 [facility] Notes 11-20-2021 to 09-06-2024 Note Date & Type Note Facility 09-06-2024 Evaluation note Diagnosis Onset Date Resolution Elevated androgen levels acute September 06, 2024 3:19pm Oligomenorrhea acute August 252024 3:19pm [facility] Work Phone: 1(590) 774-816707-05-2024 Telephone encounter Note* Telephone Encounter - Juju Ferguson RN - 01/27/2024 11:27 AM EDT S: The patient is calling the [facility] about back pain B: She has a history of back pain with a surgery last year. A: This is similar to the previous pain that she has had in her back. No new injury but the pain isfairly severe. The pain is radiating to the top of the thigh and she describes this as burning - this also is not new. No difficulty with urination or defecation; no fever. She is able to walk but it is painful and this causes the pain to go lower in the legs. She is working with a PCP to get SSI. She has seen Dr. Vallejo and he told her this continued to behealing from the back surgery and this would last 2-3 years. R: She has a new patient appointment with Dr. Mendoza; she should keep this. She was in the ED for the pain at [facility] in July. Suggested that she should consult with Dr. Vallejo as he has been caring for this in the past; she does not wish to do this. Reason for Disposition SEVERE back pain (e.g., excruciating, unable to do any normal activities) and not improved after pain medicine and CARE ADVICE Protocols used: Back [id number] [id number] Miscellaneous Notes* Telephone Encounter - Juju Florian RN - 01/27/2024 11:27 AM EDT S: The patient is calling the [facility] about back pain B: She has a history of back pain with a surgery last year. A: This is similar to the previous pain that she has had in her back. No new injury but the pain isfairly severe. The pain is radiating to the top of the thigh and she describes this as burning - this also is not new. No difficulty with urination or defecation; no fever. She is able to walk but it is painful and this causes the pain to go lower in the legs. She is working with a PCP to get SSI. She has seen Dr. Vallejo and he told her this continued to behealing from the back surgery and this would last 2-3 years. R: She has a new patient appointment with Dr. Mendoza; she should keep this. She was in the ED for the pain at [facility] in July. Suggested that she should consult with Dr. Vallejo as he has been caring for this in the past; she does not wish to do this. Reason for Disposition SEVERE back pain (e.g., excruciating, unable to do any normal activities) and not improved after pain medicine and CARE ADVICE Protocols used: Back [id number] documented in this [facility]SMer[facility] [id number] Telephone encounter Note* Telephone Encounter - Bibiana Waters - 11/21/2023 1:15 PM EDT Pt is not under any restrictions from a spine standpoint. [facility] [id number] Miscellaneous Notes* Telephone Encounter - Bibiana Waters - 11/21/2023 1:15 PM EDT Pt is not under any restrictions from a spine standpoint. * Telephone Encounter - Minda Loya - 11/21/2023 12:37 PM EDT Pt called stating that she needs a dated letter/ list of restrictions sent to [employer] [facility] at [phone]. Please advise. documented in this encounterSMercy Health Lor[facility] [id number] Telephone encounter Note* Telephone Encounter - Minda Loya - 11/21/2023 12:37 PM EDT Pt called stating that she needs a dated letter/ list of restrictions sent to [employer] at [phone]. Please advise. [facility] [id number] Discharge summary Author Aki Kenyon [facility] November 02, 2023 10:46pm Note Date/Time November 02, 2023 7:4 5pm [facility] Medical Records Department [address] [place] [address] Emergency Department Summary 11/02/23 MR#: [id number] Acct: [id number] Name: PAMELA ALEGRIA Rep #:[id number] : 2000 23 From: Aki Kenyon MD PCP: Dr. Ishmael Vu MD Status:R EG ER Location: ED HPI History of Present Illness Chief Complaint: Back Narrative Narrative: 23-year-old female past medical history of chronic back pain, anxiety and depression, degenerative disc disease and radiculopathy states that she had a laminectomy performed at [facility] in August of last year. She has had problems ever since. She states that earlier she used to follow with Dr. Meza, but in her words, he would not do anything and told her that surgery was too risky. She had found someone at [facility] to perform the laminectomy. Ofnote, she was seen in the emergency department in early September, almost 1 month ago and was told to follow-up with her surgeon at [facility]. She states that she did, and was found to have another bulging disc after they performed an x-ray, but was told that they would not perform surgery on her again. She relates history that she is having increased back pain. Her significant other who is with her, states there is times where she will have pain in her back and a burning sensation up the middle of her spine. Additionally, she states that shehas been having problems with controlling her bladder. This has been ongoing for weeks however, but gotten worse over the last few days. No fevers or chills, no nausea or vomiting, but she states that she has a sensation to urinate but cannot, then other times she states that she will still feel like she has to urinate and she will continuously stream urine. Additionally, she relates history that because of the pain she has been laying in bed for the pastfew days. Questionable saddle anesthesia. [facility] Medical History Abdominal discomfort Abdominal pain Acute exacerbation of chronic low back pain Anxiety Anxiety and depression Back problem Change in bowel habit Depression Epilepsy Flu vaccine need Gastroenteritis GERD (gastroesophageal reflux disease) Headache HTN (hypertension) Insomnia Irritable bowel syndrome with diarrhea Nausea and vomiting Seizures Home Medications omeprazole 40 mg capsule,delayed release See Rx Instructions .Route .COMPLEX #90caps 09/02/23 [Rx Last Taken Unknown] sertraline 100 mg tablet 100 mg PO DAILY #30 tabs 09/21/23 [Rx Last Taken Unknown] norethindrone (contraceptive) 0.35 mg tablet (Stephan) 0.35 mg PO QDAY #28 tabs 09/27/23 [Rx Last Taken Unknown] tramadol 50 mg tablet 50 mg PO Q4H PRN PRN Pain 5 days #20 tabs 09/28/23 [Rx Last Taken Unknown] tramadol 50 mg tablet 50 mg PO Q6H PRN pain #12 tabs 11/02/23 [Rx Last Taken Unknown] Allergy/AdvReac Type Severity Reaction Status Date / Time Iodinated Contrast Media Allergy Intermediate HIVES, Verified 11/02/23 18:08 SHORT OF BREATH codeine phosphate Allergy Hives Verified 11/02/23 18:08 [From Tylenol-Codeine #3] morphine Allergy Itching Verified 11/02/23 18:08 oxycodone HCl [From Percocet] Allergy Hives Verified 11/02/23 18:08 red dye Allergy Hives Verified 11/02/23 18:08 hydromorphone [From Dilaudid] AdvReac Itching Verified 11/02/23 18:08 Family History Mother Endometriosis Depression with anxiety Grandfather Diabetes Aunt Diabetes Grandfather Cancer unknown CA, passed of Unknown Hypertension High cholesterol Father Depression with anxiety Bipolar 1 disorder Surgical History H/O laparoscopy History of laminectomy Social History Smoking Status: Heavy Smoker (>10/day) Electronic Cigarette Use: with nicotine alcohol intake: never substance use type: does not use caffeine: Yes what type of physical activity do you participate in: none seatbelt use: always do you feel safe at home: Yes 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 HEENT: No sore throat. No neck pain. No loss of vision. No rhinorrhea. Cardiovascular: No chest pain. No palpitations. No pedal edema. Respiratory: No cough, no shortness of breath. Abdominal: No abdominal pain. No nausea. No vomiting. Genitourinary: No dysuria. No hematuria. Problems with bladder control. Musculoskeletal: No myalgias. No arthralgias. Positive low back pain with radiation down right leg. Neurologic: No headaches. No dizziness. No lightheadedness. Skin: No rash. No change in color. Psychiatric: No depression. No anxiety. EXAM Physical Exam Narrative Exam Narrative: Afebrile. Vital signs noted. HEENT: Normocephalic. Atraumatic. PERRL, EOMI. Neck soft and supple. No pointtenderness or step off. Cardiovascular: Regular rate and rhythm with intermittent tachycardia. No murmurs, rubs, or gallops appreciated. Respiratory: No tachypnea. Lungs clear to auscultation bilaterally. Gastrointestinal: Abdomen soft, nontender, with normoactive bowel sounds. No rebound or guarding. Neurological: Awake. Alert. Nonfocal, nonlateralizing. Able to sit up and ambulate and stand without difficulty. EHL intact bilaterally. Negative cross symptoms for straight leg raising. Able to raise right leg off bed. Chaperonedrectal examination shows normal rectal tone/sphincter tone. Skin: No rash. Normal color. No pallor. Musculoskeletal: No pedal edema. Full range of motion extremities. Const Vital Signs: 11/02/23 18:06 11/02/23 20:06 11/02/23 22:00 Temperature 96.8 F L Temperature Source Temporal Pulse Rate 102 H 62 64 Respiratory Rate 20 H 16 18 Blood Pressure 135/95 H 136/89 H 128/76 H Blood Pressure Mean 108 104 93 Pulse Ox 99 97 98 Oxygen Delivery Method Room Air Room Air Room Air MDM MDM MDM Narrative Medical decision making narrative: In the differential diagnosis is cauda equina versus discitis versus chronic lumbar radiculopathy/acute on chronic. I reviewed the patient's prior records. She was supposed to follow-up with her surgeon. She states she did. She is relating history that she is having loss of bladder control. She has questionable saddle anesthesia. She has increased pain in her back. Also in review of her problem list, she lists cauda equina syndrome. Given her history,emergent MRI will be ordered. She was seen being able to stand and change into a gown and transfer. Additionally, I reviewed her prior ED visits and she received Dilaudid for pain although she lists it as an allergy currently along with codeine and morphine and oxycodone. She will be given 50 mcg of fentanyl intravenously for analgesia. I reviewed the laboratory work from today and her urinalysis shows no evidence of infection. I do not feel antibiotics are indicated. She has normal white count of 8.2. Hemoglobin normal at 13.5. Serum is negative. Electrolyte panel is grossly unremarkable. I did do a chaperoned rectal examination and she was able to transfer and turn to her right side without difficulty, and she was able to bend and sit up. Given her clinical examination, I have a lower suspicion for cauda equina or discitis. I think she is probably having chronic radicular pain. Patient states that she had a miscarriage in 2020, and she has been having problems withurination since then. She was told by her sandwich machine operator that there could have been some relationship to this. I reviewed the radiology report of the MRI of the lumbar spine. She has small posterior disc bulging at L4-L5 and L5-S1. It is unchanged from previous MRI. At this point in time, I do think it is probably more of a matter of pain control with her. She should follow-up with her spine surgeon at [facility]. I will write her prescription for 12 tramadol given her multiple allergies to oral medications. I did discuss with her that she may need to enter pain management as well. I feel she can be discharged given her negative MRI, and her normal clinical examination currently. Disposition is discharged home in stable condition. History & Record Review Discussion w/independent historian: Patient and Significant other Additional record(s) reviewed:: Prior ED visit Lab Data Attestation: I reviewed the patient's lab results. Labs: Laboratory Results - last 24 hr 11/02/23 11/02/23 11/02/23 20:00 20:00 20:25 WBC Cancelled Corrected WBC Cancelled RBC Cancelled Hgb Cancelled Hct Cancelled MCV Cancelled MCH Cancelled MCHC Cancelled RDW Std Deviation Cancelled RDW Coeff of Danis Cancelled Plt Count Cancelled MPV Cancelled Immature Gran % (Auto) Cancelled Neut % (Auto) Cancelled Lymph % (Auto) Cancelled Bartholomew % (Auto) Cancelled Eos % (Auto) Cancelled Baso % (Auto) Cancelled Absolute Neuts (auto) Cancelled Absolute Lymphs (auto) Cancelled Total Counted Cancelled Neutrophils % (Manual) Cancelled Band Neutrophils % Cancelled Lymphocytes % (Manual) Cancelled Monocytes % (Manual) Cancelled Eosinophils % (Manual) Cancelled Basophils % (Manual) Cancelled Metamyelocytes % Cancelled Myelocytes % Cancelled Promyelocytes % Cancelled Blast Cells % Cancelled Plasma Cell % (Manual) Cancelled Other Cells % Cancelled Nucleated RBC % Cancelled Nucleated RBCs/100 WBC Cancelled Differential Comment Cancelled Diff Path Review Cancelled Hypersegmented Neuts Cancelled Atypical Lymphocytes Cancelled Reactive Lymphocytes Cancelled Smudge Cells Cancelled Toxic Granulation Cancelled Toxic Vacuolation Cancelled Dohle Bodies Cancelled Mindy Rods Cancelled Platelet Estimate Cancelled Plt Morphology Comment Cancelled RBC Morphology Cancelled Cancelled Polychromasia Cancelled Hypochromasia Cancelled Basophilic Stippling Cancelled Anisocytosis Cancelled Microcytosis Cancelled Macrocytosis Cancelled Spherocytes Cancelled Sickle Cells Cancelled Target Cells Cancelled Tear Drop Cells Cancelled Ovalocytes Cancelled Stomatocytes Cancelled Ornelas-Foreman Bodies Cancelled Francis Cells Cancelled Bite Cells Cancelled Crenated Cell Cancelled Acanthocytes (Spur) Cancelled Rouleaux Cancelled Schistocytes Cancelled Sodium Cancelled Potassium Cancelled Chloride Cancelled Carbon Dioxide Cancelled Anion Gap Cancelled BUN Cancelled Creatinine Cancelled Estim Creat Clear Calc Cancelled Est GFR (MDRD) Af Amer Cancelled Est GFR (MDRD) Non-Af Cancelled BUN/Creatinine Ratio Cancelled Glucose Cancelled Calcium Cancelled Serum , Qual Cancelled Urine Color Yellow Urine Clarity Clear Urine pH 6.5 Ur Specific Holton 1.020 Urine Protein 15 H Urine Glucose (UA) Normal Urine Ketones Negative Urine Occult Blood 10 H Urine Nitrite Negative Urine Bilirubin Negative Urine Urobilinogen Normal Ur Leukocyte Esterase Negative Urine RBC 0-5 SEEN Urine WBC 0-5 SEEN Ur Squamous Epith Cells 0-5 SEEN Urine Bacteria 1+ Urine Mucus 0 SEEN 11/02/23 20:44 WBC 8.2 Corrected WBC RBC 4.50 Hgb 13.5 Hct 41.6 MCV 92.4 MCH 30.0 MCHC 32.5 RDW Std Deviation 48.1 H RDW Coeff of Danis 14.1 Plt Count 284 MPV 9.8 Immature Gran % (Auto) 0.500 Neut % (Auto) 58.8 Lymph % (Auto) 31.9 Bartholomew % (Auto) 7.1 Eos % (Auto) 1.1 Baso % (Auto) 0.6 Absolute Neuts (auto) 4.8 Absolute Lymphs (auto) 2.61 Total Counted Neutrophils % (Manual) Band Neutrophils % Lymphocytes % (Manual) Monocytes % (Manual) Eosinophils % (Manual) Basophils % (Manual) Metamyelocytes % Myelocytes % Promyelocytes % Blast Cells % Plasma Cell % (Manual) Other Cells % Nucleated RBC % 0 Nucleated RBCs/100 WBC Differential Comment Diff Path Review Hypersegmented Neuts Atypical Lymphocytes Reactive Lymphocytes Smudge Cells Toxic Granulation Toxic Vacuolation Dohle Bodies Mindy Rods Platelet Estimate Plt Morphology Comment RBC Morphology Polychromasia Hypochromasia Basophilic Stippling Anisocytosis Microcytosis Macrocytosis Spherocytes Sickle Cells Target Cells Tear Drop Cells Ovalocytes Stomatocytes Ornelas-Foreman Bodies Exeland Cells Bite Cells Crenated Cell Acanthocytes (Spur) Rouleaux Schistocytes Sodium 139 Potassium 3.6 Chloride 106 Carbon Dioxide 26.0 Anion Gap 7 BUN 16 Creatinine 0.77 Estim Creat Clear Calc 118.84 Est GFR (MDRD) Af Amer 117 Est GFR (MDRD) Non-Af 97 BUN/Creatinine Ratio 20.8 H Glucose 97 Calcium 9.7 Serum , Qual NEGATIVE Urine Color Urine Clarity Urine pH Ur Specific Holton Urine Protein Urine Glucose (UA) Urine Ketones Urine Occult Blood Urine Nitrite Urine Bilirubin Urine Urobilinogen Ur Leukocyte Esterase Urine RBC Urine WBC Ur Squamous Epith Cells Urine Bacteria Urine Mucus Radiography Diagnostic Testing: Clinical Impression(s) from Imaging Studies Lumbar Spine MRI 11/02/23 19:35 IMPRESSION: Unchanged small posterior disc herniations L4-5 and L5-S1 without significant central spinal canal or neural foraminal narrowing. Electronically Signed: Jason Go DO at 22:33 EDT , Discharge Plan Triage Chief Complaint: Back ED Provider: Aki Kenyon Dx/Rx/DC Orders Clinical Impression: Acute exacerbation of chronic low back pain, Lumbar back pain with radiculopathy affecting right lower extremity Instructions: ED Back Pain (Acute or Chronic), ED Chronic Pain, ED Sciatica Prescriptions: New tramadol 50 mg tablet 50 mg PO Q6H PRN (Reason: pain) Qty: 12 0RF No Action norethindrone (contraceptive) [Stephan] 0.35 mg tablet 0.35 mg PO QDAY Qty: 28 3RF tramadol 50 mg tablet 50 mg PO Q4H PRN PRN (Reason: Pain) 5 Days Qty: 20 0RF omeprazole 40 mg capsule,delayed release(DR/EC) See Rx Instructions .ROUTE .COMPLEX Qty: 90 0RF Dose Instruction: 40 MG ORALLY DAILY Rx Instructions: 40 MG ORALLY DAILY sertraline 100 mg tablet 100 mg PO DAILY Qty: 30 0RF Primary Care Provider: Ishmael Vu Referrals: Ishmael Vu MD [Primary Care Provider] - As soon as possible Disposition Disposition: Home, Self Care What to do if you have Problems For any increased pain, shortness of breath, bleeding, nausea or vomiting, chestpain, or any unexpected problems, contact your Primary Care Provider. Call [facility] ([phone]) or report to the closest Emergency Room. Call 911 if necessary. 11/02/232245 <Electronically signed by Aki Kenyon MD> Cosigner Signature (if applicable): CC: Dr. Ishmael Vu MD ~ Signed [facility] Work Phone: [phone] [phone] History of Present illness Narrative* Toni Vallejo MD - 10/10/2023 3:15 PM EDT Images from the original note were not included. [facility] [address] [place] [address] [address] [facility] [address] Dept: [phone] Dept Patient was seen today via Telehealth by agreement and consent. I used the following Telehealth technology: Audio capability only. Patient location: Patient Location: Home. The patient has been advised of the potential risks and limitations of this mode of treatment (including but not limited tothe absence of in-person examination) and has agreed to be treated in a remote fashion in spite of them. I spent 21 minutes on the phone with this patient in addition to imaging review. Any and all of the patient's/patient's family's questions on this issue have been answered and I have made no promises or guarantees to the patient. The patient has also been advised to contact this office for worsening conditions or problems, and seek emergency medical treatment and/or call 911 if the patient deems either necessary. The patient stated that they are currently in the [facility]. If the patient is a minor, permission has been obtained by the parent or guardian for the patient to receive medical care at this visit. Chief Complaint Patient presents with Follow-up MRI review Subjective Current symptoms: Low back pain radiating down the anterior right thigh Intermittent tinging, not since Tuesday Right leg weakness Urinary incontinence Changes since last visit: MRI Aggravating factors: standing and walking Alleviating Factors: Laying down Current Treatment: Ibuprofen/tylenol Tobacco Use: Low Risk (10/04/2023) Patient History Smoking Tobacco Use: Never Smokeless Tobacco Use: Never Passive Exposure: Not on file Objective This was a virtual visit appointment. No vitals or in person physical exam obtained. Labs Lab Results Component Value Date HGBA1C 5.1 07/28/2022 Lab Results Component Value Date CREATININE 0.65 07/28/2022 Imaging Images reviewed with patient today Lumbar MRI 10/06/23 Findings: Multiplanar multisequence high field strength MRI images were obtained through the lumbar spine preand post administration of intravenous gadolinium contrast. Five lumbar type vertebra are assumed for purposes of numbering on this examination. The lumbar spine is in normal overall alignment without evidence of spondylolisthesis. Postoperative changes of L5-S1 right-sided laminectomy. No abnormal postcontrast enhancement. L5-S1 intervertebral disc space narrowing, slightly increased compared to the prior exam. Additional new mild reactive endplate changes/edema, which are new compared to the prior exam. The remaining intervertebral discspaces are maintained. The remaining bone marrow signal intensity is preserved. The conus terminates at a normal L1 level. No abnormal signal is appreciated within the distal cord. T12-L1: No disc bulge or disc protrusion. No central spinal canal stenosis. No neural foraminal narrowing. L1-L2: No disc bulge or disc protrusion. No central spinal canal stenosis. No neural foraminal narrowing. L2-L3: No disc bulge or disc protrusion. No central spinal canal stenosis. No neural foraminal narrowing. L3-L4: No disc bulge or disc protrusion. No central spinal canal stenosis. No neural foraminal narrowing. L4-L5: No disc bulge or disc protrusion. No central spinal canal stenosis. No neural foraminal narrowing. L5-S1: Asymmetric to the right, there is a tiny disc osteophyte complex, new compared to the prior exam, which abuts the exiting nerve root of the slightly narrowed right lateral recess. Otherwise the central canal and neural foramina are patent. IMPRESSION: Impression: 1. At L5-S1, there is a new tiny disc osteophyte complex asymmetric to the right which abuts the exiting nerve root of the slightly narrowed right lateral recess. 2. L5-S1 intervertebral disc space narrowing, slightly increased compared to the prior exam. Additional new mild reactive endplate changes/edema, which are new compared to the prior exam. All documented radiology studies listed above were individually reviewed, interpreted (agree with radiology report unless noted below) and discussed with the patient during today's office visit. Lumbar MRI reviewed which does not reveal any high-grade stenosis. Assessment 23-year-old female with lower back pain and radiculitis Plan MRI reviewed, see above. No high-grade compression. Unsure of the symptom etiology of the patient. We reviewed options with respect oral medication, injections and spinal cord stimulator. She would like to retrial gabapentin to see how her symptoms improve, which I think is reasonable. Prescriptionsent to her pharmacy. Electronically signed by Toni Vallejo MD 10/10/2023 at 3:38 PM Please note that portions of this note may have been completed with voice recognition software. Documentation reviewed prior to signing but minor errors in import customer service manager may have occurred. documented in this [facility]03-12-2024 History of Present illness Narrative* Fide Lewis, BODY PIERCER - 10/04/2023 9:00 AM EDT Images from the original note were not included. [facility] [address] [facility] [address] Dept: [phone] Dept Pamela [place]oz[place] 2000 [id number] 10/04/2023 Problem List: MIS Right L5-S1 Laminectomy DOS 09/14/22; Dr. Vallejo Lumbar pain Lumbar radiculopathy, right Urinary incontinence Diagnoses: (M54.50) Lumbar pain (M54.16) Lumbar radiculopathy (R32) Urinary incontinence, unspecified type Chief Complaint Patient presents with Follow-up Back Pain Leg Pain HPI: Pamela is a 23 y.o. female who is here today for: right leg pain Current symptoms: Low back pain radiating down the anterior right thigh Intermittent tinging, not since Tuesday Right leg weakness Urinary incontinence Changes since last visit: Worsening right leg pain and swelling started a few weeks ago, went to [facility] ED 09/28/23; no injury/activity known Has not done PT Aggravating factors: standing and walking Alleviating Factors: Laying down Current Treatment: Ibuprofen/tylenol Review of Systems Musculoskeletal: Positive for arthralgias, back pain, gait problem and myalgias. Neurological: Positive for weakness and numbness. Allergies Allergen Reactions Codeine Hives Dilaudid [Hydromorphone] hives Morphine Hives and Itching Oxycodone-Acetaminophen Hives Red Dye Hives Current Outpatient Medications Medication Sig Dispense Refill gabapentin (Neurontin) 300 MG capsule Take 1 capsule (300 mg) by mouth 3 times daily. 90 capsule 0 methocarbamol (Robaxin) 750 MG tablet Take 1 tablet (750 mg) by mouth Nightly. (Patient not taking:Reported on 02/23/2023) 30 tablet 0 methylPREDNISolone (Medrol Dospak) 4 MG tablets Take by mouth as directed by package instructions (Patient not taking: Reported on 02/23/2023) 21 tablet 0 omeprazole (PriLOSEC) [address] capsule Take 40 mg by mouth daily. predniSONE (Deltasone) 20 MG tablet Take 40 mg by mouth daily. sertraline (Zoloft) 100 MG tablet Take 100 mg by mouth daily. No current facility-administered medications for this visit. Past Medical History: Diagnosis Date Anxiety Depression Epilepsy (HCC) Seizures (HCC) Past Surgical History: Procedure Laterality Date [...] No family history on file. Physical Exam: There were no vitals taken for this visit. SPINE/EXTREMITY: General: Patient is in no apparent distress. Gait is slightly antalgic, nonassisted. She is able togo up on her toes and back on her heels in a standing position. Mild tenderness to palpation of lumbar spine. Posterior incision well-healed. Lower Extremity Motor: HF Q TA EHL Peroneals GSC Right 4+ 5 5 5 5 5 Left 5 5 5 5 5 5 Lower extremity sensation to light touch: L2 L3 L4 L5 S1 Right Intact Decreased Intact Intact Intact Left Intact Intact Intact Intact Intact Lower extremity reflexes: Patellar Achilles Right 1+ 1+ Left 1+ 1+ Straight leg raise: Right Negative Left Negative Misc: Clonus Right None Left None Hip exam: Bilateral hip range of motion is full and symmetric without pain. Radiographic findings: Radiographs: Lumbar Spine: Date: 10/04/23 Views: 4 views (ap/lat/flex/ext) Findings: There is no aortic calcification noted. The bilateral hip joint spaces are observed with no significant degenerative changes noted. The bilateral SI joints are also observed with no significant degenerative changes noted. Mild dextroscoliosis. There is no loss of lumbar lordosis. There are five non rib- bearing lumbar vertebrae. Vertebral body heights maintained throughout the lumbar spine. There is no acute fracture or bony abnormality noted. Mild degenerative disc disease. There are mild spondylitic changes and facet arthropathy noted. There is no listhesis noted on flexion/extension radiographs. Postoperative MRI reviewed which does not reveal any residual neurologic compression. Mild L5/S1 degenerative disc disease. Lab Review: No labs were reviewed/no labs were available for review this visit. IMPRESSION: See problem list above. Pamela is a 23 y.o. female presenting with low back pain, urinary incontinence. The patient reports that her low back pain intensified acutely approximately 3 weeks ago without causative incident. At that time, she developed worsening right lower extremity radicular symptoms. The patient also reports experiencing urinary incontinence. The patient went to [facility] on 09/28/23 for evaluation and was treated and released. Today, the patient continues to report having right anterior thigh numbness and tingling and low back pain. She also reports having continued worsening urinary incontinence. When asked if she told the emergency room staff at [facility] that she was experiencing urinary incontinence on 09/28/23 the patient states yes she did. When asked if they obtained a lumbar spine MRI because of this, both the patient and her mother said no due to lack of staffing at the hospital. Per the patient and her mother, the patient was advised to schedule follow-up visit with our office for this reason. She denies having any saddle paresthesia, worsening balance, worsening hand dexterity or hand strength issues. The patient is status post MIS right L5- S1 Laminectomy DOS: 09/14/22; Dr. Vallejo. We independently reviewed her imaging from today which revealed mild degenerative disc disease and mild lumbar spondylosis. Her reports of urinary incontinence are very concerning. Because of this, Ifeel it is imperative for the patient to have a stat lumbar MRI with and without contrast to evaluate for nerve compression and possible cauda equina. The patient will follow-up with Dr. Vallejo for MRI review and to discuss treatment options including injection therapy or possible surgery. PLAN: Stat Lumbar MRI W WO contrast - will call with results Electronically signed by Fide Lewis NP 10/04/2023 at 9:42 AM Dictated using [employer] Version 2.4 Proof read however unrecognized voice recognition errors may have occurred documented in this [facility]03-12-2024 Instructions* Patient Instructions* Bibiana Waters - 10/04/2023 9:00 AM EDT We will call you with MRI time/date/location once approved and scheduled. Dr. Vallejo will call youwith the results. documented in this [facility]03-11-2024 Telephone encounter Note* Telephone Encounter - Fide Lewis NP - 10/03/2023 11:41 AM EDT We can discuss this at her appointment tomorrow. [facility] [id number] Miscellaneous Notes* Telephone Encounter - Fide Lewis NP - 10/03/2023 11:41 AM EDT We can discuss this at her appointment tomorrow. * Telephone Encounter - Aiad Macias RN - 09/30/2023 5:16 PM EST S patient calling, swelling bruising and pain at laminectomy site B over a year ago A Had laminectomy last year. States 2 days ago she developed pain, swelling and bruising near surgical site. Pain is severe. Not relieved by tramadol. Can barely walk R Advised ED today. Patient was going to wait until next week but I strongly advised based off her symptoms to go to [facility] or [facility] today. Patient unsure if she will be going at this time. A patient calling, Reason for Disposition [1] SEVERE back pain (e.g., excruciating, unable to do any normal activities) AND [2] not improved 2 hours after pain medicine Protocols used: Back [id number]-AS documented in this [facility]03-08-2024 Telephone encounter Note* Telephone Encounter - Aida Macias RN - 09/30/2023 5:16 PM EST S patient calling, swelling bruising and pain at laminectomy site B over a year ago A Had laminectomy last year. States 2 days ago she developed pain, swelling and bruising near surgical site. Pain is severe. Not relieved by tramadol. Can barely walk R Advised ED today. Patient was going to wait until next week but I strongly advised based off her symptoms to go to [facility] or [facility] today. Patient unsure if she will be going at this time. A patient calling, Reason for Disposition [1] SEVERE back pain (e.g., excruciating, unable to do any normal activities) AND [2] not improved 2 hours after pain medicine Protocols used: Back [id number] [facility] [id number] Discharge summary Author Babak Whitaker [facility] September 28, 2023 10:51pm Note Date/Time September 28, 2023 9:08 pm [facility] Medical Records Department [address] [place] [address] Emergency Department Summary 09/28/23 MR#: [id number] Acct: [id number] Name: PAMELA ALEGRIA Rep #:[id number] : 2000 23 From: Babak Whitaker MD PCP: Dr. Ishmael Vu MD Status:R EG ER Location: ED ADDENDUM by B[employer] Student Joan Ryan on 09/28/[address] abdomen and pelvis negative for renal calculi. However did show L4-L5 and L5- S1 disc protrusion with mild narrowing of the spinal canal. On repeat exam by Dr. Whitaker patient denies incontinence of bowel or bladder. Strength in lower extremities normal. Patient to be discharged home with tramadol. She hasbeen instructed to follow-up with her spinal surgeon at [facility] and mayneed repeat MRI. Patient has also been instructed to return to the ED for bowelor bladder incontinence, weakness, or increased pain. Patient verbalizes understanding and to be discharged home. 09/28/23 2248<Electronically signed by Jona Ryan RN> Cosigner Signature (if applicable): cc: Dr. Ishmael Vu MD; Dr. Babak Whitaker MD ~* Signed HPI <Joan Ryan RN - Last Filed: 09/28/23 22:16> History of Present Illness Chief Complaint: Flank Pain Informant: patient Onset/Context/Timing Onset: Days (5) Timing: Intermittent Quality: Burning Location: Right abdomen, right flank Current Severity: 8/10 Maximum Severity: 8/10 Associated Symptoms Associated Symptoms: Nausea and vomiting Narrative Narrative: Patient is a 23-year-old female who presents to the ED for chest wall burning inthe mid abdomen and right flank pain radiating down her buttock and right leg x 5 days. Patient also reports nausea and vomiting beginning tonight. Patient reports prior history of sciatic pain. However she reports this pain is different. She last took Motrin at 3:30 PM today without relief. She has no history of kidney stones. No family history of kidney stones. She does report a back surgery 09/14/2022. She reports only urinating small amounts. However this is chronic. She denies recent surgeries or recent travel. Prior similar symptoms: No Recent Illness/Hospitalization: No PFSH <Joan Ryan RN - Last Filed: 09/28/23 22:16> PFSH Medical History Abdominal discomfort Abdominal pain Acute exacerbation of chronic low back pain Anxiety Anxiety and depression Back problem Change in bowel habit Depression Epilepsy Flu vaccine need Gastroenteritis GERD (gastroesophageal reflux disease) Headache HTN (hypertension) Insomnia Irritable bowel syndrome with diarrhea Nausea and vomiting Seizures Home Medications omeprazole 40 mg capsule,delayed release See Rx Instructions .Route .COMPLEX #90caps 09/02/23 [Rx Last Taken Unknown] sertraline 100 mg tablet 100 mg PO DAILY #30 tabs 09/21/23 [Rx Last Taken Unknown] norethindrone (contraceptive) 0.35 mg tablet (Stephan) 0.35 mg PO QDAY #28 tabs 09/27/23 [Rx Last Taken Unknown] Allergy/AdvReac Type Severity Reaction Status Date / Time Iodinated Contrast Media Allergy Intermediate HIVES, Verified 09/28/23 20:11 SHORT OF BREATH codeine phosphate Allergy Hives Verified 09/28/23 20:11 [From Tylenol-Codeine #3] morphine Allergy Itching Verified 09/28/23 20:11 oxycodone HCl [From Percocet] Allergy Hives Verified 09/28/23 20:11 red dye Allergy Hives Verified 09/28/23 20:11 hydromorphone [From Dilaudid] AdvReac Itching Verified 09/28/23 20:11 Family History Mother Endometriosis Depression with anxiety Grandfather Diabetes Aunt Diabetes Grandfather Cancer unknown CA, passed of Unknown Hypertension High cholesterol Father Depression with anxiety Bipolar 1 disorder Surgical History H/O laparoscopy History of laminectomy Social History Smoking Status: Unknown if ever smoked Electronic Cigarette Use: with nicotine alcohol intake: never substance use type: does not use caffeine: Yes what type of physical activity do you participate in: none seatbelt use: always do you feel safe at home: Yes additional social history: [facility] ROS <Joan Ryan RN - Last Filed: 09/28/23 22:16> ROS ED Constitutional Constitutional ED: Denies chills, fever(s) or sweats Eyes Eyes: Denies change in vision ENT ENT ED: Denies rhinorrhea or sore throat Cardiovascular Cardiovascular: Denies chest pain, orthopnea or palpitations Respiratory/Chest Respiratory/Chest: Denies cough, dyspnea or orthopnea Gastrointestinal Gastrointestinal: Reports abdominal pain, nausea and vomiting; Denies constipation or diarrhea Genitourinary Genitourinary ED: Reports LMP (females 10-50) Details: Comment: (08/29/2023); Denies dysuria, hematuria or urinary frequency Musculoskeletal Musculoskeletal: Reports back pain; Denies arthralgias, myalgias or neck pain Integumentary Denies abscess, Abrasions or rash Neurologic Neurologic: Denies headache(s), paresthesias or weakness Psychiatric Psychiatric: Denies anxiety or depression Hematologic/Lymphatic Hematologic/Lymphatic: Reports systems reviewed and no addt'l complaints, exceptas documented EXAM <Joan Ryan RN - Last Filed: 09/28/23 22:16> Physical Exam Narrative Exam Narrative: Patient awake and alert. Const Vital Signs: 09/28/23 20:09 Temperature 98.2 F Temperature Source Temporal Pulse Rate 100 Respiratory Rate 18 Blood Pressure 128/90 H Blood Pressure Mean 102 Pulse Ox 97 Oxygen Delivery Method Room Air Positive well nourished and well developed General Appearance ED: well developed and NAD HEENT Reports moist mucous membranes Negative for trauma Eyes PERRL and EOMs intact bilaterally Neck no lymphadenopathy, supple and no JVD Chest Wall inspection of chest normal and palpation of chest normal Resp normal respiratory effort and clear to auscultation bilaterally Auscultation: Negative for rales, rhonchi or wheezes Cardio regular rate, regular rhythm, S1 normal heart sound and S2 normal heart sound GI normal to inspection, nondistended, normoactive bowel sounds and non-tender Auscultation: normoactive bowel sounds Palpation: soft Back/Spine General Back: CVA tenderness right Extremity normal to inspection General Extremety ED: Negative for edema or tenderness General Extremity: Negative for edema Neuro oriented x3 Sensorium / Orientation: alert Motor Exam: strength 5/5 throughout Psych mental status grossly normal Skin no rashes or lesions noted <Dr. Babak Whitaker MD - Last Filed: 09/28/23 21:25> Physical Exam Const Vital Signs: 09/28/23 20:09 Temperature 98.2 F Temperature Source Temporal Pulse Rate 100 Respiratory Rate 18 Blood Pressure 128/90 H Blood Pressure Mean 102 Pulse Ox 97 Oxygen Delivery Method Room Air [facility] <Joan Ryan RN - Last Filed: 09/28/23 22:16> [facility] Narrative Medical decision making narrative: IV line initiated. Labwork obtained to evaluate for leukocytosis, anemia, and electrolyte derangement. Urinalysis obtained to evaluate for infection/hematuria. CT abdomen/pelvis ordered to evaluate for kidney stones. Patient given Toradol and Zofran for pain. I have personally performed a face to face assessment of the patient and have reviewed the JEREL Note. I performed a substantive portion of the visit including all aspects of the following. My hernandez findings include: History is 23-year-old female history of chronic back pain with prior lumbar back surgery for disc. Denies any fall injury or trauma. No fever. For 4 daysshe has had lower back pain and in the last 24 hours or so start radiating to her right flank and suprapubic area. She also has had some nausea and vomiting which she thinks is secondary to pain. Denies any fever. No hematuria. No dysuria. No history of kidney stones. No abdominal trauma. No falls. No leg weakness or numbness. No radiation of the pain to her legs. Exam is [23-year-old female. Vital signs are stable. She is afebrile. She does not look septic or toxic. H EENT exam unremarkable. Mytrex members. Neck nontender. Lungs clear to auscultation bilaterally. Heart regular rhythm rate about 95 no murmur. Chest wall and ribs nontender. Abdomen is soft, nontender, nondistended normal bowel sounds no peritoneal signs. No McBurney's point or right upper quadrant tenderness. No hernia or mass. No obstruction. Back she has reproducible lumbar and right CVA tenderness. There is no ecchymosis or bruising. There is no redness or warmth. There is no signs of trauma. Moving all 4 extremities. Neurovascularly intact. 5 out of 5 cook jelly strength. Normal dorsi and plantarflexion. Negative straight leg raise bilaterally. No cauda equina. Normal medial thigh sensation. Neurologically she is awake and alert with no focal motor deficits.] Medical Decision Making [patient with back and flank pain. Clinically think this may be musculoskeletal back pain. Versus kidney stone or other etiologies. CAT scan and labs are being obtained. She will be treated with Toradol for pain. Zofran for nausea.] Other additions or changes: [None] History & Record Review Discussion w/independent historian: Patient and Family Lab Data Labs: Laboratory Results - last 24 hr 09/28/23 09/28/23 20:00 20:23 WBC 12.2 H RBC 4.15 L Hgb 12.6 Hct 37.3 MCV 89.9 MCH 30.4 MCHC 33.8 RDW Std Deviation 50.2 H RDW Coeff of Danis 15.3 H Plt Count 298 MPV 10.4 Immature Gran % (Auto) 0.500 Neut % (Auto) 67.8 Lymph % (Auto) 23.6 Bartholomew % (Auto) 7.0 Eos % (Auto) 0.7 Baso % (Auto) 0.4 Absolute Neuts (auto) 8.3 H Absolute Lymphs (auto) 2.88 Nucleated RBC % 0 Sodium 138 Potassium 3.7 Chloride 106 Carbon Dioxide 25.0 Anion Gap 7 BUN 14 Creatinine 0.94 Estim Creat Clear Calc 96.77 Est GFR (MDRD) Af Amer 93 Est GFR (MDRD) Non-Af 77 BUN/Creatinine Ratio 15.0 Glucose 100 Calcium 9.5 Serum , Qual NEGATIVE Urine Color Yellow Urine Clarity Clear Urine pH 6.0 Ur Specific Holton 1.025 Urine Protein 30 H Urine Glucose (UA) Normal Urine Ketones 5 H Urine Occult Blood Negative Urine Nitrite Negative Urine Bilirubin Negative Urine Urobilinogen 1 H Ur Leukocyte Esterase 25 H Urine RBC 0 SEEN Urine WBC 0-5 SEEN Ur Squamous Epith Cells 5-10 SEEN Calcium Oxalate Crystal 1+ Urine Bacteria 1+ Urine Mucus 0 SEEN Differential Diagnosis Abdominal Pain: UTI Differential Diagnosis: Renal calculi Management Discussion w/another healthcare provider: Other (Dr. Whitaker, ED provider.) Treatment and Re-Evaluation :: Lab work and imaging reviewed. CBC significant for elevated white blood cell count of 12.2 with normal neutrophils 67.8. Hemoglobin 12.6. Chemistry unremarkable. Urinalysis negative for UTI. CT abdomen pelvis negative for renal calculi. Upon reevaluation, patient reports right flank/lower back pain decreased to 7/10. Patient declined fentanyl. <Dr. Babak Whitaker MD - Last Filed: 09/28/23 21:25> [facility] Narrative Medical decision making narrative: IV line initiated. Labwork obtained to evaluate for leukocytosis, anemia, and electrolyte derangement. Urinalysis obtained to evaluate for infection/hematuria. CT abdomen/pelvis ordered to evaluate for kidney stones. Patient given Toradol and Zofran for pain. I have personally performed a face to face assessment of the patient and have reviewed the JEREL Note. I performed a substantive portion of the visit including all aspects of the following. My hernandez findings include: History is 23-year-old female history of chronic back pain with prior lumbar back surgery for disc. Denies any fall injury or trauma. No fever. For 4 days she has had lower back pain and in the last 24 hours or so start radiating to her right flank and suprapubic area. She also has had some nausea and vomiting which she thinks is secondary to pain. Denies any fever. No hematuria. No dysuria. No history of kidney stones. No abdominal trauma. No falls. No leg weakness or numbness. No radiation of the pain to her legs. Exam is [23-year-old female. Vital signs are stable. She is afebrile. She does not look septic or toxic. H EENT exam unremarkable. Mytrex members. Neck nontender. Lungs clear to auscultation bilaterally. Heart regular rhythm rate about 95 no murmur. Chest wall and ribs nontender. Abdomen is soft, nontender, nondistended normal bowel sounds no peritoneal signs. No McBurney's point or right upper quadrant tenderness. No hernia or mass. No obstruction. Back she has reproducible lumbar and right CVA tenderness. There is no ecchymosis or bruising. There is no redness or warmth. There is no signs of trauma. Moving all 4 extremities. Neurovascularly intact. 5 out of 5 cook jelly strength. Normal dorsi and plantarflexion. Negative straight leg raise bilaterally. No cauda equina. Normal medial thigh sensation. Neurologically she is awake and alert with no focal motor deficits.] Medical Decision Making [patient with back and flank pain. Clinically think this may be musculoskeletal back pain. Versus kidney stone or other etiologies. CAT scan and labs are being obtained. She will be treated with Toradol for pain. Zofran for nausea.] Other additions or changes: [None] Lab Data Attestation: I reviewed the patient's lab results. Lab results narrative: CBC shows a white count of 12.2. H&H 12.6 and 37. Platelets 298. Chemistries show a gap of 7. Normal BUN and creatinine. Glucose of 100. Serum test negative. UA shows 0 red cells. 0 white cells. 1+ bacteria. It is contaminated with 5-10 epithelial cells. No nitrates. It is basically negative. Labs: Laboratory Results - last 24 hr 09/28/23 09/28/23 20:00 20:23 WBC 12.2 H RBC 4.15 L Hgb 12.6 Hct 37.3 MCV 89.9 MCH 30.4 MCHC 33.8 RDW Std Deviation 50.2 H RDW Coeff of Danis 15.3 H Plt Count 298 MPV 10.4 Immature Gran % (Auto) 0.500 Neut % (Auto) 67.8 Lymph % (Auto) 23.6 Bartholomew % (Auto) 7.0 Eos % (Auto) 0.7 Baso % (Auto) 0.4 Absolute Neuts (auto) 8.3 H Absolute Lymphs (auto) 2.88 Nucleated RBC % 0 Sodium 138 Potassium 3.7 Chloride 106 Carbon Dioxide 25.0 Anion Gap 7 BUN 14 Creatinine 0.94 Estim Creat Clear Calc 96.77 Est GFR (MDRD) Af Amer 93 Est GFR (MDRD) Non-Af 77 BUN/Creatinine Ratio 15.0 Glucose 100 Calcium 9.5 Serum , Qual NEGATIVE Urine Color Yellow Urine Clarity Clear Urine pH 6.0 Ur Specific Holton 1.025 Urine Protein 30 H Urine Glucose (UA) Normal Urine Ketones 5 H Urine Occult Blood Negative Urine Nitrite Negative Urine Bilirubin Negative Urine Urobilinogen 1 H Ur Leukocyte Esterase 25 H Urine RBC 0 SEEN Urine WBC 0-5 SEEN Ur Squamous Epith Cells 5-10 SEEN Calcium Oxalate Crystal 1+ Urine Bacteria 1+ Urine Mucus 0 SEEN Discharge Plan Triage Chief Complaint: Flank Pain ED Provider: Babak Whitaker Dx/Rx/DC Orders Prescriptions: No Action norethindrone (contraceptive) [Stephan] 0.35 mg tablet 0.35 mg PO QDAY Qty: 28 3RF omeprazole 40 mg capsule,delayed release(DR/EC) See Rx Instructions .ROUTE .COMPLEX Qty: 90 0RF Dose Instruction: 40 MG ORALLY DAILY Rx Instructions: 40 MG ORALLY DAILY sertraline 100 mg tablet 100 mg PO DAILY Qty: 30 0RF Primary Care Provider: Ishmael Vu Referrals: Ishmael Vu MD [Primary Care Provider] - What to do if you have Problems For any increased pain, shortness of breath, bleeding, nausea or vomiting, chestpain, or any unexpected problems, contact your Primary Care Provider. Call [facility] ([phone]) or report to the closest Emergency Room. Call 911 if necessary. 09/28/232221 <Electronically signed by Babak Whitaker MD> Cosigner Signature (if applicable): CC: Dr. Ishmael Vu MD; Dr. Babak Whitaker MD ~ Signed [facility] Work Phone: 1(666) 235-565201-03-2024 NoteHNO ID: [id number] Author: Dickson Buchanan APRN.SENIOR COMMISSARY AGENT Service: ? Author Type: Nurse Practitioner Type: [...] and oriented to person, (more content not included)...[facility]08-29-2023 Discharge summary Author Allen Hdz [facility] March 22, 2023 11:18am Note Date/Time March 22, 2023 11 :17am [facility] Physical Therapy [facility] [address] [place] [address]. [address] [place] [address] / REHABILITATION SERVICES DISCHARGE SUMMARY MR#: [id number] Acct: [id number] Name: PAMELA ALEGRIA Rep #: [id number] : 2000 23 From: Cert. ADRIANA VidalT, OCS Referring Dr.: OUT OF TOWN DOCTOR Status: REG R Insurance: [facility] S[employer]URANCE Patient Information Patient Information: PAMELA ALEGRIA was seen in my office for initial evaluation on 10/22/22. The following Plan of Care was established for this patient: POC Established Initial Frequency: 2x /Week Initial Duration: 6 Weeks Anticipated Interventions Patient/Client Instruction: Educate patient on: Condition and Plan of Care For the Purpose of:: To decrease pain, To increase ROM, To improve muscle performance and motor function, To improve ability to perform ADL's, To increasetolerance to activity/condition/position, To improve ability of physical actionsfor home/community/work/leisure, To improve gait and locomotor functions, To improve health of tissue, To decrease soft tissue restriction, To increase flexibility/ROM, To improve endurance, To prevent re-injury and To improve tolerance to ADL's Therapeutic Exercise to Include: Strength training, Endurance training, Balance training, Body mechanics, Postural training, Flexibilty training and Dynamic Lumbar Stabilization For the Purpose of:: To decrease pain, To increase ROM, To improve muscle performance and motor function, To improve ability to perform ADL's, To increasetolerance to activity/condition/position, To improve ability of physical actionsfor home/community/work/leisure, To improve health of tissue, To decrease soft tissue restriction, To increase flexibility/ROM, To improve balance, To prevent re- injury and To improve tolerance to ADL's Last Seen Last Seen: This patient was last seen in our office . Pertinent comments regarding their Physical therapy will appear below: Patient was seen for PT for lumbar surgery for DLS and postural ex's thus is d/c due to not returning and cont to c/o pain At this point I will be discontinuing this patient from physical therapy. I would be happy to see this patient again in the future if found appropriate by the physician. Thank you! Allen Hdz PT, Cert ALFA, OCS Balance/Gait/Functional tests Balance/Special Test Scores Oswestry Low Back Score: 35 <Electronically signed by Shila Mann PT. ALFA, MOE> 03/22/23 1118 CC: Dr. Ishmael Vu MD; FIDE LEWIS ~ LALI Signed [facility] Work Phone: 1(899) 560-338308-02-2023 History of Present illness Narrative* Toni Vallejo MD - 02/23/2023 10:45 AM EDT Images from the original note were not included. [facility] [address] [facility] [address] Dept: [phone] Dept Pamela Alegria 2000 [id number] 02/23/2023 Problem List: MIS Right L5-S1 Laminectomy DOS 09/14/22 Lumbar radiculitis, improving Axial lower back pain, improving Diagnoses: (M54.50) Lumbar pain Chief Complaint Patient presents with Leg Pain Follow-up Back Pain HPI: Pamela is a 23 y.o. female who is [...] (750 mg) by mouth Nightly. (Patient not taking:Reported on 02/23/2023) 30 tablet 0 methylPREDNISolone (Medrol [...] this visit. IMPRESSION: See problem list above. Pamela is a 23 y.o. female presenting with improving lower back pain status post MIS right L5-S1 Laminectomy DOS: 09/14/22. Since I last saw her, the patient is improving with respect to back and leg pain. I did elementary school counselor herthat it is very important that she pursue a physical therapy program and core and hip strengthening. She voices understanding. We will see her back on an as-needed basis. PLAN: Physical therapy No follow-ups on file. Electronically signed by Toni Vallejo MD 02/23/2023 at 12:28 PM Dictated using [employer] Version 2.4 Proof read however unrecognized voice recognition errors may have occurred documented in this encounterSMercy Health Lorain [id number] NoteProcedure request denied, denial scanned into patients chart.[facility]07-27-2023 Telephone encounter Note* Telephone Encounter - Chrissie Yen MA - 02/17/2023 12:19 PM EDT Procedure request denied, denial scanned into patients chart. [facility] [id number] Miscellaneous Notes* Telephone Encounter - Chrissie Yen MA - 02/17/2023 12:19 PM EDT Procedure request denied, denial scanned into patients chart. * Telephone Encounter - Chrissie Yen MA - 01/12/2023 3:39 PM EDT Submitted PA request to pts insurance, office will contact patient to schedule if approved * Telephone Encounter - Gino Grant MD - 01/11/2023 5:41 PM EDT Can offer fast-track RIGHT S1 TFESI. * Telephone Encounter - Fide Lewis NP - 01/10/2023 10:02 AM EDT Noted * Telephone Encounter - Bibiana Waters - 01/10/2023 9:12 AM EDT Fast-track Right S1 TFESI Referral entered Please send to provider for review * Telephone Encounter - Fide Lewis NP - 01/10/2023 9:00 AM EDT Patient called and notified that her MRI showed that she had normal scar tissue at the right S1 nerve. She is willing to try a right S1 TFESI as recommended by Dr. Vallejo. Please place an order for this for me to sign. documented in this [facility]07-19-2023 NoteHNO ID: [id number] Author: Stephie Carmona APRN.SENIOR COMMISSARY AGENT Service: Neurology Adult Epilepsy Author Type: Nurse Practitioner Type: Progress Notes Filed: 02/09/2023 12:34 PM Note Text: Attestation signed by Silvia Tse MD at 02/09/2023 1:41 PM EPILEPSY CENTER ATTENDING NOTE [facility] Epilepsy Monitoring Unit Progress Note Date of Service: February 09, 2023 [facility] [place], [facility] BY [facility] STAFF PHYSICIAN NOTE OF PERSONAL INVOLVEMENT IN CARE Patient was interviewed and examined by me on separate attending rounds this morning with nurse practitioner, Stephie Carmona CNP. I have reviewed the history, exam, diagnosis, and plan obtained and documented by the nurse practitioner as above. I performed my own ykyw-mf-tmip assessment and personally participated in the hernandez [...] treatment plan. Silvia Tse MD Staff Physician [facility] Epilepsy Center Personal Pager and Cell Office: [phone] For urgent EEG review, call the Epilepsy Continuous Monitoring Unit (ECMU) at [facility] [phone] or [phone]. For overnight issues, 7pm to 7am, [place] [phone]. For in house night coverage of emergencies, call [facility]S pager [phone]. NEUROLOGY EPILEPSY MONITORING UNIT (EMU) PROGRESS NOTE NIGHT AND WEEKEND COVERAGE: After 5 pm and over the weekends, please page [phone] to contact the epilepsy provider director of flight operations Subjective No complaints. No seizures overnight. HOME [...] standing. SEIZURE DETECTION SOFTWARE ON: Yes ? bulk mail technician has been notified: Yes ? multiskill operator has been notified: Yes EXAM: Mental Status: [...] at the end of (more content not included)...[facility] 02-09-2023 NoteHNO ID: [id number] Author: Angela Vargas RN Service: Care Management Author Type: Registered Nurse Type: Red Mgt Progress Note Filed: 02/09/2023 9:04 AM Note Text: CARE MANAGEMENT PROGRESS NOTE SERVICE DATE: 02/09/2023 SERVICE TIME: 9:03 AM LOS: 2 days Post-Acute Discharge Planning Patient Goal(s): General wellness, Be able to go home [place] of Choice Explained: Discharge Planning Participant(s): Patient Patient/Family Comments: Anticipated # of Days Until Discharge: Transport at Discharge: Transportation Arrangements: Car Destination: Home Needs Prior to Discharge: Needs Prior to Discharge: To Be Determined, Discharge Prescriptions Post-Acute Discharge Plan: Patient from home with louis and his mother. 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 Patient drove self to [facility]. Will drive self at discharge. Planned admission. No CM needs at this time. Will follow for transitional care planning. SIGNATURE: Angela Vargas RN PATIENT NAME: Pamela Alegria DATE: February 09, 2023 TIME: 9:03 AM PAGER/CONTACT #: [phone]-2023 NoteHNO ID: [id number] Author: Angela Vargas RN Service: Care Management Author Type: Registered Nurse Type: Care Mgt Initial Assessment Filed: 02/08/2023 11:07 AM Note Text: CARE MANAGEMENT: ASSESSMENT AND DISCHARGE PLAN SERVICE DATE: February 08, 2023 SERVICE TIME: 11:05 AM PCP: Ishmael Vu MD Primary Contact: Extended Emergency Contact Information Primary Emergency Contact: Lilia Lee Relation: Friend Secondary Emergency Contact: Levi Lee Mobile Relation: Significant other Admission Status: Inpatient Insurance Provider: [employer] MEDICAID Discharge Planning requested by: Per Department Practice Potential Transition Plans No Services Indicated;Home Advance Directives Current Advance Directive: None Lens Hardener Attempted to Assist with AD Completion: Yes Action: Education Provided Current Living Arrangements and Support Lives with: Spouse/significant other, Other person(s) Louis and mother in law Type of Residence: Private Residence (House) Does the patient have to climb stairs at home?: Yes;stairs outside the home;stairs within the home Support: Family members, Friends/neighbors, Spouse/significant other How do you manage to accomplish the following: Independent: Ambulation;Bathe/Shower;Dress;Meals/Meal Prep;Going to the bathroom;Medication Management;Transportation to appointments/community Current Services/Equipment Current Post-Acute Service(s): None Discharge Planning Patient Goal(s): General wellness, Be able to go home [place] of Choice Explained: [place] of Choice Given: No Reason Not Given: [...] Plan: Spoke with patient. Patient lives with louis and mother in law in a 2 story home. 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 +Driving. -DME. Unemployed, filed for SSI but not yet approved. Uses [facility] for scripts. Drove self to hospital and will drive self at discharge. +PCP +RX -DME No CM needs at this time. Will follow for transitional care planning. SIGNATURE: Angela Vargas RN PATIENT NAME: Pamela Alegria DATE: February 08, 2023 TIME: 11:05 AM CONTACT #: [phone] NoteHNO ID: [id number] Author: Stephie Carmona APRN.SENIOR COMMISSARY AGENT Service: Neurology Adult Epilepsy Author Type: Nurse Practitioner Type: Progress Notes Filed: 02/08/2023 11:10 AM Note Text: Attestation signed by Silvia Tse MD at 02/08/2023 1:44 PM EPILEPSY CENTER ATTENDING NOTE [facility] Epilepsy Monitoring Unit Progress Note Date of Service: February 08, 2023 [facility] [place], [facility] ST[facility] PHYSICIAN NOTE OF PERSONAL INVOLVEMENT IN CARE Patient was interviewed and examined by me on separate attending rounds this morning with nurse practitioner, Stephie Carmona CNP. I have reviewed the history, exam, diagnosis, and plan obtained and documented by the nurse practitioner as above. I performed my own bbkt-hj-qmim assessment and personally participated in the hernandez [...] treatment plan. Silvia Tse MD Staff Physician [facility] Epilepsy Center Personal Pager and Cell Office: [phone] For urgent EEG review, call the Epilepsy Continuous Monitoring Unit (ECMU) at [facility] [phone] or [phone]. For overnight issues, 7pm [place] 7am[place] [phone]. For in house night coverage of emergencies, call [facility] pager [phone]. NEUROLOGY EPILEPSY MONITORING UNIT (EMU) PROGRESS NOTE NIGHT AND WEEKEND COVERAGE: After 5 pm and over the weekends, please page [phone] to contact the epilepsy provider director of flight operations Subjective No complaints. No seizures overnight. HOME [...] Remains standing. SEIZURE DETECTION SOFTWARE ON: Yes bulk mail technician has been notified: Yes multiskill operator has been notified: Yes EXAM: Mental Status: [...] of shaking of unclear (more content not included)...[facility]07-10-2023 Miscellaneous Notes* Telephone Encounter - Tati Oviedo RN - 01/31/2023 3:17 PM EDT Spoke with the patient and reiterated the purpose for EMU admission versus home EEG. Patient has opted to continue with EMU. TATI OVIEDO RN * Telephone Encounter - Tati Oviedo RN - 01/28/2023 10:40 AM EDT Spoke with the patient and explained recommendation. She understands and will call back with decision. TATI OVIEDO RN * Telephone Encounter - Stephie Carmona APRN.SOUTH - 01/27/2023 4:43 PM EDT VEEG is still strongly preferred is at all possible because we can decrease and stop meds which we can not do at home. If it is absolutely not possible then home EEG is an option Stephie Carmona APRN.SOUTH * Telephone Encounter - Tati Oviedo RN - 01/27/2023 4:25 PM EDT Patient is requesting home VEEG instead of EMU admission. TATI OVIEDO RN documented in this [facility]06-30-2023 Miscellaneous Notes* Telephone Encounter - Aida Carvajal Sec - 01/21/2023 5:04 PM EDT Patient can be reached at [phone] (home). * Telephone Encounter - Stephie Carmona APRN.CNP - 01/21/2023 4:57 PM EDT Agree with recommendation Stephie Carmona APRN.SOUTH * Telephone Encounter - Tati Oviedo RN - 01/21/2023 4:42 PM EDT Called patient and left [facility] regarding Tramadol and side effects. Patient needs to call her PCP or prescriber. Left number for return call. TATI OVIEDO RN * Telephone Encounter - Aida Carvajal Sec - 01/21/2023 3:33 PM EDT General call : Full name of person calling: Pamela Alegria Relationship to patient: self Phone # : [phone] Reason for call: Is EMU admit necessary if muscle spasms are caused by Tramadol.? Patient believes Tramadol is causing the muscle spasms at night. Please advise. Patient of Dr. Ryan documented in this [facility]06-29-2023 NoteHNO ID: [id number] Author: Benny Ryan MD Service: ? Author Type: Physician Type: Progress Notes Filed: 01/20/2023 6:44 PM Note Text: [facility] Neurological [place] [facility] Patient Name: Pamela ZUNIGA Date of : 2000 Referring Provider: Taz Mackenzie [address] [facility] [address] INITIAL EPILEPSY CLINIC NOTE 01/20/2023 10:00 AM CHIEF COMPLAINT: New Patient and Epilepsy HISTORY OF PRESENT ILLNESS Ms. Alegria is a 22 year old right-handed female seen in [facility] for initial consultation. There is no one accompanying the patient during today's visit. Handedness: right-handed Age of onset: 15 years Seizure History and Evolution Ms. Pamela Alegria is a 22 year old Right handed woman with history of headaches, unexplained falls, back pain s/p L5 S1 laminectomy for ?severe radiculopathy and epilepsy. She was previously seen by Dr. Velarde , last seen in 2019. 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 She felt heart rate [...] of optic neuritis based on evaluation at [facility] (Dr. Mackenzie). 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 [facility] Instructions* Patient Instructions* Benny Ryan MD - 01/20/2023 10:27 AM EDT We will admit you to EMU for clarifying diagnosis. We will attempt to change Depakote to a different medication when you are in the hospital. Avoid Tramadol and Wellbutrin due to increased risk of seizures. Seizure precautions - No driving in the [facility] until seizure free for 6 months - No operating heavy machines - No swimming without supervision or bathing in a bathtub due to risk of drowning in the event of aseizure. Patient may shower. - Avoid unsafe heights, including ladders, due to risk of fall-related injury in the event of a seizure. - Seizure precipitating factors discussed including not taking seizure medications as prescribed, stress, excessive caffeine intake, energy drinks, alcohol, sleep deprivation or any identifiable seizure precipitating factor. Benny Ryan MD Associate Staff, Epilepsy [facility] January 20, 2023 Office phone: [phone] documented in this encounterAultman [facility]06-29-2023 History of Present illness Narrative* Benny Ryan MD - 01/20/2023 10:16 AM EDT [facility] Patient Name: Pamela ZUNIGA Date of : 2000 Referring Provider: Taz Mackenzie [address] [place], [place] [address]mallory Cuello [address] [address] INITIAL EPILEPSY CLINIC NOTE 01/20/2023 10:00 AM CHIEF COMPLAINT: New Patient and Epilepsy HISTORY OF PRESENT ILLNESS Ms. Alegria is a 22 year old right-handed female seen in [facility] Out[facility] for initial consultation. There is no one accompanying the patient during today's visit. Handedness: right-handed Age of onset: 15 years Seizure History and Evolution Ms. Pamela Alegria is a 22 year old Right handed woman with history of headaches, unexplained falls, back pain s/p L5 S1 laminectomy for ?severe radiculopathy and epilepsy. She was previously seen by Dr. Velarde , last seen in 2019. 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 She felt heart rate drop and lost consciousness with shaking. Per chart review, she was seen in 2016 in [facility] for falls and leg pain. [...] so it was switched to Depakote. She cutthe dose to half on her own due [...] of optic neuritis based on evaluation at [facility] (Dr. Mackenzie). 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 Unanswered Developmental Delay Unanswered Family history [...] 11 Fibromyalgia a freshman in high school II (idiopathic intracranial hypertension) Lumbar herniated disc Migraines age 4 Papilledema PAST SURGICAL HISTORY Procedure Laterality Date PAST SURGICAL HISTORY OF laparoscopy FAMILY HISTORY Problem Relation Age of Onset other (obese) Sister Fibromyalgia Maternal Grandmother other (carpal tunnel) Maternal Grandmother other (acid reflux) Maternal Grandmother Cancer Maternal Grandfather Cancer Paternal Grandmother Cancer Paternal Grandfather Multiple Sclerosis No Family History SOCIAL HISTORY: -Lives in [place], [place] -Patient lives alone? -Vocation: -Education: -Cigarette, alcohol, substance use: -Functional status: -Patient driving? Review of Systems All other systems reviewed and are negative. VITAL SIGNS: BP 120/82 Pulse 64 Resp 18 Ht 160 cm (5' 3) Wt 93 kg (205 lb) LMP (LMP Unknown) No BMI 36.31 kg/m General Examination: She is alone. General: Awake, alert, interactive, no acute distress, good nutritional status, normal development,well-kept Patient is wearing an abdominal binder Neurological Exam Mental Status Alert, fully oriented, attentive, with normal cognition, memory, speech and affect. Cranial Nerves Face symmetric. Hearing intact with conversational speech. Motor Examination and Coordination Motor examination with normal bulk. Normal coordination. No adventitious movements or significant tremor. Gait Antalgic gait IMPRESSION: Ms. Pamela Alegria is a 22 year old Right [...] Did not tolerate Zonisamide in the past (felthigh). Discussed switching to lamictal when in the [...] Seizure precautions - No driving in the state [facility] until seizure free for 6 months - No operating heavy machines - No swimming without supervision or bathing in a bathtub due to risk of drowning in the event of aseizure. Patient may shower. - Avoid unsafe heights, [...] to see the patient completing clinical documentation [id number] patient care obtaining and/or reviewing separately obtained history counseling and educating the patient/family/caregiver performing a medically appropriate examination ordering medications, tests, or procedures Benny Ryan MD cc: Primary Care Physician: Ishmael Vu MD [address] [place] [address] Referring: Taz Mackenzie [address] [place] [address] Patient: Ms. Pamela Alegria [address] [place] [id number] Please route this encounter to the EMU Scheduling Pool (P EMU) or PMU Scheduling Pool (P PMU) through LOS & Follow up PHASE 1.0 AND 1.5 ORDER SYNOPSIS Patient: Pamela Alegria ([id number]) Best contact number: [phone] Insurance: Payor: [facility] MEDICA[employer] / Plan: [employer] MEDICAID / Product Type: Medicaid / Scheduling Team: Please call for adult patients: Kalie Montenegro ([phone]) Stephie Ghosh ([phone]) Heidy Irwin ([phone]) Yovana Powell([phone]) Keiry Roe([phone]) Please call for pediatric patients: Yovana Powell ([phone]) Kalie Montenegro ([phone]) Stephie Ghosh ([phone]) Heidy Irwin ([phone]),Keiry Roe([phone]) 01/20/2023 Admission Type EMU Adult Number of Days requested 5 Location [place] (Adults only) Admit Priority Routine PURPOSE 01/20/2023 Patient Being Considered for Epilepsy Surgery? No VEEG recommended to assess seizure burden, address new & concerning syymptom- sign complex, and/or clarify syndromic epilepsy diagnosis? Yes 01/20/2023 Sphenoidal monitoring No Electrode placement Standard Appointments and Tests EPIL EEG LEAD PLACEMENT EPIL VEEG ADMIT TO EMU/PMU Consultations None Please route this encounter to the EMU Scheduling pool (P EMU) or PMU Scheduling pool (P PMU) through LOS & Follow up Scheduling coordinators: For all VNS patients being scheduled for JAYDON, please schedule VNS off/on office visits. documented in this encounterA[facility]06-21-2023 Telephone encounter Note * Telephone Encounter - Chrissie Yen MA - 01/12/2023 3:39 PM EDT Submitted PA request to pts insurance, office will contact patient to schedule if approved [id number] Miscellaneous Notes* Telephone Encounter - Chrissie Yen MA - 01/12/2023 3:39 PM EDT Submitted PA request to pts insurance, office will contact patient to schedule if approved * Telephone Encounter - Gino Grant MD - 01/11/2023 5:41 PM EDT Can offer fast-track RIGHT S1 TFESI. * Telephone Encounter - Fide Lewis NP - 01/10/2023 10:02 AM EDT Noted * Telephone Encounter - Bibiana Waters - 01/10/2023 9:12 AM EDT Fast-track Right S1 TFESI Referral entered Please send to provider for review * Telephone Encounter - Fide Lewis NP - 01/10/2023 9:00 AM EDT Patient called and notified that her MRI showed that she had normal scar tissue at the right S1 nerve. She is willing to try a right S1 TFESI as recommended by Dr. Vallejo. Please place an order for this for me to sign. documented in this [facility]06-20-2023 Telephone encounter Note* Telephone Encounter - Gino Grant MD - 01/11/2023 5:41 PM EDT Can offer fast-track RIGHT S1 TFESI. [facility] [place] Phone: [phone] Miscellaneous Notes* Telephone Encounter - Gino Grant MD - 01/11/2023 5:41 PM EDT Can offer fast-track RIGHT S1 TFESI. * Telephone Encounter - Fide Lewis NP - 01/10/2023 10:02 AM EDT Noted * Telephone Encounter - Bibiana Waters - 01/10/2023 9:12 AM EDT Fast-track Right S1 TFESI Referral entered Please send to provider for review * Telephone Encounter - Fide Lewis NP - 01/10/2023 9:00 AM EDT Patient called and notified that her MRI showed that she had normal scar tissue at the right S1 nerve. She is willing to try a right S1 TFESI as recommended by Dr. Vallejo. Please place an order for this for me to sign. documented in this encounterSMercy Health Lorain [id number] NoteFast-track Right S1 TFESI Referral entered Please send to provider for reviewSMcLaren [facility]06-19-2023 Telephone encounter Note* Telephone Encounter - Fide Lewis NP - 01/10/2023 10:02 AM EDT Noted [facility] [id number] Telephone encounter Note* Telephone Encounter - Bibiana Waters - 01/10/2023 9:12 AM EDT Fast-track Right S1 TFESI Referral entered Please send to provider for review [facility] HospitalLfqdbm20-06-3090 Telephone encounter Note* Telephone Encounter - Fide Lewis NP - 01/10/2023 9:00 AM EDT Patient called and notified that her MRI showed that she had normal scar tissue at the right S1 nerve. She is willing to try a right S1 TFESI as recommended by Dr. Vallejo. Please place an order for this for me to sign. [facility] [id number] NoteHNO ID: [id number] Author: Taz Sky MD Service: ? Author Type: Physician Type: Progress Notes Filed: 12/24/2022 8:52 AM Note Text: ??This is a telemedicine visit that was performed using the [employer]usoft virtual platform with the originating site at [...] visit. Either the patient or their legal major account representative has been informed of the risks and benefits of -- and alternatives to -- treatment through a remote evaluation and consents to proceed with the evaluation remotely. Pamela Alegria is a 22 year old woman [...] advised for any acute onset neurological deficits. Taz Sky MD 8:47 AM 12/24/2022 FOR ADMINISTRATIVE PURPOSES ONLY: My impression of this case is based upon an assessment of the the patient's subacute on chronic problems listed above that pose a threat to neurologic function. 32 minutes were spent on total patient care on the day of service that includes zqbv-[id number] time and non. The majority of this time was spent counseling and coordinating care. I communicated with Dr. Vu regarding the management of this patient. The assessment and plan were discussed extensively with the patient who was amenable and voiced understanding.[facility]06-02-[facility] History of Present illness Narrative* Taz Sky MD - 12/24/2022 7:02 AM EDT ??This is a telemedicine visit that was performed using the Edusoft virtual platform with the originating site at my work office and the distant site at the patient's home. Verbal consent to participatein a combined audio and video visit was [...] licensure. The patient's identity and physical location wereverified at the time of this visit. Either the patient or their legal major account representative has been informed of the risks and benefits of -- and alternatives to -- treatment through a remote evaluation andconsents to proceed with the evaluation remotely. Pamela Alegria is a 22 year old woman [...] the left), and bilateral dyschromatopsia. Given the history,exam, and prior work up, the next step was a lumbar puncture to check the opening pressure, therebyeither confirming or rejecting the diagnosis of intracranial hypertension. 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 Taz Sky MD 8:47 AM 12/24/2022 FOR ADMINISTRATIVE PURPOSES ONLY: My impression of this case is based upon an assessment of the the patient's subacute on chronic problems listed above that pose a threat to neurologic function. 32 minutes were spent on total patientcare on the day of service that includes crcw-su-unuq time and non. The majority of this time was spent counseling and coordinating care. I communicated with Dr. Vu regarding the management of this patient. The assessment and plan were discussed extensively with the patient who was amenable andvoiced understanding. documented in this encounterA[facility]05-31-2023 Miscellaneous Notes* Discharge Instr - Nursing - Bibiana Manning RN - 12/22/2022 11:12 AM EDT Pt educated on importance of rest when going home. Pt advised to call MD if she develops a headacheor any issues with the LP site * [facility] - RT Libia(R) - 12/22/2022 10:52 AM EDT Radiology Service Progress Note PATIENT NAME: Pamela Alegria DATE OF SERVICE: December 22, 2022 TIME: 10:52 AM PATIENT IDENTITY VERIFICATION COMPLETED USING TWO (2) IDENTIFIERS: Name and Date of confirmedby patient verbally and Name and Date of [...] 22, 2022 10:52 AM documented in this encounterAultman [facility]05-31-2023 Surgical operation note* Brief Op Note - Emmanuel Velazco APRN.CNP - 12/22/2022 10:15 AM EDT BRIEF OPERATIVE / PROCEDURE NOTE LOG ID: [id number] SURGERY/PROCEDURE DATE: 12/22/2022 INCISION/PROCEDURE START TIME: 954 INCISION CLOSE/PROCEDURE END TIME: 1010 SURGEON(S)/PROCEDURALIST(S) AND GROCERY DELIVERER(S): Surgeon(s) and Role: * Emmanuel Velazco APRN.CNP - Primary No Additional Staff SURGERY/PROCEDURE(S): Fluoroscopy guided diagnostic and therapeutic lumbar puncture with local anesthetic ANESTHESIA: Local FINDINGS: Access with 15 cm spinal needle at L4/5 midline, OP 23, CP <15, 11 ml clear CSF removed in 4 tubes ESTIMATED BLOOD LOSS: 0 ml SPECIMENS: 11 ml in 4 tubes COMPLICATIONS: None PRE-OP/PRE-PROCEDURE DIAGNOSIS: Headache, papilledema POST-OP/POST-PROCEDURE DIAGNOSIS: Same as Preop SIGNATURE: Emmanuel Velazco APRN.CNP PATIENT NAME: Pamela Alegria DATE: December 22, 2022 TIME: 10:16 AM [facility] Telephone encounter Note * Telephone Encounter - Karan Metz - 12/21/2022 9:12 AM EDT Done and approved [id number] Miscellaneous Notes* Telephone Encounter - Karan Metz - 12/21/2022 9:12 AM EDT Done and approved * Telephone Encounter - Karan Metz - 12/17/2022 9:35 AM EDT MRI is in pending to deny. Please call for P2P. * Telephone Encounter - Alana Rodriguez - 12/14/2022 10:25 AM EDT Called and informed patient of message from Dr. Vallejo and nurse practitioner: Please let Pamela know that we need the MRI before any other action is taken. Thank you She voiced understanding. * Telephone Encounter - Fernanda Downing - 12/13/2022 12:20 PM EDT Name of caller: Pamela Contact phone number: [phone] Relationship to Patient: Self Provider: Genevieve Practice: Ortho Chief Complaint/Reason for Call: Pt called in stating she finished her medrol dose pack yesterday, 12/12/22 and her pain is not any better. She stated it is actually a bit worse and radiating down herrt leg. Please Advise on what pt can do. Best time of day caller can be reached: any Patient advised that office/PCP has 24-48 business hours to return their call: No documented in this [facility]05-26-2023 Telephone encounter Note* Telephone Encounter - Karan Metz - 12/17/2022 9:35 AM EDT MRI is in pending to deny. Please call for P2P. [facility] [id number] NoteHNO ID: [id number] Author: Aretha Denis PA-C Service: ? Author Type: Physician Unit Educator Type: Progress Notes Filed: 12/16/2022 10:49 AM Note Text: Neurology Outpatient Clinic Date: December 16, 2022 Patient Name: Pamela Alegria Referring physician: No referring provider defined for this encounter. Primary physician: Ishmael Vu ([facility]) [address] [place] [address] Reason for Evaluation: Headaches Subjective HPI Pamela Alegria is a 22 year old right-handed female who presents for evaluation of headache. Dr. Ishmael Vu MD is the PCP. Chart review: Has LP scheduled 12/22/22 for papilledema found by ophthalmology. MRI and MRV normal in 09/16, ophtho 11/29/22 with optic edema. Patient has epilepsy appt in January. Patient already seen neurology in August, at the [facility] for possible optic neuritis. MRI of the [...] vomiting or dizziness. Patient did see an fuse cutter who saw papilledema, referred to the emergency department. She did have MRV of the brain and MRI of the orbits performed in August, did ask what the cause of this imaging was, patient was unsure. However, imaging did not show any abnormality and no signs of IIH. On chart review, patient did see Dr. Mackenzie at the [facility] who ordered these imaging studies due to [...] and dyspnea. CARDIOVASCULAR: Ne (more content not included)...[facility] 12-14-2022 Telephone encounter Note* Telephone Encounter - Alana Rodriguez - 12/14/2022 10:25 AM EDT Called and informed patient of message from Dr. Vallejo and nurse practitioner: Please let Pamela know that we need the MRI before any other action is taken. Thank you She voiced understanding. [id number] Telephone encounter Note* Telephone Encounter - Fernanda Downing - 12/13/2022 12:20 PM EDT Name of caller: Pamela Contact phone number: [phone] Relationship to Patient: Self Provider: Genevieve Practice: Ortho Chief Complaint/Reason for Call: Pt called in stating she finished her medrol dose pack yesterday, 12/12/22 and her pain is not any better. She stated it is actually a bit worse and radiating down herrt leg. Please Advise on what pt can do. Best time of day caller can be reached: any Patient advised that office/PCP has 24-48 business hours to return their call: No [id number] NoteHNO ID: [id number] Author: Taz Sky MD Service: ? Author Type: Physician Type: Progress Notes Filed: 11/29/2022 3:49 PM Note Text: Pamela Alegria is a 22 year old woman [...] the lumbar puncture with interventional radiology at: [phone]. I will then plan to review the [...] advised for any acute onset neurological deficits. Taz Sky MD 3:45 PM 11/29/2022 FOR ADMINISTRATIVE PURPOSES ONLY: My impression of this case is based upon an assessment of the the patient's subacute on chronic problems listed above that pose a threat to visual and neurologic function. 65 minutes were spent on total patient care on the day of service that includes both ghbv-fp-dvon and zgh-kluc-cj-face time. This time was separate from any [...] the patient who was amenable and voiced understanding.[facility] 11-29-2022 History of Present illness Narrative* Taz kSy MD - 11/29/2022 11:16 AM EDT Pamela Alegria is a 22 year old woman [...] at times with her headaches, otherwise without peripheralvision loss, transient visual obscurations, pulsatile tinnitus, or [...] schedule the lumbar puncture with interventional radiology at:[phone]. I will then plan to review the results of this work up with the patient, as well as the next steps,via virtual visit. I will plan to see her back via virtual visit following lumbar puncture, unless concerns arise in the interim, for which she was provided my contact information and encouraged to reach out. ER presentation is otherwise advised for any acute onset neurological deficits. Taz Sky MD 3:45 PM 11/29/2022 FOR ADMINISTRATIVE PURPOSES ONLY: My impression of this case is based upon an assessment of the the patient's subacute on chronic problems listed above that pose a threat to visual and neurologic function. 65 minutes were spent on total patient care on the day of service that includes both bbfs-zl-gzkl and yun-edpc-qd-face time. This time was separate from any of my time spent completing and interpreting the ancillary testing (such as OCT, fundus photos, visual rivera) and sensorimotor exam, if applicable. This time was broken down into: 5 minutes reviewing the patient record before the visit, 20 minutes performing a medically appropriate neuro- ophthalmic history and exam (excluding time spent on [...] amenable and voiced understanding. documented in this [facility]03-[facility] History of Present illness Narrative* Toni Vallejo MD - 10/06/2022 9:45 AM EDT Images from the original note were not included. [facility] [address] [facility] [address] Dept: [phone] Dept Pamela [place] 2000 [id number] 10/06/2022 Problem List: MIS Right L5-S1 Laminectomy DOS 09/14/22 Lumbar radiculopathy- right lower extremity Diagnoses: (M54.16) Lumbar radiculopathy (M54.50) Lumbar pain (Z98.890) S/P spinal surgery Chief Complaint Patient presents with Post-op HPI: Pamela is a 22 y.o. female who is here today for: IPO L5-S1 Laminectomy DOS: 09/14/22, Dr. Vallejo. Current symptoms: Pain is located in the across the lower back or radiating to right leg(s) that is radiating Posterior. Numbness/tingling: right leg radiating down to the foot . Weakness: right leg giving . Abnormal bowel movements: reports Signs of infection: denies Changes since surgery: Unable to determine if there is improvement in pre op symptoms New symptoms to include: none Aggravating factors: standing and walking Alleviating Factors: Laying down Current Treatment: L5-S1 Laminectomy Post-op meds: Tramadol , medrol dose pack Homecare: No LSO: Yes Bone growth stimulator: No Review of Systems Allergies Allergen Reactions Codeine Hives Dilaudid [Hydromorphone] [...] to exceed 2 doses in 24 hours. medroxyPROGESTERone (Provera) 10 MG tablet TAKE 1 TABLET BY MOUTH EVERY DAY FOR 10 DAYS omeprazole (PriLOSEC) [address] capsule Take 40 mg by mouth daily. predniSONE (Deltasone) 20 MG tablet Take 40 mg by mouth daily. sertraline (Zoloft) 100 MG tablet Take 100 mg by mouth daily. traMADol (Ultram) 50 MG tablet Take 25 mg by mouth in the morning and 25 mg in the evening. gabapentin (Neurontin) 300 MG capsule Take 1 capsule (300 mg) by mouth 3 times daily. 90 capsule 0 meloxicam (Mobic) 15 MG tablet Take 1 tablet (15 mg) by mouth daily. 30 tablet 0 methocarbamol (Robaxin) 750 MG tablet Take 1 tablet (750 mg) by mouth Nightly. 30 tablet 0 No current facility-administered medications for this visit. Past Medical History: Diagnosis Date Anxiety Depression Epilepsy (HCC) Seizures (CMS/HCC) (HCC) Past Surgical History: Procedure Laterality Date LAMINECTOMY AND MICRODISCECTOMY LUMBAR SPINE N/A 09/14/2022 L5/S1 LAPAROSCOPY ABDOMEN DIAGNOSTIC (HISTORICAL) Social History Socioeconomic History Marital status: Significant Other Spouse name: Not on file Number of [...] file Intimate Partner Violence: Not At Risk Fear of Current or Ex-Partner: No Emotionally Abused: No Physically Abused: No Sexually Abused: No Housing Stability: Not on file No family history on file. Physical Exam: Ht 5' 3 (1.6 m) Wt 192 lb (87.1 kg) BMI 34.01 kg/m SPINE/EXTREMITY: General: Patient in no apparent distress. Gait is slightly antalgic and she is using a rollator walker. Midline lumbar incision is well approximated without erythema, drainage, or dehiscence. Lower Extremity Motor: HF Q TA EHL Peroneals GSC Right 4 4 4 4 4 4 Left 4 4 5 5 4 5 Lower extremity sensation to light touch: L2 L3 L4 L5 S1 Right Intact Intact Intact Intact Diminished Left Intact Intact Intact Intact Intact Hip exam: Bilateral hip range of motion is full and symmetric without pain. Radiographic findings: Radiographs: Lumbar Spine: No new radiographs taken today Lab Review: No labs were reviewed/no labs were available for review this visit. IMPRESSION: See problem list above. Pamela is a 22 y.o. female presenting for IPO L5-S1 Laminectomy DOS: 09/14/22. Overall, the patient is doing well since her surgery. She does report improvement in her pre-operative symptoms. Pamela does admit to having new pain in her right leg and low back. It was explainedto her at length that this is normal after her type of surgery and will improve with time. She was e ncouraged to slowly increase her activity and an order for PT was placed. She will also try meloxicam and gabapentin to help with her pain. Her midline lumbar incision is without signs of infection. Restrictions were reviewed with Pamela including no lifting anything heavier than 10-15lbs and no repetitive bending, lifting, twisting. She will follow up for 3 month post-op visit or sooner with anyquestions or concerns. The risks and benefits of Gabapentin/Lyrica were discussed with the patient in detail. These include but are not limited to dizziness, drowsiness, loss of coordination, memory loss, blurry vision, tremors, changes in mood and/or fever. If any of these side effects are experienced I advised the patient to discontinue the medication and contact both myself and their primary care physician. The risks and appropriate dosing of NSAIDs (ie Meloxicam, Naproxen, Ibuprofen, etc) were discussed with the patient in detail. These include but are not limited to cardiovascular risk, renal toxicity, stomach irritation/refulx and/or peptic ulcer disease. If any of these side effects are experienced I advised the patient to discontinue the medication and contact both myself and their primary carephysician. PLAN: Mobic 15mg daily Gabapentin 300mg TID PT- intrinsic core focused Advised patient of post-op restrictions No lifting greater than 10-15 lbs Avoidence of deep/repetitive bending, lifting, or twisting Patient able to begin physical therapy 6 weeks post-op Lower extremity strengthening/body awareness Follow-up for 3 month post-op with Genevieve No follow-ups on file. Electronically signed by Toni Vallejo MD 10/06/2022 at 1:03 PM Dictated using [employer] Version 2.4 Proof read however unrecognized voice recognition errors may have occurred documented in this [facility]03-03-2023 Telephone encounter Note* Telephone Encounter - Fide Lewis NP - 09/24/2022 8:36 AM EST Please see TE from this morning [facility] [employer] Work Phone: 1(220) 303-168503-03-2023 Miscellaneous Notes* Telephone Encounter - Fide Lewis NP - 09/24/2022 8:36 AM EST Please see TE from this morning * Telephone Encounter - Fernanda Downing - 09/24/2022 7:49 AM EST Pamela called in stating she went to ED last night at [facility] and they were not able to do an MRI due to not having equipment. Pt wanting to know if Dr Vallejo could just order one? Please Advise. * Telephone Encounter - iFde Lewis NP - 09/23/2022 2:22 PM EST That is fine. I called the patient and let her know * Telephone Encounter - Odilia Gilman - 09/23/2022 2:07 PM EST Pt called in stating she does not have anyone to drive her in to [facility] ER. Pt states she can go to [facility]. Please advise. * Telephone Encounter - Fide Lewis NP - 09/23/2022 1:21 PM EST I called spoke with the patient to discuss her below symptoms. She reports that she did have numbness and weakness in her right leg prior to surgery but was truly unable to tell if it was worsening or not. She does admit to falling in the last couple of days stating that her leg just doesn't reactand gives out. Patient reports bringing this issue up in her ER visit yesterday but was advised bythe ER staff to call our office with this issue. I advised her that she should go to the ER for evaluation and possible MRI. She verbalized understanding. Dr. Vallejo was also notified. * Telephone Encounter - Sahara Barrera RN - 09/23/2022 10:56 AM EST 1. L5 right laminectomy, partial facetectomy, partial foraminotomy, with decompression of cauda equina and nerve roots. 2. S1 right laminectomy, partial facetectomy, partial foraminotomy, with decompression of cauda equina and nerve roots. DOS: 09/14/22 Spoke with patient. She voiced concerns of having increased numbness and weakness in her right leg.States she has fallen Tuesday, Tuesday and Tuesday. States she is trying to be more active in the house by walking around. Encouraged her to have someone walk with her if she is feeling weak to ensure her safety. Reassured her that it will take time for the numbness and weakness to improve. She verbalized understanding but was concerned because she feels it is getting worse. Also discussed her ER visit from yesterday for the wound check. Encouraged her to call the office with any questions or concerns. ER confirmed the incision was healing with no signs of hemorrhage or infection. Explained we are happy to help her here so she can avoid the ER if possible. She verbalized understanding * Telephone Encounter - Jacquelyn Wilburn - 09/23/2022 10:53 AM EST Name of Caller: Pamela Relationship to Patient: self Symptoms/Concerns: Pt went to ED for wound check. Pt stated she is still having weakness in her Rt leg. Provider: Dr Vallejo Practice Name: [facility] documented in this [facility]03-03-2023 Telephone encounter Note* Telephone Encounter - Fide Lewis NP - 09/24/2022 8:29 AM EST I called the patient this morning and she states she is doing a little better. Reports that it feels like a pulling sensation in the back of her right leg. Reports that she can go up on her toes.At this point, we will hold off on ordering the MRI. It was explained the pulling sensation and pain is a normal after her type of surgery and will take several weeks to resolve. She verbalized understanding. She will be placed on another steroid pack and was instructed to call the office back withany questions or concerns. This was discussed with Dr. Vallejo and he agreed with the above POC. [facility] [id number] Miscellaneous Notes* Telephone Encounter - Fide Lewis NP - 09/24/2022 8:29 AM EST I called the patient this morning and she states she is doing a little better. Reports that it feels like a pulling sensation in the back of her right leg. Reports that she can go up on her toes.At this point, we will hold off on ordering the MRI. It was explained the pulling sensation and pain is a normal after her type of surgery and will take several weeks to resolve. She verbalized understanding. She will be placed on another steroid pack and was instructed to call the office back withany questions or concerns. This was discussed with Dr. Vallejo and he agreed with the above POC. documented in this encounterSMercy Health Lorain [id number] Telephone encounter Note* Telephone Encounter - Fernanda Downing - 09/24/2022 7:49 AM EST Pamela called in stating she went to ED last night at [facility] and they were not able to do an MRI due to not having equipment. Pt wanting to know if Dr Vallejo could just order one? Please Advise. [facility] [id number] Telephone encounter Note* Telephone Encounter - Fide Lewis NP - 09/23/2022 2:22 PM EST That is fine. I called the patient and let her know [employer] Work Phone: 1(354) 940-863403-02-2023 Miscellaneous Notes* Telephone Encounter - Fide Lewis NP - 09/23/2022 2:22 PM EST That is fine. I called the patient and let her know * Telephone Encounter - Odilia Gilman - 09/23/2022 2:07 PM EST Pt called in stating she does not have anyone to drive her in to [facility] ER. Pt states she can go to [facility]. Please advise. * Telephone Encounter - Fide Lewis NP - 09/23/2022 1:21 PM EST I called spoke with the patient to discuss her below symptoms. She reports that she did have numbness and weakness in her right leg prior to surgery but was truly unable to tell if it was worsening or not. She does admit to falling in the last couple of days stating that her leg just doesn't reactand gives out. Patient reports bringing this issue up in her ER visit yesterday but was advised bythe ER staff to call our office with this issue. I advised her that she should go to the ER for evaluation and possible MRI. She verbalized understanding. Dr. Vallejo was also notified. * Telephone Encounter - Sahara Barrera RN - 09/23/2022 10:56 AM EST 1. L5 right laminectomy, partial facetectomy, partial foraminotomy, with decompression of cauda equina and nerve roots. 2. S1 right laminectomy, partial facetectomy, partial foraminotomy, with decompression of cauda equina and nerve roots. DOS: 09/14/22 Spoke with patient. She voiced concerns of having increased numbness and weakness in her right leg.States she has fallen Tuesday, Tuesday and Tuesday. States she is trying to be more active in the house by walking around. Encouraged her to have someone walk with her if she is feeling weak to ensure her safety. Reassured her that it will take time for the numbness and weakness to improve. She verbalized understanding but was concerned because she feels it is getting worse. Also discussed her ER visit from yesterday for the wound check. Encouraged her to call the office with any questions or concerns. ER confirmed the incision was healing with no signs of hemorrhage or infection. Explained we are happy to help her here so she can avoid the ER if possible. She verbalized understanding * Telephone Encounter - Jacquelyn Wilburn - 09/23/2022 10:53 AM EST Name of Caller: Pamela Relationship to Patient: self Symptoms/Concerns: Pt went to ED for wound check. Pt stated she is still having weakness in her Rt leg. Provider: Dr Vallejo Practice Name: [facility] documented in this encounterSMercy Health Lorain [id number] Telephone encounter Note* Telephone Encounter - Odilia Gilman - 09/23/2022 2:07 PM EST Pt called in stating she does not have anyone to drive her in to [facility] ER. Pt states she can go to [facility]. Please advise. [facility] [id number] Telephone encounter Note* Telephone Encounter - Fide Lewis NP - 09/23/2022 1:21 PM EST I called spoke with the patient to discuss her below symptoms. She reports that she did have numbness and weakness in her right leg prior to surgery but was truly unable to tell if it was worsening or not. She does admit to falling in the last couple of days stating that her leg just doesn't reactand gives out. Patient reports bringing this issue up in her ER visit yesterday but was advised bythe ER staff to call our office with this issue. I advised her that she should go to the ER for evaluation and possible MRI. She verbalized understanding. Dr. Vallejo was also notified. . [facility] [id number] Telephone encounter Note* Telephone Encounter - Sahara Barrera RN - 09/23/2022 10:56 AM EST 1. L5 right laminectomy, partial facetectomy, partial foraminotomy, with decompression of cauda equina and nerve roots. 2. S1 right laminectomy, partial facetectomy, partial foraminotomy, with decompression of cauda equina and nerve roots. DOS: 09/14/22 Spoke with patient. She voiced concerns of having increased numbness and weakness in her right leg.States she has fallen Tuesday, Tuesday and Tuesday. States she is trying to be more active in the house by walking around. Encouraged her to have someone walk with her if she is feeling weak to ensure her safety. Reassured her that it will take time for the numbness and weakness to improve. She verbalized understanding but was concerned because she feels it is getting worse. Also discussed her ER visit from yesterday for the wound check. Encouraged her to call the office with any questions or concerns. ER confirmed the incision was healing with no signs of hemorrhage or infection. Explained we are happy to help her here so she can avoid the ER if possible. She verbalized understanding [facility] [id number] Telephone encounter Note* Telephone Encounter - Jacquelyn Wilbunr - 09/23/2022 10:53 AM EST Name of Caller: Pamela Relationship to Patient: self Symptoms/Concerns: Pt went to ED for wound check. Pt stated she is still having weakness in her Rt leg. Provider: Dr Vallejo Practice Name: [facility] [id number] Hospital Discharge instructions* Discharge Instructions* Jason Bernardo MD - 09/22/2022 1:05 PM EST Call your surgeon's office for further evaluation. Return to the ED if you develop fever or chills. documented in this [facility]03-01-2023 Emergency department Note* Lou Soto RN - 09/22/2022 1:01 PM EST Pt ambulatory to and from restroom independently. Lou Soto RN 09/22/22 1303 [facility] [id number] Emergency department Note* Lou Soto RN - 09/22/2022 1:01 PM EST Pt ambulatory to and from restroom independently. Lou Soto RN 09/22/22 1303 * Lou Soto RN - 09/22/2022 12:55 PM EST Pt ambulatory to ED4 with male visitor for wound check. Pt had lumbar surgery at [facility] on 09/15/22. She states that yesterday and today she noted bleeding to incision site, small amount yesterday and increasing today. Pt did not call her surgeon. She states that her visitor's mother advised she just come to the ED. Pt is A&Ox3, respirations even and unlabored, skin warm and dry, no distress noted. Pt wearing lumbar brace during triage. Pt was advised to remove brace to be ready for physician to examine site. Pt is taking Tramadol and states she took it at 2200 and again at 0400. Her pain is rated 6/10 at present. * Jason Bernardo MD - 09/22/2022 12:49 PM EST EMERGENCY DEPARTMENT ENCOUNTER Pt Name: Pamela Alegria Birthdate 2000 Date of evaluation: 09/22/2022 ED Provider: JASON BERNARDO MD CHIEF COMPLAINT Chief Complaint Patient presents with Wound Check Post-op Problem HISTORY OF PRESENT ILLNESS I wore appropriate PPE for the entirety of this encounter. HPI Pamela Alegria is a 22 y.o. female who presents to the emergency department complaining of bleeding from the postoperative wound. The patient had a laminectomy on 09/14/2022. She states that she has changed the dressing several times and there is been blood present. She has not contacted her surgeon's office. There has been no fever or chills. Nursing Notes were reviewed. Limitations to history: None Outside historians: None REVIEW OF SYSTEMS Review of Systems Constitutional: Negative for chills and fever. Musculoskeletal: Negative for gait problem and neck pain. Skin: Positive for wound. Neurological: Negative for weakness and numbness. PAST MEDICAL HISTORY Past Medical History: Diagnosis Date Anxiety Depression Epilepsy (HCC) Seizures (CMS/HCC) (HCC) SURGICAL HISTORY Past Surgical History: Procedure Laterality Date LAMINECTOMY AND MICRODISCECTOMY LUMBAR SPINE N/A 09/14/2022 L5/S1 LAPAROSCOPY ABDOMEN DIAGNOSTIC (HISTORICAL) CURRENT MEDICATIONS Previous Medications AMITRIPTYLINE (ELAVIL) 10 MG TABLET Take 10 mg by mouth. BUSPIRONE (BUSPAR) 7.5 MG TABLET Take 7.5 mg by mouth in the morning and 7.5 mg in the evening. CLONAZEPAM (KLONOPIN) 0.5 MG TABLET Take 1 tablet by mouth for seizures greater than 3 minutes or for 3 or more seizures in 8 hours. Not to exceed 2 doses in 24 hours. MEDROXYPROGESTERONE (PROVERA) 10 MG TABLET TAKE 1 TABLET BY MOUTH EVERY DAY FOR 10 DAYS METHOCARBAMOL (ROBAXIN) 750 MG TABLET Take 1 tablet (750 mg) by mouth Nightly. OMEPRAZOLE (PRILOSEC) [address] CAPSULE Take 40 mg by mouth daily. ONDANSETRON (ZOFRAN) 4 MG TABLET Take 1 tablet (4 mg) by mouth every 8 hours as needed for nausea or vomiting for up to 7 days. PREDNISONE (DELTASONE) 20 MG TABLET Take 40 mg by mouth daily. SERTRALINE (ZOLOFT) 100 MG TABLET Take 100 mg by mouth daily. ALLERGIES Codeine, Dilaudid [hydromorphone], Morphine, Oxycodone-acetaminophen, and Red dye FAMILY HISTORY No family history on file. SOCIAL HISTORY Social History Socioeconomic History Marital status: Significant Other Tobacco Use Smoking status: Never Smokeless tobacco: Never Vaping Use Vaping Use: Former Substances: Nicotine, 8 yrs, quit few months ago Substance and Sexual Activity Alcohol use: Yes Comment: occas Drug use: Never Social Determinants of Health Intimate Partner Violence: Not At Risk Fear of Current or Ex-Partner: No Emotionally Abused: No Physically Abused: No Sexually Abused: No SCREENINGS PHYSICAL EXAM ED Triage Vitals [09/22/22 1255] Temp Heart Rate Resp BP 36.5 C (97.7 F) 88 16 115/76 SpO2 Temp Source Heart Rate Source Patient Position 100 % Temporal -- -- BP Location FiO2 (%) -- -- Physical Exam Vitals and nursing note reviewed. Constitutional: General: She is not in acute distress. Appearance: She is obese. She is not ill-appearing or toxic-appearing. Comments: The patient is a young female, obese, found lying on a cart. She is in no acute distress. Pulmonary: Effort: Pulmonary effort is normal. No respiratory distress. Musculoskeletal: General: No tenderness, deformity or signs of injury. Skin: Capillary Refill: Capillary refill takes less than 2 seconds. Findings: Lesion present. No erythema or rash. Comments: The patient has a vertically oriented surgical incision over the lower lumbar spinous processes. The wound edges are well opposed. There is no erythema. There is no purulence. Patient has very small amount of minor blood present. There is no hemorrhage. Neurological: General: No focal deficit present. Mental Status: She is alert and oriented to person, place, and time. Psychiatric: Mood and Affect: Mood normal. DIAGNOSTIC RESULTS RADIOLOGY (Per Emergency Physician): Interpretation per the Radiologist below, if available at the time of this note: No orders to display EKG Interpretation: LABS: Labs Reviewed - No data to display All other labs were within normal range or not returned as of this dictation. EMERGENCY DEPARTMENT COURSE and DIFFERENTIAL DIAGNOSIS/MDM: Vitals: Vitals: 09/22/22 1255 BP: 115/76 Pulse: 88 Resp: 16 Temp: 36.5 C (97.7 F) TempSrc: Temporal SpO2: 100% Medications Administered in the ED: Medications - No data to display I JASON BERNARDO MD am the practice clinician of record. PROCEDURES: Unless otherwise noted below, none Procedures Differential Diagnosis Considerations: Differential diagnosis includes early wound infection, postoperative bleeding, normal healing. ED testing and evaluation will be obtained to help differentiate these diagnostic possibilities anddetermine the most likely cause. Sources of History: I evaluated other historical sources including previous outpatient records and admission records. ED Course: In the emergency department I initially evaluated the patient with a history and physical examination in order to determine diagnostic testing and therapeutic care. On the basis of this history and physical examination I believe the patient is having normal healing. There is no evidence of acute bleeding. There is no wound dehiscence. The patient is advised to follow-up with her orthopedic surgeon who did the surgery. Reassessment: The patient is discharged Consideration of Admission/Observation: I considered admission for this patient, however, at this time the patient appears to be stable. I do not believe that the patient would benefit from admission at this time. I believe the patient canfollow-up with the primary care physician. The patient is advised to return to the emergency department if symptoms change or worsen where admission may need to be considered at a another time. There is no evidence of wound infection or dehiscence. Independent Interpretation of Tests: I independently evaluated the results of the patient's diagnostic testing in the context of the patient's presentation. Diagnostic Tests Considered but not Performed: No diagnostic testing appeared to be indicated on the basis of history or physical examination. Prescription Medications Considered but not Prescribed: I considered the prescription and administration of narcotics for this patient's discomfort. However, at this time I do not believe that narcotics would be indicated. Chronic Conditions Affecting Care: None FINAL IMPRESSION 1. Postop check DISPOSITION Discharge 09/22/2022 01:04:53 PM PATIENT REFERRED TO: Ishmael Vu [address] [place] [id number] In 3 days DISCHARGE MEDICATIONS: New Prescriptions No medications on file (Comment: Please note this report has been produced using speech recognition software and may contain errors related to that system including errors in grammar, punctuation, and spelling, as well as words and phrases that may be inappropriate. If there are any questions or concerns please feel freeto contact the dictating provider for clarification.) JASON BERNARDO MD (electronically signed) Emergency Medicine Provider Jason Bernardo MD 09/22/22 1309 documented in this [facility]03-01-2023 Emergency department Triage note* Lou Soto RN - 09/22/2022 12:55 PM EST Pt ambulatory to ED4 with male visitor for wound check. Pt had lumbar surgery at [facility] on 09/15/22. She states that yesterday and today she noted bleeding to incision site, small amount yesterday and increasing today. Pt did not call her surgeon. She states that her visitor's mother advised she just come to the ED. Pt is A&Ox3, respirations even and unlabored, skin warm and dry, no distress noted. Pt wearing lumbar brace during triage. Pt was advised to remove brace to be ready for physician to examine site. Pt is taking Tramadol and states she took it at 2200 and again at 0400. Her pain is rated 6/10 at present. [id number] Emergency department Note* Jason Bernardo MD - 09/22/2022 12:49 PM EST EMERGENCY DEPARTMENT ENCOUNTER Pt Name: Pamela Alegria Birthdate 2000 Date of evaluation: 09/22/2022 ED Provider: JASON BERNARDO MD CHIEF COMPLAINT Chief Complaint Patient presents with Wound Check Post-op Problem HISTORY OF PRESENT ILLNESS I wore appropriate PPE for the entirety of this encounter. HPI Pamela Alegria is a 22 y.o. female who presents to the emergency department complaining of bleeding from the postoperative wound. The patient had a laminectomy on 09/14/2022. She states that she has changed the dressing several times and there is been blood present. She has not contacted her surgeon's office. There has been no fever or chills. Nursing Notes were reviewed. Limitations to history: None Outside historians: None REVIEW OF SYSTEMS Review of Systems Constitutional: Negative for chills and fever. Musculoskeletal: Negative for gait problem and neck pain. Skin: Positive for wound. Neurological: Negative for weakness and numbness. PAST MEDICAL HISTORY Past Medical History: Diagnosis Date Anxiety Depression Epilepsy (HCC) Seizures (CMS/HCC) (HCC) SURGICAL HISTORY Past Surgical History: Procedure Laterality Date LAMINECTOMY AND MICRODISCECTOMY LUMBAR SPINE N/A 09/14/2022 L5/S1 LAPAROSCOPY ABDOMEN DIAGNOSTIC (HISTORICAL) CURRENT MEDICATIONS Previous Medications AMITRIPTYLINE (ELAVIL) 10 MG TABLET Take 10 mg by mouth. BUSPIRONE (BUSPAR) 7.5 MG TABLET Take 7.5 mg by mouth in the morning and 7.5 mg in the evening. CLONAZEPAM (KLONOPIN) 0.5 MG TABLET Take 1 tablet by mouth for seizures greater than 3 minutes or for 3 or more seizures in 8 hours. Not to exceed 2 doses in 24 hours. MEDROXYPROGESTERONE (PROVERA) 10 MG TABLET TAKE 1 TABLET BY MOUTH EVERY DAY FOR 10 DAYS METHOCARBAMOL (ROBAXIN) 750 MG TABLET Take 1 tablet (750 mg) by mouth Nightly. OMEPRAZOLE (PRILOSEC) [address] CAPSULE Take 40 mg by mouth daily. ONDANSETRON (ZOFRAN) 4 MG TABLET Take 1 tablet (4 mg) by mouth every 8 hours as needed for nausea or vomiting for up to 7 days. PREDNISONE (DELTASONE) 20 MG TABLET Take 40 mg by mouth daily. SERTRALINE (ZOLOFT) 100 MG TABLET Take 100 mg by mouth daily. ALLERGIES Codeine, Dilaudid [hydromorphone], Morphine, Oxycodone-acetaminophen, and Red dye FAMILY HISTORY No family history on file. SOCIAL HISTORY Social History Socioeconomic History Marital status: Significant Other Tobacco Use Smoking status: Never Smokeless tobacco: Never Vaping Use Vaping Use: Former Substances: Nicotine, 8 yrs, quit few months ago Substance and Sexual Activity Alcohol use: Yes Comment: occas Drug use: Never Social Determinants of Health Intimate Partner Violence: Not At Risk Fear of Current or Ex-Partner: No Emotionally Abused: No Physically Abused: No Sexually Abused: No SCREENINGS PHYSICAL EXAM ED Triage Vitals [09/22/22 1255] Temp Heart Rate Resp BP 36.5 C (97.7 F) 88 16 115/76 SpO2 Temp Source Heart Rate Source Patient Position 100 % Temporal -- -- BP Location FiO2 (%) -- -- Physical Exam Vitals and nursing note reviewed. Constitutional: General: She is not in acute distress. Appearance: She is obese. She is not ill-appearing or toxic-appearing. Comments: The patient is a young female, obese, found lying on a cart. She is in no acute distress. Pulmonary: Effort: Pulmonary effort is normal. No respiratory distress. Musculoskeletal: General: No tenderness, deformity or signs of injury. Skin: Capillary Refill: Capillary refill takes less than 2 seconds. Findings: Lesion present. No erythema or rash. Comments: The patient has a vertically oriented surgical incision over the lower lumbar spinous processes. The wound edges are well opposed. There is no erythema. There is no purulence. Patient has very small amount of minor blood present. There is no hemorrhage. Neurological: General: No focal deficit present. Mental Status: She is alert and oriented to person, place, and time. Psychiatric: Mood and Affect: Mood normal. DIAGNOSTIC RESULTS RADIOLOGY (Per Emergency Physician): Interpretation per the Radiologist below, if available at the time of this note: No orders to display EKG Interpretation: LABS: Labs Reviewed - No data to display All other labs were within normal range or not returned as of this dictation. EMERGENCY DEPARTMENT COURSE and DIFFERENTIAL DIAGNOSIS/MDM: Vitals: Vitals: 09/22/22 1255 BP: 115/76 Pulse: 88 Resp: 16 Temp: 36.5 C (97.7 F) TempSrc: Temporal SpO2: 100% Medications Administered in the ED: Medications - No data to display I JASON BERNARDO MD am the practice clinician of record. PROCEDURES: Unless otherwise noted below, none Procedures Differential Diagnosis Considerations: Differential diagnosis includes early wound infection, postoperative bleeding, normal healing. ED testing and evaluation will be obtained to help differentiate these diagnostic possibilities anddetermine the most likely cause. Sources of History: I evaluated other historical sources including previous outpatient records and admission records. ED Course: In the emergency department I initially evaluated the patient with a history and physical examination in order to determine diagnostic testing and therapeutic care. On the basis of this history and physical examination I believe the patient is having normal healing. There is no evidence of acute bleeding. There is no wound dehiscence. The patient is advised to follow-up with her orthopedic surgeon who did the surgery. Reassessment: The patient is discharged Consideration of Admission/Observation: I considered admission for this patient, however, at this time the patient appears to be stable. I do not believe that the patient would benefit from admission at this time. I believe the patient canfollow-up with the primary care physician. The patient is advised to return to the emergency department if symptoms change or worsen where admission may need to be considered at a another time. There is no evidence of wound infection or dehiscence. Independent Interpretation of Tests: I independently evaluated the results of the patient's diagnostic testing in the context of the patient's presentation. Diagnostic Tests Considered but not Performed: No diagnostic testing appeared to be indicated on the basis of history or physical examination. Prescription Medications Considered but not Prescribed: I considered the prescription and administration of narcotics for this patient's discomfort. However, at this time I do not believe that narcotics would be indicated. Chronic Conditions Affecting Care: None FINAL IMPRESSION 1. Postop check DISPOSITION Discharge 09/22/2022 01:04:53 PM PATIENT REFERRED TO: Ishmael Vu [address] [facility] [id number] In 3 days DISCHARGE MEDICATIONS: New Prescriptions No medications on file (Comment: Please note this report has been produced using speech recognition software and may contain errors related to that system including errors in grammar, punctuation, and spelling, as well as words and phrases that may be inappropriate. If there are any questions or concerns please feel freeto contact the dictating provider for clarification.) JASON BERNARDO MD (electronically signed) Emergency Medicine Provider Jason Bernardo MD 09/22/22 1309 ([employer]) Phone: [phone] 126-590002-22-2023 Telephone encounter Note* Telephone Encounter - Alana Rodriguez - 09/15/2022 3:57 PM EST Letter faxed. [employer]02-22-2023 Miscellaneous Notes* Telephone Encounter - Alana Rodriguez - 09/15/2022 3:57 PM EST Letter faxed. * Telephone Encounter - Caroline Shaw - 09/15/2022 10:33 AM EST Name of Caller: Pamela Contact Reason for call: pt stated she needs a letter stating she is unable to work due to sx in order to still get food assistance. , [employer] JFS, [email or web address]. Office Name: Dr Vallejo-Ortho Patient states that she is giving a different fax number then last time. * Telephone Encounter - Delmar Nelson - 09/08/2022 12:36 PM EST Pt calling back to check on status. Pt informed of message from Alana regarding pre-surgery letter. She was informed post surgery that our office would write her off work for appropriate amount of time. Pt verbalizes understanding. * Telephone Encounter - Alana Rodriguez - 08/25/2022 12:53 PM EST Called patient to explain that we currently do not have any restrictions therefore she would need aletter from her primary care doctor before surgery. We would handle the post op time off work. Attempted to leave a message but voicemail box was full. * Telephone Encounter - Jacquelyn Wilburn - 08/25/2022 11:21 AM EST Name of Caller: Pamela Contact Reason for call: pt stated she needs a letter stating she is unable to work due to sx in order to still get food assistance. , [employer] JFS, [email or web address]. Deadline 09.02.22. Office Name: Dr Vallejo-Ortho documented in this [facility]02-22-2023 Telephone encounter Note* Telephone Encounter - Alexandro Hanks PA-C - 09/15/2022 12:54 PM EST Zofran called in. [id number] Miscellaneous Notes* Telephone Encounter - Alexandro Hanks PA-C - 09/15/2022 12:54 PM EST Zofran called in. * Telephone Encounter - Sahara Barrera RN - 09/15/2022 10:36 AM EST L5 right laminectomy, partial facetectomy, partial foraminotomy, with decompression of cauda equinaand nerve roots. S1 right laminectomy, partial facetectomy, partial foraminotomy, with decompression of cauda equinaand nerve roots. DOS: 09/14/22 Spoke with patient. She states she is very nauseous. She was receiving Zofran in the hospital. She is requesting something for nausea be sent to her pharmacy. Please advise * Telephone Encounter - Caroline Shaw - 09/15/2022 10:29 AM EST Name of Caller: Pamela Relationship to Patient: self Symptoms/Concerns: Pamela had a L5-S1 Laminectomy yesterday and is feeling very nauseas. Wants to know what she can do for the nausea. Provider: Dr. Vallejo Practice Name: Ortho documented in this [facility]02-22-2023 Telephone encounter Note* Telephone Encounter - Sahara Barrera RN - 09/15/2022 10:36 AM EST L5 right laminectomy, partial facetectomy, partial foraminotomy, with decompression of cauda equinaand nerve roots. S1 right laminectomy, partial facetectomy, partial foraminotomy, with decompression of cauda equinaand nerve roots. DOS: 09/14/22 Spoke with patient. She states she is very nauseous. She was receiving Zofran in the hospital. She is requesting something for nausea be sent to her pharmacy. Please advise [facility] [id number] Telephone encounter Note* Telephone Encounter - Caroline Shaw - 09/15/2022 10:33 AM EST Name of Caller: Pamela Contact Reason for call: pt stated she needs a letter stating she is unable to work due to sx in order to still get food assistance. , [employer]ama Calvo [facility], [email or web address]. Office Name: Dr Vallejo-Ortho Patient states that she is giving a different fax number then last time. [facility] [id number] Telephone encounter Note* Telephone Encounter - Caroline Shaw - 09/15/2022 10:29 AM EST Name of Caller: Pamela Relationship to Patient: self Symptoms/Concerns: Pamela had a L5-S1 Laminectomy yesterday and is feeling very nauseas. Wants to know what she can do for the nausea. Provider: Dr. Vallejo Practice Name: Ortho [facility] [id number] Miscellaneous Notes* Perioperative Nursing Note - Gladys Huerta RN - 09/14/2022 8:15 PM EST Discharge information given to the patient. Patient and family verbalized understanding of information. All questions were answered before discharge. Patient ambulated, denies dizziness or nausea. Tolerating PO fluids and crackers. Vital signs are stable. Patient has changed and is being discharged home in a wheelchair with valuables. * Perioperative Nursing Note - Gladys Huerta RN - 09/14/2022 7:51 PM EST Patient ambulated to restroom and voided without difficulty * Perioperative Nursing Note - Gladys Huerta RN - 09/14/2022 6:45 PM EST Patients family updated via [employer] messenger documented in this [facility]02-21-2023 Note* Perioperative Nursing Note - Gladys Huerta RN - 09/14/2022 8:15 PM EST Discharge information given to the patient. Patient and family verbalized understanding of information. All questions were answered before discharge. Patient ambulated, denies dizziness or nausea. Tolerating PO fluids and crackers. Vital signs are stable. Patient has changed and is being discharged home in a wheelchair with valuables. [facility] [id number] Note* Perioperative Nursing Note - Gladys Huerta RN - 09/14/2022 8:15 PM EST Discharge information given to the patient. Patient and family verbalized understanding of information. All questions were answered before discharge. Patient ambulated, denies dizziness or nausea. Tolerating PO fluids and crackers. Vital signs are stable. Patient has changed and is being discharged home in a wheelchair with valuables. [facility] [id number] Note* Perioperative Nursing Note - Gladys Huerta RN - 09/14/2022 7:51 PM EST Patient ambulated to restroom and voided without difficulty [id number] Note* Perioperative Nursing Note - Gladys Huerta RN - 09/14/2022 7:51 PM EST Patient ambulated to restroom and voided without difficulty [facility] [id number] Hospital Discharge instructions* Discharge Instructions* Pamela Carrillo MD - 09/14/2022 6:49 PM EST DISCHARGE INSTRUCTIONS LUMBAR DECOMPRESSION INCISION: Please make sure your incisions are checked at least twice daily for signs and symptoms of infection: If any of the below should occur, please call the office. Drainage from incisional site Opening of incisions Fevers greater than 101 Flu-like symptoms Increased redness and/or tenderness You do not have any suture that needs to be removed. SHOWERING: You may shower as normal once the bandages are removed from your incisions. When showering no soap, rubbing or scrubbing incision. Pat area dry. You may remove dressing 48-72hrs after your surgery. No tub baths, hot tubs or whirlpools until seen in the office. EXERCISE: Lift objects weighing less than 10-15 lbs Do not bend or twist at the waist-always bend your knees!! Walk as much as possible-let discomfort be your guide. You may also go up and down stairs as much as you can tolerate. Get up and walk at least 4 times a day. Wear your brace, if given, while up. PAIN: Take pain medication as prescribed. As your pain level decreases, you may begin to take irpi-jby-[id number] Extra Strength Tylenol. The maximum Tylenol you are able to take is 4000 mg a day total. You should try to wean from your pain medicine in 2-3 weeks[address] It is illegal to drive while taking narcotic pain medication. Pain medication will not be refilled overnight and on the weekends. If you will run out please callearly. Narcotic pain medicine WILL cause constipation. Please obtain the following medication to prevent constipation. Colace twice daily. Purchase over the counter. (May substitute with similar med such as Senna.) Miralax 1-2 times daily. Over the counter. Twice daily if you are feeling constipated. Magnesium Citrate. Over the counter. If no bowel movement in a few days and you are becoming uncomfortable. Enema. Over the counter. If no relief with above regiment. DRIVING: You may NOT drive a car until told otherwise by your physician (usually at your first office visit). You may be a passenger for short distances (20-30 minutes). If you must take a longer trip, make sure to make several pit stops so that you can walk around and stretch your legs. Reclining the passenger seat seems to be the most comfortable position for most patients. FOLLOW-UP APPOINTMENTS: Please call to make an appointment for 2-3 weeks from your surgery date. QUESTIONS or CONCERNS: If you have any additional questions/concerns, please contact the office. documented in this [facility]02-21-2023 Note* Perioperative Nursing Note - Gladys Huerta RN - 09/14/2022 6:45 PM EST Patients family updated via [employer] call messenger [facility] [id number] Note* Perioperative Nursing Note - Gladys Huerta RN - 09/14/2022 6:45 PM EST Patients family updated via [employer] call messenger [facility] [id number] History and physical note* Toni Vallejo MD - 09/14/2022 4:08 PM EST Please see office and permission testing history and physical dated within [...] after undergoing at least 6 weeks of theabove treatments, then surgical intervention becomes an option. [...] are detailed below, verbally acknowledged and verbal consentgiven. Assessment: 22-year-old female with right S1 radiculopathy [...] help the hardware to hold well. ' [place] Phone: [phone] 636-442802-21-2023 History and physical note* Toni Vallejo MD - 09/14/2022 4:08 PM EST Please see office and permission testing history and physical dated within [...] after undergoing at least 6 weeks of theabove treatments, then surgical intervention becomes an option. [...] are detailed below, verbally acknowledged and verbal consentgiven. Assessment: 22-year-old female with right S1 radiculopathy [...] help the hardware to hold well. ' documented in this [facility]02-15-2023 NoteHNO ID: [id number] Author: RT Vinicio(R) Service: ? Author Type: [...] MRV SIGNATURE: Karine Stover RDMS, RVT- Brent ([employer]) PATIENT NAME: Pamela Alegria DATE: September 08, 2022 TIME: 2:30 [facility]02-15-2023 History of Present illness Narrative* LENA MooneyR) - 09/08/2022 2:15 PM EST Radiology Service Progress Note DATE OF SERVICE: [...] MRV SIGNATURE: Karine Stover RDMS, RVT- Brent ([employer]) PATIENT NAME: Pamela Alegria DATE: September 08, 2022 TIME: 2:30 PM documented in this [facility] Telephone encounter Note * Telephone Encounter - Delmar Nelson - 09/08/2022 12:36 PM EST Pt calling back to check on status. Pt informed of message from Alana regarding pre-surgery letter. She was informed post surgery that our office would write her off work for appropriate amount of time. Pt verbalizes understanding. [facility] [id number] Miscellaneous Notes* Telephone Encounter - Delmar Nelson - 09/08/2022 12:36 PM EST Pt calling back to check on status. Pt informed of message from Alana regarding pre-surgery letter. She was informed post surgery that our office would write her off work for appropriate amount of time. Pt verbalizes understanding. * Telephone Encounter - Alana Rodriguez - 08/25/2022 12:53 PM EST Called patient to explain that we currently do not have any restrictions therefore she would need aletter from her primary care doctor before surgery. We would handle the post op time off work. Attempted to leave a message but voicemail box was full. * Telephone Encounter - Jacquelyn Wilburn - 08/25/2022 11:21 AM EST Name of Caller: Pamela Contact Reason for call: pt stated she needs a letter stating she is unable to work due to sx in order to still get food assistance. , Adama FONSECA, [email or web address]. Deadline 09.02.22. Office Name: Dr Schumacher documented in this [facility]02-01-2023 NoteHNO ID: [id number] Author: Taz Mackenzie MD Service: ? Author Type: Physician Type: Progress Notes Filed: 08/25/2022 4:23 PM Note Text: [facility] NEW PATIENT EVALUATION/CONSULTATION Referral source: Milly oLckwood MD [id number] [facility] [address] Also followed by: Patient Care Team: Ishmael [...] expected to be with me at the [facility]. Ms. Pamela Alegria is here today for possible optic neuritis. A few days ago, her fuse cutter told her that she had optic disc swelling and mildly elevated intra-ocular pressure (while at a routine check up) and sent her to the ER immediately after at [facility]. They told her that she had swelling in the back of her eyes. At the hospital, they ran labs and told her nothing is wrong. MRI and labs were completed but she does not have the results. A few days following the ER visit, she went back to the fuse cutter who suggested that she be seen at the [facility]. She is scheduled to follow up with ophthalmology in October 2022. Her fuse cutter is Dr. Milly Lockwood at [facility]: [phone] During this time, she has not noticed any problems with her vision and denies any BREAUX. Surgery for a herniated disc is scheduled for 14 SEP 2022 at [facility] - laminectomy, L5 /S1. For the past few years, she has experienced chronic pain and her right leg gives out constantly. 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 Multiple Sclerosis Performance Test Flowsheet Row Office Visit from 08/25/2022 in [facility] Processing Speed Total Number Correct 32 Low-contrast [...] Muscles of mastication and (more content not included)...[facility]02-01-2023 Instructions* Patient Instructions* Taz Mackenzie MD - 08/25/2022 2:27 PM EST Note If you notice any changes in your vision, increases in headaches, fever, or confusion, please go [facility] emergency [facility] immediately. documented in this encounterA[facility]02-01-2023 History of Present illness Narrative* Taz Mackenzie MD - 08/25/2022 1:15 PM EST Images from the original note were not included. [facility] NEW PATIENT EVALUATION/CONSULTATION Referral source: Milly Lockwood MD [address] [facility] [address] Also followed by: Patient Care Team: Ishmael [...] reports, and radiology reports) and imaging studies werereviewed and summarized. My recommendations will be communicated back to the patient's physician(s)via electronic medical record. Follow-up is expected to be with me at the [facility]. Ms. Pamela Alegria is here today for possible optic neuritis. A few days ago, her fuse cutter told her that she had optic disc swelling and mildly elevated intra-ocular pressure (while at a routine check up) and sent her to the ER immediately after at [facility]. They told her that she had swelling in the back of her eyes. At the hospital, they ran labs and told her nothing is wrong. MRI and labs were completed but she does not have the results. A few days following the ER visit, she went back to the fuse cutter who suggested that she be seen at the [facility]. She is scheduled to follow up with ophthalmology in October 2022. Her fuse cutter is Dr. Milly Lockwood at [facility]: [phone] During this time, she has not noticed any problems with her vision and denies any BREAUX. Surgery for a herniated disc is scheduled for 14 SEP 2022 at [facility] - laminectomy, L5 /S1. For the past few years, she has experienced chronic pain and her right leg gives out constantly. 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 History of epilepsy - used to follow with Dr. Velarde. [facility] She is on Depakote for her epilepsy. [...] 124/84 Pulse 89 Ht 160 cm (5' 3) Wt 77.1 kg (170 lb) LMP 07/07/2020 (Exact Date) BMI 30.11 kg/m Multiple Sclerosis Performance Test Flowsheet Row Office Visit from 08/25/2022 in [facility] Processing Speed Total Number Correct 32 Low-contrast [...] the arms and legs was performed including [id number], rapid-alternating, and fine movements. Coordination testing in [...] studies were available for review. ASSESSMENT: Ms. Pamela Alegria is a 22 year old woman sent to me due to the presence of bilateral optic discedema and concern for optic neuritis. Unfortunately, her MRI was not available for me to review butper the note from Dr. Lockwood there were [...] with her and the risk of insidious visualloss and the importance of following through with [...] she notices any changes in her vision, newheadaches, confusion, or other neurologic changes, she should go to the emergency department immediately. She agreed to this. We should also get her reestablished with the epilepsy center and a consultation was placed for this. PLAN: MRI orbits w/wo contrast. MR venogram Refer to neuro ophthalmology Labs: Vit B12, MMA, homocysteine, SALES EXP[employer] HOME THEATER demyelinating disease evaluation, anti dora id, erica by ifa with reflex, abelino/angiotensin, Consider LP depending on results of above. Refer to epilepsy clinic Follow-up after the MRIs and neuro-ophthalmology evaluation. Office Visit on 08/25/22 MRI ORBIT WO/W IVCON MRV BRAIN WO/W IVCON ABELINO/ANGIOTENSIN BLD ERICA BY IFA WITH REFLEX ANTI DORA ID VITAMIN B12 BLOOD HOMOCYSTEINE METHYLMALONIC ACID SALES EXPERT HOME THEATER DEMYELINATING DISEASE EVALUATION, SERUM CONSULT TO OPHTHALMOLOGY CONSULT TO NEUROLOGY I spent a total of 60 minutes on the date of the service which included preparing to see the patient, [id number] patient care, completing clinical documentation, obtaining and/or reviewing separately obtained history, performing a medically appropriate examination, counseling and educating the pat ient/family/caregiver, and ordering medications, tests, or procedures. By signing my dame below, I, Anjana José, attest that this documentation has been prepared underthe direction and in the presence of Dr. Mackenzie Electronically signed, Kalia Morelibe August 25, 2022 1:49 PM I agree with the Chief Complaint, ROS, and Past Histories independently gathered by the clinical microcomputer support specialist and the remaining scribed note accurately describes my personal service to the patient. Taz Mackenzie MD Staff Neurologist [facility] for Multiple Sclerosis documented in this encounterA[facility]02-01-2023 Telephone encounter Note * Telephone Encounter - Alana Rodriguez - 08/25/2022 12:53 PM EST Called patient to explain that we currently do not have any restrictions therefore she would need aletter from her primary care doctor before surgery. We would handle the post op time off work. Attempted to leave a message but voicemail box was full. [facility] [id number] Telephone encounter Note* Telephone Encounter - Jacquelyn Wilburn - 08/25/2022 11:21 AM EST Name of Caller: Pamela Contact Reason for call: pt stated she needs a letter stating she is unable to work due to sx in order to still get food assistance. , Adama FONSECA, [email or web address]. Deadline 09.02.22. Office Name: Dr Schumacher [facility] [id number] Telephone encounter Note* Telephone Encounter - Alana Rodriguez - 07/28/2022 4:24 PM EST Clearance form faxed [facility] [id number] Miscellaneous Notes* Telephone Encounter - Alana Rodriguez - 07/28/2022 4:24 PM EST Clearance form faxed * Telephone Encounter - Kwasi Cantu - 07/28/2022 1:56 PM EST Pt called back with fax number for PCP [phone] Please fax the surgical clearance form * Telephone Encounter - Alana Rodriguez - 07/28/2022 11:41 AM EST Called [phone] Dr. Vu office for fax number to fax PCP clearance form. Requested them to call back with fax number. documented in this encounterSMercy Health Lorain [id number] Telephone encounter Note* Telephone Encounter - Kwasi Cantu - 07/28/2022 1:56 PM EST Pt called back with fax number for PCP [phone] Please fax the surgical clearance form [facility] [id number] Telephone encounter Note* Telephone Encounter - Alana Rodriguez - 07/28/2022 11:41 AM EST Called [phone] Dr. Vu office for fax number to fax PCP clearance form. Requested them to call back with fax number. [facility] [id number] History of Present illness Narrative* Toni Vallejo MD - 07/28/2022 10:15 AM EST Images from the original note were not included. [facility] [address] [facility] [address] Dept: [phone] Pamela Alegria 2000 [id number] 07/28/2022 Problem List: Lower extremity weakness, right, unknown etiology Upper motor neuron findings Progressive debility status post lumbar epidural injection Lumbar degenerative disc disease L4/L5 and L5/S1 Chief Complaint Patient presents with Follow-up HPI: Pamela is a 22 y.o. female who is here today for MRI review. Current symptoms: Pain is located in the across the lower back or radiating to right leg(s) that is radiating Posterior, Lateral. Numbness tingling: yes - right leg at night Weakness: yes - right leg- reports it gives out frequently Changes since last visit: Worsening low back pain and radiating down the right leg Right leg buckling when descending the stairs- reports increase in falls She has been crawling up the stairs lately Aggravating factors: bending backwards, bending forwards, bending sideways, standing, and walking Alleviating Factors: nothing Current Treatment: MRI thoracic and lumbar Robaxin amitriptyline Previous Treatment: PT: Yes not within the last 3 months Where: [facility] in [place] When: last year Completed: No NSAIDS: ibuprofen (Motrin) Injections: Yes What Type: epidural When: 05/05/22 How much relief: reports no relief Opiod medications: tramadol previously Muscle relaxers: cyclobenzaprine (Flexeril)- previously Oral steroids: prednisone (DELTASONE) Nerve medications (gabapentin/Lyrica): n/a Pain management: Yes Where: [facility] Still going: No Chiropractor: Yes Smoking status: former smoker History of DVT/PE or hypercoagulable state (including history of relative): No Blood thinning medications: none Has the patient had spine surgery and/or consulted with another spine surgeon?: No previous surgery Where/Who: When: Consult with Dr. Meza - stated she was too young for surgery but would recommend a fusion Review of Systems Allergies Allergen Reactions Codeine Hives Morphine Hives and Itching Oxycodone-Acetaminophen Hives Red [...] to exceed 2 doses in 24 hours. medroxyPROGESTERone (Provera) 10 MG tablet TAKE 1 TABLET BY MOUTH EVERY DAY FOR 10 DAYS methocarbamol (Robaxin) 750 MG tablet Take 1 tablet (750 mg) by mouth Nightly. 30 tablet 0 omeprazole (PriLOSEC) [address] capsule Take 40 mg by mouth daily. predniSONE (Deltasone) 20 MG tablet Take 40 mg by mouth daily. sertraline (Zoloft) 100 MG tablet Take 100 mg by mouth daily. No current facility-administered medications for this visit. No past medical history on file. No past surgical history on file. Social History Socioeconomic History Marital status: Significant Other Spouse name: Not on file Number of children: Not on file Years of education: Not on file Highest education level: Not on file Occupational History Not on file Tobacco Use Smoking status: Former Types: Cigarettes Quit date: 01/22/2005 Years since quittin.5 Smokeless tobacco: Never Substance and Sexual Activity Alcohol use: Not on file Drug use: Not on file Sexual activity: Not on file Other Topics Concern Not on file Social History Narrative Not on file Social Determinants of Health Financial Resource Strain: Not on file Food Insecurity: Not on file Transportation Needs: Not on file Physical Activity: Not on file Stress: Not on file Social Connections: Not on file Intimate Partner Violence: Not on file Housing Stability: Not on file No family history on file. Physical Exam: Ht 1.676 m (5' 6) Wt 80.3 kg (177 lb) BMI 28.57 kg/m SPINE/EXTREMITY: General: Patient with a shuffling gaits, very unsteady. Unable to heel and toe walk or perform tandem gait. Significant pitched forward and kyphotic posture. Lower Extremity Motor: HF Q TA EHL Peroneals GSC Right 3 4 4 4 4 4 Left 3 4 5 5 4 5 Lower extremity sensation to light touch: L2 L3 L4 L5 S1 Right Intact Intact Intact Intact Diminished Left Intact Intact Intact Intact Intact Lower extremity reflexes: Patellar Achilles Right 3 3 Left 3 3 Straight leg raise: Right Positive Left Negative Misc: Clonus Babinski Right None Absent Left None Absent Hip exam: Bilateral hip range of motion is full and symmetric without pain. Radiographic findings: Radiographs: Lumbar and thoracic MRI: Date of exam: 07/28/22 Findings: THORACIC SPINE: Counting reference: Craniocervical junction Field Cane Scaler Helper image: Unremarkable Alignment: Normal Spinal cord: Motion artifact somewhat limit assessment of the spinal cord on the axial T2 sequence.However, no findings to suggest cord edema or cord lesions. No cord compression. Soft tissues: Unremarkable Vertebrae: Normal marrow signal intensity. No fractures. No osseous lesions. Canal and foramina: No stenosis. LUMBAR SPINE: Counting reference: For this report, L5-S1 is considered the last lumbar-type disc space, and L4-L5is at the level of the iliac crests. Alignment: Anatomic Conus: Normal position and signal intensity. Vertebral bodies/marrow: Normal vertebral body height. Normal marrow signal intensity. Canal and foramina: T12-L1: Canal and foramina are patent. L1-L2: Canal and foramina are patent. L2-L3: Canal and foramina are patent. L3-L4: Canal and foramina are patent. L4-L5: A central disc protrusion mildly narrows the spinal canal and subarticular recesses bilaterally. No evidence of nerve root impingement. Patent neural foramina. L5-S1: A 10 mm right subarticular zone disc extrusion produces moderate subarticular recess stenosis with mild mass effect on the right S1 nerve root sleeve. There is no spinal stenosis. The neural foramina are patent. Visualized sacrum: Unremarkable. Soft tissue structures: Unremarkable. IMPRESSION: 1. Normal MRI of the thoracic spine. 2. Right L5-S1 subarticular recess stenosis secondary to a 10 mm extruded disc with mild mass effect on the right S1 nerve root sleeve. 3. Mild L4-5 spinal stenosis secondary to a central disc protrusion. Lumbar Spine: outside imaging no report Date of Exam: 11/02/21 Views: 4 views of the lumbar spine (AP, lateral, flexion and extension) Findings: Please see radiology report for full interpretation. Mild degenerative disc disease throughout. No obvious instability. No evidence of fracture or subluxation. Lumbar MRI: outside imaging no report Date of exam: 04/27/22 Findings: Please see radiology report for full interpretation. Degenerative disc disease worse at the L4/L5 and L5/S1 level. No significant neurologic compression at L4/L5. At L5/S1 there is right sided L5/S1 lateral recess stenosis causing compression of the traversing S1 nerve root. All documented radiology studies listed above were individually reviewed, interpreted (agree with radiology report unless noted below) and discussed with the patient during today's office visit. No evidence of thoracic spinal stenosis in the thoracic MRI. Lumbar CT: Date of exam: Findings: Other Diagnostic Testing: EMG: DEXA: Lab Review: No labs were reviewed/no labs were available for review this visit. IMPRESSION: See problem list above. Pamela is a 22 y.o. female presenting with right lower extremity weakness, unknown origin. The patient and I discussed thoroughly the [...] after undergoing at least 6 weeks of theabove treatments, then surgical intervention becomes an option. [...] are detailed below, verbally acknowledged and verbal consentgiven. Given she does have some S1 nerve root displacement on the right side and her symptoms correspond to the right S1 nerve root, she is a candidate for a right L5/S1 laminectomy I had a long discussion with Pamela to make sure she had a good understanding of what I think the main issues and diagnoses are that are affecting her today, and reviewed the plan going forward. PLAN: MIS right L5/S1 laminectomy Preoperative labs No follow-ups on file. Electronically signed by Toni Vallejo MD Dictated using [employer] Version 2.4 Proof read however unrecognized voice recognition errors may have occurred documented in this [facility]01-04-2023 Instructions* Patient Instructions* Alana Rodriguez - 07/28/2022 10:15 AM EST Images from the original note were not included. Right L5/S1 [facility] [address], [place] [phone] (fax) [place] [facility] [address] [place] [address] (fax) [place] [facility] [address] [place], [place] [phone] (fax) Office Hours: M-F by appointment only [address] [phone] (fax) Office Hours: M-F by appointment only [place] [facility] [address] [place] [address] [phone] (fax) Office Hours: M-F by appointment only [place] [facility] [address] [place] [address] [phone] (fax) Office Hours: M-F by appointment only [place] [facility] [address] [place] [address] [phone] (fax) Office Hours: M-F 8AM-4:30PM Closed 12PM-1PM documented in this [facility]12-30-2022 Telephone encounter Note* Telephone Encounter - Alexandro Hanks PA-C - 07/23/2022 12:15 PM EST Rx sent to pharmacy listed in EHR. Please review risks as seen below. Thanks. The risks and appropriate dosing of muscle relaxants (ie Robaxin, Flexeril, etc) were discussed with patient in detail. These include but are not limited to drowsiness, headache, changes in heart rate, dizziness, nausea/vomiting, abdominal pain, constipation, memory problems, and urine discoloration. If any of these side effects are experienced I advised the patient to discontinue the medication and contact both myself and their primary care physician. [facility] [id number] Miscellaneous Notes* Telephone Encounter - Alexandro Hanks PA-C - 07/23/2022 12:15 PM EST Rx sent to pharmacy listed in EHR. Please review risks as seen below. Thanks. The risks and appropriate dosing of muscle relaxants (ie Robaxin, Flexeril, etc) were discussed with patient in detail. These include but are not limited to drowsiness, headache, changes in heart rate, dizziness, nausea/vomiting, abdominal pain, constipation, memory problems, and urine discoloration. If any of these side effects are experienced I advised the patient to discontinue the medication and contact both myself and their primary care physician. * Telephone Encounter - Fernanda Wong Chang - 07/23/2022 11:50 AM EST Name of caller: Pamela Contact phone number: [phone] Relationship to Patient: Self Provider: Genevieve Practice: Ortho Chief Complaint/Reason for Call: Pt called in regarding increased pain and stabbing pain in her legs. Pt wanting to know if there is anything she can take or be prescribed to help with her pain through the weekend. Please Advise. Best time of day caller can be reached: any Patient advised that office/PCP has 24-48 business hours to return their call: No documented in this [facility]12-30-2022 Telephone encounter Note* Telephone Encounter - Fernanda Wong Chang - 07/23/2022 11:50 AM EST Name of caller: Pamela Contact phone number: [phone] Relationship to Patient: Self Provider: Genevieve Practice: Ortho Chief Complaint/Reason for Call: Pt called in regarding increased pain and stabbing pain in her legs. Pt wanting to know if there is anything she can take or be prescribed to help with her pain through the weekend. Please Advise. Best time of day caller can be reached: any Patient advised that office/PCP has 24-48 business hours to return their call: No [facility] [id number] NotePap Smear Specimen AdequacyNovember 2021 4:31pm Comment.Satisfactory for evaluation. Endocervical and/or squamous metaplasticcells (endocervical component)are present.[facility] A#[id number]. Rita'S Hospital Work Phone: Comment on above:Satisfactory for evaluation. Endocervical and/or squamous metaplasticcells (endocervical component)are present.05-31-2022 NotePap Smear Specimen AdequacyNovember 2021 4:31pm Comment.Satisfactory for evaluation. Endocervical and/or squamous metaplasticcells (endocervical component)are present.[facility] INTER[facility] A#[id number] Medical [facility], [place] on above:Satisfactory for evaluation. Endocervical and/or squamous metaplasticcells (endocervical component)are present.05-31-2022 NotePap Smear Specimen AdequacyNovember 2021 4:31pmComment.Satisfactory for evaluation. Endocervical and/or squamous metaplasticcells (endocervical component)are present.[facility]ACED A#[id number] [place] on above:Satisfactory for evaluation. Endocervical and/or squamous metaplasticcells (endocervical component)are present.03-12-2022 NoteHNO ID: [id number] Author: Yahaira Ramos, DO Service: ? Author Type: Physician Type: Progress Notes Filed: 03/12/2022 4:38 PM Note Text: Pamela Alegria is a 22 year old female [...] [Codeine] Hives Current Outpatient Medications Medication Sig Aecmgxgyczpxyma-Fxwktkvqc-OI (BROMFED DM) 2-30-10 mg/5 mL syrup Take [...] HOURS 8.5 June 02, 2020 8:46am 06-02-2020 [facility] ([id number]) (Patient not taking: Reported on 03/12/2022) ondansetron orally disintegrating (ZOFRAN ODT) 4 mg disintegrating tablet (Patient not taking: No sig reported) traMADol (ULTRAM) 50 mg tablet (Patient not taking: No sig reported) potassium chloride ER (K-DUR, KLOR-CON) 20 mEq tablet Potassium Chloride Potassium Chloride [K-Dur] 20 MEQ PO TWICE A DAY 7 June 28, 2018 Active 06-28-2018 [facility] ([id number]) (Patient not taking: No sig reported) medroxyPROGESTERone [...] hernias, and Normoactive desirae (more content not included)...[facility] History of Present illness Narrative* Yahaira Ramos, - 03/12/2022 4:37 PM EDT Pamela Alegria is a 22 year old female who presents with a chief complaint of Follow Up (Checkup since miscarriage been a year. Also cant [...] [Codeine] Hives Current Outpatient Medications Medication Sig Nmmhhxtuserjfhr-Yhhsledzi-ZX (BROMFED DM) 2-30-10 mg/5 mL syrup Take [...] HOURS 8.5 June 02, 2020 8:46am 06-02-2020 [facility] ([id number]) (Patient not taking: Reported on 03/12/2022) ondansetron orally disintegrating (ZOFRAN ODT) 4 mg disintegrating tablet (Patient not taking: No sig reported) traMADol (ULTRAM) 50 mg tablet (Patient not taking: No sig reported) potassium chloride ER (K-DUR, KLOR-CON) 20 mEq tablet Potassium Chloride Potassium Chloride [K-Dur]20 MEQ PO TWICE A DAY 7 June 28, 2018 Active 06-28-2018 [facility] ([id number]) (Patient not taking: No sig reported) medroxyPROGESTERone [...] WHI Yahaira Ramos DO [facility] Discharge instructions Patient Education 11/20/2021 21:45:22 [...] for 30 minutes. Even mild-moderate exercise (like briskwalking) can make you feel better. Don't drink alcohol, which can make depression worse. Take medicine as prescribed. Tell each of your healthcare providers about all of the prescription and jscy-omx-sdwfnjy medicines, vitamins, and supplements you take. Certain [...] carry out the plan; or serious thoughts ofhurting someone else Have trouble breathing Are very [...] behavior and ask you to seek help [phone] [employer] [place] [address]. All rights reserved. This information is not intended as a substitute for professional medical care. Always follow [facility] professional[facility] instructions. 11/20/2021 21:45:19 Hypokalemia Hypokalemia Hypokalemia means a low level of potassium in the blood. This most often occurs in people who take water pills (diuretics). It can also occur because of severe vomiting or diarrhea. You may also haveit if you take laxatives for long periods [...] test within the next week, or as advisedby our staff. When to seek medical advice Call your healthcare provider right away if any of the following occur: Increased weakness, fatigue, or muscle cramps Dizziness Call 911 Call 911 if any of the following occur: Irregular heartbeat, extra beats, or very fast heart rate Loss of consciousness [phone] [employer] [address] [employer] [address] [place] [address], [place] [address]. All rights reserved. This information is not intended as a substitute for professional medical care. Always follow yourhealthcare professional's instructions. 11/20/2021 21:45:18 Seizure, Recurrent (Adult) [...] might cause danger to you or other peopleif you have another seizure. Until the seizures [...] Vehicles will be told. 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 [place] [address]. All rights reserved. This information is not intended as a substitute for professional medical care. Always follow yourhealthcare professional's instructions. Follow Up Care 11/20/2021 17:41:14 With:[facility] Address: [address] [place] [id number] When:2-4 days Comments: With:Go to emergency room if symptoms worsen Address:Unknown When:2-4 days With:BRIAN QUINTEROS MD Address: [address] [place] [phone]- When:2-4 days [facility] [place] Chief complaint+Reason for visit Narrative* Chief Complaint REFERRAL FOR PSYCH. LOWER BACK PAIN, SWELLING WHEN ON FEET Reason for Visit Insomnia Depression Acute exacerbation of chronic low back pain [facility] Work Phone: Evaluation + Plan note No data available for this section [facility] [place] Evaluation note* Diagnosis Near syncope- Primary Syncope and collapse Anxiety state Anxiety state, unspecified test positive examination or test, positive result documented [facility] this encounter [facility] note* Diagnosis Onset Date Resolution Status Insomnia acute Depression chronic Acute exacerbation of chronic low back pain chronic 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 Work Phone: Evaluation note* Diagnosis Onset Date Resolution Status Herniated nucleus pulposus, L5-S1, right acute Irregular menses acute Irregular menses acute Screen for STD (sexually transmitted disease) noneactive Pap smear for cervical cancer screening noneactive [facility] Work Phone: Evaluation note* Diagnosis Onset Date Resolution Status Herniated nucleus pulposus, L5-S1, right acute Irregular menses acute Irregular menses acute Screen for STD (sexually transmitted disease) noneactive Pap smear for cervical cancer screening noneactive Herniated nucleus pulposus, L5-S1, right acute Depression chronic Elevated TSH noneactive [facility] Work Phone: Evaluation note* Diagnosis Onset Date Resolution Status Herniated nucleus pulposus, L5-S1, right acute Irregular menses acute Irregular menses acute Screen for STD (sexually transmitted disease) noneactive Pap smear for cervical cancer screening noneactive Herniated nucleus pulposus, L5-S1, right acute Depression chronic Elevated TSH noneactive Herniated nucleus pulposus, L5-S1, right acute Anxiety and depression chron ic HTN (hypertension) chronic Pre-procedural general physical examination noneactive [facility] Work Phone: Evaluation note* Diagnosis Papilledema- Primary Papilloedema, unspecified Optic neuritis Optic neuritis, unspecified Idiopathic intracranial hypertension Benign intracranial hypertension Nonintractable epilepsy without status epilepticus, unspecified epilepsy type (HCC) [facility]* Diagnosis Papilledema Papilloedema, unspecified Optic neuritis Optic neuritis, unspecified Idiopathic intracranial hypertension Benign intracranial hypertension [facility]* Diagnosis Papilledema Papilloedema, unspecified Optic neuritis Optic neuritis, unspecified Idiopathic intracranial hypertension Benign intracranial hypertension [facility]* Diagnosis Elevation of optic disc, bilateral- Primary Other localized visual field defect, bilateral IIH (idiopathic intracranial hypertension) Benign intracranial hypertension [facility]* Diagnosis Elevation of optic disc, bilateral IIH (idiopathic intracranial hypertension) Benign intracranial hypertension documented in this encounter [facility] note* Diagnosis Elevation of optic disc, bilateral- Primary documented in this encounter [facility] note* Diagnosis Lumbar radiculopathy Thoracic or lumbosacral neuritis or radiculitis, unspecified documented in this encounter [facility] note* Diagnosis Onset Date Resolution Status Irritable bowel syndrome with diarrhea chronic Irregular menses acute Irritable bowel syndrome with diarrhea chronic [facility] Work Phone: Evaluation note* Diagnosis Radiculopathy of lumbar region documented in this encounter [facility] note* Diagnosis Radiculopathy of lumbar region documented in this encounter [facility] note* Diagnosis Generalized epilepsy (HCC)- Primary Unspecified epilepsy without mention of intractable epilepsy Seizure-like activity (HCC) Other convulsions documented in this encounter [facility] note* Diagnosis Onset Date Resolution Status Irritable bowel syndrome with diarrhea chronic Irregular menses acute Irritable bowel syndrome with diarrhea chronic Abdominal pain acute Diarrhea acute Gastroenteritis acute GERD (gastroesophageal reflux disease) acute [facility] Work Phone: Evaluation note* Diagnosis Radiculopathy of lumbar region documented in this encounter [facility] note* Diagnosis Lumbar pain- Primary Lumbago documented in this encounter [facility] note* Diagnosis Onset Date Resolution Status Irritable bowel syndrome with diarrhea chronic Irregular menses acute Irritable bowel syndrome with diarrhea chronic Abdominal pain acute Diarrhea acute Gastroenteritis acute GERD (gastroesophageal reflux disease) acute Encounter for pre-employment health screening examination acute [facility] Work Phone: Evaluation note* Diagnosis Onset Date Resolution Status Irregular menses acute Irritable bowel syndrome with diarrhea chronic Abdominal pain acute Diarrhea acute Gastroenteritis acute GERD (gastroesophageal reflux disease) acute Encounter for pre-employment health screening examination acute [facility] Work Phone: Evaluation note* Diagnosis Onset Date Resolution Status Change in bowel habit acute Anxiety and depression chron ic GERD (gastroesophageal reflux disease) chronic HTN (hypertension) chronic Irregular menses acute [facility] Work Phone: Evaluation note* Diagnosis Lumbar pain- Primary Lumbago Lumbar radiculopathy Thoracic or lumbosacral neuritis or radiculitis, unspecified Urinary incontinence, unspecified type [facility] Diagnosis Lumbar pain Lumbago Lumbar radiculopathy Thoracic or lumbosacral neuritis or radiculitis, unspecified Urinary incontinence, unspecified type [facility] Diagnosis Lumbar pain- Primary Lumbago [facility]* Diagnosis Weakness of right lower extremity [facility]* Diagnosis Weakness of right lower extremity- Primary [facility]* Diagnosis Lumbar radiculopathy- Primary Thoracic or lumbosacral neuritis or radiculitis, unspecified Radiculopathy, lumbosacral region Thoracic or lumbosacral neuritis or radiculitis, unspecified Spinal stenosis, lumbosacral region documented in this [facility]* Diagnosis Lumbar pain- Primary Lumbago [facility]* Diagnosis Postop check- Primary Follow-up examination, following unspecified surgery [facility]* Diagnosis Lumbar radiculopathy- Primary Thoracic or lumbosacral neuritis or radiculitis, unspecified Lumbar pain Lumbago S/P spinal surgery Other postprocedural status [facility] Attachments The following attachments cannot be sent through Care Everywhere. * Lightheadedness or Faintness (K[place]) * Video: Anxiety: How to Change Anxious Thoughts (K[place]) documented in this [facility] Work Phone: Hospital Discharge instructions Additional Instructions Tramadol as needed for pain. Follow-up with your spine surgeon at [facility] in 1 week. Return to ED for bowel or bladder incontinence, leg weakness, or increased pain. [facility] Work Phone: Progress note No data available for this section [facility] Reason for referral (narrative)* Diagnostic Procedure Only (Routine) - Pending Review Specialty Diagnoses / Procedures Referred By Contac t Referred To Contact [facility] Diagnoses DUB (dysfunctional uterine bleeding) Procedures PELVIC US WHI US PELVIC NONOBSTETRIC REAL-TIME IMAGE COMPLETE Yahaira Ramos, [address] [place] [address] [facility] [address] [place] [address] Referral ID Status Reason Start Date Expiration Date Visits Requested Visits Authorized [id number] Pending Review Auto-Generat ed Referral 03/12/2022 03/12/2023 1 1 [facility] for referral (narrative)* Consultation (Urgent) - Pending Review Specialty Diagnoses / Procedures Referred By Contac t Referred To Contact Pain Medicine Diagnoses Radiculopathy of lumbar region Procedures [place] OFFICE/OUTPATIENT [facility] 60-74 MINUTES Toni Vallejo MD [address] [place] [address] [facility] [address] [place] [address] Referral ID Status Reason Start Date Expiration Date Visits Requested Visits Authorized [id number] Pending Review Perform Procedure 01/10/2023 01/10/2024 1 1 [facility] for referral (narrative)* Outpatient Procedure (Routine) - Pending Review Specialty Diagnoses / Procedures Referred By Contac t Referred To [facility] Diagnoses Generalized epilepsy (HCC) Seizure-like activity (HCC) Procedures EPIL EEG LEAD PLACEMENT EEG EXTENDED MONITORING 61-119 MINUTES ELECTROENCEPHALOGRAM REC COMA/SLEEP ONLY Benny Ryan MD [address] [place] [address] [facility] [address] [place] [address] Referral ID Status Reason Start Date Expiration Date Visits Requested Visits Authorized [id number] Pending Review Auto-Generat ed Referral 01/20/2023 01/21/2024 1 1 [facility] for referral (narrative)No reason for referral information availableWMer[facility] Work Phone: Summary Purpose Family History No Family History Records Found Relationship Condition Age at Onset Recorded Date/T gina mother Endometriosis Unknown Mixed anxiety depressive disorder Unknown grandfather Diabetes mellitus Unknown aunt Diabetes mellitus Unknown grandfather Malignant neoplasm Unknown Not Specified Hypertension Unknown High blood cholesterol Unknown father Mixed anxiety depressive disorder Unknown Bipolar I disorder Unknown Relationship Condition Age at Onset Recorded Date/T gina mother Endometriosis Unknown Mixed anxiety depressive disorder Unknown grandfather Diabetes mellitus Unknown aunt Diabetes mellitus Unknown grandfather Malignant neoplasm Unknown unrelated friend Hypertension Unknown High blood cholesterol Unknown father Mixed anxiety depressive disorder Unknown Bipolar I disorder Unknown Advance Directives No Advanced Directives Records FoundDocuments on File Type Date Recorded 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 ACP-Advance Directive ACP-Power of Certification Technician Advance Directive Response Recorded Date/ Time Advance Directives No August 9:13am Living Will No July 06, 021 11:04am Power of Certification Technician No July 06, 2021 11:04am Advance Directive Response Recorded Date/ Time Advance Directives No August 9:13am Living Will No April 27 2 4:33pm Power of Certification Technician No April 27, 2 022 4:33pm Advance Directive Response Recorded Date/ Time Advance Directives No August 8:13am Living Will No April 27 2 3:33pm Power of Certification Technician No April 27, 2 022 3:33pm Advance Directive Response Recorded Date/ Time Advance Directives No August 8:13am Living Will No August 11 1:08pm Power of Certification Technician No August 11, 2022 1:08pm Advance Directive Response Recorded Date/ Time Advance Directives No August 9:13am Living Will No August 11 2:08pm Power of Certification Technician No August 11, 2022 2:08pm Advance Directive Response Recorded Date/ Time Advance Directives No August 02, 2023 10:02am Living Will No September 28, 2023 8:08pm Power of Certification Technician No September 27 8:08pm Advance Directive Response Recorded Date/ Time Advance Directives No August 02, 2023 11:02am Living Will No November 02, 2023 8:06pm Power of Certification Technician No November 01 8:06pm Advance Directive Response Recorded Date/ Time Living Will No July 28 4:31pm Do you have a Healthcare Power of Certification Technician? No July 28, 2024 4:31pm Living Will No August 10 1:14pm Do you have a Healthcare Power of Certification Technician? No August 10, 2024 1:14pm Living Will Yes September 20, 10:36pm Do you have a Healthcare Power of Certification Technician? Yes September 20, 2024 10:36pm Name of Medical Power of Certification Technician Pt unaware September 20, 2024 10:36pm Living Will No November 12, 2024 1:03am Do you have a Healthcare Power of Certification Technician? Yes November 12, 2024 1:03am Name of Medical Power of Certification Technician SAE SOUSA November 12, 2024 1:03am Advance Directives No August 02, 2023 11:02am Chief Complaint and Reason for Visit Chief Complaint LOWER BACK PAIN, SWE LLING WHEN ON FEET LUMBER SPINE OSMEL ER FU MEDICATION REACTION Reason for Visit Acute exacerbation o f chronic low back pain Irregular menses Patellar tendonitis HNP (herniated nucleus pulposus), lumbar Seizures Depression with anxiety Abdominal discomfort Missed period Nausea and vomiting Chief Complaint OSMEL ER FU MEDICATION REACTION back Reason for Visit Seizures Depression with anxiety Abdominal discomfort Missed period Nausea and vomiting Chief Complaint back Lumbar spine cyst/cramping. MRI done at [facility] incidental finding IRREG MENSES Pap and 2 wk f/u E ORDERS Reason for Visit Herniated nucleus pu lposus, L5-S1, right Irregular menses Irregular menses Screen for STD (sexually transmitted disease) Pap smear for cervical cancer screening Chief Complaint back Lumbar spine cyst/cramping. MRI done at [facility] incidental finding IRREG MENSES Pap and 2 wk f/u E ORDERS low back Discuss Thyroid Reason for Visit Herniated nucleus pu lposus, L5-S1, right Irregular menses Irregular menses Screen for STD (sexually transmitted disease) Pap smear for cervical cancer screening Herniated nucleus pulposus, L5-S1, right Depression Elevated TSH Chief Complaint back Lumbar spine cyst/cramping. MRI done at [facility] incidental finding IRREG MENSES Pap and 2 wk f/u E ORDERS low back Discuss Thyroid SURGICAL CLEARANCE PRE OP EYE PROBLEM Reason for Visit Herniated nucleus pu lposus, L5-S1, right Irregular menses Irregular menses Screen for STD (sexually transmitted disease) Pap smear for cervical cancer screening Herniated nucleus pulposus, L5-S1, right Depression Elevated TSH Herniated nucleus pulposus, L5-S1, right Anxiety and depression HTN (hypertension) Pre-procedural general physical examination Chief Complaint CONSTANT DIARRHEA FERTILITY DISCUSSION LUMBAR PN, S/P SURGERY/RX HERE Consult E-ORDER E ORDERS Reason for Visit Irritable bowel synd jose l with diarrhea Irregular menses Irritable bowel syndrome with diarrhea Chief Complaint CONSTANT DIARRHEA FERTILITY DISCUSSION LUMBAR PN, S/P SURGERY/RX HERE Consult E-ORDER E ORDERS STOMACH ISSUES Reason for Visit Irritable bowel synd jose l with diarrhea Irregular menses Irritable bowel syndrome with diarrhea Abdominal pain Diarrhea Gastroenteritis GERD (gastroesophageal reflux disease) Chief Complaint CONSTANT DIARRHEA FERTILITY DISCUSSION LUMBAR PN, S/P SURGERY/RX HERE Consult E-ORDER E ORDERS STOMACH ISSUES UNSPECIFIED ABDOMINAL PAIN, DIARRHEA Reason for Visit Irritable bowel synd jose l with diarrhea Irregular menses Irritable bowel syndrome with diarrhea Abdominal pain Diarrhea Gastroenteritis GERD (gastroesophageal reflux disease) Chief Complaint CONSTANT DIARRHEA FERTILITY DISCUSSION LUMBAR PN, S/P SURGERY/RX HERE Consult E-ORDER E ORDERS STOMACH ISSUES UNSPECIFIED ABDOMINAL PAIN, DIARRHEA PE NON DOT DRUG SCREEN/ [place]- PRE- EMPLOYMENT Reason for Visit Irritable bowel synd jose l with diarrhea Irregular menses Irritable bowel syndrome with diarrhea Abdominal pain Diarrhea Gastroenteritis GERD (gastroesophageal reflux disease) Encounter for pre-employment health screening examination Chief Complaint FERTILITY DISCUSSION LUMBAR PN, S/P SURGERY/RX HERE Consult E-ORDER E ORDERS STOMACH ISSUES UNSPECIFIED ABDOMINAL PAIN, DIARRHEA PE NON DOT DRUG SCREEN/ [place]- PRE- EMPLOYMENT Reason for Visit Irregular menses Irritable bowel syndrome with diarrhea Abdominal pain Diarrhea Gastroenteritis GERD (gastroesophageal reflux disease) Encounter for pre-employment health screening examination Chief Complaint CHK UP DISCUSS CONTROL FLANK PAIN Reason for Visit Change in bowel habi t Anxiety and depression GERD (gastroesophageal reflux disease) HTN (hypertension) Irregular menses Chief Complaint CHK UP DISCUSS CONTROL FLANK PAIN Back pain, radiating to legs Reason for Visit Change in bowel habi t Anxiety and depression GERD (gastroesophageal reflux disease) HTN (hypertension) Irregular menses Chief Complaint Admit Date ABD PAIN July 28, 2024 2: 41pm ABD PAIN August 10, 2024 1 2:13pm New PCOS dx September 06, 2024 3:19pm UTI September 20, 2024 8:52pm BACK PAIN, BRUISING TO BLE November 12, 025 12:57am Reason for Visit Admit Date Elevated androgen levels September 06, 2024 3:19pm Oligomenorrhea September 06, 2024 3:19pm Reason for Referral Specialty Diagnoses / Procedures Referred By Contac t Referred To Contact Physical Therapy Diagnoses Lumbar pain S/P spinal surgery Procedures NC OFFICE/OUTPATIENT NEW [facility]IGH MDM 60-74 MINUTES Fide Lewis NP [address] [place] [address] Referral ID Status Reason Start Date Expiration Date Visits Requested Visits Authorized [id number] Pending Review Eval and Treat 10/06/2022 04/04/2023 99 99 Scheduling Instructions Refer to PT Lumbar/core focus Postural Stability Hip abductor strengthening LE flexibility and mobility Specialty Diagnoses / Procedures Referred By Contac t Referred To Contact Radiology Diagnoses Weakness of right lower extremity Procedures MR lumbar spine wo contrast Toni Vallejo MD [address] [place] [address] Referral ID Status Reason Start Date Expiration Date Visits Re quested Visits Authorized [id number] Closed 06/23/2022 12/20/2022 1 1 Specialty Diagnoses / Procedures Referred By Contac t Referred To Contact Radiology Diagnoses Lumbar pain Lumbar radiculopathy Urinary incontinence, unspecified type Procedures MR lumbar spine w and wo contrast Fide Lewis NP [address] [place] [address] Referral ID Status Reason Start Date Expiration Date V isits Requested Visits Authorized [id number] Pending Review 10/04/2023 10/03/2024 1 1 Specialty Diagnoses / Procedures Referred By Contac t Referred To Contact Physical Therapy Diagnoses Lumbar pain Procedures NC OFFICE/OUTPATIENT NEW HIGH MDM 60-74 MINUTES Toni Vallejo MD 1 [facility] [address] [place] [address] Referral ID Status Reason Start Date Expiration Date Visits Requested Visits Authorized [id number] Pending Review Eval and Treat 02/23/2023 08/22/2023 99 99 Specialty Diagnoses / Procedures Referred By Contac t Referred To Contact Radiology Diagnoses Lumbar radiculopathy Procedures MR lumbar spine w and wo contrast Toni Vallejo MD 1 [facility] [place] [address] [place] [address] Referral ID Status Reason Start Date Expiration Date Visits Re quested Visits Authorized [id number] Closed 12/08/2022 06/06/2023 1 1 Specialty Diagnoses / Procedures Referred By Contac t Referred To Contact Neurology / MULTIPLE SCLEROSIS Diagnoses Nonintractable epilepsy without status epilepticus, unspecified epilepsy type (HCC) Procedures CONSULT TO NEUROLOGY OFFICE/OUTPATIENT [facility] 60-74 MINUTES Taz Mackenzie MD [address] [place] [address] [place] [address] Referral ID Status Reason Start Date Expiration Date Visits Requested Visits Authorized [id number] Authorized PCP Requested Referral 08/25/2022 01/27/2023 1 1 Specialty Diagnoses / Procedures Referred By Contac t Referred To Contact Ophthalmology / MULTIPLE SCLEROSIS Diagnoses Papilledema Optic neuritis Idiopathic intracranial hypertension Procedures CONSULT TO OPHTHALMOLOGY OFFICE/OUTPATIENT [facility] 60-74 MINUTES Taz Mackenzie MD [id number] [place] [address] Referral ID Status Reason Start Date Expiration Date Visits Requested Visits Authorized [id number] Authorized PCP Requested Referral 08/25/2022 01/27/2023 1 1 Specialty Diagnoses / Procedures Referred By Contac t Referred To Contact MR IMAGING Diagnoses Papilledema Optic neuritis Idiopathic intracranial hypertension Procedures MRV BRAIN WO/W IVCON MRA; HEAD W & WO CONTRAST Taz Mackenzie MD [address] [place] [address] Mr Imaging Referral ID Status Reason Start Date Expiration Date Visits Requested Visits Authorized [id number] Additional Clinical Info Needed Auto-Generat ed Referral 08/25/2022 09/24/2023 1 1 Specialty Diagnoses / Procedures Referred By Contac t Referred To Contact MR IMAGING Diagnoses Papilledema Optic neuritis Idiopathic intracranial hypertension Procedures MRI ORBIT WO/W IVCON MRI ORBIT FACE & NECK W/O & W/CONTRAST MATRL Taz Mackenzie MD [address] [place] [address] Mr Imaging Referral ID Status Reason Start Date Expiration Date Visits Requested Visits Authorized [id number] Additional Clinical Info Needed Auto-Generat ed Referral [...] ized section and content) DATE CREATED AUTHOR 05/06/2019 [facility] DATE CREATED AUTHOR AUTHOR'S ORGANIZ ATION 11/13/2020 [facility] DATE CREATED AUTHOR AUTHOR'S ORGANIZ ATION 12/03/[address] [facility] ([place]) DATE CREATED AUTHOR AUTHOR'S ORGANIZ ATION 11/24/2022 [facility] DATE CREATED AUTHOR AUTHOR'S ORGANIZ ATION 02/11/2023 [facility] DATE CREATED AUTHOR AUTHOR'S ORGANIZ ATION 07/28/2023 [facility] DATE CREATED AUTHOR AUTHOR'S ORGANIZ ATION 12/15/2023 [facility] DATE CREATED AUTHOR AUTHOR'S ORGANIZ ATION 11/29/2024 [facility] Reason for Visit (unrecogniz ed section and content) Reason Comments Headache Reason Comments Follow Up Check up since ayde milange been a year. Also cant hold urine at times urinates on herself if she don't make it. Amenorrhea Skips months it come s when it wants too. Reason Comments New Patient Evaluation Specialty Diagnoses / Procedures Referred By Contac t Referred To Contact MR IMAGING Diagnoses Papilledema Optic neuritis Idiopathic intracranial hypertension Procedures MRI ORBIT WO/W IVCON MRI ORBIT FACE & NECK W/O & W/CONTRAST MATRL Taz Mackenzie MD [address] [place] [address] Mr Imaging Referral ID Status Reason Start Date Expiration Date V isits Requested Visits Authorized [id number] Closed Auto-Generate d Referral 08/26/2022 10/25/2022 1 1 Specialty Diagnoses / Procedures Referred By Contac t Referred To Contact MR IMAGING Diagnoses Papilledema Optic neuritis Idiopathic intracranial hypertension Procedures MRV BRAIN WO/W IVCON MRA; HEAD W & WO CONTRAST Taz Mackenzie MD [address] [place] [address] Mr Imaging Referral ID Status Reason Start Date Expiration Date V isits Requested Visits Authorized [id number] Closed Auto-Generate d Referral 08/26/2022 10/25/2022 1 1 Reason Comments Papilledema Evaluation Reason Onset Date Comments Back Pain 12/13/2022 Specialty Diagnoses / Procedures Referred By Contac t Referred To Contact Diagnoses IIH (idiopathic intracranial hypertension) Elevation of optic disc, bilateral Procedures THERAPEUTIC SPINAL PUNCTURE DRAINAGE CSF SPINAL PUNCTURE THERAPEUTIC, DRAIN CSF VIA NEEDLE OR CATH [facility] [address] [place] [address] Referral ID Status Reason Start Date Expiration Date Visits Re quested Visits Authorized [id number] 1 1 Reason Comments R retro-orbital headache optic disc elevation Specialty Diagnoses / Procedures Referred By Contac t Referred To Contact Radiology Diagnoses Lumbar radiculopathy Procedures MR lumbar spine w and wo contrast Toni Vallejo MD 1 [facility] [place] [address] [place] [address] Referral ID Status Reason Start Date Expiration Date Visits Re quested Visits Authorized [id number] Closed 12/08/2022 06/06/2023 1 1 Reason Onset Date Comments Error (VOID this visit) 01/10/2023 Reason Onset Date Comments Fast-track injection 01/10/2023 Reason Comments New Patient Epilepsy Reason Comments Other Is EMU admit necessa ry if muscle spasms are caused by Tramadol.? Reason Comments VEEG testing Reason Comments Leg Pain Follow-up Back Pain Reason Comments Follow-up Back Pain Leg Pain Specialty Diagnoses / Procedures Referred By Contac t Referred To Contact Radiology Diagnoses Lumbar pain Lumbar radiculopathy Urinary incontinence, unspecified type Procedures MR lumbar spine w and wo contrast Fide Lewis NP 1 [facility] [place] [address] [place] [address] Referral ID Status Reason Start Date Expiration Date Visits Re quested Visits Authorized [id number] Closed 10/04/2023 10/03/2024 1 1 Reason Comments Follow-up MRI review Reason Onset Date Comments Back Pain 09/30/2023 Reason Onset Date Comments Letter for School/Work 11/21/2023 Reason Onset Date Comments Back Pain 01/27/2024 Reason Onset Date Comments Advice Only 07/23/2022 Specialty Diagnoses / Procedures Referred By Contac t Referred To Contact Radiology Diagnoses Weakness of right lower extremity Procedures MR lumbar spine wo contrast Toni Vallejo MD 1 [facility] [place] [address] [place] [address] Referral ID Status Reason Start Date Expiration Date Visits Re quested Visits Authorized [id number] Closed 06/23/2022 12/20/2022 1 1 Specialty Diagnoses / Procedures Referred By Contac t Referred To Contact Radiology Diagnoses Weakness of right lower extremity Procedures MR thoracic spine wo contrast Toni Vallejo MD 1 [facility] [employer] [address] [place] [address] [facility] [address] [place] [address] Referral ID Status Reason Start Date Expiration Date Visits Re quested Visits Authorized [id number] Closed 06/23/2022 12/20/2022 1 1 Reason Onset Date Comments PCP clearance 07/28/2022 Reason Comments Follow-up Reason Onset Date Comments Letter for School/Work 08/25/2022 Specialty Diagnoses / Procedures Referred By Contac t Referred To Contact Diagnoses Radiculopathy, lumbosacral region Spinal stenosis, lumbosacral region LUMBAR/SACRAL RADICULOPATHY LUMBAR/SACRAL STENOSIS Procedures NC PROCTOR FACETECTOMY & FORAMOTOMY 1 VRT SGM LUMBAR NC PROCTOR FACETECTOMY&FORAMOT 1 VRT SGM EA ADDL SGM NC MICROSURG TQS REQ USE OPERATING MICROSCOPE Lumbar MIS Right L5/S1 Laminectomy Toni Vallejo MD 1 [facility] [address] [place] [address] Referral ID Status Reason Start Date Expiration Date Visits Re quested Visits Authorized [id number] 08/02/2022 1 1 Reason Onset Date Comments Nurse triage 09/15/2022 Reason Comments Wound Check Post-op Problem Reason Onset Date Comments Nurse Navigation 09/23/2022 triage Reason Onset Date Comments Follow Up Call 09/24/2022 Reason Comments Post-op Goals (unrecognized section and content) Goals may be documented in a n alternate section No data available for this sectionGoals may be documented in an alternate sectionGoals may be documented in an alternate sectionGoals may be documented in an alternate sectionGoals may be documented in an alternate sectionGoals may be documented in an alternate sectionGoals may be documented in an alternate sectionGoals may be documented in an alternate sectionGoals may be documented in an alternate sectionGoals may be documented in an alternate sectionGoals may be documented in an alternate sectionGoals may be documented in an alternate sectionGoals may be documented in an alternate sectionGoals may be documented in an alternate sectionGoals may be documented in an alternate sectionGoals may be documented in an alternate sectionGoals may be documented in an alternate sectionGoals may be documented in an alternate sectionGoals may be documented in an alternate section Care Team (unrecognized sect ion and content) Automatic Fabric Cutter Relationship Specialty Start Date End Date Ishmael Vu MD PCP - General Internal Medicine 06/13/18 Team Status: Active Member Role Status Dates Dr. sIhmael Vu MD Family Provider Active Dr. Ishmael Vu MD Primary Care Provider Active Team Status: Inactive Member Role Status Dates Dr. Ishmael Vu MD Primary Care Provider, Refer ring Provider Active Dr. Vincent Meza DO Attending Provider Active Team Status: Inactive Member Role Status Dates Dr. Ishmael Vu MD Primary Care Provider, Refer ring Provider Active Abbey Noble BODY PIERCER, BODY PIERCER-C Attending Provider Active Team Status: Inactive Member Role Status Dates Dr. Ishmael Vu MD Primary Care Provider, Refer ring Provider Active BALTA Palmer Attending Provider Active Team Status: Inactive Member Role Status Dates Dr. Ishmael Vu MD Primary Care Provider Active Dr. Génesis Mueller MD Attending Provider, Emergency Provider Active Team Status: Inactive Member Role Status Dates Dr. Ishmael Vu MD Primary Care Provider Active Abbey Noble BODY PIERCER, BODY PIERCER-C Attending Provider Active Team Status: Inactive Member Role Status Dates Dr. Ishmael Vu MD Primary Care Provider Active Abbey Noble BODY PIERCER, BODY PIERCER-C Attending Provider, Referring Provider Active Team Status: Inactive Member Role Status Dates Dr. Ishmael Vu MD Primary Care Provider Active BALTA Palmer Attending Provider, Referring Pro vider Active Team Status: Active Member Role Status Dates Dr. Ishmael Vu MD Primary Care Provider Active Vero Hendrickson PA Attending Provider Active Team Status: Inactive Member Role Status Dates Dr. Ishmael Vu MD Primary Care Provider Active Dr. Gregory Neil DO Emergency Provider Active Team Status: Inactive Member Role Status Dates Dr. Ishmael Vu MD Primary Care Provider Active Vero Hendrickson PA Attending Provider Active Automatic Fabric Cutter Relationship Specialty Start Date End Date Ishmael Vu MD PCP - General Internal Medicine 06/13/18 Automatic Fabric Cutter Relationship Specialty Start Date End Date Ishmael Vu MD PCP - General Internal Medicine 06/13/18 Automatic Fabric Cutter Relationship Specialty Start Date End Date Ishmael Vu MD PCP - General Internal Medicine 06/13/18 Automatic Fabric Cutter Relationship Specialty Start Date End Date Ishmael Vu MD PCP - General Internal Medicine 06/13/18 Automatic Fabric Cutter Relationship Specialty Start Date End Date Ishmael Vu MD PCP - General Internal Medicine 06/13/18 Automatic Fabric Cutter Relationship Specialty Start Date End Date Ishmael Vu [address] [place] [address] PCP - General 08/19/20 Automatic Fabric Cutter Relationship Specialty Start Date End Date Ishmael uV MD PCP - General Internal Medicine 06/13/18 Automatic Fabric Cutter Relationship Specialty Start Date End Date Ishmael Vu MD PCP - General Internal Medicine 06/13/18 Automatic Fabric Cutter Relationship Specialty Start Date End Date Ishmael Vu MD PCP - General Internal Medicine 06/13/18 Automatic Fabric Cutter Relationship Specialty Start Date End Date Ishmael Vu [address] [place] [address] PCP - General 08/19/20 Team Status: Inactive Member Role Status Dates Dr. Ishmael Vu MD Primary Care Provider, Refer ring Provider Active Alexandro Alvarado BODY PIERCER, BODY PIERCER-C Attending Provider Active Team Status: Inactive Member Role Status Dates Dr. Ishmael Vu MD Primary Care Provider, Refer ring Provider Active Dr. Adrian Payne DO Attending Provider Active Team Status: Active Member Role Status Dates Dr. Ishmael Vu MD Primary Care Provider Active RAHEEM MATUTE Attending Provider, Referring Provider A ctive Team Status: Inactive Member Role Status Dates Dr. Ishmael Vu MD Primary Care Provider Active Dr. Adrian Payne DO Attending Provider, Referring Provider Active Team Status: Active Member Role Status Dates Dr. Ishmael Vu MD Primary Care Provider Active Dr. Adrian Payne DO Attending Provider, Referring Provider Active Automatic Fabric Cutter Relationship Specialty Start Date End Date MirellaIshmael B [address] [place] [address] PCP - General 08/19/20 Automatic Fabric Cutter Relationship Specialty Start Date End Date Mirella Vishmaxime B [address] [place] [address] PCP - General 08/19/20 Automatic Fabric Cutter Relationship Specialty Start Date End Date Ishmael Vu MD PCP - General Internal Medicine 06/13/18 Automatic Fabric Cutter Relationship Specialty Start Date End Date Ishmael Vu MD PCP - General Internal Medicine 06/13/18 Automatic Fabric Cutter Relationship Specialty Start Date End Date Ishmael Vu MD PCP - General Internal Medicine 06/13/18 Team Status: Inactive Member Role Status Dates Dr. Ishmael Vu MD Primary Care P tristan, Attending Provider, Referring Provider Active Team Status: Active Member Role Status Dates Dr. Ishmael Vu MD Primary Care P tristan, Attending Provider, Referring Provider Active Team Status: Inactive Member Role Status Dates Dr. Ishmael Vu MD Primary Care Provider, Atten ding Provider Active Automatic Fabric Cutter Relationship Specialty Start Date End Date MirellaIshmael B [address] [place] [address] PCP - General 08/19/20 Automatic Fabric Cutter Relationship Specialty Start Date End Date Ishmael Vu PCP - General 08/19/20 Team Status: Inactive Member Role Status Dates Dr. Ishmael Vu MD Primary Care Provider, Refer ring Provider Active Ankit GIFFORD PA Attending Provider Active Team Status: Inactive Member Role Status Dates Dr. Ishmael Vu MD Primary Care Provider Active Ankit GIFFROD PA Attending Provider, Referring Provi kasia Active Team Status: Inactive Member Role Status Dates Dr. Ishmael Vu MD Primary Care Provider Active RAHEEM MATUTE Attending Provider, Referring Provider A ctive Team Status: Inactive Member Role Status Dates Dr. Ishmael Vu MD Primary Care Provider Active Dr. Babak Whitaker MD Emergency Provider Active Automatic Fabric Cutter Relationship Specialty Start Date End Date Ishmael Vu [address] [place] [address] PCP - General Internal Medicine 10/04/23 Automatic Fabric Cutter Relationship Specialty Start Date End Date Ishmael Vu [address] [place] [address] PCP - General Internal Medicine 10/04/23 Automatic Fabric Cutter Relationship Specialty Start Date End Date Ishmael Vu [address] [place] [address] PCP - General Internal Medicine 10/04/23 Automatic Fabric Cutter Relationship Specialty Start Date End Date Ishmael Vu PCP - General 08/19/20 10/03/23 Ishmael Vu [address] [place] [address] PCP - General Internal Medicine 10/04/23 Team Status: Inactive Member Role Status Dates Dr. Ishmael Vu MD Primary Care Provider Active Dr. Babak Whitaker MD Attending Provider, Emergency Pro vider Active Team Status: Inactive Member Role Status Dates Dr. Ishmael Vu MD Primary Care Provider Active Aki Kenyon MD Emergency Provider Active Automatic Fabric Cutter Relationship Specialty Start Date End Date Zoë Vube B [address] [facility] [address] [place] [address] PCP - General Internal Medicine 10/04/23 Automatic Fabric Cutter Relationship Specialty Start Date End Date Olesadiqe, Vishewongbe B [address] [place] [address] PCP - General 08/19/20 Automatic Fabric Cutter Relationship Specialty Start Date End Date Olesadiqe, Efewongbe B [address] [place] [address] PCP - General 08/19/20 Automatic Fabric Cutter Relationship Specialty Start Date End Date Olesadiqe, Vishewongbe B [address] [place] [address] PCP - General 08/19/20 Automatic Fabric Cutter Relationship Specialty Start Date End Date Leee, Vishewongbe B [address] [place] [address] PCP - General 08/19/20 Automatic Fabric Cutter Relationship Specialty Start Date End Date Oleghe, Efewongbe B [address] [place] [address] PCP - General 08/19/20 Automatic Fabric Cutter Relationship Specialty Start Date End Date Oleghe, Efewongbe B [address] [place] [address] PCP - General 08/19/20 Automatic Fabric Cutter Relationship Specialty Start Date End Date Olesadiqe, Efewongbe B [address] [place] [address] PCP - General 08/19/20 Automatic Fabric Cutter Relationship Specialty Start Date End Date LeeeVishewongbe B [address] [place] [address] PCP - General 08/19/20 Automatic Fabric Cutter Relationship Specialty Start Date End Date Olesadiqe Efewongbe B [address] [place] [address] PCP - General 08/19/20 Automatic Fabric Cutter Relationship Specialty Start Date End Date Oleghe, Efewongbe [address] [place] [address] PCP - General 08/19/20 Automatic Fabric Cutter Relationship Specialty Start Date End Date Leee Efewongbe B [address] [place] [address] PCP - General 08/19/20 Team Status: Active Member Role Status Dates Chika HERNANDEZ DO Primary Care Provider Active Team Status: Inactive Member Role Status Dates Aki Kenyon MD Attending Provider Active Star t: July 28, 2024 End: July 28, 2024 Aki Kenyon MD Emergency Provider Active Star t: July 28, 2024 End: July 28, 2024 No Primary Care Physician Primary Care Provider Active Start: July 28, 2024 End: July 28, 2024 Team Status: Inactive Member Role Status Dates No Primary Care Physician Primary Care Provider Active Start: August 10, 2024 End: August 10, 2024 Dr. Babak Whitaker MD Attending Provider Active S tart: August 10, 2024 End: August 10, 2024 Dr. Babak Whitaker MD Emergency Provider Active S tart: August 10, 2024 End: August 10, 2024 Team Status: Inactive Member Role Status Dates Chika HERNANDEZ DO Primary Care Provider Active Start: August 22, 2024 End: August 22, 2024 Chika HERNANDEZ DO Attending Provider Active Start: August 22, 2024 End: August 22, 2024 Team Status: Inactive Member Role Status Dates Chika HERNANDEZ DO Primary Care Provider Active Start: September 06, 2024 End: September 06, 2024 Chika Pascualnger VSC, DO Referring Provider Active Start: September 06, 2024 End: September 06, 2024 Abbey Noble NP, BODY PIERCER-C Attending Provider Active Start: September 06, 2024 End: September 06, 2024 Team Status: Inactive Member Role Status Dates Chika Oanh VSC, DO Primary Care Provider Active Start: September 20, 2024 End: September 21, 2024 Dr. Levi Chapa DO Attending Provider Active Start: September 20, 2024 End: September 21, 2024 Dr. Levi Chapa DO Referring Provider Active Start: September 20, 2024 End: September 21, 2024 Dr. Levi Chapa DO Emergency Provider Active Start: September 20, 2024 End: September 21, 2024 Team Status: Inactive Member Role Status Dates Chika Pascualnger VSC, DO Primary Care Provider Active Start: November 12, 2024 End: November 12, 2024 Dr. Toni Carson MD Emergency Provider Active Start: November 12, 2024 End: November 12, 2024 Source Comments (unrecognize d section and content) In the event this informatio n is protected by the Federal Confidentiality of Alcohol and Drug Abuse Patient Records regulations: The Federal rules restrict any use of the information to criminally investigate or prosecute any alcohol or drug abuse patient.[facility] the event this information is protected by the Federal Confidentiality of Alcohol and Drug Abuse Patient Records regulations: The Federal rules restrict any use of the information to criminally investigate or prosecute any alcohol or drug abuse patient.[facility] the event this information is protected by the Federal Confidentiality of Alcohol and Drug Abuse Patient Records regulations: The Federal rules restrict any use of the information to criminally investigate or prosecute any alcohol or drug abuse patient.[facility] the event this information is protected by the Federal Confidentiality of Alcohol and Drug Abuse Patient Records regulations: The Federal rules restrict any use of the information to criminally investigate or prosecute any alcohol or drug abuse patient.[facility] the event this information is protected by the Federal Confidentiality of Alcohol and Drug Abuse Patient Records regulations: The Federal rules restrict any use of the information to criminally investigate or prosecute any alcohol or drug abuse patient.[facility] the event this information is protected by the Federal Confidentiality of Alcohol and Drug Abuse Patient Records regulations: The Federal rules restrict any use of the information to criminally investigate or prosecute any alcohol or drug abuse patient.[facility] the event this information is protected by the Federal Confidentiality of Alcohol and Drug Abuse Patient Records regulations: The Federal rules restrict any use of the information to criminally investigate or prosecute any alcohol or drug abuse patient.[facility] the event this information is protected by the Federal Confidentiality of Alcohol and Drug Abuse Patient Records regulations: The Federal rules restrict any use of the information to criminally investigate or prosecute any alcohol or drug abuse patient.[facility] the event this information is protected by the Federal Confidentiality of Alcohol and Drug Abuse Patient Records regulations: The Federal rules restrict any use of the information to criminally investigate or prosecute any alcohol or drug abuse patient.[facility] the event this information is protected by the Federal Confidentiality of Alcohol and Drug Abuse Patient Records regulations: The Federal rules restrict any use of the information to criminally investigate or prosecute any alcohol or drug abuse patient.[facility] the event this information is protected by the [facility] Confidentiality of Alcohol and Drug Abuse Patient Records regulations: The Federal rules restrict any use of the information to criminally investigate or prosecute any alcohol or drug abuse patient.[facility] Hospital[facility] the event this information is protected by the Federal Confidentiality of Alcohol and Drug Abuse Patient Records regulations: The Federal rules restrict any use of the information to criminally investigate or prosecute any alcohol or drug abuse patient.[facility] Scheduled Active and Recently Administ ered Medications (unrecognized section and content) Medication Order 09/12/2022 09/13/2022 09/14/2022 acetaminophen (Tylenol) tablet 1,000 mg (COMPLETED) 1,000 mg, Oral, Once, On Tue09/14/22 at 1400, For 1 dose, Preprocedure, Maximum dose of acetaminophen is 4000 mg from all sources in 24 hours. Do not administer if patient has taken tylenol <4 hours earlier. Do not give if contraindicated ie. patient has active liver disease or cirrhosis. 1404 (Given - Provid er: Marquis Rodriguez RN) ceFAZolin in dextrose 4% (Ancef) IVPB 2,000 mg (COMPLETED) 2,000 mg, IntraVENous, Administer over 30 Minutes, Machine Hoop Maker Helper to O.R., On Tue09/14/22 at 1400, For 1 dose, Preprocedure, Administer within 1 hour prior to incision. Recommend to repeat in 3-4 hours after initial dose if still intra-op. premix bag, Suspected Indication (Select all that apply): Surgical Prophylaxis 1700 (Given - Provid er: KRYSTAL Luciano CRNA) famotidine (Pepcid) tablet 20 mg (COMPLETED) 20 mg, Oral, Once, On Tue09/14/22 at 1400, For 1 dose, Preprocedure 1405 (Given - Provid er: Marquis Rodriguez RN) sodium chloride 0.9% (NS) flush 10 mL 10 mL, IntraVENous, Every 12 hours scheduled (2 times per day), First dose on Tue09/14/22 at 2100, Preprocedure 2100 (Canceled Entry - Provider: Automatic Discharge Provider - Comment: Automatically canceled at discontinue of medication order) sodium chloride 0.9% (NS) flush 5-40 mL 5-40 mL, IntraVENous, Every 12 hours, First dose on Tue09/14/22 at 1400, Preprocedure, For Line Patency: Peripheral IV = 5 mL; Midline or Central Line = 10 mL/lumen. If following IV push medication, administer flush at same rate as the IV push. Flush volume is determined by type of infusion therapy being given. For non-viscous solutions use: Peripheral IV = 5 mL Midline or Central Line = 10 mL/lumen For viscous solutions (i.e. blood components, parenteral nutrition, contrast media, or after obtaining blood sample) use: Peripheral IV = 10 mL Midline or Central Line = 20 mL/lumen 1400 (Canceled Entry - Provider: Automatic Discharge Provider - Comment: Automatically canceled at discontinue of medication order) Continuous Medication Order 09/12/2022 09/13/2022 09/14/2022 lactated Ringer's (LR) infusion 50 mL/hr, IntraVENous, Continuous, Starting on Tue09/14/22 at 1400, Preprocedure, Upon admission to sameday - please start iv if patient does not have iv access. Use 500ml NS for patients on dialysis. 1406 (New Bag - Prov ider: Marquis Rodriguez RN)1639 (Continued by Anesthesia - Provider: KRYSTAL Luciano CRNA)1805 (Anesthesia Volume Adjustment - Provider: Guille Escamilla, GRAPHIC DESIGN INTERN - ONCOLOGY RADIATION PHYSICIAN) PRN Medication Order 09/12/2022 09/13/2022 09/14/2022 ALPRAZolam (Xanax) disintegrating tablet 0.25 mg (COMPLETED) 0.25 mg, Oral, PRN, anxiety, Starting on Tue09/14/22 at 1351, For 1 dose, Preprocedure, Using dry hands, place tablet on top of tongue and allow to disintegrate. Administration with water is not necessary. 1405 (Given - Provid er: Marquis Rodriguez RN) gelatin absorbable (Gelfoam) sponge (CANCELED) As needed, Starting on Tue09/14/22 at 1721, Intraprocedure 1721 (Given - Provid er: Toni Vallejo MD - Comment: COMBINED WITH 5,000 UNITS THROMBIN) ondansetron (Zofran) injection 4 mg (COMPLETED) 4 mg, IntraVENous, Once PRN, nausea, Starting on Tue09/14/22 at 1839, For 1 dose, Recovery (only), Initial antiemetic therapy. 1953 (Given - Provid er: Gladys Huerta RN) sodium chloride 0.9 % bolus 500 mL (CANCELED) 500 mL, IntraVENous, at 1,000 mL/hr, Administer over 0.5 Hours, PRN, Anti-nausea, Starting on Tue09/14/22 at 1839, Recovery (only), Indications: Anti-nausea 1955 (New Bag - Prov ider: Gladys Huerta RN)2025 (Due: Stopped - Provider: Gladys Huerta RN) sodium chloride 0.9 % infusion 5-250 mL/hr, IntraVENous, PRN, if patient receiving piggyback infusions and maintenance fluids are not ordered OR KVO fluids to protect IV site / prevent frequent line interruptions/ long duration, Starting on Tue09/14/22 at 1351, Preprocedure, For piggyback infusion, administer at same rate as piggyback for a total of 25 mL. Enter 25 mL into dose field and piggyback rate into rate field of order. If piggyback is infusing at a rate less than 100 mL/hr, enter 25 mL into dose field and 100 mL/hr into rate field of order. For KVO fluids, enter rate of 20 mL/hr or less into rate field of order. sodium chloride 0.9 % infusion 5-250 mL/hr, IntraVENous, PRN, if patient receiving piggyback infusions and maintenance fluids are not ordered OR KVO fluids to protect IV site / prevent frequent line interruptions / long duration, Starting on Tue09/14/22 at 1351, Preprocedure, For piggyback infusion, administer at same rate as piggyback for a total of 25 mL. Enter 25 mL into dose field and piggyback rate into rate field of order. If piggyback is infusing at a rate less than 100 mL/hr, enter 25 mL into dose field and 100 mL/hr into rate field of order. For KVO fluids, enter rate of 20 mL/hr or less into rate field of order. sodium chloride 0.9 % irrigation solution (CANCELED) As needed, Starting on Tue09/14/22 at 1722, Intraprocedure 1722 (Given - Provid er: Toni Vallejo MD) sodium chloride 0.9% (NS) flush 10 mL 10 mL, IntraVENous, PRN, line care, Starting on Tue09/14/22 at 1351, Preprocedure, After every IV line use sodium chloride 0.9% (NS) flush 5-40 mL 5-40 mL, IntraVENous, PRN, line care, After every IV line use, Starting on Tue09/14/22 at 1351, Preprocedure, For Line Patency: Peripheral IV = 5 mL; Midline or Central Line = 10 mL/lumen. If following IV push medication, administer flush at same rate as the IV push. Flush volume is determined by type of infusion therapy being given. For non-viscous solutions use: Peripheral IV = 5 mL Midline or Central Line = 10 mL/lumen For viscous solutions (i.e. blood components, parenteral nutrition, contrast media, or after obtaining blood sample) use: Peripheral IV = 10 mL Midline or Central Line = 20 mL/lumen SURGIFLO hemostatic matrix with thrombin kit (CANCELED) As needed, Starting on Tue09/14/22 at 1719, Intraprocedure 1719 (Given - Provid er: Toni Vallejo MD - Comment: GIVEN AT OPERATIVE SITE) thrombin (recombinant) (Recothrom) topical solution (CANCELED) As needed, Starting on Tue09/14/22 at 1720, Intraprocedure 1720 (Given - Provid er: Toni Vallejo MD - Comment: COMBINED WITH GELFOAM GIVEN AT OPERATIVE SITE) tranexamic acid (Cyklokapron) injection (COMPLETED) Continuous PRN, Starting on Tue09/14/22 at 1719, Intraprocedure 1700 (Given - Provid er: KRYSTAL Luciano CRNA)1719 (New Bag - Provider: Toni Vallejo MD - Comment: MIXED WITH 90 CC NORMAL SALINE GIVEN AT OPERATIVE SITE)1753 (Given - Provider: KRYSTAL Luciano CRNA) FOR RECORDS PERTAINING TO PATIENTS WHO ARE [...] BE BASED ON THE PRIMARY CLINICAL RECORDS. [facility] [employer] [facility]. provides no warranty or guarantee of the accuracy or completeness of information in this document.
[2025-01-02 06:20] LABS: Internal QC Validated? YES +Cl - CLEAR BKGD; Pregnancy, Serum, hCG Quali. NEGATIVE Negative
[2025-01-02 06:37] LABS: ALB/GLOB Ratio 1.6 RATIO (0.9-2.4); AST(SGOT) 27 U/L (<=31); Alanine Aminotransfer ALT/SGPT 16 U/L (<=34); Albumin, Serum 4.6 g/dL (3.5-5.0); Alkaline Phosphatase 68 U/L (35-104); Amphetamine Urine NEGATIVE (<1000 ng/mL); Anion Gap 20 (5-15); BUN 8 mg/dL (4-19); BUN/Creat Ratio 11.1 RATIO (10-20); Barbiturate Urine NEGATIVE (< 200 ng/mL); Benzodiazepine Urine NEGATIVE (< 200 ng/mL); Buprenorphine Urine NEGATIVE (< 200 ng/mL); Calcium,Total 9.7 mg/dL (7.6-11.0); Carbon Dioxide 18.3 mmol/L (21.0-32.0); Chloride 101 mmol/L (98-108); Cocaine Urine NEGATIVE (< 300 ng/mL); Creatinine, Serum 0.68 mg/dL (0.70-1.20); EST Glomerular Filtration Rate 123 (>60); Estimated Creatinine Clearance 120.85 ml/min (50-250); Fentanyl, Urine NEGATIVE; Globulin 2.9 g/dL (2.2-4.2); Glucose 109 mg/dL (70-99); Methadone Urine NEGATIVE (< 300 ng/mL); Opiates Urine NEGATIVE (< 300 ng/mL); Oxycodone, Urine NEGATIVE (< 100 ng/mL); PCP Urine NEGATIVE (< 25 ng/mL); Potassium 3.6 mmol/L (3.3-5.1); Protein, Total 7.5 g/dL (5.9-8.4); Sodium Level 139 mmol/L (133-145); THC Urine NEGATIVE (< 50 ng/mL)
[2025-01-02 06:38] VITALS: BP 124/82; PULSE 82; RESP 16; O2SAT 97
[2025-01-02 06:50] LABS: Acetaminophen (Tylenol) Level < 5.0 ug/mL (8.0-19.0); Salicylate < 0.5 mg/dL (2.8-20.0)
[2025-01-02 09:14] VITALS: BP 115/79; PULSE 88; RESP 16; O2SAT 100
--- NOTE | 2025-01-02 09:16 | ED.RN ---
safety plan, verbalized back, denies si at this time.
== END 2025-01-02 09:16 | disposition home or self-care (01) ==
PROVIDERS: Emergency Provider Emergency Medicine; PCP Family Medicine; Visit Provider Emergency Medicine
DX: T39.312A Poisoning by propionic acid derivatives, intentional self-harm, initial encounter (principal); F31.9 Bipolar disorder, unspecified; I10 Essential (primary) hypertension; F17.210 Nicotine dependence, cigarettes, uncomplicated; F17.290 Nicotine dependence, other tobacco product, uncomplicated; Z79.899 Other long term (current) drug therapy
CPT/HCPCS: 80053; 80143; 80179; 80307; 82077; 84703; 85025; 99285

== ENCOUNTER → 2025-03-11 | Outpatient (CLI) | payer MEDICAID, SELFPAY ==
--- NOTE | 2025-03-11 12:25 | RAD_ITS ---
PROCEDURE: CHEST PA AND LATERAL 03/11/2025 REASON FOR EXAM: EARLY SATIETY TECHNIQUE: CHEST PA AND LATERAL COMPARISON: None FINDINGS: Hardware: None Heart: Heart size and configuration are within normal limits. Mediastinum: Mediastinal silhouette is unremarkable. Trachea is midline. Pulmonary vasculature is unremarkable. Lungs: Lungs are expanded and clear without evidence of atelectasis, consolidation, effusion, pneumothorax or pneumonia. Bones: Normal mineralization of the osseous structures is noted. RAD/Chest PA and Lateral IMPRESSION: No acute cardiopulmonary process is identified radiographically. Reading Location: [id number]
--- NOTE | 2025-03-11 12:25 | RAD_ITS ---
PROCEDURE: ABDOMEN SINGLE VIEW 03/11/2025 REASON FOR EXAM: EARLY SATIETY TECHNIQUE: Three-view supine abdomen COMPARISON: Chest x-ray of 03/11/2025. RAD/Abdomen Single View IMPRESSION: The bowel-gas pattern is unremarkable. No mass or mass effect is seen. No significant osseous change is evident. Negative examination. Reading Location: [place] [id number]
[2025-03-11 17:54] LABS: Hematocrit 40.8 % (37-47); Hemoglobin 13.6 g/dL (12.0-15.0); Immature Granulocytes Count 0.020 X10^3/uL (0.0-0.0); Mean Corp Hgb Conc 33.3 g/dL (32-36); Mean Corpuscular Volume 94.7 fL (81-99); Mean Platelet Vol. 11.0 fl (6.2-12.0); NRBC Flagged by Analyzer 0 % (0-5); Platelet Count 304 K/mm3 (150-450); RBC Distribution Width CV 13.2 % (11.6-14.6); RBC Distribution Width SD 46.5 fl (35.1-43.9); Red Blood Count 4.31 M/mm3 (4.2-5.4); White Blood Count 8.0 K/mm3 (4.4-11.0)
[2025-03-11 17:59] LABS: AST(SGOT) 22 U/L (<=31); Alanine Aminotransfer ALT/SGPT 15 U/L (<=34); Albumin, Serum 4.2 g/dL (3.5-5.0); Alkaline Phosphatase 68 U/L (35-104); Anion Gap 15 (5-15); BUN 9 mg/dL (4-19); BUN/Creat Ratio 13.0 RATIO (10-20); CORTISOL AM 19.90 ug/dL (6.02-18.40); CRP 3.35 mg/L (0.0-3.0); Calcium,Total 9.5 mg/dL (7.6-11.0); Carbon Dioxide 23.2 mmol/L (21.0-32.0); Chloride 101 mmol/L (98-108); Globulin 2.9 g/dL (2.2-4.2); Glucose 87 mg/dL (70-99); Potassium 3.9 mmol/L (3.3-5.1)
[2025-03-13 14:08] LABS: ANTINUCLEAR ANTIBODIES DIRECT Negative (Negative)
== END | disposition home or self-care (01) ==
LOC: VSLAB 11:53 → RAD 12:14
PROVIDERS: PCP Family Medicine; Referring Provider Family Medicine; Visit Provider Family Medicine
DX: R68.81 Early satiety (principal); R63.4 Abnormal weight loss
CPT/HCPCS: 36415; 71046; 74018; 80053; 82533; 83036; 84443; 85025; 85652; 86038; 86140

== ENCOUNTER → 2025-04-04 | Outpatient (CLI) | payer MEDICAID, SELFPAY ==
[2025-04-09 23:08] LABS: Cortisol, Free 24Ur 6 ug/24 hr (6-42)
== END | disposition home or self-care (01) ==
LOC: LAB 13:26
PROVIDERS: PCP Family Medicine; Referring Provider Family Medicine; Visit Provider Family Medicine
DX: R89.1 Abnormal level of hormones in specimens from other organs, systems and tissues (principal)
CPT/HCPCS: 81050; 82530

== ENCOUNTER 2025-05-20 09:16 | Day surgery (SDC) | payer MEDICAID, SELFPAY ==
[2025-05-20] VITALS (9 sets, daily range): BP systolic 91–116; BP diastolic 56–82; PULSE 60–79; RESP 12–18; TEMP 36.2–36.7; O2SAT 96–100; BMI 31.1
[2025-05-20 09:45] LABS: Internal QC Validated? YES +Cl - CLEAR BKGD
[2025-05-20 09:46] LABS: Pregnancy, Urine Negative Negative; Record Kit Lot#,Urine Preg 0000980607
--- NOTE | 2025-05-20 09:56 | HP.PCM_ITS ---
HPI - General General Date of Admission: 05/20/25 Date of Service: 05/20/25 Chief Complaint: Diarrhea and weight loss HPI Narrative FAISAL FERNÁNDEZ, is a 25 F who presents Chief Complaint: weight loss Details: OV w/ Dr. Payne 2022 Differential diagnosis for her diarrhea does include irritable bowel syndrome with diarrhea, celiac disease, exocrine pancreatic insufficiency, microscopic lightest, collagenous colitis, accelerated gastrocolic reflex, inflammatory bowel disease, infectious colitis. Also different diagnosis would be Kathie's syndrome. She will need to get a serum gastrin level, biochemical work-up for inflammatory bowel disease and other metabolic diseases. She will also need to get stool testing as well as an upper and lower endoscopy with biopsies. She was explained alternatives, risk, benefits include not withstanding bleeding, infection, sepsis, perforation, need for emergency or . She will have an ASA of 1. 73lb weight loss in the past year since discharging from rehab a year ago - however, our records show her weight was 211lb April 2024 - loss of appetite - early satiety - experiences diarrhea and emesis - reports trying multiple RX therapies for symptoms - she reports she was seeing a doctor in [place] - [facility] - she has no idea what this showed, reports EGD was 9 years ago - reports EGD was performed for the same symptoms she is having - she does not recall any testing she has had done for her symptoms - Omeprazole daily - controls HB - weight loss of 73lbs in the past year - denies any bleeding - denies any fevers or night sweats - denies any chance of - metformin x2 months, does not recall this worsening diarrhea - occasional alcohol use - tobacco use - occasional marijuana use - limited caffeine intake - denies any NSAIDS - denies any family h/o celiac sprue - denies any family h/o IBD - eating soup does not cause as much pain or nausea -Reports she is not allowed to work due to her mental state - seen in office with her today [facility] Medical History Wears glasses Depression Alcohol use Marijuana use Abrasion Diabetes Fatty liver Easy bruising Smoker Fracture of right distal radius Early satiety Borderline personality disorder Menstrual cycle disorder Disability examination History of gestational hypertension Change in bowel habit GERD (gastroesophageal reflux disease) Gastroenteritis Irritable bowel syndrome with diarrhea Anxiety and depression Seizures Acute exacerbation of chronic low back pain Insomnia Epilepsy HTN (hypertension) Headache Back problem Anxiety Abdominal pain Home Medications Medication Instructions Recorded Last Taken Type omeprazole 40 mg capsule,delayed See Rx Instructions . Route 02/24/24 05/20/25 Rx release .COMPLEX #90 caps sodium sul 1.479 gram-potas ch See Rx Instructions PO .COMPLEX 04/18/25 05/20/25 Rx 0.188 gram-magnes sul 0.225 gram #28 tabs tablet (Sutab) metformin 500 mg tablet,extended 500 mg PO QPM #30 tab s 04/30/25 05/19/25 Rx release 24 hr Allergy/AdvReac Type Severity Reaction Status Date / Time Iodinated Contrast Media Allergy Intermediate HIVES, Verified 05/20/25 09:49 SHORT OF BREATH tramadol Allergy Intermediate itching Verified 05/20/25 09:49 morphine Allergy Itching Verified 05/20/25 09:49 oxycodone HCl (From Percocet) Allergy Hives Verified 05/20/25 09:49 red dye Allergy Hives Verified 05/20/25 09:49 hydromorphone (From Dilaudid) AdvReac Itching Verified 05/20/25 09:49 Family History Mother Endometriosis Depression with anxiety Grandfather Diabetes Aunt Diabetes Grandfather Cancer unknown CA, passed of Unknown Hypertension High cholesterol Father Depression with anxiety Bipolar 1 disorder Surgical History History of laminectomy H/O laparoscopy Social History household members: significant other housing: apartment Smoking Status: Current every day smoker tobacco type: cigarettes and e- cigarettes Electronic Cigarette Use: with nicotine alcohol intake: never substance use type: does not use caffeine: Yes what type of physical activity do you participate in: none seatbelt use: always do you feel safe at home: Yes 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 Constitutional Constitutional: Denies fatigue, fever(s), poor appetite, weight gain or weight loss Gastrointestinal Gastrointestinal: Denies belching, bloating, change in bowel habits, change in stool character, chewing difficulty, coffee ground emesis, constipation, cramping, diarrhea, dyspepsia, dysphagia, early satiety, excessive flatus, fecal incontinence, heartburn, hematemesis, hematochezia, hemorrhoids, loose stools, melena, nausea, odynophagia, rectal bleeding, tenesmus, vomiting or weight changes Physical Exam Const alert, oriented x3, no apparent distress and healthy appearing General Appearance: cooperative GI normal to inspection, nondistended, normoactive bowel sounds, soft to palpation, non-tender and non-distended Percussion: normal to percussion Rectal Exam: deferred Results Lab / Micro Data Labs: Laboratory Results - last 24 hr 05/20/25 09:35: Urine Test Negative Assessment & Plan Assessment/Plan (1) RUQ pain: (2) Weight loss: (3) Nausea & vomiting: PLAN: Assessment and Plan Assessment and Plan (1) Nausea & vomiting: Status: Acute (2) Weight loss: Status: Acute (3) RUQ pain: Status: Acute (4) Diarrhea: Status: Acute Qualifiers: Diarrhea type: unspecified type Qualified Code(s): R19.7 - Diarrhea, unspecified Orders: Orders Hepatobilliary Img w/Pharm Int Today R10.11 - Right upper quadrant pain, R11.2 - Nausea with vomiting, unspecified, R63.4 - Abnormal weight loss Plan 25-year-old female presents for follow-up with ongoing complaints of abdominal p ain, nausea, vomiting, and diarrhea. She was last seen in the office December [address] Payne with the same complaints. Workup at that time revealed a normal fecal calprotectin, mild decrease in fecal elastase (198), however, this is insignificant in a patient with chronic watery diarrhea. IBD serologies were unremarkable. Celiac serologies were unremarkable. It was recommended she undergo a colonoscopy and EGD at that time. She reports a weight loss of 73 pounds in the past year; however our records show her weight was 211 pounds April 2024. I have scheduled her for a HIDA scan, EGD, and colonoscopy. She will continue omeprazole daily and follow-up in the office post procedures. Patient Instructions: Continue Omeprazole HIDA EGD & Colon ]
[2025-05-20] MEDS: Lactated Ringers 1,000 ML 15 ML IV (09:57)
--- NOTE | 2025-05-20 10:00 | PCM.PRE.AN2 ---
ASA Classification* ASA Classification ASA Classification: 2 Assessment & Plan Anesthesia* Anesthesia Assessment Anesthesia Assessment: Discussed sedation and/or anesthesia options, risks, benefits, and alternatives with patient/parents/legal guardian/POA. Questions invited. The patient/parents/legal guardian/POA seems to understand and agrees to proceed with anesthesia plan. Reviewed the physical assessment, medical history, allergy history and patient home medications list prior to surgery/procedure/anesthetic and documented any changes. Performed airway and anesthesia risk assessments. Anesthesia Type Anesthesia Type: MAC History Source History Obtained from:: Patient and Chart Anesthesia Focused Assessment* Temperature: 98.1 F Pulse Rate: 74 Blood Pressure: 116/82 Respiratory Rate: 18 Pulse Ox: 100 Oxygen Delivery Method: Room Air Airway Assessment Mouth opens: 2 cm Mallampati Score: III Teeth Condition: Intact Neck Range of motion (ROM): Limited ROM (Slight Decrease) Labs Anesthesia Preop lab: CBC WBC, (4.4-11.0) 8.0 K/mm3 03/11/25, : RBC, (4.2-5.4) 4.31 M/mm3 03/11/25, :54 Hgb, (12.0-15.0) 13.6 g/dL 03/11/25, : Hct, (37-47) 40.8 % 03/11/25, : Plt Count, (150-450) 304 K/mm3 03/11/25, :54 CHEMISTRY Potassium, (3.3-5.1) 3.9 mmol/L 03/11/25, : Sodium, (133-145) 139 mmol/L 03/11/25, : BUN, (4-19) 9 mg/dL 03/11/25, : Creatinine, (0.70-1.20) 0.72 mg/dL 03/11/25, : Glucose, (70-99) 87 mg/dL 03/11/25, : POC Glucose, (74-106) 98 mg/dL 09/20/24, 22:06 TSH, (0.300-4.200) 2.700 uIU/mL 03/11/25, COAG PT, (11.7-14.9) 13.3 SECONDS 08/11/22, 13:27 HCG, Quant, (1-3) 55062 mIU/mL H 11/12/20, 15:21 Urine Test Negative Negative Today, 09:35 Tst Clinic Negative 03/05/25, 17:09 Pre-Assessment Diagnosis/Proposed Procedure Planned Operative Procedure(s): EGD, COLONOSCOPY Anesthesia History Anesthesia History - cushion maker hand: Anesthesia History - cushion maker hand Hx Hospitalization No 05/16/25 15:33 Any Problems With Anesthesia PONV 05/16/25 15:33 Cholinesterase deficiency No 05/16/25 15:33 You/Your Family Experience No 05/16/25 15:33 fever (hyperthermia) with Relationship Recent Exposure to Contagious No 05/20/25 09:52 Disease Does patient have nerve No 05/16/25 15:33 stimulator Patient instructed to have device shut off --Does patient have Pacemaker No 05/20/25 09:52 or ICD? When Was Last Pacemaker Check QUESTION #4 FULL TEXT: You/Your Family Experience fever (hyperthermia) with Anesthesia Last Oral Intake Last Oral intake: Last Oral Intake NPO since 07:20 05/20/25 09:52 Meds taken in AM with sips of Yes 05/20/25 09:52 water? Meds patient instructed to omeprazole 05/20/25 09:52 take am of surgery Any additional information?: Yes NPO since: 07:20 (Patient finished her prep at 7:20 AM.) Meds taken in AM with sips of water?: Yes PONV PONV - cushion maker hand: PONV - cushion maker hand Female Yes 05/16/25 15:33 HX of Motion Sickness Yes 05/16/25 15:33 HX of N/V After Surgery Yes 05/16/25 15:33 Non-Smoker No 05/16/25 15:33 Duration of Surgery greater No 05/16/25 15:33 than 60 minutes Number of Risk Factors 3 05/16/25 15:33 PONV Score Moderate Risk 05/16/25 15:33 Height & Weight Height & Weight: Anesthesia: Height & Weight Height 5 ft 3 in 05/20/25 09:52 Weight: 79.9 kg 05/20/25 09:52 Body Mass Index (BMI) 31.1 05/20/25 09:52 Respiratory Assessment Respiratory Assessment - cushion maker hand: Respiratory Tract Infection Hx - cushion maker hand Hx Respiratory Tract Infection No 05/16/25 15:33 STOP Sleep Apnea STOP Sleep Apnea - cushion maker hand: STOP Sleep Apnea - cushion maker hand Hx Hypertension Yes: BORDERLINE-NO MEDS 05/16/25 15:33 Hx Sleep Apnea No 05/16/25 15:33 CPAP BIPAP Do you snore loudly (louder No 05/16/25 15:33 than talking or can be heard Do you often feel tired/ No 05/16/25 15:33 fatigued/ sleepy during daytime? Has anyone observed you stop No 05/16/25 15:33 breathing during sleep? STOP Results Negative 05/16/25 15:33 QUESTION #5 FULL TEXT : Do you snore loudly (louder than talking or can be heard through closed doors)? Tobacco Use History Tobacco Use History - cushion maker hand: Tobacco Use History - cushion maker hand Tobacco Use Smoking Status Light Smoker (<10/day) 05/16/25 15:33 Hx Tobacco Use No 05/16/25 15:33 Years Smoking Packs Smoked per Day Smoking Cessation Date was within the last 15 years Hx Smoking Cessation Date Hx Smoking Cessation No 05/16/25 15:33 Counseling Any additional information?: Yes Smoking Status: Current every day smoker (Patient smoked today.) Hematologic Medial History Hematologic Hx - cushion maker hand: Hematologic Medical Hx - rotary driller Hx of Blood Transfusion Yes 05/16/25 15:33 Hx of Transfusion in last 3 No 05/16/25 15:33 Months Date of Last Transfusion (if within last 3 months) Ever experience any problems No 05/16/25 15:33 with transfusion(s)? Specify any problems Hx of Preganancy in last 3 No 05/16/25 15:33 Months Nurse Filling Out Transfusion VLEHMAN 05/16/25 15:33 & Questions: Date: 05/16/25 05/16/25 15:33 Time: 15:43 05/16/25 15:33 Patient unable to answer at this time (ie. confused, unrespo /Reproduction History /Reproductive History - cushion maker hand: /Reproductive Hx- cushion maker hand Hx Now No 05/16/25 15:33 Gestational Age (in weeks): EDC: Hx Hx Para Hx Section SAB No 05/16/25 15:33 Active Medications Active Medications: Current Medications Generic Name Dose Route Start Last Admin Trade Name Carolyn PRN Reason Stop Dose Admin Lactated Ringer's 1,000 mls @ 15 mls/hr 05/20/25 10:00 05/20/25 09:57 IV 15 mls/hr .Q48H GABBY Administration PFSH Medical History Wears glasses Depression Alcohol use Marijuana use Abrasion Diabetes Fatty liver Easy bruising Smoker Fracture of right distal radius Early satiety Borderline personality disorder Menstrual cycle disorder Disability examination History of gestational hypertension Change in bowel habit GERD (gastroesophageal reflux disease) Gastroenteritis Irritable bowel syndrome with diarrhea Anxiety and depression Seizures Acute exacerbation of chronic low back pain Insomnia Epilepsy HTN (hypertension) Headache Back problem Anxiety Abdominal pain Home Medications Medication Instructions Recorded Last Taken Type omeprazole 40 mg capsule,delayed See Rx Instructions .Route 02/24/24 05/20/25 Rx release .COMPLEX #90 caps sodium sul 1.479 gram-potas ch See Rx Instructions PO .COMPLEX 04/18/25 05/20/25 Rx 0.188 gram-magnes sul 0.225 gram #28 tabs tablet (Sutab) metformin 500 mg tablet,extended 500 mg PO QPM #30 tabs 04/30/25 05/19/25 Rx release 24 hr Allergy/AdvReac Type Severity Reaction Status Date / Time Iodinated Contrast Media Allergy Intermediate HIVES, Verified 05/20/25 09:49 SHORT OF BREATH tramadol Allergy Intermediate itching Verified 05/20/25 09:49 morphine Allergy Itching Verified 05/20/25 09:49 oxycodone HCl (From Percocet) Allergy Hives Verified 05/20/25 09:49 red dye Allergy Hives Verified 05/20/25 09:49 hydromorphone (From Dilaudid) AdvReac Itching Verified 05/20/25 09:49 Family History Mother Endometriosis Depression with anxiety Grandfather Diabetes Aunt Diabetes Grandfather Cancer unknown [place], passed of Unknown Hypertension High cholesterol Father Depression with anxiety Bipolar 1 disorder Surgical History History of laminectomy H/O laparoscopy Social History household members: significant other housing: apartment Smoking Status: Current every day smoker tobacco type: cigarettes and e-cigarettes Electronic Cigarette Use: with nicotine alcohol intake: never substance use type: does not use caffeine: Yes what type of physical activity do you participate in: none seatbelt use: always do you feel safe at home: Yes additional 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
--- NOTE | 2025-05-20 10:36 | PCM.POST.ANE ---
Anesthesia: Postop Eval I Current Vital Signs Temperature: 97.1 F Pulse Rate: 60 Blood Pressure: 108/78 Respiratory Rate: 16 Pulse Ox: 97 Oxygen Delivery Method: Room Air Assessment Airway patent: Yes Spontaneous unlabored respirations: Yes Mental status: Asleep nausea: No Vomiting: No Anesthesia Complication: No Fluid Hydration Crystalloid volume administer (ml): 300 Total IV fluid infused: 300 Progress Note Anesthesia document: Postop Eval 1 completed: Yes
--- NOTE | 2025-05-20 10:37 | OP.PROVAT_ITS ---
05/20/2025 Chkia Hugo Do Re : Upper GI endoscopy procedure for Pamela Alegria Dear Oanh This procedure was performed on Tuesday, May 20, 2025. My impressions and recommendations are as follows: Impressions : - LA Grade A reflux esophagitis with no bleeding. - Gastroparesis. - Erythematous duodenopathy. Biopsied. Recommendations : - Discharge patient to home. - Resume previous diet. - Continue present medications. - Await pathology results. My findings are described in the full procedure note, which is enclosed. If I can be of further assistance, please feel free to contact me at . Sincerely, Adrian Payne DO 05/20/2025 10:37:14 AM This report has been signed electronically.
--- NOTE | 2025-05-20 10:37 | OP.EGD_ITS ---
Patient Name: Pamela Alegria Procedure Date: 05/20/2025 9:56 AM Date of : 2000 Age: 25 Procedure: Upper GI endoscopy Indications: Epigastric abdominal pain, Dyspepsia, Failure to respond to medical treatment Providers: Adrian Payne DO Referring MD: Chika Hugo Do Medicines: Monitored Anesthesia Care Patient Profile: This is a 25 year old female. Refer to note in patient chart for documentation of history and physical. Patient has symptoms of acute abdominal cramping, chronic epigastric abdominal pain, chronic dyspepsia and acute vomiting. Complications: No immediate complications. Procedure: Pre-Anesthesia Assessment: - Prior to the procedure, a History and Physical was performed, and patient medications and allergies were reviewed. The patient is competent. The risks and benefits of the procedure and the sedation options and risks were discussed with the patient. All questions were answered and informed consent was obtained. Patient identification and proposed procedure were verified by the physician in the pre-procedure area. Mental Status Examination: alert and oriented. Airway Examination: normal oropharyngeal airway and neck mobility. Respiratory Examination: clear to auscultation. CV Examination: normal. Prophylactic Antibiotics: The patient does not require prophylactic antibiotics. Prior Anticoagulants: The patient has taken no anticoagulant or antiplatelet agents except for NSAID medication. ASA Grade Assessment: II - A patient with mild systemic disease. After reviewing the risks and benefits, the patient was deemed in satisfactory condition to undergo the procedure. The anesthesia plan was to use monitored anesthesia care (MAC). Immediately prior to administration of medications, the patient was re-assessed for adequacy to receive sedatives. The heart rate, respiratory rate, oxygen saturations, blood pressure, adequacy of pulmonary ventilation, and response to care were monitored throughout the procedure. The physical status of the patient was re-assessed after the procedure. After obtaining informed consent, the endoscope was passed under direct vision. Throughout the procedure, the patient's blood pressure, pulse, and oxygen saturations were monitored continuously. The Colonoscope was introduced through the mouth, and advanced to the third part of the duodenum. Small bowel enteroscopy was deemed necessary. The upper GI endoscopy was accomplished without difficulty. The patient tolerated the procedure well. Scope In: 10:19:54 AM Scope Out: 10:22:20 AM Total Procedure Duration Time 0 hours 2 minutes 26 seconds Findings: LA Grade A (one or more mucosal breaks less than 5 mm, not extending between tops of 2 mucosal folds) esophagitis with no bleeding was found 38 to 40 cm from the incisors. Suspect gastroparesis due to absence of peristalsis, patient symptoms and retained gastric contents. Diffuse moderately erythematous mucosa without active bleeding and with no stigmata of bleeding was found in the entire duodenum. Biopsies were taken with a cold forceps for histology. Verification of patient identification for the specimen was done. Estimated blood loss was minimal. Impression: - LA Grade A reflux esophagitis with no bleeding. - Gastroparesis. - Erythematous duodenopathy. Biopsied. Recommendation: - Discharge patient to home. - Resume previous diet. - Continue present medications. - Await pathology results. Procedure Code(s): --- Professional --- 87917, Small intestinal endoscopy, enteroscopy beyond second portion of duodenum, not including ileum; with biopsy, single or multiple CPT copyright 2021 [employer]. All rights reserved. The codes documented in this report are preliminary and upon auto fleet manager review may be revised to meet current compliance requirements. Adrian Payne DO 05/20/2025 10:37:14 AM This report has been signed electronically. Number of Addenda: 0 Note Initiated On: 05/20/2025 9:56 AM
--- NOTE | 2025-05-20 10:39 | OP.COLON_ITS ---
Patient Name: Pamela Alegria Procedure Date: 05/20/2025 10:22 AM Date of : 2000 Age: 25 Procedure: Colonoscopy Indications: Generalized abdominal pain, Change in bowel habits, Constipation, Obstipation, Weight loss Providers: Adrian Payne DO Referring MD: Chika Hugo Do Medicines: Monitored Anesthesia Care Patient Profile: This is a 25 year old female. Refer to note in patient chart for documentation of history and physical. Patient has symptoms of acute abdominal cramping, chronic epigastric abdominal pain, chronic dyspepsia and acute vomiting. Last Colonoscopy: several years ago. Complications: No immediate complications. Procedure: Pre-Anesthesia Assessment: - Prior to the procedure, a History and Physical was performed, and patient medications and allergies were reviewed. The patient is competent. The risks and benefits of the procedure and the sedation options and risks were discussed with the patient. All questions were answered and informed consent was obtained. Patient identification and proposed procedure were verified by the physician in the pre-procedure area. Mental Status Examination: alert and oriented. Airway Examination: normal oropharyngeal airway and neck mobility. Respiratory Examination: clear to auscultation. CV Examination: normal. Prophylactic Antibiotics: The patient does not require prophylactic antibiotics. Prior Anticoagulants: The patient has taken no anticoagulant or antiplatelet agents except for NSAID medication. ASA Grade Assessment: II - A patient with mild systemic disease. After reviewing the risks and benefits, the patient was deemed in satisfactory condition to undergo the procedure. The anesthesia plan was to use monitored anesthesia care (MAC). Immediately prior to administration of medications, the patient was re-assessed for adequacy to receive sedatives. The heart rate, respiratory rate, oxygen saturations, blood pressure, adequacy of pulmonary ventilation, and response to care were monitored throughout the procedure. The physical status of the patient was re-assessed after the procedure. After I obtained informed consent, the scope was passed under direct vision. Throughout the procedure, the patient's blood pressure, pulse, and oxygen saturations were monitored continuously. The Colonoscope was introduced through the anus and advanced to the hepatic flexure. The colonoscopy was performed without difficulty. The patient tolerated the procedure well. The quality of the bowel preparation was poor. Scope In: 10:24:42 AM Scope Out: 10:25:59 AM Total Procedure Duration Time 0 hours 1 minute 17 seconds Findings: The perianal and digital rectal examinations were normal. Copious quantities of solid stool was found in the entire colon, precluding visualization. Impression: - Preparation of the colon was poor. - Stool in the entire examined colon. - No specimens collected. Recommendation: - Discharge patient to home. - Resume previous diet. - Continue present medications. - Repeat colonoscopy because the bowel preparation was poor. Procedure Code(s): --- Professional --- 08773, 53, Colonoscopy, flexible; diagnostic, including collection of specimen(s) by brushing or washing, when performed (separate procedure) CPT copyright 2021 [employer]. All rights reserved. The codes documented in this report are preliminary and upon ampoule inspector review may be revised to meet current compliance requirements. Adrian Payne DO 05/20/2025 10:39:09 AM This report has been signed electronically. Number of Addenda: 0 Note Initiated On: 05/20/2025 10:22 AM
--- NOTE | 2025-05-20 10:40 | OP.PROVAT_ITS ---
05/20/2025 Chika Hugo Do Re : Colonoscopy procedure for Pamela Alegria Dear Oanh This procedure was performed on Tuesday, May 20, 2025. My impressions and recommendations are as follows: Impressions : - Preparation of the colon was poor. - Stool in the entire examined colon. - No specimens collected. Recommendations : - Discharge patient to home. - Resume previous diet. - Continue present medications. - Repeat colonoscopy because the bowel preparation was poor. My findings are described in the full procedure note, which is enclosed. If I can be of further assistance, please feel free to contact me at . Sincerely, Adrian Payne, 05/20/2025 10:39:09 AM This report has been signed electronically.
--- NOTE | 2025-05-20 11:00 | COLBX_PTH ---
PATIENT: FAISAL FERNÁNDEZ LOC: EN U#:[id number] AGE/SX: 25/ ROOM: RE05/20/[address]: Dr. Adrian Payne DO : 2000 BED: DIS: 05/20/2025 SPEC #: [id number] RECD: 05/20/25 11:26 STATUS: ISHAAN RERosa #: [id number] SUKHDEEP: 05/20/25 11:[address]: Adrian Payne DEPT: SURGICAL PATHOLOGY RECD BY: Elijah Yarbrough ENTERED: 05/20/25 12:12 SP TYPE: COLON BX OTHR DR: Chika Hugo, [facility], DO Tissues: A - Duodenum, NOS Procedures: Surgery Specimen Level IV HEADER OPERATION: Colonoscopy, EGD with biopsy PRE-OP DIAGNOSIS: Right upper quadrant pain, weight loss, nausea / vomiting TISSUE SUBMITTED: A- Duodenum biopsy MICROSCOPIC DIAGNOSIS A. Duodenum, biopsy: - Normal villous architecture with focally increased Intraepithelial lymphocytes - see note. Note: This pattern of injury is etiologically nonspecific and the differential diagnosis includes sensitivity to gluten and non-gluten proteins, small intestinal bacterial overgrowth, stasis related changes, infection, protein calorie malnutrition, tropical sprue, and medication injury (NSAIDs, Olmesartan / Benicar, Mycophenolic acid, Idelalisib, for example). If celiac disease is a clinical concern, additional clinical studies, such as tTG-IgA, are recommended. MICROSCOPIC DESCRIPTION Slides are reviewed. GROSS DESCRIPTION A. Received in fixative is one container labeled with the patient's name and designated "Duodenum biopsy." The specimen consists of two irregular fragments of baum tissue, each measuring 0.4 cm. The specimen is totally submitted in one cassette. DE 05/20/2025 CPT:65879
--- NOTE | 2025-05-20 12:18 | PCM.POSTANE2 ---
Anesthesia Postop Eval I Sum Postop Eval Completion status Anesthesia document: Postop Eval 1 completed: Yes Anesthesia Postop Eval I Summary Anesthesia Postop Eval I Summary: Anesthesia Postop Eval I: Assessment Summary Airway patent Yes 05/20/25 10:38 [email or web address] Spontaneous unlabored Yes 05/20/25 10:38 [email or web address] respirations Mental status Asleep 05/20/25 10:38 [email or web address] nausea No 05/20/25 10:38 [email or web address] Vomiting No 05/20/25 10:38 [email or web address] Anesthesia Postop Eval I: Fluid Summary Crystalloid volume administer 300 05/20/25 10:38 [email or web address] (ml) Colloids volume administered ( ml) Blood Product volume administered (ml) Total IV fluid infused 300 05/20/25 10:38 [email or web address] Anesthesia Postop Eval I: Summary Notes Anesthesia Complication No 05/20/25 10:38 [email or web address] Anesthesia Complication Comment: Post-operative progress note Anesthesia: Postop Eval II Evaluation Mental status: Awake and Calm Pain Level: 0 nausea: No Vomiting: No Complications Anesthesia Complication: No
== END 2025-05-20 11:18 | disposition home or self-care (01) ==
LOC: EN 09:16 → AC 09:17
PROVIDERS: Anesthesiology; PCP Family Medicine; Referring Provider Family Medicine; Visit Provider Internal Medicine Gastroenterology
PROC: 0DJD8ZZ Inspection of Lower Intestinal Tract, Via Natural or Artificial Opening Endoscopic (ICD-10-PCS; CPT 45378; principal; 2025-05-20 10:55)
DX: R19.7 Diarrhea, unspecified (principal); E11.9 Type 2 diabetes mellitus without complications; F17.210 Nicotine dependence, cigarettes, uncomplicated; K31.84 Gastroparesis; K21.00 Gastro-esophageal reflux disease with esophagitis, without bleeding; Z79.84 Long term (current) use of oral hypoglycemic drugs; R10.11 Right upper quadrant pain; I10 Essential (primary) hypertension; R63.4 Abnormal weight loss; Z79.899 Other long term (current) drug therapy; F17.290 Nicotine dependence, other tobacco product, uncomplicated; R11.2 Nausea with vomiting, unspecified; K31.89 Other diseases of stomach and duodenum
CPT/HCPCS: 45378; 44361; 81025; 82962; 88305; J2405